=== PATIENT | male | born 1985 | race Caucasian/White ===

== ENCOUNTER 2016-06-03 11:30 | Outpatient (RCR) | payer MEDICARE, MEDICAID ==
--- OUTSIDE RECORDS SUMMARY | 2016-04-15 09:52 | XMS REPORT ---
Author Regina Gatica [facility] Address [address] [place], [place] [id number] Care Team Providers Care Computer Systems Technology Instructor Name Role Phone Regina Blas PCP Unavailable Allergies and Adverse Reactions Name Reaction Notes Latex Plan of Treatment Planned Activity Comments Planned Date Planned Time Plan/Goal FLU VAC NO PRSV 4 PEREZ 3 YRS+ 02/20/2015 12:00 AM CULTURE OTHR SPECIMN AEROBIC 04/09/2015 12:00 AM EXTREMITY STUDY 04/04/2015 12:00 AM X-RAY EXAM OF ANKLE 04/04/2015 12:00 AM X-RAY EXAM OF KNEE 3 04/04/2015 12:00 AM Medications Active Name Start Date Estimated Completion Date SIG Comments ProAir HFA 90 mcg/actuation inhalation HFA aerosol inhaler 03/20/20152015 inhale 1 - 2 puffs (90 - 180 mcg) by inhalation route every 4-6 hours as needed Naprosyn 500 mg oral tablet 04/04/2015 07/03/2015 take 1 tablet (500 mg) by oral route every 12 hours with food for 30 days clindamycin HCl 300 mg oral capsule 04/09/2015 Take one capsule three times day for the next 10 days. Problem List Not available. Vital Signs Date Time BP-Sys(mm[Hg] BP-Ashly(mm[Hg]) HR(bpm) RR(rpm) Temp WT HT HC BMI BSA BMI Percentile O2 Sat(%) 04/09/2015 1:33:00 PM 120 mmHg 82 mmHg 109 bpm 100.1 F 95 % 04/04/2015 11:01:00 AM 100 mmHg 80 mmHg 103 bpm 18 rpm 99.6 F 64 in 98 % 03/20/2015 2:10:00 PM 140 mmHg 90 mmHg 110 bpm 99.4 F 265 lbs 62 in 48.47 kg/m2 2.29 m2 98 % 02/20/2015 11:22:00 AM 130 mmHg 82 mmHg 88 bpm 99.5 F 265 lbs 62 in 48.4686 kg/m 2.2931 m 97 % 11/20/2014 12:38:00 PM 148 mmHg 98 mmHg 92 bpm 10 rpm 265 lbs 62 in 48.47 kg/m2 2.29 m2 97 % 11/20/2014 11:46:00 AM 140 mmHg 98 mmHg 92 bpm 98.7 F 98 % Social History Name Description Comments Tobacco Former smoker quit in 2008 Alcohol Current some day about once a month or two months. Denies illicit substance abuse History of Procedures Date Ordered Description Order Status 02/20/2015 12:00 AM COMPLETE CBC W/AUTO DIFF WBC Returned 02/20/2015 12:00 AM COMPREHEN METABOLIC PANEL Returned 02/20/2015 12:00 AM LIPID PANEL Returned 03/20/2015 12:00 AM CHEST X-RAY 2VW FRONTAL&LATL Returned Results Summary Not available. History Of Immunizations Not available. 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 Lymphedema of lower extremity lower extremeties right m[place] then left Sleep apnea Nov 20 2014 12:06PM Paraplegia Nov 20 2014 12:06PM Spina bifida Nov 20 2014 12:06PM Lymphedema Feb 20 2015 11:25AM Hyperlipidemia Feb 20 2015 11:25AM Sleep apnea Feb 28 2015 2:26PM Spina bifida Mar 20 2015 2:37PM Short of breath on exertion Mar 20 2015 2:16PM Sternum pain Mar 20 2015 2:16PM Rib pain on left side Mar 20 2015 2:16PM Asthma exacerbation Mar 20 2015 2:16PM Costochondritis Mar 20 2015 2:16PM Ankle pain, chronic, left Apr 04 2015 11:05AM Knee pain, acute, right Apr 04 2015 11:05AM Lymphedema Apr 04 2015 11:05AM Leg pain, central, left Apr 04 2015 11:05AM Right Lower Pressure ulcer Apr 09 2015 1:37PM Spina bifida Apr 09 2015 1:37PM Payers Insurance Name Company Name Plan Name Plan Number Policy Number Policy Group Number Start Date Medicare Part B Medicare Of [place] [id number] N/A [employer] [place] [employer] [place] [id number] N/A History of Encounters Visit Date Visit Type Provider 04/09/2015 Office visit Regina Blas UNIVERSAL GRINDER SET UP OPERATOR 04/04/2015 Office visit Beverley Salazar UNIVERSAL GRINDER SET UP OPERATOR 03/20/2015 Office visit Beverley Salazar UNIVERSAL GRINDER SET UP OPERATOR 02/20/2015 Office visit Beverley Salazar UNIVERSAL GRINDER SET UP OPERATOR 11/20/2014 Office visit Beverley Salazar UNIVERSAL GRINDER SET UP OPERATOR
== END 2016-07-01 16:34 | disposition home or self-care (01) ==
PROVIDERS: ATTEND Nurse Practitioner Family
DX: I89.0 Lymphedema, not elsewhere classified (principal)

== ENCOUNTER → 2017-02-12 | Outpatient (CLI) | payer MEDICARE, MEDICAID ==
--- NOTE | 2017-02-12 12:20 | Diagnostic Imaging Report ---
INDICATION: Fall, neck pain. Three views obtained in wheelchair. FINDINGS: Odontoid view is normal. Lateral view shows good alignment of C1-C6. C7 is not visualized on the lateral view. Body heights and disc spaces are well-maintained. AP view shows good alignment. No fractures are demonstrated. IMPRESSION: Limited cervical spine as described with only C1 through C6 visualized in the lateral view. No abnormalities demonstrated. Dictated by: Dictated on workstation # [id number]
--- NOTE | 2017-02-12 12:26 | Diagnostic Imaging Report ---
INDICATION: Fell two days ago. Continued neck and back pain. FINDINGS: AP and lateral views including swimmer's view. Good alignment of vertebral bodies C7-T1 is visualized and appears in good alignment. Thoracic spine shows body heights well-maintained. Minimal degenerative disc disease noted throughout the thoracic spine. Pedicles are intact. PSYCHOLOGICAL OPERATIONS shunt is visualized and is intact where seen. IMPRESSION: Minimal degenerative thoracic disc disease changes otherwise negative thoracic spine. Dictated by: Dictated on workstation # [id number]
== END ==
LOC: RAD 11:12
PROVIDERS: ATTEND Family Medicine
DX: M54.5 Low back pain (principal); M54.2 Cervicalgia
CPT/HCPCS: 72040; 72072

== ENCOUNTER 2017-03-31 13:52 | Emergency (ER) | payer MEDICARE, MEDICAID ==
[~2017-03-31] VITALS: Ht 152.4 cm; Wt 131.5 kg
[2017-03-31 14:27] LABS: BASOPHILS % (AUTO) 0 % (0-10); EOSINOPHILS % (AUTO) 0 % (0-10); LYMPHOCYTES # (AUTO) 1.8 X 10^3 (1.0-4.0); LYMPHOCYTES % (AUTO) 6 % (12-44); MEAN CORPUSCULAR HEMOGLOBIN 28 PG (25-34); MEAN CORPUSCULAR HGB CONC 34 G/DL (32-36); MEAN CORPUSCULAR VOLUME 81 FL (80-99); MEAN PLATELET VOLUME 9.5 FL (7.4-10.4); MONOCYTES # (AUTO) 2.2 X 10^3 (0.0-1.0); MONOCYTES % (AUTO) 8 % (0-12); NEUTROPHILS # (AUTO) 25.8 X 10^3 (1.8-7.8); NEUTROPHILS % (AUTO) 86 % (42-75); PLATELET COUNT 520 10^3/uL (130-400); RED CELL DISTRIBUTION WIDTH 13.9 % (10.0-14.5); WHITE BLOOD COUNT 29.9 10^3/uL (4.3-11.0)
[2017-03-31 14:40] LABS: NEUTROPHILS % (MANUAL) 55 %
[2017-03-31 14:41] LABS: BAND NEUTROPHILS 29 %; BASOPHILS % (MANUAL) 0 %; EOSINOPHILS % (MANUAL) 0 %; LYMPHOCYTES % (MANUAL) 11 %; REACTIVE LYMPHOCYTES 1 %
[2017-03-31] MEDS ORDERED: NS IV 1000 ML 1,000 ML IV ONE ×2 (14:44)
[2017-03-31] MEDS ORDERED: PIPERACILLIN SODIUM/TAZOBACTAM 4.5 GM in NS (IVPB) 100 ML IV ONE (14:45)
[2017-03-31 14:59] LABS: INR 1.1 (0.8-1.4); PROTHROMBIN TIME PATIENT 14.4 SEC (12.2-14.7)
[2017-03-31 15:07] LABS: BILIRUBIN,TOTAL 0.6 MG/DL (0.1-1.0); CALCIUM 9.7 MG/DL (8.5-10.1); CREATININE SERUM 3.19 MG/DL (0.60-1.30); POTASSIUM 4.8 MMOL/L (3.6-5.0); TOTAL PROTEIN 7.8 GM/DL (6.4-8.2)
[2017-03-31] MEDS ORDERED: ONDANSETRON 4 MG/2 ML (SDV) Z0FRAN IVP ONE (15:15)
--- OUTSIDE RECORDS SUMMARY | 2017-03-31 15:21 | XMS REPORT ---
Author Regina Gatica [facility] Address [address] [place], [place] [id number] Care Team Providers Care Urban Planning Professor Name Role Phone Regina Blas PCP Unavailable [...] with hypersomnolence 10/16/2014 Sleep study done at [facility] found severe obstructive sleep apnea, CPAP at 15cm water pressure ordered through [place], Insurance refusing to pay for CPAP but [...] Date Medicare Part B Medicare Of [place] [id number] N/A [employer] [place] Plan [employer] [place] [id number] N/A History of Encounters Visit Date Visit Type Provider 04/09/2015 Office visit Regina Blas INVASIVE CARDIOLOGIST 04/04/2015 Office visit Beverley Salazar INVASIVE CARDIOLOGIST 03/20/2015 Office visit Beverley Salazar INVASIVE CARDIOLOGIST 02/20/2015 Office visit Beverley Salazar INVASIVE CARDIOLOGIST 11/20/2014 Office visit Beverley Salazar INVASIVE CARDIOLOGIST
--- OUTSIDE RECORDS SUMMARY | 2017-03-31 15:22 | XMS REPORT ---
Author Author Beverley Salazar Organization [facility] Address [address] [place] [id number] Care Team Providers Care Game Designer Name Role Phone Beverley Salazar PCP Unavailable Allergies and Adverse Reactions Name Reaction Notes Latex No known drug allergy Plan of Treatment Planned Activity Comments Planned Date Planned Time Plan/Goal FLU VAC NO PRSV 4 PEREZ 3 YRS+ 02/20/2015 12:00 AM EXTREMITY STUDY 04/04/2015 12:00 AM X-RAY EXAM OF ANKLE 04/04/2015 12:00 AM X-RAY EXAM OF KNEE 3 04/04/2015 12:[address] HEAD/BRAIN W/O & W/DYE 05/03/2015 12:00 AM COMPLETE CBC W/AUTO DIFF WBC 05/03/2015 12:00 AM COMPREHEN METABOLIC PANEL 05/03/2015 12:00 AM ASSAY OF TROPONIN QUANT 10/08/2015 12:00 AM COMPLETE CBC W/AUTO DIFF WBC 09/27/2015 12:00 AM COMPREHEN METABOLIC PANEL 09/27/2015 12:00 AM LIPID PANEL 09/27/2015 12:00 AM GLYCOSYLATED HEMOGLOBIN TEST 09/27/2015 12:00 AM ASSAY THYROID STIM HORMONE 09/27/2015 12:00 AM URINALYSIS AUTO W/O SCOPE 09/27/2015 12:00 AM ASSAY OF FREE THYROXINE 09/27/2015 12:00 AM Epigastric burning and painHistory of hiatel hernia 11/05/2015 2:00 PM Medications Active Name Start Date Estimated Completion Date SIG Comments Silvadene 1 % topical cream 08/16/2015 11/14/2015 apply to affected area(s) by topical route daily for 30 days Aquacel Foam 6 X 6 " topical bandage apply bandage to affected area(s) lisinopril 5 mg oral tablet 09/27/2015 03/25/2016 take 1 tablet (5 mg) by oral route once daily for 30 days omeprazole 20 mg oral capsule,delayed release(DR/EC) 10/08/2015 02/05/2016 take 1 capsule (20 mg) by oral route once daily before a meal for 30 days Name Start Date Expiration Date SIG Comments clindamycin HCl 300 mg oral capsule 04/09/2015 Take one capsule three times day for the next 10 days. Bactroban 2 % topical ointment 07/25/2015 08/24/2015 apply a small amount to the affected area by topical route 3 times per day for 10 days sulfamethoxazole-trimethoprim 800-160 mg oral tablet 07/25/2015 08/04/2015 take 1 tablet by oral route every 12 hours for 10 days Discontinued Name Start Date Discontinued Date SIG Comments ProAir HFA 90 mcg/actuation inhalation HFA aerosol inhaler 03/20/20152015 inhale 1 - 2 puffs (90 - 180 mcg) by inhalation route every 4-6 hours as needed buspirone 10 mg oral tablet 04/12/2015 07/01/2015 take 0.5 tablet by oral route 2 times a day as needed for 30 days citalopram 20 mg oral tablet 04/12/2015 09/27/2015 take 0.5 tablet by oral route daily Naprosyn 500 mg oral tablet 07/01/2015 09/27/2015 take 1 tablet (500 mg) by oral route every 12 hours with food for 30 days Problem List Description Status Onset Hydrocephalus Active 05/03/2015 Headache Active 05/03/2015 Venous ulcer Active 05/03/2015 Vital Signs Date Time BP-Sys(mm[Hg] BP-Ashly(mm[Hg]) HR(bpm) RR(rpm) Temp WT HT HC BMI BSA BMI Percentile O2 Sat(%) 10/25/2015 2:43:00 PM 132 mmHg 80 mmHg 102 bpm 22 rpm 98.1 F 98 % 10/08/2015 10:59:00 AM 142 mmHg 82 mmHg 93 bpm 20 rpm 98.7 F 96 % 09/27/2015 3:48:00 PM 154 mmHg 84 mmHg 95 bpm 18 rpm 98 F 61 in 98 % 08/16/2015 3:47:00 PM 110 mmHg 80 mmHg 112 bpm 16 rpm 99 F 61 in 97 % 07/25/2015 3:00:00 PM 139 mmHg 94 mmHg 114 bpm 20 rpm 98.1 F 306 lbs 61 in 57.82 kg/m2 2.44 m2 98 % 07/01/2015 2:03:00 PM 140 mmHg 90 mmHg 97 bpm 18 rpm 99.4 F 100 % 05/03/2015 3:03:00 PM 134 mmHg 70 mmHg 80 bpm 16 rpm 98.7 F 98 % 04/12/2015 1:18:00 PM 136 mmHg 78 mmHg 82 bpm 97.2 F 306 lbs 100 % 04/09/2015 1:33:00 PM 120 mmHg 82 mmHg [...] Ordered Description Order Status 02/20/2015 12:00 AM Occupational Therapy Consult Reviewed 02/20/2015 12:00 AM Physical Therapy Consultation Returned 02/20/2015 12:00 AM COMPLETE CBC W/AUTO DIFF WBC Returned 02/20/2015 12:00 AM COMPREHEN METABOLIC PANEL Returned 02/20/2015 12:00 AM LIPID PANEL Returned 03/20/2015 12:00 AM CHEST X-RAY 2VW FRONTAL&LATL Returned 04/09/2015 12:00 AM CULTURE OTHR SPECIMN AEROBIC Returned 07/01/2015 12:00 AM Physical Therapy Consult Returned 10/08/2015 12:00 AM ELECTROCARDIOGRAM COMPLETE Returned 10/08/2015 12:00 AM CHEST X-RAY 2VW FRONTAL&LATL Returned 10/08/2015 12:00 AM COMPLETE CBC W/AUTO DIFF WBC Returned 10/08/2015 12:00 AM COMPREHEN METABOLIC PANEL Returned Results Summary Not available. History Of Immunizations Not available. History of Past Illness Name Date of Onset Comments Anemia Asthma Insomnia Seizure Sleep apnea with hypersomnolence 10/16/2014 Sleep study done at [facility] found severe obstructive sleep apnea, CPAP at 15cm water pressure ordered through [place], Insurance refusing to pay for CPAP but can do nocturnal Oxygen Spina Bifida With Hydrocephalus Paraplegic 1988 due to spina bifida Lymphedema of lower extremity lower extremeties right [place] then left Hydrocephalus 05/03/2015 Headache 05/03/2015 Venous ulcer 05/03/2015 Sleep apnea Nov 20 2014 12:06PM Paraplegia [...] 1:37PM Spina bifida Apr 09 2015 1:37PM Anxiety Apr 12 2015 1:24PM Hydrocephalus May 03 2015 3:08PM History of pituitary cancer May 03 2015 3:08PM Headache May 03 2015 3:08PM Blurred vision May 03 2015 3:08PM History of spina bifida May 03 2015 3:08PM Venous ulcer May 03 2015 3:08PM Wrist pain, acute, left Jul 01 2015 2:05PM Paraplegic immobility syndrome Jul 01 2015 2:05PM Cellulitis Jul 25 2015 3:01PM Spina bifida Jul 25 2015 3:01PM Paraplegia Jul 25 2015 3:01PM Morbid obesity with BMI of 50.0-59.9, adult Jul 25 2015 3:01PM Decubitus skin ulcer Aug 16 2015 3:52PM Hypertension Sep 27 2015 3:51PM Obesity Sep 27 2015 3:51PM Lymphedema Sep 27 2015 3:51PM Sleep apnea Sep 27 2015 3:51PM Paraplegic immobility syndrome Sep 27 2015 3:51PM Family history of diabetes mellitus Sep 27 2015 3:51PM Family history of hypothyroidism Sep 27 2015 3:51PM Chest tightness or pressure Oct 08 2015 11:02AM Epigastric burning sensation Oct 08 2015 11:02AM Hypertension Oct 08 2015 11:02AM Hydrocephalus Oct 08 2015 11:02AM Decubitus skin ulcer Sep 27 2015 3:51PM Decubitus skin ulcer Oct 25 2015 2:47PM Spina bifida Oct 25 2015 2:47PM Paraplegia Oct 25 2015 2:47PM Incontinent of urine Oct 25 2015 2:47PM Payers Insurance Name Company Name Plan Name Plan Number Policy Number Policy Group Number Start Date Medicare Part B Medicare Of [place] [id number] N/A [employer] [place] Plan [employer] [place] Plan [id number] N/A History of Encounters Visit Date Visit Type Provider 10/30/2015 Office visit Beverley Salazar APRN 10/25/2015 Office visit Beverley Salazar APRN 10/08/2015 Office visit Regina Blas APRN 09/27/2015 Office visit 09/27/2015 Office visit Beverley Salazar APRN 08/16/2015 Office visit Beverley Salazar APRN 07/25/2015 Office visit Beverley Salazar APRN 07/01/2015 Office visit Beverley Salazar APRN 05/03/2015 Office visit Regina Blas APRN 04/12/2015 Office visit Beverley Salazar APRN 04/09/2015 Office visit Regina Blas APRN 04/04/2015 Office visit 04/04/2015 Office visit Beverley Salazar APRN 03/20/2015 Office visit 03/20/2015 Office visit Beverley Salazar APRN 02/20/2015 Office visit Beverley Salazar APRN 11/20/2014 Office visit Beverley Salazar APRN
--- OUTSIDE RECORDS SUMMARY | 2017-03-31 15:22 | XMS REPORT ---
Author Author Beverley Salazar Organization [facility] Address [address] [place], [place] [id number] Care Team Providers Care Sales Agent Pest Control Service Name Role Phone Beverley Salazar PCP Unavailable [...] ASSAY OF FREE THYROXINE 09/27/2015 12:00 AM X-RAY EXAM TRUNK SPINE STAND 01/23/2016 12:00 AM Epigastric burning and painHistory of hiatel hernia 11/05/2015 2:00 PM Medications Active Name Start Date Estimated Completion Date SIG Comments Aquacel Foam 6 X 6 " topical bandage apply bandage to affected area(s) docusate sodium 100 mg oral capsule 11/27/2015 11/21/2016 take 1 capsule (100 mg) by oral route 2 times per day for 90 days Metamucil oral powder 11/27/2015 11/21/2016 use as directed 1 scoop in liquid of choice by oral route qd Probiotic OTC as recommended by pharmacist 11/27/2015 11/21/2016 use daily omeprazole 20 mg oral capsule,delayed release(DR/EC) 12/06/2015 06/03/2016 TAKE ONE CAPSULE BY MOUTH ONE TIME DAILY lisinopril 5 mg oral tablet 12/10/2015 06/07/2016 take 1 tablet (5 mg) by oral route once daily for 90 days tizanidine 2 mg oral tablet 03/03/2016 03/17/2016 take 1-2 tablets by oral route every 8 hours as needed for 14 days Tylenol-Codeine #3 300-30 mg oral tablet 03/03/2016 03/07/2016 take 1 tablet by oral route every 6 hours as needed for 4 days Name Start Date Expiration Date SIG [...] route every 12 hours for 10 days Silvadene 1 % topical cream 08/16/2015 11/14/2015 apply to affected area(s) by topical route daily for 30 days omeprazole 20 mg oral capsule,delayed release(DR/EC) 10/08/2015 02/05/2016 take 1 capsule (20 mg) by oral route once daily before a meal for 30 days Discontinued Name Start Date Discontinued Date [...] HC BMI BSA BMI Percentile O2 Sat(%) 03/03/2016 11:25:00 AM 96 mmHg 60 mmHg 94 bpm 98.1 F 95 % 02/04/2016 11:43:00 AM 120 mmHg 80 mmHg 88 bpm 18 rpm 97.8 F 99 % 01/23/2016 11:06:00 AM 114 mmHg 80 mmHg 81 bpm 18 rpm 98 F 97 % 11/30/2015 3:11:00 PM 107 bpm 20 rpm 99 F 98 % 10/25/2015 2:43:00 PM 132 mmHg 80 mmHg [...] rpm 98.1 F 306 lbs 61 in 57.8176 kg/m 2.4441 m 98 % 07/01/2015 2:03:00 PM 140 mmHg [...] bpm 99.4 F 265 lbs 62 in 48.4686 kg/m 2.2931 m 98 % 02/20/2015 11:22:00 AM 130 mmHg 82 mmHg 88 bpm 99.5 F 265 lbs 62 in 48.47 kg/m2 2.29 m2 97 % 11/20/2014 12:38:00 PM 148 mmHg 98 mmHg 92 bpm 10 rpm 265 lbs 62 in 48.4686 kg/m 2.2931 m 97 % 11/20/2014 11:46:00 AM 140 mmHg [...] 10/08/2015 12:00 AM COMPREHEN METABOLIC PANEL Returned 11/30/2015 12:00 AM HEPATIC FUNCTION PANEL Returned 11/30/2015 12:00 AM OCCULT BLD FECES 1-3 TESTS Reviewed Results Summary Data and Description Results 11/30/2015 2:55 PM SGOT/AST 15.0 IU/LSGPT/ALT 23.0 IU/LALK PHOS 68.0 IU/LTOTAL PROTEIN 6.90 g/dLALBUMIN 4.20 g/dLTOTAL BILI 0.20 mg/dLDIRECT BILI 0.10 mg/ dLINDIRECT BILI 0.10 mg/dL History Of Immunizations Not available. 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 bifida Lymphedema of lower extremity lower extremeties right [place] then left Hydrocephalus 05/03/2015 Headache 05/03/2015 Venous ulcer 05/03/2015 Incontinence Sleep apnea Sleep apnea Nov 20 2014 12:06PM Paraplegia [...] Incontinent of urine Oct 25 2015 2:47PM Constipation Nov 27 2015 10:34PM Pale stool Nov 30 2015 3:12PM Blood in stool Nov 30 2015 3:12PM Hemorrhoid Nov 30 2015 3:12PM Decubitus skin ulcer Dec 26 2015 9:10PM Spina bifida Dec 26 2015 9:10PM Paraplegia Dec 26 2015 9:10PM Thoracic back pain Jan 23 2016 11:08AM Lumbar back pain Jan 23 2016 11:08AM Back pain Feb 04 2016 11:45AM Sleep apnea with cognitive complaints Feb 04 2016 11:45AM Muscle strain Mar 03 2016 11:27AM Payers Insurance Name Company Name Plan Name Plan Number Policy Number Policy Group Number Start Date Medicare Part A Medicare RHC [id number] N/A [employer] - [facility] [place] State Plan [employer] - [place] [facility] State Plan [id number] N/A Medicare Part A Medicare - Lab/Xray [id number] N/A Medicare Part B Medicare Of [place] [id number] N/A [employer] [place] State Plan [employer] [place] State Plan [id number] N/A History of Encounters Visit Date Visit Type Provider 03/03/2016 Office visit Beverley Salazar PARTY PLAN SALES AGENT 02/04/2016 Office visit Beverley Salazar PARTY PLAN SALES AGENT 01/23/2016 Office visit Beverley Salazar APRN 11/30/2015 Office visit Regina Blas PARTY PLAN SALES AGENT 10/30/2015 Voided Beverley Salazar PARTY PLAN SALES AGENT 10/25/2015 Office visit Beverley Salazar PARTY PLAN SALES AGENT 10/08/2015 Office visit Regina Blas PARTY PLAN SALES AGENT 09/27/2015 Office visit 09/27/2015 Office visit Beverley Salazar PARTY PLAN SALES AGENT 08/16/2015 Office visit Beverley Salazar PARTY PLAN SALES AGENT 07/25/2015 Office visit Beverley Salazar PARTY PLAN SALES AGENT 07/01/2015 Office visit Beverley Salazar APRN 05/03/2015 Office visit Regina Blas PARTY PLAN SALES AGENT 04/12/2015 Office visit Beverley Salazar APRN 04/09/2015 Office visit Regina Blas APRN 04/04/2015 Office visit 04/04/2015 Office visit Beverley Salazar PARTY PLAN SALES AGENT 03/20/2015 Office visit 03/20/2015 Office visit Beverleywendy Salazar APRN 02/20/2015 Office visit Beverley Salazar APRN 11/20/2014 Office visit Beverley Salazar APRN
--- OUTSIDE RECORDS SUMMARY | 2017-03-31 15:23 | XMS REPORT ---
Author Author Beverley Salazar Organization [facility] Address [address] [place] [id number] Care Team Providers Care Culinary Specialist Name Role Phone Beverley Salazar PCP Unavailable [...] with hypersomnolence 10/16/2014 Sleep study done at [facility] found severe obstructive sleep apnea, CPAP at 15cm water pressure ordered through [place], Insurance refusing to pay for CPAP but [...] Date Medicare Part B Medicare Of [place] [id number] N/A [employer] [place] [employer] [place] [id number] N/A History of Encounters Visit Date Visit [...]
--- OUTSIDE RECORDS SUMMARY | 2017-03-31 15:24 | XMS REPORT ---
Author Author Beverley Salazar Organization [facility] Address [address] [place], [place] [address] Care Team Providers Care Preparation Department Supervisor Name Role Phone Beverley Salazar PCP Unavailable Allergies and Adverse Reactions Name Reaction Notes Latex Plan of Treatment Planned Activity Comments Planned Date Planned Time Plan/Goal COMPLETE CBC W/AUTO DIFF WBC 02/20/2015 12:00 AM COMPREHEN METABOLIC PANEL 02/20/2015 12:00 AM LIPID PANEL 02/20/2015 12:00 AM FLU VAC NO PRSV 4 PEREZ 3 YRS+ 02/20/2015 12:00 AM Medications Not available. Problem List Not available. Vital Signs Date Time BP-Sys(mm[Hg] BP-Ashly(mm[Hg]) HR(bpm) RR(rpm) Temp WT HT HC BMI BSA BMI Percentile O2 Sat(%) 02/20/2015 11:22:00 AM 130 mmHg 82 mmHg [...] Denies illicit substance abuse History of Procedures Not available. Results Summary Not available. History Of Immunizations Not available. 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
--- OUTSIDE RECORDS SUMMARY | 2017-03-31 15:25 | XMS REPORT ---
Author Author Beverley Salazar Organization [facility] Address [address] [place] [id number] Care Team Providers Care Woodwork Teacher Name Role Phone Beverley Salazar PCP Unavailable [...] with hypersomnolence 10/16/2014 Sleep study done at [facility] found severe obstructive sleep apnea, CPAP at 15cm water pressure ordered through [place], Insurance refusing to pay for CPAP but [...] 2015 2:47PM Paraplegia Oct 25 2015 2:47PM Payers Insurance Name Company Name Plan Name Plan Number Policy Number Policy Group Number Start Date Medicare Part B Medicare Of [place] [id number] N/A [employer] [place] State Plan Amerigroup [place] State Plan [id number] N/A History of Encounters Visit Date Visit Type Provider 10/25/2015 Office visit Beverley Salazar APRN 10/08/2015 [...]
--- OUTSIDE RECORDS SUMMARY | 2017-03-31 15:25 | XMS REPORT ---
Author Author Beverley Salazar Organization [facility] Address [address] [place], [place] [address] Care Team Providers Care Densitometrist Name Role Phone Beverley Salazar PCP Unavailable [...] EXAM TRUNK SPINE STAND 01/23/2016 12:00 AM COMPLETE CBC W/AUTO DIFF WBC 03/17/2016 12:00 AM COMPREHEN METABOLIC PANEL 03/17/2016 12:00 AM LIPID PANEL 03/17/2016 12:[address] HEAD/BRAIN W/O & W/DYE 03/13/2016 12:00 AM X-RAY EXAM NECK SPINE 2-3 VW 03/13/2016 12:00 AM URINALYSIS AUTO W/O SCOPE 03/17/2016 12:00 AM Epigastric burning and painHistory of [...] 8 hours as needed for 14 days lisinopril 5 mg oral tablet 03/06/2016 TAKE ONE TABLET BY MOUTH ONE TIME DAILY -LOT: Name Start Date Expiration Date SIG Comments [...] daily before a meal for 30 days Tylenol-Codeine #3 300-30 mg oral tablet 03/03/2016 03/07/2016 take 1 tablet by oral route every 6 hours as needed for 4 days Discontinued Name Start Date Discontinued Date [...] HC BMI BSA BMI Percentile O2 Sat(%) 03/13/2016 6:40:00 PM 150 mmHg 90 mmHg 105 bpm 18 rpm 97.5 F 99 % 03/03/2016 11:25:00 AM 96 mmHg 60 mmHg [...] with hypersomnolence 10/16/2014 Sleep study done at [facility] found severe obstructive sleep apnea, CPAP at 15cm water pressure ordered through [facility], Insurance refusing to pay for CPAP but [...] 11:45AM Muscle strain Mar 03 2016 11:27AM Obstructive sleep apnea hypopnea, severe Mar 03 2016 11:27AM Hypertension Mar 03 2016 11:27AM Headache Mar 13 2016 6:43PM Neck and shoulder pain Mar 13 2016 6:43PM Vision blurred Mar 13 2016 6:43PM Hydrocephalus Mar 13 2016 6:43PM Hypertension Mar 13 2016 6:43PM Spina bifida Mar 13 2016 6:43PM Paraplegia Mar 13 2016 6:43PM Payers Insurance Name Company Name Plan Name Plan Number Policy Number Policy Group Number Start Date Medicare Part A Medicare RHC [id number] N/A [facility] [place] State Plan [facility] State Plan [id number] N/A Medicare Part A Medicare - Lab/Xray [id number] N/A Medicare Part B Medicare Of [place] [id number] N/A [facility] State Plan [id number] N/A History of Encounters Visit Date Visit Type Provider 03/13/2016 Office visit Beverley Salazar APRN 03/03/2016 Office visit Beverley Salazar TRACK REPAIRER HELPER 02/04/2016 Office visit Beverley Salazar TRACK REPAIRER HELPER 01/23/2016 Office visit Beverley Salazar TRACK REPAIRER HELPER 11/30/2015 Office visit Regina Blas TRACK REPAIRER HELPER 10/30/2015 Voided Beverley Salazar TRACK REPAIRER HELPER 10/25/2015 Office visit Beverley Salazar TRACK REPAIRER HELPER 10/08/2015 Office visit Regina Blas TRACK REPAIRER HELPER 09/27/2015 Office visit 09/27/2015 Office visit Beverley Salazar TRACK REPAIRER HELPER 08/16/2015 Office visit Beverley Salazar TRACK REPAIRER HELPER 07/25/2015 Office visit Beverley Salazar TRACK REPAIRER HELPER 07/01/2015 Office visit Beverley Salazar TRACK REPAIRER HELPER 05/03/2015 Office visit Regina Blas TRACK REPAIRER HELPER 04/12/2015 Office visit Beverley Salazar TRACK REPAIRER HELPER 04/09/2015 Office visit Regina Blas TRACK REPAIRER HELPER 04/04/2015 Office visit 04/04/2015 Office visit Beverley Salazar TRACK REPAIRER HELPER 03/20/2015 Office visit 03/20/2015 Office visit Beverley Salazar TRACK REPAIRER HELPER 02/20/2015 Office visit Beverley Salazar TRACK REPAIRER HELPER 11/20/2014 Office visit Beverley Salazar TRACK REPAIRER HELPER
--- NOTE | 2017-03-31 15:27 | Diagnostic Imaging Report ---
INDICATION: Paraplegia with decreased level of consciousness and leukocytosis. TECHNIQUE: Semiupright portable view of the chest is obtained with comparison made to study of 02/12/2017. FINDINGS: There is mild cardiomegaly and pulmonary venous congestion. There is mild increased density throughout the lungs which may be due to mild diffuse edema or possible pneumonitis. No consolidation is seen. Left ventriculoperitoneal shunt tube is noted. There appears to be dense calcification at the level of the left common carotid artery. IMPRESSION: Mild diffuse edema and/or pneumonitis in the lungs without focal consolidation or pneumothorax detected. Dictated by: Dictated on workstation # [id number]
--- OUTSIDE RECORDS SUMMARY | 2017-03-31 15:28 | XMS REPORT ---
Author Author Beverley Salazar Organization [facility] Address [address] [place], [place] [id number] Care Team Providers Care As400 Programmer Name Role Phone Beverley Salazar PCP Unavailable Allergies and Adverse Reactions Name Reaction Notes Latex Plan of Treatment Planned Activity Comments Planned Date Planned Time Plan/Goal FLU VAC NO PRSV 4 PEREZ 3 YRS+ 02/20/2015 12:00 AM Medications Not available. Problem List Not available. Vital Signs Date Time BP-Sys(mm[Hg] BP-Ashly(mm[Hg]) HR(bpm) RR(rpm) Temp WT HT HC BMI BSA BMI Percentile O2 Sat(%) 03/20/2015 2:10:00 PM 140 mmHg 90 mmHg [...] Returned 02/20/2015 12:00 AM LIPID PANEL Returned Results Summary Not available. History Of Immunizations Not available. History of Past Illness Name Date of Onset Comments Anemia Asthma Insomnia Seizure Sleep apnea with hypersomnolence 10/16/2014 Sleep study done at [facility] found severe obstructive sleep apnea, CPAP at 15cm water pressure ordered through [place], Insurance refusing to pay for CPAP but [...] 2:26PM Spina bifida Mar 20 2015 2:37PM Payers Insurance Name Company Name Plan Name Plan Number Policy Number Policy Group Number Start Date Medicare Part B Medicare Of [place] [id number] N/A [employer] [place] [employer] [place] [id number] N/A History of Encounters Visit Date Visit Type Provider 03/20/2015 Office visit Beverley Salazar APRN 02/20/2015 Office visit Beverley Salazar APRN 11/20/2014 Office visit Beverley Salazar APRN
--- OUTSIDE RECORDS SUMMARY | 2017-03-31 15:28 | XMS REPORT ---
Author Author Beverley Salazar Organization [facility] Address [address] [place], [place] [phone] Care Team Providers Care Market Research Executive Name Role Phone Beverley Salazar PCP Unavailable [...] 6 hours as needed for 4 days lisinopril 5 mg oral tablet 03/06/2016 [...] with hypersomnolence 10/16/2014 [facility] found severe obstructive sleep apnea, CPAP at 15cm water pressure ordered through [employer], Insurance refusing to pay for CPAP but [...] 2016 11:27AM Hypertension Mar 03 2016 11:27AM Payers Insurance Name Company Name Plan Name Plan Number Policy Number Policy Group Number Start Date Medicare Part A Medicare RHC [id number] N/A [employer] - [facility] [address] - [place] State Plan [facility] State Plan [id number] N/A Medicare Part A Medicare - Lab/Xray [id number] N/A Medicare Part B Medicare Of [place] [id number] N/A [employer] [place] State Plan [facility] [id number] N/A History of Encounters Visit Date Visit Type Provider 03/03/2016 Office visit Beverley Salazar APRN 02/04/2016 Office visit Beverley Salazar DRAPERY SEWER HAND 01/23/2016 Office visit Beverley Salazar APRN 11/30/2015 Office visit Regina Blas APRN 10/30/2015 Voided Beverley Salazar APRN 10/25/2015 Office visit Beverley Salazar DRAPERY SEWER HAND 10/08/2015 Office visit Regina Blas APRN 09/27/2015 Office visit 09/27/2015 Office visit Beverley Salazar APRN 08/16/2015 Office visit Beverley Salazar APRN 07/25/2015 Office visit Beverley Salazar APRN 07/01/2015 Office visit Beverley Salazar DRAPERY SEWER HAND 05/03/2015 Office visit Regina Blas APRN 04/12/2015 Office visit Beverley Salazar APRN 04/09/2015 Office visit Regina Blas APRN 04/04/2015 Office visit 04/04/2015 Office visit Beverley Salazar APRN 03/20/2015 Office visit 03/20/2015 Office visit Beverley Salazar APRN 02/20/2015 Office visit Beverley Salazar APRN 11/20/2014 Office visit Beverley Salazar APRN
--- OUTSIDE RECORDS SUMMARY | 2017-03-31 15:29 | XMS REPORT ---
Author Author Beverley Salazar Organization [facility] Address [address] [place], [place] [id number] Care Team Providers Care Bread Molder Name Role Phone Beverley Salazar PCP Unavailable [...] with hypersomnolence 10/16/2014 Sleep study done at [facility] found severe obstructive sleep apnea, CPAP at 15cm water pressure ordered through [employer], Insurance refusing to pay for CPAP but can do nocturnal Oxygen Spina Bifida With Hydrocephalus 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 Lymphedema of lower extremity lower extremeties right moreso then left Sleep apnea Timoteo 7 2015 12:06PM Paraplegia Nov 20 2014 12:06PM Spina bifida Nov 20 2014 12:06PM Lymphedema Feb 20 2015 11:25AM Hyperlipidemia Feb 20 2015 11:25AM Sleep apnea Feb 28 2015 2:26PM Payers Insurance Name Company Name Plan Name Plan Number Policy Number Policy Group Number Start Date Medicare Part B Medicare Of [place] [id number] N/A [employer] [place] [employer] [place] State Plan [id number] N/A History of Encounters Visit Date Visit Type Provider 02/20/2015 Office visit Beverley Salazar APRN 11/20/2014 Office visit Beverley Salazar APRN
--- OUTSIDE RECORDS SUMMARY | 2017-03-31 15:30 | XMS REPORT | Continuity of Care Document ---
Author Author [facility] Organization [facility] Address [facility] [address] [place] [address] Phone Unavailable Support Name Relationship Address Phone INGRID SONAM ALICIA M.D. Caregiver [address] [place] [phone] JAROD ARITA D.O. Caregiver [address] [facility] [address] [place] [phone] JORDAN JUAREZ Next Of Kin [address] [place], [place] [address] Insurance Providers Payer Name Policy Number Subscriber Name Relationship Medicare [id number] Lavell Smith 18 Self / Same As Patient [facility] [id number] Lavell Smith 18 Self / Same As Patient Advance Directives Directive Response Recorded Date/Time Do you have an Advanced Directive? No 08/04/07 9:59pm Advance Directives No 08/10/15 1:30am Living Will N N 12/10/15 6:32pm Health Care Proxy No 12/10/15 6:32pm Power of Part Time Flexible Clerk for Health Care No 08/10/15 1:30am Organ, Tissue, or Eye Donor No 08/10/15 1:30am Do you have a signed organ donor card? No 08/09/15 10:21pm Problems Active Problems Medical Problem Onset Date Status Cellulitis Unknown Acute Decubitus ulcer due to spina bifida Unknown Acute Edema, peripheral Unknown Acute Hemorrhoid Unknown Acute foot ulceration Unknown Acute Medications Past Home Medications Medication Directions Ordered Status [No Active Meds] , 09/18/08 Discontinued Ciprofloxacin Hcl 500 Mg Tablet, 500 Mg Oral Every 12 Hours 09/18/08 Discontinued Tramadol Hcl 50 Mg Tablet, 1 Oral Three Times Daily As Needed 10/03/08 Discontinued Naproxen 500 Mg Tablet, 1 Tab Oral Twice A Day 11/15/08 Discontinued Tramadol Hcl 50 Mg Tablet, 50 Mg Oral Every 4 Hours 12/25/08 Discontinued Levofloxacin 250 Mg Tablet, 250 Mg Oral Daily 06/25/09 Discontinued Sulfamethoxazole/Trimethoprim* 1 Tab Tablet, 1 Tab Oral Twice A Day 09/27/09 Discontinued Sulfamethoxazole/Trimethoprim* 1 Tab Tablet, 1 Tab Oral Twice A Day 09/29/09 Discontinued Prednisone 20 Mg Tablet, 40 Mg Oral Daily 02/11/10 Discontinued Albuterol 17 Gm Aerosol, 2 Puff Inhalation Every 4-6 Hours As Needed Discontinued Naproxen 500 Mg Tablet, 500 Mg Oral Twice Daily As Needed 07/24/10 Discontinued [None] , 09/13/10 Discontinued Azithromycin (Z Robel*) 250 Mg Tablet, 250 Mg Oral Daily 09/13/10 Discontinued Albuterol 17 Gm Aerosol, 2 Puff Inhalation Every 4-6 Hours As Needed Discontinued Lisinopril (Zestril 5 Mg Tab*) 5 Mg Tablet, 5 Mg Oral Daily 10/07/10 Discontinued [Lortab] , 5 Mg Oral Every 6 Hours As Needed 10/10/10 Discontinued Acetaminophen/Hydrocodone Bitart 1 Tab Tablet, 1 Tab Oral Every 6 Hrs As Needed For Pain 10/14/10 Discontinued Ciprofloxacin Hcl 500 Mg Tablet, 500 Mg Oral Twice A Day 03/01/12 Discontinued Minocycline Hcl 90 Mg Tab.sr.24h, 90 Mg Oral Daily 03/01/12 Discontinued Acetaminophen/Hydrocodone Bitart 1 Tab Tablet, 1 Tab Oral Every 4 Hrs As Needed Pain 03/09/12 Discontinued Lisinopril (Zestril 5 Mg Tab*) 5 Mg Tablet, 5 Mg Oral Daily 03/09/12 Discontinued Lisinopril (Zestril 20 Mg Tab*) 20 Mg Tablet, 20 Mg Oral Daily 03/31/12 Discontinued Cephalexin Monohydrate 500 Mg Capsule, 500 Mg Oral Four Times Daily 03/31/12 Discontinued Amoxicillin/Clavulanate Potassium 1 Tab Tablet, 1 Tab Oral Three Times A Day 07/25/12 Discontinued Lisinopril 20 Mg Tablet, 20 Mg Oral Daily 07/25/12 Discontinued Levofloxacin 500 Mg Tablet, 500 Mg Oral Daily 08/19/12 Discontinued Doxylamine Succinate 25 Mg Tablet, 25 Mg Oral Bedtime 10/25/12 Discontinued Tramadol Hcl 50 Mg Tablet, 50 Mg Oral Every 6 Hours 10/25/12 Discontinued Levofloxacin 500 Mg Tablet, 500 Mg Oral Daily 10/27/12 Discontinued [Lasix] , 03/13/13 Discontinued Melatonin 10 Mg Capsule, 10 Mg Oral Bedtime 03/13/13 Discontinued [Flexeril] , 03/13/13 Discontinued Acetaminophen 500 Mg Tablet, 500 Mg Oral Every 4 Hours As Needed 03/17/13 Discontinued Doxycycline Hyclate 100 Mg Tablet, 100 Mg Oral Twice A Day 03/17/13 Discontinued Levofloxacin 500 Mg Tablet, 500 Mg Oral Daily 03/17/13 Discontinued Metoprolol Succinate 25 Mg Tab.sr.24h, 25 Mg Oral Twice A Day 03/17/13 Discontinued Phenytoin Sodium 100 Mg Capsule, 300 Mg Oral Daily 03/17/13 Discontinued Sennosides 8.6 Mg Tablet, 1 Tab Oral Daily 04/09/15 Discontinued Clindamycin Hcl 150 Mg Capsule, 150 Mg Oral Four Times Daily 04/10/15 Discontinued Social History Social History Problem Response Recorded Date/Time Smoking Status Current every day smoker 08/10/2015 1:30am Tobacco Use Denies Use 08/09/2015 11:15pm Query Response Start Date Stop Date Smoking Status Current every day smoker Hospital Discharge Instructions Current inpatient/outpatient. Discharge instructions are currently unavailable. Plan of Care Prescriptions Functional Status No functional status results. Allergies, Adverse Reactions, Alerts Allergen Type Severity Reaction Status Last Updated Latex Allergy Mild Active 07/20/12 Immunizations Name Given Type Hx Diphtheria, Pertussis, Tetanus Vaccination Unknown Historical Hx Hepatitis B Vaccination Unknown Historical Hx Influenza Vaccination Yes Historical Hx Pneumococcal Vaccination No Historical Hx Tetanus, Diphtheria Vaccination Yes Historical Hx Tetanus Toxoid Vaccination Yes Historical Vital Signs No known vital signs results. Results Pending Laboratory Results Test Name Collection Date/Time Procedures Procedure Status Date Provider(s) DRAKE SUBQ TISSUE 20 SQ CM/< Completed 09/16/15 DRAKE SUBQ TISSUE 20 SQ CM/< Completed 09/16/15 DRAKE SUBQ TISSUE 20 SQ CM/< Completed 09/16/15 DRAKE SUBQ TISSUE 20 SQ CM/< Completed 09/16/15 DRAKE SUBQ TISSUE ADD-ON Completed 09/16/15 ROUTINE VENIPUNCTURE Completed 10/08/15 CHEST X-RAY 2VW FRONTAL&LATL Completed 10/08/15 COMPREHEN METABOLIC PANEL Completed 10/08/15 ASSAY OF TROPONIN QUANT Completed 10/08/15 COMPLETE CBC AUTOMATED Completed 10/08/15 DRAKE SUBQ TISSUE 20 SQ CM/< Completed 10/21/15 DRAKE SUBQ TISSUE 20 SQ CM/< Completed 10/21/15 DRAKE SUBQ TISSUE 20 SQ CM/< Completed 10/21/15 DRAKE SUBQ TISSUE 20 SQ CM/< Completed 10/21/15 BIOPSY SKIN LESION Completed 10/21/15 TISSUE EXAM BY PATHOLOGIST Completed 10/21/15 CULTURE OTHR SPECIMN AEROBIC Completed 12/10/15 X-ray of chest, PA and lateral views Active 10/08/15 SALBADOR LEONG/ CALEB Encounters Encounter Location Arrival/Admit Date Discharge/Depart Date Attending Provider Registered Referred [facility] 12/10/15 6:40pm JAROD ARITA D.O. Discharged [facility]ur[facility] 11/19/15 8:52am 12/13/15 3:07pm JAROD ARITA D.O. Discharged Recurring [facility] 10/21/15 9:58am 11/14/15 4:20pm JAROD ARITA D.O. Registered [facility] 10/08/15 1:06pm SALBADOR LEONG/ CALEB Discharged Recurring Filion 09/16/15 4:21pm 10/15/15 4:26pm JAROD ARITA D.O.
--- OUTSIDE RECORDS SUMMARY | 2017-03-31 15:30 | XMS REPORT ---
Author Author Beverley Salazar Organization [facility] Address [address] [place], [place] [id number] Care Team Providers Care Control Chemist Name Role Phone Beverley Salazar PCP Unavailable [...] AM COMPREHEN METABOLIC PANEL 05/03/2015 12:00 AM Medications Active Name Start Date Estimated Completion Date SIG Comments citalopram 20 mg oral tablet 04/12/2015 10/09/2015 take 0.5 tablet by oral route daily Naprosyn 500 mg oral tablet 07/01/2015 09/29/2015 take 1 tablet (500 mg) by oral route every 12 hours with food for 30 days Silvadene 1 % topical cream 08/16/2015 11/14/2015 apply to affected area(s) by topical route daily for 30 days Name Start Date Expiration Date SIG Comments ProAir HFA 90 mcg/actuation inhalation HFA aerosol inhaler 03/20/20152015 inhale 1 - 2 puffs (90 - 180 mcg) by inhalation route every 4-6 hours as needed clindamycin HCl 300 mg oral capsule 04/09/2015 [...] Name Start Date Discontinued Date SIG Comments buspirone 10 mg oral tablet 04/12/2015 07/01/2015 take 0.5 tablet by oral route 2 times a day as needed for 30 days Problem List Description Status Onset Hydrocephalus Active 05/03/2015 Headache Active 05/03/2015 Venous ulcer Active 05/03/2015 Vital Signs Date Time BP-Sys(mm[Hg] BP-Ashly(mm[Hg]) HR(bpm) RR(rpm) Temp WT HT HC BMI BSA BMI Percentile O2 Sat(%) 08/16/2015 3:47:00 PM 110 mmHg 80 mmHg [...] 07/01/2015 12:00 AM Physical Therapy Consult Returned Results Summary Not available. History Of Immunizations Not available. History of Past Illness Name Date of Onset Comments Anemia Asthma Insomnia Seizure Sleep apnea with hypersomnolence 10/16/[address] [facility] found severe obstructive sleep apnea, CPAP at 15cm water pressure ordered through [employer], Insurance refusing to pay for CPAP but [...] Decubitus skin ulcer Aug 16 2015 3:52PM Payers Insurance Name Company Name Plan Name Plan Number Policy Number Policy Group Number Start Date Medicare Part B Medicare Of [place] [id number] N/A [employer] [place] [employer] [place] Plan [id number] N/A History of Encounters Visit Date Visit Type Provider 08/16/2015 Office visit Beverley Salazar APRN 07/25/2015 [...]
--- OUTSIDE RECORDS SUMMARY | 2017-03-31 15:32 | XMS REPORT ---
Author Author Beverley Salazar Organization [facility] Address [address] [place] [id number] Care Team Providers Care Milk Processing Worker Name Role Phone Beverley Salazar PCP Unavailable [...] with hypersomnolence 10/16/2014 Sleep study done at [facility] found severe obstructive sleep apnea, CPAP at 15cm water pressure ordered through [place], Insurance refusing to pay for CPAP but [...] Date Medicare Part B Medicare Of [place] [id number] N/A [employer] [place] State Plan [employer] [place] State Plan [id number] N/A History of Encounters Visit Date Visit [...]
--- OUTSIDE RECORDS SUMMARY | 2017-03-31 15:32 | XMS REPORT ---
Author Author Beverley Salazar Organization [facility] Address [address] [place], [place] [address] Care Team Providers Care Athletic Trainer Name Role Phone Beverley Salazar PCP Unavailable Allergies and Adverse Reactions Name Reaction Notes Latex Plan of Treatment Not available. Medications Not available. Problem List Not available. Vital Signs Date Time BP-Sys(mm[Hg] BP-Ashly(mm[Hg]) HR(bpm) RR(rpm) Temp WT HT HC BMI BSA BMI Percentile O2 Sat(%) 11/20/2014 12:38:00 PM 148 mmHg 98 mmHg 92 bpm 10 rpm 265 lbs 62 in 48.47 kg/m2 2.29 m2 97 % 11/20/2014 11:46:00 AM 140 mmHg 98 mmHg 92 bpm 98.7 F 98 % Social History Name Description Comments Tobacco Former smoker quit in 2008 Alcohol about once a month or two months. Denies illicit substance abuse History of Procedures Not available. Results Summary Not available. History Of Immunizations Not available. History of Past Illness Name Date of Onset Comments Anemia Asthma Insomnia Seizure Sleep apnea Nov 20 2014 12:06PM Payers Insurance Name Company Name Plan Name Plan Number Policy Number Policy Group Number Start Date Medicare Part B Medicare Of [place] [id number] N/A [employer] [place] [employer] [place] [id number] N/A History of Encounters Visit Date Visit Type Provider 11/20/2014 Office visit Beverley Salazar DOCKING PILOT
--- OUTSIDE RECORDS SUMMARY | 2017-03-31 15:32 | XMS REPORT ---
Author Author Beverley Salazar Organization [facility] Address [address] [place], [place] [address] Care Team Providers Care Kindergarten Prep Teacher Name Role Phone Beverley Salazar PCP [...] with hypersomnolence 10/16/2014 Sleep study done at [facility] found severe obstructive sleep apnea, CPAP at 15cm water pressure ordered through [place] Spina Bifida With Hydrocephalus 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 Sleep apnea Nov 20 2014 12:06PM Paraplegia Nov 20 2014 12:06PM Spina bifida Nov 20 2014 12:06PM Payers Insurance Name Company Name Plan Name Plan Number Policy Number Policy Group Number Start Date Medicare Part B Medicare Of [place] [id number] N/A [employer] [place] [employer] [place] [id number] N/A History of Encounters Visit Date Visit Type Provider 11/20/2014 Office visit Beverley Salazar VOLUNTEER ASSISTANT
--- OUTSIDE RECORDS SUMMARY | 2017-03-31 15:33 | XMS REPORT ---
Author Author Beverley Salazar Organization [facility] Address [address] [place], [place] [address] Care Team Providers Care Auto Body Man Name Role Phone Beverley Salazar PCP Unavailable Beverley Salazar PreferredProvider Unavailable Allergies and Adverse Reactions Name Reaction Notes Latex No known drug allergy Plan of Treatment Planned Activity Comments Planned Date Planned Time Plan/Goal Flu vaccine 3 yrs & older V4 P-free Medicare 02/20/2015 12:00 AM US venous duplex scan extremity lower left 04/04/2015 12:00 AM XR ankle, 2 views 04/04/2015 12:00 AM XR knee, 3 views 04/04/2015 12:[address] HEAD W/WO CONTRAST 05/03/2015 12:00 AM CBC (automated hemogram and platelets, with automated complete differential) 05/03/2015 12:00 AM CMP 05/03/2015 12:00 AM Troponin 1 measurement 10/08/2015 12:00 AM CBC With Auto Differential 09/27/2015 12:00 AM CMP 09/27/2015 12:00 AM Lipid profile 09/27/2015 12:00 AM Hemoglobin A1C 09/27/2015 12:00 AM Thyroid stimulating hormone (TSH) 09/27/2015 12:00 AM URINALYSIS ROUTINE C&S IF IND 09/27/2015 12:00 AM Free thyroxine (FT4) measurement 09/27/2015 12:00 AM XR thoracolumbar spine, 2 standing views for scoliosis 01/23/2016 12:00 AM XR cervical spine, 2-3 views 03/13/2016 12:00 AM Epigastric burning and painHistory of [...] oral route once daily for 90 days lisinopril 5 mg oral tablet 03/06/2016 [...] daily before a meal for 30 days tizanidine 2 mg oral tablet 03/03/2016 [...] HC BMI BSA BMI Percentile O2 Sat(%) 03/25/2016 2:15:00 PM 140 mmHg 90 mmHg 103 bpm 18 rpm 98 F 97 % 03/13/2016 6:40:00 PM 150 mmHg 90 mmHg [...] AM OCCULT BLD FECES 1-3 TESTS Reviewed 03/17/2016 12:00 AM COMPLETE CBC W/AUTO DIFF WBC Returned 03/17/2016 12:00 AM COMPREHEN METABOLIC PANEL Returned 03/17/2016 12:00 AM LIPID PANEL Returned 03/13/2016 12:[address] HEAD/BRAIN W/O & W/DYE Returned 03/17/2016 12:00 AM URNLS DIP STICK/TABLET RGNT AUTO W/O MICROSCOPY Returned 03/25/2016 12:00 AM GLYCOSYLATED HEMOGLOBIN TEST Returned Results Summary Data and Description Results 11/30/2015 2:55 PM SGOT/AST 15.0 IU/LSGPT/ALT 23.0 IU/LALK PHOS 68.0 IU/LTOTAL PROTEIN 6.90 g/dLALBUMIN 4.20 g/dLTOTAL BILI 0.20 mg/dLDIRECT BILI 0.10 mg/ dLINDIRECT BILI 0.10 mg/dL History Of Immunizations Not available. History of Past Illness Name Date of Onset Comments Anemia Asthma Insomnia Seizure Sleep apnea with hypersomnolence 10/16/[address] [facility] found severe obstructive sleep apnea, CPAP at 15cm water pressure ordered through [employer], Insurance refusing to pay for CPAP but [...] 2016 6:43PM Paraplegia Mar 13 2016 6:43PM Hyperglycemia Mar 25 2016 2:17PM Payers Insurance Name Company Name Plan Name Plan Number Policy Number Policy Group Number Start Date Medicare Part A Medicare [facility] [id number] N/A [employer] - [facility] - [place] State Plan [facility] [place] State Plan [id number] N/A Medicare Part A Medicare - Lab/Xray [id number] N/A Medicare Part B Medicare Of [place] [id number] N/A [employer] [place] State Plan [employer] [place] State Plan [id number] N/A History of Encounters Visit Date Visit Type Provider 03/25/2016 Office visit Beverley Salazar WIRE WALKER 03/13/2016 Office visit Beverley Salazar WIRE WALKER 03/03/2016 Office visit Beverley Salazar WIRE WALKER 02/04/2016 Office visit Beverley Salazar WIRE WALKER 01/23/2016 Office visit Beverley Salazar WIRE WALKER 11/30/2015 Office visit Regina Blas WIRE WALKER 10/30/2015 Voided Beverley Salazar WIRE WALKER 10/25/2015 Office visit Beverley Salazar WIRE WALKER 10/08/2015 Office visit Regina Blas WIRE WALKER 09/27/2015 Office visit 09/27/2015 Office visit Beverley Salazar WIRE WALKER 08/16/2015 Office visit Beverley Salazar WIRE WALKER 07/25/2015 Office visit Beverley Salazar WIRE WALKER 07/01/2015 Office visit Beverley Salazar WIRE WALKER 05/03/2015 Office visit Regina Blas WIRE WALKER 04/12/2015 Office visit Beverley Salazar WIRE WALKER 04/09/2015 Office visit Regina Blas WIRE WALKER 04/04/2015 Office visit 04/04/2015 Office visit Beverley Salazar WIRE WALKER 03/20/2015 Office visit 03/20/2015 Office visit Beverley Salazar WIRE WALKER 02/20/2015 Office visit Beverley Salazar WIRE WALKER 11/20/2014 Office visit Beverley Salazar WIRE WALKER
--- NOTE | 2017-03-31 15:34 | ED General ---
General Chief Complaint: Abdominal/GI Problems Stated Complaint: DEC LOC Source of Information: Patient Exam Limitations: No Limitations History of Present Illness Time Seen by Provider: 14:07 Initial Comments This patient presents to the emergency room from the care home where he developed altered mental status, diaphoresis, and hypotension. He also complains of abdominal pain and headache. His abdominal pain is near a right lower abdominal hernia which is presently under workup. Symptoms started last night. 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 Patient denied any headache. Allergies and Home Medications Allergies Coded Allergies: latex (Verified Allergy, Unknown, 03/31/17) Constitutional: see HPI, diaphoresis, other (lethargic) EENTM: see HPI Respiratory: no symptoms reported Cardiovascular: see HPI Gastrointestinal: see HPI, diarrhea, nausea, vomiting Genitourinary: no symptoms reported Musculoskeletal: no symptoms reported Skin: no symptoms reported Psychiatric/Neurological: See HPI Hematologic/Lymphatic: No Symptoms Reported Past Tusawrj-Mctytb-Ykxoef Hx Surgeries History of Surgeries: Yes Surgeries: Brain Shunt Neurological History of Neurological Disord: Yes (spina bifida, STOCKROOM INVENTORY CLERK shunt) Gastrointestinal History of Gastrointestinal Di: Yes Gastrointestinal Disorders: Abdominal Hernia Endocrine History of Endocrine Disorders: No Physical Exam-Suspected Sepsis Physical Exam Vital Signs Vital Sign - Last 12Hours 03/31/17 13:52 Temp 96.3 Pulse 129 Resp 18 B/P (MAP) 71/55 Pulse Ox 96 O2 Delivery Nasal Cannula O2 Flow Rate 2.00 Capillary Refill : General Appearance: WD/WN, Moderate Distress, Other (Diaphoretic, lethargic) HEENT: PERRL/EOMI, Normal ENT Inspection, Pharynx Normal Neck: Normal Inspection Respiratory: Lungs Clear, Normal Breath Sounds, No Accessory Muscle Use, No Respiratory Distress Cardiovascular: No Edema, No Murmur, Tachycardia Gastrointestinal: Normal Bowel Sounds, Soft, Distended, Hernia, Tenderness ( Around the fairly large right lower quadrant hernia) Back: Normal Inspection Extremity: Normal Inspection, No Pedal Edema Neurologic/Psychiatric: Alert, Oriented x3, advertising agent II-XII Norm as Tested, Other ( Paraplegic at baseline) Skin: cool, diaphoresis, pallor Focused Exam Evaluation Lactate Level Laboratory Tests 03/31/17 14:18: Lactic Acid Level 3.80*H Lactic Acid Level Progress/Results/Core Measures Suspected Sepsis SIRS Temperature: Pulse: Respiratory Rate: Laboratory Tests 03/31/17 14:18: White Blood Count 29.9H Blood Pressure / Mean: Laboratory Tests 03/31/17 14:18: Lactic Acid Level 3.80*H Laboratory Tests 03/31/17 14:18: Platelet Count 520H 03/31/17 14:41: Creatinine 3.19H, INR Comment 1.1, Total Bilirubin 0.6 Results/Orders Lab Results My Orders Medications Given in ED Vital Signs/I&O Capillary Refill : Diagnostic Imaging Diagonstic Imaging: Xray Plain Films/CT/US/NM/MRI: chest Comments Chest x-ray viewed by me. Report reviewed. See report below: NAME: CHRISTEN CHRISTIANSON [facility] REC#: [id number] PT STATUS: REG ER : 1985 PHYSICIAN: SANIYA JEFF MD ADMIT DATE: 03/31/17/ER Draft Date of Exam:03/31/17 CHEST 1 VIEW, AP/PA ONLY INDICATION: Paraplegia with decreased level of consciousness and leukocytosis. TECHNIQUE: Semiupright portable view of the chest is obtained with comparison made to study of 02/12/2017. FINDINGS: There is mild cardiomegaly and pulmonary venous congestion. There is mild increased density throughout the lungs which may be due to mild diffuse edema or possible pneumonitis. No consolidation is seen. Left ventriculoperitoneal shunt tube is noted. There appears to be dense calcification at the level of the left common carotid artery. IMPRESSION: Mild diffuse edema and/or pneumonitis in the lungs without focal consolidation or pneumothorax detected. Dictated on workstation # [id number] Dict: 03/31/17 1522 Trans: 03/31/17 1527 [id number] Interpreted by: CHRISTEN CRONIN MD Critical Care Note Critical Care Start Time: 14:15 Stop Time: 16:27 Progress 15:35 - Patient presented hypotensive and in presumed septic shock. Source of infection has not yet been determined although pneumonitis is noted on chest x- ray and may be source of infection. Urine was also scant and cloudy on placement of the Goncalves catheter. He has received almost 2 L of normal saline in boluses and is still hypotensive. If hypotension continues after completion of 2 L Levophed will be started. Patient has 2 good peripheral IVs. The IV in the right AC should be adequate for temporary use of Levophed. Zosyn has been ordered for initial antibiotic therapy. There are no ICU beds available at this facility. That information became available during the course of initial workup. Arrangements have been made for transfer to [facility] to Dr. Hansen who accepts the patient. Clarence was initially contacted at 15: 21. Attempt to place a central line at the left subclavian was performed by SUSHANT Esteves. This was unsuccessful. Transfer will not be delayed to place a central line as the IV lines are working adequately at this time. 15:49 - Kaylah is in route to transfer patient to [facility]. Patient is now has boluses 3 and 4 of normal saline running. Systolic blood pressure is now 96 and patient is much more alert. Patient clarifies that he was to have more test performed tomorrow to evaluate his abdominal hernia. 16:27 -Blood pressure was resuscitated after 3 L of IV fluids. He has had approximately 3.5 L of normal saline bolused at this point. His last systolic blood pressure was 88. Kaylah is here for transport. They were advised to start levo fed if still hypertensive in route. Departure Impression Impression: Primary Impression: Septic shock Additional Impressions: Acute renal failure Qualified Codes: N17.9 - Acute kidney failure, unspecified Nausea vomiting and diarrhea Disposition: 02 XFER T-[facility] Condition: Critical Transfer Time Spoke to Accepting Phy: 15:21 Transfer Time: 16:29 Method of Transfer: Air Departure-Patient Inst. Referrals: MIRIAM SIERRA MD (PCP/Family) Primary Care Physician Copy Copies To 1: MIRIAM SIERRA MD, JOSHUA T MD Mar 31, 2017 15:34
[2017-03-31 15:35] VITALS: BP 96/50
--- OUTSIDE RECORDS SUMMARY | 2017-03-31 15:36 | XMS REPORT ---
Author Author Beverley Salazar Organization [facility] Address [address] [place], [place] [id number] Care Team Providers Care Operations Expert Name Role Phone Beverley Salazar PCP Unavailable [...] Start Date Estimated Completion Date SIG Comments clindamycin HCl 300 mg oral capsule 04/09/2015 Take one capsule three times day for the next 10 days. citalopram 20 mg oral tablet 04/12/2015 10/09/2015 take 0.5 tablet by oral route daily Naprosyn 500 mg oral tablet 07/01/2015 09/29/2015 take 1 tablet (500 mg) by oral route every 12 hours with food for 30 days Bactroban 2 % topical ointment 07/25/2015 08/24/2015 apply a small amount to the affected area by topical route 3 times per day for 10 days sulfamethoxazole-trimethoprim 800-160 mg oral tablet 07/25/2015 08/04/2015 take 1 tablet by oral route every 12 hours for 10 days Name Start Date Expiration Date SIG Comments ProAir HFA 90 mcg/actuation inhalation HFA aerosol inhaler 03/20/20152015 inhale 1 - 2 puffs (90 - 180 mcg) by inhalation route every 4-6 hours as needed Discontinued Name Start Date Discontinued Date SIG Comments buspirone 10 mg oral tablet 04/12/2015 07/01/2015 take 0.5 tablet by oral route 2 times a day as needed for 30 days Problem List Description Status Onset Hydrocephalus Active 05/03/2015 Headache Active 05/03/2015 Venous ulcer Active 05/03/2015 Vital Signs Date Time BP-Sys(mm[Hg] BP-Ashly(mm[Hg]) HR(bpm) RR(rpm) Temp WT HT HC BMI BSA BMI Percentile O2 Sat(%) 07/25/2015 3:00:00 PM 139 mmHg 94 mmHg [...] 10/16/2014 Sleep study done at [facility] found severe obstructive sleep apnea, CPAP at 15cm water pressure ordered through [employer], Insurance refusing to pay for CPAP but [...] of 50.0-59.9, adult Jul 25 2015 3:01PM Payers Insurance Name Company Name Plan Name Plan Number Policy Number Policy Group Number Start Date Medicare Part B Medicare Of [place] [id number] N/A [employer] [place] [employer] [place] [id number] N/A History of Encounters Visit Date Visit Type Provider 07/25/2015 Office visit Beverley Salazar APRN 07/01/2015 Office visit Bveerley Salazar APRN 05/03/2015 Office visit Regina Blas APRN 04/12/2015 Office visit Beverley Salazar APRN 04/09/2015 Office visit Regina Blas APRN 04/04/2015 Office visit 04/04/2015 Office visit Beverley Salazar APRN 03/20/2015 Office visit 03/20/2015 Office visit Beverley Salazar APRN 02/20/2015 Office visit Beverley Salazar APRN 11/20/2014 Office visit Beverley Salazar APRN
--- OUTSIDE RECORDS SUMMARY | 2017-03-31 15:36 | XMS REPORT | Continuity of Care Document ---
Author Author [facility] Organization [facility] Address [facility] [address] [place] [address] Phone Unavailable Support Name Relationship Address Phone SALBADOR LEONG BILLY/CALEB Caregiver [address] [place] [address] SONAM QUINTERO M.D. Caregiver [address] [place] [address] JORDAN JUAREZ Next Of Kin [address] [place] [address] Insurance Providers Payer Name Policy Number Subscriber Name Relationship Medicare [id number] Lavell Smiht 18 Self / Same As [facility] [id number] Lavell Smith 18 Self / Same As Patient Advance Directives Directive Response Recorded Date/Time Do you have an Advanced Directive? No 08/04/07 9:59pm Advance Directives No 08/10/15 1:30am Living Will No 08/10/15 1:30am Health Care Proxy No 10/08/15 1:05pm Power of Manpower Development Manager for Health Care No 08/10/15 1:30am Organ, [...] Tetanus Toxoid Vaccination Yes Historical Vital Signs Acute Vital Signs Vital Response Date/Time Temperature (Fahrenheit) 96.9 degrees F (97.6 - 99.5) 08/14/2015 2:03pm Temperature Source Temporal Artery 08/14/2015 2:03pm Pulse Rate (adult) 84 bpm (60 - 90) 08/14/2015 2:03pm Respiratory Rate 20 bpm (12 - 24) 08/14/2015 2:03pm Blood Pressure 154/90 mm Hg 08/14/2015 2:03pm O2 Sat by Pulse Oximetry 95 % (90 - 100) 08/14/2015 2:03pm Oxygen Delivery Method 08/10/2015 12:40am Pain Intensity 2 08/12/2015 12:26am Pain Location Body Site Modifier 08/11/2015 9:01pm Pain Description 08/11/2015 9:01pm Results Laboratory Results Test Name Result Units Flags Reference Collection Date/Time Result Date/ Time Comments White Blood Count 7.3 K/uL 4.8-10.8 08/13/2015 5:4508/13/2015 10: 10am Red Blood Count 4.56 M/uL L 4.70-6.10 08/13/2015 5:4508/13/2015 10: 10am Hemoglobin 11.9 gm/dL L 14.0-18.0 08/13/2015 5:4508/13/2015 10:10am Hematocrit 38.5 % L 42.0-52.0 08/13/2015 5:4508/13/2015 10:10am Mean Corpuscular Volume 84.4 fL # 80.0-96.1 08/13/2015 5:4508/13/2015 10:10am Mean Corpuscular Hemoglobin 26.0 pg L 27.0-31.0 08/13/2015 5:452015 10:10am Mean Corpuscular Hemoglobin Concent 31.0 g/dL 30.0-37.0 08/13/2015 5: 4508/13/2015 10:10am Red Cell Distribution Width 13.7 % 11.5-14.5 08/13/2015 5:2015 10:10am Platelet Count 374 K/uL 130-400 08/13/2015 5:4508/13/2015 10:10am Mean Platelet Volume 7.2 fL L 7.4-10.4 08/13/2015 5:08/13/2015 10: 10am Neutrophils (%) (Auto) 61.4 % 42.2-75.2 08/13/2015 5:4508/13/2015 10 :10am Lymphocytes (%) (Auto) 27.0 % 20.5-51.1 08/13/2015 5:08/13/2015 10 :10am Monocytes (%) (Auto) 8.7 % 1.7-9.3 08/13/2015 5:4508/13/2015 10: 10am Eosinophils (%) (Auto) 2.1 % 0-3 08/13/2015 5:4508/13/2015 10:10am Basophils (%) (Auto) 0.7 % 0.0-1.0 08/13/2015 5:4508/13/2015 10: 10am Neutrophils # (Auto) 4.5 K/uL 2.0-6.9 08/13/2015 5:4508/13/2015 10: 10am Lymphocytes # (Auto) 2.0 K/uL 1.2-3.4 08/13/2015 5:4508/13/2015 10: 10am Monocytes # (Auto) 0.6 K/uL 0.1-0.6 08/13/2015 5:4508/13/2015 10: 10am Eosinophils # (Auto) 0.2 K/uL 0.0-0.7 08/13/2015 5:4508/13/2015 10: 10am Basophils # (Auto) 0.1 K/uL 0.0-0.2 08/13/2015 5:4508/13/2015 10: 10am Random Glucose 96 mg/dL 70-110 08/13/2015 5:4508/13/2015 7:32am Blood Urea Nitrogen 10 mg/dL 7-18 08/13/2015 5:4508/13/2015 7:32am Creatinine 0.8 mg/dL 0.70-1.30 08/13/2015 5:4508/13/2015 7:32am Sodium Level 138 mEq/L 136-145 08/13/2015 5:4508/13/2015 7:32am Potassium Level 4.6 mEq/L 3.5-5.0 08/13/2015 5:4508/13/2015 7:32am Chloride Level 101 mEq/L 98-107 08/13/2015 5:4508/13/2015 7:32am Carbon Dioxide Level 25.9 mEq/L 21-32 08/13/2015 5:4508/13/2015 7: 32am Calcium Level 9.1 mg/dL 8.8-10.5 08/13/2015 5:4508/13/2015 7:32am Total Protein 7.7 gm/dL 6.4-8.2 08/13/2015 5:4508/13/2015 7:32am Albumin 2.5 gm/dL L 3.4-5.0 08/13/2015 5:45am 08/13/2015 7:32am Total Bilirubin 0.14 mg/dL 0.00-1.00 08/13/2015 5:45am 08/13/2015 7: 32am Aspartate Amino Transf (AST/SGOT) 16 U/L 15-37 08/13/2015 5:45am 2015 7:32am Alanine Aminotransferase (ALT/SGPT) 18 U/L 12-78 08/13/2015 5:45am 7:32am Total Alkaline Phosphatase 61 U/L 46-116 08/13/2015 5:45am 08/13/2015 7 :32am Glomerular Filtration Rate Calc 123.2 mL/min 08/13/2015 5:45am 2015 7:32am Pending Laboratory Results Test Name Collection Date/Time Microbiology Results Procedure Source Result Collection Date/Time Result Date/Time Blood Culture Blood NO GROWTH AFTER 5 DAYS 08/09/2015 11:20pm 08/14/2015 11:28pm Blood Culture Blood NO GROWTH AFTER 5 DAYS 08/09/2015 11:28pm 08/14/2015 11:28pm Wound Culture Foot, Right ENTEROBACTER CLOACAE 08/09/2015 11:00pm 2015 7:02am Pending Microbiology Results Procedure Source Collection Date/Time Procedures Procedure Status Date Provider(s) EXCISION OF R LOW LEG SUBCU/FASCIA, OPEN APPROACH Completed 08/12/15 Narinder Vergara M.D., Baba M.D. DRAKE SUBQ TISSUE 20 SQ CM/< Completed 08/20/15 DRAKE SUBQ TISSUE 20 SQ CM/< Completed 08/20/15 DRAKE SUBQ TISSUE 20 SQ CM/< Completed 08/20/15 DRAKE SUBQ TISSUE 20 SQ CM/< Completed 08/20/15 DRAKE SUBQ TISSUE ADD-ON Completed 08/20/15 DRAKE SUBQ TISSUE ADD-ON Completed 08/20/15 DRAKE SUBQ TISSUE ADD-ON Completed 08/20/15 DRAKE SUBQ TISSUE ADD-ON Completed 08/20/15 CULTURE OTHR SPECIMN AEROBIC Completed 08/20/15 CULTURE AEROBIC IDENTIFY Completed 08/20/15 MICROBE SUSCEPTIBLE TANESHA Completed 08/20/15 OFFICE/OUTPATIENT VISIT EST Completed 08/20/15 X-ray of chest, PA and lateral views Active 10/08/15 SALBADOR LEONG/ CALEB Encounters Encounter Location Arrival/Admit Date Discharge/Depart Date Attending Provider Registered [facility] 10/08/15 1:06pm SALBADOR LEONG/ CALEB Discharged [facility] 09/16/15 4:21pm 10/15/15 4:26pm JAROD ARITA D.O. Discharged Rec[facility] 08/20/15 1:02pm 09/13/15 6:00pm JAROD ARITA D.O. Discharged Inpatient [facility] 08/10/15 12:27am 08/14/15 5:00pm ANDERSON BENEDICT MD
--- OUTSIDE RECORDS SUMMARY | 2017-03-31 15:38 | XMS REPORT ---
Author Regina Gatica [facility] Address [address] [place], [place] [id number] Care Team Providers Care Senior Clinical Project Manager Name Role Phone Regina Blas PCP Unavailable [...] times day for the next 10 days. buspirone 10 mg oral tablet 04/12/2015 06/11/2015 take 0.5 tablet by oral route 2 times a day as needed for 30 days citalopram 20 mg oral tablet 04/12/2015 10/09/2015 take 0.5 tablet by oral route daily Problem List Description Status Onset Hydrocephalus Active 05/03/2015 Headache Active 05/03/2015 Venous ulcer Active 05/03/2015 Vital Signs Date Time BP-Sys(mm[Hg] BP-Ashly(mm[Hg]) HR(bpm) RR(rpm) Temp WT HT HC BMI BSA BMI Percentile O2 Sat(%) 05/03/2015 3:03:00 PM 134 mmHg 70 mmHg [...] Ordered Description Order Status 02/20/2015 12:00 AM Physical Therapy Consultation Returned 02/20/2015 12:00 AM COMPLETE CBC W/AUTO DIFF WBC Returned 02/20/2015 12:00 AM COMPREHEN METABOLIC PANEL Returned 02/20/2015 12:00 AM LIPID PANEL Returned 03/20/2015 12:00 AM CHEST X-RAY 2VW FRONTAL&LATL Returned 04/09/2015 12:00 AM CULTURE OTHR SPECIMN AEROBIC Returned Results Summary Not available. History Of Immunizations Not available. History of Past Illness Name Date of Onset Comments Anemia Asthma Insomnia Seizure Sleep apnea with hypersomnolence 10/16/2014 Sleep study done at [facility] found severe obstructive sleep apnea, CPAP at 15cm water pressure ordered through [employer], Insurance refusing to pay for CPAP but [...] 3:08PM Venous ulcer May 03 2015 3:08PM Payers Insurance Name Company Name Plan Name Plan Number Policy Number Policy Group Number Start Date Medicare Part B Medicare Of [place] [id number] N/A [employer] [place] [employer] [place] [id number] N/A History of Encounters Visit Date Visit Type Provider 05/03/2015 Office visit Regina Blas APRN 04/12/2015 Office visit Beverley Salazar APRN 04/09/2015 Office visit Regina Blas APRN 04/04/2015 Office visit Beverley Salazar APRN 03/20/2015 Office visit Beverley Salazar APRN 02/20/2015 Office visit Beverley Salazar APRN 11/20/2014 Office visit Beverley Salazar APRN
--- OUTSIDE RECORDS SUMMARY | 2017-03-31 15:38 | XMS REPORT ---
Author Author Beverley Salazar Organization [facility] Address [address] [place], [place] [address] Care Team Providers Care Ticket Dispenser Changer Name Role Phone Beverley Salazar PCP Unavailable Allergies and Adverse Reactions Name Reaction Notes Latex Plan of Treatment Planned Activity Comments Planned Date Planned Time Plan/Goal FLU VAC NO PRSV 4 PEREZ 3 YRS+ 02/20/2015 12:00 AM CHEST X-RAY 2VW FRONTAL&LATL 03/20/2015 12:00 AM Medications Active Name Start Date Estimated Completion Date SIG Comments ProAir HFA 90 mcg/actuation inhalation HFA aerosol inhaler 03/20/20152015 inhale 1 - 2 puffs (90 - 180 mcg) by inhalation route every 4-6 hours as needed Problem List Not available. Vital Signs Date [...] with hypersomnolence 10/16/2014 Sleep study done at [facility] found severe obstructive sleep apnea, CPAP at 15cm water pressure ordered through [employer], Insurance refusing to pay for CPAP but [...] 2015 2:16PM Costochondritis Mar 20 2015 2:16PM Payers Insurance Name Company Name Plan Name Plan Number Policy Number Policy Group Number Start Date Medicare Part B Medicare Of [place] [id number] N/A [employer] [place] [employer] [place] [id number] N/A History of Encounters Visit Date Visit Type Provider 03/20/2015 Office visit Beverley Salazar APRN 02/20/2015 Office visit Beverley Salazar APRN 11/20/2014 Office visit Beverley Salazar APRN
--- OUTSIDE RECORDS SUMMARY | 2017-03-31 15:40 | XMS REPORT ---
Author Author Beverley Salazar Organization [facility] Address [address] [place], [place] [address] Care Team Providers Care Contracting Support Specialist Name Role Phone Beverley Salazar PCP [...] 30 days omeprazole 20 mg oral capsule,delayed release(/EC) 10/08/2015 02/05/2016 take 1 capsule (20 mg) by oral route once daily before a meal for 30 days docusate sodium 100 mg oral capsule 11/27/2015 11/21/2016 take 1 capsule (100 mg) by oral route 2 times per day for 90 days Metamucil oral powder 11/27/2015 11/21/2016 use as directed 1 scoop in liquid of choice by oral route qd Probiotic OTC as recommended by pharmacist 11/27/2015 11/21/2016 use daily Name Start Date Expiration Date SIG Comments [...] by topical route daily for 30 days Discontinued Name Start Date [...] with hypersomnolence 10/16/2014 Sleep study done at [facility] found severe obstructive sleep apnea, CPAP at 15cm water pressure ordered through [employer], Insurance refusing to pay for CPAP but [...] 2015 2:47PM Constipation Nov 27 2015 10:34PM Payers Insurance Name Company Name Plan Name Plan Number Policy Number Policy Group Number Start Date Medicare Part B Medicare Of [place] [id number] N/A [employer] [place] [employer] [place] State Plan [id number] N/A History of Encounters Visit Date Visit [...]
--- OUTSIDE RECORDS SUMMARY | 2017-03-31 15:40 | XMS REPORT ---
Author Regina Gatica Organization [facility] Address [address] [place], [place] [id number] Care Team Providers Care Counseling Case Manager Name Role Phone Regina Blas PCP [...] AM COMPREHEN METABOLIC PANEL 05/03/2015 12:00 AM COMPLETE CBC W/AUTO DIFF WBC 09/27/2015 12:00 AM COMPREHEN METABOLIC PANEL 09/27/2015 12:00 AM LIPID PANEL 09/27/2015 12:00 AM GLYCOSYLATED HEMOGLOBIN TEST 09/27/2015 12:00 AM ASSAY THYROID STIM HORMONE 09/27/2015 12:00 AM URINALYSIS AUTO W/O SCOPE 09/27/2015 12:00 AM ASSAY OF FREE THYROXINE 09/27/2015 12:00 AM CHEST X-RAY 2VW FRONTAL&LATL 10/08/2015 12:00 AM COMPLETE CBC W/AUTO DIFF WBC 10/08/2015 12:00 AM COMPREHEN METABOLIC PANEL 10/08/2015 12:00 AM ASSAY OF TROPONIN QUANT 10/08/2015 12:00 AM Epigastric burning and painHistory of [...] HC BMI BSA BMI Percentile O2 Sat(%) 10/08/2015 10:59:00 AM 142 mmHg 82 mmHg [...] Returned 10/08/2015 12:00 AM ELECTROCARDIOGRAM COMPLETE Returned Results Summary Not available. History Of Immunizations Not available. History of Past Illness Name Date of Onset Comments Anemia Asthma Insomnia Seizure Sleep apnea with hypersomnolence 10/16/2014 Sleep study done at [facility] found severe obstructive sleep apnea, CPAP at 15cm water pressure ordered through [employer], Insurance refusing to pay for CPAP but [...] 2015 11:02AM Hydrocephalus Oct 08 2015 11:02AM Payers Insurance Name Company Name Plan Name Plan Number Policy Number Policy Group Number Start Date Medicare Part B Medicare Of [place] [id number] N/A [employer] [place] State Plan Amer[employer] [place] State Plan [id number] N/A History of Encounters Visit Date Visit Type Provider 10/08/2015 Office visit Regina Blas APRN 09/27/2015 [...]
--- OUTSIDE RECORDS SUMMARY | 2017-03-31 15:41 | XMS REPORT ---
Author Regina Gatica [facility] Address [address] [place] [id number] Care Team Providers Care Mysql Database Developer Name Role Phone Regina Blas PCP Unavailable [...] topical bandage apply bandage to affected area(s) omeprazole 20 mg oral capsule,delayed release(DR/EC) 10/08/2015 [...] oral route once daily for 90 days Name Start Date Expiration Date SIG [...] HC BMI BSA BMI Percentile O2 Sat(%) 11/30/2015 3:11:00 PM 107 bpm 20 rpm [...] with hypersomnolence 10/16/2014 Sleep study done at [facility] found severe obstructive sleep apnea, CPAP at 15cm water pressure ordered through [employer], Insurance refusing to pay for CPAP but [...] 2015 9:10PM Paraplegia Dec 26 2015 9:10PM Payers Insurance Name Company Name Plan Name Plan Number Policy Number Policy Group Number Start Date Medicare Part B Medicare Of [place] [id number] N/A [employer] [place] State [place] [employer] [place] State Plan [id number] N/A History of Encounters Visit Date Visit Type Provider 11/30/2015 Office visit Regina Blas MILK DRIVER 10/30/2015 Voided Beverley Salazar MILK DRIVER 10/25/2015 Office visit Beverley Salazar MILK DRIVER 10/08/2015 Office visit Regina Wan MILK DRIVER 09/27/2015 Office visit 09/27/2015 Office visit Beverley Salazar MILK DRIVER 08/16/2015 Office visit Beverley Salazar MILK DRIVER 07/25/2015 Office visit Beverley Salazar MILK DRIVER 07/01/2015 Office visit Beverley Salazar MILK DRIVER 05/03/2015 Office visit Regina Wan MILK DRIVER 04/12/2015 Office visit Beverley Salazar MILK DRIVER 04/09/2015 Office visit Regina Wan MILK DRIVER 04/04/2015 Office visit 04/04/2015 Office visit Beverley Salazar MILK DRIVER 03/20/2015 Office visit 03/20/2015 Office visit Beverley Salazar MILK DRIVER 02/20/2015 Office visit Beverley Salazar MILK DRIVER 11/20/2014 Office visit Beverley Salazar MILK DRIVER
--- OUTSIDE RECORDS SUMMARY | 2017-03-31 15:41 | XMS REPORT | Continuity of Care Document ---
Author Author [facility] Organization [facility] Address [facility] [address] [place] [address] Phone Unavailable Support Name Relationship Address Phone SONAM QUINTERO M.D. Caregiver [address] [place], [place] [address] JAROD ARITA D.O. Caregiver [address] [facility] [address] [place] [address] JORDAN JUAREZ Next Of Kin [address] [place] [address] Insurance Providers Payer Name Policy Number Subscriber Name Relationship Medicare [id number] Lavell Smith 18 Self / Same As Patient [employer] [id number] Lavell Smith 18 Self / Same As Patient Advance Directives Directive Response Recorded Date/Time Do you have an Advanced Directive? No 08/04/07 9:59pm Advance Directives No 08/10/15 1:30am Living Will No 08/10/15 1:30am Health Care Proxy No 08/20/15 12:59pm Power of Cnc Operator Programmer for Health Care No 08/10/15 1:30am Organ, [...] Current every day smoker Hospital Discharge Instructions No hospital discharge instructions. Plan of Care Prescriptions See Medication Section Functional Status No functional status results. Allergies, [...] Calc 123.2 mL/min 08/13/2015 5:45am 2015 7:32am Microbiology Results Procedure Source Result Collection Date/Time [...] Completed 08/12/15 Narinder Vergara M.D., Baba M.D. Encounters Encounter Location Arrival/Admit Date Discharge/Depart Date Attending Provider Discharged [place]ring [place] 08/20/15 1:02pm 09/13/15 6:00pm JAROD ARITA D.O. Discharged Inpatient [place] 08/10/15 12:27am 08/14/15 5:00pm ANDERSON BENEDICT MD
--- OUTSIDE RECORDS SUMMARY | 2017-03-31 15:42 | XMS REPORT ---
Author Regina Gatica Organization [facility] Address [address] [place], [place] [phone] Care Team Providers Care Trim Master Operator Name Role Phone Regina Blas PCP Unavailable [...] ASSAY OF FREE THYROXINE 09/27/2015 12:00 AM HEPATIC FUNCTION PANEL 11/30/2015 12:00 AM OCCULT BLD FECES 1-3 TESTS 11/30/2015 12:00 AM Epigastric burning and painHistory of [...] hypersomnolence 10/16/2014 Sleep study done at [facility] found severe obstructive sleep apnea, CPAP at 15cm water pressure ordered through [employer], Insurance refusing to pay for CPAP but [...] 2015 3:12PM Hemorrhoid Nov 30 2015 3:12PM Payers Insurance Name Company Name Plan Name Plan Number Policy Number Policy Group Number Start Date Medicare Part B Medicare Of [place] [id number] N/A [employer] [place] [employer] [place] [id number] N/A History of Encounters Visit Date Visit Type Provider 11/30/2015 Office visit Regina Blas APRN 10/30/2015 Office visit Beverley Salazar RADIO FREQUENCY TECHNICIAN 10/25/2015 Office visit Beverley Salazar RADIO FREQUENCY TECHNICIAN 10/08/2015 Office visit Regina Blas RADIO FREQUENCY TECHNICIAN 09/27/2015 Office visit 09/27/2015 Office visit Beverley Salazar RADIO FREQUENCY TECHNICIAN 08/16/2015 Office visit Beverley Salazar RADIO FREQUENCY TECHNICIAN 07/25/2015 Office visit Beverley Salazar APRN 07/01/2015 Office visit Beverley Salazar RADIO FREQUENCY TECHNICIAN 05/03/2015 Office visit Regina Blas RADIO FREQUENCY TECHNICIAN 04/12/2015 Office visit Beverley Salazar RADIO FREQUENCY TECHNICIAN 04/09/2015 Office visit Regina Blas RADIO FREQUENCY TECHNICIAN 04/04/2015 Office visit 04/04/2015 Office visit Beverley Salazar APRN 03/20/2015 Office visit 03/20/2015 Office visit Beverley Salazar APRN 02/20/2015 Office visit Beverley Salazar APRN 11/20/2014 Office visit Beverley Salazar APRN
--- OUTSIDE RECORDS SUMMARY | 2017-03-31 15:42 | XMS REPORT ---
Author Regina Gatica [facility] Address [address] [place], [place] [phone] Care Team Providers Care Career And Guidance Counselor Name Role Phone Regina Blas PCP Unavailable Allergies and Adverse Reactions Name Reaction Notes Latex Plan of Treatment Planned Activity Comments Planned Date Planned Time Plan/Goal FLU VAC NO PRSV 4 PEREZ 3 YRS+ 02/20/2015 12:00 AM EXTREMITY STUDY 04/04/2015 12:00 AM X-RAY EXAM OF ANKLE 04/04/2015 12:00 AM X-RAY EXAM OF KNEE 3 04/04/2015 12:00 AM CULTURE OTHR SPECIMN AEROBIC 04/09/2015 12:00 AM Medications Active Name Start Date [...] with hypersomnolence 10/16/2014 Sleep study done at [facility] found severe obstructive sleep apnea, CPAP at 15cm water pressure ordered through [employer], Insurance refusing to pay for CPAP but [...] Date Medicare Part B Medicare Of [place] [id number] N/A [employer] [place] State Plan Amer[employer] [place] State Plan [id number] N/A History of Encounters Visit Date Visit Type Provider 04/09/2015 Office visit Regina Blas PHYSICAL THERAPY SUPERVISOR 04/04/2015 Office visit Beverley Salazar PHYSICAL THERAPY SUPERVISOR 03/20/2015 Office visit Beverley Salazar PHYSICAL THERAPY SUPERVISOR 02/20/2015 Office visit Beverley Salazar PHYSICAL THERAPY SUPERVISOR 11/20/2014 Office visit Beverley Salazar PHYSICAL THERAPY SUPERVISOR
--- OUTSIDE RECORDS SUMMARY | 2017-03-31 15:44 | XMS REPORT ---
Author Author Beverley Salazar Organization [facility] Address [address] [place] [id number] Care Team Providers Care Swimming Pool Installer Name Role Phone Beverley Salazar PCP Unavailable [...] with hypersomnolence 10/16/2014 Sleep study done at [facility] found severe obstructive sleep apnea, CPAP at 15cm water pressure ordered through [employer], Insurance refusing to pay for CPAP but [...] Date Medicare Part B Medicare Of [place] [id number] N/A [employer] [place] [employer] [place] [id number] N/A History of Encounters Visit Date Visit [...]
--- OUTSIDE RECORDS SUMMARY | 2017-03-31 15:44 | XMS REPORT ---
Author Author Beverley Salazar Organization [facility] Address [address] [place], [place] [address] Care Team Providers Care Line Mechanic Name Role Phone Beverley Salazar PCP Unavailable [...] tablet by oral route daily Problem List Not available. Vital Signs Date Time BP-Sys(mm[Hg] BP-Ashly(mm[Hg]) HR(bpm) RR(rpm) Temp WT HT HC BMI BSA BMI Percentile O2 Sat(%) 04/12/2015 1:18:00 PM 136 mmHg 78 mmHg [...] hypersomnolence 10/16/2014 Sleep study done at [facility] found severe obstructive sleep apnea, CPAP at 15cm water pressure ordered through [employer], Insurance refusing to pay for CPAP but [...] 2015 1:37PM Anxiety Apr 12 2015 1:24PM Payers Insurance Name Company Name Plan Name Plan Number Policy Number Policy Group Number Start Date Medicare Part B Medicare Of [place] [id number] N/A [employer] [place] [employer] [place] [id number] N/A History of Encounters Visit Date Visit Type Provider 04/12/2015 Office visit Beverley Salazar APRN 04/09/2015 Office visit Regina Blas APRN 04/04/2015 Office visit Beverley Salazar APRN 03/20/2015 Office visit Beverley Salazar APRN 02/20/2015 Office visit Beverley Salazar APRN 11/20/2014 Office visit Beverley Salazar APRN
--- OUTSIDE RECORDS SUMMARY | 2017-03-31 15:45 | XMS REPORT | Continuity of Care Document ---
Author Author [facility] Organization [facility] Address [facility] [address] [place] [address] Phone Unavailable Support Name Relationship Address Phone INGRID SONAM ALICIA M.D. Caregiver [address] [place] [address] JAROD ARITA D.O. Caregiver [address] [facility] [address] [place] [address] JORDAN JUAREZ Next Of Kin [address] [place], [place] [address] Insurance Providers Payer Name Policy Number Subscriber Name Relationship Medicare [id number] Lavell Smith 18 Self / Same As Patient [facility] [id number] Lavell Smith 18 Self / Same As Patient Advance Directives Directive Response Recorded Date/Time Do you have an Advanced Directive? No 08/04/07 9:59pm Advance Directives No 08/10/15 1:30am Living Will No 08/10/15 1:30am Health Care Proxy No 10/21/15 9:57am Power of Mat Maker for Health Care No 08/10/15 1:30am Organ, [...] Procedure Source Result Collection Date/Time Result Date/Time Wound Culture Leg, Right PSEUDOMONAS AERUGINOSA 08/20/2015 UNK 08/22/2015 7 :19am Procedures Procedure Status Date Provider(s) DRAKE SUBQ [...] Completed 08/20/15 OFFICE/OUTPATIENT VISIT EST Completed 08/20/15 DRAKE SUBQ TISSUE 20 SQ CM/< Completed 09/16/15 DRAKE SUBQ TISSUE 20 SQ CM/< Completed 09/16/15 DRAKE SUBQ TISSUE 20 SQ CM/< Completed 09/16/15 DRAKE SUBQ TISSUE 20 SQ CM/< Completed 09/16/15 DRAKE SUBQ TISSUE ADD-ON Completed 09/16/15 X-ray of chest, PA and lateral views Active 10/08/15 SALBADOR LEONG/ CALEB Encounters Encounter Location Arrival/Admit Date Discharge/Depart Date Attending Provider Discharged Recurring [place] 10/21/15 9:58am 11/14/15 4:20pm JAROD ARITA D.O. Registered [facility] 10/08/15 1:06pm SALBADOR LEONG/ CALEB Discharged Recurring [place] 09/16/15 4:21pm 10/15/15 4:26pm JAROD ARITA D.O. Discharged Rec[facility]ring [place] 08/20/15 1:02pm 09/13/15 6:00pm JAROD ARITA D.O.
--- OUTSIDE RECORDS SUMMARY | 2017-03-31 15:45 | XMS REPORT ---
Author Author Beverley Salazar Organization [facility] Address [address] [place], [place] [address] Care Team Providers Care Perinatal Breastfeeding Assistant Name Role Phone Beverley Salazar PCP Unavailable [...] 12 hours with food for 30 days Name Start Date Expiration [...] HC BMI BSA BMI Percentile O2 Sat(%) 07/01/2015 2:03:00 PM 140 mmHg 90 mmHg [...] with hypersomnolence 10/16/2014 Sleep study done at [facility] found severe obstructive sleep apnea, CPAP at 15cm water pressure ordered through [employer], Insurance refusing to pay for CPAP but [...] Paraplegic immobility syndrome Jul 01 2015 2:05PM Payers Insurance Name Company Name Plan Name Plan Number Policy Number Policy Group Number Start Date Medicare Part B Medicare Of [place] [id number] N/A [employer] [place] State Plan Amer[employer] [place] State Plan [id number] N/A History of Encounters Visit Date Visit Type Provider 07/01/2015 Office visit Beverley Salazar MULTI SHARE PROGRAM COORDINATOR 05/03/2015 Office visit Regina Blas MULTI SHARE PROGRAM COORDINATOR 04/12/2015 Office visit Beverley Salazar MULTI SHARE PROGRAM COORDINATOR 04/09/2015 Office visit Regina Blas MULTI SHARE PROGRAM COORDINATOR 04/04/2015 Office visit 04/04/2015 Office visit Beverley Salazar MULTI SHARE PROGRAM COORDINATOR 03/20/2015 Office visit 03/20/2015 Office visit Beverley Salazar MULTI SHARE PROGRAM COORDINATOR 02/20/2015 Office visit Beverley Salazar APRN 11/20/2014 Office visit Beverley Salazar APRN
--- OUTSIDE RECORDS SUMMARY | 2017-03-31 15:45 | XMS REPORT | Continuity of Care Document ---
Author Author [facility] Organization [facility] Address [facility] [address] [place] [address] Phone Unavailable Support Name Relationship Address Phone SONAM QUINTERO M.D. Caregiver [address] [place] [address] JAROD ARITA D.O. Caregiver [address] [place] [id number] JORDAN JUAREZ Next Of Kin [address] [place], [place] [id number] Insurance Providers Payer Name Policy Number Subscriber Name Relationship Medicare [id number] Lavell Smith 18 Self / Same As Patient [facility] [id number] Lavell Smith 18 Self / Same As Patient Advance Directives Directive Response Recorded Date/Time Do you have an Advanced Directive? No 08/04/07 9:59pm Advance Directives No 08/10/15 1:30am Living Will N N 12/10/15 6:32pm Health Care Proxy No 12/16/15 1:21pm Power of Skein Straightener for Health Care No 08/10/15 1:30am Organ, [...] No known vital signs results. Results Pending Microbiology Results Procedure Source Collection Date/Time Procedures Procedure Status Date Provider(s) DRAKE SUBQ TISSUE 20 SQ CM/< Completed 10/21/15 DRAKE SUBQ TISSUE 20 SQ CM/< Completed 10/21/15 DRAKE SUBQ TISSUE 20 SQ CM/< Completed 10/21/15 DRAKE SUBQ TISSUE 20 SQ CM/< Completed 10/21/15 BIOPSY SKIN LESION Completed 10/21/15 TISSUE EXAM BY PATHOLOGIST Completed 10/21/15 DRAKE SUBQ TISSUE 20 SQ CM/< Completed 11/19/15 DRAKE SUBQ TISSUE 20 SQ CM/< Completed 11/19/15 DRAKE SUBQ TISSUE 20 SQ CM/< Completed 11/19/15 DRAKE SUBQ TISSUE 20 SQ CM/< Completed 11/19/15 CULTURE OTHR SPECIMN AEROBIC Completed 12/10/15 Encounters Encounter Location Arrival/Admit Date Discharge/Depart Date Attending Provider Discharged Recurring [place] 12/16/15 1:22pm 01/15/16 3:33pm JAROD ARITA D.O. Registered Referred [place] 12/10/15 6:40pm JAROD ARITA D.O. Discharged Recurring [place] 11/19/15 8:52am 12/13/15 3:07pm JAROD ARITA D.O. Discharged Recurring [place] 10/21/15 9:58am 11/14/15 4:20pm JAROD ARITA D.O.
--- OUTSIDE RECORDS SUMMARY | 2017-03-31 15:46 | XMS REPORT ---
Author Author Beverley Salazar Organization [facility] Address [address] [place], [place] [address] Care Team Providers Care Food And Beverage Assistant Manager Name Role Phone Beverley Salazar PCP Unavailable [...] days Tylenol-Codeine #3 300-30 mg oral tablet 01/23/2016 01/27/2016 take 1 tablet by oral route every 6 hours as needed for 4 days tizanidine 2 mg oral tablet 01/23/2016 02/06/2016 take 1-2 tablets by oral route every 8 hours as needed for 14 days Discontinued Name Start Date Discontinued Date [...] HC BMI BSA BMI Percentile O2 Sat(%) 02/04/2016 11:43:00 AM 120 mmHg 80 mmHg [...] with hypersomnolence 10/16/2014 Sleep study done at [facility] found severe obstructive sleep apnea, CPAP at 15cm water pressure ordered through [employer], Insurance refusing to pay for CPAP but [...] with cognitive complaints Feb 04 2016 11:45AM Payers Insurance Name Company Name Plan Name Plan Number Policy Number Policy Group Number Start Date Medicare Part A Medicare [facility] [id number] N/A [employer] - [place] State Plan Amer[employer] - [facility] [place] State Plan [id number] N/A Medicare Part A Medicare - Lab/Xray [id number] N/A Medicare Part B Medicare Of [place] [id number] N/A [employer] [place] State Plan Amer[employer] [place] State Plan [id number] N/A History of Encounters Visit Date Visit Type Provider 02/04/2016 Office visit Beverley Salazar BROADBAND INSTALLER 01/23/2016 Office visit Beverley Salazar BROADBAND INSTALLER 11/30/2015 Office visit Regina Blas BROADBAND INSTALLER 10/30/2015 Voided Beverley Salazar BROADBAND INSTALLER 10/25/2015 Office visit Beverley Salazar BROADBAND INSTALLER 10/08/2015 Office visit Regina Blas BROADBAND INSTALLER 09/27/2015 Office visit 09/27/2015 Office visit Beverley Salazar BROADBAND INSTALLER 08/16/2015 Office visit Beverley Salazar BROADBAND INSTALLER 07/25/2015 Office visit Beverley Salazar BROADBAND INSTALLER 07/01/2015 Office visit Beverley Salazar BROADBAND INSTALLER 05/03/2015 Office visit Regina Blas BROADBAND INSTALLER 04/12/2015 Office visit Beverley Salazar BROADBAND INSTALLER 04/09/2015 Office visit Regina Blas BROADBAND INSTALLER 04/04/2015 Office visit 04/04/2015 Office visit Beverley Salazar BROADBAND INSTALLER 03/20/2015 Office visit 03/20/2015 Office visit Bevreley Salazar BROADBAND INSTALLER 02/20/2015 Office visit Beverley Salazar BROADBAND INSTALLER 11/20/2014 Office visit Beverley Salazar BROADBAND INSTALLER
--- OUTSIDE RECORDS SUMMARY | 2017-03-31 15:46 | XMS REPORT ---
Author Author Beverley Salazar Organization [facility] Address [address] [place], [place] [address] Care Team Providers Care Cook Ice Cream Name Role Phone Beverley Salazar PCP Unavailable [...] Date Medicare Part B Medicare Of [place] [id number] N/A [employer] [place] State Plan Amerigroup [place] State Plan [id number] N/A History of Encounters Visit Date Visit Type Provider 11/20/2014 Office visit Beverley Salazar APPLICATION PROCESSOR
--- OUTSIDE RECORDS SUMMARY | 2017-03-31 15:47 | XMS REPORT ---
Author Author Beverley Salazar Organization [facility] Address [address] [place] [id number] Care Team Providers Care Helpdesk Administrator Name Role Phone Beverley Salazar PCP Unavailable [...] oral route once daily for 90 days Tylenol-Codeine #3 300-30 mg oral tablet 01/23/2016 01/27/2016 take 1 tablet by oral route every 6 hours as needed for 4 days tizanidine 2 mg oral tablet 01/23/2016 02/06/2016 take 1-2 tablets by oral route every 8 hours as needed for 14 days Name Start Date Expiration Date SIG [...] HC BMI BSA BMI Percentile O2 Sat(%) 01/23/2016 11:06:00 AM 114 mmHg 80 mmHg [...] 10/16/2014 Sleep study done at [facility] found severe obstructive sleep apnea, CPAP at 15cm water pressure ordered through [employer], Insurance refusing to pay for CPAP but can do nocturnal Oxygen Spina Bifida With Hydrocephalus 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 Lymphedema of lower extremity lower extremeties right moreso then left Hydrocephalus 05/03/2015 Headache 05/03/2015 Venous ulcer 05/03/2015 Incontinence Sleep apnea Nov 20 2014 12:06PM Paraplegia [...] Lumbar back pain Jan 23 2016 11:08AM Payers Insurance Name Company Name Plan Name Plan Number Policy Number Policy Group Number Start Date Medicare Part B Medicare Of [place] [id number] N/A [employer] [place] [employer] [place] Plan [id number] N/A History of Encounters Visit Date Visit Type Provider 01/23/2016 Office visit Beverley Salazar APRN 11/30/2015 Office visit Regina Blas ELECTROMEDICAL SERVICE ENGINEER 10/30/2015 Voided Beverley Salazar ELECTROMEDICAL SERVICE ENGINEER 10/25/2015 Office visit Beverley Salazar APRN 10/08/2015 Office visit Regina Blas APRN 09/27/2015 Office visit 09/27/2015 Office visit Beverley Salazar APRN 08/16/2015 Office visit Beverley Salazar APRN 07/25/2015 Office visit Beverley Salazar APRN 07/01/2015 Office visit Beverley Salazar ELECTROMEDICAL SERVICE ENGINEER 05/03/2015 Office visit Regina Blas ELECTROMEDICAL SERVICE ENGINEER 04/12/2015 Office visit Beverley Salazar APRN 04/09/2015 Office visit Regina Blas APRN 04/04/2015 Office visit 04/04/2015 Office visit Beverley Salazar APRN 03/20/2015 Office visit 03/20/2015 Office visit Beverley Salazar APRN 02/20/2015 Office visit Beverley Salazar APRN 11/20/2014 Office visit Beverley Salazar APRN
--- OUTSIDE RECORDS SUMMARY | 2017-03-31 15:47 | XMS REPORT | Continuity of Care Document ---
Author Author [facility] Organization [facility] Address Unknown Phone Unavailable Allergies Medications Problems Procedures Results Encounters ACCT No. Visit Date/Time Discharge Status Pt. Type Provider Facility Loc./Unit Complaint [id number] 03/25/2016 14:59:33 03/25/2016 23: 59:59 [facility] Outpatient Beverley Salazar [id number] 03/13/2016 19:25:09 03/13/2016 23: 59:59 [facility] Outpatient Beverley Salazar [id number] 03/03/2016 11:49:22 03/03/2016 23: 59:59 [facility] Outpatient Beverley Salazar [id number] 02/07/2016 10:19:38 02/07/2016 23: 59:59 [facility] Outpatient Beverley Salazar [id number] 01/23/2016 11:38:31 01/23/2016 23: 59:59 [facility] Outpatient Beverley Salazar [id number] 12/21/2015 20:20:27 12/21/2015 23: 59:59 [facility] Outpatient Beverley Salazar [id number] 11/30/2015 16:00:42 11/30/2015 23: 59:59 [facility] Outpatient Regina Blas [id number] 07/25/2015 15:26:25 07/25/2015 23: 59:59 [facility] Outpatient Beverley Salazar [id number] 07/01/2015 14:47:56 07/01/2015 23: 59:59 [facility] Outpatient Beverley Salazar [id number] 05/03/2015 15:41:52 05/03/2015 23: 59:59 [facility] Outpatient Regina Blas [id number] 04/12/2015 14:15:25 04/12/2015 23: 59:59 [facility] Outpatient Beverley Salazar [id number] 04/09/2015 14:19:19 04/09/2015 23: 59:59 [facility] Outpatient Regina Blas [id number] 04/04/2015 11:46:55 04/04/2015 23: 59:59 [facility] Outpatient Beverley Salazar [id number] 03/20/2015 14:38:53 03/20/2015 23: 59:59 [facility] Outpatient Beverley Salazar [id number] 02/20/2015 11:47:26 02/20/2015 23: 59:59 [facility] Outpatient Beverley Salazar [id number] 12/24/2014 22:10:53 12/24/2014 23: 59:59 [facility] Outpatient Beverley Salazar
[2017-03-31 15:50] LABS: KETONES,URINE 1+ (NEGATIVE); LEUKOCYTE ESTERASE ,URINE 2+ (NEGATIVE); NITRITE,URINE POSITIVE (NEGATIVE); PH,URINE 5 (5-9); PROTEIN,URINE 3+ (NEGATIVE); UROBILINOGEN,URINE 4 MG/DL (NORMAL)
[2017-03-31 16:01] LABS: BILIRUBIN,URINE 2+ (NEGATIVE); WBC,URINE 0-2 /HPF
[2017-03-31] MEDS: NS IV 1000 ML 2,000 ML ONE ×2 (16:32→17:01)
[2017-03-31 16:49] VITALS: BP 96/50
== END 2017-03-31 16:49 | disposition short-term general hospital (02) ==
LOC: EDUNIT# 13:52 → ER 13:54
DX: A41.9 Sepsis, unspecified organism (principal); R65.21 Severe sepsis with septic shock; N17.9 Acute kidney failure, unspecified; G82.20 Paraplegia, unspecified; Z98.2 Presence of cerebrospinal fluid drainage device
CPT/HCPCS: 36415; 51702; 71010; 80053; 81000; 83605; 85007; 85027; 85610; 85730; 87040; 87088

== ENCOUNTER → 2017-10-21 | Outpatient (CLI) | payer MEDICARE, MEDICAID | LOC: WOUNDCARE 08:30 | PROVIDERS: ATTEND Nurse Practitioner | DX: L89.303 Pressure ulcer of unspecified buttock, stage 3 (principal); Q05.9 Spina bifida, unspecified; G82.20 Paraplegia, unspecified | CPT/HCPCS: 99214 ==

== ENCOUNTER → 2017-10-27 | Outpatient (CLI) | payer MEDICARE, MEDICAID | LOC: WOUNDCARE 08:52 | PROVIDERS: ATTEND Surgery | DX: L98.492 Non-pressure chronic ulcer of skin of other sites with fat layer exposed (principal); L89.93 Pressure ulcer of unspecified site, stage 3; Q05.9 Spina bifida, unspecified; T81.31XA Disruption of external operation (surgical) wound, not elsewhere classified, initial encounter | CPT/HCPCS: 11042; 11045; 87070; 87075; 87077; 87186; 87205 ==

== ENCOUNTER → 2017-11-02 | Outpatient (CLI) | payer MEDICARE, MEDICAID | LOC: WOUNDCARE 10:07 | PROVIDERS: ATTEND Nurse Practitioner | DX: L89.93 Pressure ulcer of unspecified site, stage 3 (principal); L98.492 Non-pressure chronic ulcer of skin of other sites with fat layer exposed; T81.31XD Disruption of external operation (surgical) wound, not elsewhere classified, subsequent encounter; Q05.9 Spina bifida, unspecified | CPT/HCPCS: 11042; 11045 ==

== ENCOUNTER → 2017-11-18 | Outpatient (CLI) | payer MEDICARE, MEDICAID | LOC: WOUNDCARE 08:52 | PROVIDERS: ATTEND Nurse Practitioner | DX: L98.492 Non-pressure chronic ulcer of skin of other sites with fat layer exposed (principal); L89.93 Pressure ulcer of unspecified site, stage 3; T81.31XA Disruption of external operation (surgical) wound, not elsewhere classified, initial encounter; Q05.9 Spina bifida, unspecified | CPT/HCPCS: 11042; 11045 ==

== ENCOUNTER → 2017-11-25 | Outpatient (CLI) | payer MEDICARE, MEDICAID | LOC: WOUNDCARE 08:37 | PROVIDERS: ATTEND Surgery | DX: L89.93 Pressure ulcer of unspecified site, stage 3 (principal); L98.492 Non-pressure chronic ulcer of skin of other sites with fat layer exposed; T81.31XA Disruption of external operation (surgical) wound, not elsewhere classified, initial encounter; Q05.9 Spina bifida, unspecified; L92.8 Other granulomatous disorders of the skin and subcutaneous tissue | CPT/HCPCS: 17250 ==

== ENCOUNTER → 2017-11-30 | Outpatient (CLI) | payer MEDICARE, MEDICAID | LOC: WOUNDCARE 08:44 | PROVIDERS: ATTEND Surgery | DX: L98.492 Non-pressure chronic ulcer of skin of other sites with fat layer exposed (principal); T81.31XA Disruption of external operation (surgical) wound, not elsewhere classified, initial encounter; Q05.9 Spina bifida, unspecified | CPT/HCPCS: 15271; 87070; 87075; 87205 ==

== ENCOUNTER → 2017-12-07 | Outpatient (CLI) | payer MEDICARE, MEDICAID | LOC: WOUNDCARE 08:57 | PROVIDERS: ATTEND Nurse Practitioner | DX: L98.492 Non-pressure chronic ulcer of skin of other sites with fat layer exposed (principal); T81.31XA Disruption of external operation (surgical) wound, not elsewhere classified, initial encounter; Q05.9 Spina bifida, unspecified | CPT/HCPCS: 11042; 11045 ==

== ENCOUNTER → 2017-12-14 | Outpatient (CLI) | payer MEDICARE, MEDICAID | LOC: WOUNDCARE 08:51 | PROVIDERS: ATTEND Nurse Practitioner | DX: L98.492 Non-pressure chronic ulcer of skin of other sites with fat layer exposed (principal); T81.31XA Disruption of external operation (surgical) wound, not elsewhere classified, initial encounter; Q05.9 Spina bifida, unspecified | CPT/HCPCS: 87070; 87075; 87077; 87186; 87205; 99214 ==

== ENCOUNTER → 2017-12-21 | Outpatient (CLI) | payer MEDICARE, MEDICAID | LOC: WOUNDCARE 09:10 | PROVIDERS: ATTEND Nurse Practitioner | DX: L98.492 Non-pressure chronic ulcer of skin of other sites with fat layer exposed (principal); T81.31XA Disruption of external operation (surgical) wound, not elsewhere classified, initial encounter; Q05.9 Spina bifida, unspecified | CPT/HCPCS: 99214 ==

== ENCOUNTER → 2017-12-28 | Outpatient (CLI) | payer MEDICARE, MEDICAID | LOC: WOUNDCARE 09:00 | PROVIDERS: ATTEND Nurse Practitioner | DX: L98.492 Non-pressure chronic ulcer of skin of other sites with fat layer exposed (principal); T81.31XA Disruption of external operation (surgical) wound, not elsewhere classified, initial encounter; Q05.9 Spina bifida, unspecified | CPT/HCPCS: 11042; 11045 ==

== ENCOUNTER → 2018-01-20 | Outpatient (CLI) | payer MEDICARE, MEDICAID | LOC: WOUNDCARE 09:18 | PROVIDERS: ATTEND Surgery | DX: L98.492 Non-pressure chronic ulcer of skin of other sites with fat layer exposed (principal); T81.31XA Disruption of external operation (surgical) wound, not elsewhere classified, initial encounter; Q05.9 Spina bifida, unspecified; L92.8 Other granulomatous disorders of the skin and subcutaneous tissue | CPT/HCPCS: 11042; 87070; 87075; 87077; 87186; 87205 ==

== ENCOUNTER → 2018-01-25 | Outpatient (CLI) | payer MEDICARE, MEDICAID | LOC: WOUNDCARE 08:45 | PROVIDERS: ATTEND Nurse Practitioner | DX: L98.492 Non-pressure chronic ulcer of skin of other sites with fat layer exposed (principal); T81.31XA Disruption of external operation (surgical) wound, not elsewhere classified, initial encounter; Q05.9 Spina bifida, unspecified; L92.8 Other granulomatous disorders of the skin and subcutaneous tissue | CPT/HCPCS: 99213 ==

== ENCOUNTER → 2018-02-03 | Outpatient (CLI) | payer MEDICARE, MEDICAID | LOC: WOUNDCARE 08:30 | PROVIDERS: ATTEND Nurse Practitioner | DX: T81.31XA Disruption of external operation (surgical) wound, not elsewhere classified, initial encounter (principal); L92.8 Other granulomatous disorders of the skin and subcutaneous tissue; L98.492 Non-pressure chronic ulcer of skin of other sites with fat layer exposed | CPT/HCPCS: 17250 ==

== ENCOUNTER → 2018-02-08 | Outpatient (CLI) | payer MEDICARE, MEDICAID | LOC: WOUNDCARE 08:59 | PROVIDERS: ATTEND Nurse Practitioner | DX: L98.492 Non-pressure chronic ulcer of skin of other sites with fat layer exposed (principal); T81.31XA Disruption of external operation (surgical) wound, not elsewhere classified, initial encounter; Q05.9 Spina bifida, unspecified; L92.8 Other granulomatous disorders of the skin and subcutaneous tissue | CPT/HCPCS: 99212 ==

== ENCOUNTER → 2018-02-15 | Outpatient (CLI) | payer MEDICARE, MEDICAID | LOC: WOUNDCARE 08:05 | PROVIDERS: ATTEND Nurse Practitioner | DX: L98.492 Non-pressure chronic ulcer of skin of other sites with fat layer exposed (principal); T81.31XA Disruption of external operation (surgical) wound, not elsewhere classified, initial encounter; Q05.9 Spina bifida, unspecified; L92.8 Other granulomatous disorders of the skin and subcutaneous tissue | CPT/HCPCS: 99212 ==

== ENCOUNTER → 2018-03-01 | Outpatient (CLI) | payer MEDICARE, MEDICAID | LOC: WOUNDCARE 08:03 | PROVIDERS: ATTEND Surgery | DX: E11.622 Type 2 diabetes mellitus with other skin ulcer (principal); L98.492 Non-pressure chronic ulcer of skin of other sites with fat layer exposed; T81.31XA Disruption of external operation (surgical) wound, not elsewhere classified, initial encounter; Q05.9 Spina bifida, unspecified | CPT/HCPCS: 11042; 11045; 87070; 87075; 87077; 87186; 87205; 88305 ==

== ENCOUNTER → 2018-03-08 | Outpatient (CLI) | payer MEDICARE, MEDICAID | LOC: WOUNDCARE 08:48 | PROVIDERS: ATTEND Nurse Practitioner | DX: L88 Pyoderma gangrenosum (principal); L98.492 Non-pressure chronic ulcer of skin of other sites with fat layer exposed; T81.31XA Disruption of external operation (surgical) wound, not elsewhere classified, initial encounter; Q05.9 Spina bifida, unspecified; E11.622 Type 2 diabetes mellitus with other skin ulcer | CPT/HCPCS: 99212 ==

== ENCOUNTER → 2018-03-15 | Outpatient (CLI) | payer MEDICARE, MEDICAID | LOC: WOUNDCARE 09:03 | PROVIDERS: ATTEND Nurse Practitioner | DX: L88 Pyoderma gangrenosum (principal); L98.492 Non-pressure chronic ulcer of skin of other sites with fat layer exposed; T81.31XA Disruption of external operation (surgical) wound, not elsewhere classified, initial encounter; Q05.9 Spina bifida, unspecified; E11.622 Type 2 diabetes mellitus with other skin ulcer | CPT/HCPCS: 99212 ==

== ENCOUNTER → 2018-03-22 | Outpatient (CLI) | payer MEDICARE, MEDICAID | LOC: WOUNDCARE 09:14 | PROVIDERS: ATTEND Nurse Practitioner | DX: L88 Pyoderma gangrenosum (principal); L98.492 Non-pressure chronic ulcer of skin of other sites with fat layer exposed; T81.31XA Disruption of external operation (surgical) wound, not elsewhere classified, initial encounter; Q05.9 Spina bifida, unspecified; E11.622 Type 2 diabetes mellitus with other skin ulcer | CPT/HCPCS: 99213 ==

== ENCOUNTER → 2018-03-29 | Outpatient (CLI) | payer MEDICARE, MEDICAID | LOC: WOUNDCARE 08:52 | PROVIDERS: ATTEND Nurse Practitioner | DX: L88 Pyoderma gangrenosum (principal); L98.492 Non-pressure chronic ulcer of skin of other sites with fat layer exposed; T81.31XA Disruption of external operation (surgical) wound, not elsewhere classified, initial encounter; Z05.9 Observation and evaluation of newborn for unspecified suspected condition ruled out; E11.622 Type 2 diabetes mellitus with other skin ulcer | CPT/HCPCS: 99212 ==

== ENCOUNTER → 2018-04-05 | Outpatient (CLI) | payer MEDICARE, MEDICAID | LOC: WOUNDCARE 08:39 | PROVIDERS: ATTEND Nurse Practitioner | DX: E11.622 Type 2 diabetes mellitus with other skin ulcer (principal); L88 Pyoderma gangrenosum; L98.492 Non-pressure chronic ulcer of skin of other sites with fat layer exposed; Q05.9 Spina bifida, unspecified; T81.31XA Disruption of external operation (surgical) wound, not elsewhere classified, initial encounter | CPT/HCPCS: 99212 ==

== ENCOUNTER → 2018-04-19 | Outpatient (CLI) | payer MEDICARE, MEDICAID | LOC: WOUNDCARE 10:52 | PROVIDERS: ATTEND Nurse Practitioner | DX: E11.622 Type 2 diabetes mellitus with other skin ulcer (principal); L88 Pyoderma gangrenosum; L98.492 Non-pressure chronic ulcer of skin of other sites with fat layer exposed; T81.31XA Disruption of external operation (surgical) wound, not elsewhere classified, initial encounter; Q05.9 Spina bifida, unspecified | CPT/HCPCS: 99212 ==

== ENCOUNTER → 2018-05-03 | Outpatient (CLI) | payer MEDICARE, MEDICAID | LOC: WOUNDCARE 08:50 | PROVIDERS: ATTEND Nurse Practitioner | DX: L88 Pyoderma gangrenosum (principal); L98.492 Non-pressure chronic ulcer of skin of other sites with fat layer exposed; T81.31XA Disruption of external operation (surgical) wound, not elsewhere classified, initial encounter; Q05.9 Spina bifida, unspecified; E11.622 Type 2 diabetes mellitus with other skin ulcer | CPT/HCPCS: 99213 ==

== ENCOUNTER 2018-05-12 16:21 | Inpatient (IN) | payer MEDICARE, MEDICAID ==
[2018-05-12] VITALS (7 sets, daily range): BP systolic 106–119; BP diastolic 70–85
[~2018-05-12] VITALS: Ht 157.5 cm; Wt 134.7 kg
[2018-05-12] MEDS ORDERED: NS IV 1000 ML 1,000 ML IV ONE ×3 (16:31→19:15)
[2018-05-12 16:45] LABS: BASOPHILS % (AUTO) 0 % (0-10); EOSINOPHILS # (AUTO) 0.3 10^3/uL (0.0-0.3); EOSINOPHILS % (AUTO) 2 % (0-10); HEMATOCRIT 46 % (40-54); HEMOGLOBIN 15.4 G/DL (13.3-17.7); LYMPHOCYTES # (AUTO) 1.5 X 10^3 (1.0-4.0); LYMPHOCYTES % (AUTO) 9 % (12-44); MEAN CORPUSCULAR HEMOGLOBIN 28 PG (25-34); MEAN CORPUSCULAR HGB CONC 34 G/DL (32-36); MEAN CORPUSCULAR VOLUME 84 FL (80-99); MEAN PLATELET VOLUME 8.7 FL (7.4-10.4); MONOCYTES # (AUTO) 0.9 X 10^3 (0.0-1.0); MONOCYTES % (AUTO) 6 % (0-12); NEUTROPHILS % (AUTO) 84 % (42-75); PLATELET COUNT 376 10^3/uL (130-400); RED BLOOD COUNT 5.42 10^6/uL (4.35-5.85); RED CELL DISTRIBUTION WIDTH 14.9 % (10.0-14.5); WHITE BLOOD COUNT 16.7 10^3/uL (4.3-11.0)
[2018-05-12] MEDS ORDERED: ONDANSETRON 4 MG/2 ML (SDV) Z0FRAN IVP ONE ×2 (16:45→18:00)
--- NOTE | 2018-05-12 16:53 | Diagnostic Imaging Report ---
INDICATION: History of sepsis. Diaphoresis. COMPARISON: 03/31/2017 FINDINGS: Single frontal view of the chest demonstrates normal heart size and pulmonary vascularity. The lungs show somewhat shallow inspiratory volumes, but are otherwise clear. No large pleural effusion or pneumothorax is seen. The visualized osseous structures show no acute abnormalities. IMPRESSION: 1. No acute cardiopulmonary process. Dictated by: Dictated on workstation # [id number]
[2018-05-12 16:56] LABS: INR 0.9 (0.8-1.4); PROTHROMBIN TIME PATIENT 12.2 SEC (12.2-14.7)
[2018-05-12 16:59] LABS: BAND NEUTROPHILS 21 %; BASOPHILS % (MANUAL) 0 %; EOSINOPHILS % (MANUAL) 1 %; LYMPHOCYTES % (MANUAL) 8 %; MONOCYTES % (MANUAL) 3 %; NEUTROPHILS % (MANUAL) 67 %
[2018-05-12 17:00] LABS: RBC MORPH NORMAL
[2018-05-12 17:04] LABS: ALANINE AMINOTRANSFERASE 101 U/L (0-55); ALBUMIN 4.8 GM/DL (3.2-4.5); ALKALINE PHOSPHATASE 139 U/L (40-136); BILIRUBIN,TOTAL 0.3 MG/DL (0.1-1.0); BUN/CREATININE RATIO 16; CARBON DIOXIDE 23 MMOL/L (21-32); CHLORIDE 102 MMOL/L (98-107); CREATININE SERUM 0.94 MG/DL (0.60-1.30); GFR ESTIMATED > 60; GLUCOSE 109 MG/DL (70-105); POTASSIUM 4.7 MMOL/L (3.6-5.0); SODIUM 138 MMOL/L (135-145); TOTAL PROTEIN 9.1 GM/DL (6.4-8.2)
[2018-05-12] MEDS ORDERED: cefTRIAXone FOR IV USE 1,000 MG in NS (IVPB) 50 ML IV ONE (17:30)
[2018-05-12] MEDS ORDERED: VANCOMYCIN INJECTION 1,000 MG in NS (IVPB) 250 ML IV ONE (17:30)
[2018-05-12 17:58] LABS: BILIRUBIN,URINE 1+ (NEGATIVE); CLARITY,URINE VERY CLOUDY; COLOR,URINE AMBER; GLUCOSE, URINE (UA) NEGATIVE (NEGATIVE); KETONES,URINE NEGATIVE (NEGATIVE); LEUKOCYTE ESTERASE ,URINE 3+ (NEGATIVE); NITRITE,URINE POSITIVE (NEGATIVE); PH,URINE 8 (5-9); PROTEIN,URINE 4+ (NEGATIVE); UROBILINOGEN,URINE NORMAL (NORMAL)
[2018-05-12] MEDS ORDERED: RECEIVED CONTRAST (Hold Metformin) IV SCH (18:00)
[2018-05-12] MEDS ORDERED: IOHEXOL 350 MG/ML 100 ML (OMNIPAQUE 350) VIAL IV ONE (18:00)
[2018-05-12] MEDS ORDERED: NS 100 ML (IVPB) BAG IV ONE (18:00)
[2018-05-12 18:09] LABS: BACTERIA,URINE LARGE /HPF; RBC,URINE >100 /HPF; WBC,URINE 25-50 /HPF
--- NOTE | 2018-05-12 18:42 | Diagnostic Imaging Report ---
PROCEDURE: CT abdomen and pelvis with contrast. TECHNIQUE: Multiple contiguous axial images were obtained through the abdomen and pelvis after administration of intravenous contrast. INDICATION: Weakness, diaphoresis. COMPARISON: None available. FINDINGS: 0.4 cm subpleural pulmonary nodule is present within the right lower lobe. Minimal scarring and/or atelectasis within the left lower lobe. Diffusely decreased density over the liver, consistent with fatty infiltration of the liver. No focal hepatic mass. The spleen is unremarkable. The adrenal glands are unremarkable. The pancreas is unremarkable. The gallbladder is decompressed. The bilateral kidneys are lobulated with extensive scattered areas of scarring throughout the bilateral kidneys. No hydronephrosis. The bilateral ureters are unremarkable. No aneurysmal dilatation of the abdominal aorta. Significant dilatation of the small bowel is identified, measuring up to 6.5 cm. This is associated with dilatation of the stomach. Diastases of the rectus abdominal musculature is present with associated midline anterior abdominal wall hernia, inferiorly. There appears to be focal transition point associated with the bowel within this hernia sac. This is best seen on series 2 image 77 through 82. Decompressed loops of small bowel are noted distally. The colon is predominantly surgically absent. Right-sided ileostomy is present, which is decompressed. Tiny parastomal hernia. No evidence of pneumatosis or portal venous gas. Suprapubic catheter is in place. Mural thickening of the urinary bladder is present. Lymph nodes within the abdomen and pelvis are borderline prominent, particularly within the left pelvis where it measured near 1 cm in short dimension. No free air. Dislocation of the right hip joint with the right femoral head superiorly positioned in relationship to the acetabulum, which is associated with underdevelopment of the right acetabulum. 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 No acute fracture. IMPRESSION: 1. Findings concerning for a high-grade small bowel obstruction with transition point suggested within the midline lower abdomen and pelvis within a hernia sac/diastasis of the rectus abdominal musculature. 2. Fatty infiltration of the liver. 3. Dislocation of the right hip. This may be congenital in nature and related to developmental dysplasia of the hip. Recommend clinical correlation. 4. Postsurgical changes of a colectomy with associated right sided ileostomy, which is decompressed secondary to the more proximal small bowel obstruction. 5. Borderline prominent mesenteric lymph nodes. 6. There is a 0.4 cm subpleural pulmonary nodule within the right lower lobe. This is consistent with a calcified granuloma, and benign. 7. Mural thickening of the urinary bladder. This is associated with suprapubic Goncalves catheter in place. Mural thickening could relate to underlying cystitis. Correlation with urinalysis recommended. 8. Additional findings as above. Report was called nurse Liriano (for Dr. Andi Mckenzie) in the [facility] ER at 6:37 p.m., by antoinette. Dictated by: Dictated on workstation # [id number]
[2018-05-12] MEDS ORDERED: PROMETHAZINE INJ 25 MG/ML (PHENERGAN) AMP ONE (18:54)
[2018-05-12] MEDS ORDERED: PROMETHAZINE INJ 25 MG/ML (PHENERGAN) AMP IVP ONE (19:15)
[2018-05-12] MEDS ORDERED: fentaNYL INJECTION 100 MCG/2 ML AMP ONE (19:23)
[2018-05-12] MEDS ORDERED: fentaNYL INJECTION 100 MCG/2 ML AMP IVP ONE ×3 (19:30→20:30)
--- NOTE | 2018-05-12 19:47 | ED General ---
General Chief Complaint: General Problems/Pain Stated Complaint: DIAPHORETIC,HX SEPSIS Nursing Triage Note: pt sent from [facility] with complaint of weakness, diahphoresis, and increased colostomy output. Nursing Sepsis Screen: No Definite Risk Source of Information: Patient, EMS, Family, [facility] Records, Old Records History of Present Illness Date Seen by Provider: May 12, 2018 Time Seen by Provider: 16:21 Initial Comments This 32-year-old gentleman presents to the emergency room from the detention in [facility] via EMS because of diaphoresis, weakness, and tachycardia. He has a sinus tachycardia in the 130s. Patient has a history of septic shock in March of last year when he had a bowel issue causing sepsis. He had a long- term stay at [facility] after being transferred from the ER. He had a colon resection and ileostomy performed. He presently has an ileostomy bag. In addition to tachycardia, diaphoresis, and weakness, patient also complains of some abdominal distention and tenderness. He is nauseous without vomiting. Patient has a history of spina bifida causing paralysis below the knees bilaterally. He also has a SIDE SAWYER shunt. He has a suprapubic catheter. There is heavy sediment in his catheter line. He has been seeing wound care for wounds on the abdominal wall. They appear to be well healing and closed at this time. Allergies and Home Medications Allergies Coded Allergies: latex (Verified Allergy, Unknown, 03/31/17) Patient Home Medication List Home Medication List Reviewed: Yes Review of Systems Review of Systems Constitutional: see HPI, diaphoresis EENTM: no symptoms reported Respiratory: no symptoms reported Cardiovascular: see HPI Gastrointestinal: see HPI Genitourinary: see HPI Musculoskeletal: no symptoms reported Skin: see HPI Psychiatric/Neurological: See HPI Hematologic/Lymphatic: No Symptoms Reported Immunological/Allergic: no symptoms reported Past Jfbbtzc-Taxwdc-Rvwdap Hx Past Med/Social Hx: Reviewed and Corrections made Patient Social History Alcohol Use: Occasionally Uses Recreational Drug Use: No Smoking Status: Never a Smoker Recent Foreign Travel: No Contact w/Someone Who Travel: No Recent Infectious Disease Expo: No Immunizations Up To Date Tetanus Booster (TDap): Unknown PED Vaccines UTD: Yes Past Medical History Surgeries: Yes (ileostomy) Abdominal, Brain Shunt Respiratory: Yes Asthma Cardiac: Yes Hypertension Neurological: Yes (spina bifida, SIDE SAWYER shunt) Genitourinary: Yes Gastrointestinal: Yes Abdominal Hernia Musculoskeletal: Yes Endocrine: Yes Diabetes, Non-Insulin dep HEENT: No Cancer: No Psychosocial: Yes Depression Family Medical History Reviewed and Corrections made Other Conditions/Hx (thyroid disease) Physical Exam-Suspected Sepsis Physical Exam Vital Signs Vital Signs - First Documented 05/12/18 16:22 Temp 99.2 Pulse 137 Resp 20 B/P (MAP) 140/100 (113) Pulse Ox 96 O2 Delivery Room Air Capillary Refill : Less Than 3 Seconds Blood Pressure Mean: 113 Height, Weight, BMI Height: 5'2.00" Weight: 300lbs. oz. 136.538221nr; BMI Method:Stated General Appearance: No Apparent Distress, WD/WN HEENT: PERRL/EOMI, Pharynx Normal, Other (cranial scars and SIDE SAWYER shunt) Neck: Normal Inspection Respiratory: Lungs Clear, Normal Breath Sounds, No Accessory Muscle Use, No Respiratory Distress Cardiovascular: No Edema, No Murmur, Tachycardia Gastrointestinal: Normal Bowel Sounds, Soft, Distended, Tenderness (generalized ) Extremity: Normal Capillary Refill, Normal Inspection, No Pedal Edema Neurologic/Psychiatric: Alert, Oriented x3, Normal Mood/Affect, wireless telegrapher II-XII Norm as Tested, Motor Weakness (distal lower extremities, chronic and unchanged) Skin: normal color, warm/dry, other (well-healing wounds on the abdomen are dressed) Focused Exam Lactate Level 05/12/18 16:32: Lactic Acid Level 2.44*H Lactic Acid Level Laboratory Tests Test 05/12/18 16:32 Lactic Acid Level 2.44 MMOL/L (0.50-2.00) *H Progress/Results/Core Measures Suspected Sepsis Recent Fever Within 48 Hours: No Infection Criteria Present: None New/Unexplained Altered Menta: No Sepsis Screen: No Definite Risk SIRS Temperature:99.2 Pulse: 137 Respiratory Rate: 20 Laboratory Tests 05/12/18 16:32: White Blood Count 16.7H Blood Pressure 140 /100 Mean: 113 05/12/18 16:32: Lactic Acid Level 2.44*H Laboratory Tests 05/12/18 16:32: Creatinine 0.94, INR Comment 0.9, Platelet Count 376, Total Bilirubin 0.3 Results/Orders Lab Results Laboratory Tests Test 05/12/18 16:32 05/12/18 17:52 Range/Units White Blood Count 16.7 H 4.3-11.0 10^3/uL Red Blood Count 5.42 4.35-5.85 10^6/uL Hemoglobin 15.4 13.3-17.7 G/DL Hematocrit 46 40-54 % Mean Corpuscular Volume 84 80-99 FL Mean Corpuscular Hemoglobin 28 25-34 PG Mean Corpuscular Hemoglobin Concent 34 32-36 G/DL Red Cell Distribution Width 14.9 H 10.0-14.5 % Platelet Count 376 130-400 10^3/uL Mean Platelet Volume 8.7 7.4-10.4 FL Neutrophils (%) (Auto) 84 H 42-75 % Lymphocytes (%) (Auto) 9 L 12-44 % Monocytes (%) (Auto) 6 0-12 % Eosinophils (%) (Auto) 2 0-10 % Basophils (%) (Auto) 0 0-10 % Neutrophils # (Auto) 14.0 H 1.8-7.8 X 10^3 Lymphocytes # (Auto) 1.5 1.0-4.0 X 10^3 Monocytes # (Auto) 0.9 0.0-1.0 X 10^3 Eosinophils # (Auto) 0.3 0.0-0.3 10^3/uL Basophils # (Auto) 0.0 0.0-0.1 10^3/uL Neutrophils % (Manual) 67 % Lymphocytes % (Manual) 8 % Monocytes % (Manual) 3 % Eosinophils % (Manual) 1 % Basophils % (Manual) 0 % Band Neutrophils 21 % Blood Morphology Comment NORMAL Prothrombin Time 12.2 12.2-14.7 SEC INR Comment 0.9 0.8-1.4 Activated Partial Thromboplast Time 31 24-35 SEC Sodium Level 138 135-145 MMOL/L Potassium Level 4.7 3.6-5.0 MMOL/L Chloride Level 102 98-107 MMOL/L Carbon Dioxide Level 23 21-32 MMOL/L Anion Gap 13 5-14 MMOL/L Blood Urea Nitrogen 15 7-18 MG/DL Creatinine 0.94 0.60-1.30 MG/DL Estimat Glomerular Filtration Rate > 60 BUN/Creatinine Ratio 16 Glucose Level 109 H 70-105 MG/DL Lactic Acid Level 2.44 *H 0.50-2.00 MMOL/L Calcium Level 11.0 H 8.5-10.1 MG/DL Corrected Calcium 8.5-10.1 MG/DL Total Bilirubin 0.3 0.1-1.0 MG/DL Aspartate Amino Transf (AST/SGOT) 70 H 5-34 U/L Alanine Aminotransferase (ALT/SGPT) 101 H 0-55 U/L Alkaline Phosphatase 139 H 40-136 U/L Total Protein 9.1 H 6.4-8.2 GM/DL Albumin 4.8 H 3.2-4.5 GM/DL Urine Color BREANA H Urine Clarity VERY CLOUDY H Urine pH 8 5-9 Urine Specific [place] 1.010 L 1.016-1.022 Urine Protein 4+ NEGATIVE Urine Glucose (UA) NEGATIVE NEGATIVE Urine Ketones NEGATIVE NEGATIVE Urine Nitrite POSITIVE H NEGATIVE Urine Bilirubin 1+ H NEGATIVE Urine Urobilinogen NORMAL NORMAL MG/DL Urine Leukocyte Esterase 3+ H NEGATIVE Urine RBC (Auto) 5+ H NEGATIVE Urine RBC >100 H /HPF Urine WBC 25-50 H /HPF Urine Crystals NONE /LPF Urine Bacteria LARGE H /HPF Urine Casts NONE /LPF Urine Mucus NEGATIVE /LPF Urine Culture Indicated NO My Orders Orders - ANDI MCKENZIE MD Ekg Tracing (05/12/18 16:31) Monitor-Rhythm Ecg Trace Only (05/12/18 16:31) Cbc With Automated Diff (05/12/18 16:31) Comprehensive Metabolic Panel (05/12/18 16:31) Blood Culture (05/12/18 16:31) Sputum Culture (05/12/18 16:31) Urinalysis (05/12/18 16:31) Urine Culture (05/12/18 16:31) Protime With Inr (05/12/18 16:31) Partial Thromboplastin Time (05/12/18 16:31) Chest 1 View, Ap/Pa Only (05/12/18 16:31) Saline Lock/Iv-Start (05/12/18 16:31) Saline Lock/Iv-Start (05/12/18 16:31) Vital Signs Adult Sepsis Patie Q15M (05/12/18 16:31) O2 (05/12/18 16:31) Remove Rings In Anticipation O (05/12/18 16:31) Lactic Acid Analyzer (05/12/18 16:31) Ns Iv 1000 Ml (Sodium Chloride 0.9%) (05/12/18 16:31) Ondansetron Injection (Zofran Injectio (05/12/18 16:45) Wound Culture (05/12/18 16:31) Influenza A And B Antigens (05/12/18 16:46) Manual Differential (05/12/18 16:32) Ceftriaxone For Iv Use (Rocephin For I (05/12/18 17:30) Vancomycin Injection (Vancomycin Injecti (05/12/18 17:30) Ns Iv 1000 Ml (Sodium Chloride 0.9%) (05/12/18 17:44) Ct Abdomen/Pelvis W (05/12/18 17:44) Iohexol Injection (Omnipaque 350 Mg/Ml 1 (05/12/18 18:00) Contrast Received (Contrast Received) (05/12/18 18:00) Ns (Ivpb) (Sodium Chloride 0.9% Ivpb Bag (05/12/18 18:00) Ondansetron Injection (Zofran Injectio (05/12/18 18:00) Ng Tube Insert & Assessment (05/12/18 18:45) Promethazine Injection (Phenergan Injec (05/12/18 18:54) Saline Lock/Iv-Start (05/12/18 19:15) Ns Iv 1000 Ml (Sodium Chloride 0.9%) (05/12/18 19:15) Fentanyl Injection (Sublimaze Injection (05/12/18 19:23) Fentanyl Injection (Sublimaze Injection (05/12/18 19:45) Promethazine Injection (Phenergan Injec (05/12/18 19:15) Medications Given in ED Current Medications Medications Dose Ordered Sig/Sridevi Route Start Time Stop Time Status Last Admin Dose Admin Ceftriaxone Sodium 1000 mg/ Sodium Chloride 50 ml @ 100 mls/hr ONCE ONCE IV 05/12/18 17:30 05/12/18 17:59 DC 05/12/18 18:23 100 MLS/HR Fentanyl Citrate 50 mcg ONCE ONCE IVP 05/12/18 19:30 05/12/18 19:31 DC 05/12/18 19:30 50 MCG Iohexol 100 ml ONCE ONCE IV 05/12/18 18:00 05/12/18 18:01 DC 05/12/18 18:05 100 ML Ondansetron HCl 8 mg ONCE ONCE IVP 05/12/18 16:45 05/12/18 16:46 DC 05/12/18 16:42 8 MG Ondansetron HCl 8 mg ONCE ONCE IVP 05/12/18 18:00 05/12/18 18:01 DC 05/12/18 17:57 8 MG Sodium Chloride 100 ml ONCE ONCE IV 05/12/18 18:00 05/12/18 18:01 DC 05/12/18 18:05 80 ML Sodium Chloride 1,000 ml @ 0 mls/hr Q0M ONCE IV 05/12/18 16:31 05/12/18 16:33 DC 05/12/18 16:43 0 MLS/HR Sodium Chloride 1,000 ml @ 0 mls/hr Q0M ONCE IV 05/12/18 17:44 05/12/18 17:45 DC 05/12/18 18:23 1,000 MLS/HR Vital Signs/I&O 05/12/18 16:22 Temp 99.2 Pulse 137 Resp 20 B/P (MAP) 140/100 (113) Pulse Ox 96 O2 Delivery Room Air Capillary Refill : Less Than 3 Seconds Blood Pressure Mean: 113 Progress Note : Progress Note Patient was presumed septic upon arrival and septic workup was pursued. IV fluids were initiated. In total he received 3 L of IV fluid in the emergency room. He was found to have urinary tract infection by urinalysis. Antibiotic therapy was started with Rocephin followed by vancomycin. Wound cultures from wound care visits were reviewed. Antibiotic selection was based partially off of those cultures. Tachycardia persisted. Patient did not meet severe sepsis criteria. CT of the abdomen and pelvis was obtained due to abdominal pain, distention, and nausea. He was found to have a high-grade small bowel obstruction. Dr. Perez was consulted and presented to the ER to assess the patient. NG tube placement is anticipated. An IJ central line was placed by Dr. Aiken. Patient's abdominal wounds were assessed. They appeared to be closed and well healing. Culture was taken of the wounds as a precaution. I discussed the case with Dr. Mcknight who would like the patient to receive Zosyn and vancomycin in the ICU. A verbal report was given to the eICU provider salesperson jewelry. Patient was admitted to Dr. Cuellar who is covering for Dr. Nuñez. Diagnostic Imaging Diagonstic Imaging: Xray Plain Films/CT/US/NM/MRI: chest Comments Chest x-ray viewed by me and report reviewed. See report below: NAME[facility] REC#: [id number] PT STATUS: REG ER : 1985 PHYSICIAN: ANDI MCKENZIE MD ADMIT DATE: 05/12/18/ER Draft Date of Exam:05/12/18 CHEST 1 VIEW, AP/PA ONLY INDICATION: History of sepsis. Diaphoresis. COMPARISON: 03/31/2017 FINDINGS: Single frontal view of the chest demonstrates normal heart size and pulmonary vascularity. The lungs show somewhat shallow inspiratory volumes, but are otherwise clear. No large pleural effusion or pneumothorax is seen. The visualized osseous structures show no acute abnormalities. IMPRESSION: 1. No acute cardiopulmonary process. Dictated on workstation # [id number] Dict: 05/12/18 1651 Trans: 05/12/18 1652 [facility] [id number] Interpreted by: CHRIS MIRZA MD Diagonstic Imaging: CT Plain Films/CT/US/NM/MRI: abdomen, pelvis Comments CT abdomen and pelvis viewed by me and report reviewed. See report below: NAME: [facility] REC#: [id number] PT STATUS: REG ER : 1985 PHYSICIAN: ANDI MCKENZIE MD ADMIT DATE: 05/12/18/ER Signed Date of Exam: 05/12/18 CT ABDOMEN/PELVIS W PROCEDURE: CT abdomen and pelvis with contrast. TECHNIQUE: Multiple contiguous axial images were obtained through the abdomen and pelvis after administration of intravenous contrast. INDICATION: Weakness, diaphoresis. COMPARISON: None available. FINDINGS: 0.4 cm subpleural pulmonary nodule is present within the right lower lobe. Minimal scarring and/or atelectasis within the left lower lobe. Diffusely decreased density over the liver, consistent with fatty infiltration of the liver. No focal hepatic mass. The spleen is unremarkable. The adrenal glands are unremarkable. The pancreas is unremarkable. The gallbladder is decompressed. The bilateral kidneys are lobulated with extensive scattered areas of scarring throughout the bilateral kidneys. No hydronephrosis. The bilateral ureters are unremarkable. No aneurysmal dilatation of the abdominal aorta. Significant dilatation of the small bowel is identified, measuring up to 6.5 cm. This is associated with dilatation of the stomach. Diastases of the rectus abdominal musculature is present with associated midline anterior abdominal wall hernia, inferiorly. There appears to be focal transition point associated with the bowel within this hernia sac. This is best seen on series 2 image 77 through 82. Decompressed loops of small bowel are noted distally. The colon is predominantly surgically absent. Right-sided ileostomy is present, which is decompressed. Tiny parastomal hernia. No evidence of pneumatosis or portal venous gas. Suprapubic catheter is in place. Mural thickening of the urinary bladder is present. Lymph nodes within the abdomen and pelvis are borderline prominent, particularly within the left pelvis where it measured near 1 cm in short dimension. No free air. Dislocation of the right hip joint with the right femoral head superiorly positioned in relationship to the acetabulum, which is associated with underdevelopment of the right acetabulum. 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 No acute fracture. IMPRESSION: 1. Findings concerning for a high-grade small bowel obstruction with transition point suggested within the midline lower abdomen and pelvis within a hernia sac/diastasis of the rectus abdominal musculature. 2. Fatty infiltration of the liver. 3. Dislocation of the right hip. This may be congenital in nature and related to developmental dysplasia of the hip. Recommend clinical correlation. 4. Postsurgical changes of a colectomy with associated right sided ileostomy, which is decompressed secondary to the more proximal small bowel obstruction. 5. Borderline prominent mesenteric lymph nodes. 6. There is a 0.4 cm subpleural pulmonary nodule within the right lower lobe. This is consistent with a calcified granuloma, and benign. 7. Mural thickening of the urinary bladder. This is associated with suprapubic Goncalves catheter in place. Mural thickening could relate to underlying cystitis. Correlation with urinalysis recommended. 8. Additional findings as above. Report was called nurse Liriano (for Dr. Andi Mckenzie) in the [facility] ER at 6:37 p.m., by antoinette. Dictated by: Dictated on workstation # [id number] Dict: 05/12/181820 Trans: 05/12/181930 Interpreted by: NUPUR COOPER MD Electronically signed by: NUPUR COOPER MD 05/12/181930 Departure Communication (Admissions) Time/Spoke to Admitting Phy: 19:25 Dr. Polo Perez at 19:00. Dr. Mcknight at 19:15. Impression Primary Impression: Sepsis Qualified Codes: A41.9 - Sepsis, unspecified organism Additional Impressions: UTI (urinary tract infection) Qualified Codes: N39.0 - Urinary tract infection, site not specified Small bowel obstruction Disposition: ADMITTED INPATIENT Condition: Improved Admissions Decision to Admit Reason: Admit from ER (General) Decision to Admit/Date: May 12, 2018 Time/Decision to Admit Time: 16:30 Departure-Patient Inst. Referrals: MIRIAM NUÑEZ MD (PCP/Family) Primary Care Physician ANDI MCKENZIE MD May 12, 2018 19:47
--- NOTE | 2018-05-12 19:48 | Consultation ---
History of Present Illness History of Present Illness Patient Consulted On(mark/time) 05/12/18 19:42 Time Seen by Provider: 19:01 History of Present Illness Surgery asked to consult regarding PSBO, sepsis, venous insufficiency, and abdominal pain. Pt is a 32 yo male with a very complex history; who recently spent 6 months at [facility]. He came in from residential because of diaphoresis, tachycardia and complaints of pain. Last year he had septic shock secondary to a bowel issue and now has ostomy (he is unsure if it is colon or small bowel). He describes abdominal pain as constant crampy and 10 out of 10. He also complains of nausea, abdominal distention, and weakness. He has history of NECKTIE MAKER shunt, spina bifida and paraplegia below the knees because of the spina bifida. He has continued to have good output from the ostomy. Pain is all over the abdomen and not really radiating anywhere. Allergies and Home Medications Allergies Coded Allergies: latex (Verified Allergy, Unknown, 03/31/17) Patient Home Medication List Home Medication List Reviewed: Yes Past Jltlhop-Khpejz-Sksdbh Hx Patient Social History Alcohol Use: Occasionally Uses Recreational Drug Use: No Smoking Status: Never a Smoker Recent Foreign Travel: No Contact w/Someone Who Travel: No Recent Infectious Disease Expo: No Immunizations Up To Date Tetanus Booster (TDap): Unknown PED Vaccines UTD: Yes Surgeries History of Surgeries: Yes (colostomy) Surgeries: Abdominal, Brain Shunt Respiratory History of Respiratory Disorde: Yes Respiratory Disorders: Asthma Cardiovascular History of Cardiac Disorders: Yes Cardiac Disorders: Hypertension Neurological History of Neurological Disord: Yes (spina bifida, NECKTIE MAKER shunt) Genitourinary History of Genitourinary Disor: Yes Gastrointestinal History of Gastrointestinal Di: Yes Gastrointestinal Disorders: Abdominal Hernia Musculoskeletal History of Musculoskeletal Dis: Yes Endocrine History of Endocrine Disorders: Yes Endocrine Disorders: Diabetes, Non-Insulin dep HEENT History of HEENT Disorders: No Cancer History of Cancer: No Psychosocial History of Psychiatric Problem: Yes Behavioral Health Disorders: Depression Family Medical History Significant Family History: Other Conditions/Hx (Sister has thyroid dz) Review of Systems-General Constitutional: chills, diaphoresis, malaise, weakness EENTM: No blurred vision, No double vision, No mouth pain, No mouth swelling, No epistaxis, No throat swelling Respiratory: No cough, No dyspnea on exertion, No hemoptysis, No short of breath Cardiovascular: No chest pain, No edema, No palpitations Gastrointestinal: abdominal pain, diarrhea; No jaundice; nausea; No vomiting Genitourinary: other (pt has suprapubic with heavy sediment, no gross blood seen) Musculoskeletal: back pain, joint pain, muscle stiffness, muscle twitching, muscle weakness Skin: No change in color, No change in hair/nails Psychiatric/Neurological: Denies Anxiety; Depressed, Headache, Other ( paraplegia below the knee) Other pt denies any abnormal bruising or bleeding Physical Exam-General Problems Physical Exam Vital Signs Vital Signs - First Documented 05/12/18 16:22 Temp 99.2 Pulse 137 Resp 20 B/P (MAP) 140/100 (113) Pulse Ox 96 O2 Delivery Room Air Capillary Refill : Less Than 3 Seconds General Appearance: moderate distress, obese Eyes: Bilateral Eye PERRL, Bilateral Eye EOMI HEENT: PERRL/EOMI, pharynx normal; No scleral icterus (R), No scleral icterus ( L); other (pt has multiple scars on his scalp) Neck: supple, normal inspection; No thyromegaly Respiratory: chest non-tender, lungs clear, normal breath sounds, no respiratory distress, no accessory muscle use Cardiovascular: no murmur, tachycardia Gastrointestinal: abnormal bowel sounds, distended, guarding (voluntary), tenderness (diffusely), hernia (large abdominal ventral/incisional), other (pt has large scar in midline from previous surgery) Neurologic/Psychiatric: line tester II-XII nml as tested, alert, normal mood/affect, oriented x 3, motor weakness, sensory deficit Skin: normal color, warm/dry Lymphatic: no adenopathy (neck, axilla or groin) Data Review Labs Laboratory Tests 05/12/18 16:32: White Blood Count 16.7H, Red Blood Count 5.42, Hemoglobin 15.4, Hematocrit 46, Mean Corpuscular Volume 84, Mean Corpuscular Hemoglobin 28, Mean Corpuscular Hemoglobin Concent 34, Red Cell Distribution Width 14.9H, Platelet Count 376, Mean Platelet Volume 8.7, Neutrophils (%) (Auto) 84H, Lymphocytes (%) (Auto) 9L , Monocytes (%) (Auto) 6, Eosinophils (%) (Auto) 2, Basophils (%) (Auto) 0, Neutrophils # (Auto) 14.0H, Lymphocytes # (Auto) 1.5, Monocytes # (Auto) 0.9, Eosinophils # (Auto) 0.3, Basophils # (Auto) 0.0, Neutrophils % (Manual) 67, Lymphocytes % (Manual) 8, Monocytes % (Manual) 3, Eosinophils % (Manual) 1, Basophils % (Manual) 0, Band Neutrophils 21, Blood Morphology Comment NORMAL, Prothrombin Time 12.2, INR Comment 0.9, Activated Partial Thromboplast Time 31, Sodium Level 138, Potassium Level 4.7, Chloride Level 102, Carbon Dioxide Level 23, Anion Gap 13, Blood Urea Nitrogen 15, Creatinine 0.94, Estimat Glomerular Filtration Rate > 60, BUN/Creatinine Ratio 16, Glucose Level 109H, Lactic Acid Level 2.44*H, Calcium Level 11.0H, Corrected Calcium , Total Bilirubin 0.3, Aspartate Amino Transf (AST/SGOT) 70H, Alanine Aminotransferase (ALT/SGPT) 101H , Alkaline Phosphatase 139H, Total Protein 9.1H, Albumin 4.8H 05/12/18 17:52: Urine Color AMBERH, Urine Clarity VERY CLOUDYH, Urine pH 8, Urine Specific Royal 1.010L, Urine Protein 4+, Urine Glucose (UA) NEGATIVE, Urine Ketones NEGATIVE, Urine Nitrite POSITIVEH, Urine Bilirubin 1+H, Urine Urobilinogen NORMAL, Urine Leukocyte Esterase 3+H, Urine RBC (Auto) 5+H, Urine RBC >100H, Urine WBC 25-50H, Urine Crystals NONE, Urine Bacteria LARGEH, Urine Casts NONE, Urine Mucus NEGATIVE, Urine Culture Indicated NO Assessment/Plan Assessment/Plan Assessment/Plan PSBO Sepsis probably secondary to UTI Incarcerated hernia Spina Bifida with paraplegia below the knees Venous Insufficiency Pt is being admitted to the ICU, I helped direct placement of Left IJ triple lumen catheter. He is being started on ABX and NGT placement is ordered. He will be NPO, IV fluids, pain control and anti-emetics. CT showed PSBO with transition point in hernia; when I looked it looked like a segment of small bowel had distention on either end. Will monitor and hope decompression and bowel rest will allow this to resolve on its own. If he decompensates and it appears his abdomen is getting worse or if he doesn't improve after a few days then he may need exploration with reduction of hernia and running the small bowel. [facility]. BEN MORRIS DO May 12, 2018 19:48
--- OUTSIDE RECORDS SUMMARY | 2018-05-12 19:49 | XMS REPORT ---
Author Author HANSDAVEYA Organization [facility] Address [address] [place] [address] Care Team Providers Care Tow Feeder Name Role Phone ADELAIDEDAVEY DURANA Unavailable PROBLEMS Type Condition ICD9-CM Code [id number] Code Onset Dates Condition Status SNOMED Code Problem Anxiety F41.9 Active 42121849 Problem Mild episode of recurrent major depressive disorder F33.0 Active 072669756 Problem Mild neurocognitive disorder G31.84 Active 095076154 Problem Depressive disorder, not elsewhere classified F32.9 Active 97993506 ALLERGIES Substance Reaction Event Type Date Status Latex hives Non Drug Allergy Jan, Active ENCOUNTERS Encounter Location Date Diagnosis [facility] [id number] [place] [phone] May, [facility] [id number] [place] [phone] Jan, Mild episode of recurrent major depressive disorder F33.0 and Anxiety F41.9 [address] [place] [address] [place] [phone] Nov, Mild episode of recurrent major depressive disorder F33.0 and Anxiety F41.9 [place] [id number] [place] [phone] Oct, Depressive disorder, not elsewhere classified F32.9 and Mild neurocognitive disorder G31.84 IMMUNIZATIONS No Known Immunizations SOCIAL HISTORY Never Assessed REASON FOR VISIT f/u- AB/MA PLAN OF CARE Activity Details Follow Up May. Reason: VITAL SIGNS Heart Rate 124 bpm 2018-02-01 Respiratory Rate 20 2018-02-01 Blood pressure systolic 142 mmHg 2018-02-01 Blood pressure diastolic 80 mmHg 2018-02-01 MEDICATIONS Medication Instructions Dosage Frequency Start Date End Date Duration Status Ascorbic Acid 500 MG Orally 2 times a day 1 tablet 12h Active Lactobacillus - Active Diclofenac Sodium 1 % Active Aspirin 325 MG 1 tablet Active Hydrocodone-Acetaminophen 5-325 MG Orally every 6 hrs 1 tablet as needed 6h Active Nystatin 697210 UNIT/ML Active Reglan 10 MG Active Fluticasone Propionate (Inhal) 50 MCG/BLIST 1 spray in each nostril Active Levetiracetam 500 MG 3 capsules Active Metoprolol Tartrate 25 MG Orally Twice a day 1/2 tablet 12h Active Cymbalta 30 MG Orally Once a day caps (90mg) every morning 24h 30 days Active Preparation H 0.25-14-74.9 % Active Febuxostat 40 MG Orally Once a day 1 tablet 24h Active Allopurinol 100 MG Orally Once a day 1 tablet 24h Active Pataday 0.2 % Active Acetaminophen 500 MG Orally every 4 hrs 1 tablet as needed 4h Active Protonix 40 MG Active RESULTS No Results PROCEDURES Procedure Date Ordered Result Body Site [facility] VISIT ESTABLISHED PATIENT Feb 01, 2018 INSTRUCTIONS MEDICATIONS ADMINISTERED No Known Medications MEDICAL (GENERAL) HISTORY Type Description Date Medical History siezures Medical History CP unspecified Medical History spina bifida unspecified Medical History paraplegia unspecified Medical History HTN Medical History nontraumatic intracerebral hemorrhage intraventricular Surgical History multiple for repair spina bifida and other complications Hospitalization History multiple for surgeries, sepsis
--- OUTSIDE RECORDS SUMMARY | 2018-05-12 19:49 | XMS REPORT ---
Author Author HANS DEV Organization [facility] Address [address] [place] [address] Care Team Providers Care Operator Assistant I Cementing Name Role Phone ADELAIDEROGER DEV Unavailable PROBLEMS Type Condition ICD9-CM Code [id number] Code Onset Dates Condition Status SNOMED Code Problem Anxiety F41.9 Active 71155729 Problem Mild episode of recurrent major depressive disorder F33.0 Active 037767550 Problem Mild neurocognitive disorder G31.84 Active 264290026 Problem Depressive disorder, not elsewhere classified F32.9 Active 21680943 ALLERGIES Substance Reaction Event Type Date Status Latex hives Non Drug Allergy Nov, Active ENCOUNTERS Encounter Location Date Diagnosis [facility] [address] [place] [phone] Jan, [facility] [address] [place] [phone] Nov, Mild episode of recurrent major depressive disorder F33.0 and Anxiety F41.9 [facility] [id number], [place] [address] Oct, Depressive disorder, not elsewhere classified F32.9 and Mild neurocognitive disorder G31.84 IMMUNIZATIONS No Known Immunizations SOCIAL HISTORY Never Ass[facility] Activity Details Follow Up 2 Months Reason: VITAL SIGNS Weight 234.8 lbs 2017-11-29 Heart Rate 110 bpm 2017-11-29 Respiratory Rate 20 2017-11-29 Oximetry on room air:96 % 2017-11-29 Blood pressure systolic 132 mmHg 2017-11-29 Blood pressure diastolic 78 mmHg 2017-11-29 MEDICATIONS Medication Instructions Dosage Frequency Start Date End Date Duration Status Ascorbic Acid 500 MG Orally 2 times a day 1 tablet 12h Active Pataday 0.2 % Active Febuxostat 40 MG Orally Once a day 1 tablet 24h Active Acetaminophen 500 MG Orally every 4 hrs 1 tablet as needed 4h Active Zyrtec Allergy 10 MG Active Fluticasone Propionate (Inhal) 50 MCG/BLIST 1 spray in each nostril Active Preparation H 0.25-14-74.9 % Active Metoprolol Tartrate 25 MG Orally Twice a day 1/2 tablet 12h Active Melatonin 3 MG Active Calmoseptine 0.44-20.6 % Active Diclofenac Sodium 1 % Active Cymbalta 30 MG Orally Once a day 2 capsules every morning for two weeks then take 3 caps (90mg) every morning 24h 30 days Active Reglan 10 MG Active Lactobacillus - Active Stress Plus Zinc Active Aspirin 325 MG 1 tablet Active Hydrocodone-Acetaminophen 5-325 MG Orally every 6 hrs 1 tablet as needed 6h Active Nystatin 716791 UNIT/ML Active Protonix 40 MG Active Levetiracetam 500 MG 3 capsules Active RESULTS No Results PROCEDURES Procedure Date Ordered Result Body Site [facility] VISIT ESTABLISHED PATIENT November 29, 2017 INSTRUCTIONS MEDICATIONS ADMINISTERED No Known Medications MEDICAL (GENERAL) HISTORY Type Description Date Medical History siezures Medical History CP unspecified Medical History spina bifida unspecified Medical History paraplegia unspecified Medical History HTN Medical History nontraumatic intracerebral hemorrhage intraventricular Surgical History multiple for repair spina bifida and other complications Hospitalization History multiple for surgeries, sepsis
--- OUTSIDE RECORDS SUMMARY | 2018-05-12 19:49 | XMS REPORT ---
Author Author MARGARITA MENDOZA Organization [facility] Address [address] [place] [address] Care Team Providers Care Elevator Inspector Name Role Phone MARGARITA MENDOZA Unavailable PROBLEMS Type Condition ICD9-CM Code SAC84-QN Code Onset Dates Condition Status SNOMED Code Problem Anxiety F41.9 Active 53185489 Problem Mild episode of recurrent major depressive disorder F33.0 Active 942104376 Problem Mild neurocognitive disorder G31.84 Active 192999746 Problem Depressive disorder, not elsewhere classified F32.9 Active 90355857 ALLERGIES No Information ENCOUNTERS Encounter Location Date Diagnosis [id number], [place] [address] Jan, [facility] [address] [place] [phone] Nov, Mild episode of recurrent major depressive disorder F33.0 and Anxiety F41.9 [id number] [place] [phone] Oct, Depressive disorder, not elsewhere classified F32.9 and Mild neurocognitive disorder G31.84 IMMUNIZATIONS No Known Immunizations SOCIAL HISTORY Never Assessed REASON FOR VISIT intake PLAN OF CARE VITAL SIGNS MEDICATIONS Unknown Medications RESULTS No Results PROCEDURES Procedure Date Ordered Result Body Site [facility] VISIT MENTAL HEALTH NEW PT November 04, 2017 Psych diagnostic evaluation, new patient November 04, 2017 INSTRUCTIONS MEDICATIONS ADMINISTERED No Known Medications MEDICAL (GENERAL) HISTORY Type Description Date Medical History siezures Medical History CP unspecified Medical History spina bifida unspecified Medical History paraplegia unspecified Medical History HTN Medical History nontraumatic intracerebral hemorrhage intraventricular Surgical History multiple for repair spina bifida and other complications Hospitalization History multiple for surgeries, sepsis
--- OUTSIDE RECORDS SUMMARY | 2018-05-12 19:59 | XMS REPORT | CCD ---
Author Author Angi Rodriguez Organization [facility] Address [address] [place] [address] Phone Care Team Providers Care Chartered Accountant Name Role Phone PP Unavailable CCM Unavailable Summary Purpose Interface Exchange Insurance Providers Payer name Policy type / Coverage type Covered libertarian ID Effective Begin Date Effective End Date WPS Medicare Part B Medicare Part B [id number] Unknown Unknown [employer] - Medicare Part B [id number] Unknown Unknown Family history Father Diagnosis Age At Onset Hyperlipidemia Unknown Hypertension Unknown Social History Social History Element Codes Description Effective Dates Living arrangements Unknown [facility] 11/05/2017 Marital status Unknown Alondra 04/07/2016 Number of children Unknown 0 04/07/2016 Employment Unknown Currently unemployed 04/07/[address]: 253989996 Never smoker 04/07/[address]: 175817654 Never drinks alcohol 04/07/2016 Allergies, Adverse Reactions, Alerts Substance Reaction Codes Entered Date Inactivated Date Status Latex Unknown 04/07/2016 No Inactive Date Active * NO KNOWN DRUG ALLERGIES Unknown 04/07/2016 No Inactive Date Active Past Medical History Illness Codes Condition Status Onset Date Resolved Date Essential (primary) hypertension ICD-9: 401.1 ICD-10: I10 Active 09/30/2016 Unknown Major depressive disorder, single episode, moderate ICD-9: 296.22 ICD-10: F32.1 Active 09/30/2016 Unknown Muscle spasm of back ICD-9: 724.8 ICD-10: M62.830 Active 02/10/2017 Unknown Other headache syndrome ICD-9: 339.89 ICD-10: G44.89 Active 12/07/2017 Unknown Pressure ulcer of contiguous site of back, buttock and hip , stage 3 ICD-9: 707.09 ICD-10: L89.43 Active 10/14/2017 Unknown Other generalized epilepsy and epileptic syndromes, not intractable, without status epilepticus ICD -9: 345.00 ICD-10: G40.409 Active 10/14/2017 Unknown Slow transit constipation ICD-9: 564.01 ICD-10: K59.01 Active 04/06/2016 Unknown Umbilical hernia without obstruction or gangrene ICD-9: 553.1 ICD-10: K42.9 Active 03/23/2017 Unknown Cervicalgia ICD-9: 723.1 ICD-10: M54.2 Active 02/10/2017 Unknown Other insomnia ICD-9: 327.09 ICD-10: G47.09 Active 03/04/2017 Unknown Pain in thoracic spine ICD-9: 724.1 ICD-10: M54.6 Active 02/10/2017 Unknown Hereditary lymphedema ICD-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 ICD-10: Q82.0 Active 04/06/2016 Unknown Lumbar spina bifida without hydrocephalus ICD-9: 741.93 ICD-10: Q05.7 Active 04/06/2016 Unknown Bicipital tendinitis, left shoulder ICD-9: 726.12 ICD-10: M75.22 Active 07/23/2016 Unknown Pain in left wrist ICD -9: 719.43 ICD-10: M25.532 Active 06/17/2016 Unknown Pain in right wrist ICD-9: 719.43 ICD-10: M25.531 Active 07/23/2016 Unknown Pain in left shoulder ICD-9: 719.41 ICD-10: M25.512 Active 06/17/2016 Unknown Rash and other nonspecific skin eruption ICD-9: 782.1 ICD-10: R21 Active 05/05/2016 Unknown Essential (primary) hypertension ICD-9: 401.9 ICD-10: I10 Active 04/06/2016 Unknown Problems Condition Codes Effective Dates Condition Status Essential (primary) hypertension ICD-9: 401.1 ICD-10: I10 09/30/2016 Active Major depressive disorder, single episode, moderate ICD-9: 296.22 ICD-10: F32.1 09/30/2016 Active Muscle spasm of back ICD-9: 724.8 ICD-10: M62.830 02/10/2017 Active Other headache syndrome ICD-9: 339.89 ICD-10: G44.89 12/07/2017 Active Pressure ulcer of contiguous site of back, buttock and hip , stage 3 ICD-9: 707.09 ICD-10: L89.43 10/14/2017 Active Other generalized epilepsy and epileptic syndromes, not intractable, without status epilepticus ICD -9: 345.00 ICD-10: G40.409 10/14/2017 Active Slow transit constipation ICD-9: 564.01 ICD-10: K59.01 04/06/2016 Active Umbilical hernia without obstruction or gangrene ICD-9: 553.1 ICD-10: K42.9 03/23/2017 Active Cervicalgia ICD-9: 723.1 ICD-10: M54.2 02/10/2017 Active Other insomnia ICD-9: 327.09 ICD-10: G47.09 03/04/2017 Active Pain in thoracic spine ICD-9: 724.1 ICD-10: M54.6 02/10/2017 Active Hereditary lymphedema ICD-9: 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.0 ICD-10: Q82.0 04/06/2016 Active Lumbar spina bifida without hydrocephalus ICD-9: 741.93 ICD-10: Q05.7 04/06/2016 Active Bicipital tendinitis, left shoulder ICD-9: 726.12 ICD-10: M75.22 07/23/2016 Active Pain in left wrist ICD -9: 719.43 ICD-10: M25.532 06/17/2016 Active Pain in right wrist ICD-9: 719.43 ICD-10: M25.531 07/23/2016 Active Pain in left shoulder ICD-9: 719.41 ICD-10: M25.512 06/17/2016 Active Rash and other nonspecific skin eruption ICD-9: 782.1 ICD-10: R21 05/05/2016 Active Essential (primary) hypertension ICD-9: 401.9 ICD-10: I10 04/06/2016 Active Medications Medication Codes Instructions Start Date Stop Date Status Fill Instructions hydrocodone 5 mg-acetaminophen 325 mg tablet RxNorm: 722001 1-2 Tablet(s) PO Q6 as needed 03/08/2018 07/05/2018 Active hydrocodone 5 mg-acetaminophen 325 mg tablet RxNorm: 500318 1-2 Tablet(s) PO Q6 as needed 12/30/2017 03/07/2018 Inactive Cymbalta 30 mg capsule,delayed release RxNorm: 746172 3 Capsule(s) PO daily 12/07/2017 01/31/2018 Inactive Protonix 40 mg tablet,delayed release RxNorm: 179084 1 Tablet(s) PO daily 10/14/2017 05/11/2018 Active febuxostat 40 mg tablet RxNorm: 313815 1 Tablet(s) PO daily 05/11/2018 Active levetiracetam 1,000 mg tablet RxNorm: 985214 1 Tablet(s) PO BID 10/14/2017 05/11/2018 Active levetiracetam 500 mg tablet RxNorm: 461679 3 Tablet(s) PO BID 10/14/2017 11/12/2017 Inactive aspirin 325 mg tablet RxNorm: 634571 1 Tablet(s) PO daily 201705/11/2018 Active metoprolol tartrate 25 mg tablet RxNorm: 220454 1/2 Tablet(s) PO BID 10/14/2017 11/12/2017 Inactive hydrocodone 5 mg-acetaminophen 325 mg tablet RxNorm: 067887 1 Tablet(s) PO QID as needed 10/14/2017 12/29/2017 Inactive Reglan 10 mg tablet RxNorm: 046536 1 Tablet(s) PO QID 201711/12/2017 Inactive fluoxetine 20 mg tablet RxNorm: 986871 1 Tablet(s) PO daily 10/14/2017 Inactive Cymbalta 30 mg capsule,delayed release RxNorm: 082001 1 Capsule(s) PO daily 10/14/2017 12/06/2017 Inactive Zofran 4 mg tablet RxNorm: 163991 1 Tablet(s) PO TID as needed 09/20/2017 09/29/2017 Inactive hydrocodone 5 mg-acetaminophen 325 mg tablet RxNorm: 730948 1-2 Tablet(s) PO Q6 as needed 09/20/2017 10/12/2017 Inactive naproxen 500 mg tablet RxNorm: 131975 TAKE ONE TABLET BY MOUTH TWICE DAILY NEEDED 03/29/2017 09/24/2017 Inactive Generic For:*NAPROSYN 500 MG TABLET 2016 2:53:48 PM Prozac 10 mg capsule RxNorm: 435357 1 Capsule(s) PO daily 03/2910/13/2017 Inactive hydrochlorothiazide 12.5 mg capsule RxNorm: 468065 1 Capsule(s) PO daily 03/12/2017 04/10/2017 Inactive hydrochlorothiazide 12.5 mg capsule RxNorm: 518240 1 Capsule(s) PO daily 03/12/2017 03/11/2017 Inactive lisinopril 40 mg tablet RxNorm: 938615 1 Tablet(s) PO daily 03/07/2017 Inactive lisinopril 40 mg tablet RxNorm: 564320 1 Tablet(s) PO daily 04/06/2017 Inactive melatonin 3 mg tablet RxNorm: 919190 1 Tablet(s) PO QHS as needed insomnia 03/05/2017 No Stop Date Active Voltaren 1 % topical gel RxNorm: 416512 1 Application TOP QID as needed et at HS 02/23/2017 05/23/2017 Inactive Voltaren 1 % topical gel RxNorm: 850509 1 Application TOP QID as needed et at HS 02/03/2017 02/22/2017 Inactive lisinopril 20 mg tablet RxNorm: 059582 TAKE ONE TABLET BY MOUTH EVERY DAY 01/14/2017 03/05/2017 Inactive Generic For:*PRINIVIL 20 MG TABLET 01/13/2017 2:26: 55 PM lisinopril 20 mg tablet RxNorm: 900039 1 Tablet(s) PO daily 06/201601/13/2017 Inactive lisinopril 10 mg tablet RxNorm: 062446 1 Tablet(s) PO TAKE ONE TABLET BY MOUTH ONE TIME DAILY 11/27/2016 12/14/2016 Inactive Generic For:PRINIVIL 5 MG TABLET pt is out of medication 11/18/2016 3:16:14 PM lisinopril 5 mg tablet RxNorm: 346401 TAKE ONE TABLET BY MOUTH ONE TIME DAILY 11/24/2016 11/26/2016 Inactive Generic For:PRINIVIL 5 MG TABLET pt is out of medication 11/18/2016 3:16:14 PM Prozac 10 mg capsule RxNorm: 058726 1 Capsule(s) PO daily 10/2303/21/2017 Inactive Voltaren 1 % topical gel RxNorm: 887468 1 Application TOP QID as needed et at HS 10/16/2016 02/02/2017 Inactive Prozac 10 mg capsule RxNorm: 746151 1 Capsule(s) PO daily 10/0110/22/2016 Inactive Voltaren 1 % topical gel RxNorm: 881271 1 Application TOP QID as needed et at HS 09/23/2016 10/15/2016 Inactive Voltaren 1 % topical gel RxNorm: 361477 1 Application TOP QID as needed et at HS 09/23/2016 09/22/2016 Inactive Voltaren 1 % topical gel RxNorm: 370710 1 Application TOP QID as needed et at HS 09/23/2016 09/22/2016 Inactive Flonase Allergy Relief 50 mcg/actuation nasal spray, suspension RxNorm: 4917180 1 [place] NASAL each nostril BID as needed 09/11/2016 02/07/2017 Inactive Flonase Allergy Relief 50 mcg/actuation nasal spray, suspension RxNorm: 6862297 1 [place] NASAL each nostril BID as needed 09/11/2016 09/10/2016 Inactive lisinopril 5 mg tablet RxNorm: 106858 TAKE ONE TABLET BY MOUTH ONE TIME DAILY -LOT : for 90 days 08/25/2016 11/22/2016 Inactive naproxen 500 mg tablet RxNorm: 793682 1 Tablet(s) PO BID as needed 06/17/2016 03/28/2017 Inactive Zithromax Z-Robel 250 mg tablet RxNorm: 850203 1 Tablet(s) PO UD 06/05/2016 07/22/2016 Inactive z pack as directed- patient at [facility] Miralax 17 gram/dose oral powder RxNorm: 443840 1 PO BID 2016 No Stop Date Active Bactrim DS 800 mg-160 mg tablet RxNorm: 663468 1 Tablet(s) PO BID 05/06/2016 05/15/2016 Inactive Zithromax Z-Robel 250 mg tablet RxNorm: 905979 1 Tablet(s) PO daily 04/08/2016 04/12/2016 Inactive nystatin 100,000 unit/gram topical cream RxNorm: 027080 1 Gram(s) TOP BID No Start Date Active Tylenol Extra Strength 500 mg tablet RxNorm: 685361 Tablet(s) PO as needed No Start Date Active lactobacillus acidophilus (bulk) RxNorm: 6205 miscellaneous No Start Date Active Zyrtec 10 mg tablet RxNorm: 8895494 1 Tablet(s) PO daily No Start Date Active Pataday 0.2 % eye drops RxNorm: 3646690 1 Drop(s) ophthalmic (eye) daily No Start Date Active Ginkoba M-E oral RxNorm: 475706 oral No Start Date Active Vitamin C 500 mg tablet RxNorm: 894416 1 Tablet(s) PO daily No Start Date Active Calmoseptine 0.44 %-20.6 % topical ointment RxNorm: 048037 1 Application TOP QID as needed No Start Date Active Miralax 17 gram/dose oral powder RxNorm: 280191 1 PO daily No Start Date 05/28/2016 Inactive Flonase 50 mcg/actuation nasal spray,suspension RxNorm: 9813316 1 [place] NASAL BID No Start Date 09/11/2016 Inactive omeprazole 20 mg capsule,delayed release RxNorm: 036168 1 Capsule(s) PO daily No Start Date 10/13/2017 Inactive lisinopril 5 mg tablet RxNorm: 047070 1 Tablet(s) PO daily No Start Date 08/24/2016 Inactive Zofran 4 mg tablet RxNorm: 244617 1 Tablet(s) PO TID as needed No Start Date 09/19/2017 Inactive Zithromax Z-Robel oral RxNorm: oral No Start Date 04/07/2016 Inactive Zithromax Z-Robel 250 mg tablet RxNorm: 306847 1 Tablet(s) PO UD No Start Date 06/04/2016 Inactive z pack as directed- patient at [facility] Medication Administered No Medication Administered data Immunizations No Immunization data Assessments Condition Codes Effective Dates Muscle spasm of back ICD-10: M62.830 ICD-9: 724.8 12/07/2017 Other headache syndrome ICD-10: G44.89 ICD-9: 339.89 12/07/2017 Major depressive disorder, single episode, moderate ICD-10: F32.1 ICD-9: 296.22 12/07/2017 Essential (primary) hypertension ICD-10: I10 ICD-9: 401.1 12/07/2017 Pressure ulcer of contiguous site of back, buttock and hip, stage 3 ICD-10: L89.43 ICD-9: 707.09 11/04/2017 Other generalized epilepsy and epileptic syndromes, not intractable, without status epilepticus ICD-10: G40.409 ICD-9: 345.00 10/14/2017 Slow transit constipation ICD-10: K59.01 ICD-9: 564.01 10/14/2017 Umbilical hernia without obstruction or gangrene ICD-10: K42.9 ICD-9: 553.1 03/23/2017 Pain in thoracic spine ICD-10: M54.6 ICD-9: 724.1 03/04/2017 Cervicalgia ICD-10: M54.2 ICD-9: 723.1 03/04/2017 Other insomnia ICD-10: G47.09 ICD-9: 327.09 03/04/2017 Lumbar spina bifida without hydrocephalus ICD-10: Q05.7 ICD-9: 741.93 12/16/2016 Major depressive disorder, single episode, mild ICD-10: F32.0 ICD-9: 296.21 09/30/2016 Bicipital tendinitis, left shoulder ICD-10: M75.22 ICD-9: 726.12 07/23/2016 Pain in right wrist ICD-10: M25.531 ICD-9: 719.43 07/23/2016 Pain in left wrist ICD-10: M25.532 ICD-9: 719.43 07/23/2016 Pain in left shoulder ICD-10: M25.512 ICD-9: 719.41 06/17/2016 Rash and other nonspecific skin eruption ICD-10: R21 ICD-9: 782.1 05/06/2016 Hereditary lymphedema ICD-10: Q82.0 ICD-9: 757.0 04/07/2016 Essential (primary) hypertension ICD-10: I10 ICD-9: 401.9 04/07/2016 Reason For Visit Reason For Visit Effective Dates Notes hypertension 12/07/2017 hypertension 11/04/2017 Hospital Follow Up 10/14/2017 hernia 03/23/2017 back pain 03/04/2017 back pain 02/10/2017 hypertension 12/16/2016 headache 09/30/2016 shoulder pain 07/23/2016 muscle weakness 06/17/2016 pain rash 05/06/2016 hypertension 04/07/2016 Results Observation Observation Code Item Item Code Result Date Metabolic Ord15 NA 138 mEq/L 12/27/2017 Metabolic Ord15 K 4.4 mEq/L 12/27/2017 Metabolic Ord15 CL 106 mEq/L 12/27/2017 Metabolic Ord15 CO2 24.0 mEq/L 12/27/2017 Metabolic Ord15 GLUCOSE 103 mg/dL 12/27/2017 Metabolic Ord15 BUN 19 mg/dL 12/27/2017 Metabolic Ord15 Creat 0.6 mg/dL 12/27/2017 Metabolic Ord15 B/C Ratio 31.7 Ratio 12/27/2017 Metabolic Ord15 eGFR 168 ml/min/1.73m2 12/27/2017 Metabolic Ord15 Osmo 278 mOsmo 12/27/2017 Metabolic Ord15 ANION GAP 12 12/27/2017 Metabolic Ord15 CALCIUM 9.4 mg/dL 12/27/2017 Comp Metabolic Lkl028 NA 142 mEq/L 10/15/2017 Comp Metabolic Mwq751 K 4.2 mEq/L 10/15/2017 Comp Metabolic Osl662 CL 107 mEq/L 10/15/2017 Comp Metabolic Nss846 CO2 27.0 mEq/L 10/15/2017 Comp Metabolic Iqq879 ANION GAP 12 10/15/2017 Comp Metabolic Hvq707 GLUCOSE 86 mg/dL 10/15/2017 Comp Metabolic Uyy606 Creat 0.6 mg/dL 10/15/2017 Comp Metabolic Wps435 eGFR 179 ml/min/1.73m2 10/15/2017 Comp Metabolic Gsp421 BUN 13 mg/dL 10/15/2017 Comp Metabolic Fgw694 B/C Ratio 22.8 Ratio 10/15/2017 Comp Metabolic Bqd163 CALCIUM 9.6 mg/dL 10/15/2017 Comp Metabolic Qxg534 ALK PHOS 158 U/L 10/15/2017 Comp Metabolic Nad240 AST(SGOT) 15 U/L 10/15/2017 Comp Metabolic Onl787 ALT(SGPT) 29 U/L 10/15/2017 Comp Metabolic Cqf993 BILI T 0.2 mg/dL 10/15/2017 Comp Metabolic Yhx000 ALBUMIN 3.5 g/dL 10/15/2017 Comp Metabolic Wdg621 TPRO 6.9 g/dL 10/15/2017 Comp Metabolic Awz716 GLOB 3.4 g/dL 10/15/2017 Comp Metabolic Hcc161 A/G Ratio 1.1 Ratio 10/15/2017 Comp Metabolic Cyl563 Osmo 283 mOsmo 10/15/2017 Cbc With Differential Ord2 WBC 5.52 K/ul 10/15/2017 Cbc With Differential Ord2 RBC 4.23 M/ul 10/15/2017 Cbc With Differential Ord2 HGB 12.0 g/dl 10/15/2017 Cbc With Differential Ord2 Neut% 54.8 % 10/15/2017 Cbc With Differential Ord2 HCT 36.9 % 10/15/2017 Cbc With Differential Ord2 MCV 87.2 fl 10/15/2017 Cbc With Differential Ord2 Lymph% 32.2 % 10/15/2017 Cbc With Differential Ord2 MCH 28.4 pg 10/15/2017 Cbc With Differential Ord2 [place]% 8.3 % 10/15/2017 Cbc With Differential Ord2 MCHC 32.5 pg 10/15/2017 Cbc With Differential Ord2 Eos% 4.3 % 10/15/2017 Cbc With Differential Ord2 PLT 281 K/ul 10/15/2017 Cbc With Differential Ord2 Baso% 0.4 % 10/15/2017 Cbc With Differential Ord2 RDW 13.8 % 10/15/2017 Cbc With Differential Ord2 Neut ABS# 3.02 K/ul 10/15/2017 Cbc With Differential Ord2 Lymph ABS# 1.78 K/ul 10/15/2017 Cbc With Differential Ord2 [place] ABS# 0.5 K/ul 10/15/2017 Cbc With Differential Ord2 Eos ABS# 0.2 K/ul 10/15/2017 Cbc With Differential Ord2 Baso ABS# 0.0 K/ul 10/15/2017 Tsh Ord6 TSH (3rd IS) 2.24 uIU/mL 10/15/2017 Magnesium Ord90 Mag 1.6 mg/dL 09/17/2017 Renal Jwm530 NA 144 mEq/L 09/17/2017 Renal Fhu497 K 3.6 mEq/L 09/17/2017 Renal Pts370 CL 104 mEq/L 09/17/2017 Renal Amf097 CO2 28.0 mEq/L 09/17/2017 Renal Xjw467 ANION GAP 16 09/17/2017 Renal Qgr206 Osmo 289 mOsmo 09/17/2017 Renal Tst291 GLUCOSE 115 mg/dL 09/17/2017 Renal Vfj648 BUN 15 mg/dL 09/17/2017 Renal Yue286 Creat 0.9 mg/dL 09/17/2017 Renal Sui926 eGFR 100 ml/min/1.73m2 09/17/2017 Renal Orp975 B/C Ratio 16.0 Ratio 09/17/2017 Renal Iwi732 CALCIUM 10.4 mg/dL 09/17/2017 Renal Avx420 PHOS 3.9 mg/dL 09/17/2017 Renal Ilp123 ALBUMIN 4.3 g/dL 09/17/2017 Cbc With Differential Ord2 WBC 8.22 K/ul 09/17/2017 Cbc With Differential Ord2 RBC 4.86 M/ul 09/17/2017 Cbc With Differential Ord2 HGB 13.9 g/dl 09/17/2017 Cbc With Differential Ord2 Neut% 63.0 % 09/17/2017 Cbc With Differential Ord2 HCT 42.9 % 09/17/2017 Cbc With Differential Ord2 MCV 88.3 fl 09/17/2017 Cbc With Differential Ord2 Lymph% 22.5 % 09/17/2017 Cbc With Differential Ord2 MCH 28.6 pg 09/17/2017 Cbc With Differential Ord2 [place]% 9.9 % 09/17/2017 Cbc With Differential Ord2 MCHC 32.4 pg 09/17/2017 Cbc With Differential Ord2 Eos% 4.4 % 09/17/2017 Cbc With Differential Ord2 PLT 332 K/ul 09/17/2017 Cbc With Differential Ord2 Baso% 0.2 % 09/17/2017 Cbc With Differential Ord2 RDW 14.3 % 09/17/2017 Cbc With Differential Ord2 Neut ABS# 5.18 K/ul 09/17/2017 Cbc With Differential Ord2 Lymph ABS# 1.85 K/ul 09/17/2017 Cbc With Differential Ord2 [place] ABS# 0.8 K/ul 09/17/2017 Cbc With Differential Ord2 Eos ABS# 0.4 K/ul 09/17/2017 Cbc With Differential Ord2 Baso ABS# 0.0 K/ul 09/17/2017 Comp Metabolic Kaz006 NA 138 mEq/L 02/04/2017 Comp Metabolic Bph950 K 4.5 mEq/L 02/04/2017 Comp Metabolic Elt424 CL 98 mEq/L 02/04/2017 Comp Metabolic Plh097 CO2 30.0 mEq/L 02/04/2017 Comp Metabolic Sgw914 ANION GAP 15 02/04/2017 Comp Metabolic Vtw983 GLUCOSE 99 mg/dL 02/04/2017 Comp Metabolic Vcd311 Creat 0.6 mg/dL 02/04/2017 Comp Metabolic Rgc252 eGFR 183 ml/min/1.73m2 02/04/2017 Comp Metabolic Lxv037 BUN 11 mg/dL 02/04/2017 Comp Metabolic Lby253 B/C Ratio 19.6 Ratio 02/04/2017 Comp Metabolic Bzb153 CALCIUM 9.5 mg/dL 02/04/2017 Comp Metabolic Lkh152 ALK PHOS 59 U/L 02/04/2017 Comp Metabolic Pxa840 AST(SGOT) 14 U/L 02/04/2017 Comp Metabolic Shp601 ALT(SGPT) 15 U/L 02/04/2017 Comp Metabolic Cum425 BILI T 0.3 mg/dL 02/04/2017 Comp Metabolic Ozv704 ALBUMIN 4.0 g/dL 02/04/2017 Comp Metabolic Nyn657 TPRO 7.0 g/dL 02/04/2017 Comp Metabolic Oyf378 GLOB 3.0 g/dL 02/04/2017 Comp Metabolic Dgc654 A/G Ratio 1.4 Ratio 02/04/2017 Comp Metabolic Enj308 Osmo 275 mOsmo 02/04/2017 Review of Systems System Result Effective Dates Constitutional recent illness 12/07/2017 Constitutional No chills 12/07/2017 Constitutional No diaphoresis 12/07/2017 Constitutional No fever 12/07/2017 Eyes No blindness 12/07/2017 Ears/Nose/Throat/Neck No nasal allergies 12/07/2017 Ears/Nose/Throat/Neck No nasal discharge 12/07/2017 Cardiovascular No chest pain/pressure Cardiovascular No dyspnea 12/07/2017 Respiratory No chest congestion 2017 Respiratory No cough 12/07/2017 Respiratory No dyspnea 12/07/2017 Gastrointestinal abdominal pain 2017 Gastrointestinal No constipation 2017 Gastrointestinal No diarrhea 12/07/2017 Gastrointestinal No nausea 12/07/2017 Gastrointestinal No vomiting 12/07/2017 Neurologic No alteration of consciousness 12/07/2017 Neurologic No mental status change 2017 Psychiatric No anxiety 12/07/2017 Psychiatric depression 12/07/2017 Musculoskeletal back pain 12/07/2017 Neurologic headache 12/07/2017 Constitutional recent illness 11/04/2017 Constitutional No chills 11/04/2017 Constitutional No diaphoresis 11/04/2017 Constitutional No fever 11/04/2017 Eyes No blindness 11/04/2017 Ears/Nose/Throat/Neck No nasal allergies 11/04/2017 Ears/Nose/Throat/Neck No nasal discharge 11/04/2017 Cardiovascular No chest pain/pressure Cardiovascular No dyspnea 11/04/2017 Respiratory No chest congestion 2017 Respiratory No cough 11/04/2017 Respiratory No dyspnea 11/04/2017 Gastrointestinal abdominal pain 2017 Gastrointestinal No constipation 2017 Gastrointestinal No diarrhea 11/04/2017 Gastrointestinal No nausea 11/04/2017 Gastrointestinal No vomiting 11/04/2017 Neurologic No alteration of consciousness 11/04/2017 Neurologic No mental status change 2017 Psychiatric No anxiety 11/04/2017 Psychiatric depression 11/04/2017 Constitutional recent illness 10/14/2017 Constitutional No chills 10/14/2017 Constitutional No diaphoresis 10/14/2017 Constitutional No fever 10/14/2017 Eyes No blindness 10/14/2017 Ears/Nose/Throat/Neck No nasal allergies 10/14/2017 Ears/Nose/Throat/Neck No nasal discharge 10/14/2017 Cardiovascular No chest pain/pressure Cardiovascular No dyspnea 10/14/2017 Respiratory No chest congestion 2017 Respiratory No cough 10/14/2017 Respiratory No dyspnea 10/14/2017 Gastrointestinal abdominal pain 2017 Gastrointestinal No constipation 2017 Gastrointestinal No diarrhea 10/14/2017 Gastrointestinal No nausea 10/14/2017 Gastrointestinal No vomiting 10/14/2017 Neurologic No alteration of consciousness 10/14/2017 Neurologic No mental status change 2017 Psychiatric No anxiety 10/14/2017 Psychiatric depression 10/14/2017 Constitutional No recent illness 2016 Constitutional No chills 03/23/2017 Constitutional No diaphoresis 03/23/2017 Constitutional No fever 03/23/2017 Eyes No eye erythema 03/23/2017 Ears/Nose/Throat/Neck No nasal discharge 03/23/2017 Ears/Nose/Throat/Neck No nasal allergies 03/23/2017 Cardiovascular No chest pain/pressure 11/2016 Cardiovascular No dyspnea 03/23/2017 Respiratory No cough 03/23/2017 Respiratory No chest congestion 2016 Respiratory No dyspnea 03/23/2017 Gastrointestinal abdominal pain 2016 Gastrointestinal No constipation 2016 Gastrointestinal No diarrhea 03/23/2017 Gastrointestinal No vomiting 03/23/2017 Gastrointestinal No nausea 03/23/2017 Neurologic No alteration of consciousness 03/23/2017 Neurologic No mental status change 2016 Constitutional No recent illness 2016 Constitutional No chills 03/04/2017 Constitutional No diaphoresis 03/04/2017 Constitutional No fever 03/04/2017 Constitutional insomnia 03/04/2017 Eyes No eye erythema 03/04/2017 Ears/Nose/Throat/Neck No nasal discharge 03/04/2017 Ears/Nose/Throat/Neck No nasal allergies 03/04/2017 Cardiovascular No chest pain/pressure Cardiovascular No dyspnea 03/04/2017 Respiratory No cough 03/04/2017 Respiratory No chest congestion 2016 Respiratory No dyspnea 03/04/2017 Gastrointestinal No abdominal pain 2016 Gastrointestinal No constipation 2016 Gastrointestinal No diarrhea 03/04/2017 Gastrointestinal No vomiting 03/04/2017 Gastrointestinal No nausea 03/04/2017 Musculoskeletal back pain 03/04/2017 Musculoskeletal neck pain 03/04/2017 Dermatologic No rash 03/04/2017 Neurologic No alteration of consciousness 03/04/2017 Neurologic No mental status change 2016 Constitutional No recent illness 2016 Constitutional No chills 02/10/2017 Constitutional No fever 02/10/2017 Eyes No eye erythema 02/10/2017 Ears/Nose/Throat/Neck No nasal discharge 02/10/2017 Cardiovascular No chest pain/pressure Cardiovascular No dyspnea 02/10/2017 Respiratory No cough 02/10/2017 Respiratory No dyspnea 02/10/2017 Neurologic No alteration of consciousness 02/10/2017 Neurologic No mental status change 2016 Musculoskeletal back pain 02/10/2017 Musculoskeletal neck pain 02/10/2017 Constitutional No recent illness 2016 Constitutional No chills 12/16/2016 Constitutional No diaphoresis 12/16/2016 Constitutional No fever 12/16/2016 Eyes No eye discharge 12/16/2016 Eyes No eye erythema 12/16/2016 Cardiovascular No chest pain/pressure 06/2016 Respiratory No productive sputum 2016 Respiratory No cough 12/16/2016 Gastrointestinal No abdominal pain 2016 Dermatologic No rash 12/16/2016 Neurologic No alteration of consciousness 12/16/2016 Ears/Nose/Throat/Neck No nasal allergies 12/16/2016 Ears/Nose/Throat/Neck No nasal discharge 12/16/2016 Cardiovascular No dyspnea 12/16/2016 Respiratory No dyspnea 12/16/2016 Gastrointestinal No constipation 2016 Gastrointestinal No diarrhea 12/16/2016 Gastrointestinal No vomiting 12/16/2016 Gastrointestinal No nausea 12/16/2016 Neurologic No mental status change 2016 Constitutional No recent illness 2016 Constitutional No chills 09/30/2016 Constitutional No diaphoresis 09/30/2016 Constitutional No fever 09/30/2016 Eyes No eye erythema 09/30/2016 Ears/Nose/Throat/Neck No nasal allergies 09/30/2016 Ears/Nose/Throat/Neck No nasal discharge 09/30/2016 Cardiovascular No chest pain/pressure Cardiovascular No dyspnea 09/30/2016 Respiratory No cough 09/30/2016 Respiratory No dyspnea 09/30/2016 Gastrointestinal No abdominal pain 2016 Neurologic No alteration of consciousness 09/30/2016 Neurologic headache 09/30/2016 Neurologic No mental status change 2016 Psychiatric depression 09/30/2016 Psychiatric anxiety 09/30/2016 Constitutional No recent illness 2016 Constitutional No anorexia 07/23/2016 Constitutional No chills 07/23/2016 Constitutional No diaphoresis 07/23/2016 Constitutional No night sweats 2016 Constitutional No fever 07/23/2016 Constitutional No fatigue 07/23/2016 Constitutional No malaise 07/23/2016 Constitutional No insomnia 07/23/2016 Constitutional No weight loss 07/23/2016 Constitutional No weight gain 07/23/2016 Ears/Nose/Throat/Neck No dizziness 2016 Cardiovascular No chest pain/pressure 01/2017 Respiratory No cough 07/23/2016 Gastrointestinal No abdominal pain 2016 Musculoskeletal joint complaint 2016 Musculoskeletal shoulder pain 07/23/2016 Dermatologic No rash 07/23/2016 Neurologic No alteration of consciousness 07/23/2016 Constitutional No recent illness 2016 Constitutional No chills 06/17/2016 Constitutional No fever 06/17/2016 Eyes No eye erythema 06/17/2016 Ears/Nose/Throat/Neck No nasal discharge 06/17/2016 Cardiovascular No chest pain/pressure 05/2016 Cardiovascular No dyspnea 06/17/2016 Respiratory No cough 06/17/2016 Respiratory No dyspnea 06/17/2016 Musculoskeletal joint complaint 2016 Neurologic No alteration of consciousness 06/17/2016 Neurologic No mental status change 2016 Musculoskeletal shoulder pain 06/17/2016 Constitutional No recent illness 2015 Constitutional No chills 05/06/2016 Constitutional No diaphoresis 05/06/2016 Constitutional No fever 05/06/2016 Eyes No eye discharge 05/06/2016 Eyes No eye erythema 05/06/2016 Cardiovascular No chest pain/pressure Respiratory No cough 05/06/2016 Neurologic No alteration of consciousness 05/06/2016 Ears/Nose/Throat/Neck No nasal discharge 05/06/2016 Respiratory No dyspnea 05/06/2016 Dermatologic rash 05/06/2016 Constitutional No recent illness 2015 Constitutional No anorexia 04/07/2016 Constitutional No night sweats 2015 Constitutional No chills 04/07/2016 Constitutional No diaphoresis 04/07/2016 Constitutional No fatigue 04/07/2016 Constitutional No fever 04/07/2016 Constitutional No insomnia 04/07/2016 Constitutional No malaise 04/07/2016 Constitutional No weight loss 04/07/2016 Constitutional No weight gain 04/07/2016 Musculoskeletal joint complaint 2015 Eyes No eye discharge 04/07/2016 Eyes No eye erythema 04/07/2016 Ears/Nose/Throat/Neck No dizziness 2015 Ears/Nose/Throat/Neck No headache 2015 Cardiovascular No chest pain/pressure Respiratory No productive sputum 2015 Respiratory No cough 04/07/2016 Gastrointestinal No abdominal pain 2015 Gastrointestinal constipation 04/07/2016 Gastrointestinal diarrhea 04/07/2016 Genitourinary/Nephrology No dysuria 04/07 Dermatologic No rash 04/07/2016 Dermatologic erythema 04/07/2016 Neurologic No alteration of consciousness 04/07/2016 Psychiatric No depression 04/07/2016 Psychiatric No anxiety 04/07/2016 Hematologic/Lymphatic No abnormal ecchymoses 04/07/2016 Endocrine No polyuria 04/07/2016 Physical Exam Exam Name System Name Item Name Status Result Effective Dates Notes Full Exam - General 1994 Constitutional general appearance Overall: well developed 12/07/2017 None Full Exam - General 1994 Constitutional general appearance Overall: in no acute distress 12/07/2017 None Full Exam - General 1994 Constitutional general appearance Overall: well nourished 12/07/2017 None Full Exam - General 1994 Eyes conjunctiva /eyelids Overall: conjunctiva clear 12/07/2017 None Full Exam - General 1994 Eyes conjunctiva /eyelids Overall: eyelids normal 12/07/2017 None Full Exam - General 1994 Ears/Nose/Throat lips/teeth/gingiva Overall: benign lips 12/07/2017 None Full Exam - General 1994 Ears/Nose/Throat oral cavity/pharynx/larynx Overall: oral mucosa clear 12/07/2017 None Full Exam - General 1994 Respiratory auscultation Overall: breath sounds clear bilaterally 12/07/2017 None Full Exam - General 1994 Respiratory respiratory effort/rhythm Overall: no retractions 12/07/2017 None Full Exam - General 1994 Respiratory respiratory effort/rhythm Overall: normal rate 12/07/2017 None Full Exam - General 1994 Cardiovascular auscultation of heart Overall: regular rate 12/07/2017 None Full Exam - General 1994 Cardiovascular auscultation of heart Overall: normal heart sounds 12/07/2017 None Full Exam - General 1994 Abdomen abdominal exam Overall: normal bowel sounds 12/07/2017 None Full Exam - General 1994 Abdomen abdominal exam Periumbilical: tender to palpation 12/07/2017 None Full Exam - General 1994 Abdomen abdominal exam Periumbilical: dull pain 12/07/2017 None Full Exam - General 1994 Abdomen abdominal exam Periumbilical: no guarding 12/07/2017 None Full Exam - General 1994 Abdomen abdominal exam Periumbilical: no rebound tenderness 12/07/2017 None Full Exam - General 1994 Abdomen hernia exam Abdominal hernia present: tender 12/07/2017 None Full Exam - General 1994 Abdomen hernia exam Abdominal hernia present: reducible 12/07/2017 None Full Exam - General 1994 Lymphatic neck nodes Overall: anterior cervical chain benign 12/07/2017 None Full Exam - General 1994 Lymphatic neck nodes Overall: posterior cervical chain benign 12/07/2017 None Full Exam - General 1994 Integument inspection of skin Consistency: moist 12/07/2017 ulceration of penis - oozing urine from penis - pt unable to control. Full Exam - General 1994 Neurologic cranial nerves Overall: crainial nerves 2 - 12 grossly intact 12/07/2017 None Full Exam - General 1994 Psychiatric orientation/consciousness Overall: oriented to person, place and time 12/07/2017 None Full Exam - General 1994 Psychiatric mood and affect Overall: normal mood and affect 12/07/2017 None Full Exam - General 1994 Psychiatric appearance Overall: well-groomed, good eye contact 12/07/2017 None Full Exam - General 1994 Constitutional general appearance Overall: well developed 11/04/2017 None Full Exam - General 1994 Constitutional general appearance Overall: in no acute distress 11/04/2017 None Full Exam - General 1994 Constitutional general appearance Overall: well nourished 11/04/2017 None Full Exam - General 1994 Eyes conjunctiva /eyelids Overall: conjunctiva clear 11/04/2017 None Full Exam - General 1994 Eyes conjunctiva /eyelids Overall: eyelids normal 11/04/2017 None Full Exam - General 1994 Ears/Nose/Throat lips/teeth/gingiva Overall: benign lips 11/04/2017 None Full Exam - General 1994 Ears/Nose/Throat oral cavity/pharynx/larynx Overall: oral mucosa clear 11/04/2017 None Full Exam - General 1994 Respiratory auscultation Overall: breath sounds clear bilaterally 11/04/2017 None Full Exam - General 1994 Respiratory respiratory effort/rhythm Overall: no retractions 11/04/2017 None Full Exam - General 1994 Respiratory respiratory effort/rhythm Overall: normal rate 11/04/2017 None Full Exam - General 1994 Cardiovascular auscultation of heart Overall: regular rate 11/04/2017 None Full Exam - General 1994 Cardiovascular auscultation of heart Overall: normal heart sounds 11/04/2017 None Full Exam - General 1994 Abdomen abdominal exam Overall: normal bowel sounds 11/04/2017 None Full Exam - General 1994 Abdomen abdominal exam Periumbilical: tender to palpation 11/04/2017 None Full Exam - General 1994 Abdomen abdominal exam Periumbilical: dull pain 11/04/2017 None Full Exam - General 1994 Abdomen abdominal exam Periumbilical: no guarding 11/04/2017 None Full Exam - General 1994 Abdomen abdominal exam Periumbilical: no rebound tenderness 11/04/2017 None Full Exam - General 1994 Abdomen hernia exam Abdominal hernia present: tender 11/04/2017 None Full Exam - General 1994 Abdomen hernia exam Abdominal hernia present: reducible 11/04/2017 None Full Exam - General 1994 Lymphatic neck nodes Overall: anterior cervical chain benign 11/04/2017 None Full Exam - General 1994 Lymphatic neck nodes Overall: posterior cervical chain benign 11/04/2017 None Full Exam - General 1994 Integument inspection of skin Consistency: moist 11/04/2017 ulceration of penis - oozing urine from penis - pt unable to control. Full Exam - General 1994 Neurologic cranial nerves Overall: crainial nerves 2 - 12 grossly intact 11/04/2017 None Full Exam - General 1994 Psychiatric orientation/consciousness Overall: oriented to person, place and time 11/04/2017 None Full Exam - General 1994 Psychiatric mood and affect Overall: normal mood and affect 11/04/2017 None Full Exam - General 1994 Psychiatric appearance Overall: well-groomed, good eye contact 11/04/2017 None Full Exam - General 1994 Constitutional general appearance Overall: well developed 10/14/2017 None Full Exam - General 1994 Constitutional general appearance Overall: in no acute distress 10/14/2017 None Full Exam - General 1994 Constitutional general appearance Overall: well nourished 10/14/2017 None Full Exam - General 1994 Eyes conjunctiva /eyelids Overall: conjunctiva clear 10/14/2017 None Full Exam - General 1994 Eyes conjunctiva /eyelids Overall: eyelids normal 10/14/2017 None Full Exam - General 1994 Ears/Nose/Throat lips/teeth/gingiva Overall: benign lips 10/14/2017 None Full Exam - General 1994 Ears/Nose/Throat oral cavity/pharynx/larynx Overall: oral mucosa clear 10/14/2017 None Full Exam - General 1994 Respiratory auscultation Overall: breath sounds clear bilaterally 10/14/2017 None Full Exam - General 1994 Respiratory respiratory effort/rhythm Overall: no retractions 10/14/2017 None Full Exam - General 1994 Respiratory respiratory effort/rhythm Overall: normal rate 10/14/2017 None Full Exam - General 1994 Cardiovascular auscultation of heart Overall: regular rate 10/14/2017 None Full Exam - General 1994 Cardiovascular auscultation of heart Overall: normal heart sounds 10/14/2017 None Full Exam - General 1994 Abdomen abdominal exam Overall: normal bowel sounds 10/14/2017 None Full Exam - General 1994 Abdomen abdominal exam Periumbilical: tender to palpation 10/14/2017 None Full Exam - General 1994 Abdomen abdominal exam Periumbilical: dull pain 10/14/2017 None Full Exam - General 1994 Abdomen abdominal exam Periumbilical: no guarding 10/14/2017 None Full Exam - General 1994 Abdomen abdominal exam Periumbilical: no rebound tenderness 10/14/2017 None Full Exam - General 1994 Abdomen hernia exam Abdominal hernia present: tender 10/14/2017 None Full Exam - General 1994 Abdomen hernia exam Abdominal hernia present: reducible 10/14/2017 None Full Exam - General 1994 Neurologic cranial nerves Overall: crainial nerves 2 - 12 grossly intact 10/14/2017 None Full Exam - General 1994 Psychiatric orientation/consciousness Overall: oriented to person, place and time 10/14/2017 None Full Exam - General 1994 Psychiatric mood and affect Overall: normal mood and affect 10/14/2017 None Full Exam - General 1994 Psychiatric appearance Overall: well-groomed, good eye contact 10/14/2017 None Full Exam - General 1994 Lymphatic neck nodes Overall: anterior cervical chain benign 10/14/2017 None Full Exam - General 1994 Lymphatic neck nodes Overall: posterior cervical chain benign 10/14/2017 None Full Exam - General 1994 Integument inspection of skin Consistency: moist 10/14/2017 ulceration of penis - oozing urine from penis - pt unable to control. Full Exam - General 1994 Constitutional general appearance Overall: well developed 03/23/2017 None Full Exam - General 1994 Constitutional general appearance Overall: in no acute distress 03/23/2017 None Full Exam - General 1994 Constitutional general appearance Overall: well nourished 03/23/2017 None Full Exam - General 1994 Eyes conjunctiva /eyelids Overall: conjunctiva clear 03/23/2017 None Full Exam - General 1994 Eyes conjunctiva /eyelids Overall: eyelids normal 03/23/2017 None Full Exam - General 1994 Ears/Nose/Throat lips/teeth/gingiva Overall: benign lips 03/23/2017 None Full Exam - General 1994 Ears/Nose/Throat oral cavity/pharynx/larynx Overall: oral mucosa clear 03/23/2017 None Full Exam - General 1994 Respiratory respiratory effort/rhythm Overall: normal rate 03/23/2017 None Full Exam - General 1994 Respiratory respiratory effort/rhythm Overall: no retractions 03/23/2017 None Full Exam - General 1994 Respiratory auscultation Overall: breath sounds clear bilaterally 03/23/2017 None Full Exam - General 1994 Cardiovascular auscultation of heart Overall: regular rate 03/23/2017 None Full Exam - General 1994 Cardiovascular auscultation of heart Overall: normal heart sounds 03/23/2017 None Full Exam - General 1994 Abdomen abdominal exam Overall: normal bowel sounds 03/23/2017 None Full Exam - General 1994 Abdomen abdominal exam Periumbilical: tender to palpation 03/23/2017 None Full Exam - General 1994 Abdomen abdominal exam Periumbilical: dull pain 03/23/2017 None Full Exam - General 1994 Abdomen abdominal exam Periumbilical: no guarding 03/23/2017 None Full Exam - General 1994 Abdomen abdominal exam Periumbilical: no rebound tenderness 03/23/2017 None Full Exam - General 1994 Abdomen hernia exam Abdominal hernia present: tender 03/23/2017 None Full Exam - General 1994 Abdomen hernia exam Abdominal hernia present: reducible 03/23/2017 None Full Exam - General 1994 Neurologic cranial nerves Overall: crainial nerves 2 - 12 grossly intact 03/23/2017 None Full Exam - General 1994 Psychiatric orientation/consciousness Overall: oriented to person, place and time 03/23/2017 None Full Exam - General 1994 Psychiatric mood and affect Overall: normal mood and affect 03/23/2017 None Full Exam - General 1994 Psychiatric appearance Overall: well-groomed, good eye contact 03/23/2017 None Full Exam - General 1994 Constitutional general appearance Overall: well developed 03/04/2017 None Full Exam - General 1994 Constitutional general appearance Overall: in no acute distress 03/04/2017 None Full Exam - General 1994 Constitutional general appearance Overall: well nourished 03/04/2017 None Full Exam - General 1994 Eyes conjunctiva /eyelids Overall: conjunctiva clear 03/04/2017 None Full Exam - General 1994 Eyes conjunctiva /eyelids Overall: eyelids normal 03/04/2017 None Full Exam - General 1994 Ears/Nose/Throat otoscopic exam Overall: external auditory canals clear 03/04/2017 None Full Exam - General 1994 Ears/Nose/Throat otoscopic exam Overall: tympanic membranes clear 03/04/2017 None Full Exam - General 1994 Ears/Nose/Throat lips/teeth/gingiva Overall: benign lips 03/04/2017 None Full Exam - General 1994 Ears/Nose/Throat oral cavity/pharynx/larynx Overall: oral mucosa clear 03/04/2017 None Full Exam - General 1994 Ears/Nose/Throat oral cavity/pharynx/larynx Overall: oropharyngeal mucosa clear 03/04/2017 None Full Exam - General 1994 Respiratory respiratory effort/rhythm Overall: no retractions 03/04/2017 None Full Exam - General 1994 Respiratory respiratory effort/rhythm Overall: normal rate 03/04/2017 None Full Exam - General 1994 Respiratory auscultation Overall: breath sounds clear bilaterally 03/04/2017 None Full Exam - General 1994 Cardiovascular auscultation of heart Overall: regular rate 03/04/2017 None Full Exam - General 1994 Cardiovascular auscultation of heart Overall: normal heart sounds 03/04/2017 None Full Exam - General 1994 Abdomen abdominal exam Overall: no tenderness 03/04/2017 None Full Exam - General 1994 Abdomen abdominal exam Overall: normal bowel sounds 03/04/2017 None Full Exam - General 1994 Neurologic cranial nerves Overall: crainial nerves 2 - 12 grossly intact 03/04/2017 None Full Exam - General 1994 Psychiatric orientation/consciousness Overall: oriented to person, place and time 03/04/2017 None Full Exam - General 1994 Psychiatric mood and affect Overall: normal mood and affect 03/04/2017 None Full Exam - General 1994 Psychiatric appearance Overall: well-groomed, good eye contact 03/04/2017 None Full Exam - Orthopedics Constitutional general appearance Overall: well nourished 02/10/2017 None Full Exam - Orthopedics Constitutional general appearance Overall: well developed 02/10/2017 None Full Exam - Orthopedics Constitutional general appearance Overall: in no acute distress 02/10/2017 None Full Exam - Orthopedics Eyes conjunctiva/ eyelids Overall: conjunctiva clear 02/10/2017 None Full Exam - Orthopedics Eyes conjunctiva/ eyelids Overall: eyelids normal 02/10/2017 None Full Exam - Orthopedics Ears/Nose/Throat lips/teeth/gingiva Overall: benign lips 02/10/2017 None Full Exam - Orthopedics Ears/Nose/Throat oral cavity/pharynx/larynx Overall: oral mucosa clear 02/10/2017 None Full Exam - Orthopedics Respiratory respiratory effort/rhythm Overall: no retractions 02/10/2017 None Full Exam - Orthopedics Respiratory respiratory effort/rhythm Overall: normal rate 02/10/2017 None Full Exam - Orthopedics Psychiatric orientation/consciousness Overall: oriented to person, place and time 02/10/2017 None Full Exam - Orthopedics Psychiatric mood and affect Overall: normal mood and affect 02/10/2017 None Full Exam - Orthopedics Psychiatric appearance Overall: well-groomed, good eye contact 02/10/2017 None Full Exam - Orthopedics MS: head/neck insp & palp - H/N Cervical muscles palpation: tender left paracervical 02/10/2017 None Full Exam - Orthopedics MS: head/neck insp & palp - H/N Cervical muscles palpation: tender right paracervical 02/10/2017 None Full Exam - Orthopedics MS: head/neck insp & palp - H/N Cervical spine palpation: tender spinous processes 02/10/2017 None Full Exam - Orthopedics MS: head/neck range of motion - H/N Left lateral bending: painful cervical muscles with left lateral bending 2016 None Full Exam - Orthopedics MS: head/neck range of motion - H/N Right lateral bending: painful cervical muscles with right lateral bending 02/10 None Full Exam - Orthopedics MS: spine/rib/pelvis insp & palp - S/R/P Thoracic spine palpation: tender thoracic spinous processes 02/10/2017 None Full Exam - Orthopedics Neurological orientation Overall: oriented to person, place and time 02/10/2017 None Full Exam - General 1994 Constitutional general appearance Overall: well developed 12/16/2016 None Full Exam - General 1994 Constitutional general appearance Overall: in no acute distress 12/16/2016 None Full Exam - General 1994 Constitutional general appearance Overall: well nourished 12/16/2016 None Full Exam - General 1994 Constitutional general appearance Assistive Device: wheelchair 12/16/2016 None Full Exam - General 1994 Eyes conjunctiva /eyelids Overall: conjunctiva clear 12/16/2016 None Full Exam - General 1994 Eyes pupils and irises Overall: pupils equal, round, reactive to light and accomodation 12/16/2016 None Full Exam - General 1994 Ears/Nose/Throat otoscopic exam Overall: external auditory canals clear 12/16/2016 None Full Exam - General 1994 Ears/Nose/Throat otoscopic exam Overall: tympanic membranes clear 12/16/2016 None Full Exam - General 1994 Respiratory auscultation Overall: breath sounds clear bilaterally 12/16/2016 None Full Exam - General 1994 Respiratory respiratory effort/rhythm Overall: no retractions 12/16/2016 None Full Exam - General 1994 Respiratory respiratory effort/rhythm Overall: normal rate 12/16/2016 None Full Exam - General 1994 Cardiovascular auscultation of heart Overall: regular rate 12/16/2016 None Full Exam - General 1994 Cardiovascular auscultation of heart Overall: normal heart sounds 12/16/2016 None Full Exam - General 1994 Abdomen abdominal exam Overall: no tenderness 12/16/2016 None Full Exam - General 1994 Abdomen abdominal exam Overall: normal bowel sounds 12/16/2016 None Full Exam - General 1994 Lymphatic neck nodes Overall: anterior cervical chain benign 12/16/2016 None Full Exam - General 1994 Lymphatic neck nodes Overall: posterior cervical chain benign 12/16/2016 None Full Exam - General 1994 Psychiatric orientation/consciousness Overall: oriented to person, place and time 12/16/2016 None Full Exam - General 1994 Eyes conjunctiva /eyelids Overall: eyelids normal 12/16/2016 None Full Exam - General 1994 Ears/Nose/Throat lips/teeth/gingiva Overall: benign lips 12/16/2016 None Full Exam - General 1994 Ears/Nose/Throat oral cavity/pharynx/larynx Overall: oral mucosa clear 12/16/2016 None Full Exam - General 1994 Musculoskeletal head and neck Overall: head atraumatic 12/16/2016 None Full Exam - General 1994 Integument inspection of skin Overall: few scattered moles, no gross abnormalities 12/16/2016 None Full Exam - General 1994 Neurologic cranial nerves Overall: crainial nerves 2 - 12 grossly intact 12/16/2016 None Full Exam - General 1994 Psychiatric mood and affect Overall: normal mood and affect 12/16/2016 None Full Exam - General 1994 Psychiatric appearance Overall: well-groomed, good eye contact 12/16/2016 None Full Exam - General 1994 Constitutional general appearance Overall: well developed 09/30/2016 None Full Exam - General 1994 Constitutional general appearance Overall: in no acute distress 09/30/2016 None Full Exam - General 1994 Constitutional general appearance Overall: well nourished 09/30/2016 None Full Exam - General 1994 Eyes conjunctiva /eyelids Overall: conjunctiva clear 09/30/2016 None Full Exam - General 1994 Eyes conjunctiva /eyelids Overall: eyelids normal 09/30/2016 None Full Exam - General 1994 Ears/Nose/Throat lips/teeth/gingiva Overall: benign lips 09/30/2016 None Full Exam - General 1994 Ears/Nose/Throat oral cavity/pharynx/larynx Overall: oral mucosa clear 09/30/2016 None Full Exam - General 1994 Respiratory respiratory effort/rhythm Overall: no retractions 09/30/2016 None Full Exam - General 1994 Respiratory respiratory effort/rhythm Overall: normal rate 09/30/2016 None Full Exam - General 1994 Respiratory auscultation Overall: breath sounds clear bilaterally 09/30/2016 None Full Exam - General 1994 Cardiovascular auscultation of heart Overall: regular rate 09/30/2016 None Full Exam - General 1994 Cardiovascular auscultation of heart Overall: normal heart sounds 09/30/2016 None Full Exam - General 1994 Neurologic cranial nerves Overall: crainial nerves 2 - 12 grossly intact 09/30/2016 None Full Exam - General 1994 Psychiatric orientation/consciousness Overall: oriented to person, place and time 09/30/2016 None Full Exam - General 1994 Psychiatric mood and affect Overall: normal mood and affect 09/30/2016 None Full Exam - General 1994 Psychiatric appearance Overall: well-groomed, good eye contact 09/30/2016 None Full Exam - Orthopedics Constitutional general appearance Overall: well nourished 07/23/2016 None Full Exam - Orthopedics Constitutional general appearance Overall: well developed 07/23/2016 None Full Exam - Orthopedics Constitutional general appearance Overall: in no acute distress 07/23/2016 None Full Exam - Orthopedics Eyes conjunctiva/ eyelids Overall: conjunctiva clear 07/23/2016 None Full Exam - Orthopedics Eyes conjunctiva/ eyelids Overall: eyelids normal 07/23/2016 None Full Exam - Orthopedics Ears/Nose/Throat lips/teeth/gingiva Overall: benign lips 07/23/2016 None Full Exam - Orthopedics Ears/Nose/Throat oral cavity/pharynx/larynx Overall: oral mucosa clear 07/23/2016 None Full Exam - Orthopedics Respiratory respiratory effort/rhythm Overall: no retractions 07/23/2016 None Full Exam - Orthopedics Respiratory respiratory effort/rhythm Overall: normal rate 07/23/2016 None Full Exam - Orthopedics MS: left upper extremity insp & palp - LUE Shoulder: tenderness @ biceps tendon 07/23/2016 None Full Exam - Orthopedics MS: left upper extremity insp & palp - LUE Wrist: normal appearance 07/23/2016 None Full Exam - Orthopedics MS: left upper extremity insp & palp - LUE Wrist: tender 07/23/2016 None Full Exam - Orthopedics Psychiatric orientation/consciousness Overall: oriented to person, place and time 07/23/2016 None Full Exam - Orthopedics Psychiatric mood and affect Overall: normal mood and affect 07/23/2016 None Full Exam - Orthopedics Psychiatric appearance Overall: well-groomed, good eye contact 07/23/2016 None Full Exam - Orthopedics MS: Bilateral Upper Extremities range of motion - UE Wrists: full range of motion 07/23/2016 phalens positive Full Exam - Orthopedics Constitutional general appearance Overall: well nourished 06/17/2016 None Full Exam - Orthopedics Constitutional general appearance Overall: well developed 06/17/2016 None Full Exam - Orthopedics Constitutional general appearance Overall: in no acute distress 06/17/2016 None Full Exam - Orthopedics Eyes conjunctiva/ eyelids Overall: conjunctiva clear 06/17/2016 None Full Exam - Orthopedics Eyes conjunctiva/ eyelids Overall: eyelids normal 06/17/2016 None Full Exam - Orthopedics Ears/Nose/Throat lips/teeth/gingiva Overall: benign lips 06/17/2016 None Full Exam - Orthopedics Ears/Nose/Throat oral cavity/pharynx/larynx Overall: oral mucosa clear 06/17/2016 None Full Exam - Orthopedics Respiratory respiratory effort/rhythm Overall: no retractions 06/17/2016 None Full Exam - Orthopedics Respiratory respiratory effort/rhythm Overall: normal rate 06/17/2016 None Full Exam - Orthopedics Psychiatric orientation/consciousness Overall: oriented to person, place and time 06/17/2016 None Full Exam - Orthopedics Psychiatric mood and affect Overall: normal mood and affect 06/17/2016 None Full Exam - Orthopedics Psychiatric appearance Overall: well-groomed, good eye contact 06/17/2016 None Full Exam - Orthopedics MS: left upper extremity insp & palp - LUE Shoulder: tenderness @ subacromial space 06/17/2016 None Full Exam - Orthopedics MS: left upper extremity insp & palp - LUE Shoulder: tenderness @ biceps tendon 06/17/2016 None Full Exam - Orthopedics MS: left upper extremity insp & palp - LUE Wrist: tender 06/17/2016 None Full Exam - Orthopedics MS: left upper extremity insp & palp - LUE Wrist: normal appearance 06/17/2016 None Full Exam - Orthopedics MS: spine/rib/pelvis insp & palp - S/R/P Thoracic spine palpation: tender facet joints 06/17/2016 None Full Exam - General 1994 Constitutional general appearance Overall: well developed 05/06/2016 None Full Exam - General 1994 Constitutional general appearance Overall: in no acute distress 05/06/2016 None Full Exam - General 1994 Constitutional general appearance Overall: well nourished 05/06/2016 None Full Exam - General 1994 Constitutional general appearance Assistive Device: wheelchair 05/06/2016 None Full Exam - General 1994 Eyes conjunctiva /eyelids Overall: conjunctiva clear 05/06/2016 None Full Exam - General 1994 Respiratory respiratory effort/rhythm Overall: no retractions 05/06/2016 None Full Exam - General 1994 Psychiatric orientation/consciousness Overall: oriented to person, place and time 05/06/2016 None Full Exam - General 1994 Ears/Nose/Throat lips/teeth/gingiva Overall: benign lips 05/06/2016 None Full Exam - General 1994 Respiratory respiratory effort/rhythm Overall: normal rate 05/06/2016 None Full Exam - General 1994 Integument inspection of skin Location: chest 05/06/2016 None Full Exam - General 1994 Integument inspection of skin Dermatitis: pustule 05/06/2016 None Full Exam - General 1994 Integument inspection of skin Pigmentation: erythematous 05/06/2016 None Full Exam - General 1994 Psychiatric mood and affect Overall: normal mood and affect 05/06/2016 None Full Exam - General 1994 Constitutional general appearance Overall: well developed 04/07/2016 None Full Exam - General 1994 Constitutional general appearance Overall: in no acute distress 04/07/2016 None Full Exam - General 1994 Constitutional general appearance Overall: well nourished 04/07/2016 None Full Exam - General 1994 Constitutional general appearance Assistive Device: wheelchair 04/07/2016 None Full Exam - General 1994 Psychiatric orientation/consciousness Overall: oriented to person, place and time 04/07/2016 None Full Exam - General 1994 Neurologic sensation Touch: (specify location of deficit): decreased 04/07/2016 None Full Exam - General 1994 Neurologic sensation Touch: (specify location of deficit): two-point discrimination _ 04/07/2016 None Full Exam - General 1994 Integument inspection of skin Overall: few scattered moles, no gross abnormalities 04/07/2016 None Full Exam - General 1994 Musculoskeletal lower extremity Inspection - lower leg: swelling 04/07/2016 None Full Exam - General 1994 Lymphatic neck nodes Overall: anterior cervical chain benign 04/07/2016 None Full Exam - General 1994 Lymphatic neck nodes Overall: posterior cervical chain benign 04/07/2016 None Full Exam - General 1994 Abdomen abdominal exam Overall: no tenderness 04/07/2016 None Full Exam - General 1994 Abdomen abdominal exam Overall: normal bowel sounds 04/07/2016 None Full Exam - General 1994 Cardiovascular auscultation of heart Overall: regular rate 04/07/2016 None Full Exam - General 1994 Cardiovascular auscultation of heart Overall: normal heart sounds 04/07/2016 None Full Exam - General 1994 Respiratory auscultation Overall: breath sounds clear bilaterally 04/07/2016 None Full Exam - General 1994 Respiratory respiratory effort/rhythm Overall: no retractions 04/07/2016 None Full Exam - General 1994 Respiratory respiratory effort/rhythm Overall: normal rate 04/07/2016 None Full Exam - General 1994 Ears/Nose/Throat otoscopic exam Overall: external auditory canals clear 04/07/2016 None Full Exam - General 1994 Ears/Nose/Throat otoscopic exam Overall: tympanic membranes clear 04/07/2016 None Full Exam - General 1994 Eyes conjunctiva /eyelids Overall: conjunctiva clear 04/07/2016 None Full Exam - General 1994 Eyes pupils and irises Overall: pupils equal, round, reactive to light and accomodation 04/07/2016 None Procedures No Procedures data Vital Signs Date Vital 12/07/2017 Blood Pressure 1: 112/84 Code : 8480-6 Heart Rate 1: 93 bpm Height: SpO2: 94% Weight: 11/04/2017 Blood Pressure 1: 120/72 Code : 8480-6 Heart Rate 1: 78 bpm Height: SpO2: 95% Weight: 10/14/2017 Blood Pressure 1: 118/74 Code : 8480-6 Heart Rate 1: 81 bpm Height: SpO2: 95% Weight: 03/23/2017 Blood Pressure 1: 130/64 Code : 8480-6 Heart Rate 1: 102 bpm Height: SpO2: 98% Weight: 03/04/2017 Blood Pressure 1: 134/82 Code : 8480-6 Heart Rate 1: 110 bpm Height: SpO2: 97% Weight: 02/10/2017 Blood Pressure 1: 130/74 Code : 8480-6 Heart Rate 1: 96 bpm Height: SpO2: 97% Weight: 12/16/2016 Blood Pressure 1: 140/86 Code : 8480-6 Heart Rate 1: 101 bpm Height: SpO2: 97% Weight: 09/30/2016 Blood Pressure 1: 134/72 Code : 8480-6 Heart Rate 1: 97 bpm Height: SpO2: 98% Weight: 07/23/2016 Blood Pressure 1: 136/80 Code : 8480-6 Heart Rate 1: 91 bpm Height: SpO2: 99% Weight: 06/17/2016 Blood Pressure 1: 108/62 Code : 8480-6 Heart Rate 1: 103 bpm Height: SpO2: 97% Weight: 05/06/2016 Blood Pressure 1: 144/68 Code : 8480-6 Heart Rate 1: 100 bpm Height: 5'3" SpO2: 98% Weight: 04/07/2016 Blood Pressure 1: 132/80 Code : 8480-6 Heart Rate 1: 130 bpm Height: SpO2: 97% Weight: Functional Status No Functional Status data History of Present Illness Symptom Name Status Result Effective Date Notes hypertension Quality chronic 12/07/2017 None hypertension Onset and Resolution ongoing 12/07/2017 None hypertension Onset of Symptom during adulthood 12/07/2017 None hypertension Severity mild 12/07/2017 None hypertension Significant Family History hypertension 12/07/2017 None hypertension Triggers no known associated factors 12/07/2017 None hypertension Alleviating Factors medication 12/07/2017 None back pain Location lumbar-sacral spine 12/07/2017 None back pain Quality constant 12/07/2017 None back pain Onset and Resolution gradual in onset 12/07/2017 None back pain Onset of Symptom 2 months ago 12/07/2017 None back pain Frequency of Episodes daily 12/07/2017 None back pain Pertinent Findings extremity weakness 12/07/2017 None back pain Pertinent Findings weight loss 12/07/2017 None headache Location in the frontal area 12/07/2017 None headache Quality sharp 12/07/2017 None headache Onset and Resolution ongoing 12/07/2017 None headache Onset of Symptom _ months ago 12/07/2017 None headache Limitation on Activities moderately limits activities 12/07/2017 None headache Pertinent Findings awakens from sleep 12/07/2017 None headache Pertinent Findings blurred vision 12/07/2017 None headache Pertinent Findings dizziness 12/07/2017 None hypertension Quality chronic 11/04/2017 None hypertension Onset and Resolution ongoing 11/04/2017 None hypertension Onset of Symptom during adulthood 11/04/2017 None hypertension Severity mild 11/04/2017 None hypertension Significant Family History hypertension 11/04/2017 None hypertension Triggers no known associated factors 11/04/2017 None hypertension Alleviating Factors medication 11/04/2017 None depression Quality constant 10/14/2017 None depression Onset and Resolution sudden in onset 10/14/2017 None depression Onset of Symptom 6 months ago 10/14/2017 None depression Frequency of Episodes daily 10/14/2017 None Hospital Follow Up _ infection 10/14/2017 None hernia Location umbilical 03/23/2017 None hernia Quality worsening 03/23/2017 None hernia Onset and Resolution sudden in onset 03/23/2017 None hernia Onset of Symptom 2 weeks ago 03/23/2017 None hernia Frequency of Episodes daily 03/23/2017 None hernia Pertinent Findings Denies testicular pain 03/23/2017 None back pain Location thoracic spine 03/04/2017 None back pain Triggers position change 03/04/2017 None neck pain Location on both sides 03/04/2017 None back pain Onset and Resolution ongoing 03/04/2017 None neck pain Onset and Resolution ongoing 03/04/2017 None back pain Quality improving 03/04/2017 None neck pain Quality improving 03/04/2017 None back pain Location thoracic spine 02/10/2017 None back pain Quality aching 02/10/2017 None back pain Quality constant 02/10/2017 None back pain Quality pinching 02/10/2017 None back pain Onset and Resolution sudden in onset 02/10/2017 None back pain Onset of Symptom 1 days ago 02/10/2017 None back pain Triggers position change 02/10/2017 None neck pain Location on both sides 02/10/2017 None neck pain Quality aching 02/10/2017 None neck pain Quality constant 02/10/2017 None neck pain Onset and Resolution sudden in onset 02/10/2017 None neck pain Onset of Symptom 1 days ago 02/10/2017 None hypertension Onset and Resolution ongoing 12/16/2016 None hypertension Quality chronic 12/16/2016 None hypertension Severity not consistently severe symptoms, the symptoms fluctuate from no symptoms to anxiety and headaches 12/16/2016 None hypertension Pertinent Findings Denies dyspnea 12/16/2016 None headache Location diffusely 09/30/2016 None headache Quality aching 09/30/2016 None headache Onset and Resolution sudden in onset 09/30/2016 None headache Quality pressure 09/30/2016 None headache Onset of Symptom 2 months ago 09/30/2016 None headache Limitation on Activities does not limit activities 09/30/2016 None headache Frequency of Episodes daily 09/30/2016 None hypertension Quality intermittent 09/30/2016 None hypertension Onset and Resolution sudden in onset 09/30/2016 None hypertension Onset of Symptom 1 weeks ago 09/30/2016 None shoulder pain Location on the left shoulder 07/23/2016 None shoulder pain Onset and Resolution ongoing 07/23/2016 None shoulder pain Quality constant 07/23/2016 None shoulder pain Limitation on Activities does not limit activities 07/23/2016 None wrist pain Location on the left 07/23/2016 None wrist pain Location on the right 07/23/2016 (worse) wrist pain Quality acute 07/23/2016 None wrist pain Onset and Resolution sudden in onset 07/23/2016 None wrist pain Onset of Symptom 2 days ago 07/23/2016 None wrist pain Mechanism of injury unknown 07/23/2016 None elbow pain Location on the left 07/23/2016 None elbow pain Quality acute 07/23/2016 None elbow pain Onset and Resolution sudden in onset 07/23/2016 None elbow pain Onset of Symptom 1 days ago 07/23/2016 None shoulder pain Triggers activity 07/23/2016 hurts when using the parallel bars to stand up muscle weakness Location diffusely 06/17/2016 None muscle weakness Quality left-sided 06/17/2016 None muscle weakness Onset and Resolution sudden in onset 06/17/2016 None muscle weakness Onset of Symptom _ days ago 06/17/2016 None muscle weakness Frequency of Episodes daily 06/17/2016 None muscle weakness Pertinent Findings muscle tenderness 06/17/2016 None muscle weakness Pertinent Findings pain 06/17/2016 None rash Location-Major on the neck 05/06/2016 None rash Location-Major on the chest 05/06/2016 None rash Color red 2015 None rash Onset and Resolution sudden in onset 05/06/2016 None rash Onset of Symptom 4 days ago 05/06/2016 None rash Triggers no known triggers 05/06/2016 None rash Alleviating Factors no alleviating factors 05/06/2016 None rash Pertinent Findings itching 05/06/2016 None hypertension Quality intermittent 04/07/2016 None hypertension Onset and Resolution ongoing 04/07/2016 None hypertension Blood Pressure Values patient checking blood pressure at home - did not bring in readings 04/07/2016 None hypertension Frequency of Episodes daily 04/07/2016 None hypertension Pertinent Findings edema 04/07/2016 None hypertension Pertinent Findings Denies dyspnea 04/07/2016 None Advance Directives No Advance Directive data Encounters Encounter Performer Location Codes Date ([id number]) 22489 EST. PATIENT, LEVEL IV Diagnosis: Essential (primary) hypertension[ICD10: I10] Diagnosis: Major depressive disorder, single episode, moderate[ICD10: F32.1] Diagnosis: Muscle spasm of back[ICD10: M62.830] Diagnosis: Other headache syndrome[ICD10: G44.89] [facility] CPT-4: 65797 12/07/2017 ([id number]) 27450 EST. PATIENT, LEVEL IV Diagnosis: Essential (primary) hypertension[ICD10: I10] Diagnosis: Major depressive disorder, single episode, moderate[ICD10: F32.1] Diagnosis: Pressure ulcer of contiguous site of back, buttock and hip, stage 3[ ICD10: L89.43] Anila Nuñez MD, [facility] CPT-4: 76353 11/04/2017 ([id number]) 81758 EST. 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 PATIENT, LEVEL IV Diagnosis: Umbilical hernia without obstruction or gangrene[ICD10: K42.9] Carrie Nuñez MD, [facility] CPT-4: 82574 03/23/2017 46761 EST. PATIENT, LEVEL IV Diagnosis: Other insomnia[ICD10: G47.09] Diagnosis: Essential (primary) hypertension[ICD10: I10] Diagnosis: Pain in thoracic spine[ICD10: M54.6] Diagnosis: Cervicalgia[ICD10: M54.2] Carrie Nuñez MD, [facility] CPT-4: 23933 03/04/2017 03223 EST. PATIENT, LEVEL III Diagnosis: Cervicalgia[ICD10: M54.2] Diagnosis: Pain in thoracic spine[ICD10: M54.6] Diagnosis: Muscle spasm of back[ICD10: M62.830] Carrie Nuñez MD, [facility] CPT-4: 44223 02/10/2017 61535 EST. PATIENT, LEVEL IV Diagnosis: Essential (primary) hypertension[ICD10: I10] Diagnosis: Lumbar spina bifida without hydrocephalus[ICD10: Q05.7] Carrie Nuñez MD, [facility] CPT-4: 09211 12/16/2016 98372 EST. PATIENT, LEVEL IV Diagnosis: Essential (primary) hypertension[ICD10: I10] Diagnosis: Major depressive disorder, single episode, mild[ICD10: F32.0] Carrie Nuñez MD , [facility] CPT-4: 51773 09/30/2016 ([id number]) 08527 EST. PATIENT, LEVEL III Diagnosis: Bicipital tendinitis, left shoulder[ICD10: M75.22] Diagnosis: Pain in right wrist[ICD10: M25.531] Diagnosis: Pain in left wrist[ICD10: M25.532] Angi Nuñez MD, [facility] CPT-4: 54639 07/23/2016 93836 EST. PATIENT, LEVEL III Diagnosis: Pain in left shoulder[ICD10: M25.512] Diagnosis: Pain in left wrist[ICD10: M25.532] Carrie Nuñez MD, [facility] CPT-4: 02792 06/17/2016 65769 EST. 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 Hypertension - well controlled - continue with current medications, continue with no added salt diet. Pt has been encouraged to exercise daily. The pt has been advised to call the office if there are any acute concerns about change in blood pressure readings at home. Depression - improved - continue with supportive care, monitor symptoms. 12/07/2017 Appointment: Anila Nuñez WPtel: [address] [place], [place] [id number] (15 min) Moderate 12/07/2017 Patient Education: Patient Medication Summary Completed 12/07/2017 [facility] Initiated 11/09/2017 Care Plan: Referral Order SNOMED-CT : [id number] Pending 11/05/2017 Visit Plan: Hypertension - well controlled - continue with current medications, continue with no added salt diet. Pt has been encouraged to exercise daily. The pt has been advised to call the office if there are any acute concerns about change in blood pressure readings at home. Depression - improved - continue with current management. Penile ulceration - Dr. Hargrove has seen pt - he feels like he is too complicated to have surgery at [facility] - we will therefore refer to [facility] Referral to Dr. Murdock for removal of Peg tube. 11/04/2017 Appointment: Anila Nuñez WPtel: [phone] [facility] (15 min) Moderate 11/04/2017 Patient Education: Patient Medication Summary Completed 11/04/2017 Appointment: Anila Nuñez WPtel: [phone] [facility] (15 min) Moderate 10/28/2017 Visit Plan: Hypertension - well controlled - continue with current medications, continue with no added salt diet. Pt has been encouraged to exercise daily. The pt has been advised to call the office if there are any acute concerns about change in blood pressure readings at home. Depression - uncontrolled - Pt has been counseled about the diagnosis of depression, the potential causes, and risks associated with the diagnosis. The pt denies suicidal ideation, or plans. The patient has been counseled about treatment options, and understands the risks associated with treatment of depression, as well as the risks associated with NOT treating the depression. I believe the pt will benefit from medical intervention and an antidepressant has been appropriately prescribed for this patient. stop prozac, start cymbalta Ulceration of penis and perineal area - wound care ordered, start catheter. IF penile ulcer does not improve, will refer to Dr. Hargrove. 10/14/2017 Appointment: Anila Nuñez WPtel: [phone] [facility] [place] (30 min) Complex 10/14/2017 Patient Education: Patient Medication Summary Completed 10/14/2017 Appointment: [facility] Nu[facility]ez [facility]el[phone] (30 min) Complex 09/21/2017 Referral: Jorje Harden HPtel:[phone] [facility] Ref[facility] Completed 03/29/2017 Care Plan: Referral Order SNOMED-CT : [id number] Pending 03/24/2017 Visit Plan: Umbilical hernia - reducible, mildly tender to palpation - no skin or color changes - warm and dry to the touch - will refer to surgeon for evaluation - pt is to notify clinic or go to the ER for any acute changes or concerns. 03/23/2017 Appointment: Carrie Raymond WPtel: [phone] [facility] (30 min) Complex 03/23/2017 Patient Education: Patient Medication Summary Completed 03/23/2017 Visit Plan: Insomnia - Pt has been advised to increase the light in the house during the day, and start dimming the lights during the evening hours. Pt has been advised to cut out caffeine after 5pm. Daytime napping worsens night time insomnia. Hypertension - continue with current medications, continue with no added salt diet. Pt has been encouraged to exercise daily. The pt has been advised to call the office if there are any acute concerns about change in blood pressure readings at home. Neck and Back pain - controlled - no changes at this time, pt is to notify clinic if pain becomes uncontrolled, or with any changes or concerns. 03/04/2017 Appointment: Carrie Raymond WPtel: [phone] [facility] (30 min) Complex 03/04/2017 Patient Education: Patient Medication Summary Completed 03/04/2017 Patient Education: .Cervicalgia Neck Pain Completed 03/04/2017 Visit Plan: Back pain- the patient was instructed in appropriate posture, need for weight loss to alleviate abdominal obesity that is worsening the patient's back pain.. The pt is to use prn antiinflammatories to manage acute pain. The patient is to call the office if the pain is worsening or does not improve. Neck Pain- pt to start with aspercreme or biofreeze to neck three times daily and start neck exercises daily. 02/10/2017 Patient Education: Patient Medication Summary Completed 02/10/2017 Patient Education: .Cervicalgia Neck Pain Completed 02/10/2017 Visit Plan: Hypertension - uncontrolled - the patient's medications have been modified as documented in the visit note. The patient has been counseled to cut back on salt in diet for a no added salt diet, low fat diet, start an exercise program with low weight bearing exercises and higher aerobic activity for heart health. The patient is to check blood pressure readings as an outpatient and either fax, call, or email the readings to the office next week for practitioner to review. The pt is to call for acute concerns. History of spina bifida with hydrocephalus- managed by neurology 12/16/2016 Patient Education: Patient Medication Summary Completed 12/16/2016 Visit Plan: Hypertension - uncontrolled - The patient has been counseled to cut back on salt in diet for a no added salt diet, low fat diet, start an exercise program with low weight bearing exercises and higher aerobic activity for heart health. The patient is to check blood pressure readings as an outpatient and either fax, call, or email the readings to the office next week for practitioner to review. The pt is to call for acute concerns. Depression - uncontrolled - Pt has been counseled about the diagnosis of depression, the potential causes, and risks associated with the diagnosis. The pt denies suicidal ideation, or plans. The patient has been counseled about treatment options, and understands the risks associated with treatment of depression, as well as the risks associated with NOT treating the depression. I believe the pt will benefit from medical intervention and an antidepressant has been appropriately prescribed for this patient. 09/30/2016 Appointment: Carrie Raymond WPtel: [facility] (15 min) Moderate 09/30/2016 Patient Education: Patient Medication Summary Completed 09/30/2016 Visit Plan: Left biceps tendonitis-discussed natural and expected course of this diagnosis and to alert me if symptoms do not resolve or if any worse-xray left shoulder-naproxen twice daily-PT to evalaute and treat Bilateral wrist pain-suspect carpel tunnel-recommend wrist braces at night-call if pain does not resolve or if any worse-patient verbalized understanding of plan. 07/23/2016 Appointment: Angi Rodriguez WPtel: [phone] (15 min) Moderate 07/23/2016 Patient Education: Patient Medication Summary Completed 07/23/2016 Visit Plan: Left shoulder and wrist pain - Icy hot, or tiger balm rub to the area PRN. The pt is to use prn antiinflammatories to manage acute pain. The patient is to call the office if the pain is worsening or does not improve. 06/17/2016 Patient Education: Patient Medication Summary Completed 06/17/2016 Visit Plan: Rash - The patient was instructed to use the antibiotic as per RX. The patient is to call for any change in symptoms, increase in size of the lesion, increase in pain. 05/06/2016 Appointment: Carrie Raymond WPtel: [address] [place] [address] (15 min) Moderate 05/06/2016 Patient Education: Patient Medication Summary Completed 05/06/2016 Visit Plan: Hypertension - well controlled - continue with current medications, continue with no added salt diet. Pt has been encouraged to exercise daily. The pt has been advised to call the office if there are any acute concerns about change in blood pressure readings at home. Bilateral lower extremity lymphedema-refer to OT for evaluation and treatment History of spina bifida with hydrocephalus-sees neurologist in [place]-due for appt Ztfsavkfyteh-skfxaah-goitcsjp miralax 04/07/2016 Appointment: Angi Rodriguez WPtel: [facility] [id number] New Patient 04/07/2016 Patient Education: Patient Medication Summary Completed 04/07/2016 [facility] Requested Referral: Jorje Harden HPtel:[phone] Referral Appointment Confirmed Instructions Comment PT TO EVALUATE AND TREAT XRAY LEFT SHOULDER NAPROXEN 500MG BID X 10 DAYS WITH FOODS WRIST BRACES AT NIGHT . Left biceps tendonitis-discussed natural and expected course of this diagnosis and to alert me if symptoms do not resolve or if any worse-xray left shoulder-naproxen twice daily-PT to evalaute and treat Bilateral wrist pain-suspect carpel tunnel-recommend wrist braces at night-call if pain does not resolve or if any worse-patient verbalized understanding of plan. . Back pain- the patient was instructed in appropriate posture, need for weight loss to alleviate abdominal obesity that is worsening the patient's back pain.. The pt is to use prn antiinflammatories to manage acute pain. The patient is to call the office if the pain is worsening or does not improve. Neck Pain- pt to start with aspercreme or biofreeze to neck three times daily and start neck exercises daily. Appointment with Dr. Harden at 1:40 PM on 03/29 - be there at 1PM to do paperwork. Umbilical hernia - reducible, mildly tender to palpation - no skin or color changes - warm and dry to the touch - will refer to surgeon for evaluation - pt is to notify clinic or go to the ER for any acute changes or concerns. . Insomnia - Pt has been advised to increase the light in the house during the day, and start dimming the lights during the evening hours. Pt has been advised to cut out caffeine after 5pm. Daytime napping worsens night time insomnia. Hypertension - continue with current medications, continue with no added salt diet. Pt has been encouraged to exercise daily. The pt has been advised to call the office if there are any acute concerns about change in blood pressure readings at home. Neck and Back pain - controlled - no changes at this time, pt is to notify clinic if pain becomes uncontrolled, or with any changes or concerns. . Hypertension - uncontrolled - The patient has been counseled to cut back on salt in diet for a no added salt diet, low fat diet, start an exercise program with low weight bearing exercises and higher aerobic activity for heart health. The patient is to check blood pressure readings as an outpatient and either fax , call, or email the readings to the office next week for practitioner to review. The pt is to call for acute concerns. Depression - uncontrolled - Pt has been counseled about the diagnosis of depression, the potential causes, and risks associated with the diagnosis. The pt denies suicidal ideation, or plans. The patient has been counseled about treatment options, and understands the risks associated with treatment of depression, as well as the risks associated with NOT treating the depression. I believe the pt will benefit from medical intervention and an antidepressant has been appropriately prescribed for this patient. . Back pain - Headache - recommended muscle relaxer, stop melatonin, heat to back, monitor symptoms, start therapy for back pain. Hypertension - well controlled - continue with current medications, continue with no added salt diet. Pt has been encouraged to exercise daily. The pt has been advised to call the office if there are any acute concerns about change in blood pressure readings at home. Depression - improved - continue with supportive care, monitor symptoms. . Hypertension - well controlled - continue with current medications, continue with no added salt diet. Pt has been encouraged to exercise daily. The pt has been advised to call the office if there are any acute concerns about change in blood pressure readings at home. Depression - uncontrolled - Pt has been counseled about the diagnosis of depression, the potential causes, and risks associated with the diagnosis. The pt denies suicidal ideation, or plans. The patient has been counseled about treatment options, and understands the risks associated with treatment of depression, as well as the risks associated with NOT treating the depression. I believe the pt will benefit from medical intervention and an antidepressant has been appropriately prescribed for this patient. stop prozac, start cymbalta Ulceration of penis and perineal area - wound care ordered, start catheter. IF penile ulcer does not improve, will refer to Dr. Hargrove. OT AT [facility] TO EVALUATE AND TREAT LYMPHEDEMA DUODERM COCCYX CHANGE Q 3 DAYS AND PRN LOW CONCENTRATED SWEETS DIET, CUT OUT POP MIRALAX 17GM EVERY OTHER DAY . Hypertension - well controlled - continue with current medications, continue with no added salt diet. Pt has been encouraged to exercise daily. The pt has been advised to call the office if there are any acute concerns about change in blood pressure readings at home. Bilateral lower extremity lymphedema-refer to OT for evaluation and treatment History of spina bifida with hydrocephalus-sees neurologist in [place]-due for appt Juunfnnudnwd-btztltw-[id number] miralax . Hypertension - uncontrolled - the patient's medications have been modified as documented in the visit note. The patient has been counseled to cut back on salt in diet for a no added salt diet, low fat diet, start an exercise program with low weight bearing exercises and higher aerobic activity for heart health. The patient is to check blood pressure readings as an outpatient and either fax , call, or email the readings to the office next week for practitioner to review. The pt is to call for acute concerns. History of spina bifida with hydrocephalus- managed by neurology . Hypertension - well controlled - continue with current medications, continue with no added salt diet. Pt has been encouraged to exercise daily. The pt has been advised to call the office if there are any acute concerns about change in blood pressure readings at home. Depression -improved - continue with current management. Penile ulceration - Dr. Hargrove has seen pt - he feels like he is too complicated to have surgery at [facility] - we will therefore refer to [facility] Referral to Dr. Murdock for removal of Peg tube. . Rash - The patient was instructed to use the antibiotic as per RX. The patient is to call for any change in symptoms, increase in size of the lesion, increase in pain. . Left shoulder and wrist pain - Icy hot, or tiger balm rub to the area PRN. The pt is to use prn antiinflammatories to manage acute pain. The patient is to call the office if the pain is worsening or does not improve.
--- OUTSIDE RECORDS SUMMARY | 2018-05-12 20:01 | XMS REPORT | CCD ---
Author Author Angi Rodriguez Organization [facility] Address [address] [place] [address] Phone Care Team Providers Care Director Instrumentation Name Role Phone PP Unavailable CCM Unavailable Summary Purpose Interface Exchange Insurance Providers Payer name Policy type / Coverage type Covered constitution party ID Effective Begin Date Effective End Date WPS Medicare Part B Medicare Part B [id number] Unknown Unknown [employer] - Medicare Part B [id number] Unknown Unknown Family history Father Diagnosis Age At Onset Hyperlipidemia Unknown Hypertension Unknown Social History Social History Element Codes Description Effective Dates Living arrangements Unknown Longterm [facility] 11/05/2017 Marital status Unknown Alondra 04/07/2016 Number of children Unknown 0 04/07/2016 Employment Unknown Currently unemployed 04/07/[address]: 783333265 Never smoker 04/07/[address]: 459700770 Never drinks alcohol 04/07/2016 Allergies, Adverse Reactions, [...] hydrocodone 5 mg-acetaminophen 325 mg tablet RxNorm: 152916 1-2 Tablet(s) PO Q6 as needed 12/30/2017 04/28/2018 Active Cymbalta 30 mg capsule,delayed release RxNorm: 798138 3 Capsule(s) PO daily 12/07/2017 01/31/2018 Active Protonix 40 mg tablet,delayed release RxNorm: 701038 1 Tablet(s) PO daily 10/14/2017 05/11/2018 Active febuxostat 40 mg tablet RxNorm: 208578 1 Tablet(s) PO daily 05/11/2018 Active levetiracetam 1,000 mg tablet RxNorm: 763305 1 Tablet(s) PO BID 10/14/2017 05/11/2018 Active levetiracetam 500 mg tablet RxNorm: 466733 3 Tablet(s) PO BID 10/14/2017 11/12/2017 Inactive aspirin 325 mg tablet RxNorm: 321222 1 Tablet(s) PO daily 201705/11/2018 Active metoprolol tartrate 25 mg tablet RxNorm: 336653 1/2 Tablet(s) PO BID 10/14/2017 11/12/2017 Inactive hydrocodone 5 mg-acetaminophen 325 mg tablet RxNorm: 565528 1 Tablet(s) PO QID as needed 10/14/2017 12/29/2017 Inactive Reglan 10 mg tablet RxNorm: 404576 1 Tablet(s) PO QID 201711/12/2017 Inactive fluoxetine 20 mg tablet RxNorm: 349292 1 Tablet(s) PO daily 10/14/2017 Inactive Cymbalta 30 mg capsule,delayed release RxNorm: 611814 1 Capsule(s) PO daily 10/14/2017 12/06/2017 Inactive Zofran 4 mg tablet RxNorm: 632017 1 Tablet(s) PO TID as needed 09/20/2017 09/29/2017 Inactive hydrocodone 5 mg-acetaminophen 325 mg tablet RxNorm: 912974 1-2 Tablet(s) PO Q6 as needed 09/20/2017 10/12/2017 Inactive naproxen 500 mg tablet RxNorm: 596624 TAKE ONE TABLET BY MOUTH TWICE DAILY NEEDED 03/29/2017 09/24/2017 Inactive Generic For:*NAPROSYN 500 MG TABLET 2016 2:53:48 PM Prozac 10 mg capsule RxNorm: 875922 1 Capsule(s) PO daily 03/2910/13/2017 Inactive hydrochlorothiazide 12.5 mg capsule RxNorm: 482252 1 Capsule(s) PO daily 03/12/2017 04/10/2017 Inactive hydrochlorothiazide 12.5 mg capsule RxNorm: 711748 1 Capsule(s) PO daily 03/12/2017 03/11/2017 Inactive lisinopril 40 mg tablet RxNorm: 706042 1 Tablet(s) PO daily 03/07/2017 Inactive lisinopril 40 mg tablet RxNorm: 611502 1 Tablet(s) PO daily 04/06/2017 Inactive melatonin 3 mg tablet RxNorm: 827613 1 Tablet(s) PO QHS as needed insomnia 03/05/2017 No Stop Date Active Voltaren 1 % topical gel RxNorm: 154557 1 Application TOP QID as needed et at HS 02/23/2017 05/23/2017 Inactive Voltaren 1 % topical gel RxNorm: 698933 1 Application TOP QID as needed et at HS 02/03/2017 02/22/2017 Inactive lisinopril 20 mg tablet RxNorm: 859456 TAKE ONE TABLET BY MOUTH EVERY DAY 01/14/2017 03/05/2017 Inactive Generic For:*PRINIVIL 20 MG TABLET 01/13/2017 2:26: 55 PM lisinopril 20 mg tablet RxNorm: 990311 1 Tablet(s) PO daily 06/201601/13/2017 Inactive lisinopril 10 mg tablet RxNorm: 510143 1 Tablet(s) PO TAKE ONE TABLET BY MOUTH ONE TIME DAILY 11/27/2016 12/14/2016 Inactive Generic For:PRINIVIL 5 MG TABLET pt is out of medication 11/18/2016 3:16:14 PM lisinopril 5 mg tablet RxNorm: 576456 TAKE ONE TABLET BY MOUTH ONE TIME DAILY 11/24/2016 11/26/2016 Inactive Generic For:PRINIVIL 5 MG TABLET pt is out of medication 11/18/2016 3:16:14 PM Prozac 10 mg capsule RxNorm: 245664 1 Capsule(s) PO daily 10/2303/21/2017 Inactive Voltaren 1 % topical gel RxNorm: 790558 1 Application TOP QID as needed et at HS 10/16/2016 02/02/2017 Inactive Prozac 10 mg capsule RxNorm: 350215 1 Capsule(s) PO daily 10/0110/22/2016 Inactive Voltaren 1 % topical gel RxNorm: 091339 1 Application TOP QID as needed et at 09/23/2016 10/15/2016 Inactive Voltaren 1 % topical gel RxNorm: 007622 1 Application TOP QID as needed et at 09/23/2016 09/22/2016 Inactive Voltaren 1 % topical gel RxNorm: 408949 1 Application TOP QID as needed et at 09/23/2016 09/22/2016 Inactive Flonase Allergy Relief 50 mcg/actuation nasal spray, suspension RxNorm: 6950568 1 [place] NASAL each nostril BID as needed 09/11/2016 02/07/2017 Inactive Flonase Allergy Relief 50 mcg/actuation nasal spray, suspension RxNorm: 7135826 1 [place] NASAL each nostril BID as needed 09/11/2016 09/10/2016 Inactive lisinopril 5 mg tablet RxNorm: 350714 TAKE ONE TABLET BY MOUTH ONE TIME DAILY -LOT : for 90 days 08/25/2016 11/22/2016 Inactive naproxen 500 mg tablet RxNorm: 468935 1 Tablet(s) PO BID as needed 06/17/2016 03/28/2017 Inactive Zithromax Z-Robel 250 mg tablet RxNorm: 258669 1 Tablet(s) PO UD 06/05/2016 07/22/2016 Inactive z pack as directed- patient at [facility] Miralax 17 gram/dose oral powder RxNorm: 447935 1 PO BID 2016 No Stop Date Active Bactrim DS 800 mg-160 mg tablet RxNorm: 364943 1 Tablet(s) PO BID 05/06/2016 05/15/2016 Inactive Zithromax Z-Robel 250 mg tablet RxNorm: 071200 1 Tablet(s) PO daily 04/08/2016 04/12/2016 Inactive nystatin 100,000 unit/gram topical cream RxNorm: 490914 1 Gram(s) TOP BID No Start Date Active Tylenol Extra Strength 500 mg tablet RxNorm: 853237 Tablet(s) PO as needed No Start Date Active lactobacillus acidophilus (bulk) RxNorm: 6205 miscellaneous No Start Date Active Zyrtec 10 mg tablet RxNorm: 1072668 1 Tablet(s) PO daily No Start Date Active Pataday 0.2 % eye drops RxNorm: 9432932 1 Drop(s) ophthalmic (eye) daily No Start Date Active Ginkoba M-E oral RxNorm: 971691 oral No Start Date Active Vitamin C 500 mg tablet RxNorm: 718326 1 Tablet(s) PO daily No Start Date Active Calmoseptine 0.44 %-20.6 % topical ointment RxNorm: 561564 1 Application TOP QID as needed No Start Date Active Miralax 17 gram/dose oral powder RxNorm: 399305 1 PO daily No Start Date 05/28/2016 Inactive Flonase 50 mcg/actuation nasal spray,suspension RxNorm: 8365267 1 [place] NASAL BID No Start Date 09/11/2016 Inactive omeprazole 20 mg capsule,delayed release RxNorm: 048236 1 Capsule(s) PO daily No Start Date 10/13/2017 Inactive lisinopril 5 mg tablet RxNorm: 289118 1 Tablet(s) PO daily No Start Date 08/24/2016 Inactive Zofran 4 mg tablet RxNorm: 956753 1 Tablet(s) PO TID as needed No Start Date 09/19/2017 Inactive Zithromax Z-Robel oral RxNorm: oral No Start Date 04/07/2016 Inactive Zithromax Z-Robel 250 mg tablet RxNorm: 752297 1 Tablet(s) PO UD No Start Date 06/04/2016 Inactive z pack as directed- patient at [facility] Medication Administered No Medication Administered data Immunizations [...] thoracic spine ICD-10: M54.6 ICD-9: 724.1 03/04/2017 Other insomnia ICD-10: G47.09 ICD-9: 327.09 03/04/2017 Cervicalgia ICD-10: M54.2 ICD-9: 723.1 03/04/2017 Lumbar spina bifida without hydrocephalus ICD-10: [...] skin eruption ICD-10: R21 ICD-9: 782.1 05/06/2016 Essential (primary) hypertension ICD-10: I10 ICD-9: 401.9 04/07/2016 Hereditary lymphedema ICD-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 ICD-9: 757.0 04/07/2016 Reason For Visit Reason For Visit [...] 12/27/2017 Metabolic Ord15 CALCIUM 9.4 mg/dL 12/27/2017 Cbc With Differential Ord2 WBC 5.52 K/ul 10/15/2017 Cbc With Differential Ord2 RBC 4.23 M/ul 10/15/2017 Cbc With Differential Ord2 HGB 12.0 g/dl 10/15/2017 Cbc With Differential Ord2 Neut% 54.8 % 10/15/2017 Cbc With Differential Ord2 HCT 36.9 % 10/15/2017 Cbc With Differential Ord2 Lymph% 32.2 % 10/15/2017 Cbc With Differential Ord2 MCV 87.2 fl 10/15/2017 Cbc With Differential Ord2 [place]% 8.3 % 10/15/2017 Cbc With Differential Ord2 MCH 28.4 pg 10/15/2017 Cbc With Differential Ord2 MCHC 32.5 pg 10/15/2017 Cbc With Differential Ord2 Eos% 4.3 % 10/15/2017 Cbc With Differential Ord2 Baso% 0.4 % 10/15/2017 Cbc With Differential Ord2 PLT 281 K/ul 10/15/2017 Cbc With Differential Ord2 RDW 13.8 % 10/15/2017 Cbc With Differential Ord2 Neut ABS# 3.02 K/ul 10/15/2017 Cbc With Differential Ord2 Lymph ABS# 1.78 K/ul 10/15/2017 Cbc With Differential Ord2 [place] ABS# 0.5 K/ul 10/15/2017 Cbc With Differential Ord2 Eos ABS# 0.2 K/ul 10/15/2017 Cbc With Differential Ord2 Baso ABS# 0.0 K/ul 10/15/2017 Tsh Ord6 TSH (3rd IS) 2.24 uIU/mL 10/15/2017 Comp Metabolic Qnc903 NA 142 mEq/L 10/15/2017 Comp Metabolic Vbi496 K 4.2 mEq/L 10/15/2017 Comp Metabolic Kay217 CL 107 mEq/L 10/15/2017 Comp Metabolic Zoc565 CO2 27.0 mEq/L 10/15/2017 Comp Metabolic Uce644 ANION GAP 12 10/15/2017 Comp Metabolic Ivs868 GLUCOSE 86 mg/dL 10/15/2017 Comp Metabolic Ycz003 Creat 0.6 mg/dL 10/15/2017 Comp Metabolic Hwt681 eGFR 179 ml/min/1.73m2 10/15/2017 Comp Metabolic Pin281 BUN 13 mg/dL 10/15/2017 Comp Metabolic Cwj362 B/C Ratio 22.8 Ratio 10/15/2017 Comp Metabolic Uyc893 CALCIUM 9.6 mg/dL 10/15/2017 Comp Metabolic Lgg175 ALK PHOS 158 U/L 10/15/2017 Comp Metabolic Xwo821 AST(SGOT) 15 U/L 10/15/2017 Comp Metabolic Xsk532 ALT(SGPT) 29 U/L 10/15/2017 Comp Metabolic Imh007 BILI T 0.2 mg/dL 10/15/2017 Comp Metabolic Efb190 ALBUMIN 3.5 g/dL 10/15/2017 Comp Metabolic Itk462 TPRO 6.9 g/dL 10/15/2017 Comp Metabolic Emy864 GLOB 3.4 g/dL 10/15/2017 Comp Metabolic Zoo156 A/G Ratio 1.1 Ratio 10/15/2017 Comp Metabolic Fty044 Osmo 283 mOsmo 10/15/2017 Renal Izq192 NA 144 mEq/L 09/17/2017 Renal Aed841 K 3.6 mEq/L 09/17/2017 Renal Knm041 CL 104 mEq/L 09/17/2017 Renal Xdd685 CO2 28.0 mEq/L 09/17/2017 Renal Yky461 ANION GAP 16 09/17/2017 Renal Uqy988 Osmo 289 mOsmo 09/17/2017 Renal Qlg945 GLUCOSE 115 mg/dL 09/17/2017 Renal Ctl105 BUN 15 mg/dL 09/17/2017 Renal Fso879 Creat 0.9 mg/dL 09/17/2017 Renal Xut848 eGFR 100 ml/min/1.73m2 09/17/2017 Renal Lpq663 B/C Ratio 16.0 Ratio 09/17/2017 Renal Otl722 CALCIUM 10.4 mg/dL 09/17/2017 Renal Ebo115 PHOS 3.9 mg/dL 09/17/2017 Renal Wsv347 ALBUMIN 4.3 g/dL 09/17/2017 Magnesium Ord90 Mag 1.6 mg/dL 09/17/2017 Cbc With Differential Ord2 WBC 8.22 K/ul 09/17/2017 Cbc With Differential Ord2 RBC 4.86 M/ul 09/17/2017 Cbc With Differential Ord2 HGB 13.9 g/dl 09/17/2017 Cbc With Differential Ord2 HCT 42.9 % 09/17/2017 Cbc With Differential Ord2 Neut% 63.0 % 09/17/2017 Cbc With Differential Ord2 Lymph% 22.5 % 09/17/2017 Cbc With Differential Ord2 MCV 88.3 fl 09/17/2017 Cbc With Differential Ord2 MCH 28.6 pg 09/17/2017 Cbc With Differential Ord2 [place]% 9.9 % 09/17/2017 Cbc With Differential Ord2 Eos% 4.4 % 09/17/2017 Cbc With Differential Ord2 MCHC 32.4 pg 09/17/2017 Cbc With Differential Ord2 PLT 332 K/ul 09/17/2017 Cbc With Differential Ord2 Baso% 0.2 % 09/17/2017 Cbc With Differential Ord2 RDW 14.3 % 09/17/2017 Cbc With Differential Ord2 Neut ABS# 5.18 K/ul 09/17/2017 Cbc With Differential Ord2 Lymph ABS# 1.85 K/ul 09/17/2017 Cbc With Differential Ord2 [place] ABS# 0.8 K/ul 09/17/2017 Cbc With Differential Ord2 Eos ABS# 0.4 K/ul 09/17/2017 Cbc With Differential Ord2 Baso ABS# 0.0 K/ul 09/17/2017 Comp Metabolic Xsp501 NA 138 mEq/L 02/04/2017 Comp Metabolic Pao874 K 4.5 mEq/L 02/04/2017 Comp Metabolic Rby570 CL 98 mEq/L 02/04/2017 Comp Metabolic Tqp461 CO2 30.0 mEq/L 02/04/2017 Comp Metabolic Mdi142 ANION GAP 15 02/04/2017 Comp Metabolic Lbs723 GLUCOSE 99 mg/dL 02/04/2017 Comp Metabolic Kft577 Creat 0.6 mg/dL 02/04/2017 Comp Metabolic Cfv195 eGFR 183 ml/min/1.73m2 02/04/2017 Comp Metabolic Wxm958 BUN 11 mg/dL 02/04/2017 Comp Metabolic Hns256 B/C Ratio 19.6 Ratio 02/04/2017 Comp Metabolic Yml630 CALCIUM 9.5 mg/dL 02/04/2017 Comp Metabolic Egs185 ALK PHOS 59 U/L 02/04/2017 Comp Metabolic Uti430 AST(SGOT) 14 U/L 02/04/2017 Comp Metabolic Hrn933 ALT(SGPT) 15 U/L 02/04/2017 Comp Metabolic Qmo469 BILI T 0.3 mg/dL 02/04/2017 Comp Metabolic Web449 ALBUMIN 4.0 g/dL 02/04/2017 Comp Metabolic Dqn182 TPRO 7.0 g/dL 02/04/2017 Comp Metabolic Ryz673 GLOB 3.0 g/dL 02/04/2017 Comp Metabolic Xyy887 A/G Ratio 1.4 Ratio 02/04/2017 Comp Metabolic Mqd106 Osmo 275 mOsmo 02/04/2017 Review of Systems [...] affect 09/30/2016 None Full Exam - General 1995 Psychiatric appearance Overall: well-groomed, good eye contact [...] data Encounters Encounter Performer Location Codes Date ([id number]) 03484 EST. PATIENT, LEVEL IV Diagnosis: Essential (primary) hypertension[ICD10: I10] Diagnosis: Major depressive disorder, single episode, moderate[ICD10: F32.1] Diagnosis: Muscle spasm of back[ICD10: M62.830] Diagnosis: Other headache syndrome[ICD10: G44.89] [facility], [facility] CPT-4: 34259 12/07/2017 ([id number]) 17497 EST. PATIENT, LEVEL IV Diagnosis: Essential (primary) hypertension[ICD10: I10] Diagnosis: Major depressive disorder, single episode, moderate[ICD10: F32.1] Diagnosis: Pressure ulcer of contiguous site of back, buttock and hip, stage 3[ ICD10: L89.43] [facility], [facility] CPT-4: 91874 11/04/2017 ([id number]) 05415 EST. 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 PATIENT, LEVEL IV Diagnosis: Umbilical hernia without obstruction or gangrene[ICD10: K42.9] [facility] MD, [facility] CPT-4: 29815 03/23/2017 97970 EST. PATIENT, LEVEL IV Diagnosis: Other insomnia[ICD10: G47.09] Diagnosis: Essential (primary) hypertension[ICD10: I10] Diagnosis: Pain in thoracic spine[ICD10: M54.6] Diagnosis: Cervicalgia[ICD10: M54.2] [facility] MD, [facility] CPT-4: 01801 03/04/2017 57085 EST. PATIENT, LEVEL III Diagnosis: Cervicalgia[ICD10: M54.2] Diagnosis: Pain in thoracic spine[ICD10: M54.6] Diagnosis: Muscle spasm of back[ICD10: M62.830] [facility] MD, [facility] CPT-4: 55312 02/10/2017 04849 EST. PATIENT, LEVEL IV Diagnosis: Essential (primary) hypertension[ICD10: I10] Diagnosis: Lumbar spina bifida without hydrocephalus[ICD10: Q05.7] [facility] MD, [facility] CPT-4: 49583 12/16/2016 47152 EST. PATIENT, LEVEL IV Diagnosis: Essential (primary) hypertension[ICD10: I10] Diagnosis: Major depressive disorder, single episode, mild[ICD10: F32.0] Carrie Nuñez MD , [facility] CPT-4: 04789 09/30/2016 ([id number]) 69443 EST. PATIENT, LEVEL III Diagnosis: Bicipital tendinitis, left shoulder[ICD10: M75.22] Diagnosis: Pain in right wrist[ICD10: M25.531] Diagnosis: Pain in left wrist[ICD10: M25.532] [facility] CPT-4: 35680 07/23/2016 31356 EST. PATIENT, LEVEL III Diagnosis: Pain in left shoulder[ICD10: M25.512] Diagnosis: Pain in left wrist[ICD10: M25.532] [facility] CPT-4: 45632 06/17/2016 79396 EST. PATIENT, LEVEL IV Diagnosis: Rash and other nonspecific skin eruption[ICD10: R21] Carrie Nuñez MD, [facility] CPT-4: 08057 05/06/2016 ([id number]) OFFICE VISIT, NEW - LEVEL 4 Diagnosis: Essential (primary) hypertension[ICD10: I10] Diagnosis: Hereditary lymphedema[ICD10: Q82.0] Diagnosis: Slow transit constipation[ICD10: K59.01] Diagnosis: Lumbar spina bifida without hydrocephalus[ICD10: Q05.7] Angi Nuñez MD, [facility] CPT-4: 10536 04/07/2016 Plan of Care Planned Activity Notes [...] monitor symptoms. 12/07/2017 Appointment: Anila Nuñez WPtel: [address] [place], [place] [address] (15 min) Moderate 12/07/2017 Patient Education: Patient Medication Summary Completed 12/07/2017 Referral: [facility] Referral Initiated 11/09/2017 Care Plan: Referral Order SNOMED-CT : [id number] Pending 11/05/2017 Visit Plan: Hypertension - well [...] too complicated to have surgery at [facility] - we will therefore refer to [facility] Referral to Dr. Murdock for removal of Peg tube. 11/04/2017 Appointment: [facility]el[facility] [phone] [facility] [address] (15 min) Moderate 11/04/2017 Patient Education: Patient Medication Summary Completed 11/04/2017 Appointment: Anila Nuñez WPtel: [phone] [facility] (15 min) Moderate 10/28/2017 Visit Plan: Hypertension [...] Dr. Hargrove. 10/14/2017 Appointment: [facility] WPtel: [phone] [facility] [address] [place] (30 min) Complex 10/14/2017 Patient Education: Patient Medication Summary Completed 10/14/2017 Appointment: [facility] WPtel: [phone] [facility] [address] [place] (30 min) Complex 09/21/2017 Referral: Jorje Harden HPtel:[phone] [facility] Referral Completed 03/29/2017 Care Plan: Referral Order SNOMED-CT : [id number] Pending 03/24/2017 Visit Plan: Umbilical hernia - reducible, mildly tender to palpation - no skin or color changes - warm and dry to the touch - will refer to surgeon for evaluation - pt is to notify clinic or go to the ER for any acute changes or concerns. 03/23/2017 Appointment: Carrie Raymond WPtel: [facility] (30 min) Complex 03/23/2017 Patient Education: [...] concerns. 03/04/2017 [facility]ment: [phone] [facility] (30 min) Complex 03/04/2017 Patient Education: Patient [...] this patient. 09/30/2016 Appointment: [facility] [phone] [facility] (15 min) Moderate 09/30/2016 Patient Education: Patient [...] of plan. 07/23/2016 App[facility]ment: [facility] [phone] [facility] [place] (15 min) Moderate 07/23/2016 Patient Education: Patient [...] in pain. 05/06/2016 Appointment: Carrie Raymond WPtel: [facility] (15 min) Moderate 05/06/2016 Patient Education: Patient [...] of spina bifida with hydrocephalus-sees neurologist in [place]-due for appt Zzdoxpuazmxn-xgvmval-gjshezzg miralax 04/07/2016 Appointment: Angi Rodriguez WPtel: [address] [place], [place] [id number] [place] [address] New Patient 04/07/2016 Patient Education: Patient Medication Summary Completed 04/07/2016 Referral: [facility] Referral Appointment Requested Referral: Jorje Harden HPtel:[phone] [facility] Referral Appointment Confirmed Instructions Comment PT TO [...] will refer to Dr. Hargrove. OT AT [facility] TO EVALUATE AND TREAT LYMPHEDEMA DUODERM COCCYX [...] of spina bifida with hydrocephalus-sees neurologist in [place]-due for appt Ivzpfdxmgffy-stqikih-jcvcumlj miralax . Hypertension - uncontrolled - the [...] Carol - we will therefore refer to [facility] Referral to Dr. Murdock for removal [...]
--- OUTSIDE RECORDS SUMMARY | 2018-05-12 20:03 | XMS REPORT | Continuity of Care Document ---
Author Author [facility] Organization [facility] Address Unknown Phone Unavailable Allergies Active Description Code Type Severity Reaction Onset Reported/Identified Relationship to Patient Clinical Status Yes LATEX Drug Allergy N/A N/A Yes LATEX Drug Allergy N/A N/A Yes latex [id number] Drug Allergy Severe HIVES 03/14/2012 Yes latex [id number] Drug Allergy Unknown N/A 03/31/2017 Medications Medication Packaging Start Date Stop Date Route Dosage Sig HYDROCHLOROTHIAZIDE 12/20/2012 12/05/2014 3030 CIPROFLOXACIN HCL 12/20/2012 12/05/2014 1414 NAPROXEN 01/10/2013 6060 AMOXICILLIN ORAL 08/16/2014 08/26/2014 ORAL 4040 twice daily TRAMADOL HCL ORAL 12/05/2014 12/15/2014 ORAL 4040 4 times a day Problems Date Dx Coded Attending Type Code Diagnosis Diagnosed By 04/15/1633 JOHNNY GENAO TIPPLE SUPERVISOR Ot I89.0 LYMPHEDEMA, NOT ELSEWHERE CLASSIFIED 04/23/2016 JOHNNY GENAO TIPPLE SUPERVISOR Ot I89.0 LYMPHEDEMA, NOT ELSEWHERE CLASSIFIED 04/23/2016 JOHNNY GENAO TIPPLE SUPERVISOR Ot I89.0 LYMPHEDEMA, NOT ELSEWHERE CLASSIFIED 05/12/2016 JOHNNY GENAO TIPPLE SUPERVISOR Ot I89.0 LYMPHEDEMA, NOT ELSEWHERE CLASSIFIED 05/13/2016 JOHNNY GENAO TIPPLE SUPERVISOR Ot I89.0 LYMPHEDEMA, NOT ELSEWHERE CLASSIFIED 05/14/2016 JOHNNY GENAO TIPPLE SUPERVISOR Ot I89.0 LYMPHEDEMA, NOT ELSEWHERE CLASSIFIED 06/10/2016 JOHNNY GENAO TIPPLE SUPERVISOR Ot I89.0 LYMPHEDEMA, NOT ELSEWHERE CLASSIFIED 07/01/2016 JOHNNY GENAO TIPPLE SUPERVISOR Ot I89.0 LYMPHEDEMA, NOT ELSEWHERE CLASSIFIED 02/18/2017 MIRIAM SIERRA MD Ot M54.2 CERVICALGIA 02/18/2017 MIRIAM SIERRA MD Ot M54.5 LOW BACK PAIN 03/05/2017 MARIELA MD, MIRIAM A Ot M54.2 CERVICALGIA 03/05/2017 MARIELA HINDS, MIRIAM A Ot M54.5 LOW BACK PAIN 03/09/2017 MARIELA HINDS, MIRIAM A Ot M54.2 CERVICALGIA 03/09/2017 MARIELA HINDS, MIRIAM A Ot M54.5 LOW BACK PAIN 03/31/2017 MARIELA HINDS, MIRIAM Geller Ot M54.2 CERVICALGIA 03/31/2017 MARIELA HINDS, MIRIAM Geller Ot M54.5 LOW BACK PAIN 03/31/2017 RANDEE HINDS, SANIYA T Ot A41.9 SEPSIS, UNSPECIFIED ORGANISM 03/31/2017 RANDEE HINDS, SANIYA T Ot G82.20 PARAPLEGIA, UNSPECIFIED 03/31/2017 RANDEE HINDS, SANIYA T Ot N17.9 ACUTE KIDNEY FAILURE, UNSPECIFIED 03/31/2017 RANDEE HINDS, SANIYA T Ot R10.31 RIGHT LOWER QUADRANT PAIN 03/31/2017 RANDEE HINDS, SANIYA T Ot R65.21 SEVERE SEPSIS WITH SEPTIC SHOCK 03/31/2017 RANDEE HINDS, SANIYA T Ot 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 04/02/2017 RANDEE HINDS, SANIYA T Ot A41.9 SEPSIS, UNSPECIFIED ORGANISM 04/02/2017 RANDEE HINDS, SANIYA T Ot G82.20 PARAPLEGIA, UNSPECIFIED 04/02/2017 RANDEE HINDS, SANIYA T Ot N17.9 ACUTE KIDNEY FAILURE, UNSPECIFIED 04/02/2017 RANDEE HINDS, SANIYA T Ot R10.31 RIGHT LOWER QUADRANT PAIN 04/02/2017 RANDEE HINDS, SANIYA T Ot R65.21 SEVERE SEPSIS WITH SEPTIC SHOCK 04/02/2017 RANDEE HINDS, SANIYA T Ot 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 10/15/2017 MARIELA HINDS, MIRIAM A Ot M54.2 CERVICALGIA 10/15/2017 MARIELA HINDS, MIRIAM Geller Ot M54.5 LOW BACK PAIN 10/15/2017 MARIELA HINDS, MIRIAM Geller Ot M54.2 CERVICALGIA 10/15/2017 MARIELA HINDS, MIRIAM Geller Ot M54.5 LOW BACK PAIN 10/25/2017 THELMA MENDOZA APRN Ot G82.20 PARAPLEGIA, UNSPECIFIED 10/25/2017 THELMA MENDOZA LEAFLET OR NEWSPAPER DELIVERER Ot L89.303 PRESSURE ULCER OF UNSPECIFIED BUTTOCK, S 10/25/2017 THELMA MENDOZA LEAFLET OR NEWSPAPER DELIVERER Ot Q05.9 SPINA BIFIDA, UNSPECIFIED 10/28/2017 WILLIAM PARKS MD Ot L89.93 PRESSURE ULCER OF UNSPECIFIED SITE, STAG 10/28/2017 WILLIAM PARKS MD Ot L98.492 NON-PRS CHRONIC ULCER OF SKIN OF SITES W 10/28/2017 WILLIAM PARKS MD Ot Q05.9 SPINA BIFIDA, UNSPECIFIED 10/28/2017 WILLIAM PARKS MD Ot T81.31XA DISRUPTION OF EXTERNAL OPERATION (SURGIC 11/04/2017 THELMA MENDOZA LEAFLET OR NEWSPAPER DELIVERER Ot L89.93 PRESSURE ULCER OF UNSPECIFIED SITE, STAG 11/04/2017 THELMA MENDOZA LEAFLET OR NEWSPAPER DELIVERER Ot L98.492 NON-PRS CHRONIC ULCER OF SKIN OF SITES W 11/04/2017 THELMA MENDOZA APRN Ot Q05.9 SPINA BIFIDA, UNSPECIFIED 11/04/2017 THELMA MENDOZA LEAFLET OR NEWSPAPER DELIVERER Ot T81.31XD DISRUPTION OF EXTERNAL OPERATION (SURGIC 11/10/2017 THELMA MENDOZA LEAFLET OR NEWSPAPER DELIVERER Ot G82.20 PARAPLEGIA, UNSPECIFIED 11/10/2017 THELMA MENDOZA LEAFLET OR NEWSPAPER DELIVERER Ot L89.303 PRESSURE ULCER OF UNSPECIFIED BUTTOCK, S 11/10/2017 THELMA MENDOZA LEAFLET OR NEWSPAPER DELIVERER Ot Q05.9 SPINA BIFIDA, UNSPECIFIED 11/10/2017 WILLIAM PARKS MD Ot L89.93 PRESSURE ULCER OF UNSPECIFIED SITE, STAG 11/10/2017 WILLIAM PARKS MD Ot L98.492 NON-PRS CHRONIC ULCER OF SKIN OF SITES W 11/10/2017 WILLIAM PARKS MD Ot Q05.9 SPINA BIFIDA, UNSPECIFIED 11/10/2017 WILLIAM PARKS MD Ot T81.31XA DISRUPTION OF EXTERNAL OPERATION (SURGIC 11/15/2017 THELMA MENDOZA LEAFLET OR NEWSPAPER DELIVERER Ot G82.20 PARAPLEGIA, UNSPECIFIED 11/15/2017 THELMA MENDOZA LEAFLET OR NEWSPAPER DELIVERER Ot L89.303 PRESSURE ULCER OF UNSPECIFIED BUTTOCK, S 11/15/2017 THELMA MENDOZA LEAFLET OR NEWSPAPER DELIVERER Ot Q05.9 SPINA BIFIDA, UNSPECIFIED 11/18/2017 WILLIAM PARKS MD Ot L89.93 PRESSURE ULCER OF UNSPECIFIED SITE, STAG 11/18/2017 WILLIAM PARKS MD Ot L98.492 NON-PRS CHRONIC ULCER OF SKIN OF SITES W 11/18/2017 WILLIAM PARKS MD Ot Q05.9 SPINA BIFIDA, UNSPECIFIED 11/18/2017 WILLIAM PARKS MD Ot T81.31XA DISRUPTION OF EXTERNAL OPERATION (SURGIC 11/19/2017 THELMA MENDOZA LEAFLET OR NEWSPAPER DELIVERER Ot L89.93 PRESSURE ULCER OF UNSPECIFIED SITE, STAG 11/19/2017 THELMA MENDOZA LEAFLET OR NEWSPAPER DELIVERER Ot L98.492 NON-PRS CHRONIC ULCER OF SKIN OF SITES W 11/19/2017 THELMA MENDOZA LEAFLET OR NEWSPAPER DELIVERER Ot Q05.9 SPINA BIFIDA, UNSPECIFIED 11/19/2017 THELMA MENDOZA LEAFLET OR NEWSPAPER DELIVERER Ot T81.31XA DISRUPTION OF EXTERNAL OPERATION (SURGIC 11/23/2017 WILLIAM PARKS MD Ot L89.93 PRESSURE ULCER OF UNSPECIFIED SITE, STAG 11/23/2017 WILLIAM PARKS MD Ot L98.492 NON-PRS CHRONIC ULCER OF SKIN OF SITES W 11/23/2017 WILLIAM PARKS MD Ot Q05.9 SPINA BIFIDA, UNSPECIFIED 11/23/2017 WILLIAM PARKS MD Ot T81.31XA DISRUPTION OF EXTERNAL OPERATION (SURGIC 11/23/2017 THELMA MENDOZA LEAFLET OR NEWSPAPER DELIVERER Ot L89.93 PRESSURE ULCER OF UNSPECIFIED SITE, STAG 11/23/2017 THELMA MENDOZA R LEAFLET OR NEWSPAPER DELIVERER Ot L98.492 NON-PRS CHRONIC ULCER OF SKIN OF SITES W 11/23/2017 THELMA MENDOZA LEAFLET OR NEWSPAPER DELIVERER Ot Q05.9 SPINA BIFIDA, UNSPECIFIED 11/23/2017 THELMA MENDOZA LEAFLET OR NEWSPAPER DELIVERER Ot T81.31XD DISRUPTION OF EXTERNAL OPERATION (SURGIC 11/29/2017 WILLIAM PARKS MD Ot L89.93 PRESSURE ULCER OF UNSPECIFIED SITE, STAG 11/29/2017 WILLIAM PARKS MD Ot 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, 11/29/2017 WILLIAM PARKS MD Ot L98.492 NON-PRS CHRONIC ULCER OF SKIN OF SITES W 11/29/2017 WILLIAM PARKS MD Ot Q05.9 SPINA BIFIDA, UNSPECIFIED 11/29/2017 WILLIAM PARKS MD Ot T81.31XA DISRUPTION OF EXTERNAL OPERATION (SURGIC 11/30/2017 WILLIAM PARKS MD Ot L89.93 PRESSURE ULCER OF UNSPECIFIED SITE, STAG 11/30/2017 WILLIAM PARKS MD Ot L98.492 NON-PRS CHRONIC ULCER OF SKIN OF SITES W 11/30/2017 WILLIAM PARKS MD Ot Q05.9 SPINA BIFIDA, UNSPECIFIED 11/30/2017 WILLIAM PARKS MD Ot T81.31XA DISRUPTION OF EXTERNAL OPERATION (SURGIC 12/01/2017 THELMA MENDOZA R LEAFLET OR NEWSPAPER DELIVERER Ot L89.93 PRESSURE ULCER OF UNSPECIFIED SITE, STAG 12/01/2017 THELMA MENDOZA LEAFLET OR NEWSPAPER DELIVERER Ot L98.492 NON-PRS CHRONIC ULCER OF SKIN OF SITES W 12/01/2017 THELMA MENDOZA LEAFLET OR NEWSPAPER DELIVERER Ot Q05.9 SPINA BIFIDA, UNSPECIFIED 12/01/2017 THELMA MENDOZA LEAFLET OR NEWSPAPER DELIVERER Ot T81.31XD DISRUPTION OF EXTERNAL OPERATION (SURGIC 12/02/2017 WILLIAM PARKS MD Ot L98.492 NON-PRS CHRONIC ULCER OF SKIN OF SITES W 12/02/2017 WILLIAM PARKS MD Ot Q05.9 SPINA BIFIDA, UNSPECIFIED 12/02/2017 WILLIAM PARKS MD Ot T81.31XA DISRUPTION OF EXTERNAL OPERATION (SURGIC 12/07/2017 WILLIAM PARKS MD Ot L89.93 PRESSURE ULCER OF UNSPECIFIED SITE, STAG 12/07/2017 WILLIAM PARKS MD Ot L98.492 NON-PRS CHRONIC ULCER OF SKIN OF SITES W 12/07/2017 WILLIAM PARKS MD Ot Q05.9 SPINA BIFIDA, UNSPECIFIED 12/07/2017 WILLIAM PARKS MD Ot T81.31XA DISRUPTION OF EXTERNAL OPERATION (SURGIC 12/08/2017 THELMA MENDOZA R LEAFLET OR NEWSPAPER DELIVERER Ot L89.93 PRESSURE ULCER OF UNSPECIFIED SITE, STAG 12/08/2017 THELMA MENDOZA LEAFLET OR NEWSPAPER DELIVERER Ot L98.492 NON-PRS CHRONIC ULCER OF SKIN OF SITES W 12/08/2017 THELMA MENDOZA LEAFLET OR NEWSPAPER DELIVERER Ot Q05.9 SPINA BIFIDA, UNSPECIFIED 12/08/2017 THELMA MENDOZA LEAFLET OR NEWSPAPER DELIVERER Ot T81.31XA DISRUPTION OF EXTERNAL OPERATION (SURGIC 12/08/2017 KELLY, THELMA R LEAFLET OR NEWSPAPER DELIVERER Ot L98.492 NON-PRS CHRONIC ULCER OF SKIN OF SITES W 12/08/2017 KELLY, THELMA R LEAFLET OR NEWSPAPER DELIVERER Ot Q05.9 SPINA BIFIDA, UNSPECIFIED 12/08/2017 KELLY, THELMA R LEAFLET OR NEWSPAPER DELIVERER Ot T81.31XA DISRUPTION OF EXTERNAL OPERATION (SURGIC 12/14/2017 KELLY THELMA R LEAFLET OR NEWSPAPER DELIVERER Ot L89.93 PRESSURE ULCER OF UNSPECIFIED SITE, STAG 12/14/2017 KELLY THELMA R LEAFLET OR NEWSPAPER DELIVERER Ot L98.492 NON-PRS CHRONIC ULCER OF SKIN OF SITES W 12/14/2017 KELLY, THELMA R LEAFLET OR NEWSPAPER DELIVERER Ot Q05.9 SPINA BIFIDA, UNSPECIFIED 12/14/2017 KELLY, THELMA R LEAFLET OR NEWSPAPER DELIVERER Ot T81.31XA DISRUPTION OF EXTERNAL OPERATION (SURGIC 01/04/2018 KELLY THELMA R LEAFLET OR NEWSPAPER DELIVERER Ot L98.492 NON-PRS CHRONIC ULCER OF SKIN OF SITES W 01/04/2018 KELLY, THELMA R LEAFLET OR NEWSPAPER DELIVERER Ot Q05.9 SPINA BIFIDA, UNSPECIFIED 01/04/2018 KELLY, THELMA R LEAFLET OR NEWSPAPER DELIVERER Ot T81.31XA DISRUPTION OF EXTERNAL OPERATION (SURGIC 01/04/2018 KELLY THELMA R LEAFLET OR NEWSPAPER DELIVERER Ot L98.492 NON-PRS CHRONIC ULCER OF SKIN OF SITES W 01/04/2018 KELLY, THELMA R LEAFLET OR NEWSPAPER DELIVERER Ot Q05.9 SPINA BIFIDA, UNSPECIFIED 01/04/2018 KELLY, THELMA R LEAFLET OR NEWSPAPER DELIVERER Ot T81.31XA DISRUPTION OF EXTERNAL OPERATION (SURGIC 01/06/2018 KELLY THELMA R LEAFLET OR NEWSPAPER DELIVERER Ot L98.492 NON-PRS CHRONIC ULCER OF SKIN OF SITES W 01/06/2018 KELLY, THELMA R LEAFLET OR NEWSPAPER DELIVERER Ot Q05.9 SPINA BIFIDA, UNSPECIFIED 01/06/2018 KELLY, THELMA R LEAFLET OR NEWSPAPER DELIVERER Ot T81.31XA DISRUPTION OF EXTERNAL OPERATION (SURGIC 01/11/2018 CHARLY HINDS, WILLIAM Jamil Ot L98.492 NON-PRS CHRONIC ULCER OF SKIN OF SITES W 01/11/2018 CHARLY HINDS, WILLIAM Jamil Ot Q05.9 SPINA BIFIDA, UNSPECIFIED 01/11/2018 WILLIAM PARKS MD Ot T81.31XA DISRUPTION OF EXTERNAL OPERATION (SURGIC 01/11/2018 Ot L98.492 NON-PRS CHRONIC ULCER OF SKIN OF SITES W 01/11/2018 Ot Q05.9 SPINA BIFIDA , UNSPECIFIED 01/11/2018 Ot T81.31XA DISRUPTION OF EXTERNAL OPERATION (SURGIC 01/11/2018 THELMA MENDOZA APRN Ot L98.492 NON-PRS CHRONIC ULCER OF SKIN OF SITES W 01/11/2018 THELMA MENDOZA APRN Ot Q05.9 SPINA BIFIDA, UNSPECIFIED 01/11/2018 THELMA MENDOZA LEAFLET OR NEWSPAPER DELIVERER Ot T81.31XA DISRUPTION OF EXTERNAL OPERATION (SURGIC 01/14/2018 WILLIAM PARKS MD Ot L89.93 PRESSURE ULCER OF UNSPECIFIED SITE, STAG 01/14/2018 WILLIAM PARKS MD Ot 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, 01/14/2018 WILLIAM PARKS MD Ot L98.492 NON-PRS CHRONIC ULCER OF SKIN OF SITES W 01/14/2018 WILLIAM PARKS MD Ot Q05.9 SPINA BIFIDA, UNSPECIFIED 01/14/2018 WILLIAM PARKS MD Ot T81.31XA DISRUPTION OF EXTERNAL OPERATION (SURGIC 01/14/2018 Ot L98.492 NON-PRS CHRONIC ULCER OF SKIN OF SITES W 01/14/2018 Ot Q05.9 SPINA BIFIDA , UNSPECIFIED 01/14/2018 Ot T81.31XA DISRUPTION OF EXTERNAL OPERATION (SURGIC 01/14/2018 THELMA MENDOZA LEAFLET OR NEWSPAPER DELIVERER Ot L98.492 NON-PRS CHRONIC ULCER OF SKIN OF SITES W 01/14/2018 THELMA MENDOZA APRN Ot Q05.9 SPINA BIFIDA, UNSPECIFIED 01/14/2018 THELMA MENDOZA APRN Ot T81.31XA DISRUPTION OF EXTERNAL OPERATION (SURGIC 01/24/2018 WILLIAM PARKS MD Ot 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, 01/24/2018 WILLIAM PARKS MD Ot L98.492 NON-PRS CHRONIC ULCER OF SKIN OF SITES W 01/24/2018 WILLIAM PARKS MD Ot Q05.9 SPINA BIFIDA, UNSPECIFIED 01/24/2018 WILLIAM PARKS MD Ot T81.31XA DISRUPTION OF EXTERNAL OPERATION (SURGIC 01/26/2018 THELMA MENDOZA APRN Ot 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, 01/26/2018 THELMA MENDOZA APRN Ot L98.492 NON-PRS CHRONIC ULCER OF SKIN OF SITES W 01/26/2018 THELMA MENDOZA LEAFLET OR NEWSPAPER DELIVERER Ot Q05.9 SPINA BIFIDA, UNSPECIFIED 01/26/2018 KELLYTHELMA R LEAFLET OR NEWSPAPER DELIVERER Ot T81.31XA DISRUPTION OF EXTERNAL OPERATION (SURGIC 02/03/2018 Ot L98.492 NON-PRS CHRONIC ULCER OF SKIN OF SITES W 02/03/2018 Ot Q05.9 SPINA BIFIDA , UNSPECIFIED 02/03/2018 Ot T81.31XA DISRUPTION OF EXTERNAL OPERATION (SURGIC 02/03/2018 KELLY THELMA R LEAFLET OR NEWSPAPER DELIVERER Ot L98.492 NON-PRS CHRONIC ULCER OF SKIN OF SITES W 02/03/2018 KELLY THELMA R LEAFLET OR NEWSPAPER DELIVERER Ot Q05.9 SPINA BIFIDA, UNSPECIFIED 02/03/2018 KELLY THELMA R LEAFLET OR NEWSPAPER DELIVERER Ot T81.31XA DISRUPTION OF EXTERNAL OPERATION (SURGIC 02/04/2018 THELMA MENDOZA LEAFLET OR NEWSPAPER DELIVERER Ot L98.492 NON-PRS CHRONIC ULCER OF SKIN OF SITES W 02/04/2018 THELMA MENDOZA LEAFLET OR NEWSPAPER DELIVERER Ot Q05.9 SPINA BIFIDA, UNSPECIFIED 02/04/2018 KELLY THELMA R LEAFLET OR NEWSPAPER DELIVERER Ot T81.31XA DISRUPTION OF EXTERNAL OPERATION (SURGIC 02/07/2018 KELLY THELMA R LEAFLET OR NEWSPAPER DELIVERER Ot 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, 02/07/2018 THELMA MENDOZA LEAFLET OR NEWSPAPER DELIVERER Ot L98.492 NON-PRS CHRONIC ULCER OF SKIN OF SITES W 02/07/2018 THELMA MENDOZA LEAFLET OR NEWSPAPER DELIVERER Ot T81.31XA DISRUPTION OF EXTERNAL OPERATION (SURGIC 02/07/2018 THELMA MENDOZA LEAFLET OR NEWSPAPER DELIVERER Ot Z05.9 OBS EVAL OF NB FOR UNSP SUSPECTED COND 02/08/2018 Ot L98.492 NON-PRS CHRONIC ULCER OF SKIN OF SITES W 02/08/2018 Ot Q05.9 SPINA BIFIDA , UNSPECIFIED 02/08/2018 Ot T81.31XA DISRUPTION OF EXTERNAL OPERATION (SURGIC 02/08/2018 THELMA MENDOZA R LEAFLET OR NEWSPAPER DELIVERER Ot L98.492 NON-PRS CHRONIC ULCER OF SKIN OF SITES W 02/08/2018 THELMA MENDOZA R LEAFLET OR NEWSPAPER DELIVERER Ot Q05.9 SPINA BIFIDA, UNSPECIFIED 02/08/2018 KELLYTHELMA R LEAFLET OR NEWSPAPER DELIVERER Ot T81.31XA DISRUPTION OF EXTERNAL OPERATION (SURGIC 02/08/2018 THELMA MENDOZA LEAFLET OR NEWSPAPER DELIVERER Ot L98.492 NON-PRS CHRONIC ULCER OF SKIN OF SITES W 02/08/2018 THELMA MENDOZA LEAFLET OR NEWSPAPER DELIVERER Ot Q05.9 SPINA BIFIDA, UNSPECIFIED 02/08/2018 THELMA MENDOZA LEAFLET OR NEWSPAPER DELIVERER Ot T81.31XA DISRUPTION OF EXTERNAL OPERATION (SURGIC 02/09/2018 WILLIAM PARKS MD Ot 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, 02/09/2018 WILLIAM PARKS MD Ot L98.492 NON-PRS CHRONIC ULCER OF SKIN OF SITES W 02/09/2018 WILLIAM PARKS MD Ot Q05.9 SPINA BIFIDA, UNSPECIFIED 02/09/2018 WILLIAM PARKS MD Ot T81.31XA DISRUPTION OF EXTERNAL OPERATION (SURGIC 02/10/2018 THELMA MENDOZA LEAFLET OR NEWSPAPER DELIVERER Ot 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, 02/10/2018 THELMA MENDOZA LEAFLET OR NEWSPAPER DELIVERER Ot L98.492 NON-PRS CHRONIC ULCER OF SKIN OF SITES W 02/10/2018 THELMA MENDOZA LEAFLET OR NEWSPAPER DELIVERER Ot Q05.9 SPINA BIFIDA, UNSPECIFIED 02/10/2018 KELLY THELMA R LEAFLET OR NEWSPAPER DELIVERER Ot T81.31XA DISRUPTION OF EXTERNAL OPERATION (SURGIC 02/11/2018 THELMA MENDOZA LEAFLET OR NEWSPAPER DELIVERER Ot 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, 02/11/2018 THELMA MENDOZA LEAFLET OR NEWSPAPER DELIVERER Ot L98.492 NON-PRS CHRONIC ULCER OF SKIN OF SITES W 02/11/2018 KELLY THELMA R LEAFLET OR NEWSPAPER DELIVERER Ot T81.31XA DISRUPTION OF EXTERNAL OPERATION (SURGIC 02/16/2018 WILLIAM PARKS MD Ot 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, 02/16/2018 WILLIAM PARKS MD Ot L98.492 NON-PRS CHRONIC ULCER OF SKIN OF SITES W 02/16/2018 WILLIAM PARKS MD Ot Q05.9 SPINA BIFIDA, UNSPECIFIED 02/16/2018 WILLIAM PARKS MD Ot T81.31XA DISRUPTION OF EXTERNAL OPERATION (SURGIC 02/16/2018 Ot L98.492 NON-PRS CHRONIC ULCER OF SKIN OF SITES W 02/16/2018 Ot Q05.9 SPINA BIFIDA , UNSPECIFIED 02/16/2018 Ot T81.31XA DISRUPTION OF EXTERNAL OPERATION (SURGIC 02/18/2018 KELLY, THELMA R LEAFLET OR NEWSPAPER DELIVERER Ot 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, 02/18/2018 KELLY, THELMA R LEAFLET OR NEWSPAPER DELIVERER Ot L98.492 NON-PRS CHRONIC ULCER OF SKIN OF SITES W 02/18/2018 KELLY, THELMA R LEAFLET OR NEWSPAPER DELIVERER Ot Q05.9 SPINA BIFIDA, UNSPECIFIED 02/18/2018 KELLY, THELMA R LEAFLET OR NEWSPAPER DELIVERER Ot T81.31XA DISRUPTION OF EXTERNAL OPERATION (SURGIC 03/01/2018 KELLY, THELMA R LEAFLET OR NEWSPAPER DELIVERER Ot 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, 03/01/2018 KELLY, THELMA R LEAFLET OR NEWSPAPER DELIVERER Ot L98.492 NON-PRS CHRONIC ULCER OF SKIN OF SITES W 03/01/2018 KELLY, THELMA R LEAFLET OR NEWSPAPER DELIVERER Ot T81.31XA DISRUPTION OF EXTERNAL OPERATION (SURGIC 03/01/2018 KELLY, THELMA R LEAFLET OR NEWSPAPER DELIVERER Ot 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, 03/01/2018 KELLY THELMA R LEAFLET OR NEWSPAPER DELIVERER Ot L98.492 NON-PRS CHRONIC ULCER OF SKIN OF SITES W 03/01/2018 KELLY THELMA R LEAFLET OR NEWSPAPER DELIVERER Ot Q05.9 SPINA BIFIDA, UNSPECIFIED 03/01/2018 KELLY, THELMA R LEAFLET OR NEWSPAPER DELIVERER Ot T81.31XA DISRUPTION OF EXTERNAL OPERATION (SURGIC 03/04/2018 WILLIAM PARKS MD Ot E11.622 TYPE 2 DIABETES MELLITUS WITH OTHER SKIN 03/04/2018 WILLIAM PARKS MD Ot L98.492 NON-PRS CHRONIC ULCER OF SKIN OF SITES W 03/04/2018 WILLIAM PARKS MD Ot Q05.9 SPINA BIFIDA, UNSPECIFIED 03/04/2018 WILLIAM PARKS MD Ot T81.31XA DISRUPTION OF EXTERNAL OPERATION (SURGIC 03/07/2018 WILLIAM PARKS MD Ot E11.622 TYPE 2 DIABETES MELLITUS WITH OTHER SKIN 03/07/2018 WILLIAM PARKS MD Ot E11.662 03/07/2018 WILLIAM PARKS MD Ot L98.492 NON-PRS CHRONIC ULCER OF SKIN OF SITES W 03/07/2018 WILLIAM PARKS MD Ot Q05.9 SPINA BIFIDA, UNSPECIFIED 03/07/2018 WILLIAM PARKS MD Ot T81.31XA DISRUPTION OF EXTERNAL OPERATION (SURGIC 03/07/2018 KELLY, THELMA R LEAFLET OR NEWSPAPER DELIVERER Ot 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, 03/07/2018 KELLY THELMA R LEAFLET OR NEWSPAPER DELIVERER Ot L98.492 NON-PRS CHRONIC ULCER OF SKIN OF SITES W 03/07/2018 KELLY, THELMA R LEAFLET OR NEWSPAPER DELIVERER Ot T81.31XA DISRUPTION OF EXTERNAL OPERATION (SURGIC 03/07/2018 KELLY, THELMA R LEAFLET OR NEWSPAPER DELIVERER Ot 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, 03/07/2018 KELLY THELMA R LEAFLET OR NEWSPAPER DELIVERER Ot L98.492 NON-PRS CHRONIC ULCER OF SKIN OF SITES W 03/07/2018 KELLY, THELMA R LEAFLET OR NEWSPAPER DELIVERER Ot Q05.9 SPINA BIFIDA, UNSPECIFIED 03/07/2018 KELLY, THELMA R LEAFLET OR NEWSPAPER DELIVERER Ot T81.31XA DISRUPTION OF EXTERNAL OPERATION (SURGIC 03/10/2018 KELLY, THELMA R LEAFLET OR NEWSPAPER DELIVERER Ot E11.622 TYPE 2 DIABETES MELLITUS WITH OTHER SKIN 03/10/2018 KELLY, THELMA R LEAFLET OR NEWSPAPER DELIVERER Ot L88 PYODERMA GANGRENOSUM 03/10/2018 KELLY THELMA R LEAFLET OR NEWSPAPER DELIVERER Ot L98.492 NON-PRS CHRONIC ULCER OF SKIN OF SITES W 03/10/2018 KELLY, THELMA R LEAFLET OR NEWSPAPER DELIVERER Ot Q05.9 SPINA BIFIDA, UNSPECIFIED 03/10/2018 KELLY, THELMA R LEAFLET OR NEWSPAPER DELIVERER Ot T81.31XA DISRUPTION OF EXTERNAL OPERATION (SURGIC 03/15/2018 KELLY THELMA R LEAFLET OR NEWSPAPER DELIVERER Ot 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, 03/15/2018 KELLY THELMA R LEAFLET OR NEWSPAPER DELIVERER Ot L98.492 NON-PRS CHRONIC ULCER OF SKIN OF SITES W 03/15/2018 KELLY THELMA R LEAFLET OR NEWSPAPER DELIVERER Ot Q05.9 SPINA BIFIDA, UNSPECIFIED 03/15/2018 KELLY, THELMA R LEAFLET OR NEWSPAPER DELIVERER Ot T81.31XA DISRUPTION OF EXTERNAL OPERATION (SURGIC 03/16/2018 KELLY, THELMA R LEAFLET OR NEWSPAPER DELIVERER Ot E11.622 TYPE 2 DIABETES MELLITUS WITH OTHER SKIN 03/16/2018 KELLY, THELMA R LEAFLET OR NEWSPAPER DELIVERER Ot L88 PYODERMA GANGRENOSUM 03/16/2018 KELLY, THELMA R LEAFLET OR NEWSPAPER DELIVERER Ot L98.492 NON-PRS CHRONIC ULCER OF SKIN OF SITES W 03/16/2018 KELLY, THELMA R LEAFLET OR NEWSPAPER DELIVERER Ot Q05.9 SPINA BIFIDA, UNSPECIFIED 03/16/2018 KELLY, THELMA R LEAFLET OR NEWSPAPER DELIVERER Ot T81.31XA DISRUPTION OF EXTERNAL OPERATION (SURGIC 03/23/2018 KELLY THELMA R LEAFLET OR NEWSPAPER DELIVERER Ot E11.622 TYPE 2 DIABETES MELLITUS WITH OTHER SKIN 03/23/2018 KELLY, THELMA R LEAFLET OR NEWSPAPER DELIVERER Ot L88 PYODERMA GANGRENOSUM 03/23/2018 KELLY THELMA R LEAFLET OR NEWSPAPER DELIVERER Ot L98.492 NON-PRS CHRONIC ULCER OF SKIN OF SITES W 03/23/2018 KELLY THELMA R LEAFLET OR NEWSPAPER DELIVERER Ot Q05.9 SPINA BIFIDA, UNSPECIFIED 03/23/2018 KELLY THELMA R LEAFLET OR NEWSPAPER DELIVERER Ot T81.31XA DISRUPTION OF EXTERNAL OPERATION (SURGIC 03/25/2018 WILLIAM PARKS MD Ot E11.622 TYPE 2 DIABETES MELLITUS WITH OTHER SKIN 03/25/2018 WILLIAM PARKS MD, Ot L98.492 NON-PRS CHRONIC ULCER OF SKIN OF SITES W 03/25/2018 WILLIAM PARKS MD Ot Q05.9 SPINA BIFIDA, UNSPECIFIED 03/25/2018 WILLIAM PARKS MD Ot T81.31XA DISRUPTION OF EXTERNAL OPERATION (SURGIC 03/31/2018 KELLY THELMA R LEAFLET OR NEWSPAPER DELIVERER Ot E11.622 TYPE 2 DIABETES MELLITUS WITH OTHER SKIN 03/31/2018 KELLY THELMA R LEAFLET OR NEWSPAPER DELIVERER Ot L88 PYODERMA GANGRENOSUM 03/31/2018 KELLY THELMA R LEAFLET OR NEWSPAPER DELIVERER Ot L98.492 NON-PRS CHRONIC ULCER OF SKIN OF SITES W 03/31/2018 KELLY THELMA R LEAFLET OR NEWSPAPER DELIVERER Ot Q05.9 SPINA BIFIDA, UNSPECIFIED 03/31/2018 KELLY THELMA R LEAFLET OR NEWSPAPER DELIVERER Ot T81.31XA DISRUPTION OF EXTERNAL OPERATION (SURGIC 03/31/2018 KELLY THELMA R LEAFLET OR NEWSPAPER DELIVERER Ot E11.622 TYPE 2 DIABETES MELLITUS WITH OTHER SKIN 03/31/2018 KELLY THELMA R LEAFLET OR NEWSPAPER DELIVERER Ot L88 PYODERMA GANGRENOSUM 03/31/2018 KELLY THELMA R LEAFLET OR NEWSPAPER DELIVERER Ot L98.492 NON-PRS CHRONIC ULCER OF SKIN OF SITES W 03/31/2018 KELLY THELMA R LEAFLET OR NEWSPAPER DELIVERER Ot T81.31XA DISRUPTION OF EXTERNAL OPERATION (SURGIC 03/31/2018 KELLY THELMA R LEAFLET OR NEWSPAPER DELIVERER Ot Z05.9 OBS EVAL OF NB FOR UNSP SUSPECTED COND 04/01/2018 WILLIAM PARKS MD Ot E11.622 TYPE 2 DIABETES MELLITUS WITH OTHER SKIN 04/01/2018 CHARLY MD, WILLIAM G Ot L98.492 NON-PRS CHRONIC ULCER OF SKIN OF SITES W 04/01/2018 WILLIAM PARKS MD Ot Q05.9 SPINA BIFIDA, UNSPECIFIED 04/01/2018 WILLIAM PARKS MD Ot T81.31XA DISRUPTION OF EXTERNAL OPERATION (SURGIC 04/02/2018 KELLY, THELMA R LEAFLET OR NEWSPAPER DELIVERER Ot E11.622 TYPE 2 DIABETES MELLITUS WITH OTHER SKIN 04/02/2018 KELLY, THELMA R LEAFLET OR NEWSPAPER DELIVERER Ot L88 PYODERMA GANGRENOSUM 04/02/2018 KELLY THELMA R LEAFLET OR NEWSPAPER DELIVERER Ot L98.492 NON-PRS CHRONIC ULCER OF SKIN OF SITES W 04/02/2018 KELLY, THELMA R LEAFLET OR NEWSPAPER DELIVERER Ot Q05.9 SPINA BIFIDA, UNSPECIFIED 04/02/2018 KELLY, THELMA R LEAFLET OR NEWSPAPER DELIVERER Ot T81.31XA DISRUPTION OF EXTERNAL OPERATION (SURGIC 04/06/2018 KELLY, THELMA R LEAFLET OR NEWSPAPER DELIVERER Ot E11.622 TYPE 2 DIABETES MELLITUS WITH OTHER SKIN 04/06/2018 KELLY, THELMA R LEAFLET OR NEWSPAPER DELIVERER Ot L88 PYODERMA GANGRENOSUM 04/06/2018 KELLY THELMA R LEAFLET OR NEWSPAPER DELIVERER Ot L98.492 NON-PRS CHRONIC ULCER OF SKIN OF SITES W 04/06/2018 KELLY, THELMA R LEAFLET OR NEWSPAPER DELIVERER Ot Q05.9 SPINA BIFIDA, UNSPECIFIED 04/06/2018 KELLY, THELMA R LEAFLET OR NEWSPAPER DELIVERER Ot T81.31XA DISRUPTION OF EXTERNAL OPERATION (SURGIC 04/06/2018 KELLY, THELMA R LEAFLET OR NEWSPAPER DELIVERER Ot E11.622 TYPE 2 DIABETES MELLITUS WITH OTHER SKIN 04/06/2018 KELLY, THELMA R LEAFLET OR NEWSPAPER DELIVERER Ot L88 PYODERMA GANGRENOSUM 04/06/2018 KELLY THELMA R LEAFLET OR NEWSPAPER DELIVERER Ot L98.492 NON-PRS CHRONIC ULCER OF SKIN OF SITES W 04/06/2018 KELLY, THELMA R LEAFLET OR NEWSPAPER DELIVERER Ot Q05.9 SPINA BIFIDA, UNSPECIFIED 04/06/2018 KELLY, THELMA R LEAFLET OR NEWSPAPER DELIVERER Ot T81.31XA DISRUPTION OF EXTERNAL OPERATION (SURGIC 04/11/2018 KELLY, THELMA R LEAFLET OR NEWSPAPER DELIVERER Ot E11.622 TYPE 2 DIABETES MELLITUS WITH OTHER SKIN 04/11/2018 KELLY, THELMA R LEAFLET OR NEWSPAPER DELIVERER Ot L88 PYODERMA GANGRENOSUM 04/11/2018 KELLY, THELMA R LEAFLET OR NEWSPAPER DELIVERER Ot L98.492 NON-PRS CHRONIC ULCER OF SKIN OF SITES W 04/11/2018 KELLY, THELMA R LEAFLET OR NEWSPAPER DELIVERER Ot T81.31XA DISRUPTION OF EXTERNAL OPERATION (SURGIC 04/20/2018 KELLY, THELMA R LEAFLET OR NEWSPAPER DELIVERER Ot E11.622 TYPE 2 DIABETES MELLITUS WITH OTHER SKIN 04/20/2018 KELLY, THELMA R LEAFLET OR NEWSPAPER DELIVERER Ot L88 PYODERMA GANGRENOSUM 04/20/2018 KELLY, THELMA R LEAFLET OR NEWSPAPER DELIVERER Ot L98.492 NON-PRS CHRONIC ULCER OF SKIN OF SITES W 04/20/2018 KELLY, THELMA R LEAFLET OR NEWSPAPER DELIVERER Ot Q05.9 SPINA BIFIDA, UNSPECIFIED 04/20/2018 KELLY, THELMA R LEAFLET OR NEWSPAPER DELIVERER Ot T81.31XA DISRUPTION OF EXTERNAL OPERATION (SURGIC 04/28/2018 KELLY, THELMA R LEAFLET OR NEWSPAPER DELIVERER Ot E11.622 TYPE 2 DIABETES MELLITUS WITH OTHER SKIN 04/28/2018 KELLY, THELMA R LEAFLET OR NEWSPAPER DELIVERER Ot L88 PYODERMA GANGRENOSUM 04/28/2018 KELLY, THELMA R LEAFLET OR NEWSPAPER DELIVERER Ot L98.492 NON-PRS CHRONIC ULCER OF SKIN OF SITES W 04/28/2018 KELLY, THELMA R LEAFLET OR NEWSPAPER DELIVERER Ot Q05.9 SPINA BIFIDA, UNSPECIFIED 04/28/2018 KELLY, THELMA R LEAFLET OR NEWSPAPER DELIVERER Ot T81.31XA DISRUPTION OF EXTERNAL OPERATION (SURGIC 04/28/2018 KELLY, THELMA R LEAFLET OR NEWSPAPER DELIVERER Ot E11.622 TYPE 2 DIABETES MELLITUS WITH OTHER SKIN 04/28/2018 KELLY, THELMA R LEAFLET OR NEWSPAPER DELIVERER Ot L88 PYODERMA GANGRENOSUM 04/28/2018 KELLY, THELMA R LEAFLET OR NEWSPAPER DELIVERER Ot L98.492 NON-PRS CHRONIC ULCER OF SKIN OF SITES W 04/28/2018 KELLY, THELMA R LEAFLET OR NEWSPAPER DELIVERER Ot T81.31XA DISRUPTION OF EXTERNAL OPERATION (SURGIC 05/03/2018 KELLY, THELMA R LEAFLET OR NEWSPAPER DELIVERER Ot E11.622 TYPE 2 DIABETES MELLITUS WITH OTHER SKIN 05/03/2018 KELLY, THELMA R LEAFLET OR NEWSPAPER DELIVERER Ot L88 PYODERMA GANGRENOSUM 05/03/2018 KELLY, THELMA R LEAFLET OR NEWSPAPER DELIVERER Ot L98.492 NON-PRS CHRONIC ULCER OF SKIN OF SITES W 05/03/2018 KELLY, THELMA R LEAFLET OR NEWSPAPER DELIVERER Ot Q05.9 SPINA BIFIDA, UNSPECIFIED 05/03/2018 KELLY, THELMA R LEAFLET OR NEWSPAPER DELIVERER Ot T81.31XA DISRUPTION OF EXTERNAL OPERATION (SURGIC 05/03/2018 KELLY, THELMA R LEAFLET OR NEWSPAPER DELIVERER Ot E11.622 TYPE 2 DIABETES MELLITUS WITH OTHER SKIN 05/03/2018 KELLY, THELMA R LEAFLET OR NEWSPAPER DELIVERER Ot L88 PYODERMA GANGRENOSUM 05/03/2018 THELMA MENDOZA LEAFLET OR NEWSPAPER DELIVERER Ot L98.492 NON-PRS CHRONIC ULCER OF SKIN OF SITES W 05/03/2018 THELMA MENDOZA LEAFLET OR NEWSPAPER DELIVERER Ot T81.31XA DISRUPTION OF EXTERNAL OPERATION (SURGIC 05/04/2018 THELMA MENDOZA LEAFLET OR NEWSPAPER DELIVERER Ot E11.622 TYPE 2 DIABETES MELLITUS WITH OTHER SKIN 05/04/2018 THELMA MENDOZA LEAFLET OR NEWSPAPER DELIVERER Ot L88 PYODERMA GANGRENOSUM 05/04/2018 THELMA MENDOZA LEAFLET OR NEWSPAPER DELIVERER Ot L98.492 NON-PRS CHRONIC ULCER OF SKIN OF SITES W 05/04/2018 THELMA MENDOZA LEAFLET OR NEWSPAPER DELIVERER Ot Q05.9 SPINA BIFIDA, UNSPECIFIED 05/04/2018 THELMA MENDOZA LEAFLET OR NEWSPAPER DELIVERER Ot T81.31XA DISRUPTION OF EXTERNAL OPERATION (SURGIC Procedures There is no data. Results Test Result Range Complete blood count (CBC) with automated white blood cell (WBC) differential - 03/31/17 14:18 Blood leukocytes automated count (number/volume) 29.9 10*3/uL 4.3-11.0 Blood erythrocytes automated count (number/volume) 5.40 10*6/uL 4.35-5.85 Venous blood hemoglobin measurement (mass/volume) 14.9 g/dL 13.3-17.7 Blood hematocrit (volume fraction) 44 % 40-54 Automated erythrocyte mean corpuscular volume 81 [foz_us] 80-99 Automated erythrocyte mean corpuscular hemoglobin (mass per erythrocyte) 28 pg 25-34 Automated erythrocyte mean corpuscular hemoglobin concentration measurement ( mass/volume) 34 g/dL 32-36 Automated erythrocyte distribution width ratio 13.9 % 10.0-14.5 Automated blood platelet count (count/volume) 520 10*3/uL 130-400 Automated blood platelet mean volume measurement 9.5 [foz_us] 7.4-10.4 Automated blood neutrophils/100 leukocytes 86 % 42-75 Automated blood lymphocytes/100 leukocytes 6 % 12-44 Blood monocytes/100 leukocytes 8 % 0-12 Automated blood eosinophils/100 leukocytes 0 % 0-10 Automated blood basophils/100 leukocytes 0 % 0-10 Blood neutrophils automated count (number/volume) 25.8 10*3 1.8-7.8 Blood lymphocytes automated count (number/volume) 1.8 10*3 1.0-4.0 Blood monocytes automated count (number/volume) 2.2 10*3 0.0-1.0 Automated eosinophil count 0.0 10*3/uL 0.0-0.3 Automated blood basophil count (count/volume) 0.0 10*3/uL 0.0-0.1 Blood lactic acid measurement (moles/volume) - 03/31/17 14:18 Blood lactic acid measurement (moles/volume) 3.80 mmol/L 0.50-2.00 Blood manual differential performed detection - 03/31/17 14:18 Blood monocytes/100 leukocytes 4 % NRG Manual blood segmented neutrophils/100 leukocytes 55 % NRG Blood band neutrophils/100 leukocytes 29 % NRG Manual blood lymphocytes/100 leukocytes 11 % NRG Manual eosinophils/100 leukocytes in nose 0 % NRG Manual blood basophils/100 leukocytes 0 % NRG Blood lymphocytes variant/100 leukocytes 1 % NRG Blood erythrocyte morphology finding identification NORMAL NRG Blood toxic granules detection by light microscopy 1+ NRG Blood platelet clump detection by light microscopy MODERATE NRG Bacterial blood culture - 03/31/17 14:18 Bacterial blood culture NG NRG Comprehensive metabolic panel - 03/31/17 14:41 Serum or plasma sodium measurement (moles/volume) 136 mmol/L 135-145 Serum or plasma potassium measurement (moles/volume) 4.8 mmol/L 3.6-5.0 Serum or plasma chloride measurement (moles/volume) 100 mmol/L 98-107 Carbon dioxide 19 mmol/L 21-32 Serum or plasma anion gap determination (moles/volume) 17 mmol/L 5-14 Serum or plasma urea nitrogen measurement (mass/volume) 46 mg/dL 7-18 Serum or plasma creatinine measurement (mass/volume) 3.19 mg/dL 0.60-1.30 Serum or plasma urea nitrogen/creatinine mass ratio 14 NRG Serum or plasma creatinine measurement with calculation of estimated glomerular filtration rate 23 NRG Serum or plasma glucose measurement (mass/volume) 101 mg/dL 70-105 Serum or plasma calcium measurement (mass/volume) 9.7 mg/dL 8.5-10.1 Serum or plasma total bilirubin measurement (mass/volume) 0.6 mg/dL 0.1-1.0 Serum or plasma alkaline phosphatase measurement (enzymatic activity/volume) 57 U/L 40-136 Serum or plasma aspartate aminotransferase measurement (enzymatic activity/ volume) 39 U/L 5-34 Serum or plasma alanine aminotransferase measurement (enzymatic activity/volume ) 42 U/L 0-55 Serum or plasma protein measurement (mass/volume) 7.8 g/dL 6.4-8.2 Serum or plasma albumin measurement (mass/volume) 4.0 g/dL 3.2-4.5 PT panel in platelet poor plasma by coagulation assay - 03/31/17 14:41 Prothrombin time (PT) in platelet poor plasma by coagulation assay 14.4 s 12.2-14.7 INR in platelet poor plasma or blood by coagulation assay 1.1 0.8-1.4 Activated partial thromboplastin time (aPTT) in platelet poor plasma bycoagulation assay - 03/31/17 14:41 Activated partial thromboplastin time (aPTT) in platelet poor plasma bycoagulation assay 36 s 24-35 Bacterial blood culture - 03/31/17 14:41 Bacterial blood culture NG NRG Complete urinalysis with reflex to culture - 03/31/17 15:30 Urine color determination BREANA NRG Urine clarity determination SLIGHTLY CLOUDY NRG Urine pH measurement by test strip 5 5-9 Specific gravity of urine by test strip 1.025 1.016- 1.022 Urine protein assay by test strip, semi-quantitative 3+ NEGATIVE Urine glucose detection by automated test strip NEGATIVE NEGATIVE Erythrocytes detection in urine sediment by light microscopy 1+ NEGATIVE Urine ketones detection by automated test strip 1+ NEGATIVE Urine nitrite detection by test strip POSITIVE NEGATIVE Urine total bilirubin detection by test strip 2+ NEGATIVE Urine urobilinogen measurement by automated test strip (mass/volume) 4 mg/dL NORMAL Urine leukocyte esterase detection by dipstick 2+ NEGATIVE Automated urine sediment erythrocyte count by microscopy (number/high power field) RARE NRG Automated urine sediment leukocyte count by microscopy (number/high power field ) [HPF] NRG Bacteria detection in urine sediment by light microscopy NEGATIVE NRG Squamous epithelial cells detection in urine sediment by light microscopy 10-25 NRG Crystals detection in urine sediment by light microscopy PRESENT NRG Casts detection in urine sediment by light microscopy NONE NRG Mucus detection in urine sediment by light microscopy NEGATIVE NRG Complete urinalysis with reflex to culture YES NRG Amorphous sediment detection in urine sediment by light microscopy MOD ANNALISA URATES NRG Bacterial urine culture - 03/31/17 15:30 Bacterial urine culture NG NRG Bacteria identification in isolate by anaerobe culture - 10/27/17 10:37 Bacteria identification in isolate by anaerobe culture NOANA NRG Gram stain microscopy - 10/27/17 10:37 GRAM STAIN RESULT NO WBC'S OR BACTERIA OBSERVED NRG Bacteria identification in wound by culture - 10/27/17 10:37 Bacteria identification in wound by culture [id number] NR FREE TEXT EXTERNAL SENT TO REF. LAB 10-30-2017 NRG QUANTITY OF GROWTH Scant Growth NRG MRSA AGAR MRSA isolated (Screening test for MRSA is positive) NR FREE TEXT ENTRY 2 SENSITIVITY REPORTED AT 0849, 10-29-17 NRG CALL POSITIVES (F1 HELP) CALLED TO [facility] AT 1317, 10-28-2017/KD NR Bacterial susceptibility panel - 10/27/17 10:37 Oxacillin susceptibility test by minimum inhibitory concentration > = NRG Gentamicin susceptibility test by minimum inhibitory concentration < = NRG Clindamycin susceptibility test by minimum inhibitory concentration >= NRG Erythromycin susceptibility test by minimum inhibitory concentration >= NRG Trimethoprim/sulfamethoxazole susceptibility test by minimum inhibitoryconcentration S NRG Vancomycin susceptibility test by minimum inhibitory concentration < = NRG Levofloxacin susceptibility test by minimum inhibitory concentration >= NRG Rifampin susceptibility test by minimum inhibitory concentration <= NRG Tetracycline susceptibility test by minimum inhibitory concentration <= NRG Linezolid susceptibility test by minimum inhibitory concentration 2 NR Bacterial susceptibility panel - 10/27/17 10:37 Gentamicin susceptibility test by minimum inhibitory concentration > = NRG Trimethoprim/sulfamethoxazole susceptibility test by minimum inhibitoryconcentration R NRG Ampicillin susceptibility test by minimum inhibitory concentration > = NRG Tobramycin susceptibility test by minimum inhibitory concentration 8 NRG Cefazolin susceptibility test by minimum inhibitory concentration > = NRG Ceftriaxone susceptibility test by minimum inhibitory concentration S NRG Ampicillin/sulbactam susceptibility test by minimum inhibitory concentration R NRG Piperacillin/tazobactam susceptibility test by minimum inhibitory concentration S NRG Ciprofloxacin susceptibility test by minimum inhibitory concentration >= NRG Meropenem susceptibility test by minimum inhibitory concentration < = NRG Aztreonam susceptibility test by minimum inhibitory concentration S NRG Amikacin susceptibility test by minimum inhibitory concentration S NRG Bacteria identification in isolate by anaerobe culture - 11/30/17 09:32 Bacteria identification in isolate by anaerobe culture NG NRG Gram stain microscopy - 11/30/17 09:32 GRAM STAIN RESULT NO BACTERIA OBSERVED NRG Bacteria identification in wound by culture - 11/30/17 09:32 Bacteria identification in wound by culture NG NRG Bacteria identification in isolate by anaerobe culture - 12/14/17 09:20 Bacteria identification in isolate by anaerobe culture NOANA NRG Gram stain microscopy - 12/14/17 09:20 GRAM STAIN RESULT NO WBC'S OR BACTERIA OBSERVED NRG Bacteria identification in wound by culture - 12/14/17 09:20 Bacteria identification in wound by culture SEE COMMEN NRG FREE TEXT EXTERNAL ID REPORTED 12/16/17. ISOLATE SENT TO NR QUANTITY OF GROWTH . NR FREE TEXT ENTRY 2 RML FOR SENSITIVITY ON 12/17/17. NR CALL POSITIVES (F1 HELP) CALLED TO [facility], 12/16/17 8:[address] [facility] Bacterial susceptibility panel - 12/14/17 09:20 Oxacillin susceptibility test by minimum inhibitory concentration > = NRG Gentamicin susceptibility test by minimum inhibitory concentration < = NRG Clindamycin susceptibility test by minimum inhibitory concentration R NRG Erythromycin susceptibility test by minimum inhibitory concentration >= NRG Trimethoprim/sulfamethoxazole susceptibility test by minimum inhibitoryconcentration S NRG Vancomycin susceptibility test by minimum inhibitory concentration < = NRG Levofloxacin susceptibility test by minimum inhibitory concentration >= NRG Rifampin susceptibility test by minimum inhibitory concentration <= NRG Tetracycline susceptibility test by minimum inhibitory concentration >= NRG Ciprofloxacin susceptibility test by minimum inhibitory concentration R NRG Linezolid susceptibility test by minimum inhibitory concentration 2 NRG Bacteria identification in isolate by anaerobe culture - 01/20/18 10:05 Bacteria identification in isolate by anaerobe culture NOANA NRG Gram stain microscopy - 01/20/18 10:05 Gram stain microscopy REPORTED 01-21-2018604. NRG Bacteria identification in wound by culture - 01/20/18 10:05 Bacteria identification in wound by culture [id number] NR FREE TEXT EXTERNAL RML SENSITIVITY REPORTED 01/24/18 11:05 NRG QUANTITY OF GROWTH Rare NR RML Sensitivity Panel - 01/20/18 10:05 Gentamicin susceptibility test by minimum inhibitory concentration 8 NRG Levofloxacin susceptibility test by minimum inhibitory concentration > NRG Tobramycin susceptibility test by minimum inhibitory concentration S NRG Piperacillin/tazobactam susceptibility test by minimum inhibitory concentration = NRG Ciprofloxacin susceptibility test by minimum inhibitory concentration > NRG Meropenem susceptibility test by minimum inhibitory concentration > NRG Aztreonam susceptibility test by minimum inhibitory concentration > NRG Cefepime susceptibility test by minimum inhibitory concentration > NRG Amikacin susceptibility test by minimum inhibitory concentration <= NRG Imipenem susceptibility test by minimum inhibitory concentration > NRG Ceftazidime susceptibility test by minimum inhibitory concentration 8 NRG Bacteria identification in isolate by anaerobe culture - 03/01/18 08:46 Bacteria identification in isolate by anaerobe culture NOANA NRG Gram stain microscopy - 03/01/18 08:46 Gram stain microscopy REPORTED 03-02-2018 0605. NRG Bacteria identification in wound by culture - 03/01/18 08:46 Bacteria identification in wound by culture SEE COMMEN NR FREE TEXT EXTERNAL ID'S REPORTED 03-03-18 1405. NRG QUANTITY OF GROWTH . NR FREE TEXT ENTRY 2 SUSCEPTIBILITY REPORTED 03/05/18 12:05 NR CALL POSITIVES (F1 HELP) [facility] CALLED TO REPORT MRSA AT 1109,03-04 NRG [facility] Sensitivity Panel - 03/01/18 08:46 Oxacillin susceptibility test by minimum inhibitory concentration R NRG Clindamycin susceptibility test by minimum inhibitory concentration > NRG Erythromycin susceptibility test by minimum inhibitory concentration > NRG Trimethoprim/sulfamethoxazole susceptibility test by minimum inhibitoryconcentration S NRG Vancomycin susceptibility test by minimum inhibitory concentration 1 NRG Levofloxacin susceptibility test by minimum inhibitory concentration > NRG Rifampin susceptibility test by minimum inhibitory concentration <= NRG Cefazolin susceptibility test by minimum inhibitory concentration > NRG Linezolid susceptibility test by minimum inhibitory concentration < = NRG Penicillin G susceptibility test by minimum inhibitory concentration > NRG Minocycline susc TANESHA <= NRG RML Sensitivity Panel - 03/01/18 08:46 Oxacillin susceptibility test by minimum inhibitory concentration < = NRG Clindamycin susceptibility test by minimum inhibitory concentration <= NRG Erythromycin susceptibility test by minimum inhibitory concentration > NRG Vancomycin susceptibility test by minimum inhibitory concentration < = NRG Levofloxacin susceptibility test by minimum inhibitory concentration <= NRG Rifampin susceptibility test by minimum inhibitory concentration <= NRG Cefazolin susceptibility test by minimum inhibitory concentration < = NRG Linezolid susceptibility test by minimum inhibitory concentration 2 NRG Moxifloxacin susceptibility test by minimum inhibitory concentration S NRG Minocycline susc TANESHA 2 NRG Encounters ACCT No. Visit Date/Time Discharge Status Pt. Type Provider Facility Loc./Unit Complaint [id number] 03/25/2016 14:59:33 03/25/2016 23:59:59 Jonah Schmitz [id number] 03/13/2016 19:25:09 03/13/2016 23:59:59 Jonah Schmitz [id number] 03/03/2016 11:49:22 03/03/2016 23:59:59 [facility] Outpatient Jonah Salazar [id number] 02/07/2016 10:19:38 02/07/2016 23:59:59 [facility] Jonah Salazar [id number] 01/23/2016 11:38:31 01/23/2016 23:59:59 [facility] Outpatient Jonah Salazar [id number] 12/21/2015 20:20:27 12/21/2015 23:59:59 [facility] Outpatient Jonah Salazar [id number] 11/30/2015 16:00:42 11/30/2015 23:59:59 [facility] Outpatient Regina Blas [id number] 07/25/2015 15:26:25 07/25/2015 23:59:59 [facility] Outpatient Jonah Salazar [id number] 07/01/2015 14:47:56 07/01/2015 23:59:59 [facility] Outpatient Ce Salazarn [id number] 05/03/2015 15:41:52 05/03/2015 23:59:59 [facility] Outpatient Regina Blas [id number] 04/12/2015 14:15:25 04/12/2015 23:59:59 [facility] Outpatient Ce Salazarn [id number] 04/09/2015 14:19:19 04/09/2015 23:59:59 [facility] Outpatient Regina Blas [id number] 04/04/2015 11:46:55 04/04/2015 23:59:59 [facility] Outpatient Ce Salazarn [id number] 03/20/2015 14:38:53 03/20/2015 23:59:59 [facility] Outpatient Ce Salazarn [id number] 02/20/2015 11:47:26 02/20/2015 23:59:59 [facility] Outpatient Ce Salazarn [id number] 12/24/2014 22:10:53 12/24/2014 23:59:59 [facility] Outpatient Jonah Salazar [id number] 11/22/2014 06:05:54 11/22/2014 06:05:55 DIS Outpatient [id number] 08/27/2014 09:17:45 Document Registration [id number] 08/16/2014 15:57:29 Document Registration [id number] 08/16/2014 15:57:28 Document Registration [id number] 08/16/2014 15:57:27 Document Registration [id number] 08/16/2014 15:57:26 Document Registration [id number] 03/22/2017 23:37:29 03/22/2017 23:59:59 [facility] Outpatient [id number] 03/26/2016 08:03:00 03/27/2016 09:42:00 DIS Outpatient NOREEN HINDS, [facility] [id number] 03/26/2016 08:44:00 03/26/2016 23:59:59 [facility] Outpatient JONAH SALAZAR [facility] R51 M25.519 H53.8 G91.9 [id number] 03/12/2016 07:47:00 03/12/2016 14:53:00 DIS Outpatient NOREEN HINDS, [facility] [id number] 02/10/2016 07:44:00 02/13/2016 14:24:00 [id number]10[facility]2016 08:00:00 01/14/2016 09:51:00 [id number] 05/03/2018 08:50:00 05/03/2018 23:59:59 [facility] Outpatient THELMA MENDOZA APRN [facility] [id number] 04/19/2018 10:52:00 04/19/2018 23:59:59 [facility] Outpatient THELMA MENDOZA APRN [facility] [id number] 04/05/2018 08:39:00 04/05/2018 23:59:59 [facility] Outpatient THELMA MENDOZA APRN [facility] [id number] 03/29/2018 08:52:00 03/29/2018 23:59:59 CLS Outpatient KELLY, THELMA R LEAFLET OR NEWSPAPER DELIVERER [facility] [id number] 03/22/2018 09:14:00 03/22/2018 23:59:59 CLS Outpatient KELLY, THELMA R LEAFLET OR NEWSPAPER DELIVERER [facility] [id number] 03/15/2018 09:03:00 03/15/2018 23:59:59 CLS Outpatient KELLY, THELMA R LEAFLET OR NEWSPAPER DELIVERER [facility] [id number] 03/08/2018 08:48:00 03/08/2018 23:59:59 CLS Outpatient KELLY, THELMA R LEAFLET OR NEWSPAPER DELIVERER [facility] [id number] 03/01/2018 08:03:00 03/01/2018 23:59:59 CLS Outpatient WILLIAM PARKS MD [facility] [id number] 02/15/2018 08:05:00 02/15/2018 23:59:59 CLS Outpatient KELLY, THELMA R LEAFLET OR NEWSPAPER DELIVERER [facility] [id number] 02/08/2018 08:59:00 02/08/2018 23:59:59 CLS Outpatient KELLY, THELMA R LEAFLET OR NEWSPAPER DELIVERER [facility] [id number] 02/03/2018 08:30:00 02/03/2018 23:59:59 CLS Outpatient KELLY, THELMA R LEAFLET OR NEWSPAPER DELIVERER [facility] [id number] 01/25/2018 08:45:00 01/25/2018 23:59:59 CLS Outpatient KELLY, THELMA R LEAFLET OR NEWSPAPER DELIVERER [facility] [id number] 01/20/2018 09:18:00 01/20/2018 23:59:59 CLS Outpatient WILLIAM PARKS MD [facility] [id number] 01/13/2018 09:02:00 01/13/2018 23:59:59 CLS Outpatient KELLY, THELMA R LEAFLET OR NEWSPAPER DELIVERER [facility] [id number] 01/04/2018 08:52:00 01/04/2018 23:59:59 CLS Outpatient KELLY, THELMA R LEAFLET OR NEWSPAPER DELIVERER [facility] [id number] 12/14/2017 08:51:00 12/14/2017 23:59:59 CLS Outpatient THELMA MENDOZA APRN [facility] [id number] 12/07/2017 08:57:00 12/07/2017 23:59:59 CLS Outpatient THELMA MENDOZA APRN [facility] [id number] 11/30/2017 08:44:00 11/30/2017 23:59:59 CLS Outpatient WILLIAM PARKS MD [facility] [id number] 11/25/2017 08:37:00 11/25/2017 23:59:59 CLS Outpatient WILLIAM PARKS MD [facility] [id number] 11/18/2017 08:52:00 11/18/2017 23:59:59 CLS Outpatient THELMA MENDOZA APRN [facility] [id number] 11/09/2017 10:15:00 11/09/2017 23:59:59 CLS Outpatient WILLIAM PARKS MD [facility] [id number] 11/02/2017 10:07:00 11/02/2017 23:59:59 CLS Outpatient THE[id number] 10/27/2017 08:52:00 10/27/2017 23:59:59 CLS Outpatient WILLIAM PARKS MD [facility] [id number] 10/21/2017 08:30:00 10/21/2017 23:59:59 CLS Outpatient THELMA MENDOZA APRN [facility] [id number] 04/01/2017 11:15:00 04/01/2017 23:59:59 CLS Preadmit MONTY STANLEY DO [facility] RAD HERNIA INCISIONAL, ABD PAIN [id number] 03/31/2017 13:54:00 03/31/2017 16:49:00 DIS Emergency RANDEE HINDS, SANIYA Lora [facility] ER DEC LOC [id number] 02/12/2017 11:12:00 02/12/2017 23:59:59 CLS Outpatient MIRIAM SIERRA MD [facility] RAD BACK PAIN,NECK PAIN [id number] 06/03/2016 11:30:00 07/01/2016 16:34:00 DIS Outpatient JOHNNY GENAO [facility] REHAB LYMPHEDEMA [id number] 12/28/2017 09:00:00 Document Registration [id number] 12/21/2017 09:10:00 Document Registration [id number] 05/06/2017 12:52:06 05/06/2017 12:52:06 DIS Outpatient [facility] [id number] 11/29/2017 15:20:00 11/29/2017 23:59:59 CLS Outpatient JAN WU [facility] [place]
--- NOTE | 2018-05-12 20:32 | Diagnostic Imaging Report ---
INDICATION: Line placement. COMPARISON: Imaging from same day. TECHNIQUE: 2 radiographs of the chest dated 05/12/2018. FINDINGS: Interval placement of an enteric catheter with the distal tip appearing to extend into the body of the stomach. Interval placement of a left IJ central venous catheter with the distal tip overlying the midline chest, possibly within the innominate vein. Cardiac silhouette is stable. No significant pulmonary vascular congestion. No focal pulmonary opacity. No pleural effusion. No pneumothorax. No acute osseous abnormality IMPRESSION: Interval placement of a left IJ central venous catheter with distal tip overlying the upper chest, possibly within the innominate vein. No pneumothorax. Interval placement of an enteric catheter with distal tip extending into the body of the stomach. The remainder of the examination appears similar. Dictated by: Dictated on workstation # [id number]
[2018-05-12] MEDS ORDERED: PIPERACILLIN/TAZO 4.5 GM/NS 100 ML IV ONE ×2 (21:30)
[2018-05-12] MEDS: FAMOTIDINE 20MG/2ML IV (PEPCID) IVP SCH (22:04)
[2018-05-12] MEDS: NS IV 1000 ML 1,000 ML IV SCH (22:04)
[2018-05-12] MEDS: fentaNYL INJECTION 100 MCG/2 ML AMP IV PRN (22:04)
[2018-05-13] VITALS (13 sets, daily range): BP systolic 111–160; BP diastolic 70–88
[2018-05-13] MEDS: ONDANSETRON 4 MG/2 ML (SDV) Z0FRAN IV PRN ×4 (00:01→16:40)
[2018-05-13] MEDS: fentaNYL INJECTION 100 MCG/2 ML AMP IV PRN ×4 (00:01→07:52)
[2018-05-13 03:54] LABS: BASOPHILS % (AUTO) 0 % (0-10); EOSINOPHILS # (AUTO) 0.1 10^3/uL (0.0-0.3); EOSINOPHILS % (AUTO) 1 % (0-10); HEMATOCRIT 39 % (40-54); HEMOGLOBIN 12.6 G/DL (13.3-17.7); LYMPHOCYTES % (AUTO) 10 % (12-44); MEAN CORPUSCULAR HEMOGLOBIN 28 PG (25-34); MEAN CORPUSCULAR HGB CONC 33 G/DL (32-36); MEAN CORPUSCULAR VOLUME 86 FL (80-99); MONOCYTES # (AUTO) 0.7 X 10^3 (0.0-1.0); MONOCYTES % (AUTO) 7 % (0-12); NEUTROPHILS # (AUTO) 8.7 X 10^3 (1.8-7.8); NEUTROPHILS % (AUTO) 83 % (42-75); PLATELET COUNT 282 10^3/uL (130-400); RED BLOOD COUNT 4.52 10^6/uL (4.35-5.85); RED CELL DISTRIBUTION WIDTH 14.7 % (10.0-14.5); WHITE BLOOD COUNT 10.5 10^3/uL (4.3-11.0)
[2018-05-13 04:27] LABS: ALANINE AMINOTRANSFERASE 86 U/L (0-55); ALBUMIN 3.8 GM/DL (3.2-4.5); ALKALINE PHOSPHATASE 115 U/L (40-136); BILIRUBIN,TOTAL 0.3 MG/DL (0.1-1.0); BUN/CREATININE RATIO 18; CALCIUM 9.1 MG/DL (8.5-10.1); CARBON DIOXIDE 20 MMOL/L (21-32); CHLORIDE 110 MMOL/L (98-107); CREATININE SERUM 0.73 MG/DL (0.60-1.30); GFR ESTIMATED > 60; GLUCOSE 120 MG/DL (70-105); MAGNESIUM 1.8 MG/DL (1.8-2.4); PHOSPHORUS 3.9 MG/DL (2.3-4.7); SODIUM 143 MMOL/L (135-145)
[2018-05-13] MEDS: NS IV 1000 ML 1,000 ML IV SCH ×3 (04:48→18:42)
[2018-05-13] MEDS: PIPERACILLIN/TAZO 4.5 GM/NS 100 ML IV SCH ×6 (04:48→18:43)
--- NOTE | 2018-05-13 06:59 | NUR ---
PHARMACY TO DOSE VANCOMYCIN: BASED ON ADJ BW & SCr 0.73 EST CrCl 182 LOADING DOSE: 2,500 MG MAIN. DOSE: 2,000 MG Q12HR VANCOMYCIN TROUGH ORDERED FOR 05/14/18 @ 18:00 IF TROUGH IS GREATER THAN 20 HOLD 05/14/18 19:00 DOSE
[2018-05-13] MEDS ORDERED: VANCOMYCIN 2,500 MG/NS 500 ML IVPB IV NR ×2 (07:00)
--- NOTE | 2018-05-13 07:37 | Diagnostic Imaging Report ---
INDICATION: Sepsis, UTI, small bowel obstruction. EXAMINATION: Abdomen 05/13/2018. COMPARISON: 05/12/2018. FINDINGS: There is a feeding tube coursing beneath the diaphragm. Left-sided jugular line stable. Lungs unchanged with a small infiltrate or atelectasis left lung base and a tiny left effusion. Remaining lungs clear. Heart unchanged. Pulmonary vasculature is stable. IMPRESSION: 1. Stable chest. Dictated by: Dictated on workstation # [id number]
--- NOTE | 2018-05-13 08:04 | History & Physicial ---
History of Present Illness History of Present Illness Reason for visit/HPI Patient resident of [facility]. Patient states he felt sick. Patient stated he was sweating up posttrauma not feeling good and belly aching and felt like going to vomit. Patient states getting a lot of water from his colostomy. Patient came to the emergency room. Patient had tachycardia. CAT scan shows partial small bowel obstruction. Patient has sepsis and abdominal pain. Patient has history of spina bifida and paraplegia below the knees. 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 Patient has a suprapubic. UTI. Elevated lactic acid. Elevated liver enzymes Date of Admission May 12, 2018 at 19:37 Time Seen by a Provider: 07:59 I consulted on this patient on 05/13/18 07:58 Attending Physician Barrie March DO Admitting Physician Anila Nuñez MD Consult Allergies and Home Medications Allergies Coded Allergies: latex (Verified Allergy, Unknown, 03/31/17) Patient Home Medication List Home Medication List Reviewed: No Past Zhzeybv-Diggbs-Zsegnk Hx Patient Social History Alcohol Use: Occasionally Uses Recreational Drug Use: No Smoking Status: Never a Smoker Physical Abuse Screen: No Sexual Abuse: No Recent Foreign Travel: No Contact w/other who traveled: No Recent Infectious Disease Expo: No Immunizations Up To Date Tetanus Booster (TDap): Unknown Pediatric: Yes Date of Influenza Vaccine: Feb 14, 2018 Seasonal Allergies Seasonal Allergies: No Surgeries Yes (ileostomy, colostomy ) Abdominal, Brain Shunt Respiratory Yes Cardiovascular Yes Hypertension Neurological Yes (spina bifida, MATERIAL ANALYST shunt) Genitourinary Yes Gastrointestinal Yes Abdominal Hernia Musculoskeletal Yes Endocrine History of Endocrine Disorders: Yes Endocrine Disorders: Diabetes, Non-Insulin dep HEENT History of HEENT Disorders: No Cancer No Psychosocial History of Psychiatric Problem: Yes Behavioral Health Disorders: Depression Family Medical History Significant Family History: Other Conditions/Hx (Sister has thyroid dz) Review of Systems Constitutional: weakness, other (Tachycardia) EENTM: no symptoms reported Respiratory: no symptoms reported Cardiovascular: no symptoms reported Gastrointestinal: abdominal pain, vomiting Genitourinary: no symptoms reported, other (Has a suprapubic) Physical Exam Vital Signs Vital Signs - First Documented 05/12/18 16:22 Temp 99.2 Pulse 137 Resp 20 B/P (MAP) 140/100 (113) Pulse Ox 96 O2 Delivery Room Air Capillary Refill : Less Than 3 Seconds Height, Weight, BMI Height: 5'2.00" Weight: 290lbs. oz. 131.650750bp; BMI Method:Stated General Appearance: No Apparent Distress, WD/WN, Other (Nasogastric tube in place) Eyes: Bilateral Eye Normal Inspection HEENT: Normal ENT Inspection, Other (NG tube) Neck: Full Range of Motion, Non Tender Respiratory: Lungs Clear, No Accessory Muscle Use, No Respiratory Distress Cardiovascular: Regular Rate, Rhythm, No Murmur Gastrointestinal: Non Tender, Soft Assessment/Plan Assessment and Plan Sepsis. UTI. Partial small bowel obstruction. Spina bifida. Colostomy. Suprapubic catheter. Elevated liver tests enzymes. Admission Diagnosis Admission Status: Inpatient Order (span 2 midnights) Reason for Inpatient Admission: Partial small bowel obstruction. Tachycardia. Abdominal pain. Spina bifida with paralysis below the knees. Sepsis Clinical Quality Measures DVT/VTE Risk/Contraindication: Risk Factor Score Per Nursin RFS Level Per Nursing on Admit: 3=High BARRIE MARCH DO May 13, 2018 08:04
[2018-05-13] MEDS: FAMOTIDINE 20MG/2ML IV (PEPCID) IVP SCH ×2 (08:59→20:55)
[2018-05-13] MEDS ORDERED: ALLO100T PO (09:35)
[2018-05-13] MEDS ORDERED: MULT-35 PO (09:35)
[2018-05-13] MEDS ORDERED: ACET-2267 PO (09:35)
[2018-05-13] MEDS ORDERED: CETI10TA20 PO (09:35)
[2018-05-13] MEDS ORDERED: FLUT16SP22 NS (09:35)
[2018-05-13] MEDS ORDERED: ONDN4T PO (09:35)
[2018-05-13] MEDS ORDERED: ZINC57OI6 TP (09:35)
[2018-05-13] MEDS ORDERED: DULO30CA3 PO (09:35)
[2018-05-13] MEDS ORDERED: ASPI-808 PO (09:35)
[2018-05-13] MEDS ORDERED: PANT40TA2 PO (09:35)
[2018-05-13] MEDS ORDERED: PROC25SU3 RC (09:35)
[2018-05-13] MEDS ORDERED: DICL100G18 TP ×2 (09:35)
[2018-05-13] MEDS ORDERED: LEVE500T99 PO (09:35)
[2018-05-13] MEDS ORDERED: TACR30OI5 TP (09:35)
[2018-05-13] MEDS ORDERED: OLOP2.5D OU (09:35)
[2018-05-13] MEDS ORDERED: METO-333 PO (09:35)
[2018-05-13] MEDS ORDERED: NYST15CR TP (09:35)
[2018-05-13] MEDS ORDERED: PHEN28OI6 RC (09:35)
[2018-05-13] MEDS ORDERED: L. A1TAB10 PO (09:35)
[2018-05-13] MEDS ORDERED: METO-310 PO (09:35)
[2018-05-13] MEDS ORDERED: LIDO76.5 TP (09:35)
[2018-05-13] MEDS ORDERED: HYDR-3812 PO (09:35)
--- NOTE | 2018-05-13 09:38 | NUR ---
UPDATED MED REC WITH ORDER SUMMARY REPORT FROM [facility] AND [facility]
--- NOTE | 2018-05-13 09:50 | Pulmonary Consultation ---
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 Pt was hospitalized at [place] Mar 2018 secondary to sepsis. While at [place] pt had a colon resection and currently has an ileostomy. PT also has a supra pubic catheter. He has been seeing wound care for wounds on the abdominal wall.Pt was admitted to ICU for close observation. I am consulted for ICU management. Allergies and Home Medications Allergies Coded Allergies: latex (Verified Allergy, Unknown, 03/31/17) Home Medications Acetaminophen 500 Mg Tablet, 500 MG PO HS, (Reported) Allopurinol 100 Mg Tablet, 100 MG PO DAILY, (Reported) Aspirin 325 Mg Tablet, 325 MG PO DAILY, (Reported) Cetirizine HCl 10 Mg Tablet, 10 MG PO DAILY PRN for ALLERGIES, (Reported) Diclofenac Sodium 100 Gm Gel..gram., 4 GM TP HS, (Reported) APPLY TO LOWER BACK AND BOTH SHOULDERS Diclofenac Sodium 100 Gm Gel..gram., 4 GM TP Q4H PRN for BACK/SHOULDER PAIN, ( Reported) Duloxetine HCl 30 Mg Capsule.dr, 90 MG PO DAILY, (Reported) TAKES 3 (30MG) CAPSULES Fluticasone Propionate 16 Gm [place].susp, 1 SPRAY NS HS, (Reported) Hydrocodone/Acetaminophen 1 Each Tablet, 1-2 TAB PO Q6H PRN for PAIN-MODERATE, ( Reported) L. Acidophilus/L.bulgaricus 1 Each Tablet, 1 TAB PO BID, (Reported) Levetiracetam 500 Mg Tablet, 1,500 MG PO BID, (Reported) TAKES 3 (500MG) TABLETS Lidocaine HCl 76.5 Gm Cream..g., TP TID, (Reported) APPLY TO BACK FROM SHOULDERS TO TOP OF BUTTOCKS Metoclopramide HCl 10 Mg Tablet, 10 MG PO QID, (Reported) Metoprolol Tartrate 25 Mg Tablet, 12.5 MG PO BID, (Reported) TAKES 1/2 (25MG) TABLET NOTIFY PCP IF <80/50 OR >180/110 OR PULSE <50 OR > 110 Multivitamin 1 Each Tablet, 1 TAB PO DAILY, (Reported) Nystatin 15 Gm Cream..g., TP BID, (Reported) APPLY TO BUTTOCKS/GROIN AREA Olopatadine HCl 2.5 Ml Drops, 1 DROP OU DAILY PRN for DRY EYES, (Reported) Ondansetron HCl 4 Mg Tab, 4 MG PO Q8H PRN for NAUSEA/VOMITING-1ST LINE, ( Reported) Pantoprazole Sodium 40 Mg Tablet.dr, 40 MG PO DAILY, (Reported) Phenyleph/Mineral Oil/Petrolat 28 Gm Oint.appl, RC Q6H PRN for HEMORRHOIDS, ( Reported) Prochlorperazine 25 Mg Supp.rect, 25 MG RC Q12H PRN for NAUSEA/VOMITING-4TH LINE , (Reported) Tacrolimus 30 Gm Oint...g., TP BID, (Reported) APPLY TO MIDLINE ABDOMINAL WOUND Zinc Oxide 57 Gm Oint...g., TP BID, (Reported) APPLY TO BUTTOCKS AND JAJA WOUND Past Fpudebn-Kobbcv-Esqdqz Hx Past Med/Social Hx: Reviewed and Corrections made Patient Social History Alcohol Use: Occasionally Uses Recreational Drug Use: No Smoking Status: Never a Smoker Recent Foreign Travel: No Contact w/Someone Who Travel: No Recent Infectious Disease Expo: No Immunizations Up To Date Tetanus Booster (TDap): Unknown PED Vaccines UTD: Yes Date of Influenza Vaccine: Feb 14, 2018 Seasonal Allergies Seasonal Allergies: No Past Medical History Surgeries: Yes (ileostomy, colostomy ) Abdominal, Brain Shunt Respiratory: Yes Asthma Cardiac: Yes Hypertension Neurological: Yes (spina bifida, MEMORIAL MARKER DESIGNER shunt) Genitourinary: Yes Gastrointestinal: Yes Abdominal Hernia Musculoskeletal: Yes Endocrine: Yes Diabetes, Non-Insulin dep HEENT: No Cancer: No Psychosocial: Yes Depression Family Medical History Reviewed and Corrections made Other Conditions/Hx (Sister has thyroid dz) Review of Systems Time Seen by Provider: 10:16 Constitutional: Weakness, Malaise; No: Fever, Chills, Sweats, Other Eyes: No: Pain, Vision change, Conjunctivae inflammation, Eyelid inflammation, Other, Redness Respiratory: Shortness of breath, SOB with excertion; No: Cough, Dry, Wheezing , Hemoptysis, Pleuritic Pain, Sputum, Wheezing, Other Cardiovascular: Paroxysmal Noc. Dyspnea; No: Chest Pain, Palpitations, Orthopnea, Edema, Lt Headedness, Other Gastrointestinal: Abdominal Pain, Constipation; No: Nausea, Vomiting Neurological: Weakness Sepsis Event Evaluation Height, Weight, BMI Height: 5'2.00" Weight: 290lbs. oz. 131.755485vk; BMI Method:Stated Exam Exam Vital Signs Date Time Temp Pulse Resp B/P (MAP) Pulse Ox O2 Delivery O2 Flow Rate FiO2 05/13/18 09:00 108 12 115/78 (90) 94 Room Air 05/13/18 08:00 118 12 114/70 (85) 90 Room Air 05/13/18 08:00 97.7 05/13/18 08:00 95 Room Air 05/13/18 07:01 108 05/13/18 07:01 106 14 119/78 (92) 90 Room Air 05/13/18 06:00 108 16 123/80 (94) 91 Room Air 05/13/18 05:00 109 18 119/74 (89) 90 Room Air 05/13/18 04:00 91 Room Air 05/13/18 04:00 112 10 119/79 (92) 95 Room Air 05/13/18 03:00 111 17 119/81 (94) 95 Room Air 05/13/18 02:00 115 13 116/82 (93) 94 Room Air 05/13/18 01:00 102 05/13/18 01:00 102 12 111/75 (87) 94 Room Air 05/13/18 00:00 97.8 05/13/18 00:00 97.8 116 11 117/78 (91) 96 Room Air 05/12/18 23:00 107 13 106/73 (84) 95 Room Air 05/12/18 22:00 122 15 113/71 (85) 95 Room Air 05/12/18 22:00 Room Air 05/12/18 21:45 115 9 112/70 (84) 96 Room Air 05/12/18 21:30 113 11 114/76 (89) 94 Room Air 05/12/18 21:15 121 12 113/75 (88) 96 Room Air 05/12/18 21:00 122 10 116/75 (89) 93 Room Air 05/12/18 20:58 123 05/12/18 20:56 97.3 123 14 119/85 (96) 93 Room Air 05/12/18 20:44 122 20 147/97 (114) 97 Room Air 12/27/18 16:22 99.2 137 20 140/100 (113) 96 Room Air I & O 05/13/18 07:00 Intake Total 4300 ml Output Total 1450 ml Balance 2850 ml Height & Weight Height: 5'2.00" Weight: 290lbs. oz. 131.835084pu; BMI Method:Stated General Appearance: No Apparent Distress, WD/WN, Other (Nasogastric tube in place) HEENT: Normal ENT Inspection, Other (NG tube) Neck: Full Range of Motion, Non Tender Respiratory: Lungs Clear, No Accessory Muscle Use, No Respiratory Distress Cardiovascular: Regular Rate, Rhythm, No Murmur Capillary Refill: Less Than 3 Seconds Gastrointestinal: abnormal bowel sounds, distended, guarding (voluntary), tenderness (diffusely), hernia (large abdominal ventral/incisional), other (pt has large scar in midline from previous surgery) Extremity: Normal Capillary Refill, Normal Inspection, No Pedal Edema Neurologic/Psychiatric: Alert, Oriented x3, Normal Mood/Affect, 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 -Surgery following -NG to suction -NPO -Decrease pain meds nocturnal Hypoxia secondary to RYAN -Unable to use CPAP right now secondary to NG tube -PT is currently on oxy mask secondary to hypoxia once he falls asleep -Im am going to decrease pain meds to help with this Spina Bifida with paraplegia below knees bilaterally Will transfer to 4th floor with tele and continue to monitor close. NESSA DE LA VEGA DO May 13, 2018 09:50
[2018-05-13] MEDS ORDERED: meTOprolol 5 MG/5 ML (LOPRESSOR) VIAL IV PRN (10:30)
[2018-05-13] MEDS: morphine INJ 4 MG/ML 1 ML (VIAL/SYRINGE) IVP PRN ×4 (10:41→23:46)
--- NOTE | 2018-05-13 11:10 | NUR ---
PT TRANSFERRED TO ROOM 428 VIA BED ACCOMPANIED BY THIS RN. PT PERSONAL BELONGINGS TAKEN TO NEW ROOM WITH PT. THIS RN INTRODUCED PT TO SURROUNDINGS. DENIES C/O OR NEEDS. WILL CONTINUE TO MONITOR.
[2018-05-13] MEDS: SODIUM CHLORIDE IV SCH ×4 (11:23→22:37)
[2018-05-13] MEDS: LEVETIRACETAM IV SCH ×4 (11:23→22:37)
--- NOTE | 2018-05-13 11:33 | Progress Note ---
Subjective Time Seen by a Provider: 10:45 Subjective/Events-last exam Patient was seen and examined he appears much more comfortable today. He states he still has some minimal abdominal pain but much better than it was before. He is mildly nauseous but has not had any vomiting. Nurse states they've continued to get a large amount of fluid out of his NG tube. She also states they have been emptied his ostomy bag at least 3 times. Review of Systems General: No Chills, No Night Sweats HEENT: No Head Aches Pulmonary: No Dyspnea, No Cough Cardiovascular: No: Chest Pain, Palpitations Gastrointestinal: Nausea, Abdominal Pain Focused Exam Lactate Level 05/12/18 16:32: Lactic Acid Level 2.44*H 05/12/18 20:30: Lactic Acid Level 1.84 Objective Exam Vital Signs Date Time Temp Pulse Resp B/P (MAP) Pulse Ox O2 Delivery O2 Flow Rate FiO2 05/13/18 09:25 OxyMask 3.00 05/13/18 09:00 108 12 115/78 (90) 94 Room Air 05/13/18 08:00 118 12 114/70 (85) 90 Room Air 05/13/18 08:00 97.7 05/13/18 08:00 95 Room Air 05/13/18 07:01 108 05/13/18 07:01 106 14 119/78 (92) 90 Room Air 05/13/18 06:00 108 16 123/80 (94) 91 Room Air 05/13/18 05:00 109 18 119/74 (89) 90 Room Air 05/13/18 04:00 91 Room Air 05/13/18 04:00 112 10 119/79 (92) 95 Room Air 05/13/18 03:00 111 17 119/81 (94) 95 Room Air 05/13/18 02:00 115 13 116/82 (93) 94 Room Air 05/13/18 01:00 102 05/13/18 01:00 102 12 111/75 (87) 94 Room Air 05/13/18 00:00 97.8 05/13/18 00:00 97.8 116 11 117/78 (91) 96 Room Air 05/12/18 23:00 107 13 106/73 (84) 95 Room Air 05/12/18 22:00 122 15 113/71 (85) 95 Room Air 05/12/18 22:00 Room Air 05/12/18 21:45 115 9 112/70 (84) 96 Room Air 05/12/18 21:30 113 11 114/76 (89) 94 Room Air 05/12/18 21:15 121 12 113/75 (88) 96 Room Air 05/12/18 21:00 122 10 116/75 (89) 93 Room Air 05/12/18 20:58 123 05/12/18 20:56 97.3 123 14 119/85 (96) 93 Room Air 05/12/18 20:44 122 20 147/97 (114) 97 Room Air 05/12/18 16:22 99.2 137 20 140/100 (113) 96 Room Air I & O 05/13/18 07:00 Intake Total 4300 ml Output Total 1450 ml Balance 2850 ml Capillary Refill : Less Than 3 Seconds General Appearance: No Apparent Distress, Obese HEENT: Normal ENT Inspection, Other (NG tube) Respiratory: Lungs Clear, No Accessory Muscle Use, No Respiratory Distress Cardiovascular: No Murmur, Tachycardia Gastrointestinal: soft, no organomegaly; No distended; tenderness (diffusely but very mild and much improved compared to yesterday), hernia (large abdominal ventral/incisional), other (pt has large scar in midline from previous surgery) Neurologic/Psychiatric: Alert, Oriented x3, Normal Mood/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0H, Lymphocytes # (Auto) 1.5, Monocytes # (Auto) 0.9, Eosinophils # (Auto) 0.3, Basophils # (Auto) 0.0, Neutrophils % (Manual) 67, Lymphocytes % (Manual) 8, Monocytes % (Manual) 3, Eosinophils % (Manual) 1, Basophils % (Manual) 0, Band Neutrophils 21, Blood Morphology Comment NORMAL, Prothrombin Time 12.2, INR Comment 0.9, Activated Partial Thromboplast Time 31, Sodium Level 138, Potassium Level 4.7, Chloride Level 102, Carbon Dioxide Level 23, Anion Gap 13, Blood Urea Nitrogen 15, Creatinine 0.94, Estimat Glomerular Filtration Rate > 60, BUN/Creatinine Ratio 16, Glucose Level 109H, Lactic Acid Level 2.44*H, Calcium Level 11.0H, Corrected Calcium , Total Bilirubin 0.3, Aspartate Amino Transf (AST/SGOT) 70H, Alanine Aminotransferase (ALT/SGPT) 101H , Alkaline Phosphatase 139H, Total Protein 9.1H, Albumin 4.8H 05/12/18 17:52: Urine Color AMBERH, Urine Clarity VERY CLOUDYH, Urine pH 8, Urine Specific [place] 1.010L, Urine Protein 4+, Urine Glucose (UA) NEGATIVE, Urine Ketones NEGATIVE, Urine Nitrite POSITIVEH, Urine Bilirubin 1+H, Urine Urobilinogen NORMAL, Urine Leukocyte Esterase 3+H, Urine RBC (Auto) 5+H, Urine RBC >100H, Urine WBC 25-50H, Urine Crystals NONE, Urine Bacteria LARGEH, Urine Casts NONE, Urine Mucus NEGATIVE, Urine Culture Indicated NO 05/12/18 20:30: Lactic Acid Level 1.84 05/13/18 03:20: White Blood Count 10.5, Red Blood Count 4.52, Hemoglobin 12.6L, Hematocrit 39L, Mean Corpuscular Volume 86, Mean Corpuscular Hemoglobin 28, Mean Corpuscular Hemoglobin Concent 33, Red Cell Distribution Width 14.7H, Platelet Count 282, Mean Platelet Volume 9.0, Neutrophils (%) (Auto) 83H, Lymphocytes (%) (Auto) 10L , Monocytes (%) (Auto) 7, Eosinophils (%) (Auto) 1, Basophils (%) (Auto) 0, Neutrophils # (Auto) 8.7H, Lymphocytes # (Auto) 1.0, Monocytes # (Auto) 0.7, Eosinophils # (Auto) 0.1, Basophils # (Auto) 0.0, Sodium Level 143, Potassium Level 4.0, Chloride Level 110H, Carbon Dioxide Level 20L, Anion Gap 13, Blood Urea Nitrogen 13, Creatinine 0.73, Estimat Glomerular Filtration Rate > 60, BUN/ Creatinine Ratio 18, Glucose Level 120H, Calcium Level 9.1, Corrected Calcium 9.3, Total Bilirubin 0.3, Aspartate Amino Transf (AST/SGOT) 43H, Alanine Aminotransferase (ALT/SGPT) 86H, Alkaline Phosphatase 115, Total Protein 7.0, Albumin 3.8, Phosphorus Level 3.9, Magnesium Level 1.8 Microbiology 05/12/18 Influenza Types A,B Antigen (TANESHA) - Final, Complete Assessment/Plan Assessment/Plan Assessment/Plan PSBO -seems to be improved with NGT Sepsis probably secondary to UTI Incarcerated hernia Spina Bifida with paraplegia below the knees Venous Insufficiency Pt should be continued on ABX and NGT suction as well as NPO, IV fluids, pain control and anti-emetics. It appears as of right now the decompression and bowel rest are working very well. I would recommend continuing the NG tube until the output is very minimal and then we can start him on some liquids and monitor his labs. His labs have improved from yesterday and he does not appear to need a small bowel follow-through at this time. I am still concerned about the section of small intestine that was decompressed on CT and this will need to be watched. Clinical Quality Measures DVT/VTE Risk/Contraindication: Risk Factor Score Per Nursin RFS Level Per Nursing on Admit: 3=High Contraindications-Pharm: Other *list below* BEN MORRIS DO May 13, 2018 11:32
--- NOTE | 2018-05-13 13:06 | Physician Query Clarification ---
PQ-Link Infection to Dev/Proc Admission/Discharge Admission Date: May 12, 2018 at 19:37 Discharge Date: The medical record reflects the following clinical scenario: History/Risk Factors: Sepsis UTI Clinical Findings: Suprapubic catheter with heavy sediment in catheter line per Dr. Mckenzie. Treatment: Rocephin and Vancomycin. Question: Can you specify if the Sepsis/UTI are due to/associated with suprapubic catheter? Please document a response below. PHYSICIAN RESPONSE Specify if infection: Yes,due to/associated with procdure In responding to this query, please exercise your independent professional judgment. The purpose of this communication is to more accurately reflect the complexity of your patients condition. The fact that a question is asked does not imply that any particular answer is desired or expected. Thank you for your timely response to this clarification. Requestors name: María Moore [facility] Phone # ext [phone] or [phone] THIS PHYSICIAN QUERY FORM IS A PERMANENT PART OF THE MEDICAL RECORD MARÍA MOORE May 13, 2018 13:06 KAREEM MARCH DO May 16, 2018 07:18
--- NOTE | 2018-05-13 16:32 | NUR ---
Pastoral Care Visit.
[2018-05-13] MEDS: VANCOMYCIN 2000 MG/NS 500 ML IVPB IV SCH ×2 (18:43)
[2018-05-14 00:12] VITALS: BP 134/77
[2018-05-14] MEDS: NS IV 1000 ML 1,000 ML IV SCH ×4 (01:21→20:15)
[2018-05-14] MEDS: PIPERACILLIN/TAZO 4.5 GM/NS 100 ML IV SCH ×6 (02:13→18:48)
[2018-05-14 04:26] VITALS: BP 139/82
[2018-05-14] MEDS: VANCOMYCIN 2000 MG/NS 500 ML IVPB IV SCH ×6 (06:04→19:34)
[2018-05-14] MEDS: morphine INJ 4 MG/ML 1 ML (VIAL/SYRINGE) IVP PRN ×2 (06:10→10:14)
[2018-05-14 06:15] LABS: BASOPHILS % (AUTO) 0 % (0-10); EOSINOPHILS # (AUTO) 0.2 10^3/uL (0.0-0.3); EOSINOPHILS % (AUTO) 5 % (0-10); HEMATOCRIT 33 % (40-54); HEMOGLOBIN 10.5 G/DL (13.3-17.7); LYMPHOCYTES % (AUTO) 19 % (12-44); MEAN CORPUSCULAR HEMOGLOBIN 28 PG (25-34); MEAN CORPUSCULAR HGB CONC 32 G/DL (32-36); MEAN CORPUSCULAR VOLUME 87 FL (80-99); MEAN PLATELET VOLUME 8.4 FL (7.4-10.4); MONOCYTES # (AUTO) 0.4 X 10^3 (0.0-1.0); MONOCYTES % (AUTO) 8 % (0-12); NEUTROPHILS # (AUTO) 3.7 X 10^3 (1.8-7.8); NEUTROPHILS % (AUTO) 68 % (42-75); PLATELET COUNT 205 10^3/uL (130-400); RED BLOOD COUNT 3.76 10^6/uL (4.35-5.85); RED CELL DISTRIBUTION WIDTH 14.8 % (10.0-14.5); WHITE BLOOD COUNT 5.4 10^3/uL (4.3-11.0)
[2018-05-14 06:43] LABS: BUN/CREATININE RATIO 12; CARBON DIOXIDE 21 MMOL/L (21-32); CHLORIDE 116 MMOL/L (98-107); CREATININE SERUM 0.75 MG/DL (0.60-1.30); GFR ESTIMATED > 60; GLUCOSE 86 MG/DL (70-105); POTASSIUM 3.7 MMOL/L (3.6-5.0); SODIUM 145 MMOL/L (135-145)
[2018-05-14 08:00] VITALS: BP 134/81
--- NOTE | 2018-05-14 08:32 | Pulmonary Progress Note ---
Subjective Time Seen by a Provider: 08:32 Subjective/Events-last exam PT appears to be doing better. Sepsis Event Evaluation Height, Weight, BMI Height: 5'2.00" Weight: 286lbs. 6.4oz. 129.610005sy; BMI Method:Stated Focused Exam Lactate Level 05/12/18 16:32: Lactic Acid Level 2.44*H 05/12/18 20:30: Lactic Acid Level 1.84 Exam Exam Vital Signs Date Time Temp Pulse Resp B/P (MAP) Pulse Ox O2 Delivery O2 Flow Rate FiO2 05/14/18 04:26 98.8 113 20 139/82 (101) 99 Room Air 05/14/18 01:00 110 05/14/18 00:12 99.0 114 20 134/77 (96) 94 Room Air 05/13/18 20:00 99.4 112 18 122/74 (90) 94 Room Air 05/13/18 19:35 Room Air 05/13/18 19:00 111 05/13/18 15:35 98.7 117 18 160/88 (112) 97 Room Air 05/13/18 13:06 118 05/13/18 12:00 95 Room Air 05/13/18 11:46 98.8 112 16 128/79 (95) 98 Room Air 05/13/18 11:13 115 05/13/18 09:25 OxyMask 3.00 05/13/18 09:00 108 12 115/78 (90) 94 Room Air I & O 05/14/18 06:59 Intake Total 4195 ml Output Total 3355 ml Balance 840 ml Height & Weight Height: 5'2.00" Weight: 286lbs. 6.4oz. 129.370485ea; BMI Method:Stated General Appearance: No Apparent Distress, Obese HEENT: Normal ENT Inspection, Other (NG tube) Respiratory: Lungs Clear, No Accessory Muscle Use, No Respiratory Distress Cardiovascular: No Murmur, Tachycardia Capillary Refill: Less Than 3 Seconds Gastrointestinal: soft, no organomegaly; No distended; tenderness (diffusely but very mild and much improved compared to yesterday), hernia (large abdominal ventral/incisional), other (pt has large scar in midline from previous surgery) Neurologic/Psychiatric: Alert, Oriented x3, Normal Mood/Affect, insurance follow up representative II-XII Norm as Tested, Motor Weakness (distal lower extremities, chronic and unchanged) Skin: Normal Color, Warm/Dry Results Lab Laboratory Tests 05/12/18 16:32 05/13/18 03:20 05/14/18 06:05 Assessment/Plan Assessment/Plan Sepsis with UTI -Anthony cultures pending -IVF -Continue Abx Abdominal pain- mild Elevated liver enzymes -Monitor Sinus tach -MOnitor PSBO -Currently medical management. -Surgery following -NPO nocturnal Hypoxia secondary to RYAN -Unable to use CPAP right now secondary to NG tube -PT is currently on oxy mask secondary to hypoxia once he falls asleep -Im am going to decrease pain meds to help with this Spina Bifida with paraplegia below knees bilaterally NESSA DE LA VEGA DO May 14, 2018 08:32
[2018-05-14] MEDS: FAMOTIDINE 20MG/2ML IV (PEPCID) IVP SCH ×2 (08:59→20:54)
--- NOTE | 2018-05-14 09:24 | Progress Note (SOAP) ---
Subjective Date Seen by a Provider: May 14, 2018 Time Seen by a Provider: 08:48 Subjective/Events-last exam no nausea or vomiting. Output from the stoma. Very minimal output from the nasogastric tube. Review of Systems General: No Chills, No Night Sweats, No Fatigue, No Malaise HEENT: No Head Aches, No Eye Pain, No Ear Pain, No Dysphasia, No Sinus Congestion, No Post Nasal Drip, No Sore Throat Cardiovascular: No: Chest Pain, Palpitations, Orthopnea, Paroxysmal Noc. Dyspnea, Edema, Lt Headedness Gastrointestinal: No: Nausea, Vomiting, Abdominal Pain, Diarrhea, Constipation , Melena, Hematochezia Genitourinary: No Dysuria, No Frequency, No Incontinence, No Hematuria, No Retention Focused Exam Lactate Level 05/12/18 16:32: Lactic Acid Level 2.44*H 05/12/18 20:30: Lactic Acid Level 1.84 Objective Exam Vital Signs Date Time Temp Pulse Resp B/P (MAP) Pulse Ox O2 Delivery O2 Flow Rate FiO2 05/14/18 08:00 97.8 110 18 134/81 (98) 97 OxyMask 05/14/18 07:07 102 05/14/18 04:26 98.8 113 20 139/82 (101) 99 Room Air 05/14/18 01:00 110 05/14/18 00:12 99.0 114 20 134/77 (96) 94 Room Air 05/13/18 20:00 99.4 112 18 122/74 (90) 94 Room Air 05/13/18 19:35 Room Air 05/13/18 19:00 111 05/13/18 15:35 98.7 117 18 160/88 (112) 97 Room Air 05/13/18 13:06 118 05/13/18 12:00 95 Room Air 05/13/18 11:46 98.8 112 16 128/79 (95) 98 Room Air 05/13/18 11:13 115 05/13/18 09:25 OxyMask 3.00 I & O 05/14/18 07:00 Intake Total 4195 ml Output Total 3355 ml Balance 840 ml Capillary Refill : Less Than 3 Seconds General Appearance: No Apparent Distress Respiratory: Lungs Clear Cardiovascular: Regular Rate, Rhythm Gastrointestinal: non tender, soft Neurologic/Psychiatric: Alert, Oriented x3 Skin: Warm/Dry Other comments fecal material in the stoma bag. Midline scar over the abdomen with no incisional hernia. Results Lab Laboratory Tests 05/14/18 06:05: White Blood Count 5.4, Red Blood Count 3.76L, Hemoglobin 10.5L, Hematocrit 33L, Mean Corpuscular Volume 87, Mean Corpuscular Hemoglobin 28, Mean Corpuscular Hemoglobin Concent 32, Red Cell Distribution Width 14.8H, Platelet Count 205, Mean Platelet Volume 8.4, Neutrophils (%) (Auto) 68, Lymphocytes (%) (Auto) 19, Monocytes (%) (Auto) 8, Eosinophils (%) (Auto) 5, Basophils (%) (Auto) 0, Neutrophils # (Auto) 3.7, Lymphocytes # (Auto) 1.0, Monocytes # (Auto) 0.4, Eosinophils # (Auto) 0.2, Basophils # (Auto) 0.0, Sodium Level 145, Potassium Level 3.7, Chloride Level 116H, Carbon Dioxide Level 21, Anion Gap 8, Blood Urea Nitrogen 9, Creatinine 0.75, Estimat Glomerular Filtration Rate > 60, BUN/ Creatinine Ratio 12, Glucose Level 86, Calcium Level 9.0 Microbiology 05/12/18 Blood Culture - Preliminary, Resulted Staph, Coag Neg ([employer] [place]) See Comments 05/12/18 Influenza Types A,B Antigen (TANESHA) - Final, Complete 05/12/18 Urine Culture - Preliminary, Resulted Gram Negative Bacillus 1 05/12/18 Gram Stain - Final, Resulted 05/12/18 Wound Culture - Preliminary, Resulted Staphylococcus aureus Assessment/Plan Assessment/Plan Assess & Plan/Chief Complaint gentleman with ileus, improved. Nasogastric tube could be removed and clear liquid diet initiated Final Diagnosis ileus Clinical Quality Measures DVT/VTE Risk/Contraindication: Risk Factor Score Per Nursin RFS Level Per Nursing on Admit: 3=High Contraindications-Pharm: Other *list below* MING GUERRA MD May 14, 2018 09:24
--- NOTE | 2018-05-14 09:30 | NUR ---
NG TUBE REMOVED.
--- NOTE | 2018-05-14 10:15 | NUR ---
MS 2MG IV FOR GENERAL DISCOMFORT.
[2018-05-14] MEDS: LEVETIRACETAM IV SCH ×4 (11:02→22:48)
[2018-05-14] MEDS: SODIUM CHLORIDE IV SCH ×4 (11:02→22:48)
[2018-05-14 12:00] VITALS: BP 124/76
--- NOTE | 2018-05-14 12:05 | NUR ---
[employer] [facility]'Linda.
--- NOTE | 2018-05-14 12:15 | Progress Note-Hospitalist ---
Subjective HPI/CC On Admission Date Seen by Provider: May 14, 2018 Time Seen by Provider: 11:15 Subjective/Events-last exam Patient doing well Advancing diet to clear liquids Dr. Muhammad evaluated the patient Check meds and labs Overall doing much better UCx reviewed Review of Systems General: Fatigue Focused Exam Lactate Level 05/12/18 16:32: Lactic Acid Level 2.44*H 05/12/18 20:30: Lactic Acid Level 1.84 Objective Exam Vital Signs Vital Signs Date Time Temp Pulse Resp B/P (MAP) Pulse Ox O2 Delivery O2 Flow Rate FiO2 05/14/18 08:00 97.8 110 18 134/81 (98) 97 OxyMask 05/13/18 09:25 3.00 Capillary Refill : Less Than 3 Seconds General Appearance: No Apparent Distress, WD/WN, Chronically ill, Obese Respiratory: Chest Non Tender, Lungs Clear, Normal Breath Sounds, No Accessory Muscle Use, No Respiratory Distress Cardiovascular: Regular Rate, Rhythm, No Edema, No Gallop, No JVD, No Murmur, Normal Peripheral Pulses Neurologic/Psychiatric: Alert, Oriented x3, No Motor/Sensory Deficits, Normal Mood/Affect, Motor Weakness (lower legs) Results/Procedures Lab Laboratory Tests 05/14/18 06:05 Patient resulted labs reviewed. Assessment/Plan Assessment and Plan Assess & Plan/Chief Complaint Assessment: Sepsis with UTI Abdominal pain due to SBO s/p NGT now DC Elevated liver enzymes Sinus tach resolved Nocturnal Hypoxia secondary to RYAN Spina Bifida with paraplegia below knees bilaterally Plan: Abx maintenance CLD and advance Home meds Diagnosis/Problems Diagnosis/Problems (1) Sepsis Status: Acute Qualifiers: Sepsis type: sepsis due to unspecified organism Qualified Codes: A41.9 - Sepsis, unspecified organism (2) Small bowel obstruction Status: Acute (3) UTI (urinary tract infection) Status: Acute Qualifiers: Urinary tract infection type: site unspecified Hematuria presence: without hematuria Qualified Codes: N39.0 - Urinary tract infection, site not specified (4) Spina bifida Status: Chronic Qualifiers: Spinal region: lumbosacral Presence of hydrocephalus: unspecified hydrocephalus presence Qualified Codes: Q05.7 - Lumbar spina bifida without hydrocephalus (5) Paralysis Status: Chronic (6) Suprapubic catheter Status: Chronic (7) Seizure disorder Status: Chronic (8) Chronic pain Status: Chronic Qualifiers: Chronic pain type: chronic pain syndrome Qualified Codes: G89.4 - Chronic pain syndrome Clinical Quality Measures DVT/VTE Risk/Contraindication: Risk Factor Score Per Nursin RFS Level Per Nursing on Admit: 3=High Contraindications-Pharm: Other *list below* TESFAYE SCHAFFER DO May 14, 2018 12:15
[2018-05-14] MEDS ORDERED: PROCHLORPERAZINE 25 MG (COMPAZINE) SUPP RC PRN (13:30)
[2018-05-14] MEDS ORDERED: DICLOFENAC 1% GEL 100 GM (VOLTAREN) TUBE TP PRN (13:30)
[2018-05-14] MEDS ORDERED: PREPARATION H OINTMENT 57 GR TUBE RC PRN (13:30)
[2018-05-14] MEDS ORDERED: ONDANSETRON 4 MG (ZOFRAN) ORAL DISSOLVE TAB PO PRN (14:30)
[2018-05-14] MEDS ORDERED: ARTIFICAL TEARS 0.4 ML UNIT DOSE (REFRESH PLUS) OU PRN (14:30)
[2018-05-14] MEDS: HYDROcodone/APAP 5 MG/325 MG (LORTAB) TAB PO PRN ×2 (15:09→20:57)
--- NOTE | 2018-05-14 15:15 | NUR ---
LORTAB PO FOR GENERAL DISCOMFORT.
[2018-05-14 16:50] VITALS: BP 123/82
[2018-05-14] MEDS: METOCLOPRAMIDE 10 MG (REGLAN) TAB PO SCH ×2 (17:38→20:57)
[2018-05-14] MEDS ORDERED: TROUGH ORDER-PHARMACY XX NR (18:00)
[2018-05-14 20:45] VITALS: BP 128/75
[2018-05-14] MEDS: FLUTICASONE NASAL SPRAY (FLONASE) 16 GM BTL NS SCH (20:54)
[2018-05-14] MEDS: LACTOBACILLUS ACIDOPHILUS (PROBIOTIC) CAPSULE PO SCH (20:56)
[2018-05-14] MEDS: DICLOFENAC 1% GEL 100 GM (VOLTAREN) TUBE TP SCH (20:57)
[2018-05-14] MEDS: ACETAMINOPHEN 500 MG TAB (TYLENOL) PO SCH (20:57)
[2018-05-14] MEDS: meTOprolol TARTRATE 25 MG (LOPRESSOR) TABLET PO SCH (20:57)
[2018-05-14] MEDS: NYSTATIN CREAM (MYCOSTATIN) 30 GM TUBE TP SCH (20:58)
[2018-05-15] VITALS (7 sets, daily range): BP systolic 108–156; BP diastolic 58–83
[2018-05-15] MEDS: NS IV 1000 ML 1,000 ML IV SCH ×4 (02:45→21:35)
[2018-05-15] MEDS: PIPERACILLIN/TAZO 4.5 GM/NS 100 ML IV SCH ×6 (02:45→17:49)
[2018-05-15] MEDS: MULTIVIT W/MINERALS TAB (THERAGRAN M) PO SCH (06:06)
[2018-05-15] MEDS: HYDROcodone/APAP 5 MG/325 MG (LORTAB) TAB PO PRN ×2 (06:07→18:53)
[2018-05-15 06:19] LABS: BASOPHILS % (AUTO) 0 % (0-10); EOSINOPHILS # (AUTO) 0.3 10^3/uL (0.0-0.3); EOSINOPHILS % (AUTO) 7 % (0-10); HEMATOCRIT 34 % (40-54); HEMOGLOBIN 10.7 G/DL (13.3-17.7); LYMPHOCYTES # (AUTO) 1.2 X 10^3 (1.0-4.0); LYMPHOCYTES % (AUTO) 24 % (12-44); MEAN CORPUSCULAR HEMOGLOBIN 28 PG (25-34); MEAN CORPUSCULAR HGB CONC 32 G/DL (32-36); MEAN CORPUSCULAR VOLUME 87 FL (80-99); MEAN PLATELET VOLUME 8.3 FL (7.4-10.4); MONOCYTES # (AUTO) 0.4 X 10^3 (0.0-1.0); MONOCYTES % (AUTO) 8 % (0-12); NEUTROPHILS % (AUTO) 62 % (42-75); PLATELET COUNT 195 10^3/uL (130-400); RED BLOOD COUNT 3.87 10^6/uL (4.35-5.85); RED CELL DISTRIBUTION WIDTH 14.2 % (10.0-14.5); WHITE BLOOD COUNT 4.8 10^3/uL (4.3-11.0)
[2018-05-15 06:34] LABS: BUN/CREATININE RATIO 13; CALCIUM 8.8 MG/DL (8.5-10.1); CARBON DIOXIDE 21 MMOL/L (21-32); CHLORIDE 116 MMOL/L (98-107); CREATININE SERUM 0.69 MG/DL (0.60-1.30); GFR ESTIMATED > 60; GLUCOSE 94 MG/DL (70-105); POTASSIUM 3.8 MMOL/L (3.6-5.0); SODIUM 145 MMOL/L (135-145)
--- NOTE | 2018-05-15 06:42 | Pulmonary Progress Note ---
Subjective Time Seen by a Provider: 06:42 Subjective/Events-last exam No complications noted. PT had BM Sepsis Event Evaluation Height, Weight, BMI Height: 5'2.00" Weight: 286lbs. 6.4oz. 129.743508yw; BMI Method:Stated Focused Exam Lactate Level 05/12/18 16:32: Lactic Acid Level 2.44*H 05/12/18 20:30: Lactic Acid Level 1.84 Exam Exam Vital Signs Date Time Temp Pulse Resp B/P (MAP) Pulse Ox O2 Delivery O2 Flow Rate FiO2 05/15/18 00:00 96.9 87 18 108/58 (75) 97 Room Air 05/14/18 20:45 96.0 93 18 128/75 (92) 98 Room Air 05/14/18 20:10 Room Air 05/14/18 16:50 97.0 98 18 123/82 (96) 96 Room Air 05/14/18 12:00 98.2 107 18 124/76 (92) 95 OxyMask 05/14/18 08:00 97.8 110 18 134/81 (98) 97 OxyMask 05/14/18 08:00 Room Air 05/14/18 07:07 102 I & O 05/15/18 07:00 Intake Total 5480 ml Output Total 3450 ml Balance 2030 ml Height & Weight Height: 5'2.00" Weight: 286lbs. 6.4oz. 129.448503hj; BMI Method:Stated General Appearance: No Apparent Distress, WD/WN, Chronically ill, Obese HEENT: Normal ENT Inspection, Other (NG tube) Respiratory: Chest Non Tender, Lungs Clear, Normal Breath Sounds, No Accessory Muscle Use, No Respiratory Distress Cardiovascular: Regular Rate, Rhythm, No Edema, No Gallop, No JVD, No Murmur, Normal Peripheral Pulses Capillary Refill: Less Than 3 Seconds Gastrointestinal: non tender, soft Neurologic/Psychiatric: Alert, Oriented x3, No Motor/Sensory Deficits, Normal Mood/Affect, Motor Weakness (lower legs) Skin: Warm/Dry Results Lab Laboratory Tests 05/14/18 06:05 05/15/18 06:10 Assessment/Plan Assessment/Plan Sepsis with UTI - improving Abx Abdominal pain- mild Elevated liver enzymes -Monitor Sinus tach -MOnitor PSBO -Currently medical management. -Surgery following nocturnal Hypoxia secondary to RYAN -Unable to use CPAP right now secondary to NG tube -out patient work up Spina Bifida with paraplegia below knees bilaterally NESSA DE LA VEGA DO May 15, 2018 06:42
[2018-05-15] MEDS ORDERED: LORATADINE (CLARITIN) 10 MG TAB PO PRN (09:00)
[2018-05-15] MEDS: ASPIRIN 325 MG (5 GR) TABLET PO SCH (09:42)
[2018-05-15] MEDS: ALLOPURINOL 100 MG (ZYLOPRIM) TAB PO SCH (09:42)
[2018-05-15] MEDS: PANTOPRAZOLE 40 MG (PROTONIX) TAB PO SCH (09:42)
[2018-05-15] MEDS: DULoxetine 30 MG (CYMBALTA) CAP PO SCH (09:42)
[2018-05-15] MEDS: LACTOBACILLUS ACIDOPHILUS (PROBIOTIC) CAPSULE PO SCH ×2 (09:42→21:31)
[2018-05-15] MEDS: meTOprolol TARTRATE 25 MG (LOPRESSOR) TABLET PO SCH ×2 (09:42→21:32)
[2018-05-15] MEDS: LEVETIRACETAM 500 MG (KEPPRA) TAB PO SCH ×2 (09:43→21:32)
[2018-05-15] MEDS: METOCLOPRAMIDE 10 MG (REGLAN) TAB PO SCH ×4 (09:43→21:32)
[2018-05-15] MEDS: NYSTATIN CREAM (MYCOSTATIN) 30 GM TUBE TP SCH ×2 (09:44→21:31)
[2018-05-15] MEDS ORDERED: TROUGH ORDER-PHARMACY XX NR (10:00)
--- NOTE | 2018-05-15 11:18 | Progress Note (SOAP) ---
Subjective Date Seen by a Provider: May 15, 2018 Time Seen by a Provider: 11:00 Subjective/Events-last exam doing better. no abdominal pain nor distension. good colostomy output. tolerating clear. Focused Exam Lactate Level 05/12/18 16:32: Lactic Acid Level 2.44*H 05/12/18 20:30: Lactic Acid Level 1.84 Objective Exam Vital Signs Date Time Temp Pulse Resp B/P (MAP) Pulse Ox O2 Delivery O2 Flow Rate FiO2 05/15/18 08:00 Room Air 05/15/18 07:46 OxyMask 3.00 05/15/18 04:00 98.0 82 18 132/76 (94) 100 Room Air 05/15/18 00:00 96.9 87 18 108/58 (75) 97 Room Air 05/14/18 20:45 96.0 93 18 128/75 (92) 98 Room Air 05/14/18 20:10 Room Air 05/14/18 16:50 97.0 98 18 123/82 (96) 96 Room Air 05/14/18 12:00 98.2 107 18 124/76 (92) 95 OxyMask I & O 05/15/18 07:00 Intake Total 5920 ml Output Total 5000 ml Balance 920 ml Capillary Refill : Less Than 3 SecondsLess Than 3 Seconds General Appearance: No Apparent Distress HEENT: PERRL/EOMI Neck: Full Range of Motion Respiratory: Chest Non Tender, Lungs Clear, Normal Breath Sounds Cardiovascular: Regular Rate, Rhythm Gastrointestinal: normal bowel sounds, non tender, soft Extremity: Normal Capillary Refill Neurologic/Psychiatric: Alert Skin: Normal Color Lymphatic: No Adenopathy Results Lab Laboratory Tests 05/14/18 18:40: Vancomycin Level Trough 30.4*H 05/15/18 06:10: White Blood Count 4.8, Red Blood Count 3.87L, Hemoglobin 10.7L, Hematocrit 34L, Mean Corpuscular Volume 87, Mean Corpuscular Hemoglobin 28, Mean Corpuscular Hemoglobin Concent 32, Red Cell Distribution Width 14.2, Platelet Count 195, Mean Platelet Volume 8.3, Neutrophils (%) (Auto) 62, Lymphocytes (%) (Auto) 24, Monocytes (%) (Auto) 8, Eosinophils (%) (Auto) 7, Basophils (%) (Auto) 0, Neutrophils # (Auto) 3.0, Lymphocytes # (Auto) 1.2, Monocytes # (Auto) 0.4, Eosinophils # (Auto) 0.3, Basophils # (Auto) 0.0, Sodium Level 145, Potassium Level 3.8, Chloride Level 116H, Carbon Dioxide Level 21, Anion Gap 8, Blood Urea Nitrogen 9, Creatinine 0.69, Estimat Glomerular Filtration Rate > 60, BUN/ Creatinine Ratio 13, Glucose Level 94, Calcium Level 8.8 05/15/18 09:50: Vancomycin Level Trough 12.1 Microbiology 05/12/18 Blood Culture - Preliminary, Resulted No growth 05/12/18 Influenza Types A,B Antigen (TANESHA) - Final, Complete 05/12/18 Urine Culture - Preliminary, Resulted Mixed Bacterial Brabara Morganella morganii Pseudomonas aeruginosa Strep agalactiae Group B 05/12/18 Gram Stain - Final, Resulted 05/12/18 Wound Culture - Preliminary, Resulted Staphylococcus aureus Staphylococcus epidermidis Assessment/Plan Assessment/Plan Assess & Plan/Chief Complaint ileus s/p diverting colostomy secondary to spina bifida. doing better today. no abd symptoms with adequate ostomy output. will advance diet. Clinical Quality Measures DVT/VTE Risk/Contraindication: Risk Factor Score Per Nursin RFS Level Per Nursing on Admit: 3=High Contraindications-Pharm: Other *list below* MANISH BUSTOS MD May 15, 2018 11:18
[2018-05-15] MEDS: VANCOMYCIN 1500 MG/NS 500 ML IVPB IV SCH ×4 (12:20→23:34)
--- NOTE | 2018-05-15 13:02 | Progress Note-Hospitalist ---
Subjective HPI/CC On Admission Date Seen by Provider: May 15, 2018 Time Seen by Provider: 11:30 Subjective/Events-last exam Patient doing better Advancing diet Watery stool in colostomy bag which appears to be encouraging Feels like his bowels will start to move with substance when he is allowed to eat more Likely will be ready to go tomorrow Micro called me regarding possible resistant organism of Pseudomonas We will evaluate change of antibiotics or discontinuation of all antibiotics tomorrow when I speak to antibiotic specialist Review of Systems General: Fatigue Focused Exam Lactate Level 05/12/18 20:30: Lactic Acid Level 1.84 Objective Exam Vital Signs Vital Signs Date Time Temp Pulse Resp B/P (MAP) Pulse Ox O2 Delivery O2 Flow Rate FiO2 05/15/18 16:55 97.3 69 18 142/78 (99) 98 Room Air 05/15/18 07:46 3.00 Capillary Refill : Less Than 3 SecondsLess Than 3 Seconds General Appearance: No Apparent Distress, WD/WN, Chronically ill, Obese Respiratory: Chest Non Tender, Lungs Clear, Normal Breath Sounds, No Accessory Muscle Use, No Respiratory Distress Cardiovascular: Regular Rate, Rhythm, No Edema, No Gallop, No JVD, No Murmur, Normal Peripheral Pulses Neurologic/Psychiatric: Alert, Oriented x3, No Motor/Sensory Deficits, Normal Mood/Affect, Motor Weakness Skin: Normal Color, Warm/Dry Results/Procedures Lab Laboratory Tests 05/15/18 06:10 Patient resulted labs reviewed. Assessment/Plan Assessment and Plan Assess & Plan/Chief Complaint Assessment: Sepsis with UTI Abdominal pain due to SBO s/p NGT now DC Elevated liver enzymes Sinus tach resolved Nocturnal Hypoxia secondary to RYAN Spina Bifida with paraplegia below knees bilaterally Plan: Abx maintenance CLD and advance Home meds Diagnosis/Problems Diagnosis/Problems (1) Sepsis Status: Acute Qualifiers: Sepsis type: sepsis due to unspecified organism Qualified Codes: A41.9 - Sepsis, unspecified organism (2) Small bowel obstruction Status: Acute (3) UTI (urinary tract infection) Status: Acute Qualifiers: Urinary tract infection type: site unspecified Hematuria presence: without hematuria Qualified Codes: N39.0 - Urinary tract infection, site not specified (4) Spina bifida Status: Chronic Qualifiers: Spinal region: lumbosacral Presence of hydrocephalus: unspecified hydrocephalus presence Qualified Codes: Q05.7 - Lumbar spina bifida without hydrocephalus (5) Paralysis Status: Chronic (6) Suprapubic catheter Status: Chronic (7) Seizure disorder Status: Chronic (8) Chronic pain Status: Chronic Qualifiers: Chronic pain type: chronic pain syndrome Qualified Codes: G89.4 - Chronic pain syndrome Clinical Quality Measures DVT/VTE Risk/Contraindication: Risk Factor Score Per Nursin RFS Level Per Nursing on Admit: 3=High Contraindications-Pharm: Other *list below* TESFAYE SCHAFFER DO May 15, 2018 13:02
[2018-05-15] MEDS: FLUTICASONE NASAL SPRAY (FLONASE) 16 GM BTL NS SCH (21:31)
[2018-05-15] MEDS: DICLOFENAC 1% GEL 100 GM (VOLTAREN) TUBE TP SCH (21:31)
[2018-05-15] MEDS: FAMOTIDINE 20 MG (PEPCID) TABLET PO SCH (21:31)
[2018-05-15] MEDS: ACETAMINOPHEN 500 MG TAB (TYLENOL) PO SCH (21:32)
[2018-05-16] MEDS: PIPERACILLIN/TAZO 4.5 GM/NS 100 ML IV SCH ×4 (02:42→11:23)
[2018-05-16] MEDS: MULTIVIT W/MINERALS TAB (THERAGRAN M) PO SCH (06:02)
[2018-05-16] MEDS: NS IV 1000 ML 1,000 ML IV SCH ×2 (06:02→08:29)
[2018-05-16] MEDS: HYDROcodone/APAP 5 MG/325 MG (LORTAB) TAB PO PRN (06:02)
[2018-05-16 06:20] LABS: BASOPHILS % (AUTO) 0 % (0-10); EOSINOPHILS # (AUTO) 0.3 10^3/uL (0.0-0.3); EOSINOPHILS % (AUTO) 6 % (0-10); HEMATOCRIT 31 % (40-54); LYMPHOCYTES % (AUTO) 22 % (12-44); MEAN CORPUSCULAR HEMOGLOBIN 28 PG (25-34); MEAN CORPUSCULAR HGB CONC 33 G/DL (32-36); MEAN CORPUSCULAR VOLUME 86 FL (80-99); MEAN PLATELET VOLUME 8.4 FL (7.4-10.4); MONOCYTES # (AUTO) 0.3 X 10^3 (0.0-1.0); MONOCYTES % (AUTO) 6 % (0-12); NEUTROPHILS % (AUTO) 66 % (42-75); PLATELET COUNT 210 10^3/uL (130-400); RED BLOOD COUNT 3.56 10^6/uL (4.35-5.85); RED CELL DISTRIBUTION WIDTH 14.3 % (10.0-14.5); WHITE BLOOD COUNT 4.6 10^3/uL (4.3-11.0)
--- NOTE | 2018-05-16 06:31 | Pulmonary Progress Note ---
Subjective Time Seen by a Provider: 06:30 Subjective/Events-last exam No complications noted. Sepsis Event Evaluation Height, Weight, BMI Height: 5'2.00" Weight: 273lbs. 6.4oz. 124.160800ps; BMI Method:Stated Exam Exam Vital Signs Date Time Temp Pulse Resp B/P (MAP) Pulse Ox O2 Delivery O2 Flow Rate FiO2 05/15/18 23:30 97.0 63 18 144/82 (102) 96 Room Air 05/15/18 20:50 Room Air 05/15/18 19:45 97.4 72 18 137/76 (96) 99 Room Air 05/15/18 16:55 97.3 69 18 142/78 (99) 98 Room Air 05/15/18 12:00 97.9 88 18 134/77 (96) 98 Room Air 05/15/18 08:00 97.9 88 18 156/83 (107) 98 Room Air 05/15/18 08:00 Room Air 05/15/18 07:46 OxyMask 3.00 I & O 05/16/18 07:00 Intake Total 9210 ml Output Total 9275 ml Balance -65 ml Height & Weight Height: 5'2.00" Weight: 273lbs. 6.4oz. 124.478228fk; BMI Method:Stated General Appearance: No Apparent Distress, WD/WN, Chronically ill, Obese HEENT: Normal ENT Inspection, Other (NG tube) Neck: Full Range of Motion Respiratory: Chest Non Tender, Lungs Clear, Normal Breath Sounds, No Accessory Muscle Use, No Respiratory Distress Cardiovascular: Regular Rate, Rhythm, No Edema, No Gallop, No JVD, No Murmur, Normal Peripheral Pulses Capillary Refill: Less Than 3 Seconds Gastrointestinal: non tender, soft Extremity: Normal Capillary Refill Neurologic/Psychiatric: Alert, Oriented x3, No Motor/Sensory Deficits, Normal Mood/Affect, Motor Weakness (lower legs) Skin: Warm/Dry Lymphatic: No Adenopathy Results Lab Laboratory Tests 05/15/18 06:10 05/16/18 06:05 Assessment/Plan Assessment/Plan Sepsis with UTI - improving Abx Abdominal pain- mild Elevated liver enzymes -Monitor Sinus tach -MOnitor PSBO -Currently medical management. -Surgery following nocturnal Hypoxia secondary to RYAN -out patient work up Spina Bifida with paraplegia below knees bilaterally Pt is doing well from pulmonary standpoint. I am going to sign off. Please call with any questions/concerns. NESSA DE LA VEGA DO May 16, 2018 06:31
[2018-05-16 06:34] LABS: BUN/CREATININE RATIO 10; CALCIUM 8.8 MG/DL (8.5-10.1); CARBON DIOXIDE 22 MMOL/L (21-32); CHLORIDE 117 MMOL/L (98-107); CREATININE SERUM 0.73 MG/DL (0.60-1.30); GFR ESTIMATED > 60; GLUCOSE 98 MG/DL (70-105); POTASSIUM 3.7 MMOL/L (3.6-5.0); SODIUM 147 MMOL/L (135-145)
[2018-05-16 07:38] VITALS: BP 141/77
[2018-05-16] MEDS: LEVETIRACETAM 500 MG (KEPPRA) TAB PO SCH (08:37)
[2018-05-16] MEDS: ALLOPURINOL 100 MG (ZYLOPRIM) TAB PO SCH (08:37)
[2018-05-16] MEDS: METOCLOPRAMIDE 10 MG (REGLAN) TAB PO SCH (08:37)
[2018-05-16] MEDS: DULoxetine 30 MG (CYMBALTA) CAP PO SCH (08:38)
[2018-05-16] MEDS: FAMOTIDINE 20 MG (PEPCID) TABLET PO SCH (08:38)
[2018-05-16] MEDS: PANTOPRAZOLE 40 MG (PROTONIX) TAB PO SCH (08:38)
[2018-05-16] MEDS: LACTOBACILLUS ACIDOPHILUS (PROBIOTIC) CAPSULE PO SCH (08:38)
[2018-05-16] MEDS: meTOprolol TARTRATE 25 MG (LOPRESSOR) TABLET PO SCH (08:38)
[2018-05-16] MEDS: ASPIRIN 325 MG (5 GR) TABLET PO SCH (08:38)
[2018-05-16] MEDS: NYSTATIN CREAM (MYCOSTATIN) 30 GM TUBE TP SCH (08:41)
--- NOTE | 2018-05-16 11:58 | Discharge Inst-Skilled Nursing ---
Discharge Inst-Skilled NF Patient Instructions Patient Problems: Spina bifida Sepsis Chronic resistant UTI s/p SBO Goal: Return to baseline ADL's Consult/Follow Up/Orders Follow Up Appt.: DR Nuñez for [place] rounds Skilled NF Admit to: [facility] Certification (SNF) I certify that SNF services are required to be given on an inpatient basis because of the above named patient's need for custodial care on a continuing basis for the conditions(s) for which he/she was receiving inpatient hospital services prior to his/her transfer to the SNF. Senior Care Facility Order: Nursing Services, Energy Administrator-Evaluate & Treat, Physical Therapy-Evaluate & Treat Discharge Diet: No Restrictions Daily Activity as Tolerated: Yes New & Resume Previous Orders Madelaine Estrella May 16, 2018 11:57 MADELAINE ESTRELLA DO May 16, 2018 11:58
--- NOTE | 2018-05-16 11:59 | Discharge Summary-Hospitalist ---
Diagnosis/Chief Complaint Date of Admission May 12, 2018 at 19:37 Date of Discharge Discharge Date: May 16, 2018 Discharge Diagnosis (1) Sepsis Status: Resolved (2) Small bowel obstruction Status: Resolved (3) UTI (urinary tract infection) Status: Chronic (4) Spina bifida Status: Chronic (5) Paralysis Status: Chronic (6) Suprapubic catheter Status: Chronic (7) Seizure disorder Status: Chronic (8) Chronic pain Status: Chronic Discharge Summary Discharge Physical Exam Allergies: Coded Allergies: latex (Verified Allergy, Unknown, 03/31/17) Vitals & I&Os Vital Signs Date Time Temp Pulse Resp B/P (MAP) Pulse Ox O2 Delivery O2 Flow Rate FiO2 05/16/18 12:38 98.4 68 16 133/70 (91) 99 Room Air 05/15/18 07:46 3.00 General Appearance: No Apparent Distress, WD/WN, Chronically ill Neurologic/Psychiatric: Alert, Oriented x3, No Motor/Sensory Deficits, Normal Mood/Affect Hospital Course Hospital course: Patient had a brief hospital course although it started in the ICU with respiratory insufficiency due to sepsis and small bowel obstruction with acute on chronic UTI. He has a history of spina bifida and resides in a senior living. He has a suprapubic catheter. He was placed on broad-spectrum antibiotics and pulmonary consultation ensued patient was placed on Vapotherm to maintain oxygen saturation and he did improve enough to be moved to the fourth floor. Small bowel obstruction was managed with NG tube placement in general surgery management and that eventually resolved. Colostomy maintained good function. Chronic UTI noted to have very resistant organisms which patient remained afebrile vital signs remained stable and it was felt that it was not an infection that required extensive antibiotic regimen and he was discharged to the senior living in improved status. Labs (last 24 hrs) Laboratory Tests 05/16/18 06:05: White Blood Count 4.6, Red Blood Count 3.56L, Hemoglobin 10.0L, Hematocrit 31L, Mean Corpuscular Volume 86, Mean Corpuscular Hemoglobin 28, Mean Corpuscular Hemoglobin Concent 33, Red Cell Distribution Width 14.3, Platelet Count 210, Mean Platelet Volume 8.4, Neutrophils (%) (Auto) 66, Lymphocytes (%) (Auto) 22, Monocytes (%) (Auto) 6, Eosinophils (%) (Auto) 6, Basophils (%) (Auto) 0, Neutrophils # (Auto) 3.0, Lymphocytes # (Auto) 1.0, Monocytes # (Auto) 0.3, Eosinophils # (Auto) 0.3, Basophils # (Auto) 0.0, Sodium Level 147H, Potassium Level 3.7, Chloride Level 117H, Carbon Dioxide Level 22, Anion Gap 8, Blood Urea Nitrogen 7, Creatinine 0.73, Estimat Glomerular Filtration Rate > 60, BUN/ Creatinine Ratio 10, Glucose Level 98, Calcium Level 8.8 Microbiology 05/12/18 Blood Culture - Preliminary, Resulted No growth 05/12/18 Influenza Types A,B Antigen (TANESHA) - Final, Complete 05/12/18 Urine Culture - Final, Complete Mixed Bacterial Barbara Morganella morganii Pseudomonas aeruginosa Strep agalactiae Group B See Comments 05/12/18 Gram Stain - Final, Complete 05/12/18 Wound Culture - Final, Complete Staphylococcus aureus Staphylococcus epidermidis Patient resulted labs reviewed. Pending Labs Laboratory Tests 05/16/18 06:05: White Blood Count 4.6, Red Blood Count 3.56, Hemoglobin 10.0, Hematocrit 31, Mean Corpuscular Volume 86, Mean Corpuscular Hemoglobin 28, Mean Corpuscular Hemoglobin Concent 33, Red Cell Distribution Width 14.3, Platelet Count 210, Mean Platelet Volume 8.4, Neutrophils (%) (Auto) 66, Lymphocytes (%) (Auto) 22, Monocytes (%) (Auto) 6, Eosinophils (%) (Auto) 6, Basophils (%) (Auto) 0, Neutrophils # (Auto) 3.0, Lymphocytes # (Auto) 1.0, Monocytes # (Auto) 0.3, Eosinophils # (Auto) 0.3, Basophils # (Auto) 0.0, Sodium Level 147, Potassium Level 3.7, Chloride Level 117, Carbon Dioxide Level 22, Anion Gap 8, Blood Urea Nitrogen 7, Creatinine 0.73, Estimat Glomerular Filtration Rate > 60, BUN/ Creatinine Ratio 10, Glucose Level 98, Calcium Level 8.8 Discussion & Recommendations Discharge Planning: <30 minutes discharge planning Discharge Home Medications: Active Scripts Active Reported Aspercreme (Lidocaine HCl) 76.5 Gm Cream..g. TP TID APPLY TO BACK FROM SHOULDERS TO TOP OF BUTTOCKS Boudreauxs (Zinc Oxide) 57 Gm Oint...g. TP BID APPLY TO BUTTOCKS AND JAJA WOUND Aspirin 325 Mg Tablet 325 Mg PO DAILY Allopurinol 100 Mg Tablet 100 Mg PO DAILY Tylenol Extra Strength (Acetaminophen) 500 Mg Tablet 500 Mg PO HS Metoprolol Tartrate 25 Mg Tablet 12.5 Mg PO BID TAKES 1/2 (25MG) TABLET NOTIFY PCP IF <80/50 OR >180/110 OR PULSE <50 OR >110 Keppra (Levetiracetam) 500 Mg Tablet 1,500 Mg PO BID TAKES 3 (500MG) TABLETS Lactobacillus Tablet (L. Acidophilus/L.bulgaricus) 1 Each Tablet 1 Tab PO BID Hydrocodone-Acetamin 5-325 mg (Hydrocodone/Acetaminophen) 1 Each Tablet 1-2 Tab PO Q6H PRN Fluticasone Propionate 16 Gm [place].susp 1 [place] NS HS Voltaren (Diclofenac Sodium) 100 Gm Gel..gram. 4 Gm TP Q4H PRN Voltaren (Diclofenac Sodium) 100 Gm Gel..gram. 4 Gm TP HS APPLY TO LOWER BACK AND BOTH SHOULDERS Cymbalta (Duloxetine HCl) 30 Mg Capsule.dr 90 Mg PO DAILY TAKES 3 (30MG) CAPSULES Prochlorperazine 25 Mg Supp.rect 25 Mg RC Q12H PRN Zyrtec (Cetirizine HCl) 10 Mg Tablet 10 Mg PO DAILY PRN Zofran (Ondansetron HCl) 4 Mg Tab 4 Mg PO Q8H PRN Tacrolimus 30 Gm Oint...g. TP BID APPLY TO MIDLINE ABDOMINAL WOUND Reglan (Metoclopramide HCl) 10 Mg Tablet 10 Mg PO QID Protonix (Pantoprazole Sodium) 40 Mg Tablet.dr 40 Mg PO DAILY Preparation H Ointment (Phenyleph/Mineral Oil/Petrolat) 28 Gm Oint.appl RC Q6H PRN Pataday (Olopatadine HCl) 2.5 Ml Drops 1 Drop OU DAILY PRN Nystatin 15 Gm Cream..g. TP BID APPLY TO BUTTOCKS/GROIN AREA Daily Multiple Vitamin (Multivitamin) 1 Each Tablet 1 Tab PO DAILY Instructions to patient/family Please see electronic discharge instructions given to patient. Clinical Quality Measures DVT/VTE Risk/Contraindication: Risk Factor Score Per Nursin RFS Level Per Nursing on Admit: 3=High Contraindications-Pharm: Other *list below* Problem Qualifiers (1) Sepsis: Sepsis type: sepsis due to unspecified organism Qualified Codes: A41.9 - Sepsis, unspecified organism (2) UTI (urinary tract infection): Urinary tract infection type: site unspecified Hematuria presence: without hematuria Qualified Codes: N39.0 - Urinary tract infection, site not specified (3) Spina bifida: Spinal region: lumbosacral Presence of hydrocephalus: unspecified hydrocephalus presence Qualified Codes: Q05.7 - Lumbar spina bifida without hydrocephalus (4) Chronic pain: Chronic pain type: chronic pain syndrome Qualified Codes: G89.4 - Chronic pain syndrome TESFAYE SCHAFFER DO May 16, 2018 11:59
--- NOTE | 2018-05-16 12:13 | NUR ---
CM DISCHARGE PLANNING: Patient is discharging back to [facility] today via their transport. He will be skilled for Nursing, Physical, et Occupational therapies. Finalized d/c orders faxed, red discharge packet started for nursing. No further interventions noted at this time.
[2018-05-16 12:38] VITALS: BP 133/70
--- NOTE | 2018-05-16 12:51 | NUR ---
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 He shared that his kleber has grown through the last year, believing that he should not be alive today, and that God [id number] and encouraged him. 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
[2018-05-16 14:17] VITALS: BP 133/70
--- NOTE | 2018-05-16 14:23 | NUR ---
REPORT GIVEN TO KARIE AT [facility] AT [id number]
== END 2018-05-16 14:05 | DRG 698 ==
LOC: ER 16:21 → ICU 19:37 → 4TH 05-13 11:08
PROVIDERS: ADMIT Family Medicine; ATTEND Family Medicine
PROC: 02HV33Z Insertion of Infusion Device into Superior Vena Cava, Percutaneous Approach (ICD-10-PCS; principal; 2018-05-12)
PROC: 0D9670Z Drainage of Stomach with Drainage Device, Via Natural or Artificial Opening (ICD-10-PCS; 2018-05-12)
DX: T83.510A Infection and inflammatory reaction due to cystostomy catheter, initial encounter (principal); A41.9 Sepsis, unspecified organism; N39.0 Urinary tract infection, site not specified; K46.0 Unspecified abdominal hernia with obstruction, without gangrene; K56.690 Other partial intestinal obstruction; Q05.7 Lumbar spina bifida without hydrocephalus; G82.22 Paraplegia, incomplete; I87.2 Venous insufficiency (chronic) (peripheral); J45.909 Unspecified asthma, uncomplicated; R74.8 Abnormal levels of other serum enzymes; G47.33 Obstructive sleep apnea (adult) (pediatric); I10 Essential (primary) hypertension; E11.9 Type 2 diabetes mellitus without complications; F32.9 Major depressive disorder, single episode, unspecified; Z90.49 Acquired absence of other specified parts of digestive tract; Z93.2 Ileostomy status; Z93.59 Other cystostomy status; Z98.2 Presence of cerebrospinal fluid drainage device; G89.4 Chronic pain syndrome
CPT/HCPCS: 36415; 71045; 74177; 80048; 80053; 80202; 81000; 83605; 83735; 84100; 85007; 85025; 85027; 85610; 85730; 87040; 87070; 87077; 87088; 87181; 87186; 87205; 87804; 93005; 93041; 96361; 96365; 96367; 96375; 96376

== ENCOUNTER 2018-06-15 08:27 | Outpatient (CLI) | payer MEDICARE, MEDICAID ==
[~2018-06-15] VITALS: Ht 157.5 cm; Wt 134.7 kg
[~2018-06-15 08:27] MED LIST: ACET-2267 PO; ALLO100T PO; ASPI-808 PO; CETI10TA20 PO; DICL100G18 TP; DULO30CA3 PO; FLUT16SP22 NS; HYDR-3812 PO; L. A1TAB10 PO; LEVE500T99 PO; LIDO76.5 TP; METO-310 PO; METO-333 PO; MULT-35 PO; NYST15CR TP; OLOP2.5D OU; ONDN4T PO; PANT40TA2 PO; PHEN28OI6 RC; PROC25SU3 RC; TACR30OI5 TP; ZINC57OI6 TP
[2018-06-15 08:32] VITALS: BP 135/84
[2018-06-16 09:19] VITALS: BP 119/82
== END 2018-06-15 09:45 | disposition home or self-care (01) ==
LOC: SDC 08:27
PROVIDERS: ATTEND Nurse Practitioner Family
DX: N39.0 Urinary tract infection, site not specified (principal)
CPT/HCPCS: 76937

== ENCOUNTER → 2018-06-16 | Outpatient (CLI) | payer MEDICARE, MEDICAID | LOC: WOUNDCARE 08:03 | PROVIDERS: ATTEND Nurse Practitioner | DX: E11.622 Type 2 diabetes mellitus with other skin ulcer (principal); L98.492 Non-pressure chronic ulcer of skin of other sites with fat layer exposed; Q05.9 Spina bifida, unspecified | CPT/HCPCS: 11042 ==

== ENCOUNTER 2018-06-17 14:05 | Outpatient (RCR) | payer MEDICARE, MEDICAID ==
[2018-06-27] MEDS ORDERED: NAPR-1071 PO (16:42)
[2018-09-07] MEDS ORDERED: HYDR28.3 TP (12:09)
[2018-09-07] MEDS ORDERED: BETA15CR3 TP (12:09)
[2018-09-07] MEDS ORDERED: MULT-633 PO (12:09)
[2018-09-07] MEDS ORDERED: ACET-2267 PO (12:10)
[2018-09-07] MEDS ORDERED: NAPR-915 PO (12:10)
[2018-09-07] MEDS ORDERED: MENT118G TP (12:10)
[2018-09-07] MEDS ORDERED: POVI30SO TOP (12:17)
[2018-09-07] MEDS ORDERED: ONDN4T PO (12:17)
[2018-09-07] MEDS ORDERED: KETO15CR2 TP (12:17)
[2018-09-09] MEDS ORDERED: CIPR500T21 PO (10:12)
[2018-09-09] MEDS ORDERED: METO-310 PO (10:12)
== END 2018-09-15 | disposition home or self-care (01) ==
LOC: LABNPT 14:05
PROVIDERS: ATTEND Nurse Practitioner Family
DX: Z51.81 Encounter for therapeutic drug level monitoring (principal); Z79.2 Long term (current) use of antibiotics
CPT/HCPCS: 80150

== ENCOUNTER → 2018-06-19 | Outpatient (CLI) | payer MEDICARE, MEDICAID | LOC: LABNPT 13:20 | PROVIDERS: ATTEND Family Medicine | DX: N39.0 Urinary tract infection, site not specified (principal); Z79.2 Long term (current) use of antibiotics | CPT/HCPCS: 80150 ==

== ENCOUNTER 2018-06-27 15:47 | Emergency (ER) | payer MEDICARE, MEDICAID ==
[~2018-06-27] VITALS: Ht 157.5 cm; Wt 134.7 kg
[2018-06-27] MEDS ORDERED: ASPIRIN 81 MG CHEW (CHILDREN'S ASA) PO ONE (16:00)
[2018-06-27] MEDS ORDERED: KETOROLAC 30 MG/ML VIAL IVP ONE (16:00)
--- OUTSIDE RECORDS SUMMARY | 2018-06-27 16:01 | XMS REPORT | CCD ---
Author Author Angi Rodriguez Organization [facility] Address [address] [place] [address] Phone Care Team Providers Care Resistor Winder Name Role Phone PP Unavailable CCM Unavailable Summary Purpose Interface Exchange Insurance Providers Payer name Policy type / Coverage type Covered alliance party ID Effective Begin Date Effective End Date WPS Medicare Part B Medicare Part B [id number] Unknown Unknown [employer] - Medicare Part B [id number] Unknown Unknown Family history Father Diagnosis Age At Onset Hyperlipidemia Unknown Hypertension Unknown Social History Social History Element Codes Description Effective Dates Living arrangements Unknown [facility] 11/05/2017 Marital status Unknown Alondra 04/07/2016 Number of children Unknown 0 04/07/2016 Employment Unknown Currently unemployed 04/07/[address]: 356583410 Never smoker 04/07/[address]: 556973503 Never drinks alcohol 04/07/2016 Allergies, Adverse Reactions, Alerts Substance Reaction Codes Entered Date Inactivated Date Status Latex Unknown 04/07/2016 No Inactive Date Active * NO KNOWN DRUG ALLERGIES Unknown 04/07/2016 No Inactive Date Active Past Medical History Illness Codes Condition Status Onset Date Resolved Date Impacted cerumen, bilateral ICD-9: 380.4 ICD-10: H61.23 Active 05/31/2018 Unknown Other otitis externa, right ear ICD-9: 380.22 ICD-10: H60.8X1 Active 05/31/2018 Unknown Encounter for follow-up examination after completed treatment for conditions other than malignant neoplasm ICD-9: V67.59 ICD-10: Z09 Active 05/23/2018 Unknown Essential (primary) hypertension ICD-9: 401.1 ICD-10: I10 Active 09/30/2016 Unknown Major depressive disorder, single episode, moderate ICD-9: 296.22 ICD-10: F32.1 Active 09/30/2016 Unknown Muscle spasm of back ICD-9: 724.8 ICD-10: M62.830 Active 02/10/2017 Unknown Other headache syndrome ICD-9: 339.89 ICD-10: G44.89 Active 12/07/2017 Unknown Weakness ICD-9: 780.79 ICD-10: R53.1 Active 05/23/2018 Unknown Pressure ulcer of contiguous site of [...] Problems Condition Codes Effective Dates Condition Status Impacted cerumen, bilateral ICD-9: 380.4 ICD-10: H61.23 05/31/2018 Active Other otitis externa, right ear ICD-9: 380.22 ICD-10: H60.8X1 05/31/2018 Active Encounter for follow-up examination after completed treatment for conditions other than malignant neoplasm ICD-9: V67.59 ICD-10: Z09 05/23/2018 Active Essential (primary) hypertension ICD-9: 401.1 ICD-10: I10 09/30/2016 Active Major depressive disorder, single episode, moderate ICD-9: 296.22 ICD-10: F32.1 09/30/2016 Active Muscle spasm of back ICD-9: 724.8 ICD-10: M62.830 02/10/2017 Active Other headache syndrome ICD-9: 339.89 ICD-10: G44.89 12/07/2017 Active Weakness ICD-9: 780.79 ICD-10: R53.1 05/23/2018 Active Pressure ulcer of contiguous site of [...] hydrocodone 5 mg-acetaminophen 325 mg tablet RxNorm: 494748 1-2 Tablet(s) PO Q6 as needed 06/20/2018 07/19/2018 Active ciprofloxacin 0.3 % eye drops RxNorm: 121309 1 Drop(s) otic (ear) BID 05/31/2018 06/06/2018 Inactive hydrocodone 5 mg-acetaminophen 325 mg tablet RxNorm: 976655 1-2 Tablet(s) PO Q6 as needed 03/08/2018 06/19/2018 Inactive hydrocodone 5 mg-acetaminophen 325 mg tablet RxNorm: 477484 1-2 Tablet(s) PO Q6 as needed 12/30/2017 03/07/2018 Inactive Cymbalta 30 mg capsule,delayed release RxNorm: 135232 3 Capsule(s) PO daily 12/07/2017 01/31/2018 Inactive febuxostat 40 mg tablet RxNorm: 176684 1 Tablet(s) PO daily 05/11/2018 Inactive levetiracetam 1,000 mg tablet RxNorm: 334073 1 Tablet(s) PO BID 10/14/2017 05/11/2018 Inactive levetiracetam 500 mg tablet RxNorm: 356318 3 Tablet(s) PO BID 10/14/2017 11/12/2017 Inactive aspirin 325 mg tablet RxNorm: 688884 1 Tablet(s) PO daily 201705/11/2018 Inactive metoprolol tartrate 25 mg tablet RxNorm: 485134 1/2 Tablet(s) PO BID 10/14/2017 11/12/2017 Inactive Protonix 40 mg tablet,delayed release RxNorm: 293935 1 Tablet(s) PO daily 10/14/2017 05/11/2018 Inactive hydrocodone 5 mg-acetaminophen 325 mg tablet RxNorm: 518500 1 Tablet(s) PO QID as needed 10/14/2017 12/29/2017 Inactive Reglan 10 mg tablet RxNorm: 940693 1 Tablet(s) PO QID 201711/12/2017 Inactive fluoxetine 20 mg tablet RxNorm: 873805 1 Tablet(s) PO daily 10/14/2017 Inactive Cymbalta 30 mg capsule,delayed release RxNorm: 101436 1 Capsule(s) PO daily 10/14/2017 12/06/2017 Inactive Zofran 4 mg tablet RxNorm: 492557 1 Tablet(s) PO TID as needed 09/20/2017 09/29/2017 Inactive hydrocodone 5 mg-acetaminophen 325 mg tablet RxNorm: 906903 1-2 Tablet(s) PO Q6 as needed 09/20/2017 10/12/2017 Inactive naproxen 500 mg tablet RxNorm: 190196 TAKE ONE TABLET BY MOUTH TWICE DAILY NEEDED 03/29/2017 09/24/2017 Inactive Generic For:*NAPROSYN 500 MG TABLET 2016 2:53:48 PM Prozac 10 mg capsule RxNorm: 298830 1 Capsule(s) PO daily 03/2910/13/2017 Inactive hydrochlorothiazide 12.5 mg capsule RxNorm: 075724 1 Capsule(s) PO daily 03/12/2017 04/10/2017 Inactive hydrochlorothiazide 12.5 mg capsule RxNorm: 957790 1 Capsule(s) PO daily 03/12/2017 03/11/2017 Inactive lisinopril 40 mg tablet RxNorm: 935173 1 Tablet(s) PO daily 03/07/2017 Inactive lisinopril 40 mg tablet RxNorm: 872095 1 Tablet(s) PO daily 04/06/2017 Inactive melatonin 3 mg tablet RxNorm: 400406 1 Tablet(s) PO QHS as needed insomnia 03/05/2017 No Stop Date Active Voltaren 1 % topical gel RxNorm: 533630 1 Application TOP QID as needed et at HS 02/23/2017 05/23/2017 Inactive Voltaren 1 % topical gel RxNorm: 771998 1 Application TOP QID as needed et at 02/03/2017 02/22/2017 Inactive lisinopril 20 mg tablet RxNorm: 883991 TAKE ONE TABLET BY MOUTH EVERY DAY 01/14/2017 03/05/2017 Inactive Generic For:*PRINIVIL 20 MG TABLET 01/13/2017 2:26: 55 PM lisinopril 20 mg tablet RxNorm: 124554 1 Tablet(s) PO daily 06/201601/13/2017 Inactive lisinopril 10 mg tablet RxNorm: 076935 1 Tablet(s) PO TAKE ONE TABLET BY MOUTH ONE TIME DAILY 11/27/2016 12/14/2016 Inactive Generic For:PRINIVIL 5 MG TABLET pt is out of medication 11/18/2016 3:16:14 PM lisinopril 5 mg tablet RxNorm: 852849 TAKE ONE TABLET BY MOUTH ONE TIME DAILY 11/24/2016 11/26/2016 Inactive Generic For:PRINIVIL 5 MG TABLET pt is out of medication 11/18/2016 3:16:14 PM Prozac 10 mg capsule RxNorm: 174878 1 Capsule(s) PO daily 10/2303/21/2017 Inactive Voltaren 1 % topical gel RxNorm: 554394 1 Application TOP QID as needed et at 10/16/2016 02/02/2017 Inactive Prozac 10 mg capsule RxNorm: 115299 1 Capsule(s) PO daily 10/0110/22/2016 Inactive Voltaren 1 % topical gel RxNorm: 543758 1 Application TOP QID as needed et at 09/23/2016 10/15/2016 Inactive Voltaren 1 % topical gel RxNorm: 689747 1 Application TOP QID as needed et at 09/23/2016 09/22/2016 Inactive Voltaren 1 % topical gel RxNorm: 754970 1 Application TOP QID as needed et at 09/23/2016 09/22/2016 Inactive Flonase Allergy Relief 50 mcg/actuation nasal spray, suspension RxNorm: 7621249 1 [place] NASAL each nostril BID as needed 09/11/2016 02/07/2017 Inactive Flonase Allergy Relief 50 mcg/actuation nasal spray, suspension RxNorm: 9203920 1 [place] NASAL each nostril BID as needed 09/11/2016 09/10/2016 Inactive lisinopril 5 mg tablet RxNorm: 352020 TAKE ONE TABLET BY MOUTH ONE TIME DAILY -LOT : for 90 days 08/25/2016 11/22/2016 Inactive naproxen 500 mg tablet RxNorm: 303431 1 Tablet(s) PO BID as needed 06/17/2016 03/28/2017 Inactive Zithromax Z-Robel 250 mg tablet RxNorm: 010781 1 Tablet(s) PO UD 06/05/2016 07/22/2016 Inactive z pack as directed- patient at [facility] Miralax 17 gram/dose oral powder RxNorm: 834337 1 PO BID 2016 No Stop Date Active Bactrim DS 800 mg-160 mg tablet RxNorm: 122934 1 Tablet(s) PO BID 05/06/2016 05/15/2016 Inactive Zithromax Z-Robel 250 mg tablet RxNorm: 752626 1 Tablet(s) PO daily 04/08/2016 04/12/2016 Inactive nystatin 100,000 unit/gram topical cream RxNorm: 773148 1 Gram(s) TOP BID No Start Date Active Tylenol Extra Strength 500 mg tablet RxNorm: 688413 Tablet(s) PO as needed No Start Date Active lactobacillus acidophilus (bulk) RxNorm: 6205 miscellaneous No Start Date Active Zyrtec 10 mg tablet RxNorm: 7765843 1 Tablet(s) PO daily No Start Date Active Pataday 0.2 % eye drops RxNorm: 1156517 1 Drop(s) ophthalmic (eye) daily No Start Date Active Ginkoba M-E oral RxNorm: 791287 oral No Start Date Active Vitamin C 500 mg tablet RxNorm: 357862 1 Tablet(s) PO daily No Start Date Active Calmoseptine 0.44 %-20.6 % topical ointment RxNorm: 714102 1 Application TOP QID as needed No Start Date Active Miralax 17 gram/dose oral powder RxNorm: 679039 1 PO daily No Start Date 05/28/2016 Inactive Flonase 50 mcg/actuation nasal spray,suspension RxNorm: 8046531 1 [place] NASAL BID No Start Date 09/11/2016 Inactive omeprazole 20 mg capsule,delayed release RxNorm: 963479 1 Capsule(s) PO daily No Start Date 10/13/2017 Inactive lisinopril 5 mg tablet RxNorm: 508554 1 Tablet(s) PO daily No Start Date 08/24/2016 Inactive Zofran 4 mg tablet RxNorm: 027209 1 Tablet(s) PO TID as needed No Start Date 09/19/2017 Inactive Zithromax Z-Robel oral RxNorm: oral No Start Date 04/07/2016 Inactive Zithromax Z-Robel 250 mg tablet RxNorm: 104316 1 Tablet(s) PO UD No Start Date 06/04/2016 Inactive z pack as directed- patient at [facility] Medication Administered No Medication Administered data Immunizations No Immunization data Assessments Condition Codes Effective Dates Impacted cerumen, bilateral ICD-10: H61.23 ICD-9: 380.4 05/31/2018 Other otitis externa, right ear ICD-10: H60.8X1 ICD-9: 380.22 05/31/2018 Major depressive disorder, single episode, moderate ICD-10: F32.1 ICD-9: 296.22 05/23/2018 Weakness ICD-10: R53.1 ICD-9: 780.79 05/23/2018 Essential (primary) hypertension ICD-10: I10 ICD-9: 401.1 05/23/2018 Encounter for follow-up examination after completed treatment for conditions other than malignant neoplasm ICD-10: Z09 ICD-9: V67.59 05/23/2018 Muscle spasm of back ICD-10: M62.830 ICD-9: 724.8 12/07/2017 Other headache syndrome ICD-10: G44.89 ICD-9: 339.89 12/07/2017 Pressure ulcer of contiguous site of [...] Visit Reason For Visit Effective Dates Notes otalgia 05/31/2018 Hospital Follow Up 05/23/2018 hypertension 12/07/2017 hypertension 11/04/2017 Hospital Follow Up 10/14/2017 hernia 03/23/2017 back pain 03/04/2017 back pain 02/10/2017 hypertension 12/16/2016 headache 09/30/2016 shoulder pain 07/23/2016 muscle weakness 06/17/2016 pain rash 05/06/2016 hypertension 04/07/2016 Results Observation Observation Code Item Item Code Result Date Metabolic Ord15 NA 135 mEq/L 06/14/2018 Metabolic Ord15 K 4.2 mEq/L 06/14/2018 Metabolic Ord15 CL 100 mEq/L 06/14/2018 Metabolic Ord15 CO2 29.0 mEq/L 06/14/2018 Metabolic Ord15 GLUCOSE 108 mg/dL 06/14/2018 Metabolic Ord15 BUN 11 mg/dL 06/14/2018 Metabolic Ord15 Creat 0.7 mg/dL 06/14/2018 Metabolic Ord15 B/C Ratio 15.9 Ratio 06/14/2018 Metabolic Ord15 eGFR 143 ml/min/1.73m2 06/14/2018 Metabolic Ord15 Osmo 270 mOsmo 06/14/2018 Metabolic Ord15 ANION GAP 10 06/14/2018 Metabolic Ord15 CALCIUM 9.5 mg/dL 06/14/2018 Culture Urine [id number] URINE CULTURE SEE NOTES 06/13/2018 Urine Culture Ucult Complete >100,000 col/ml aerobic growth sent to ref lab 06/10/2018 Urinalysis Ord28 U-Color Yellow 06/09/2018 Urinalysis Ord28 U-Clarity Clear 06/09/2018 Urinalysis Ord28 U-Gluc Negative 06/09/2018 Urinalysis Ord28 U-Bili Negative 06/09/2018 Urinalysis Ord28 U-Ketone Negative 06/09/2018 Urinalysis Ord28 U-SG 1.010 06/09/2018 Urinalysis Ord28 U-Blood Moderate 06/09/2018 Urinalysis Ord28 U-pH 7.0 06/09/2018 Urinalysis Ord28 U-Protein Negative 06/09/2018 Urinalysis Ord28 U-Urobilin 0.2 E.U./dL E.U./dL 06/09/2018 Urinalysis Ord28 U-Nitrites Negative 06/09/2018 Urinalysis Ord28 U-Leuk Large 06/09/2018 Urinalysis Ord28 U-Bact 3+ 06/09/2018 Urinalysis Ord28 U-Squamous Epi None per/HPF 06/09/2018 Urinalysis Ord28 U-Crystal None per/HPF 06/09/2018 Urinalysis Ord28 U-Mucus None 06/09/2018 Urinalysis Ord28 U-Renal tubular epi None 06/09/2018 Urinalysis Ord28 U-RBC 5-10 per/HPF 06/09/2018 Urinalysis Ord28 U-Transitional epi None per/HPF 06/09/2018 Urinalysis Ord28 U-WBC 40-50 per/HPF 06/09/2018 Urinalysis Ord28 U-Cast None per/HPF 06/09/2018 Urinalysis Ord28 U-VOL VOLUME SUFFICIENT (10mL) 06/09/2018 Urinalysis Ord28 U-Com Culture to follow 06/09/2018 Urinalysis Ord28 U-Yeast NEGATIVE 06/09/2018 Culture Urine [id number] URINE CULTURE SEE NOTES 05/27/2018 Urine Culture Ucult Complete >100,000 col/ml aerobic growth sent to ref lab 05/25/2018 Urinalysis Ord28 U-Color Yellow 05/24/2018 Urinalysis Ord28 U-Clarity Slightly Cloudy 05/24/2018 Urinalysis Ord28 U-Gluc Negative 05/24/2018 Urinalysis Ord28 U-Bili Negative 05/24/2018 Urinalysis Ord28 U-Ketone Negative 05/24/2018 Urinalysis Ord28 U-SG 1.010 05/24/2018 Urinalysis Ord28 U-Blood Moderate 05/24/2018 Urinalysis Ord28 U-pH 6.0 05/24/2018 Urinalysis Ord28 U-Protein 100 mg/dL 05/24/2018 Urinalysis Ord28 U-Urobilin 0.2 E.U./dL E.U./dL 05/24/2018 Urinalysis Ord28 U-Nitrites Negative 05/24/2018 Urinalysis Ord28 U-Leuk Large 05/24/2018 Urinalysis Ord28 U-Bact 1+ 05/24/2018 Urinalysis Ord28 U-Squamous Epi None per/HPF 05/24/2018 Urinalysis Ord28 U-Crystal None per/HPF 05/24/2018 Urinalysis Ord28 U-Mucus None 05/24/2018 Urinalysis Ord28 U-Renal tubular epi None 05/24/2018 Urinalysis Ord28 U-RBC 5-10 per/HPF 05/24/2018 Urinalysis Ord28 U-Transitional epi None per/HPF 05/24/2018 Urinalysis Ord28 U-WBC TNTC per/HPF 05/24/2018 Urinalysis Ord28 U-Cast None per/HPF 05/24/2018 Urinalysis Ord28 U-VOL VOLUME SUFFICIENT (10mL) 05/24/2018 Urinalysis Ord28 U-Com Culture to follow 05/24/2018 Urinalysis Ord28 U-Yeast NEGATIVE 05/24/2018 Metabolic Ord15 NA 138 mEq/L 12/27/2017 Metabolic [...] Ord15 CALCIUM 9.4 mg/dL 12/27/2017 Comp Metabolic Bjp026 NA 142 mEq/L 10/15/2017 Comp Metabolic Oms481 K 4.2 mEq/L 10/15/2017 Comp Metabolic Fbx211 CL 107 mEq/L 10/15/2017 Comp Metabolic Fmw917 CO2 27.0 mEq/L 10/15/2017 Comp Metabolic Kzh724 ANION GAP 12 10/15/2017 Comp Metabolic Pkr885 GLUCOSE 86 mg/dL 10/15/2017 Comp Metabolic Njt713 Creat 0.6 mg/dL 10/15/2017 Comp Metabolic Jjb352 eGFR 179 ml/min/1.73m2 10/15/2017 Comp Metabolic Opa874 BUN 13 mg/dL 10/15/2017 Comp Metabolic Vii027 B/C Ratio 22.8 Ratio 10/15/2017 Comp Metabolic Hpj476 CALCIUM 9.6 mg/dL 10/15/2017 Comp Metabolic Rij894 ALK PHOS 158 U/L 10/15/2017 Comp Metabolic Ujs468 AST(SGOT) 15 U/L 10/15/2017 Comp Metabolic Lny926 ALT(SGPT) 29 U/L 10/15/2017 Comp Metabolic Gzm323 BILI T 0.2 mg/dL 10/15/2017 Comp Metabolic Sfn972 ALBUMIN 3.5 g/dL 10/15/2017 Comp Metabolic Nks321 TPRO 6.9 g/dL 10/15/2017 Comp Metabolic Gbi493 GLOB 3.4 g/dL 10/15/2017 Comp Metabolic Bcx423 A/G Ratio 1.1 Ratio 10/15/2017 Comp Metabolic Mfm362 Osmo 283 mOsmo 10/15/2017 Cbc With Differential [...] 87.2 fl 10/15/2017 Cbc With Differential Ord2 [place]% 8.3 % 10/15/2017 Cbc With Differential Ord2 MCH 28.4 pg 10/15/2017 Cbc With Differential Ord2 Eos% 4.3 % 10/15/2017 Cbc With Differential Ord2 MCHC 32.5 pg 10/15/2017 Cbc With Differential Ord2 PLT 281 K/ul 10/15/2017 Cbc With Differential Ord2 Baso% 0.4 % 10/15/2017 Cbc With Differential Ord2 Neut ABS# 3.02 K/ul 10/15/2017 Cbc With Differential Ord2 RDW 13.8 % 10/15/2017 Cbc With Differential Ord2 Lymph ABS# 1.78 K/ul 10/15/2017 Cbc With Differential Ord2 [place] ABS# 0.5 K/ul 10/15/2017 Cbc With Differential Ord2 Eos ABS# 0.2 K/ul 10/15/2017 Cbc With Differential Ord2 Baso ABS# 0.0 K/ul 10/15/2017 Tsh Ord6 TSH (3rd IS) 2.24 uIU/mL 10/15/2017 Renal Zlt956 NA 144 mEq/L 09/17/2017 Renal Mbo902 K 3.6 mEq/L 09/17/2017 Renal Fse901 CL 104 mEq/L 09/17/2017 Renal Qwg514 CO2 28.0 mEq/L 09/17/2017 Renal Wgs487 ANION GAP 16 09/17/2017 Renal Red279 Osmo 289 mOsmo 09/17/2017 Renal Zkp888 GLUCOSE 115 mg/dL 09/17/2017 Renal Pvm748 BUN 15 mg/dL 09/17/2017 Renal Bbe967 Creat 0.9 mg/dL 09/17/2017 Renal Kfd327 eGFR 100 ml/min/1.73m2 09/17/2017 Renal Frn930 B/C Ratio 16.0 Ratio 09/17/2017 Renal Ocj565 CALCIUM 10.4 mg/dL 09/17/2017 Renal Uxk802 PHOS 3.9 mg/dL 09/17/2017 Renal Rjx887 ALBUMIN 4.3 g/dL 09/17/2017 Magnesium Ord90 Mag 1.6 mg/dL 09/17/2017 Cbc With Differential Ord2 WBC 8.22 K/ul 09/17/2017 Cbc With Differential Ord2 RBC 4.86 M/ul 09/17/2017 Cbc With Differential Ord2 HGB 13.9 g/dl 09/17/2017 Cbc With Differential Ord2 HCT 42.9 % 09/17/2017 Cbc With Differential Ord2 Neut% 63.0 % 09/17/2017 Cbc With Differential Ord2 MCV 88.3 fl 09/17/2017 Cbc With Differential Ord2 Lymph% 22.5 % 09/17/2017 Cbc With Differential Ord2 MCH 28.6 pg 09/17/2017 Cbc With Differential Ord2 [place]% 9.9 % 09/17/2017 Cbc With Differential Ord2 [...] 1.85 K/ul 09/17/2017 Cbc With Differential Ord2 [place] ABS# 0.8 K/ul 09/17/2017 Cbc With Differential Ord2 Eos ABS# 0.4 K/ul 09/17/2017 Cbc With Differential Ord2 Baso ABS# 0.0 K/ul 09/17/2017 Comp Metabolic Aiv102 NA 138 mEq/L 02/04/2017 Comp Metabolic Fmo533 K 4.5 mEq/L 02/04/2017 Comp Metabolic Cos827 CL 98 mEq/L 02/04/2017 Comp Metabolic Vsi070 CO2 30.0 mEq/L 02/04/2017 Comp Metabolic Bxg080 ANION GAP 15 02/04/2017 Comp Metabolic Vna708 GLUCOSE 99 mg/dL 02/04/2017 Comp Metabolic Hwj528 Creat 0.6 mg/dL 02/04/2017 Comp Metabolic Drr121 eGFR 183 ml/min/1.73m2 02/04/2017 Comp Metabolic Nth572 BUN 11 mg/dL 02/04/2017 Comp Metabolic Iyj829 B/C Ratio 19.6 Ratio 02/04/2017 Comp Metabolic Pwd146 CALCIUM 9.5 mg/dL 02/04/2017 Comp Metabolic Jor752 ALK PHOS 59 U/L 02/04/2017 Comp Metabolic Lct835 AST(SGOT) 14 U/L 02/04/2017 Comp Metabolic Ncl009 ALT(SGPT) 15 U/L 02/04/2017 Comp Metabolic Cop004 BILI T 0.3 mg/dL 02/04/2017 Comp Metabolic Xdz781 ALBUMIN 4.0 g/dL 02/04/2017 Comp Metabolic Lwk223 TPRO 7.0 g/dL 02/04/2017 Comp Metabolic Tql730 GLOB 3.0 g/dL 02/04/2017 Comp Metabolic Ogr242 A/G Ratio 1.4 Ratio 02/04/2017 Comp Metabolic Oii117 Osmo 275 mOsmo 02/04/2017 Review of Systems System Result Effective Dates Constitutional No recent illness 2018 Constitutional No chills 05/31/2018 Constitutional No diaphoresis 05/31/2018 Constitutional No fever 05/31/2018 Eyes No eye erythema 05/31/2018 Ears/Nose/Throat/Neck No nasal discharge 05/31/2018 Cardiovascular No chest pain/pressure Respiratory No cough 05/31/2018 Gastrointestinal No abdominal pain 2018 Neurologic No alteration of consciousness 05/31/2018 Neurologic No mental status change 2018 Ears/Nose/Throat/Neck cerumen 05/31/2018 Ears/Nose/Throat/Neck otalgia 05/31/2018 Constitutional recent illness 05/23/2018 Constitutional No chills 05/23/2018 Constitutional No diaphoresis 05/23/2018 Constitutional No fever 05/23/2018 Eyes No eye erythema 05/23/2018 Ears/Nose/Throat/Neck No nasal allergies 05/23/2018 Ears/Nose/Throat/Neck No nasal discharge 05/23/2018 Cardiovascular No chest pain/pressure 11/2018 Cardiovascular No dyspnea 05/23/2018 Respiratory No chest congestion 2018 Respiratory No cough 05/23/2018 Respiratory No dyspnea 05/23/2018 Gastrointestinal abdominal pain 2018 Gastrointestinal No constipation 2018 Gastrointestinal No diarrhea 05/23/2018 Gastrointestinal No nausea 05/23/2018 Gastrointestinal No vomiting 05/23/2018 Musculoskeletal back pain 05/23/2018 Neurologic No alteration of consciousness 05/23/2018 Neurologic headache 05/23/2018 Neurologic No mental status change 2018 Psychiatric No anxiety 05/23/2018 Psychiatric depression 05/23/2018 Constitutional recent illness 12/07/2017 Constitutional No chills [...] Result Effective Dates Notes Full Exam - ENT Constitutional general appearance Overall: well nourished 05/31/2018 None Full Exam - ENT Constitutional general appearance Overall: well developed 05/31/2018 None Full Exam - ENT Constitutional general appearance Overall: in no acute distress 05/31/2018 None Full Exam - ENT Ears/Nose/Throat otoscopic exam Overall: tympanic membranes normal 05/31/2018 None Full Exam - ENT Ears/Nose/Throat otoscopic exam Left external auditory canal: tender 05/31/2018 noted after removal of cerumen Full Exam - ENT Ears/Nose/Throat otoscopic exam Left external auditory canal: erythematous 05/31/2018 None Full Exam - ENT Ears/Nose/Throat otoscopic exam Left external auditory canal: complete cerumen impaction 05/31/2018 None Full Exam - ENT Ears/Nose/Throat lips/ teeth/gingiva Overall: benign lips 05/31/2018 None Full Exam - ENT Ears/Nose/Throat oropharynx Overall: oral mucosa clear 05/31/2018 None Full Exam - ENT Neurologic mood and affect Overall: normal affect 05/31/2018 None Full Exam - ENT Neurologic mood and affect Overall: normal mood 05/31/2018 None Full Exam - ENT Respiratory inspection Overall: normal rate None Full Exam - ENT Respiratory inspection Overall: no retractions 05/31/2018 None Full Exam - General 1994 Constitutional general appearance Overall: well developed 05/23/2018 None Full Exam - General 1994 Constitutional general appearance Overall: in no acute distress 05/23/2018 None Full Exam - General 1995 Constitutional general appearance Overall: well nourished 05/23/2018 None Full Exam - General 1994 Eyes conjunctiva /eyelids Overall: conjunctiva clear 05/23/2018 None Full Exam - General 1994 Eyes conjunctiva /eyelids Overall: eyelids normal 05/23/2018 None Full Exam - General 1995 Ears/Nose/Throat lips/teeth/gingiva Overall: benign lips 05/23/2018 None Full Exam - General 1995 Ears/Nose/Throat oral cavity/pharynx/larynx Overall: oral mucosa clear 05/23/2018 None Full Exam - General 1994 Respiratory auscultation Overall: breath sounds clear bilaterally 05/23/2018 None Full Exam - General 1994 Respiratory respiratory effort/rhythm Overall: no retractions 05/23/2018 None Full Exam - General 1994 Respiratory respiratory effort/rhythm Overall: normal rate 05/23/2018 None Full Exam - General 1994 Cardiovascular auscultation of heart Overall: regular rate 05/23/2018 None Full Exam - General 1994 Cardiovascular auscultation of heart Overall: normal heart sounds 05/23/2018 None Full Exam - General 1994 Abdomen abdominal exam Overall: normal bowel sounds 05/23/2018 None Full Exam - General 1994 Neurologic cranial nerves Overall: crainial nerves 2 - 12 grossly intact 05/23/2018 None Full Exam - General 1994 Psychiatric orientation/consciousness Overall: oriented to person, place and time 05/23/2018 None Full Exam - General 1994 Psychiatric mood and affect Overall: normal mood and affect 05/23/2018 None Full Exam - General 1994 Psychiatric appearance Overall: well-groomed, good eye contact 05/23/2018 None Full Exam - General 1994 Eyes conjunctiva /eyelids Overall: cornea clear 05/23/2018 None Full Exam - General 1994 Musculoskeletal head and neck Head: deformity of skull 05/23/2018 scars Full Exam - General 1994 Constitutional general [...] No Procedures data Vital Signs Date Vital 05/31/2018 Height: Weight: 05/23/2018 Blood Pressure 1: 134/78 Code : 8480-6 Heart Rate 1: 97 bpm Height: SpO2: 98% Temperature: 37.1 (C) / 98.7 (F) Weight: 268 lbs 12/07/2017 Blood Pressure 1: 112/84 Code : [...] Symptom Name Status Result Effective Date Notes Location on the right 05/31/2018 None Quality acute 2018 None Onset and Resolution gradual in onset 05/31/2018 None Pertinent Findings Denies fever 05/31/2018 None _ infection 2018 None Quality acute 2018 None Onset of Symptom 2 weeks ago 05/23/2018 None Onset and Resolution sudden in onset 05/23/2018 None hypertension Quality chronic 12/07/2017 None hypertension Onset [...] data Encounters Encounter Performer Location Codes Date EST. PATIENT, LEVEL III Diagnosis: Impacted cerumen, bilateral[ICD10: H61.23] Diagnosis: Other otitis externa, right ear[ICD10: H60.8X1] Carrie Nuñez MD, [facility] CPT-4: 14648 05/31/2018 [id number] EST. PATIENT, LEVEL III Diagnosis: Essential (primary) hypertension[ICD10: I10] Diagnosis: Major depressive disorder, single episode, moderate[ICD10: F32.1] Diagnosis: Encounter for follow-up examination after completed treatment for conditions other than malignant neoplasm[ICD10: Z09] Diagnosis: Weakness[ICD10: R53.1] Carrie Nuñez MD, [facility] CPT-4: 40195 05/23/2018 [id number] EST. PATIENT, LEVEL IV Diagnosis: Essential (primary) hypertension[ICD10: I10] Diagnosis: Major depressive disorder, single episode, moderate[ICD10: F32.1] Diagnosis: Muscle spasm of back[ICD10: M62.830] Diagnosis: Other headache syndrome[ICD10: G44.89] Anila Nuñez MD, [facility] CPT-4: 99620 12/07/2017 00545 71394 EST. PATIENT, LEVEL IV Diagnosis: Essential (primary) hypertension[ICD10: I10] Diagnosis: Major depressive disorder, single episode, moderate[ICD10: F32.1] Diagnosis: Pressure ulcer of contiguous site of back, buttock and hip, stage 3[ ICD10: L89.43] Anila Nuñez MD, [facility] CPT-4: 99603 11/04/2017 07860) 97002 EST. 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 PATIENT, LEVEL IV Diagnosis: Umbilical hernia without obstruction or gangrene[ICD10: K42.9] Carrie Nuñez MD, [facility] CPT-4: 73305 03/23/2017 94926 EST. PATIENT, LEVEL IV Diagnosis: Other insomnia[ICD10: G47.09] Diagnosis: Essential (primary) hypertension[ICD10: I10] Diagnosis: Pain in thoracic spine[ICD10: M54.6] Diagnosis: Cervicalgia[ICD10: M54.2] Carrie Nuñez MD, [facility] CPT-4: 09332 03/04/2017 23286 EST. PATIENT, LEVEL III Diagnosis: Cervicalgia[ICD10: M54.2] Diagnosis: Pain in thoracic spine[ICD10: M54.6] Diagnosis: Muscle spasm of back[ICD10: M62.830] Carrie Nuñez MD, [facility] CPT-4: 97208 02/10/2017 83905 EST. PATIENT, LEVEL IV Diagnosis: Essential (primary) hypertension[ICD10: I10] Diagnosis: Lumbar spina bifida without hydrocephalus[ICD10: Q05.7] Carrie Nuñez MD, [facility] CPT-4: 39416 12/16/2016 23197 EST. PATIENT, LEVEL IV Diagnosis: Essential (primary) hypertension[ICD10: I10] Diagnosis: Major depressive disorder, single episode, mild[ICD10: F32.0] Carrie Nuñez MD , [facility] CPT-4: 48843 09/30/2016 ([id number]) 29802 EST. PATIENT, LEVEL III Diagnosis: Bicipital tendinitis, left shoulder[ICD10: M75.22] Diagnosis: Pain in right wrist[ICD10: M25.531] Diagnosis: Pain in left wrist[ICD10: M25.532] Angi Nuñez MD, [facility] CPT-4: 65747 07/23/2016 56038 EST. PATIENT, LEVEL III Diagnosis: Pain in left shoulder[ICD10: M25.512] Diagnosis: Pain in left wrist[ICD10: M25.532] [facility] CPT-4: 58346 06/17/2016 56278 EST. 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 The patient tolerated the procedure without incident and had improvement in hearing. The wax was removed by the practitioner due to the wax being more complicated to remove, and staff was needed to assist the removal of the wax by holding the ear, and keeping patient stabilized during the removal process. Otitis Externa - pt given RX for antibiotic drops for the use in pt's affected ear. Pt to call if symptoms are not improving or if symptoms worsen acutely. 05/31/2018 Appointment: Carrie Raymond WPtel: [address] [place], [place] [id number] (15 min) Moderate 05/31/2018 Patient Education: Patient Medication Summary Completed 05/31/2018 Visit Plan: Hypertension - well controlled - continue with current medications, continue with no added salt diet. Pt has been encouraged to exercise daily. The pt has been advised to call the office if there are any acute concerns about change in blood pressure readings at home. Chronic Depression and anxiety - the pt has symptoms of chronic anxiety and depression that have been fairly well controlled since the last office visit. The pt has expected periods of exacerbation with abatement of the symptoms with change in situational exposure. No change in current medications. Hospital follow up - This was a follow up appointment from the patient's hospitalization during which time Dr. Nuñez formulated the assessment and plan for the follow up on this patient's medical condition. weakness - will order PT to help with strengthening and transfers 05/23/2018 Appointment: Carrie Raymond WPtel: [facility] [place] [facility] [place] [facility] (30 min) Complex 05/23/2018 Patient Education: Patient Medication Summary Completed 05/23/2018 Patient Education: Depression Completed 05/23/2018 Visit Plan: Back pain - Headache - [...] monitor symptoms. 12/07/2017 Appointment: Anila Nuñez WPtel: [facility] [place] [facility] [place] [facility] (15 min) Moderate 12/07/2017 Patient Education: Patient Medication Summary Completed 12/07/2017 [facility] Initiated 11/09/2017 Care Plan: Referral Order SNOMED-CT : [id number] Pending 11/05/2017 Visit Plan: Hypertension - well [...] too complicated to have surgery at [facility] - we will therefore refer to [facility] Referral to Dr. Murdock for removal of Peg tube. 11/04/2017 Appointment: Anila Nuñez WPtel: [facility] [place] [facility] [place] [facility] [place] (15 min) Moderate 11/04/2017 Patient Education: Patient Medication Summary Completed 11/04/2017 Appointment: Anila Nuñez WPtel: [facility] [place] [facility] [place] [facility] (15 min) Moderate 10/28/2017 Visit Plan: [...] Dr. Hargrove. 10/14/2017 Appointment: Anila Nuñez WPtel: [facility] [place] [facility] [place] [facility] (30 min) Complex 10/14/2017 Patient Education: Patient Medication Summary Completed 10/14/2017 Appointment: Anila Nuñez WPtel: [address] [place], [place] [phone] (30 min) Complex 09/21/2017 [phone] [facility] Referral Completed 03/29/2017 Care Plan: Referral Order SNOMED-CT : [id number] Pending 03/24/2017 Visit Plan: Umbilical hernia - reducible, mildly tender to palpation - no skin or color changes - warm and dry to the touch - will refer to surgeon for evaluation - pt is to notify clinic or go to the ER for any acute changes or concerns. 03/23/2017 Appointment: Carrie Raymond WPtel: [facility] [place] [facility] [place] [facility] (30 min) Complex 03/23/2017 Patient Education: Patient [...] concerns. 03/04/2017 Appointment: [phone] (30 min) Complex 03/04/2017 Patient Education: Patient [...] this patient. 09/30/2016 Appointment: Carrie Raymond WPtel: [address] [facility] (15 min) Moderate 09/30/2016 Patient Education: Patient [...] of plan. 07/23/2016 Appointment: Angi Rodriguez WPtel: [address] [phone] [place] (15 min) Moderate 07/23/2016 Patient Education: [...] in pain. 05/06/2016 Appointment: Carrie Raymond WPtel: [address] [facility] [place] (15 min) Moderate 05/06/2016 Patient Education: Patient [...] of spina bifida with hydrocephalus-sees neurologist in [place]-due for appt Uuwycjklnktt-rizujwe-teyeprue miralax 04/07/2016 Appointment: [phone] New Patient 04/07/2016 Patient Education: Patient Medication Summary Completed 04/07/2016 [facility] Requested Referral: Jorje Harden HPtel:[phone] [facility] Referral Appointment Confirmed Instructions Comment PT TO [...] will refer to Dr. Hargrove. OT AT [facility] [place] TO EVALUATE AND TREAT LYMPHEDEMA DUODERM COCCYX [...] of spina bifida with hydrocephalus-sees neurologist in [place]-due for appt Bbxhsvznisko-gwtbfod-wckmhant miralax . Cerumen Impaction - The impacted cerumen was removed with the use of the ear currette. The patient tolerated the procedure without incident and had improvement in hearing. The wax was removed by the practitioner due to the wax being more complicated to remove, and staff was needed to assist the removal of the wax by holding the ear, and keeping patient stabilized during the removal process. Otitis Externa - pt given RX for antibiotic drops for the use in pt's affected ear. Pt to call if symptoms are not improving or if symptoms worsen acutely. . Hypertension - uncontrolled - the patient's [...] too complicated to have surgery at [facility] - we will therefore refer to [facility] Referral to Dr. Murdock for removal [...] pain is worsening or does not improve. . Hypertension - well controlled - continue with current medications, continue with no added salt diet. Pt has been encouraged to exercise daily. The pt has been advised to call the office if there are any acute concerns about change in blood pressure readings at home. Chronic Depression and anxiety - the pt has symptoms of chronic anxiety and depression that have been fairly well controlled since the last office visit. The pt has expected periods of exacerbation with abatement of the symptoms with change in situational exposure. No change in current medications. Hospital follow up - This was a follow up appointment from the patient's hospitalization during which time Dr. Nuñez formulated the assessment and plan for the follow up on this patient's medical condition. weakness - will order PT to help with strengthening and transfers
--- OUTSIDE RECORDS SUMMARY | 2018-06-27 16:02 | XMS REPORT | CCD ---
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 Name Role Phone PP Unavailable CCM Unavailable Summary Purpose Interface Exchange Insurance Providers Payer name Policy type / Coverage type Covered democrat ID Effective Begin Date Effective End Date WPS Medicare Part B Medicare Part B [id number] Unknown Unknown [employer] - Medicare Part B [id number] Unknown Unknown Family history Father Diagnosis Age At Onset Hyperlipidemia Unknown Hypertension Unknown Social History Social History Element Codes Description Effective Dates Living arrangements Unknown [facility] 11/05/2017 Marital status Unknown Alondra 04/07/2016 Number of children Unknown 0 04/07/2016 Employment Unknown Currently unemployed 04/07/[address]: 492955196 Never smoker 04/07/[address]: 784662284 Never drinks alcohol 04/07/2016 Allergies, Adverse Reactions, [...] Start Date Stop Date Status Fill Instructions ciprofloxacin 0.3 % eye drops RxNorm: 139935 1 Drop(s) otic (ear) BID 05/31/2018 06/06/2018 Inactive hydrocodone 5 mg-acetaminophen 325 mg tablet RxNorm: 526079 1-2 Tablet(s) PO Q6 as needed 03/08/2018 07/05/2018 Active hydrocodone 5 mg-acetaminophen 325 mg tablet RxNorm: 850783 1-2 Tablet(s) PO Q6 as needed 12/30/2017 03/07/2018 Inactive Cymbalta 30 mg capsule,delayed release RxNorm: 502575 3 Capsule(s) PO daily 12/07/2017 01/31/2018 Inactive febuxostat 40 mg tablet RxNorm: 112307 1 Tablet(s) PO daily 05/11/2018 Inactive levetiracetam 1,000 mg tablet RxNorm: 680243 1 Tablet(s) PO BID 10/14/2017 05/11/2018 Inactive levetiracetam 500 mg tablet RxNorm: 673004 3 Tablet(s) PO BID 10/14/2017 11/12/2017 Inactive aspirin 325 mg tablet RxNorm: 976439 1 Tablet(s) PO daily 201705/11/2018 Inactive metoprolol tartrate 25 mg tablet RxNorm: 048324 1/2 Tablet(s) PO BID 10/14/2017 11/12/2017 Inactive Protonix 40 mg tablet,delayed release RxNorm: 870188 1 Tablet(s) PO daily 10/14/2017 05/11/2018 Inactive hydrocodone 5 mg-acetaminophen 325 mg tablet RxNorm: 648558 1 Tablet(s) PO QID as needed 10/14/2017 12/29/2017 Inactive Reglan 10 mg tablet RxNorm: 027483 1 Tablet(s) PO QID 201711/12/2017 Inactive fluoxetine 20 mg tablet RxNorm: 950421 1 Tablet(s) PO daily 10/14/2017 Inactive Cymbalta 30 mg capsule,delayed release RxNorm: 407453 1 Capsule(s) PO daily 10/14/2017 12/06/2017 Inactive Zofran 4 mg tablet RxNorm: 979664 1 Tablet(s) PO TID as needed 09/20/2017 09/29/2017 Inactive hydrocodone 5 mg-acetaminophen 325 mg tablet RxNorm: 817340 1-2 Tablet(s) PO Q6 as needed 09/20/2017 10/12/2017 Inactive naproxen 500 mg tablet RxNorm: 303158 TAKE ONE TABLET BY MOUTH TWICE DAILY NEEDED 03/29/2017 09/24/2017 Inactive Generic For:*NAPROSYN 500 MG TABLET 2016 2:53:48 PM Prozac 10 mg capsule RxNorm: 330464 1 Capsule(s) PO daily 03/2910/13/2017 Inactive hydrochlorothiazide 12.5 mg capsule RxNorm: 015549 1 Capsule(s) PO daily 03/12/2017 04/10/2017 Inactive hydrochlorothiazide 12.5 mg capsule RxNorm: 504476 1 Capsule(s) PO daily 03/12/2017 03/11/2017 Inactive lisinopril 40 mg tablet RxNorm: 772459 1 Tablet(s) PO daily 03/07/2017 Inactive lisinopril 40 mg tablet RxNorm: 729030 1 Tablet(s) PO daily 04/06/2017 Inactive melatonin 3 mg tablet RxNorm: 115322 1 Tablet(s) PO QHS as needed insomnia 03/05/2017 No Stop Date Active Voltaren 1 % topical gel RxNorm: 150462 1 Application TOP QID as needed et at HS 02/23/2017 05/23/2017 Inactive Voltaren 1 % topical gel RxNorm: 555819 1 Application TOP QID as needed et at HS 02/03/2017 02/22/2017 Inactive lisinopril 20 mg tablet RxNorm: 867346 TAKE ONE TABLET BY MOUTH EVERY DAY 01/14/2017 03/05/2017 Inactive Generic For:*PRINIVIL 20 MG TABLET 01/13/2017 2:26: 55 PM lisinopril 20 mg tablet RxNorm: 506012 1 Tablet(s) PO daily 06/201601/13/2017 Inactive lisinopril 10 mg tablet RxNorm: 941713 1 Tablet(s) PO TAKE ONE TABLET BY MOUTH ONE TIME DAILY 11/27/2016 12/14/2016 Inactive Generic For:PRINIVIL 5 MG TABLET pt is out of medication 11/18/2016 3:16:14 PM lisinopril 5 mg tablet RxNorm: 017094 TAKE ONE TABLET BY MOUTH ONE TIME DAILY 11/24/2016 11/26/2016 Inactive Generic For:PRINIVIL 5 MG TABLET pt is out of medication 11/18/2016 3:16:14 PM Prozac 10 mg capsule RxNorm: 418094 1 Capsule(s) PO daily 10/2303/21/2017 Inactive Voltaren 1 % topical gel RxNorm: 969939 1 Application TOP QID as needed et at HS 10/16/2016 02/02/2017 Inactive Prozac 10 mg capsule RxNorm: 799875 1 Capsule(s) PO daily 10/0110/22/2016 Inactive Voltaren 1 % topical gel RxNorm: 046905 1 Application TOP QID as needed et at HS 09/23/2016 10/15/2016 Inactive Voltaren 1 % topical gel RxNorm: 678097 1 Application TOP QID as needed et at HS 09/23/2016 09/22/2016 Inactive Voltaren 1 % topical gel RxNorm: 977374 1 Application TOP QID as needed et at HS 09/23/2016 09/22/2016 Inactive Flonase Allergy Relief 50 mcg/actuation nasal spray, suspension RxNorm: 1646755 1 [place] NASAL each nostril BID as needed 09/11/2016 02/07/2017 Inactive Flonase Allergy Relief 50 mcg/actuation nasal spray, suspension RxNorm: 4082453 1 [place] NASAL each nostril BID as needed 09/11/2016 09/10/2016 Inactive lisinopril 5 mg tablet RxNorm: 582195 TAKE ONE TABLET BY MOUTH ONE TIME DAILY -LOT : for 90 days 08/25/2016 11/22/2016 Inactive naproxen 500 mg tablet RxNorm: 293342 1 Tablet(s) PO BID as needed 06/17/2016 03/28/2017 Inactive Zithromax Z-Robel 250 mg tablet RxNorm: 309817 1 Tablet(s) PO UD 06/05/2016 07/22/2016 Inactive z pack as directed- patient at [facility] Miralax 17 gram/dose oral powder RxNorm: 499595 1 PO BID 2016 No Stop Date Active Bactrim DS 800 mg-160 mg tablet RxNorm: 194658 1 Tablet(s) PO BID 05/06/2016 05/15/2016 Inactive Zithromax Z-Robel 250 mg tablet RxNorm: 314353 1 Tablet(s) PO daily 04/08/2016 04/12/2016 Inactive nystatin 100,000 unit/gram topical cream RxNorm: 720686 1 Gram(s) TOP BID No Start Date Active Tylenol Extra Strength 500 mg tablet RxNorm: 761555 Tablet(s) PO as needed No Start Date Active lactobacillus acidophilus (bulk) RxNorm: 6205 miscellaneous No Start Date Active Zyrtec 10 mg tablet RxNorm: 2801749 1 Tablet(s) PO daily No Start Date Active Pataday 0.2 % eye drops RxNorm: 7815065 1 Drop(s) ophthalmic (eye) daily No Start Date Active Ginkoba M-E oral RxNorm: 287496 oral No Start Date Active Vitamin C 500 mg tablet RxNorm: 522510 1 Tablet(s) PO daily No Start Date Active Calmoseptine 0.44 %-20.6 % topical ointment RxNorm: 529722 1 Application TOP QID as needed No Start Date Active Miralax 17 gram/dose oral powder RxNorm: 423457 1 PO daily No Start Date 05/28/2016 Inactive Flonase 50 mcg/actuation nasal spray,suspension RxNorm: 3289371 1 [place] NASAL BID No Start Date 09/11/2016 Inactive omeprazole 20 mg capsule,delayed release RxNorm: 931626 1 Capsule(s) PO daily No Start Date 10/13/2017 Inactive lisinopril 5 mg tablet RxNorm: 530398 1 Tablet(s) PO daily No Start Date 08/24/2016 Inactive Zofran 4 mg tablet RxNorm: 880992 1 Tablet(s) PO TID as needed No Start Date 09/19/2017 Inactive Zithromax Z-Robel oral RxNorm: oral No Start Date 04/07/2016 Inactive Zithromax Z-Robel 250 mg tablet RxNorm: 451645 1 Tablet(s) PO UD No Start Date 06/04/2016 Inactive z pack as directed- patient at [facility] Medication Administered No Medication Administered data [...] Ord15 CALCIUM 9.5 mg/dL 06/14/2018 Culture Urine [id number] URINE CULTURE SEE NOTES 06/13/2018 Urine Culture [...] Urinalysis Ord28 U-Yeast NEGATIVE 06/09/2018 Culture Urine [id number] URINE CULTURE SEE NOTES 05/27/2018 Urine Culture [...] Ord15 CALCIUM 9.4 mg/dL 12/27/2017 Comp Metabolic Mrq702 NA 142 mEq/L 10/15/2017 Comp Metabolic Wca013 K 4.2 mEq/L 10/15/2017 Comp Metabolic Cnq928 CL 107 mEq/L 10/15/2017 Comp Metabolic Ifs811 CO2 27.0 mEq/L 10/15/2017 Comp Metabolic Zfu162 ANION GAP 12 10/15/2017 Comp Metabolic Lkl560 GLUCOSE 86 mg/dL 10/15/2017 Comp Metabolic Yhm118 Creat 0.6 mg/dL 10/15/2017 Comp Metabolic Fey704 eGFR 179 ml/min/1.73m2 10/15/2017 Comp Metabolic Las821 BUN 13 mg/dL 10/15/2017 Comp Metabolic Jrl808 B/C Ratio 22.8 Ratio 10/15/2017 Comp Metabolic Xko282 CALCIUM 9.6 mg/dL 10/15/2017 Comp Metabolic Wph016 ALK PHOS 158 U/L 10/15/2017 Comp Metabolic Sed070 AST(SGOT) 15 U/L 10/15/2017 Comp Metabolic Rhv066 ALT(SGPT) 29 U/L 10/15/2017 Comp Metabolic Lub549 BILI T 0.2 mg/dL 10/15/2017 Comp Metabolic Xqw662 ALBUMIN 3.5 g/dL 10/15/2017 Comp Metabolic Rue190 TPRO 6.9 g/dL 10/15/2017 Comp Metabolic Fbc853 GLOB 3.4 g/dL 10/15/2017 Comp Metabolic Tqd030 A/G Ratio 1.1 Ratio 10/15/2017 Comp Metabolic Qfb871 Osmo 283 mOsmo 10/15/2017 Cbc With Differential [...] 87.2 fl 10/15/2017 Cbc With Differential Ord2 [place]% 8.3 % 10/15/2017 Cbc With Differential Ord2 [...] 1.78 K/ul 10/15/2017 Cbc With Differential Ord2 [place] ABS# 0.5 K/ul 10/15/2017 Cbc With Differential Ord2 Eos ABS# 0.2 K/ul 10/15/2017 Cbc With Differential Ord2 Baso ABS# 0.0 K/ul 10/15/2017 Tsh Ord6 TSH (3rd IS) 2.24 uIU/mL 10/15/2017 Renal Dgz517 NA 144 mEq/L 09/17/2017 Renal Cmu464 K 3.6 mEq/L 09/17/2017 Renal Lqp589 CL 104 mEq/L 09/17/2017 Renal Xwg674 CO2 28.0 mEq/L 09/17/2017 Renal Dbn554 ANION GAP 16 09/17/2017 Renal Cqy434 Osmo 289 mOsmo 09/17/2017 Renal Zke459 GLUCOSE 115 mg/dL 09/17/2017 Renal Tdp759 BUN 15 mg/dL 09/17/2017 Renal Clo741 Creat 0.9 mg/dL 09/17/2017 Renal Bga849 eGFR 100 ml/min/1.73m2 09/17/2017 Renal Ujy994 B/C Ratio 16.0 Ratio 09/17/2017 Renal Suw159 CALCIUM 10.4 mg/dL 09/17/2017 Renal Lhd826 PHOS 3.9 mg/dL 09/17/2017 Renal Pid036 ALBUMIN 4.3 g/dL 09/17/2017 Magnesium Ord90 Mag [...] 28.6 pg 09/17/2017 Cbc With Differential Ord2 [place]% 9.9 % 09/17/2017 Cbc With Differential Ord2 [...] 1.85 K/ul 09/17/2017 Cbc With Differential Ord2 [place] ABS# 0.8 K/ul 09/17/2017 Cbc With Differential Ord2 Eos ABS# 0.4 K/ul 09/17/2017 Cbc With Differential Ord2 Baso ABS# 0.0 K/ul 09/17/2017 Comp Metabolic Umg862 NA 138 mEq/L 02/04/2017 Comp Metabolic Drr696 K 4.5 mEq/L 02/04/2017 Comp Metabolic Hkq790 CL 98 mEq/L 02/04/2017 Comp Metabolic Ivg161 CO2 30.0 mEq/L 02/04/2017 Comp Metabolic Zck898 ANION GAP 15 02/04/2017 Comp Metabolic Ubp789 GLUCOSE 99 mg/dL 02/04/2017 Comp Metabolic Hnj870 Creat 0.6 mg/dL 02/04/2017 Comp Metabolic Ljt456 eGFR 183 ml/min/1.73m2 02/04/2017 Comp Metabolic Frc016 BUN 11 mg/dL 02/04/2017 Comp Metabolic Bpd515 B/C Ratio 19.6 Ratio 02/04/2017 Comp Metabolic Ssh097 CALCIUM 9.5 mg/dL 02/04/2017 Comp Metabolic Uqy853 ALK PHOS 59 U/L 02/04/2017 Comp Metabolic Mtt730 AST(SGOT) 14 U/L 02/04/2017 Comp Metabolic Sxm908 ALT(SGPT) 15 U/L 02/04/2017 Comp Metabolic Zpx680 BILI T 0.3 mg/dL 02/04/2017 Comp Metabolic Vui304 ALBUMIN 4.0 g/dL 02/04/2017 Comp Metabolic Dwf106 TPRO 7.0 g/dL 02/04/2017 Comp Metabolic Ufj469 GLOB 3.0 g/dL 02/04/2017 Comp Metabolic Pxh886 A/G Ratio 1.4 Ratio 02/04/2017 Comp Metabolic Dqg438 Osmo 275 mOsmo 02/04/2017 Review of Systems [...] distress 05/23/2018 None Full Exam - General 1994 Constitutional general appearance Overall: well nourished 05/23/2018 None Full Exam - General 1994 Eyes conjunctiva /eyelids Overall: conjunctiva clear 05/23/2018 None Full Exam - General 1995 Eyes conjunctiva /eyelids Overall: eyelids normal 05/23/2018 None Full Exam - General 1994 Ears/Nose/Throat lips/teeth/gingiva Overall: benign lips 05/23/2018 None [...] H60.8X1] Carrie Nuñez MD, [facility] CPT-4: 92262 05/31/2018 16113 EST. PATIENT, LEVEL III Diagnosis: Essential (primary) hypertension[ICD10: I10] Diagnosis: Major depressive disorder, single episode, moderate[ICD10: F32.1] Diagnosis: Encounter for follow-up examination after completed treatment for conditions other than malignant neoplasm[ICD10: Z09] Diagnosis: Weakness[ICD10: R53.1] Carrie Nuñez MD, [facility] CPT-4: 40900 05/23/2018 [id number] 26790 EST. PATIENT, LEVEL IV Diagnosis: Essential (primary) hypertension[ICD10: I10] Diagnosis: Major depressive disorder, single episode, moderate[ICD10: F32.1] Diagnosis: Muscle spasm of back[ICD10: M62.830] Diagnosis: Other headache syndrome[ICD10: G44.89] Anila [facility], [facility] CPT-4: 53658 12/07/2017 [id number]) 26290 EST. PATIENT, LEVEL IV Diagnosis: Essential (primary) hypertension[ICD10: I10] Diagnosis: Major depressive disorder, single episode, moderate[ICD10: F32.1] Diagnosis: Pressure ulcer of contiguous site of back, buttock and hip, stage 3[ ICD10: L89.43] [facility], [facility] CPT-4: 81154 11/04/[phone]) 55413 EST. 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 PATIENT, LEVEL IV Diagnosis: Umbilical hernia without obstruction or gangrene[ICD10: K42.9] Carrie Nuñez MD, [facility] CPT-4: 20409 03/23/2017 05472 EST. PATIENT, LEVEL IV Diagnosis: Other insomnia[ICD10: G47.09] Diagnosis: Essential (primary) hypertension[ICD10: I10] Diagnosis: Pain in thoracic spine[ICD10: M54.6] Diagnosis: Cervicalgia[ICD10: M54.2] Carrie Nuñez MD, [facility] CPT-4: 77172 03/04/2017 03431 EST. PATIENT, LEVEL III Diagnosis: Cervicalgia[ICD10: M54.2] Diagnosis: Pain in thoracic spine[ICD10: M54.6] Diagnosis: Muscle spasm of back[ICD10: M62.830] Carrie Nuñez MD, [facility] CPT-4: 84928 02/10/2017 31348 EST. PATIENT, LEVEL IV Diagnosis: Essential (primary) hypertension[ICD10: I10] Diagnosis: Lumbar spina bifida without hydrocephalus[ICD10: Q05.7] Carrie Nuñez MD, [facility] CPT-4: 32169 12/16/2016 09639 EST. PATIENT, LEVEL IV Diagnosis: Essential (primary) hypertension[ICD10: I10] Diagnosis: Major depressive disorder, single episode, mild[ICD10: F32.0] Carrie Nuñez MD , [facility] CPT-4: 69626 09/30/2016 ([id number]) 31383 EST. PATIENT, LEVEL III Diagnosis: Bicipital tendinitis, left shoulder[ICD10: M75.22] Diagnosis: Pain in right wrist[ICD10: M25.531] Diagnosis: Pain in left wrist[ICD10: M25.532] Angi Nuñez MD, [facility] CPT-4: 41686 07/23/2016 75061 EST. PATIENT, LEVEL III Diagnosis: Pain in left shoulder[ICD10: M25.512] Diagnosis: Pain in left wrist[ICD10: M25.532] Carrie Nuñez MD, [facility] CPT-4: 46662 06/17/2016 47153 EST. 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 05/31/2018 Appointment: Carrie Raymond WPtel: [facility] (15 min) Moderate 05/31/2018 Patient Education: Patient [...] and transfers 05/23/2018 Appointment: Carrie Raymond WPtel: [facility] [facility] (30 min) Complex 05/23/2018 Patient Education: Patient [...] monitor symptoms. 12/07/2017 Appointment: Anila Nuñez WPtel: [facility]5 [facility] (15 min) Moderate 12/07/2017 Patient Education: Patient Medication Summary Completed 12/07/2017 Referral: [facility] Referral Initiated 11/09/2017 Care Plan: Referral Order SNOMED-CT : [id number] Pending 11/05/2017 Visit Plan: Hypertension - well [...] complicated to have surgery at [facility] [place] - we will therefore refer to [facility] Referral to Dr. Murdock for removal of Peg tube. 11/04/2017 Appointment: Anila Nuñez WPtel: [facility] (15 min) Moderate 11/04/2017 Patient Education: Patient Medication Summary Completed 11/04/2017 Appointment: Anila Nuñez WPtel: [facility]5 [facility] (15 min) Moderate 10/28/2017 Visit Plan: [...] Dr. Hargrove. 10/14/2017 Appointment: Anila Nuñez WPtel: [address] [place], [place] [address] (30 min) Complex 10/14/2017 Patient Education: Patient Medication Summary Completed 10/14/2017 Appointment: Anila Nuñez WPtel: [facility]7 [facility] (30 min) Complex 09/21/2017 Referral: Jorje Harden [facility]:+[phone] [facility] [facility] Referral Completed 03/29/2017 Care Plan: Referral Order SNOMED-CT : [id number] Pending 03/24/2017 Visit Plan: Umbilical hernia - reducible, mildly tender to palpation - no skin or color changes - warm and dry to the touch - will refer to surgeon for evaluation - pt is to notify clinic or go to the ER for any acute changes or concerns. 03/23/2017 Appointment: Carrie Raymond WPtel: [facility]1 [facility] (30 min) Complex 03/23/2017 Patient Education: [...] or concerns. 03/04/2017 Appointment: Carrie Raymond WPtel: [facility] ([facility] min) [facility] 03/04/2017 Patient Education: Patient Medication Summary Completed [...] this patient. 09/30/2016 Appointment: Carrie Raymond WPtel: [facility]5 [facility] (15 min) Moderate 09/30/2016 Patient Education: [...] of plan. 07/23/2016 Appointment: Angi Rodriguez WPtel: [phone] [place] (15 min) Moderate 07/23/2016 Patient [...] in pain. 05/06/2016 Appointment: Carrie Raymond WPtel: [facility]5 [facility] [place] (15 min) Moderate 05/06/2016 Patient [...] of spina bifida with hydrocephalus-sees neurologist in [place]-due for appt Xorxespsbwvq-vzlysam-rgznqbbh miralax 04/07/2016 App[facility]ment: [facility] New Patient 04/07/2016 Patient Education: Patient Medication Summary Completed 04/07/2016 Referral: [facility] Referral Appointment Requested Referral: Jorje Harden HPtel:[phone] [facility] [place] Referral Appointment Confirmed Instructions Comment PT TO [...] refer to Dr. Hargrove. OT AT [facility] [place] TO EVALUATE AND TREAT LYMPHEDEMA DUODERM COCCYX [...] of spina bifida with hydrocephalus-sees neurologist in [place]-due for appt [id number] miralax . Cerumen Impaction - The impacted [...] complicated to have surgery at [facility] [place] - we will therefore refer to [facility] Referral to Dr. Murdock for removal [...]
--- OUTSIDE RECORDS SUMMARY | 2018-06-27 16:04 | XMS REPORT | CCD ---
Author Author Angi Rodriguez Organization [facility] Address [address] [place] [address] Phone Care Team Providers Care Prevention Specialist Name Role Phone PP Unavailable CCM Unavailable Summary Purpose Interface Exchange Insurance Providers Payer name Policy type / Coverage type Covered libertarian ID Effective Begin Date Effective End Date WPS Medicare Part B Medicare Part B [id number] Unknown Unknown [employer] - Medicare Part B [id number] Unknown Unknown Family history Father Diagnosis Age At Onset Hyperlipidemia Unknown Hypertension Unknown Social History Social History Element Codes Description Effective Dates Living arrangements Unknown [facility] 11/05/2017 Marital status Unknown Alondra 04/07/2016 Number of children Unknown 0 04/07/2016 Employment Unknown Currently unemployed 04/07/[address]: 780111449 Never smoker 04/07/[address]: 427349059 Never drinks alcohol 04/07/2016 Allergies, Adverse Reactions, [...] Instructions ciprofloxacin 0.3 % eye drops RxNorm: 799344 1 Drop(s) otic (ear) BID 05/31/2018 06/06/2018 Inactive hydrocodone 5 mg-acetaminophen 325 mg tablet RxNorm: 312125 1-2 Tablet(s) PO Q6 as needed 03/08/2018 07/05/2018 Active hydrocodone 5 mg-acetaminophen 325 mg tablet RxNorm: 016137 1-2 Tablet(s) PO Q6 as needed 12/30/2017 03/07/2018 Inactive Cymbalta 30 mg capsule,delayed release RxNorm: 062752 3 Capsule(s) PO daily 12/07/2017 01/31/2018 Inactive febuxostat 40 mg tablet RxNorm: 682736 1 Tablet(s) PO daily 05/11/2018 Inactive levetiracetam 1,000 mg tablet RxNorm: 773948 1 Tablet(s) PO BID 10/14/2017 05/11/2018 Inactive levetiracetam 500 mg tablet RxNorm: 932919 3 Tablet(s) PO BID 10/14/2017 11/12/2017 Inactive aspirin 325 mg tablet RxNorm: 771719 1 Tablet(s) PO daily 201705/11/2018 Inactive metoprolol tartrate 25 mg tablet RxNorm: 036504 1/2 Tablet(s) PO BID 10/14/2017 11/12/2017 Inactive Protonix 40 mg tablet,delayed release RxNorm: 484659 1 Tablet(s) PO daily 10/14/2017 05/11/2018 Inactive hydrocodone 5 mg-acetaminophen 325 mg tablet RxNorm: 864013 1 Tablet(s) PO QID as needed 10/14/2017 12/29/2017 Inactive Reglan 10 mg tablet RxNorm: 457822 1 Tablet(s) PO QID 201711/12/2017 Inactive fluoxetine 20 mg tablet RxNorm: 875390 1 Tablet(s) PO daily 10/14/2017 Inactive Cymbalta 30 mg capsule,delayed release RxNorm: 652918 1 Capsule(s) PO daily 10/14/2017 12/06/2017 Inactive Zofran 4 mg tablet RxNorm: 713955 1 Tablet(s) PO TID as needed 09/20/2017 09/29/2017 Inactive hydrocodone 5 mg-acetaminophen 325 mg tablet RxNorm: 830129 1-2 Tablet(s) PO Q6 as needed 09/20/2017 10/12/2017 Inactive naproxen 500 mg tablet RxNorm: 182669 TAKE ONE TABLET BY MOUTH TWICE DAILY NEEDED 03/29/2017 09/24/2017 Inactive Generic For:*NAPROSYN 500 MG TABLET 2016 2:53:48 PM Prozac 10 mg capsule RxNorm: 152150 1 Capsule(s) PO daily 03/2910/13/2017 Inactive hydrochlorothiazide 12.5 mg capsule RxNorm: 257488 1 Capsule(s) PO daily 03/12/2017 04/10/2017 Inactive hydrochlorothiazide 12.5 mg capsule RxNorm: 690414 1 Capsule(s) PO daily 03/12/2017 03/11/2017 Inactive lisinopril 40 mg tablet RxNorm: 847569 1 Tablet(s) PO daily 03/07/2017 Inactive lisinopril 40 mg tablet RxNorm: 991923 1 Tablet(s) PO daily 04/06/2017 Inactive melatonin 3 mg tablet RxNorm: 165166 1 Tablet(s) PO QHS as needed insomnia 03/05/2017 No Stop Date Active Voltaren 1 % topical gel RxNorm: 990270 1 Application TOP QID as needed et at HS 02/23/2017 05/23/2017 Inactive Voltaren 1 % topical gel RxNorm: 396494 1 Application TOP QID as needed et at HS 02/03/2017 02/22/2017 Inactive lisinopril 20 mg tablet RxNorm: 754210 TAKE ONE TABLET BY MOUTH EVERY DAY 01/14/2017 03/05/2017 Inactive Generic For:*PRINIVIL 20 MG TABLET 01/13/2017 2:26: 55 PM lisinopril 20 mg tablet RxNorm: 568506 1 Tablet(s) PO daily 06/201601/13/2017 Inactive lisinopril 10 mg tablet RxNorm: 517517 1 Tablet(s) PO TAKE ONE TABLET BY MOUTH ONE TIME DAILY 11/27/2016 12/14/2016 Inactive Generic For:PRINIVIL 5 MG TABLET pt is out of medication 11/18/2016 3:16:14 PM lisinopril 5 mg tablet RxNorm: 945985 TAKE ONE TABLET BY MOUTH ONE TIME DAILY 11/24/2016 11/26/2016 Inactive Generic For:PRINIVIL 5 MG TABLET pt is out of medication 11/18/2016 3:16:14 PM Prozac 10 mg capsule RxNorm: 795147 1 Capsule(s) PO daily 10/2303/21/2017 Inactive Voltaren 1 % topical gel RxNorm: 442150 1 Application TOP QID as needed et at HS 10/16/2016 02/02/2017 Inactive Prozac 10 mg capsule RxNorm: 558590 1 Capsule(s) PO daily 10/0110/22/2016 Inactive Voltaren 1 % topical gel RxNorm: 770532 1 Application TOP QID as needed et at HS 09/23/2016 10/15/2016 Inactive Voltaren 1 % topical gel RxNorm: 735283 1 Application TOP QID as needed et at HS 09/23/2016 09/22/2016 Inactive Voltaren 1 % topical gel RxNorm: 182988 1 Application TOP QID as needed et at HS 09/23/2016 09/22/2016 Inactive Flonase Allergy Relief 50 mcg/actuation nasal spray, suspension RxNorm: 3104739 1 [place] NASAL each nostril BID as needed 09/11/2016 02/07/2017 Inactive Flonase Allergy Relief 50 mcg/actuation nasal spray, suspension RxNorm: 9685370 1 [place] NASAL each nostril BID as needed 09/11/2016 09/10/2016 Inactive lisinopril 5 mg tablet RxNorm: 291175 TAKE ONE TABLET BY MOUTH ONE TIME DAILY -LOT : for 90 days 08/25/2016 11/22/2016 Inactive naproxen 500 mg tablet RxNorm: 224082 1 Tablet(s) PO BID as needed 06/17/2016 03/28/2017 Inactive Zithromax Z-Robel 250 mg tablet RxNorm: 277050 1 Tablet(s) PO UD 06/05/2016 07/22/2016 Inactive z pack as directed- patient at [facility] Miralax 17 gram/dose oral powder RxNorm: 518143 1 PO BID 2016 No Stop Date Active Bactrim DS 800 mg-160 mg tablet RxNorm: 179200 1 Tablet(s) PO BID 05/06/2016 05/15/2016 Inactive Zithromax Z-Robel 250 mg tablet RxNorm: 041319 1 Tablet(s) PO daily 04/08/2016 04/12/2016 Inactive nystatin 100,000 unit/gram topical cream RxNorm: 678724 1 Gram(s) TOP BID No Start Date Active Tylenol Extra Strength 500 mg tablet RxNorm: 518547 Tablet(s) PO as needed No Start Date Active lactobacillus acidophilus (bulk) RxNorm: 6205 miscellaneous No Start Date Active Zyrtec 10 mg tablet RxNorm: 2550008 1 Tablet(s) PO daily No Start Date Active Pataday 0.2 % eye drops RxNorm: 0169508 1 Drop(s) ophthalmic (eye) daily No Start Date Active Ginkoba M-E oral RxNorm: 616392 oral No Start Date Active Vitamin C 500 mg tablet RxNorm: 340828 1 Tablet(s) PO daily No Start Date Active Calmoseptine 0.44 %-20.6 % topical ointment RxNorm: 080122 1 Application TOP QID as needed No Start Date Active Miralax 17 gram/dose oral powder RxNorm: 258809 1 PO daily No Start Date 05/28/2016 Inactive Flonase 50 mcg/actuation nasal spray,suspension RxNorm: 6458033 1 [place] NASAL BID No Start Date 09/11/2016 Inactive omeprazole 20 mg capsule,delayed release RxNorm: 710709 1 Capsule(s) PO daily No Start Date 10/13/2017 Inactive lisinopril 5 mg tablet RxNorm: 868991 1 Tablet(s) PO daily No Start Date 08/24/2016 Inactive Zofran 4 mg tablet RxNorm: 714895 1 Tablet(s) PO TID as needed No Start Date 09/19/2017 Inactive Zithromax Z-Robel oral RxNorm: oral No Start Date 04/07/2016 Inactive Zithromax Z-Robel 250 mg tablet RxNorm: 792570 1 Tablet(s) PO UD No Start Date 06/04/2016 Inactive z pack as directed- patient at [facility] Medication Administered No Medication Administered data [...] Observation Code Item Item Code Result Date Urinalysis Ord28 U-Color Yellow 06/09/2018 Urinalysis Ord28 [...] Urinalysis Ord28 U-Yeast NEGATIVE 06/09/2018 Culture Urine [id number] URINE CULTURE SEE NOTES 05/27/2018 Urine Culture [...] Ord15 CALCIUM 9.4 mg/dL 12/27/2017 Comp Metabolic Cub007 NA 142 mEq/L 10/15/2017 Comp Metabolic Qyk310 K 4.2 mEq/L 10/15/2017 Comp Metabolic Fnl119 CL 107 mEq/L 10/15/2017 Comp Metabolic Qgd168 CO2 27.0 mEq/L 10/15/2017 Comp Metabolic Kwm503 ANION GAP 12 10/15/2017 Comp Metabolic Jtb308 GLUCOSE 86 mg/dL 10/15/2017 Comp Metabolic Uxc051 Creat 0.6 mg/dL 10/15/2017 Comp Metabolic Evq579 eGFR 179 ml/min/1.73m2 10/15/2017 Comp Metabolic Mon834 BUN 13 mg/dL 10/15/2017 Comp Metabolic Udp198 B/C Ratio 22.8 Ratio 10/15/2017 Comp Metabolic She149 CALCIUM 9.6 mg/dL 10/15/2017 Comp Metabolic Fgq025 ALK PHOS 158 U/L 10/15/2017 Comp Metabolic Kwc139 AST(SGOT) 15 U/L 10/15/2017 Comp Metabolic Lfj265 ALT(SGPT) 29 U/L 10/15/2017 Comp Metabolic Gjt303 BILI T 0.2 mg/dL 10/15/2017 Comp Metabolic Xdp430 ALBUMIN 3.5 g/dL 10/15/2017 Comp Metabolic Qcm961 TPRO 6.9 g/dL 10/15/2017 Comp Metabolic Duj028 GLOB 3.4 g/dL 10/15/2017 Comp Metabolic Imd281 A/G Ratio 1.1 Ratio 10/15/2017 Comp Metabolic Eik894 Osmo 283 mOsmo 10/15/2017 Cbc With Differential [...] 87.2 fl 10/15/2017 Cbc With Differential Ord2 [place]% 8.3 % 10/15/2017 Cbc With Differential Ord2 [...] 1.78 K/ul 10/15/2017 Cbc With Differential Ord2 [place] ABS# 0.5 K/ul 10/15/2017 Cbc With Differential Ord2 Eos ABS# 0.2 K/ul 10/15/2017 Cbc With Differential Ord2 Baso ABS# 0.0 K/ul 10/15/2017 Tsh Ord6 TSH (3rd IS) 2.24 uIU/mL 10/15/2017 Renal Tkn618 NA 144 mEq/L 09/17/2017 Renal Oaa533 K 3.6 mEq/L 09/17/2017 Renal Xtz954 CL 104 mEq/L 09/17/2017 Renal Kum532 CO2 28.0 mEq/L 09/17/2017 Renal Zvn567 ANION GAP 16 09/17/2017 Renal Dsw230 Osmo 289 mOsmo 09/17/2017 Renal Hhc538 GLUCOSE 115 mg/dL 09/17/2017 Renal Tye448 BUN 15 mg/dL 09/17/2017 Renal Cqt885 Creat 0.9 mg/dL 09/17/2017 Renal Wxw548 eGFR 100 ml/min/1.73m2 09/17/2017 Renal Vmq202 B/C Ratio 16.0 Ratio 09/17/2017 Renal Tur582 CALCIUM 10.4 mg/dL 09/17/2017 Renal Toz100 PHOS 3.9 mg/dL 09/17/2017 Renal Jqx768 ALBUMIN 4.3 g/dL 09/17/2017 Magnesium Ord90 Mag [...] 28.6 pg 09/17/2017 Cbc With Differential Ord2 [place]% 9.9 % 09/17/2017 Cbc With Differential Ord2 [...] 1.85 K/ul 09/17/2017 Cbc With Differential Ord2 [place] ABS# 0.8 K/ul 09/17/2017 Cbc With Differential Ord2 Eos ABS# 0.4 K/ul 09/17/2017 Cbc With Differential Ord2 Baso ABS# 0.0 K/ul 09/17/2017 Comp Metabolic Ujb480 NA 138 mEq/L 02/04/2017 Comp Metabolic Oab504 K 4.5 mEq/L 02/04/2017 Comp Metabolic Qou263 CL 98 mEq/L 02/04/2017 Comp Metabolic Ucg219 CO2 30.0 mEq/L 02/04/2017 Comp Metabolic Pjo989 ANION GAP 15 02/04/2017 Comp Metabolic Csk133 GLUCOSE 99 mg/dL 02/04/2017 Comp Metabolic Toh328 Creat 0.6 mg/dL 02/04/2017 Comp Metabolic Mvu813 eGFR 183 ml/min/1.73m2 02/04/2017 Comp Metabolic Oph617 BUN 11 mg/dL 02/04/2017 Comp Metabolic Mfk971 B/C Ratio 19.6 Ratio 02/04/2017 Comp Metabolic Vnn659 CALCIUM 9.5 mg/dL 02/04/2017 Comp Metabolic Xua101 ALK PHOS 59 U/L 02/04/2017 Comp Metabolic Nzr691 AST(SGOT) 14 U/L 02/04/2017 Comp Metabolic Yvo310 ALT(SGPT) 15 U/L 02/04/2017 Comp Metabolic Boe561 BILI T 0.3 mg/dL 02/04/2017 Comp Metabolic Hoh938 ALBUMIN 4.0 g/dL 02/04/2017 Comp Metabolic Ohk602 TPRO 7.0 g/dL 02/04/2017 Comp Metabolic Slo080 GLOB 3.0 g/dL 02/04/2017 Comp Metabolic Nvu962 A/G Ratio 1.4 Ratio 02/04/2017 Comp Metabolic Otw441 Osmo 275 mOsmo 02/04/2017 Review of Systems [...] lips 05/23/2018 None Full Exam - General 1994 [...] accomodation 12/16/2016 None Full Exam - General 1995 Ears/Nose/Throat otoscopic exam Overall: external auditory canals [...] externa, right ear[ICD10: H60.8X1] [facility] CPT-4: 11986 05/31/2018 18799 EST. PATIENT, LEVEL III Diagnosis: Essential (primary) hypertension[ICD10: I10] Diagnosis: Major depressive disorder, single episode, moderate[ICD10: F32.1] Diagnosis: Encounter for follow-up examination after completed treatment for conditions other than malignant neoplasm[ICD10: Z09] Diagnosis: Weakness[ICD10: R53.1] [facility] CPT-4: 51774 05/23/2018 ([id number]) 15112 EST. PATIENT, LEVEL IV Diagnosis: Essential (primary) hypertension[ICD10: I10] Diagnosis: Major depressive disorder, single episode, moderate[ICD10: F32.1] Diagnosis: Muscle spasm of back[ICD10: M62.830] Diagnosis: Other headache syndrome[ICD10: G44.89] [facility], [facility] CPT-4: 44032 12/07/2017 ([id number]) 83073 EST. PATIENT, LEVEL IV Diagnosis: Essential (primary) hypertension[ICD10: I10] Diagnosis: Major depressive disorder, single episode, moderate[ICD10: F32.1] Diagnosis: Pressure ulcer of contiguous site of back, buttock and hip, stage 3[ ICD10: L89.43] [facility], [facility] CPT-4: 40687 11/04/2017 ([id number]) 23790 EST. 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 PATIENT, LEVEL IV Diagnosis: Umbilical hernia without obstruction or gangrene[ICD10: K42.9] [facility], [facility] CPT-4: 03297 03/23/2017 90001 EST. PATIENT, LEVEL IV Diagnosis: Other insomnia[ICD10: G47.09] Diagnosis: Essential (primary) hypertension[ICD10: I10] Diagnosis: Pain in thoracic spine[ICD10: M54.6] Diagnosis: Cervicalgia[ICD10: M54.2] [facility], [facility] CPT-4: 53411 03/04/2017 07733 EST. PATIENT, LEVEL III Diagnosis: Cervicalgia[ICD10: M54.2] Diagnosis: Pain in thoracic spine[ICD10: M54.6] Diagnosis: Muscle spasm of back[ICD10: M62.830] [facility], [facility] CPT-4: 30799 02/10/2017 75236 EST. PATIENT, LEVEL IV Diagnosis: Essential (primary) hypertension[ICD10: I10] Diagnosis: Lumbar spina bifida without hydrocephalus[ICD10: Q05.7] [facility], [facility] CPT-4: 90063 12/16/2016 18471 EST. PATIENT, LEVEL IV Diagnosis: Essential (primary) hypertension[ICD10: I10] Diagnosis: Major depressive disorder, single episode, mild[ICD10: F32.0] [facility] , [facility] CPT-4: 07770 09/30/2016 ([id number]) 95616 EST. PATIENT, LEVEL III Diagnosis: Bicipital tendinitis, left shoulder[ICD10: M75.22] Diagnosis: Pain in right wrist[ICD10: M25.531] Diagnosis: Pain in left wrist[ICD10: M25.532] [facility] MD, [facility] CPT-4: 43375 07/23/2016 43054 EST. PATIENT, LEVEL III Diagnosis: Pain in left shoulder[ICD10: M25.512] Diagnosis: Pain in left wrist[ICD10: M25.532] [facility], [facility] CPT-4: 11961 06/17/2016 58128 EST. 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 05/31/2018 [facility] [phone] [facility] ([facility] min) Moderate 05/31/2018 Patient Education: Patient [...] and transfers 05/23/2018 Appointment: Carrie Raymond WPtel: [facility] (30 min) Complex 05/23/2018 Patient Education: [...] monitor symptoms. 12/07/2017 Appointment: Anila Nuñez WPtel: [phone] [facility] (15 min) Moderate 12/07/2017 Patient Education: Patient Medication Summary Completed 12/07/2017 Referral: [facility] Referral Initiated 11/09/2017 Care Plan: Referral Order SNOMED-CT : [id number] Pending 11/05/2017 Visit Plan: Hypertension - well [...] Carol - we will therefore refer to [place] [facility] Referral to Dr. Murdock for removal of Peg tube. 11/04/2017 Appointment: Anila Nuñez WPtel: [phone] [facility] [place] (15 min) Moderate 11/04/2017 Patient Education: Patient Medication Summary Completed 11/04/2017 Appointment: Anila Nuñez WPtel: [phone] [facility] [place] (15 min) Moderate 10/28/2017 Visit Plan: Hypertension [...] Hargrove. 10/14/2017 Appointment: Anila Nuñez WPtel: [phone] [facility] [place] (30 min) Complex 10/14/2017 Patient Education: Patient Medication Summary Completed 10/14/2017 Appointment: Anila Nuñez WPtel: [phone] [facility] [place] (30 min) Complex 09/21/2017 Referral: Jorje Harden HPtel:[phone] [facility] Referral Completed 03/29/2017 Care Plan: Referral Order SNOMED-CT : 814326317 Pending 03/24/2017 Visit Plan: Umbilical hernia - reducible, mildly tender to palpation - no skin or color changes - warm and dry to the touch - will refer to surgeon for evaluation - pt is to notify clinic or go to the ER for any acute changes or concerns. 03/23/2017 [facility]: [facility] [phone] [facility] ([facility] min) Complex 03/23/2017 Patient Education: Patient [...] concerns. 03/04/2017 Appointment: [facility] [phone] [facility] (30 min) Complex 03/04/2017 Patient Education: Patient [...] patient. 09/30/2016 App[facility]ment: [facility] [phone] [facility] (15 min) Moderate 09/30/2016 Patient Education: Patient [...] verbalized understanding of plan. 07/23/2016 Appointment: [facility]origuez [facility] [phone] [facility] [place] (15 min) Moderate 07/23/2016 Patient Education: [...] in pain. 05/06/2016 Appointment: Carrie Raymond WPtel: [address] [place] [address] (15 min) Moderate 05/06/2016 Patient Education: Patient [...] of spina bifida with hydrocephalus-sees neurologist in [place]-due for appt Yfhuuxeasnzg-plozvrh-xxybeedh miralax 04/07/2016 Appointment: Angi Rodriguez WPtel: [address] [place] [address] [place] [address] New Patient 04/07/2016 Patient Education: Patient Medication Summary Completed 04/07/2016 Referral: [facility] Referral Appointment Requested Referral: Jorje Harden HPtel:[phone] [place] [address] Referral Appointment Confirmed Instructions Comment PT TO [...] will refer to Dr. Hargrove. OT AT [facility] TO EVALUATE AND TREAT LYMPHEDEMA DUODERM COCCYX [...] of spina bifida with hydrocephalus-sees neurologist in [place]-due for appt Lgmnejoxtdiv-zyroagk-ihdhuciw miralax . Cerumen Impaction - The impacted [...] Department - we will therefore refer to [place] [facility] Referral to Dr. Murdock for removal [...]
--- OUTSIDE RECORDS SUMMARY | 2018-06-27 16:05 | XMS REPORT | CCD ---
Author Author Angi Rodriguez Organization [facility] Address [address] [place] [address] Phone Care Team Providers Care Special Education Professor Name Role Phone PP Unavailable CCM Unavailable Summary Purpose Interface Exchange Insurance Providers Payer name Policy type / Coverage type Covered democrat ID Effective Begin Date Effective End Date WPS Medicare Part B Medicare Part B [id number] Unknown Unknown [employer] - Medicare Part B [id number] Unknown Unknown Family history Father Diagnosis Age At Onset Hyperlipidemia Unknown Hypertension Unknown Social History Social History Element Codes Description Effective Dates Living arrangements Unknown [facility] 11/05/2017 Marital status Unknown Alondra 04/07/2016 Number of children Unknown 0 04/07/2016 Employment Unknown Currently unemployed 04/07/[address]: 028235869 Never smoker 04/07/[address]: 548220223 Never drinks alcohol 04/07/2016 Allergies, Adverse Reactions, [...] Instructions ciprofloxacin 0.3 % eye drops RxNorm: 468062 1 Drop(s) otic (ear) BID 05/31/2018 06/06/2018 Active hydrocodone 5 mg-acetaminophen 325 mg tablet RxNorm: 888197 1-2 Tablet(s) PO Q6 as needed 03/08/2018 07/05/2018 Active hydrocodone 5 mg-acetaminophen 325 mg tablet RxNorm: 586859 1-2 Tablet(s) PO Q6 as needed 12/30/2017 03/07/2018 Inactive Cymbalta 30 mg capsule,delayed release RxNorm: 478955 3 Capsule(s) PO daily 12/07/2017 01/31/2018 Inactive febuxostat 40 mg tablet RxNorm: 768453 1 Tablet(s) PO daily 05/11/2018 Inactive levetiracetam 1,000 mg tablet RxNorm: 996050 1 Tablet(s) PO BID 10/14/2017 05/11/2018 Inactive levetiracetam 500 mg tablet RxNorm: 381405 3 Tablet(s) PO BID 10/14/2017 11/12/2017 Inactive aspirin 325 mg tablet RxNorm: 740700 1 Tablet(s) PO daily 201705/11/2018 Inactive metoprolol tartrate 25 mg tablet RxNorm: 350303 1/2 Tablet(s) PO BID 10/14/2017 11/12/2017 Inactive Protonix 40 mg tablet,delayed release RxNorm: 639556 1 Tablet(s) PO daily 10/14/2017 05/11/2018 Inactive hydrocodone 5 mg-acetaminophen 325 mg tablet RxNorm: 644788 1 Tablet(s) PO QID as needed 10/14/2017 12/29/2017 Inactive Reglan 10 mg tablet RxNorm: 118492 1 Tablet(s) PO QID 201711/12/2017 Inactive fluoxetine 20 mg tablet RxNorm: 567454 1 Tablet(s) PO daily 10/14/2017 Inactive Cymbalta 30 mg capsule,delayed release RxNorm: 557829 1 Capsule(s) PO daily 10/14/2017 12/06/2017 Inactive Zofran 4 mg tablet RxNorm: 898766 1 Tablet(s) PO TID as needed 09/20/2017 09/29/2017 Inactive hydrocodone 5 mg-acetaminophen 325 mg tablet RxNorm: 933782 1-2 Tablet(s) PO Q6 as needed 09/20/2017 10/12/2017 Inactive naproxen 500 mg tablet RxNorm: 957776 TAKE ONE TABLET BY MOUTH TWICE DAILY NEEDED 03/29/2017 09/24/2017 Inactive Generic For:*NAPROSYN 500 MG TABLET 2016 2:53:48 PM Prozac 10 mg capsule RxNorm: 925680 1 Capsule(s) PO daily 03/2910/13/2017 Inactive hydrochlorothiazide 12.5 mg capsule RxNorm: 671718 1 Capsule(s) PO daily 03/12/2017 04/10/2017 Inactive hydrochlorothiazide 12.5 mg capsule RxNorm: 017610 1 Capsule(s) PO daily 03/12/2017 03/11/2017 Inactive lisinopril 40 mg tablet RxNorm: 681715 1 Tablet(s) PO daily 03/07/2017 Inactive lisinopril 40 mg tablet RxNorm: 394471 1 Tablet(s) PO daily 04/06/2017 Inactive melatonin 3 mg tablet RxNorm: 818702 1 Tablet(s) PO QHS as needed insomnia 03/05/2017 No Stop Date Active Voltaren 1 % topical gel RxNorm: 199346 1 Application TOP QID as needed et at HS 02/23/2017 05/23/2017 Inactive Voltaren 1 % topical gel RxNorm: 137499 1 Application TOP QID as needed et at HS 02/03/2017 02/22/2017 Inactive lisinopril 20 mg tablet RxNorm: 008616 TAKE ONE TABLET BY MOUTH EVERY DAY 01/14/2017 03/05/2017 Inactive Generic For:*PRINIVIL 20 MG TABLET 01/13/2017 2:26: 55 PM lisinopril 20 mg tablet RxNorm: 993336 1 Tablet(s) PO daily 06/201601/13/2017 Inactive lisinopril 10 mg tablet RxNorm: 537731 1 Tablet(s) PO TAKE ONE TABLET BY MOUTH ONE TIME DAILY 11/27/2016 12/14/2016 Inactive Generic For:PRINIVIL 5 MG TABLET pt is out of medication 11/18/2016 3:16:14 PM lisinopril 5 mg tablet RxNorm: 972060 TAKE ONE TABLET BY MOUTH ONE TIME DAILY 11/24/2016 11/26/2016 Inactive Generic For:PRINIVIL 5 MG TABLET pt is out of medication 11/18/2016 3:16:14 PM Prozac 10 mg capsule RxNorm: 806308 1 Capsule(s) PO daily 10/2303/21/2017 Inactive Voltaren 1 % topical gel RxNorm: 489528 1 Application TOP QID as needed et at HS 10/16/2016 02/02/2017 Inactive Prozac 10 mg capsule RxNorm: 754659 1 Capsule(s) PO daily 10/0110/22/2016 Inactive Voltaren 1 % topical gel RxNorm: 267466 1 Application TOP QID as needed et at HS 09/23/2016 10/15/2016 Inactive Voltaren 1 % topical gel RxNorm: 655186 1 Application TOP QID as needed et at HS 09/23/2016 09/22/2016 Inactive Voltaren 1 % topical gel RxNorm: 247364 1 Application TOP QID as needed et at HS 09/23/2016 09/22/2016 Inactive Flonase Allergy Relief 50 mcg/actuation nasal spray, suspension RxNorm: 6923606 1 [place] NASAL each nostril BID as needed 09/11/2016 02/07/2017 Inactive Flonase Allergy Relief 50 mcg/actuation nasal spray, suspension RxNorm: 9191487 1 [place] NASAL each nostril BID as needed 09/11/2016 09/10/2016 Inactive lisinopril 5 mg tablet RxNorm: 616923 TAKE ONE TABLET BY MOUTH ONE TIME DAILY -LOT : for 90 days 08/25/2016 11/22/2016 Inactive naproxen 500 mg tablet RxNorm: 503203 1 Tablet(s) PO BID as needed 06/17/2016 03/28/2017 Inactive Zithromax Z-Robel 250 mg tablet RxNorm: 572600 1 Tablet(s) PO UD 06/05/2016 07/22/2016 Inactive z pack as directed- patient at [facility] Miralax 17 gram/dose oral powder RxNorm: 035463 1 PO BID 2016 No Stop Date Active Bactrim DS 800 mg-160 mg tablet RxNorm: 341435 1 Tablet(s) PO BID 05/06/2016 05/15/2016 Inactive Zithromax Z-Robel 250 mg tablet RxNorm: 803070 1 Tablet(s) PO daily 04/08/2016 04/12/2016 Inactive nystatin 100,000 unit/gram topical cream RxNorm: 894436 1 Gram(s) TOP BID No Start Date Active Tylenol Extra Strength 500 mg tablet RxNorm: 634602 Tablet(s) PO as needed No Start Date Active lactobacillus acidophilus (bulk) RxNorm: 6205 miscellaneous No Start Date Active Zyrtec 10 mg tablet RxNorm: 7349232 1 Tablet(s) PO daily No Start Date Active Pataday 0.2 % eye drops RxNorm: 8599285 1 Drop(s) ophthalmic (eye) daily No Start Date Active Ginkoba M-E oral RxNorm: 683421 oral No Start Date Active Vitamin C 500 mg tablet RxNorm: 969843 1 Tablet(s) PO daily No Start Date Active Calmoseptine 0.44 %-20.6 % topical ointment RxNorm: 703534 1 Application TOP QID as needed No Start Date Active Miralax 17 gram/dose oral powder RxNorm: 261879 1 PO daily No Start Date 05/28/2016 Inactive Flonase 50 mcg/actuation nasal spray,suspension RxNorm: 4388353 1 [place] NASAL BID No Start Date 09/11/2016 Inactive omeprazole 20 mg capsule,delayed release RxNorm: 756867 1 Capsule(s) PO daily No Start Date 10/13/2017 Inactive lisinopril 5 mg tablet RxNorm: 911677 1 Tablet(s) PO daily No Start Date 08/24/2016 Inactive Zofran 4 mg tablet RxNorm: 606320 1 Tablet(s) PO TID as needed No Start Date 09/19/2017 Inactive Zithromax Z-Robel oral RxNorm: oral No Start Date 04/07/2016 Inactive Zithromax Z-Robel 250 mg tablet RxNorm: 009539 1 Tablet(s) PO UD No Start Date 06/04/2016 Inactive z pack as directed- patient at [facility] Medication Administered No Medication Administered [...] Observation Code Item Item Code Result Date Culture Urine [id number] URINE CULTURE SEE NOTES 05/27/2018 Urine Culture [...] Ord15 CALCIUM 9.4 mg/dL 12/27/2017 Comp Metabolic Doz632 NA 142 mEq/L 10/15/2017 Comp Metabolic Geg619 K 4.2 mEq/L 10/15/2017 Comp Metabolic Bfv355 CL 107 mEq/L 10/15/2017 Comp Metabolic Zwr626 CO2 27.0 mEq/L 10/15/2017 Comp Metabolic Ykx347 ANION GAP 12 10/15/2017 Comp Metabolic Njd209 GLUCOSE 86 mg/dL 10/15/2017 Comp Metabolic Zxv564 Creat 0.6 mg/dL 10/15/2017 Comp Metabolic Xts193 eGFR 179 ml/min/1.73m2 10/15/2017 Comp Metabolic Uyz465 BUN 13 mg/dL 10/15/2017 Comp Metabolic Gzr555 B/C Ratio 22.8 Ratio 10/15/2017 Comp Metabolic Uza054 CALCIUM 9.6 mg/dL 10/15/2017 Comp Metabolic Dzu255 ALK PHOS 158 U/L 10/15/2017 Comp Metabolic Pks227 AST(SGOT) 15 U/L 10/15/2017 Comp Metabolic Lra881 ALT(SGPT) 29 U/L 10/15/2017 Comp Metabolic Itu433 BILI T 0.2 mg/dL 10/15/2017 Comp Metabolic Mmq469 ALBUMIN 3.5 g/dL 10/15/2017 Comp Metabolic Mgm153 TPRO 6.9 g/dL 10/15/2017 Comp Metabolic Epd075 GLOB 3.4 g/dL 10/15/2017 Comp Metabolic Mfg810 A/G Ratio 1.1 Ratio 10/15/2017 Comp Metabolic Nbc835 Osmo 283 mOsmo 10/15/2017 Cbc With Differential [...] 87.2 fl 10/15/2017 Cbc With Differential Ord2 [place]% 8.3 % 10/15/2017 Cbc With Differential Ord2 [...] 1.78 K/ul 10/15/2017 Cbc With Differential Ord2 [place] ABS# 0.5 K/ul 10/15/2017 Cbc With Differential Ord2 Eos ABS# 0.2 K/ul 10/15/2017 Cbc With Differential Ord2 Baso ABS# 0.0 K/ul 10/15/2017 Tsh Ord6 TSH (3rd IS) 2.24 uIU/mL 10/15/2017 Renal Hlu221 NA 144 mEq/L 09/17/2017 Renal Ofx742 K 3.6 mEq/L 09/17/2017 Renal Lyx883 CL 104 mEq/L 09/17/2017 Renal Msz320 CO2 28.0 mEq/L 09/17/2017 Renal Gkw858 ANION GAP 16 09/17/2017 Renal Eus157 Osmo 289 mOsmo 09/17/2017 Renal Mhg925 GLUCOSE 115 mg/dL 09/17/2017 Renal Rlu852 BUN 15 mg/dL 09/17/2017 Renal Bkh329 Creat 0.9 mg/dL 09/17/2017 Renal Gxn859 eGFR 100 ml/min/1.73m2 09/17/2017 Renal Sww632 B/C Ratio 16.0 Ratio 09/17/2017 Renal Pry866 CALCIUM 10.4 mg/dL 09/17/2017 Renal Lys786 PHOS 3.9 mg/dL 09/17/2017 Renal Wqz463 ALBUMIN 4.3 g/dL 09/17/2017 Magnesium Ord90 Mag [...] 28.6 pg 09/17/2017 Cbc With Differential Ord2 [place]% 9.9 % 09/17/2017 Cbc With Differential Ord2 [...] 1.85 K/ul 09/17/2017 Cbc With Differential Ord2 [place] ABS# 0.8 K/ul 09/17/2017 Cbc With Differential Ord2 Eos ABS# 0.4 K/ul 09/17/2017 Cbc With Differential Ord2 Baso ABS# 0.0 K/ul 09/17/2017 Comp Metabolic Job155 NA 138 mEq/L 02/04/2017 Comp Metabolic Slh751 K 4.5 mEq/L 02/04/2017 Comp Metabolic Kfr307 CL 98 mEq/L 02/04/2017 Comp Metabolic Qzh727 CO2 30.0 mEq/L 02/04/2017 Comp Metabolic Ymu320 ANION GAP 15 02/04/2017 Comp Metabolic Mkw112 GLUCOSE 99 mg/dL 02/04/2017 Comp Metabolic Glv475 Creat 0.6 mg/dL 02/04/2017 Comp Metabolic Pso090 eGFR 183 ml/min/1.73m2 02/04/2017 Comp Metabolic Hbq930 BUN 11 mg/dL 02/04/2017 Comp Metabolic Eeq666 B/C Ratio 19.6 Ratio 02/04/2017 Comp Metabolic Vuh010 CALCIUM 9.5 mg/dL 02/04/2017 Comp Metabolic Ggp991 ALK PHOS 59 U/L 02/04/2017 Comp Metabolic Luj248 AST(SGOT) 14 U/L 02/04/2017 Comp Metabolic Maa329 ALT(SGPT) 15 U/L 02/04/2017 Comp Metabolic Yut575 BILI T 0.3 mg/dL 02/04/2017 Comp Metabolic Ykq179 ALBUMIN 4.0 g/dL 02/04/2017 Comp Metabolic Slo646 TPRO 7.0 g/dL 02/04/2017 Comp Metabolic Zvh279 GLOB 3.0 g/dL 02/04/2017 Comp Metabolic Aca327 A/G Ratio 1.4 Ratio 02/04/2017 Comp Metabolic Jkw582 Osmo 275 mOsmo 02/04/2017 Review of Systems [...] bilaterally 05/23/2018 None Full Exam - General 1995 Respiratory respiratory effort/rhythm Overall: no retractions 05/23/2018 [...] affect 03/04/2017 None Full Exam - General 1995 Psychiatric [...] clear 04/07/2016 None Full Exam - General 1995 Eyes pupils and irises Overall: pupils equal, [...] data Encounters Encounter Performer Location Codes Date 24577 EST. PATIENT, LEVEL III Diagnosis: Impacted cerumen, bilateral[ICD10: H61.23] Diagnosis: Other otitis externa, right ear[ICD10: H60.8X1] Carrie Nuñez MD, [facility] CPT-4: 25792 05/31/2018 91568 EST. PATIENT, LEVEL III Diagnosis: Essential (primary) hypertension[ICD10: I10] Diagnosis: Major depressive disorder, single episode, moderate[ICD10: F32.1] Diagnosis: Encounter for follow-up examination after completed treatment for conditions other than malignant neoplasm[ICD10: Z09] Diagnosis: Weakness[ICD10: R53.1] Carrie Nuñez MD, [facility] CPT-4: 60719 05/23/2018 ([id number]) 00973 EST. PATIENT, LEVEL IV Diagnosis: Essential (primary) hypertension[ICD10: I10] Diagnosis: Major depressive disorder, single episode, moderate[ICD10: F32.1] Diagnosis: Muscle spasm of back[ICD10: M62.830] Diagnosis: Other headache syndrome[ICD10: G44.89] [facility], [facility] CPT-4: 47929 12/07/2017 ([id number]) 53398 EST. PATIENT, LEVEL IV Diagnosis: Essential (primary) hypertension[ICD10: I10] Diagnosis: Major depressive disorder, single episode, moderate[ICD10: F32.1] Diagnosis: Pressure ulcer of contiguous site of back, buttock and hip, stage 3[ ICD10: L89.43] [facility], [facility] CPT-4: 20250 11/04/2017 ([id number]) 03505 EST. 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 CPT- 4: 29161 10/14/2017 95293 EST. PATIENT, LEVEL IV Diagnosis: Umbilical hernia without obstruction or gangrene[ICD10: K42.9] Carrie Nuñez MD, [facility] CPT-4: 92178 03/23/2017 10221 EST. PATIENT, LEVEL IV Diagnosis: Other insomnia[ICD10: G47.09] Diagnosis: Essential (primary) hypertension[ICD10: I10] Diagnosis: Pain in thoracic spine[ICD10: M54.6] Diagnosis: Cervicalgia[ICD10: M54.2] Carrie Nuñez MD, [facility] CPT-4: 94538 03/04/2017 62172 EST. PATIENT, LEVEL III Diagnosis: Cervicalgia[ICD10: M54.2] Diagnosis: Pain in thoracic spine[ICD10: M54.6] Diagnosis: Muscle spasm of back[ICD10: M62.830] Carrie Nuñez MD, [facility] CPT-4: 95459 02/10/2017 53584 EST. PATIENT, LEVEL IV Diagnosis: Essential (primary) hypertension[ICD10: I10] Diagnosis: Lumbar spina bifida without hydrocephalus[ICD10: Q05.7] Carrie Nuñez MD, [facility] CPT-4: 47266 12/16/2016 98612 EST. PATIENT, LEVEL IV Diagnosis: Essential (primary) hypertension[ICD10: I10] Diagnosis: Major depressive disorder, single episode, mild[ICD10: F32.0] Carrie Nuñez MD , [facility] CPT-4: 56803 09/30/2016 ([id number]) 72532 EST. PATIENT, LEVEL III Diagnosis: Bicipital tendinitis, left shoulder[ICD10: M75.22] Diagnosis: Pain in right wrist[ICD10: M25.531] Diagnosis: Pain in left wrist[ICD10: M25.532] Angi Nuñez MD, [facility] CPT-4: 71278 07/23/2016 02253 EST. PATIENT, LEVEL III Diagnosis: Pain in left shoulder[ICD10: M25.512] Diagnosis: Pain in left wrist[ICD10: M25.532] Carrie Nuñez MD, [facility] CPT-4: 26391 06/17/2016 69615 EST. PATIENT, LEVEL IV Diagnosis: Rash and other nonspecific skin eruption[ICD10: R21] Carrie Nuñez MD, 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 05/31/2018 Patient Education: Patient Medication Summary Completed [...] and transfers 05/23/2018 Appointment: Carrie Raymond WPtel: [address] [place], [place] [id number] (30 min) [facility] 05/23/2018 Patient Education: Patient Medication Summary Completed [...] monitor symptoms. 12/07/2017 Appointment: [phone] [place] (15 min) Moderate 12/07/2017 Patient Education: Patient Medication Summary Completed 12/07/2017 Referral: [facility] Referral Initiated 11/09/2017 Care Plan: Referral Order SNOMED-CT : [id number] Pending 11/05/2017 Visit Plan: Hypertension - well [...] to have surgery at [facility] - we will therefore refer to [place] [facility] Referral to Dr. Murdock for removal of Peg tube. 11/04/2017 Appointment: Anila Nuñez WPtel: [phone] [facility] (15 min) Moderate 11/04/2017 Patient Education: Patient Medication Summary Completed 11/04/2017 Appointment: Anila Nuñez WPtel: [facility] [place] (15 min) Moderate 10/28/2017 Visit Plan: Hypertension [...] [place]. 10/14/2017 Appointment: [facility]Ptel: [phone] [place] (30 min) Complex 10/14/2017 Patient Education: Patient Medication Summary Completed 10/14/2017 Appointment: Anila Nuñez WPtel: [phone] [facility] (30 min) Complex 09/21/2017 Referral: Jorje Harden HPtel:[phone] [facility] Referral Completed 03/29/2017 Care Plan: Referral Order SNOMED-CT : 856047626 Pending 03/24/2017 Visit Plan: Umbilical hernia - reducible, mildly tender to palpation - no skin or color changes - warm and dry to the touch - will refer to surgeon for evaluation - pt is to notify clinic or go to the ER for any acute changes or concerns. 03/23/2017 Appointment: Carrie Raymond WPtel: [phone] [facility] (30 min) Complex 03/23/2017 Patient Education: Patient [...] or concerns. 03/04/2017 Appointment: Carrie Raymond WPtel: [phone] [facility] [place] (30 min) Complex 03/04/2017 Patient Education: Patient [...] this patient. 09/30/2016 Appointment: Carrie Raymond WPtel: [address] [place], [place] [address] (15 min) Moderate 09/30/2016 Patient Education: Patient [...] of plan. 07/23/2016 Appointment: Angi Rodriguez WPtel: [address] [place], [place] [phone] (15 min) Moderate 07/23/2016 Patient Education: Patient [...] in pain. 05/06/2016 Appointment: Carrie Raymond WPtel: [address] [place] [address] (15 min) Moderate 05/06/2016 Patient Education: Patient [...] of spina bifida with hydrocephalus-sees neurologist in [place]-due for appt Utzvvfrkptvo-wgbtufi-qfsxyyph miralax 04/07/2016 Appointment: Angi Rodriguez WPtel: [address] [place], [place] [phone] New Patient 04/07/2016 Patient Education: Patient Medication Summary Completed 04/07/2016 Referral: [facility] Referral Appointment Requested Referral: Jorje Harden HPtel:[phone] Referral Appointment Confirmed Instructions Comment PT [...] will refer to Dr. Hargrove. OT AT [facility] TO EVALUATE AND TREAT LYMPHEDEMA DUODERM [...] of spina bifida with hydrocephalus-sees neurologist in [place]-due for appt Mruvqyzhrmbc-vnhlouy-pncdcxvn miralax . Cerumen Impaction - The impacted [...] to have surgery at [facility] - we will therefore refer to [place] [facility] Referral to Dr. Murdock for removal [...]
--- OUTSIDE RECORDS SUMMARY | 2018-06-27 16:07 | XMS REPORT | CCD ---
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 Name Role Phone PP Unavailable CCM Unavailable Summary Purpose Interface Exchange Insurance Providers Payer name Policy type / Coverage type Covered green party ID Effective Begin Date Effective End Date WPS Medicare Part B Medicare Part B [id number] Unknown Unknown [employer] - Medicare Part B [id number] Unknown Unknown Family history Father Diagnosis Age At Onset Hyperlipidemia Unknown Hypertension Unknown Social History Social History Element Codes Description Effective Dates Living arrangements Unknown [facility] 11/05/2017 Marital status Unknown Alondra 04/07/2016 Number of children Unknown 0 04/07/2016 Employment Unknown Currently unemployed 04/07/[address]: 810092582 Never smoker 04/07/[address]: 541469085 Never drinks alcohol 04/07/2016 Allergies, Adverse Reactions, Alerts Substance Reaction Codes Entered Date Inactivated Date Status Latex Unknown 04/07/2016 No Inactive Date Active * NO KNOWN DRUG ALLERGIES Unknown 04/07/2016 No Inactive Date Active Past Medical History Illness Codes Condition Status Onset Date Resolved Date Encounter for follow-up examination after completed treatment [...] Problems Condition Codes Effective Dates Condition Status Encounter for follow-up examination after completed treatment [...] hydrocodone 5 mg-acetaminophen 325 mg tablet RxNorm: 452807 1-2 Tablet(s) PO Q6 as needed 03/08/2018 07/05/2018 Active hydrocodone 5 mg-acetaminophen 325 mg tablet RxNorm: 274521 1-2 Tablet(s) PO Q6 as needed 12/30/2017 03/07/2018 Inactive Cymbalta 30 mg capsule,delayed release RxNorm: 133214 3 Capsule(s) PO daily 12/07/2017 01/31/2018 Inactive febuxostat 40 mg tablet RxNorm: 556983 1 Tablet(s) PO daily 05/11/2018 Inactive levetiracetam 1,000 mg tablet RxNorm: 372436 1 Tablet(s) PO BID 10/14/2017 05/11/2018 Inactive levetiracetam 500 mg tablet RxNorm: 174527 3 Tablet(s) PO BID 10/14/2017 11/12/2017 Inactive aspirin 325 mg tablet RxNorm: 135646 1 Tablet(s) PO daily 201705/11/2018 Inactive metoprolol tartrate 25 mg tablet RxNorm: 834759 1/2 Tablet(s) PO BID 10/14/2017 11/12/2017 Inactive Protonix 40 mg tablet,delayed release RxNorm: 293263 1 Tablet(s) PO daily 10/14/2017 05/11/2018 Inactive hydrocodone 5 mg-acetaminophen 325 mg tablet RxNorm: 063963 1 Tablet(s) PO QID as needed 10/14/2017 12/29/2017 Inactive Reglan 10 mg tablet RxNorm: 106389 1 Tablet(s) PO QID 201711/12/2017 Inactive fluoxetine 20 mg tablet RxNorm: 643232 1 Tablet(s) PO daily 10/14/2017 Inactive Cymbalta 30 mg capsule,delayed release RxNorm: 314726 1 Capsule(s) PO daily 10/14/2017 12/06/2017 Inactive Zofran 4 mg tablet RxNorm: 332611 1 Tablet(s) PO TID as needed 09/20/2017 09/29/2017 Inactive hydrocodone 5 mg-acetaminophen 325 mg tablet RxNorm: 306167 1-2 Tablet(s) PO Q6 as needed 09/20/2017 10/12/2017 Inactive naproxen 500 mg tablet RxNorm: 555684 TAKE ONE TABLET BY MOUTH TWICE DAILY NEEDED 03/29/2017 09/24/2017 Inactive Generic For:*NAPROSYN 500 MG TABLET 2016 2:53:48 PM Prozac 10 mg capsule RxNorm: 678300 1 Capsule(s) PO daily 03/2910/13/2017 Inactive hydrochlorothiazide 12.5 mg capsule RxNorm: 594612 1 Capsule(s) PO daily 03/12/2017 04/10/2017 Inactive hydrochlorothiazide 12.5 mg capsule RxNorm: 772999 1 Capsule(s) PO daily 03/12/2017 03/11/2017 Inactive lisinopril 40 mg tablet RxNorm: 715749 1 Tablet(s) PO daily 03/07/2017 Inactive lisinopril 40 mg tablet RxNorm: 242680 1 Tablet(s) PO daily 04/06/2017 Inactive melatonin 3 mg tablet RxNorm: 307033 1 Tablet(s) PO QHS as needed insomnia 03/05/2017 No Stop Date Active Voltaren 1 % topical gel RxNorm: 977742 1 Application TOP QID as needed et at HS 02/23/2017 05/23/2017 Inactive Voltaren 1 % topical gel RxNorm: 078794 1 Application TOP QID as needed et at HS 02/03/2017 02/22/2017 Inactive lisinopril 20 mg tablet RxNorm: 432135 TAKE ONE TABLET BY MOUTH EVERY DAY 01/14/2017 03/05/2017 Inactive Generic For:*PRINIVIL 20 MG TABLET 01/13/2017 2:26: 55 PM lisinopril 20 mg tablet RxNorm: 588355 1 Tablet(s) PO daily 06/201601/13/2017 Inactive lisinopril 10 mg tablet RxNorm: 003800 1 Tablet(s) PO TAKE ONE TABLET BY MOUTH ONE TIME DAILY 11/27/2016 12/14/2016 Inactive Generic For:PRINIVIL 5 MG TABLET pt is out of medication 11/18/2016 3:16:14 PM lisinopril 5 mg tablet RxNorm: 748185 TAKE ONE TABLET BY MOUTH ONE TIME DAILY 11/24/2016 11/26/2016 Inactive Generic For:PRINIVIL 5 MG TABLET pt is out of medication 11/18/2016 3:16:14 PM Prozac 10 mg capsule RxNorm: 326296 1 Capsule(s) PO daily 10/2303/21/2017 Inactive Voltaren 1 % topical gel RxNorm: 384924 1 Application TOP QID as needed et at HS 10/16/2016 02/02/2017 Inactive Prozac 10 mg capsule RxNorm: 853219 1 Capsule(s) PO daily 10/0110/22/2016 Inactive Voltaren 1 % topical gel RxNorm: 858551 1 Application TOP QID as needed et at HS 09/23/2016 10/15/2016 Inactive Voltaren 1 % topical gel RxNorm: 287256 1 Application TOP QID as needed et at HS 09/23/2016 09/22/2016 Inactive Voltaren 1 % topical gel RxNorm: 890480 1 Application TOP QID as needed et at HS 09/23/2016 09/22/2016 Inactive Flonase Allergy Relief 50 mcg/actuation nasal spray, suspension RxNorm: 7757724 1 [place] NASAL each nostril BID as needed 09/11/2016 02/07/2017 Inactive Flonase Allergy Relief 50 mcg/actuation nasal spray, suspension RxNorm: 1199569 1 [place] NASAL each nostril BID as needed 09/11/2016 09/10/2016 Inactive lisinopril 5 mg tablet RxNorm: 952611 TAKE ONE TABLET BY MOUTH ONE TIME DAILY -LOT : for 90 days 08/25/2016 11/22/2016 Inactive naproxen 500 mg tablet RxNorm: 517225 1 Tablet(s) PO BID as needed 06/17/2016 03/28/2017 Inactive Zithromax Z-Robel 250 mg tablet RxNorm: 586620 1 Tablet(s) PO UD 06/05/2016 07/22/2016 Inactive z pack as directed- patient at [facility] Miralax 17 gram/dose oral powder RxNorm: 086578 1 PO BID 2016 No Stop Date Active Bactrim DS 800 mg-160 mg tablet RxNorm: 212240 1 Tablet(s) PO BID 05/06/2016 05/15/2016 Inactive Zithromax Z-Robel 250 mg tablet RxNorm: 648750 1 Tablet(s) PO daily 04/08/2016 04/12/2016 Inactive nystatin 100,000 unit/gram topical cream RxNorm: 932336 1 Gram(s) TOP BID No Start Date Active Tylenol Extra Strength 500 mg tablet RxNorm: 601336 Tablet(s) PO as needed No Start Date Active lactobacillus acidophilus (bulk) RxNorm: 6205 miscellaneous No Start Date Active Zyrtec 10 mg tablet RxNorm: 0333004 1 Tablet(s) PO daily No Start Date Active Pataday 0.2 % eye drops RxNorm: 3746743 1 Drop(s) ophthalmic (eye) daily No Start Date Active Ginkoba M-E oral RxNorm: 161730 oral No Start Date Active Vitamin C 500 mg tablet RxNorm: 605541 1 Tablet(s) PO daily No Start Date Active Calmoseptine 0.44 %-20.6 % topical ointment RxNorm: 268646 1 Application TOP QID as needed No Start Date Active Miralax 17 gram/dose oral powder RxNorm: 355452 1 PO daily No Start Date 05/28/2016 Inactive Flonase 50 mcg/actuation nasal spray,suspension RxNorm: 6892175 1 [place] NASAL BID No Start Date 09/11/2016 Inactive omeprazole 20 mg capsule,delayed release RxNorm: 337421 1 Capsule(s) PO daily No Start Date 10/13/2017 Inactive lisinopril 5 mg tablet RxNorm: 272010 1 Tablet(s) PO daily No Start Date 08/24/2016 Inactive Zofran 4 mg tablet RxNorm: 324970 1 Tablet(s) PO TID as needed No Start Date 09/19/2017 Inactive Zithromax Z-Robel oral RxNorm: oral No Start Date 04/07/2016 Inactive Zithromax Z-Robel 250 mg tablet RxNorm: 875003 1 Tablet(s) PO UD No Start Date 06/04/2016 Inactive z pack as directed- patient at [facility] Medication Administered No Medication Administered data Immunizations No Immunization data Assessments Condition Codes Effective Dates Major depressive disorder, single episode, moderate ICD-10: [...] Visit Reason For Visit Effective Dates Notes Hospital Follow Up 05/23/2018 hypertension 12/07/2017 hypertension 11/04/2017 Hospital Follow Up 10/14/2017 hernia 03/23/2017 back pain 03/04/2017 back pain 02/10/2017 hypertension 12/16/2016 headache 09/30/2016 shoulder pain 07/23/2016 muscle weakness 06/17/2016 pain rash 05/06/2016 hypertension 04/07/2016 Results Observation Observation Code Item Item Code Result Date Urinalysis Ord28 U-Color Yellow 05/24/2018 Urinalysis Ord28 [...] Ord15 CALCIUM 9.4 mg/dL 12/27/2017 Comp Metabolic Ljg419 NA 142 mEq/L 10/15/2017 Comp Metabolic Tys845 K 4.2 mEq/L 10/15/2017 Comp Metabolic Dlr788 CL 107 mEq/L 10/15/2017 Comp Metabolic Pro812 CO2 27.0 mEq/L 10/15/2017 Comp Metabolic Aps338 ANION GAP 12 10/15/2017 Comp Metabolic Wki882 GLUCOSE 86 mg/dL 10/15/2017 Comp Metabolic Lec877 Creat 0.6 mg/dL 10/15/2017 Comp Metabolic Qzm517 eGFR 179 ml/min/1.73m2 10/15/2017 Comp Metabolic Coq593 BUN 13 mg/dL 10/15/2017 Comp Metabolic Avi441 B/C Ratio 22.8 Ratio 10/15/2017 Comp Metabolic Hkg827 CALCIUM 9.6 mg/dL 10/15/2017 Comp Metabolic Cle542 ALK PHOS 158 U/L 10/15/2017 Comp Metabolic Euj364 AST(SGOT) 15 U/L 10/15/2017 Comp Metabolic Yya414 ALT(SGPT) 29 U/L 10/15/2017 Comp Metabolic Eam449 BILI T 0.2 mg/dL 10/15/2017 Comp Metabolic Lwk217 ALBUMIN 3.5 g/dL 10/15/2017 Comp Metabolic Jsa821 TPRO 6.9 g/dL 10/15/2017 Comp Metabolic Zyk324 GLOB 3.4 g/dL 10/15/2017 Comp Metabolic Ugx001 A/G Ratio 1.1 Ratio 10/15/2017 Comp Metabolic Zkq238 Osmo 283 mOsmo 10/15/2017 Cbc With Differential [...] 87.2 fl 10/15/2017 Cbc With Differential Ord2 Smith% 8.3 % 10/15/2017 Cbc With Differential Ord2 [...] 1.78 K/ul 10/15/2017 Cbc With Differential Ord2 Smith ABS# 0.5 K/ul 10/15/2017 Cbc With Differential Ord2 Eos ABS# 0.2 K/ul 10/15/2017 Cbc With Differential Ord2 Baso ABS# 0.0 K/ul 10/15/2017 Tsh Ord6 TSH (3rd IS) 2.24 uIU/mL 10/15/2017 Renal Vpx582 NA 144 mEq/L 09/17/2017 Renal Vud014 K 3.6 mEq/L 09/17/2017 Renal Uev240 CL 104 mEq/L 09/17/2017 Renal Uqw768 CO2 28.0 mEq/L 09/17/2017 Renal Vyq557 ANION GAP 16 09/17/2017 Renal Glw394 Osmo 289 mOsmo 09/17/2017 Renal Tsi035 GLUCOSE 115 mg/dL 09/17/2017 Renal Pkb454 BUN 15 mg/dL 09/17/2017 Renal Fub817 Creat 0.9 mg/dL 09/17/2017 Renal Gat926 eGFR 100 ml/min/1.73m2 09/17/2017 Renal Cwc244 B/C Ratio 16.0 Ratio 09/17/2017 Renal Mua885 CALCIUM 10.4 mg/dL 09/17/2017 Renal Jrh275 PHOS 3.9 mg/dL 09/17/2017 Renal Fju050 ALBUMIN 4.3 g/dL 09/17/2017 Magnesium Ord90 Mag [...] 28.6 pg 09/17/2017 Cbc With Differential Ord2 Smith% 9.9 % 09/17/2017 Cbc With Differential Ord2 [...] 1.85 K/ul 09/17/2017 Cbc With Differential Ord2 Smith ABS# 0.8 K/ul 09/17/2017 Cbc With Differential Ord2 Eos ABS# 0.4 K/ul 09/17/2017 Cbc With Differential Ord2 Baso ABS# 0.0 K/ul 09/17/2017 Comp Metabolic Ucd144 NA 138 mEq/L 02/04/2017 Comp Metabolic Aoe316 K 4.5 mEq/L 02/04/2017 Comp Metabolic Wzh800 CL 98 mEq/L 02/04/2017 Comp Metabolic Fck327 CO2 30.0 mEq/L 02/04/2017 Comp Metabolic Mpy146 ANION GAP 15 02/04/2017 Comp Metabolic Zya511 GLUCOSE 99 mg/dL 02/04/2017 Comp Metabolic Wde472 Creat 0.6 mg/dL 02/04/2017 Comp Metabolic Wrl268 eGFR 183 ml/min/1.73m2 02/04/2017 Comp Metabolic Unw125 BUN 11 mg/dL 02/04/2017 Comp Metabolic Zhm782 B/C Ratio 19.6 Ratio 02/04/2017 Comp Metabolic Xho047 CALCIUM 9.5 mg/dL 02/04/2017 Comp Metabolic Kwl177 ALK PHOS 59 U/L 02/04/2017 Comp Metabolic Iie979 AST(SGOT) 14 U/L 02/04/2017 Comp Metabolic Ygy726 ALT(SGPT) 15 U/L 02/04/2017 Comp Metabolic Plk653 BILI T 0.3 mg/dL 02/04/2017 Comp Metabolic Vch288 ALBUMIN 4.0 g/dL 02/04/2017 Comp Metabolic Wrx331 TPRO 7.0 g/dL 02/04/2017 Comp Metabolic Ayn088 GLOB 3.0 g/dL 02/04/2017 Comp Metabolic Jts647 A/G Ratio 1.4 Ratio 02/04/2017 Comp Metabolic Rcz447 Osmo 275 mOsmo 02/04/2017 Review of Systems System Result Effective Dates Constitutional recent illness 05/23/2018 Constitutional No chills [...] No Procedures data Vital Signs Date Vital 05/23/2018 Blood Pressure 1: 134/78 Code : [...] Symptom Name Status Result Effective Date Notes _ infection 2018 None Quality acute 2018 [...] Codes Date EST. PATIENT, LEVEL III Diagnosis: Essential (primary) hypertension[ICD10: I10] Diagnosis: Major depressive disorder, single episode, moderate[ICD10: F32.1] Diagnosis: Encounter for follow-up examination after completed treatment for conditions other than malignant neoplasm[ICD10: Z09] Diagnosis: Weakness[ICD10: R53.1] [facility], [facility] CPT-4: 91720 05/23/2018 ([id number]) 71146 EST. PATIENT, LEVEL IV Diagnosis: Essential (primary) hypertension[ICD10: I10] Diagnosis: Major depressive disorder, single episode, moderate[ICD10: F32.1] Diagnosis: Muscle spasm of back[ICD10: M62.830] Diagnosis: Other headache syndrome[ICD10: G44.89] [facility] CPT-4: 78978 12/07/2017 [id number]) 76377 EST. PATIENT, LEVEL IV Diagnosis: Essential (primary) hypertension[ICD10: I10] Diagnosis: Major depressive disorder, single episode, moderate[ICD10: F32.1] Diagnosis: Pressure ulcer of contiguous site of back, buttock and hip, stage 3[ ICD10: L89.43] [facility], [facility] CPT-4: 33163 11/04/2017 [id number] 48802 EST. 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 PATIENT, LEVEL IV Diagnosis: Umbilical hernia without obstruction or gangrene[ICD10: K42.9] Carrie [facility]ñez MD, [facility] CPT-4: 66218 03/23/2017 72344 EST. PATIENT, LEVEL IV Diagnosis: Other insomnia[ICD10: G47.09] Diagnosis: Essential (primary) hypertension[ICD10: I10] Diagnosis: Pain in thoracic spine[ICD10: M54.6] Diagnosis: Cervicalgia[ICD10: M54.2] Carrie [facility]ñez MD, [facility] CPT-4: 27211 03/04/2017 83375 EST. PATIENT, LEVEL III Diagnosis: Cervicalgia[ICD10: M54.2] Diagnosis: Pain in thoracic spine[ICD10: M54.6] Diagnosis: Muscle spasm of back[ICD10: M62.830] Carrie Nuñez MD, [facility] CPT-4: 14416 02/10/2017 73113 EST. PATIENT, LEVEL IV Diagnosis: Essential (primary) hypertension[ICD10: I10] Diagnosis: Lumbar spina bifida without hydrocephalus[ICD10: Q05.7] Carrie Nuñez MD, [facility] CPT-4: 84419 12/16/2016 09060 EST. PATIENT, LEVEL IV Diagnosis: Essential (primary) hypertension[ICD10: I10] Diagnosis: Major depressive disorder, single episode, mild[ICD10: F32.0] Carrie Nuñez MD , [facility] CPT-4: 72104 09/30/2016 ([id number]) 15335 EST. PATIENT, LEVEL III Diagnosis: Bicipital tendinitis, left shoulder[ICD10: M75.22] Diagnosis: Pain in right wrist[ICD10: M25.531] Diagnosis: Pain in left wrist[ICD10: M25.532] Angi Nuñez MD, [facility] CPT-4: 88496 07/23/2016 17098 EST. PATIENT, LEVEL III Diagnosis: Pain in left shoulder[ICD10: M25.512] Diagnosis: Pain in left wrist[ICD10: M25.532] Carrie Nuñez MD, [facility] CPT-4: 47233 06/17/2016 05413 EST. 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 12/07/2017 Appointment: Anila Nuñez WPtel: [facility] (15 min) Moderate 12/07/2017 Patient Education: Patient Medication Summary Completed 12/07/2017 Referral: [facility] Referral Initiated 11/09/2017 Care Plan: Referral Order SNOMED-CT : [id number] Pending 11/05/2017 Visit Plan: Hypertension - well [...] too complicated to have surgery at [facility] - we will therefore refer to [facility] Referral to Dr. Murdock for removal of Peg tube. 11/04/2017 Appointment: Anila Nuñez WPtel: [facility] (15 min) Moderate 11/04/2017 Patient Education: Patient Medication Summary Completed 11/04/2017 Appointment: Anila Nuñez WPtel: [facility] (15 min) Moderate 10/28/2017 Visit Plan: [...] Dr. Hargrove. 10/14/2017 Appointment: Anila Nuñez WPtel: [facility] (30 min) Complex 10/14/2017 Patient Education: Patient Medication Summary Completed 10/14/2017 Appointment: Anila Nuñez WPtel: [facility] [place] (30 min) Complex 09/21/2017 Referral: Jorje Harden [facility]:[phone] [facility] Referral Completed 03/29/2017 Care Plan: Referral Order SNOMED-CT : [id number] Pending 03/24/2017 Visit Plan: Umbilical hernia - reducible, mildly tender to palpation - no skin or color changes - warm and dry to the touch - will refer to surgeon for evaluation - pt is to notify clinic or go to the ER for any acute changes or concerns. 03/23/2017 Appointment: Carrie Raymond WPtel: [facility] (30 min) Complex 03/23/2017 Patient Education: [...] or concerns. 03/04/2017 Appointment: Carrie Raymond WPtel: [facility] [place] (30 min) Complex 03/04/2017 Patient [...] this patient. 09/30/2016 Appointment: Carrie Raymond WPtel: [address] [place], [place] [address] (15 min) Moderate 09/30/2016 Patient Education: Patient [...] of plan. 07/23/2016 Appointment: Angi Rodriguez WPtel: [address] [place] [address] (15 min) Moderate 07/23/2016 Patient Education: Patient [...] in pain. 05/06/2016 Appointment: Carrie Raymond WPtel: [address] [place] [address] (15 min) Moderate 05/06/2016 Patient Education: Patient [...] of spina bifida with hydrocephalus-sees neurologist in [place]-due for appt Nehqvnioayux-jcvjrdq-cteotdcg miralax 04/07/2016 Appointment: Angi Rodriguez WPtel: [address] [place], [place] [phone] New Patient 04/07/2016 Patient Education: Patient Medication Summary Completed 04/07/2016 Referral: [facility] Referral Appointment Requested Referral: [phone] [place] Referral Appointment Confirmed Instructions Comment PT [...] will refer to Dr. Hargrove. OT AT [facility] TO EVALUATE AND TREAT LYMPHEDEMA [...] of spina bifida with hydrocephalus-sees neurologist in [place]-due for appt Oiinjuzlmcov-arllwcm-zsdnecxb miralax . Hypertension - uncontrolled - the [...] Carol - we will therefore refer to [facility] Referral to Dr. Murdock for removal [...]
--- OUTSIDE RECORDS SUMMARY | 2018-06-27 16:09 | XMS REPORT | CCD ---
Author Author Angi Rodriguez Organization [facility] Address [address] [place] [address] Phone Care Team Providers Care Sales Development Representative Name Role Phone PP Unavailable CCM Unavailable Summary Purpose Interface Exchange Insurance Providers Payer name Policy type / Coverage type Covered green party ID Effective Begin Date Effective End Date WPS Medicare Part B Medicare Part B [id number] Unknown Unknown [employer] - Medicare Part B [id number] Unknown Unknown Family history Father Diagnosis Age At Onset Hyperlipidemia Unknown Hypertension Unknown Social History Social History Element Codes Description Effective Dates Living arrangements Unknown Snf [facility] 11/05/2017 Marital status Unknown Alondra 04/07/2016 Number of children Unknown 0 04/07/2016 Employment Unknown Currently unemployed 04/07/[address]: 011614063 Never smoker 04/07/[address]: 674661049 Never drinks alcohol 04/07/2016 Allergies, Adverse Reactions, [...] hydrocodone 5 mg-acetaminophen 325 mg tablet RxNorm: 155785 1-2 Tablet(s) PO Q6 as needed 03/08/2018 07/05/2018 Active hydrocodone 5 mg-acetaminophen 325 mg tablet RxNorm: 244182 1-2 Tablet(s) PO Q6 as needed 12/30/2017 03/07/2018 Inactive Cymbalta 30 mg capsule,delayed release RxNorm: 569184 3 Capsule(s) PO daily 12/07/2017 01/31/2018 Inactive febuxostat 40 mg tablet RxNorm: 513649 1 Tablet(s) PO daily 05/11/2018 Inactive levetiracetam 1,000 mg tablet RxNorm: 620339 1 Tablet(s) PO BID 10/14/2017 05/11/2018 Inactive levetiracetam 500 mg tablet RxNorm: 851513 3 Tablet(s) PO BID 10/14/2017 11/12/2017 Inactive aspirin 325 mg tablet RxNorm: 077181 1 Tablet(s) PO daily 201705/11/2018 Inactive metoprolol tartrate 25 mg tablet RxNorm: 302328 1/2 Tablet(s) PO BID 10/14/2017 11/12/2017 Inactive Protonix 40 mg tablet,delayed release RxNorm: 810298 1 Tablet(s) PO daily 10/14/2017 05/11/2018 Inactive hydrocodone 5 mg-acetaminophen 325 mg tablet RxNorm: 146868 1 Tablet(s) PO QID as needed 10/14/2017 12/29/2017 Inactive Reglan 10 mg tablet RxNorm: 148269 1 Tablet(s) PO QID 201711/12/2017 Inactive fluoxetine 20 mg tablet RxNorm: 000220 1 Tablet(s) PO daily 10/14/2017 Inactive Cymbalta 30 mg capsule,delayed release RxNorm: 645513 1 Capsule(s) PO daily 10/14/2017 12/06/2017 Inactive Zofran 4 mg tablet RxNorm: 587438 1 Tablet(s) PO TID as needed 09/20/2017 09/29/2017 Inactive hydrocodone 5 mg-acetaminophen 325 mg tablet RxNorm: 307749 1-2 Tablet(s) PO Q6 as needed 09/20/2017 10/12/2017 Inactive naproxen 500 mg tablet RxNorm: 787920 TAKE ONE TABLET BY MOUTH TWICE DAILY NEEDED 03/29/2017 09/24/2017 Inactive Generic For:*NAPROSYN 500 MG TABLET 2016 2:53:48 PM Prozac 10 mg capsule RxNorm: 002906 1 Capsule(s) PO daily 03/2910/13/2017 Inactive hydrochlorothiazide 12.5 mg capsule RxNorm: 669889 1 Capsule(s) PO daily 03/12/2017 04/10/2017 Inactive hydrochlorothiazide 12.5 mg capsule RxNorm: 203077 1 Capsule(s) PO daily 03/12/2017 03/11/2017 Inactive lisinopril 40 mg tablet RxNorm: 186142 1 Tablet(s) PO daily 03/07/2017 Inactive lisinopril 40 mg tablet RxNorm: 573929 1 Tablet(s) PO daily 04/06/2017 Inactive melatonin 3 mg tablet RxNorm: 968172 1 Tablet(s) PO QHS as needed insomnia 03/05/2017 No Stop Date Active Voltaren 1 % topical gel RxNorm: 463136 1 Application TOP QID as needed et at HS 02/23/2017 05/23/2017 Inactive Voltaren 1 % topical gel RxNorm: 123275 1 Application TOP QID as needed et at HS 02/03/2017 02/22/2017 Inactive lisinopril 20 mg tablet RxNorm: 919420 TAKE ONE TABLET BY MOUTH EVERY DAY 01/14/2017 03/05/2017 Inactive Generic For:*PRINIVIL 20 MG TABLET 01/13/2017 2:26: 55 PM lisinopril 20 mg tablet RxNorm: 255349 1 Tablet(s) PO daily 06/201601/13/2017 Inactive lisinopril 10 mg tablet RxNorm: 048105 1 Tablet(s) PO TAKE ONE TABLET BY MOUTH ONE TIME DAILY 11/27/2016 12/14/2016 Inactive Generic For:PRINIVIL 5 MG TABLET pt is out of medication 11/18/2016 3:16:14 PM lisinopril 5 mg tablet RxNorm: 098235 TAKE ONE TABLET BY MOUTH ONE TIME DAILY 11/24/2016 11/26/2016 Inactive Generic For:PRINIVIL 5 MG TABLET pt is out of medication 11/18/2016 3:16:14 PM Prozac 10 mg capsule RxNorm: 410809 1 Capsule(s) PO daily 10/2303/21/2017 Inactive Voltaren 1 % topical gel RxNorm: 749310 1 Application TOP QID as needed et at HS 10/16/2016 02/02/2017 Inactive Prozac 10 mg capsule RxNorm: 871703 1 Capsule(s) PO daily 10/0110/22/2016 Inactive Voltaren 1 % topical gel RxNorm: 477370 1 Application TOP QID as needed et at HS 09/23/2016 10/15/2016 Inactive Voltaren 1 % topical gel RxNorm: 149352 1 Application TOP QID as needed et at HS 09/23/2016 09/22/2016 Inactive Voltaren 1 % topical gel RxNorm: 143364 1 Application TOP QID as needed et at HS 09/23/2016 09/22/2016 Inactive Flonase Allergy Relief 50 mcg/actuation nasal spray, suspension RxNorm: 6500121 1 [place] NASAL each nostril BID as needed 09/11/2016 02/07/2017 Inactive Flonase Allergy Relief 50 mcg/actuation nasal spray, suspension RxNorm: 7300507 1 [place] NASAL each nostril BID as needed 09/11/2016 09/10/2016 Inactive lisinopril 5 mg tablet RxNorm: 923344 TAKE ONE TABLET BY MOUTH ONE TIME DAILY -LOT : for 90 days 08/25/2016 11/22/2016 Inactive naproxen 500 mg tablet RxNorm: 069858 1 Tablet(s) PO BID as needed 06/17/2016 03/28/2017 Inactive Zithromax Z-Robel 250 mg tablet RxNorm: 032213 1 Tablet(s) PO UD 06/05/2016 07/22/2016 Inactive z pack as directed- patient at [facility] Miralax 17 gram/dose oral powder RxNorm: 615808 1 PO BID 2016 No Stop Date Active Bactrim DS 800 mg-160 mg tablet RxNorm: 923912 1 Tablet(s) PO BID 05/06/2016 05/15/2016 Inactive Zithromax Z-Roebl 250 mg tablet RxNorm: 336250 1 Tablet(s) PO daily 04/08/2016 04/12/2016 Inactive nystatin 100,000 unit/gram topical cream RxNorm: 723727 1 Gram(s) TOP BID No Start Date Active Tylenol Extra Strength 500 mg tablet RxNorm: 533461 Tablet(s) PO as needed No Start Date Active lactobacillus acidophilus (bulk) RxNorm: 6205 miscellaneous No Start Date Active Zyrtec 10 mg tablet RxNorm: 2160496 1 Tablet(s) PO daily No Start Date Active Pataday 0.2 % eye drops RxNorm: 2204955 1 Drop(s) ophthalmic (eye) daily No Start Date Active Ginkoba M-E oral RxNorm: 637995 oral No Start Date Active Vitamin C 500 mg tablet RxNorm: 094058 1 Tablet(s) PO daily No Start Date Active Calmoseptine 0.44 %-20.6 % topical ointment RxNorm: 762310 1 Application TOP QID as needed No Start Date Active Miralax 17 gram/dose oral powder RxNorm: 238221 1 PO daily No Start Date 05/28/2016 Inactive Flonase 50 mcg/actuation nasal spray,suspension RxNorm: 7738773 1 [place] NASAL BID No Start Date 09/11/2016 Inactive omeprazole 20 mg capsule,delayed release RxNorm: 653178 1 Capsule(s) PO daily No Start Date 10/13/2017 Inactive lisinopril 5 mg tablet RxNorm: 095495 1 Tablet(s) PO daily No Start Date 08/24/2016 Inactive Zofran 4 mg tablet RxNorm: 204724 1 Tablet(s) PO TID as needed No Start Date 09/19/2017 Inactive Zithromax Z-Robel oral RxNorm: oral No Start Date 04/07/2016 Inactive Zithromax Z-Robel 250 mg tablet RxNorm: 323846 1 Tablet(s) PO UD No Start Date 06/04/2016 Inactive z pack as directed- patient at [facility] Medication Administered No Medication Administered data [...] Ord15 CALCIUM 9.4 mg/dL 12/27/2017 Comp Metabolic Eyt474 NA 142 mEq/L 10/15/2017 Comp Metabolic Chz098 K 4.2 mEq/L 10/15/2017 Comp Metabolic Mvh537 CL 107 mEq/L 10/15/2017 Comp Metabolic Jvn436 CO2 27.0 mEq/L 10/15/2017 Comp Metabolic Oij836 ANION GAP 12 10/15/2017 Comp Metabolic Dqn068 GLUCOSE 86 mg/dL 10/15/2017 Comp Metabolic Tag540 Creat 0.6 mg/dL 10/15/2017 Comp Metabolic Juk926 eGFR 179 ml/min/1.73m2 10/15/2017 Comp Metabolic Gyl230 BUN 13 mg/dL 10/15/2017 Comp Metabolic Fcj755 B/C Ratio 22.8 Ratio 10/15/2017 Comp Metabolic Sqs641 CALCIUM 9.6 mg/dL 10/15/2017 Comp Metabolic Ucx644 ALK PHOS 158 U/L 10/15/2017 Comp Metabolic Uzy797 AST(SGOT) 15 U/L 10/15/2017 Comp Metabolic Ycb265 ALT(SGPT) 29 U/L 10/15/2017 Comp Metabolic Akp387 BILI T 0.2 mg/dL 10/15/2017 Comp Metabolic Hub763 ALBUMIN 3.5 g/dL 10/15/2017 Comp Metabolic Tny444 TPRO 6.9 g/dL 10/15/2017 Comp Metabolic Ayo505 GLOB 3.4 g/dL 10/15/2017 Comp Metabolic Zeq538 A/G Ratio 1.1 Ratio 10/15/2017 Comp Metabolic Ras781 Osmo 283 mOsmo 10/15/2017 Cbc With Differential [...] 87.2 fl 10/15/2017 Cbc With Differential Ord2 [place]% 8.3 % 10/15/2017 Cbc With Differential Ord2 [...] 1.78 K/ul 10/15/2017 Cbc With Differential Ord2 [place] ABS# 0.5 K/ul 10/15/2017 Cbc With Differential Ord2 Eos ABS# 0.2 K/ul 10/15/2017 Cbc With Differential Ord2 Baso ABS# 0.0 K/ul 10/15/2017 Tsh Ord6 TSH (3rd IS) 2.24 uIU/mL 10/15/2017 Renal Uwr456 NA 144 mEq/L 09/17/2017 Renal Bdi140 K 3.6 mEq/L 09/17/2017 Renal Hiq975 CL 104 mEq/L 09/17/2017 Renal Uje725 CO2 28.0 mEq/L 09/17/2017 Renal Hhs284 ANION GAP 16 09/17/2017 Renal Oei601 Osmo 289 mOsmo 09/17/2017 Renal Vxj790 GLUCOSE 115 mg/dL 09/17/2017 Renal Eip253 BUN 15 mg/dL 09/17/2017 Renal Jpy378 Creat 0.9 mg/dL 09/17/2017 Renal Zvp677 eGFR 100 ml/min/1.73m2 09/17/2017 Renal Tqi244 B/C Ratio 16.0 Ratio 09/17/2017 Renal Dwu701 CALCIUM 10.4 mg/dL 09/17/2017 Renal Lyh258 PHOS 3.9 mg/dL 09/17/2017 Renal Tce655 ALBUMIN 4.3 g/dL 09/17/2017 Magnesium Ord90 Mag [...] 28.6 pg 09/17/2017 Cbc With Differential Ord2 [place]% 9.9 % 09/17/2017 Cbc With Differential Ord2 [...] 1.85 K/ul 09/17/2017 Cbc With Differential Ord2 [place] ABS# 0.8 K/ul 09/17/2017 Cbc With Differential Ord2 Eos ABS# 0.4 K/ul 09/17/2017 Cbc With Differential Ord2 Baso ABS# 0.0 K/ul 09/17/2017 Comp Metabolic Vzk850 NA 138 mEq/L 02/04/2017 Comp Metabolic Xzr253 K 4.5 mEq/L 02/04/2017 Comp Metabolic Rxt439 CL 98 mEq/L 02/04/2017 Comp Metabolic Gyo744 CO2 30.0 mEq/L 02/04/2017 Comp Metabolic Eks900 ANION GAP 15 02/04/2017 Comp Metabolic Rba957 GLUCOSE 99 mg/dL 02/04/2017 Comp Metabolic Bel612 Creat 0.6 mg/dL 02/04/2017 Comp Metabolic Rnk972 eGFR 183 ml/min/1.73m2 02/04/2017 Comp Metabolic Fmx327 BUN 11 mg/dL 02/04/2017 Comp Metabolic Yqo815 B/C Ratio 19.6 Ratio 02/04/2017 Comp Metabolic Bmu686 CALCIUM 9.5 mg/dL 02/04/2017 Comp Metabolic Gnx930 ALK PHOS 59 U/L 02/04/2017 Comp Metabolic Fxl432 AST(SGOT) 14 U/L 02/04/2017 Comp Metabolic Zng342 ALT(SGPT) 15 U/L 02/04/2017 Comp Metabolic Vve985 BILI T 0.3 mg/dL 02/04/2017 Comp Metabolic Erj363 ALBUMIN 4.0 g/dL 02/04/2017 Comp Metabolic Clu526 TPRO 7.0 g/dL 02/04/2017 Comp Metabolic Ral141 GLOB 3.0 g/dL 02/04/2017 Comp Metabolic Omz743 A/G Ratio 1.4 Ratio 02/04/2017 Comp Metabolic Kzd805 Osmo 275 mOsmo 02/04/2017 Review of Systems [...] Z09] Diagnosis: Weakness[ICD10: R53.1] Carrie [facility]ñez MD, [facility] CPT-4: 22464 05/23/2018 ([id number]) 07832 EST. PATIENT, LEVEL IV Diagnosis: Essential (primary) hypertension[ICD10: I10] Diagnosis: Major depressive disorder, single episode, moderate[ICD10: F32.1] Diagnosis: Muscle spasm of back[ICD10: M62.830] Diagnosis: Other headache syndrome[ICD10: G44.89] [facility], [facility] CPT-4: 13004 12/07/2017 97864) 19941 EST. PATIENT, LEVEL IV Diagnosis: Essential (primary) hypertension[ICD10: I10] Diagnosis: Major depressive disorder, single episode, moderate[ICD10: F32.1] Diagnosis: Pressure ulcer of contiguous site of back, buttock and hip, stage 3[ ICD10: L89.43] [facility], [facility] CPT-4: 69523 11/04/2017 05829 07896 EST. 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 PATIENT, LEVEL IV Diagnosis: Umbilical hernia without obstruction or gangrene[ICD10: K42.9] Carrie [facility]ñez MD, [facility] CPT-4: 14697 03/23/2017 64959 EST. PATIENT, LEVEL IV Diagnosis: Other insomnia[ICD10: G47.09] Diagnosis: Essential (primary) hypertension[ICD10: I10] Diagnosis: Pain in thoracic spine[ICD10: M54.6] Diagnosis: Cervicalgia[ICD10: M54.2] Carrie [facility]ñez MD, [facility] CPT-4: 73120 03/04/2017 39625 EST. PATIENT, LEVEL III Diagnosis: Cervicalgia[ICD10: M54.2] Diagnosis: Pain in thoracic spine[ICD10: M54.6] Diagnosis: Muscle spasm of back[ICD10: M62.830] Carrie Nuñez MD, [facility] CPT-4: 62958 02/10/2017 60631 EST. PATIENT, LEVEL IV Diagnosis: Essential (primary) hypertension[ICD10: I10] Diagnosis: Lumbar spina bifida without hydrocephalus[ICD10: Q05.7] Carrie Nuñez MD, [facility] CPT-4: 60652 12/16/2016 67133 EST. PATIENT, LEVEL IV Diagnosis: Essential (primary) hypertension[ICD10: I10] Diagnosis: Major depressive disorder, single episode, mild[ICD10: F32.0] Carrie Nuñez MD , [facility] CPT-4: 26443 09/30/2016 ([id number]) 10592 EST. PATIENT, LEVEL III Diagnosis: Bicipital tendinitis, left shoulder[ICD10: M75.22] Diagnosis: Pain in right wrist[ICD10: M25.531] Diagnosis: Pain in left wrist[ICD10: M25.532] Angi Nuñez MD, [facility] CPT-4: 39090 07/23/2016 39324 EST. PATIENT, LEVEL III Diagnosis: Pain in left shoulder[ICD10: M25.512] Diagnosis: Pain in left wrist[ICD10: M25.532] Carrie Nuñez MD, [facility] CPT-4: 97671 06/17/2016 08428 EST. 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 12/07/2017 Appointment: Anila Nuñez WPtel: [facility]5 [facility] (15 min) Moderate 12/07/2017 Patient Education: Patient Medication Summary Completed 12/07/2017 Referral: [facility] Referral Initiated 11/09/2017 Care Plan: Referral Order SNOMED-CT : [id number] Pending 11/05/2017 Visit Plan: Hypertension - well [...] too complicated to have surgery at [facility] - we will therefore refer to [place] [facility] Referral to Dr. Murdock for removal of Peg tube. 11/04/2017 Appointment: Anila Nuñez WPtel: [facility] (15 min) Moderate 11/04/2017 Patient Education: Patient Medication Summary Completed 11/04/2017 Appointment: Anila Nuñez WPtel: [facility] (15 min) Moderate 10/28/2017 Visit Plan: [...] [place]. 10/14/2017 Appointment: Anila Nuñez WPtel: [facility]5 [facility] (30 min) Complex 10/14/2017 Patient Education: Patient Medication Summary Completed 10/14/2017 Appointment: Anila Nuñez WPtel: [facility] [place] (30 min) Complex 09/21/2017 Referral: Jorje Harden [facility]:[phone] [facility] Referral Completed 03/29/2017 Care Plan: Referral Order SNOMED-CT : [id number] Pending 03/24/2017 Visit Plan: Umbilical hernia - reducible, mildly tender to palpation - no skin or color changes - warm and dry to the touch - will refer to surgeon for evaluation - pt is to notify clinic or go to the ER for any acute changes or concerns. 03/23/2017 Appointment: Carrie Raymond WPtel: [facility] (30 min) Complex 03/23/2017 Patient Education: [...] concerns. 03/04/2017 Appointment: Carrie Raymond WPtel: [facility] [place] (30 min) Complex 03/04/2017 Patient [...] this patient. 09/30/2016 Appointment: Carrie Raymond WPtel: [address] [place], [place] [address] (15 min) Moderate 09/30/2016 Patient Education: Patient [...] of plan. 07/23/2016 Appointment: Angi Rodriguez WPtel: [address] [place] [address] (15 min) Moderate 07/23/2016 Patient Education: Patient [...] in pain. 05/06/2016 Appointment: Carrie Raymond WPtel: [address] [place] [address] (15 min) Moderate 05/06/2016 Patient Education: Patient [...] of spina bifida with hydrocephalus-sees neurologist in [place]-due for appt Zxyiscudqwau-ewkgwwv-sluzozdd miralax 04/07/2016 Appointment: Angi Rodriguez WPtel: [address] [place], [place] [phone] New Patient 04/07/2016 Patient Education: Patient Medication Summary Completed 04/07/2016 Referral: [facility] Referral Appointment Requested Referral: Jorje Hardenel:[phone] [facility] [place] Referral Appointment Confirmed Instructions Comment PT [...] will refer to Dr. Hargrove. OT AT [facility] TO EVALUATE AND TREAT LYMPHEDEMA DUODERM [...] of spina bifida with hydrocephalus-sees neurologist in [place]-due for appt Tcoclswynhls-zivoehr-ewshaczz miralax . Hypertension - uncontrolled - the [...] Carol - we will therefore refer to [place] [facility] Referral to Dr. Murdock for removal [...]
--- OUTSIDE RECORDS SUMMARY | 2018-06-27 16:10 | XMS REPORT | CCD ---
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 Name Role Phone PP Unavailable CCM Unavailable Summary Purpose Interface Exchange Insurance Providers Payer name Policy type / Coverage type Covered republican ID Effective Begin Date Effective End Date WPS Medicare Part B Medicare Part B [id number] Unknown Unknown [employer] - Medicare Part B [id number] Unknown Unknown Family history Father Diagnosis Age At Onset Hyperlipidemia Unknown Hypertension Unknown Social History Social History Element Codes Description Effective Dates Living arrangements Unknown [facility] 11/05/2017 Marital status Unknown Alondra 04/07/2016 Number of children Unknown 0 04/07/2016 Employment Unknown Currently unemployed 04/07/[address]: 324545717 Never smoker 04/07/[address]: 294635802 Never drinks alcohol 04/07/2016 Allergies, Adverse Reactions, [...] hydrocodone 5 mg-acetaminophen 325 mg tablet RxNorm: 582116 1-2 Tablet(s) PO Q6 as needed 03/08/2018 07/05/2018 Active hydrocodone 5 mg-acetaminophen 325 mg tablet RxNorm: 096520 1-2 Tablet(s) PO Q6 as needed 12/30/2017 03/07/2018 Inactive Cymbalta 30 mg capsule,delayed release RxNorm: 650619 3 Capsule(s) PO daily 12/07/2017 01/31/2018 Inactive febuxostat 40 mg tablet RxNorm: 970548 1 Tablet(s) PO daily 05/11/2018 Inactive levetiracetam 1,000 mg tablet RxNorm: 975970 1 Tablet(s) PO BID 10/14/2017 05/11/2018 Inactive levetiracetam 500 mg tablet RxNorm: 287031 3 Tablet(s) PO BID 10/14/2017 11/12/2017 Inactive aspirin 325 mg tablet RxNorm: 616138 1 Tablet(s) PO daily 201705/11/2018 Inactive metoprolol tartrate 25 mg tablet RxNorm: 218700 1/2 Tablet(s) PO BID 10/14/2017 11/12/2017 Inactive Protonix 40 mg tablet,delayed release RxNorm: 950895 1 Tablet(s) PO daily 10/14/2017 05/11/2018 Inactive hydrocodone 5 mg-acetaminophen 325 mg tablet RxNorm: 157311 1 Tablet(s) PO QID as needed 10/14/2017 12/29/2017 Inactive Reglan 10 mg tablet RxNorm: 241877 1 Tablet(s) PO QID 201711/12/2017 Inactive fluoxetine 20 mg tablet RxNorm: 028325 1 Tablet(s) PO daily 10/14/2017 Inactive Cymbalta 30 mg capsule,delayed release RxNorm: 235602 1 Capsule(s) PO daily 10/14/2017 12/06/2017 Inactive Zofran 4 mg tablet RxNorm: 624353 1 Tablet(s) PO TID as needed 09/20/2017 09/29/2017 Inactive hydrocodone 5 mg-acetaminophen 325 mg tablet RxNorm: 540089 1-2 Tablet(s) PO Q6 as needed 09/20/2017 10/12/2017 Inactive naproxen 500 mg tablet RxNorm: 060574 TAKE ONE TABLET BY MOUTH TWICE DAILY NEEDED 03/29/2017 09/24/2017 Inactive Generic For:*NAPROSYN 500 MG TABLET 2016 2:53:48 PM Prozac 10 mg capsule RxNorm: 437964 1 Capsule(s) PO daily 03/2910/13/2017 Inactive hydrochlorothiazide 12.5 mg capsule RxNorm: 786783 1 Capsule(s) PO daily 03/12/2017 04/10/2017 Inactive hydrochlorothiazide 12.5 mg capsule RxNorm: 880877 1 Capsule(s) PO daily 03/12/2017 03/11/2017 Inactive lisinopril 40 mg tablet RxNorm: 966547 1 Tablet(s) PO daily 03/07/2017 Inactive lisinopril 40 mg tablet RxNorm: 515232 1 Tablet(s) PO daily 04/06/2017 Inactive melatonin 3 mg tablet RxNorm: 947933 1 Tablet(s) PO QHS as needed insomnia 03/05/2017 No Stop Date Active Voltaren 1 % topical gel RxNorm: 312993 1 Application TOP QID as needed et at HS 02/23/2017 05/23/2017 Inactive Voltaren 1 % topical gel RxNorm: 076320 1 Application TOP QID as needed et at HS 02/03/2017 02/22/2017 Inactive lisinopril 20 mg tablet RxNorm: 375708 TAKE ONE TABLET BY MOUTH EVERY DAY 01/14/2017 03/05/2017 Inactive Generic For:*PRINIVIL 20 MG TABLET 01/13/2017 2:26: 55 PM lisinopril 20 mg tablet RxNorm: 556641 1 Tablet(s) PO daily 06/201601/13/2017 Inactive lisinopril 10 mg tablet RxNorm: 173943 1 Tablet(s) PO TAKE ONE TABLET BY MOUTH ONE TIME DAILY 11/27/2016 12/14/2016 Inactive Generic For:PRINIVIL 5 MG TABLET pt is out of medication 11/18/2016 3:16:14 PM lisinopril 5 mg tablet RxNorm: 185285 TAKE ONE TABLET BY MOUTH ONE TIME DAILY 11/24/2016 11/26/2016 Inactive Generic For:PRINIVIL 5 MG TABLET pt is out of medication 11/18/2016 3:16:14 PM Prozac 10 mg capsule RxNorm: 016744 1 Capsule(s) PO daily 10/2303/21/2017 Inactive Voltaren 1 % topical gel RxNorm: 108453 1 Application TOP QID as needed et at HS 10/16/2016 02/02/2017 Inactive Prozac 10 mg capsule RxNorm: 073990 1 Capsule(s) PO daily 10/0110/22/2016 Inactive Voltaren 1 % topical gel RxNorm: 011563 1 Application TOP QID as needed et at HS 09/23/2016 10/15/2016 Inactive Voltaren 1 % topical gel RxNorm: 118011 1 Application TOP QID as needed et at HS 09/23/2016 09/22/2016 Inactive Voltaren 1 % topical gel RxNorm: 522113 1 Application TOP QID as needed et at HS 09/23/2016 09/22/2016 Inactive Flonase Allergy Relief 50 mcg/actuation nasal spray, suspension RxNorm: 7802864 1 [place] NASAL each nostril BID as needed 09/11/2016 02/07/2017 Inactive Flonase Allergy Relief 50 mcg/actuation nasal spray, suspension RxNorm: 1714283 1 [place] NASAL each nostril BID as needed 09/11/2016 09/10/2016 Inactive lisinopril 5 mg tablet RxNorm: 720233 TAKE ONE TABLET BY MOUTH ONE TIME DAILY -LOT : for 90 days 08/25/2016 11/22/2016 Inactive naproxen 500 mg tablet RxNorm: 940846 1 Tablet(s) PO BID as needed 06/17/2016 03/28/2017 Inactive Zithromax Z-Robel 250 mg tablet RxNorm: 684180 1 Tablet(s) PO UD 06/05/2016 07/22/2016 Inactive z pack as directed- patient at [facility] Miralax 17 gram/dose oral powder RxNorm: 247654 1 PO BID 2016 No Stop Date Active Bactrim DS 800 mg-160 mg tablet RxNorm: 919521 1 Tablet(s) PO BID 05/06/2016 05/15/2016 Inactive Zithromax Z-Robel 250 mg tablet RxNorm: 963907 1 Tablet(s) PO daily 04/08/2016 04/12/2016 Inactive nystatin 100,000 unit/gram topical cream RxNorm: 808970 1 Gram(s) TOP BID No Start Date Active Tylenol Extra Strength 500 mg tablet RxNorm: 166449 Tablet(s) PO as needed No Start Date Active lactobacillus acidophilus (bulk) RxNorm: 6205 miscellaneous No Start Date Active Zyrtec 10 mg tablet RxNorm: 0829668 1 Tablet(s) PO daily No Start Date Active Pataday 0.2 % eye drops RxNorm: 7539701 1 Drop(s) ophthalmic (eye) daily No Start Date Active Ginkoba M-E oral RxNorm: 807668 oral No Start Date Active Vitamin C 500 mg tablet RxNorm: 810259 1 Tablet(s) PO daily No Start Date Active Calmoseptine 0.44 %-20.6 % topical ointment RxNorm: 857685 1 Application TOP QID as needed No Start Date Active Miralax 17 gram/dose oral powder RxNorm: 587464 1 PO daily No Start Date 05/28/2016 Inactive Flonase 50 mcg/actuation nasal spray,suspension RxNorm: 5038235 1 [place] NASAL BID No Start Date 09/11/2016 Inactive omeprazole 20 mg capsule,delayed release RxNorm: 140263 1 Capsule(s) PO daily No Start Date 10/13/2017 Inactive lisinopril 5 mg tablet RxNorm: 158983 1 Tablet(s) PO daily No Start Date 08/24/2016 Inactive Zofran 4 mg tablet RxNorm: 356759 1 Tablet(s) PO TID as needed No Start Date 09/19/2017 Inactive Zithromax Z-Robel oral RxNorm: oral No Start Date 04/07/2016 Inactive Zithromax Z-Robel 250 mg tablet RxNorm: 241964 1 Tablet(s) PO UD No Start Date 06/04/2016 Inactive z pack as directed- patient at [facility] Medication Administered No Medication Administered [...] U-VOL VOLUME SUFFICIENT (10mL) 05/24/2018 Urinalysis Ord28 U-Yeast NEGATIVE 05/24/2018 Urinalysis Ord28 U-Com Culture to follow 05/24/2018 Metabolic Ord15 NA 138 mEq/L 12/27/2017 [...] Ord15 CALCIUM 9.4 mg/dL 12/27/2017 Comp Metabolic Nul896 NA 142 mEq/L 10/15/2017 Comp Metabolic Udd394 K 4.2 mEq/L 10/15/2017 Comp Metabolic Isu906 CL 107 mEq/L 10/15/2017 Comp Metabolic Nsx381 CO2 27.0 mEq/L 10/15/2017 Comp Metabolic Xju415 ANION GAP 12 10/15/2017 Comp Metabolic Nlu868 GLUCOSE 86 mg/dL 10/15/2017 Comp Metabolic Pcg196 Creat 0.6 mg/dL 10/15/2017 Comp Metabolic Mxa770 eGFR 179 ml/min/1.73m2 10/15/2017 Comp Metabolic Fnx902 BUN 13 mg/dL 10/15/2017 Comp Metabolic Bad613 B/C Ratio 22.8 Ratio 10/15/2017 Comp Metabolic Foi153 CALCIUM 9.6 mg/dL 10/15/2017 Comp Metabolic Ctu030 ALK PHOS 158 U/L 10/15/2017 Comp Metabolic Gbl919 AST(SGOT) 15 U/L 10/15/2017 Comp Metabolic Rwk841 ALT(SGPT) 29 U/L 10/15/2017 Comp Metabolic Ijy228 BILI T 0.2 mg/dL 10/15/2017 Comp Metabolic Inm920 ALBUMIN 3.5 g/dL 10/15/2017 Comp Metabolic Lbg326 TPRO 6.9 g/dL 10/15/2017 Comp Metabolic Ukl966 GLOB 3.4 g/dL 10/15/2017 Comp Metabolic Mfc625 A/G Ratio 1.1 Ratio 10/15/2017 Comp Metabolic Dns525 Osmo 283 mOsmo 10/15/2017 Cbc With Differential [...] 87.2 fl 10/15/2017 Cbc With Differential Ord2 Benton% 8.3 % 10/15/2017 Cbc With Differential Ord2 [...] 1.78 K/ul 10/15/2017 Cbc With Differential Ord2 [place] ABS# 0.5 K/ul 10/15/2017 Cbc With Differential Ord2 Eos ABS# 0.2 K/ul 10/15/2017 Cbc With Differential Ord2 Baso ABS# 0.0 K/ul 10/15/2017 Tsh Ord6 TSH (3rd IS) 2.24 uIU/mL 10/15/2017 Renal Qjw653 NA 144 mEq/L 09/17/2017 Renal Ysb281 K 3.6 mEq/L 09/17/2017 Renal Ibu995 CL 104 mEq/L 09/17/2017 Renal Wcj017 CO2 28.0 mEq/L 09/17/2017 Renal Ncd579 ANION GAP 16 09/17/2017 Renal Kqx855 Osmo 289 mOsmo 09/17/2017 Renal Pyk572 GLUCOSE 115 mg/dL 09/17/2017 Renal Wuc506 BUN 15 mg/dL 09/17/2017 Renal Ciw190 Creat 0.9 mg/dL 09/17/2017 Renal Kbq142 eGFR 100 ml/min/1.73m2 09/17/2017 Renal Erg346 B/C Ratio 16.0 Ratio 09/17/2017 Renal Euy127 CALCIUM 10.4 mg/dL 09/17/2017 Renal Yqv780 PHOS 3.9 mg/dL 09/17/2017 Renal Qid623 ALBUMIN 4.3 g/dL 09/17/2017 Magnesium Ord90 Mag [...] 28.6 pg 09/17/2017 Cbc With Differential Ord2 Benton% 9.9 % 09/17/2017 Cbc With Differential Ord2 Eos% 4.4 % 09/17/2017 Cbc With Differential Ord2 MCHC 32.4 pg 09/17/2017 Cbc With Differential Ord2 Baso% 0.2 % 09/17/2017 Cbc With Differential Ord2 PLT 332 K/ul 09/17/2017 Cbc With Differential Ord2 Neut ABS# 5.18 K/ul 09/17/2017 Cbc With Differential Ord2 RDW 14.3 % 09/17/2017 Cbc With Differential Ord2 Lymph ABS# 1.85 K/ul 09/17/2017 Cbc With Differential Ord2 [place] ABS# 0.8 K/ul 09/17/2017 Cbc With Differential Ord2 Eos ABS# 0.4 K/ul 09/17/2017 Cbc With Differential Ord2 Baso ABS# 0.0 K/ul 09/17/2017 Comp Metabolic Ung677 NA 138 mEq/L 02/04/2017 Comp Metabolic Xrc859 K 4.5 mEq/L 02/04/2017 Comp Metabolic Hbd647 CL 98 mEq/L 02/04/2017 Comp Metabolic Vzy317 CO2 30.0 mEq/L 02/04/2017 Comp Metabolic Ykd706 ANION GAP 15 02/04/2017 Comp Metabolic Sgz182 GLUCOSE 99 mg/dL 02/04/2017 Comp Metabolic Rlh544 Creat 0.6 mg/dL 02/04/2017 Comp Metabolic Ehk137 eGFR 183 ml/min/1.73m2 02/04/2017 Comp Metabolic Ocw547 BUN 11 mg/dL 02/04/2017 Comp Metabolic Svr570 B/C Ratio 19.6 Ratio 02/04/2017 Comp Metabolic Mho415 CALCIUM 9.5 mg/dL 02/04/2017 Comp Metabolic Vrf138 ALK PHOS 59 U/L 02/04/2017 Comp Metabolic Rry138 AST(SGOT) 14 U/L 02/04/2017 Comp Metabolic Urk406 ALT(SGPT) 15 U/L 02/04/2017 Comp Metabolic Ntr287 BILI T 0.3 mg/dL 02/04/2017 Comp Metabolic Sqo695 ALBUMIN 4.0 g/dL 02/04/2017 Comp Metabolic Ncw623 TPRO 7.0 g/dL 02/04/2017 Comp Metabolic Drw095 GLOB 3.0 g/dL 02/04/2017 Comp Metabolic Bqj602 A/G Ratio 1.4 Ratio 02/04/2017 Comp Metabolic Zby100 Osmo 275 mOsmo 02/04/2017 Review of Systems [...] data Encounters Encounter Performer Location Codes Date ) 26398 EST. PATIENT, LEVEL IV Diagnosis: Essential (primary) hypertension[ICD10: I10] Diagnosis: Major depressive disorder, single episode, moderate[ICD10: F32.1] Diagnosis: Muscle spasm of back[ICD10: M62.830] Diagnosis: Other headache syndrome[ICD10: G44.89] [facility], [facility] CPT-4: 95166 12/07/2017 [id number]) 24214 EST. PATIENT, LEVEL IV Diagnosis: Essential (primary) hypertension[ICD10: I10] Diagnosis: Major depressive disorder, single episode, moderate[ICD10: F32.1] Diagnosis: Pressure ulcer of contiguous site of back, buttock and hip, stage 3[ ICD10: L89.43] [facility], [facility] CPT-4: 34015 11/04/2017 [id number]) 75215 EST. 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 CPT- 4: 15938 10/14/2017 88481 EST. PATIENT, LEVEL IV Diagnosis: Umbilical hernia without obstruction or gangrene[ICD10: K42.9] Carrie Nuñez MD, [facility] CPT-4: 82251 03/23/2017 52691 EST. PATIENT, LEVEL IV Diagnosis: Other insomnia[ICD10: G47.09] Diagnosis: Essential (primary) hypertension[ICD10: I10] Diagnosis: Pain in thoracic spine[ICD10: M54.6] Diagnosis: Cervicalgia[ICD10: M54.2] Carrie Nuñez MD, [facility] CPT-4: 31510 03/04/2017 35698 EST. PATIENT, LEVEL III Diagnosis: Cervicalgia[ICD10: M54.2] Diagnosis: Pain in thoracic spine[ICD10: M54.6] Diagnosis: Muscle spasm of back[ICD10: M62.830] Carrie Nuñez MD, [facility] CPT-4: 96104 02/10/2017 68586 EST. PATIENT, LEVEL IV Diagnosis: Essential (primary) hypertension[ICD10: I10] Diagnosis: Lumbar spina bifida without hydrocephalus[ICD10: Q05.7] Carrie [facility] MD, [facility] CPT-4: 51132 12/16/2016 09650 EST. PATIENT, LEVEL IV Diagnosis: Essential (primary) hypertension[ICD10: I10] Diagnosis: Major depressive disorder, single episode, mild[ICD10: F32.0] Carrie Nuñez MD , [facility] CPT-4: 53534 09/30/2016 ([id number]) 15449 EST. PATIENT, LEVEL III Diagnosis: Bicipital tendinitis, left shoulder[ICD10: M75.22] Diagnosis: Pain in right wrist[ICD10: M25.531] Diagnosis: Pain in left wrist[ICD10: M25.532] Angi Nuñez MD, [facility] CPT-4: 13285 07/23/2016 79566 EST. PATIENT, LEVEL III Diagnosis: Pain in left shoulder[ICD10: M25.512] Diagnosis: Pain in left wrist[ICD10: M25.532] [facility] CPT-4: 40706 06/17/2016 13847 EST. 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 CPT-4: 03087 04/07/2016 Plan of Care Planned Activity Notes Codes Status Date Appointment: [facility] Raymond [facility] (30 min) Complex 05/23/2018 Visit Plan: Back pain - Headache [...] monitor symptoms. 12/07/2017 [phone] ([facility] min) Moderate 12/07/2017 Patient Education: Patient Medication Summary Completed 12/07/2017 Referral: [facility] Referral Initiated 11/09/2017 Care Plan: Referral Order SNOMED-CT : [id number] Pending 11/05/2017 Visit Plan: Hypertension - well [...] too complicated to have surgery at [facility] - we will therefore refer to [facility] [facility] Referral to Dr. Murdock for removal of Peg tube. 11/04/2017 Appointment: Anila Nuñez WPtel: [phone] [facility] (15 min) Moderate 11/04/2017 Patient Education: Patient Medication Summary Completed 11/04/2017 Appointment: Anila Nuñez WPtel: [phone] [facility] (15 min) Moderate 10/28/2017 Visit Plan: Hypertension [...] Dr. Hargrove. 10/14/2017 App[facility]ment[phone] [place] (30 min) Complex 10/14/2017 Patient Education: Patient Medication Summary Completed 10/14/2017 [facility]: [phone] [place] (30 min) Complex 09/21/2017 Referral: Jorje Harden [facility]:[phone] [facility] [place] Referral Completed 03/29/2017 Care Plan: Referral Order SNOMED-CT : [id number] Pending 03/24/2017 Visit Plan: Umbilical hernia - reducible, mildly tender to palpation - no skin or color changes - warm and dry to the touch - will refer to surgeon for evaluation - pt is to notify clinic or go to the ER for any acute changes or concerns. 03/23/2017 Appointment: [phone] [place] ([place] min) Complex 03/23/2017 Patient Education: Patient [...] concerns. 03/04/2017 Appointment: [phone] [place] ([place] min) Complex 03/04/2017 Patient Education: Patient [...] patient. 09/30/2016 Appointment: [phone] (15 min) Moderate 09/30/2016 Patient Education: Patient [...] of plan. 07/23/2016 Appointment: [phone] [place] [place] (15 min) Moderate 07/23/2016 Patient Education: [...] Carrie Raymond WPtel: [facility] (15 min) Moderate 05/06/2016 Patient Education: Patient [...] of spina bifida with hydrocephalus-sees neurologist in [place]-due for appt Kvbzxzrfpzqu-chhmjbs-zceoxmft miralax 04/07/2016 Appointment: Angi Rodriguez WPtel: [facility] 04/07/2016 Patient Education: Patient Medication Summary Completed 04/07/2016 Referral: [facility] Referral Appointment Requested Referral: Jorje Harden HPtel:[phone] [facility] Referral Appointment Confirmed Instructions Comment PT TO [...] will refer to Dr. Hargrove. OT AT [facility] TO EVALUATE AND TREAT LYMPHEDEMA [...] of spina bifida with hydrocephalus-sees neurologist in [place]-due for appt Wdmnwqyhybzo-alinlyz-dyhkrvdd miralax . Hypertension - uncontrolled - the [...] with current management. Penile ulceration - Dr. Beena has seen pt - he feels like he is too complicated to have surgery at [facility] - we will therefore refer to [facility] Referral to Dr. Murdock for removal [...]
--- NOTE | 2018-06-27 16:13 | ED Chest Pain ---
General Chief Complaint: Chest Pain Stated Complaint: CHEST PAIN Source: patient, EMS, snf records Exam Limitations: no limitations History of Present Illness Date Seen by Provider: Jun 27, 2018 Time Seen by Provider: 15:47 Initial Comments The patient presents to ER by EMS from [facility] where he has been experiencing some chest pain since about 1430, an hour prior to arrival. The pain is in the substernal region is reproducible by direct palpation. EMS and he 's had pain like this before that went away on its own. He rates it right now about a 2 out of 10. He is not taking anything for it. He did recently just get off antibiotics for a UTI. Is not having any cough or shortness of breath but when he takes deep breaths does make the pain worse. No significant history of cardiac or coronary disease. He is not having any fevers. He's having some mild nausea but no vomiting. Pain came on while the patient was sitting just having finished lunch at the dinner table. Patient has a history of spina bifida, paraplegia since , an indwelling catheter and last year had some exploratory surgery with some bowels removed and a colostomy placed. Allergies and Home Medications Allergies Coded Allergies: latex (Verified Allergy, Unknown, 03/31/17) Home Medications Acetaminophen 500 Mg Tablet, 500 MG PO HS, (Reported) Allopurinol 100 Mg Tablet, 100 MG PO DAILY, (Reported) Aspirin 325 Mg Tablet, 325 MG PO DAILY, (Reported) Cetirizine HCl 10 Mg Tablet, 10 MG PO DAILY PRN for ALLERGIES, (Reported) Diclofenac Sodium 100 Gm Gel..gram., 4 GM TP HS, (Reported) APPLY TO LOWER BACK AND BOTH SHOULDERS Diclofenac Sodium 100 Gm Gel..gram., 4 GM TP Q4H PRN for BACK/SHOULDER PAIN, ( Reported) Duloxetine HCl 30 Mg Capsule.dr, 90 MG PO DAILY, (Reported) TAKES 3 (30MG) CAPSULES Fluticasone Propionate 16 Gm Aubrey.susp, 1 SPRAY NS HS, (Reported) Hydrocodone/Acetaminophen 1 Each Tablet, 1-2 TAB PO Q6H PRN for PAIN-MODERATE, ( Reported) L. Acidophilus/L.bulgaricus 1 Each Tablet, 1 TAB PO BID, (Reported) Levetiracetam 500 Mg Tablet, 1,500 MG PO BID, (Reported) TAKES 3 (500MG) TABLETS Lidocaine HCl 76.5 Gm Cream..g., TP TID, (Reported) APPLY TO BACK FROM SHOULDERS TO TOP OF BUTTOCKS Metoclopramide HCl 10 Mg Tablet, 10 MG PO QID, (Reported) Metoprolol Tartrate 25 Mg Tablet, 12.5 MG PO BID, (Reported) TAKES 1/2 (25MG) TABLET NOTIFY PCP IF <80/50 OR >180/110 OR PULSE <50 OR > 110 Multivitamin 1 Each Tablet, 1 TAB PO DAILY, (Reported) Naproxen 500 Mg Tablet, 500 MG PO BID Prescribed by: ANDREEA PRATT on 06/27/18 1642 Nystatin 15 Gm Cream..g., TP BID, (Reported) APPLY TO BUTTOCKS/GROIN AREA Olopatadine HCl 2.5 Ml Drops, 1 DROP OU DAILY PRN for DRY EYES, (Reported) Ondansetron HCl 4 Mg Tab, 4 MG PO Q8H PRN for NAUSEA/VOMITING-1ST LINE, ( Reported) Pantoprazole Sodium 40 Mg Tablet.dr, 40 MG PO DAILY, (Reported) Phenyleph/Mineral Oil/Petrolat 28 Gm Oint.appl, RC Q6H PRN for HEMORRHOIDS, ( Reported) Prochlorperazine 25 Mg Supp.rect, 25 MG RC Q12H PRN for NAUSEA/VOMITING-4TH LINE , (Reported) Tacrolimus 30 Gm Oint...g., TP BID, (Reported) APPLY TO MIDLINE ABDOMINAL WOUND Zinc Oxide 57 Gm Oint...g., TP BID, (Reported) APPLY TO BUTTOCKS AND JAJA WOUND Patient Home Medication List Home Medication List Reviewed: Yes Review of Systems Review of Systems Constitutional: No chills, No diaphoresis EENTM: No Blurred Vision, No Double Vision Respiratory: Denies Cough, Denies Orthopnea Cardiovascular: See HPI, Chest Pain; Denies Lightheadedness Gastrointestinal: Denies Abdomen Distended, Denies Abdominal Pain, Denies Constipated, Denies Diarrhea; Nausea; Denies Poor Fluid Intake, Denies Vomiting Musculoskeletal: No back pain, No joint pain Skin: No pruritus, No rash Psychiatric/Neurological: Denies Headache, Denies Numbness, Denies Paresthesia Past Vddhoom-Lbpric-[id number] Hx Patient Social History Alcohol Use: Denies Use Recreational Drug Use: No Smoking Status: Never a Smoker Recent Foreign Travel: No Contact w/Someone Who Travel: No Immunizations Up To Date Tetanus Booster (TDap): Unknown PED Vaccines UTD: Yes Date of Influenza Vaccine: Feb 14, 2018 Seasonal Allergies Seasonal Allergies: No Past Medical History Surgeries: Yes (ileostomy, colostomy ) Abdominal, Brain Shunt Respiratory: Yes Asthma Cardiac: Yes Hypertension Neurological: Yes (spina bifida, [employer]IVE shunt) Genitourinary: Yes Gastrointestinal: Yes Abdominal Hernia Musculoskeletal: Yes Endocrine: Yes Diabetes, Non-Insulin dep HEENT: No Cancer: No Psychosocial: Yes Depression Family Medical History Other Conditions/Hx Physical Exam Vital Signs Vital Signs - First Documented 06/27/18 15:50 Temp 96.4 Pulse 106 Resp 22 B/P (MAP) 148/103 (118) Pulse Ox 97 O2 Delivery Room Air Capillary Refill : Height, Weight, BMI Height: 5'2.00" Weight: 297lbs. 0.0oz. 134.115844we; BMI Method:Stated General Appearance: No Apparent Distress, WD/WN, Obese HEENT: PERRL/EOMI, Pharynx Normal, Moist Mucous Membranes Neck: Full Range of Motion, Normal Inspection Respiratory: Chest Non Tender, Lungs Clear, Normal Breath Sounds, No Accessory Muscle Use, No Respiratory Distress Cardiovascular: Regular Rate, Rhythm, No Edema, Normal Peripheral Pulses Gastrointestinal: Normal Bowel Sounds, Non Tender, Soft Extremity: Normal Capillary Refill, Normal Inspection Neurologic/Psychiatric: Alert, Oriented x3, Other (baseline paraplegia) Progress/Results/Core Measures Results/Orders Lab Results Laboratory Tests Test 06/27/18 14:13 06/27/18 16:00 Range/Units White Blood Count 9.3 4.3-11.0 10^3/uL Red Blood Count 4.53 4.35-5.85 10^6/uL Hemoglobin 12.5 L 13.3-17.7 G/DL Hematocrit 38 L 40-54 % Mean Corpuscular Volume 84 80-99 FL Mean Corpuscular Hemoglobin 28 25-34 PG Mean Corpuscular Hemoglobin Concent 33 32-36 G/DL Red Cell Distribution Width 13.9 10.0-14.5 % Platelet Count 253 130-400 10^3/uL Mean Platelet Volume 8.9 7.4-10.4 FL Neutrophils (%) (Auto) 75 42-75 % Lymphocytes (%) (Auto) 16 12-44 % Monocytes (%) (Auto) 8 0-12 % Eosinophils (%) (Auto) 2 0-10 % Basophils (%) (Auto) 0 0-10 % Neutrophils # (Auto) 7.0 1.8-7.8 X 10^3 Lymphocytes # (Auto) 1.4 1.0-4.0 X 10^3 Monocytes # (Auto) 0.7 0.0-1.0 X 10^3 Eosinophils # (Auto) 0.2 0.0-0.3 10^3/uL Basophils # (Auto) 0.0 0.0-0.1 10^3/uL Prothrombin Time 12.2 12.2-14.7 SEC INR Comment 0.9 0.8-1.4 Activated Partial Thromboplast Time 31 24-35 SEC Sodium Level 139 135-145 MMOL/L Potassium Level 4.4 3.6-5.0 MMOL/L Chloride Level 107 98-107 MMOL/L Carbon Dioxide Level 21 21-32 MMOL/L Anion Gap 11 5-14 MMOL/L Blood Urea Nitrogen 9 7-18 MG/DL Creatinine 0.79 0.60-1.30 MG/DL Estimat Glomerular Filtration Rate > 60 BUN/Creatinine Ratio 11 Glucose Level 99 70-105 MG/DL Calcium Level 9.4 8.5-10.1 MG/DL Corrected Calcium 9.3 8.5-10.1 MG/DL Magnesium Level 2.3 1.8-2.4 MG/DL Total Bilirubin 0.2 0.1-1.0 MG/DL Aspartate Amino Transf (AST/SGOT) 21 5-34 U/L Alanine Aminotransferase (ALT/SGPT) 36 0-55 U/L Alkaline Phosphatase 103 40-136 U/L Myoglobin 31.2 10.0-92.0 NG/ML Troponin I < 0.028 <0.028 NG/ML Total Protein 7.5 6.4-8.2 GM/DL Albumin 4.1 3.2-4.5 GM/DL Lipase 31 8-78 U/L Urine Color YELLOW Urine Clarity SLIGHTLY CLOUDY Urine pH 6.5 5-9 Urine Specific Healy 1.005 L 1.016-1.022 Urine Protein NEGATIVE NEGATIVE Urine Glucose (UA) NEGATIVE NEGATIVE Urine Ketones NEGATIVE NEGATIVE Urine Nitrite NEGATIVE NEGATIVE Urine Bilirubin NEGATIVE NEGATIVE Urine Urobilinogen NORMAL NORMAL MG/DL Urine Leukocyte Esterase 2+ H NEGATIVE Urine RBC (Auto) 3+ H NEGATIVE Urine RBC 0-2 /HPF Urine WBC 0-2 /HPF Urine Squamous Epithelial Cells NONE /HPF Urine Crystals NONE /LPF Urine Bacteria NEGATIVE /HPF Urine Casts NONE /LPF Urine Mucus NEGATIVE /LPF Urine Culture Indicated NO My Orders Orders - ANDREEA PRATT Saline Lock/Iv-Start (06/27/18 16:00) Cbc With Automated Diff (06/27/18 16:00) Magnesium (06/27/18 16:00) Chest 1 View, Ap/Pa Only (06/27/18 16:00) Ekg Tracing (06/27/18 16:00) Cardiac Profile 1 (06/27/18 16:00) Comprehensive Metabolic Panel (06/27/18 16:00) Myoglobin Serum (06/27/18 16:00) Protime With Inr (06/27/18 16:00) Partial Thromboplastin Time (06/27/18 16:00) O2 (06/27/18 16:00) Monitor-Rhythm Ecg Trace Only (06/27/18 16:00) Lipid Panel (06/28/18 06:00) Aspirin Chewable Tablet (Baby Aspirin Ch (06/27/18 16:00) Saline Lock/Iv-Start (06/27/18 16:00) Lipase (06/27/18 16:00) Ua Culture If Indicated (06/27/18 16:00) Ketorolac Injection (Toradol Injection) (06/27/18 16:00) Medications Given in ED Current Medications Medications Dose Ordered Sig/Sridevi Route Start Time Stop Time Status Last Admin Dose Admin Aspirin 324 mg ONCE ONCE PO 06/27/18 16:00 06/27/18 16:07 DC 06/27/18 16:35 324 MG Ketorolac Tromethamine 30 mg ONCE ONCE IVP 06/27/18 16:00 06/27/18 16:07 DC 06/27/18 16:35 30 MG Vital Signs/I&O 06/27/18 15:50 Temp 96.4 Pulse 106 Resp 22 B/P (MAP) 148/103 (118) Pulse Ox 97 O2 Delivery Room Air Progress Progress Note : Time: 16:05 Progress Note Patient presents for his chest pain which is reproducible to direct palpation. He has no history of coronary disease. He is no significant risk factors outside of his high blood pressure. We'll obtain an EKG troponin as well as a chest x-ray since however this sounds like costochondritis. We'll also check a urinalysis. ED ACS -2 points. Low risk by the EDACS Score. If the patient also has: (1) EKG without new ischemic changes and (2) negative initial and 2-hour troponins, then this patient is safe for discharge to early outpatient follow-up investigation (or proceed to earlier inpatient testing). If EKG with ischemic changes or positive troponin, they are not low risk and require normal risk stratification. Initial ECG Impression Date: Jun 27, 2018 Initial ECG Impression Time: 15:50 Initial ECG Rate: 94 Initial ECG Rhythm: Normal Sinus Initial ECG Intervals: Normal Initial ECG Impression: Normal Initial ECG Comparisson: Unchanged Comment No ST elevation or depression. Diagnostic Imaging Diagonstic Imaging: Xray Plain Films/CT/US/NM/MRI: chest (1v) Comments [facility] [place], [place] NAME: CHRISTEN [facility]SON [facility] REC#: [id number] PT STATUS: REG ER : 1985 PHYSICIAN: ANDREEA PRATT MD ADMIT DATE: 06/27/18/ER Draft Date of Exam:06/27/18 CHEST 1 VIEW, AP/PA ONLY INDICATION: Chest pain. Frontal chest obtained at 4:13 p.m. FINDINGS: Heart and mediastinal silhouette are normal in appearance. The lungs are clear. There is no pneumothorax or pleural fluid. Shunt catheter is seen over the right chest and appears to stop at the level of the right clavicle. IMPRESSION: No acute process in the chest. Dictated on workstation # [id number] Dict: 06/27/18 1618 Trans: 06/27/18 1622 [id number] Interpreted by: MARY JANE THOMAS MD Electronically signed by: Reviewed: Reviewed by Me Departure Impression Primary Impression: Costochondritis, acute Disposition: 01 HOME, SELF-CARE Condition: Stable Departure-Patient Inst. Decision time for Depature: 16:52 Referrals: MIRIAM SIERRA MD (PCP/Family) Primary Care Physician Patient Instructions: Costochondritis (DC) Add. Discharge Instructions: Take the Naprosyn one capsule twice a day with food for the next 2 weeks. If you 're not seeing some improvement in your chest pain symptoms follow-up with the primary care provider for further evaluation and management of your chest wall pain. Use topical creams such as your diclofenac or you can use [id number] creams like icy hot, Biofreeze. Heating pads can be helpful. Use Tylenol 1000 mg every 8 hours as necessary for breakthrough pain. All discharge instructions reviewed with patient and/or family. Voiced understanding. Scripts Naproxen (Naprosyn) 500 Mg Tablet 500 MG PO BID for 14 Days, #28 TAB 0 Refills Prov: ANDREEA PRATT 06/27/18 ANDREEA PRATT Jun 27, 2018 16:13
[2018-06-27 16:14] LABS: BILIRUBIN,URINE NEGATIVE (NEGATIVE); CLARITY,URINE SLIGHTLY CLOUDY; COLOR,URINE YELLOW; GLUCOSE, URINE (UA) NEGATIVE (NEGATIVE); KETONES,URINE NEGATIVE (NEGATIVE); LEUKOCYTE ESTERASE ,URINE 2+ (NEGATIVE); NITRITE,URINE NEGATIVE (NEGATIVE); PH,URINE 6.5 (5-9); PROTEIN,URINE NEGATIVE (NEGATIVE); UROBILINOGEN,URINE NORMAL (NORMAL)
--- OUTSIDE RECORDS SUMMARY | 2018-06-27 16:15 | XMS REPORT | Continuity of Care Document ---
Author Author [facility] Organization [facility] Address Unknown Phone Unavailable Allergies Active Description Code Type Severity Reaction Onset Reported/Identified Relationship to Patient Clinical Status Yes LATEX Drug Allergy N/A N/A Yes LATEX Drug Allergy N/A N/A Yes latex [id number] Drug Allergy Severe HIVES 03/14/2012 Yes latex [id number] Drug Allergy Unknown N/A 03/31/2017 Medications Medication Packaging Start Date Stop Date Route Dosage Sig HYDROCHLOROTHIAZIDE 12/20/2012 12/05/2014 3030 CIPROFLOXACIN HCL 12/20/2012 12/05/2014 1414 NAPROXEN 01/10/2013 6060 AMOXICILLIN ORAL 08/16/2014 08/26/2014 ORAL 4040 twice daily TRAMADOL HCL ORAL 12/05/2014 12/15/2014 ORAL 4040 4 times a day Problems Date Dx Coded Attending Type Code Diagnosis Diagnosed By 04/15/1633 JOHNNY GENAO AUTOMATION DESIGN ENGINEER Ot I89.0 LYMPHEDEMA, NOT ELSEWHERE CLASSIFIED 04/23/2016 JOHNNY GENAO AUTOMATION DESIGN ENGINEER Ot I89.0 LYMPHEDEMA, NOT ELSEWHERE CLASSIFIED 04/23/2016 JOHNNY GENAO AUTOMATION DESIGN ENGINEER Ot I89.0 LYMPHEDEMA, NOT ELSEWHERE CLASSIFIED 05/12/2016 JOHNNY GENAO AUTOMATION DESIGN ENGINEER Ot I89.0 LYMPHEDEMA, NOT ELSEWHERE CLASSIFIED 05/13/2016 JOHNNY GENAO AUTOMATION DESIGN ENGINEER Ot I89.0 LYMPHEDEMA, NOT ELSEWHERE CLASSIFIED 05/14/2016 JOHNNY GENAO AUTOMATION DESIGN ENGINEER Ot I89.0 LYMPHEDEMA, NOT ELSEWHERE CLASSIFIED 06/10/2016 JOHNNY GENAO AUTOMATION DESIGN ENGINEER Ot I89.0 LYMPHEDEMA, NOT ELSEWHERE CLASSIFIED 07/01/2016 JOHNNY GENAO AUTOMATION DESIGN ENGINEER Ot I89.0 LYMPHEDEMA, NOT ELSEWHERE CLASSIFIED 02/18/2017 [...] Ot G82.20 PARAPLEGIA, UNSPECIFIED 10/25/2017 THELMA MENDOZA BEVERAGE HOST Ot L89.303 PRESSURE ULCER OF UNSPECIFIED BUTTOCK, S 10/25/2017 THELMA MENDOZA BEVERAGE HOST Ot Q05.9 SPINA BIFIDA, UNSPECIFIED 10/28/2017 WILLIAM PARKS MD Ot L89.93 PRESSURE ULCER OF UNSPECIFIED SITE, STAG 10/28/2017 WILLIAM PARKS MD Ot L98.492 NON-PRS CHRONIC ULCER OF SKIN OF SITES W 10/28/2017 WILLIAM PARKS MD Ot Q05.9 SPINA BIFIDA, UNSPECIFIED 10/28/2017 WILLIAM PARKS MD Ot T81.31XA DISRUPTION OF EXTERNAL OPERATION (SURGIC 11/04/2017 THELMA MENDOZA BEVERAGE HOST Ot L89.93 PRESSURE ULCER OF UNSPECIFIED SITE, STAG 11/04/2017 THELMA MENDOZA BEVERAGE HOST Ot L98.492 NON-PRS CHRONIC ULCER OF SKIN OF SITES W 11/04/2017 THELMA MENDOZA APRN Ot Q05.9 SPINA BIFIDA, UNSPECIFIED 11/04/2017 THELMA MENDOZA BEVERAGE HOST Ot T81.31XD DISRUPTION OF EXTERNAL OPERATION (SURGIC 11/10/2017 THELMA MENDOZA BEVERAGE HOST Ot G82.20 PARAPLEGIA, UNSPECIFIED 11/10/2017 THELMA MENDOZA BEVERAGE HOST Ot L89.303 PRESSURE ULCER OF UNSPECIFIED BUTTOCK, S 11/10/2017 THELMA MENDOZA BEVERAGE HOST Ot Q05.9 SPINA BIFIDA, UNSPECIFIED 11/10/2017 WILLIAM PARKS MD Ot L89.93 PRESSURE ULCER OF UNSPECIFIED SITE, STAG 11/10/2017 WILLIAM PARKS MD Ot L98.492 NON-PRS CHRONIC ULCER OF SKIN OF SITES W 11/10/2017 WILLIAM PARKS MD Ot Q05.9 SPINA BIFIDA, UNSPECIFIED 11/10/2017 WILLIAM PARKS MD Ot T81.31XA DISRUPTION OF EXTERNAL OPERATION (SURGIC 11/15/2017 THELMA MENDOZA BEVERAGE HOST Ot G82.20 PARAPLEGIA, UNSPECIFIED 11/15/2017 THELMA MENDOZA BEVERAGE HOST Ot L89.303 PRESSURE ULCER OF UNSPECIFIED BUTTOCK, S 11/15/2017 THELMA MENDOZA BEVERAGE HOST Ot Q05.9 SPINA BIFIDA, UNSPECIFIED 11/18/2017 WILLIAM PARKS MD Ot L89.93 PRESSURE ULCER OF UNSPECIFIED SITE, STAG 11/18/2017 WILLIAM PARKS MD Ot L98.492 NON-PRS CHRONIC ULCER OF SKIN OF SITES W 11/18/2017 WILLIAM PARKS MD Ot Q05.9 SPINA BIFIDA, UNSPECIFIED 11/18/2017 WILLIAM PARKS MD Ot T81.31XA DISRUPTION OF EXTERNAL OPERATION (SURGIC 11/19/2017 THELMA MENDOZA BEVERAGE HOST Ot L89.93 PRESSURE ULCER OF UNSPECIFIED SITE, STAG 11/19/2017 THELMA MENDOZA BEVERAGE HOST Ot L98.492 NON-PRS CHRONIC ULCER OF SKIN OF SITES W 11/19/2017 THELMA MENDOZA BEVERAGE HOST Ot Q05.9 SPINA BIFIDA, UNSPECIFIED 11/19/2017 THELMA MENDOZA BEVERAGE HOST Ot T81.31XA DISRUPTION OF EXTERNAL OPERATION (SURGIC 11/23/2017 WILLIAM PARKS MD Ot L89.93 PRESSURE ULCER OF UNSPECIFIED SITE, STAG 11/23/2017 WILLIAM PARKS MD Ot L98.492 NON-PRS CHRONIC ULCER OF SKIN OF SITES W 11/23/2017 WILLIAM PARKS MD Ot Q05.9 SPINA BIFIDA, UNSPECIFIED 11/23/2017 WILLIAM PARKS MD Ot T81.31XA DISRUPTION OF EXTERNAL OPERATION (SURGIC 11/23/2017 THELMA MENDOZA BEVERAGE HOST Ot L89.93 PRESSURE ULCER OF UNSPECIFIED SITE, STAG 11/23/2017 THELMA MENDOZA R BEVERAGE HOST Ot L98.492 NON-PRS CHRONIC ULCER OF SKIN OF SITES W 11/23/2017 THLEMA MENDOZA BEVERAGE HOST Ot Q05.9 SPINA BIFIDA, UNSPECIFIED 11/23/2017 THELMA MENDOZA BEVERAGE HOST Ot T81.31XD DISRUPTION OF EXTERNAL OPERATION (SURGIC [...] EXTERNAL OPERATION (SURGIC 12/01/2017 THELMA MENDOZA R BEVERAGE HOST Ot L89.93 PRESSURE ULCER OF UNSPECIFIED SITE, STAG 12/01/2017 THELMA MENDOZA BEVERAGE HOST Ot L98.492 NON-PRS CHRONIC ULCER OF SKIN OF SITES W 12/01/2017 THELMA MENDOZA BEVERAGE HOST Ot Q05.9 SPINA BIFIDA, UNSPECIFIED 12/01/2017 THELMA MENDOZA BEVERAGE HOST Ot T81.31XD DISRUPTION OF EXTERNAL OPERATION (SURGIC [...] EXTERNAL OPERATION (SURGIC 12/08/2017 THELMA MENDOZA R BEVERAGE HOST Ot L89.93 PRESSURE ULCER OF UNSPECIFIED SITE, STAG 12/08/2017 THELMA MENDOZA BEVERAGE HOST Ot L98.492 NON-PRS CHRONIC ULCER OF SKIN OF SITES W 12/08/2017 THELMA MENDOZA BEVERAGE HOST Ot Q05.9 SPINA BIFIDA, UNSPECIFIED 12/08/2017 THELMA MENDOZA BEVERAGE HOST Ot T81.31XA DISRUPTION OF EXTERNAL OPERATION (SURGIC 12/08/2017 KELLY, THELMA R BEVERAGE HOST Ot L98.492 NON-PRS CHRONIC ULCER OF SKIN OF SITES W 12/08/2017 KELLY, THELMA R BEVERAGE HOST Ot Q05.9 SPINA BIFIDA, UNSPECIFIED 12/08/2017 KELLY, THELMA R BEVERAGE HOST Ot T81.31XA DISRUPTION OF EXTERNAL OPERATION (SURGIC 12/14/2017 KELLY THELMA R BEVERAGE HOST Ot L89.93 PRESSURE ULCER OF UNSPECIFIED SITE, STAG 12/14/2017 KELLY THELMA R BEVERAGE HOST Ot L98.492 NON-PRS CHRONIC ULCER OF SKIN OF SITES W 12/14/2017 KELLY, THELMA R BEVERAGE HOST Ot Q05.9 SPINA BIFIDA, UNSPECIFIED 12/14/2017 KELLY, THELMA R BEVERAGE HOST Ot T81.31XA DISRUPTION OF EXTERNAL OPERATION (SURGIC 01/04/2018 KELLY THELMA R BEVERAGE HOST Ot L98.492 NON-PRS CHRONIC ULCER OF SKIN OF SITES W 01/04/2018 KELLY, THELMA R BEVERAGE HOST Ot Q05.9 SPINA BIFIDA, UNSPECIFIED 01/04/2018 KELLY, THELMA R BEVERAGE HOST Ot T81.31XA DISRUPTION OF EXTERNAL OPERATION (SURGIC 01/04/2018 KELLY THELMA R BEVERAGE HOST Ot L98.492 NON-PRS CHRONIC ULCER OF SKIN OF SITES W 01/04/2018 KELLY, THELMA R BEVERAGE HOST Ot Q05.9 SPINA BIFIDA, UNSPECIFIED 01/04/2018 KELLY, THELMA R BEVERAGE HOST Ot T81.31XA DISRUPTION OF EXTERNAL OPERATION (SURGIC 01/06/2018 KELLY THELMA R BEVERAGE HOST Ot L98.492 NON-PRS CHRONIC ULCER OF SKIN OF SITES W 01/06/2018 KELLY, THELMA R BEVERAGE HOST Ot Q05.9 SPINA BIFIDA, UNSPECIFIED 01/06/2018 KELLY, THELMA R BEVERAGE HOST Ot T81.31XA DISRUPTION OF EXTERNAL OPERATION (SURGIC [...] Q05.9 SPINA BIFIDA, UNSPECIFIED 01/11/2018 THELMA MENDOZA BEVERAGE HOST Ot T81.31XA DISRUPTION OF EXTERNAL OPERATION (SURGIC [...] OF EXTERNAL OPERATION (SURGIC 01/14/2018 THELMA MENDOZA BEVERAGE HOST Ot L98.492 NON-PRS CHRONIC ULCER OF SKIN [...] SKIN OF SITES W 01/26/2018 THELMA MENDOZA BEVERAGE HOST Ot Q05.9 SPINA BIFIDA, UNSPECIFIED 01/26/2018 KELLYTHELMA R BEVERAGE HOST Ot T81.31XA DISRUPTION OF EXTERNAL OPERATION (SURGIC 02/03/2018 Ot L98.492 NON-PRS CHRONIC ULCER OF SKIN OF SITES W 02/03/2018 Ot Q05.9 SPINA BIFIDA , UNSPECIFIED 02/03/2018 Ot T81.31XA DISRUPTION OF EXTERNAL OPERATION (SURGIC 02/03/2018 KELLY THELMA R BEVERAGE HOST Ot L98.492 NON-PRS CHRONIC ULCER OF SKIN OF SITES W 02/03/2018 KELLY THELMA R BEVERAGE HOST Ot Q05.9 SPINA BIFIDA, UNSPECIFIED 02/03/2018 KELLY THELMA R BEVERAGE HOST Ot T81.31XA DISRUPTION OF EXTERNAL OPERATION (SURGIC 02/04/2018 THELMA MENDOZA BEVERAGE HOST Ot L98.492 NON-PRS CHRONIC ULCER OF SKIN OF SITES W 02/04/2018 THELMA MENDOZA BEVERAGE HOST Ot Q05.9 SPINA BIFIDA, UNSPECIFIED 02/04/2018 KELLY THELMA R BEVERAGE HOST Ot T81.31XA DISRUPTION OF EXTERNAL OPERATION (SURGIC 02/07/2018 KELLY THELMA R BEVERAGE HOST Ot 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, 02/07/2018 THELMA MENDOZA BEVERAGE HOST Ot L98.492 NON-PRS CHRONIC ULCER OF SKIN OF SITES W 02/07/2018 THELMA MENDOZA BEVERAGE HOST Ot T81.31XA DISRUPTION OF EXTERNAL OPERATION (SURGIC 02/07/2018 THELMA MENDOZA BEVERAGE HOST Ot Z05.9 OBS EVAL OF NB FOR UNSP SUSPECTED COND 02/08/2018 Ot L98.492 NON-PRS CHRONIC ULCER OF SKIN OF SITES W 02/08/2018 Ot Q05.9 SPINA BIFIDA , UNSPECIFIED 02/08/2018 Ot T81.31XA DISRUPTION OF EXTERNAL OPERATION (SURGIC 02/08/2018 THELMA MENDOZA R BEVERAGE HOST Ot L98.492 NON-PRS CHRONIC ULCER OF SKIN OF SITES W 02/08/2018 THELMA MENDOZA R BEVERAGE HOST Ot Q05.9 SPINA BIFIDA, UNSPECIFIED 02/08/2018 KELLYTHELMA R BEVERAGE HOST Ot T81.31XA DISRUPTION OF EXTERNAL OPERATION (SURGIC 02/08/2018 THELMA MENDOZA BEVERAGE HOST Ot L98.492 NON-PRS CHRONIC ULCER OF SKIN OF SITES W 02/08/2018 THELMA MENDOZA BEVERAGE HOST Ot Q05.9 SPINA BIFIDA, UNSPECIFIED 02/08/2018 THELMA MENDOZA BEVERAGE HOST Ot T81.31XA DISRUPTION OF EXTERNAL OPERATION (SURGIC 02/09/2018 WILLIAM PARKS MD Ot 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, 02/09/2018 WILLIAM PARKS MD Ot L98.492 NON-PRS CHRONIC ULCER OF SKIN OF SITES W 02/09/2018 WILLIAM PARKS MD Ot Q05.9 SPINA BIFIDA, UNSPECIFIED 02/09/2018 WILLIAM PARKS MD Ot T81.31XA DISRUPTION OF EXTERNAL OPERATION (SURGIC 02/10/2018 THELMA MENDOZA BEVERAGE HOST Ot 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, 02/10/2018 THELMA MENDOZA BEVERAGE HOST Ot L98.492 NON-PRS CHRONIC ULCER OF SKIN OF SITES W 02/10/2018 THELMA MENDOZA BEVERAGE HOST Ot Q05.9 SPINA BIFIDA, UNSPECIFIED 02/10/2018 KELLY THELMA R BEVERAGE HOST Ot T81.31XA DISRUPTION OF EXTERNAL OPERATION (SURGIC 02/11/2018 THELMA MENDOZA BEVERAGE HOST Ot 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, 02/11/2018 THELMA MENDOZA BEVERAGE HOST Ot L98.492 NON-PRS CHRONIC ULCER OF SKIN OF SITES W 02/11/2018 KELLY THELMA R BEVERAGE HOST Ot T81.31XA DISRUPTION OF EXTERNAL OPERATION (SURGIC [...] EXTERNAL OPERATION (SURGIC 02/18/2018 KELLY, THELMA R BEVERAGE HOST Ot 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, 02/18/2018 KELLY, THELMA R BEVERAGE HOST Ot L98.492 NON-PRS CHRONIC ULCER OF SKIN OF SITES W 02/18/2018 KELLY, THELMA R BEVERAGE HOST Ot Q05.9 SPINA BIFIDA, UNSPECIFIED 02/18/2018 KELLY, THELMA R BEVERAGE HOST Ot T81.31XA DISRUPTION OF EXTERNAL OPERATION (SURGIC 03/01/2018 KELLY, THELMA R BEVERAGE HOST Ot 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, 03/01/2018 KELLY, THELMA R BEVERAGE HOST Ot L98.492 NON-PRS CHRONIC ULCER OF SKIN OF SITES W 03/01/2018 KELLY, THELMA R BEVERAGE HOST Ot T81.31XA DISRUPTION OF EXTERNAL OPERATION (SURGIC 03/01/2018 KELLY, THELMA R BEVERAGE HOST Ot 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, 03/01/2018 KELLY THELMA R BEVERAGE HOST Ot L98.492 NON-PRS CHRONIC ULCER OF SKIN OF SITES W 03/01/2018 KELLY THELMA R BEVERAGE HOST Ot Q05.9 SPINA BIFIDA, UNSPECIFIED 03/01/2018 KELLY, THELMA R BEVERAGE HOST Ot T81.31XA DISRUPTION OF EXTERNAL OPERATION (SURGIC [...] EXTERNAL OPERATION (SURGIC 03/07/2018 KELLY, THELMA R BEVERAGE HOST Ot 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, 03/07/2018 KELLY THELMA R BEVERAGE HOST Ot L98.492 NON-PRS CHRONIC ULCER OF SKIN OF SITES W 03/07/2018 KELLY, THELMA R BEVERAGE HOST Ot T81.31XA DISRUPTION OF EXTERNAL OPERATION (SURGIC 03/07/2018 KELLY, THELMA R BEVERAGE HOST Ot 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, 03/07/2018 KELLY THELMA R BEVERAGE HOST Ot L98.492 NON-PRS CHRONIC ULCER OF SKIN OF SITES W 03/07/2018 KELLY, THELMA R BEVERAGE HOST Ot Q05.9 SPINA BIFIDA, UNSPECIFIED 03/07/2018 KELLY, THELMA R BEVERAGE HOST Ot T81.31XA DISRUPTION OF EXTERNAL OPERATION (SURGIC 03/10/2018 KELLY, THELMA R BEVERAGE HOST Ot E11.622 TYPE 2 DIABETES MELLITUS WITH OTHER SKIN 03/10/2018 KELLY, THELMA R BEVERAGE HOST Ot L88 PYODERMA GANGRENOSUM 03/10/2018 KELLY THELMA R BEVERAGE HOST Ot L98.492 NON-PRS CHRONIC ULCER OF SKIN OF SITES W 03/10/2018 KELLY, THELMA R BEVERAGE HOST Ot Q05.9 SPINA BIFIDA, UNSPECIFIED 03/10/2018 KELLY, THELMA R BEVERAGE HOST Ot T81.31XA DISRUPTION OF EXTERNAL OPERATION (SURGIC 03/15/2018 KELLY THELMA R BEVERAGE HOST Ot 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, 03/15/2018 KELLY THELMA R BEVERAGE HOST Ot L98.492 NON-PRS CHRONIC ULCER OF SKIN OF SITES W 03/15/2018 KELLY THELMA R BEVERAGE HOST Ot Q05.9 SPINA BIFIDA, UNSPECIFIED 03/15/2018 KELLY, THELMA R BEVERAGE HOST Ot T81.31XA DISRUPTION OF EXTERNAL OPERATION (SURGIC 03/16/2018 KELLY, THELMA R BEVERAGE HOST Ot E11.622 TYPE 2 DIABETES MELLITUS WITH OTHER SKIN 03/16/2018 KELLY, THELMA R BEVERAGE HOST Ot L88 PYODERMA GANGRENOSUM 03/16/2018 KELLY, THELMA R BEVERAGE HOST Ot L98.492 NON-PRS CHRONIC ULCER OF SKIN OF SITES W 03/16/2018 KELLY, THELMA R BEVERAGE HOST Ot Q05.9 SPINA BIFIDA, UNSPECIFIED 03/16/2018 KELLY, THELMA R BEVERAGE HOST Ot T81.31XA DISRUPTION OF EXTERNAL OPERATION (SURGIC 03/23/2018 KELLY THELMA R BEVERAGE HOST Ot E11.622 TYPE 2 DIABETES MELLITUS WITH OTHER SKIN 03/23/2018 KELLY, THELMA R BEVERAGE HOST Ot L88 PYODERMA GANGRENOSUM 03/23/2018 KELLY THELMA R BEVERAGE HOST Ot L98.492 NON-PRS CHRONIC ULCER OF SKIN OF SITES W 03/23/2018 KELLY THELMA R BEVERAGE HOST Ot Q05.9 SPINA BIFIDA, UNSPECIFIED 03/23/2018 KELLY THELMA R BEVERAGE HOST Ot T81.31XA DISRUPTION OF EXTERNAL OPERATION (SURGIC 03/25/2018 WILLIAM PARKS MD Ot E11.622 TYPE 2 DIABETES MELLITUS WITH OTHER SKIN 03/25/2018 WILLIAM PARKS MD, Ot L98.492 NON-PRS CHRONIC ULCER OF SKIN OF SITES W 03/25/2018 WILLIAM PARKS MD Ot Q05.9 SPINA BIFIDA, UNSPECIFIED 03/25/2018 WILLIAM PARKS MD Ot T81.31XA DISRUPTION OF EXTERNAL OPERATION (SURGIC 03/31/2018 KELLY THELMA R BEVERAGE HOST Ot E11.622 TYPE 2 DIABETES MELLITUS WITH OTHER SKIN 03/31/2018 KELLY THELMA R BEVERAGE HOST Ot L88 PYODERMA GANGRENOSUM 03/31/2018 KELLY THELMA R BEVERAGE HOST Ot L98.492 NON-PRS CHRONIC ULCER OF SKIN OF SITES W 03/31/2018 KELLY THELMA R BEVERAGE HOST Ot Q05.9 SPINA BIFIDA, UNSPECIFIED 03/31/2018 KELLY THELMA R BEVERAGE HOST Ot T81.31XA DISRUPTION OF EXTERNAL OPERATION (SURGIC 03/31/2018 KELLY THELMA R BEVERAGE HOST Ot E11.622 TYPE 2 DIABETES MELLITUS WITH OTHER SKIN 03/31/2018 KELLY THELMA R BEVERAGE HOST Ot L88 PYODERMA GANGRENOSUM 03/31/2018 KELLY THELMA R BEVERAGE HOST Ot L98.492 NON-PRS CHRONIC ULCER OF SKIN OF SITES W 03/31/2018 KELLY THELMA R BEVERAGE HOST Ot T81.31XA DISRUPTION OF EXTERNAL OPERATION (SURGIC 03/31/2018 KELLY THELMA R BEVERAGE HOST Ot Z05.9 OBS EVAL OF NB FOR UNSP SUSPECTED COND 04/01/2018 WILLIAM PARKS MD Ot E11.622 TYPE 2 DIABETES MELLITUS WITH OTHER SKIN 04/01/2018 CHARLY MD, WILLIAM G Ot L98.492 NON-PRS CHRONIC ULCER OF SKIN OF SITES W 04/01/2018 WILLIAM PARKS MD Ot Q05.9 SPINA BIFIDA, UNSPECIFIED 04/01/2018 WILLIAM PARKS MD Ot T81.31XA DISRUPTION OF EXTERNAL OPERATION (SURGIC 04/02/2018 KELLY, THELMA R BEVERAGE HOST Ot E11.622 TYPE 2 DIABETES MELLITUS WITH OTHER SKIN 04/02/2018 KELLY, THELMA R BEVERAGE HOST Ot L88 PYODERMA GANGRENOSUM 04/02/2018 KELLY THELMA R BEVERAGE HOST Ot L98.492 NON-PRS CHRONIC ULCER OF SKIN OF SITES W 04/02/2018 KELLY, THELMA R BEVERAGE HOST Ot Q05.9 SPINA BIFIDA, UNSPECIFIED 04/02/2018 KELLY, THELMA R BEVERAGE HOST Ot T81.31XA DISRUPTION OF EXTERNAL OPERATION (SURGIC 04/06/2018 KELLY, THELMA R BEVERAGE HOST Ot E11.622 TYPE 2 DIABETES MELLITUS WITH OTHER SKIN 04/06/2018 KELLY, THELMA R BEVERAGE HOST Ot L88 PYODERMA GANGRENOSUM 04/06/2018 KELLY THELMA R BEVERAGE HOST Ot L98.492 NON-PRS CHRONIC ULCER OF SKIN OF SITES W 04/06/2018 KELLY, THELMA R BEVERAGE HOST Ot Q05.9 SPINA BIFIDA, UNSPECIFIED 04/06/2018 KELLY, THELMA R BEVERAGE HOST Ot T81.31XA DISRUPTION OF EXTERNAL OPERATION (SURGIC 04/06/2018 KELLY, THELMA R BEVERAGE HOST Ot E11.622 TYPE 2 DIABETES MELLITUS WITH OTHER SKIN 04/06/2018 KELLY, THELMA R BEVERAGE HOST Ot L88 PYODERMA GANGRENOSUM 04/06/2018 KELLY THELMA R BEVERAGE HOST Ot L98.492 NON-PRS CHRONIC ULCER OF SKIN OF SITES W 04/06/2018 KELLY, THELMA R BEVERAGE HOST Ot Q05.9 SPINA BIFIDA, UNSPECIFIED 04/06/2018 KELLY, THELMA R BEVERAGE HOST Ot T81.31XA DISRUPTION OF EXTERNAL OPERATION (SURGIC 04/11/2018 KELLY, THELMA R BEVERAGE HOST Ot E11.622 TYPE 2 DIABETES MELLITUS WITH OTHER SKIN 04/11/2018 KELLY, THELMA R BEVERAGE HOST Ot L88 PYODERMA GANGRENOSUM 04/11/2018 KELLY, THELMA R BEVERAGE HOST Ot L98.492 NON-PRS CHRONIC ULCER OF SKIN OF SITES W 04/11/2018 KELLY, THELMA R BEVERAGE HOST Ot T81.31XA DISRUPTION OF EXTERNAL OPERATION (SURGIC 04/20/2018 KELLY, THELMA R BEVERAGE HOST Ot E11.622 TYPE 2 DIABETES MELLITUS WITH OTHER SKIN 04/20/2018 KELLY, THELMA R BEVERAGE HOST Ot L88 PYODERMA GANGRENOSUM 04/20/2018 KELLY, THELMA R BEVERAGE HOST Ot L98.492 NON-PRS CHRONIC ULCER OF SKIN OF SITES W 04/20/2018 KELLY, THELMA R BEVERAGE HOST Ot Q05.9 SPINA BIFIDA, UNSPECIFIED 04/20/2018 KELLY, THELMA R BEVERAGE HOST Ot T81.31XA DISRUPTION OF EXTERNAL OPERATION (SURGIC 04/28/2018 KELLY, THELMA R BEVERAGE HOST Ot E11.622 TYPE 2 DIABETES MELLITUS WITH OTHER SKIN 04/28/2018 KELLY, THELMA R BEVERAGE HOST Ot L88 PYODERMA GANGRENOSUM 04/28/2018 KELLY, THELMA R BEVERAGE HOST Ot L98.492 NON-PRS CHRONIC ULCER OF SKIN OF SITES W 04/28/2018 KELLY, THELMA R BEVERAGE HOST Ot Q05.9 SPINA BIFIDA, UNSPECIFIED 04/28/2018 KELLY, THELMA R BEVERAGE HOST Ot T81.31XA DISRUPTION OF EXTERNAL OPERATION (SURGIC 04/28/2018 KELYL, THELMA R BEVERAGE HOST Ot E11.622 TYPE 2 DIABETES MELLITUS WITH OTHER SKIN 04/28/2018 KELLY, THELMA R BEVERAGE HOST Ot L88 PYODERMA GANGRENOSUM 04/28/2018 KELLY, THELMA R BEVERAGE HOST Ot L98.492 NON-PRS CHRONIC ULCER OF SKIN OF SITES W 04/28/2018 KELLY, THELMA R BEVERAGE HOST Ot T81.31XA DISRUPTION OF EXTERNAL OPERATION (SURGIC 05/03/2018 KELLY, THELMA R BEVERAGE HOST Ot E11.622 TYPE 2 DIABETES MELLITUS WITH OTHER SKIN 05/03/2018 KELLY, THELMA R BEVERAGE HOST Ot L88 PYODERMA GANGRENOSUM 05/03/2018 KELLY, THELMA R BEVERAGE HOST Ot L98.492 NON-PRS CHRONIC ULCER OF SKIN OF SITES W 05/03/2018 KELLY, THELMA R BEVERAGE HOST Ot Q05.9 SPINA BIFIDA, UNSPECIFIED 05/03/2018 KELLY, THELMA R BEVERAGE HOST Ot T81.31XA DISRUPTION OF EXTERNAL OPERATION (SURGIC 05/03/2018 KELLY, THELMA R BEVERAGE HOST Ot E11.622 TYPE 2 DIABETES MELLITUS WITH OTHER SKIN 05/03/2018 KELLY, THELMA R BEVERAGE HOST Ot L88 PYODERMA GANGRENOSUM 05/03/2018 THELMA MENDOZA R BEVERAGE HOST Ot L98.492 NON-PRS CHRONIC ULCER OF SKIN OF SITES W 05/03/2018 THELMA MENDOZA R BEVERAGE HOST Ot T81.31XA DISRUPTION OF EXTERNAL OPERATION (SURGIC 05/04/2018 THELMA MENDOZA R BEVERAGE HOST Ot E11.622 TYPE 2 DIABETES MELLITUS WITH OTHER SKIN 05/04/2018 THELMA MENDOZA R BEVERAGE HOST Ot L88 PYODERMA GANGRENOSUM 05/04/2018 KELLY THELMA R BEVERAGE HOST Ot L98.492 NON-PRS CHRONIC ULCER OF SKIN OF SITES W 05/04/2018 KELLY THELMA R BEVERAGE HOST Ot Q05.9 SPINA BIFIDA, UNSPECIFIED 05/04/2018 THELMA MENDOZA R BEVERAGE HOST Ot T81.31XA DISRUPTION OF EXTERNAL OPERATION (SURGIC 05/12/2018 MARIELA HINDS, MIRIAM Geller Ot M54.2 CERVICALGIA 05/12/2018 MARIELA HINDS, MIRIAM Geller Ot M54.5 LOW BACK PAIN 05/12/2018 THELMA MENDOZA R BEVERAGE HOST Ot G82.20 PARAPLEGIA, UNSPECIFIED 05/12/2018 THELMA MENDOZA R BEVERAGE HOST Ot L89.303 PRESSURE ULCER OF UNSPECIFIED BUTTOCK, S 05/12/2018 THELMA MENDOZA R BEVERAGE HOST Ot Q05.9 SPINA BIFIDA, UNSPECIFIED 05/12/2018 WILLIAM PARKS MD Ot L89.93 PRESSURE ULCER OF UNSPECIFIED SITE, STAG 05/12/2018 WILLIAM PARKS MD Ot L98.492 NON-PRS CHRONIC ULCER OF SKIN OF SITES W 05/12/2018 WILLIAM PARKS MD Ot Q05.9 SPINA BIFIDA, UNSPECIFIED 05/12/2018 WILLIAM PARKS MD Ot T81.31XA DISRUPTION OF EXTERNAL OPERATION (SURGIC 05/12/2018 THELMA MENDOZA R BEVERAGE HOST Ot L89.93 PRESSURE ULCER OF UNSPECIFIED SITE, STAG 05/12/2018 THELMA MENDOZA R BEVERAGE HOST Ot L98.492 NON-PRS CHRONIC ULCER OF SKIN OF SITES W 05/12/2018 THELMA MENDOZA R BEVERAGE HOST Ot Q05.9 SPINA BIFIDA, UNSPECIFIED 05/12/2018 THELMA MENDOZA R BEVERAGE HOST Ot T81.31XD DISRUPTION OF EXTERNAL OPERATION (SURGIC 05/12/2018 WILLIAM PARKS MD Ot L89.93 PRESSURE ULCER OF UNSPECIFIED SITE, STAG 05/12/2018 WILLIAM PARKS MD Ot L98.492 NON-PRS CHRONIC ULCER OF SKIN OF SITES W 05/12/2018 WILLIAM PARKS MD Ot Q05.9 SPINA BIFIDA, UNSPECIFIED 05/12/2018 WILLIAM PARKS MD Ot T81.31XA DISRUPTION OF EXTERNAL OPERATION (SURGIC 05/12/2018 THELMA MENDOZA R BEVERAGE HOST Ot L89.93 PRESSURE ULCER OF UNSPECIFIED SITE, STAG 05/12/2018 KELLY THELMA R BEVERAGE HOST Ot L98.492 NON-PRS CHRONIC ULCER OF SKIN OF SITES W 05/12/2018 THELMA MENDOZA BEVERAGE HOST Ot Q05.9 SPINA BIFIDA, UNSPECIFIED 05/12/2018 THELMA MENDOZA BEVERAGE HOST Ot T81.31XA DISRUPTION OF EXTERNAL OPERATION (SURGIC 05/12/2018 WILLIAM PARKS MD Ot L89.93 PRESSURE ULCER OF UNSPECIFIED SITE, STAG 05/12/2018 WILLIAM PARKS MD Ot 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, 05/12/2018 WILLIAM PARKS MD Ot L98.492 NON-PRS CHRONIC ULCER OF SKIN OF SITES W 05/12/2018 WILLIAM PARKS MD Ot Q05.9 SPINA BIFIDA, UNSPECIFIED 05/12/2018 WILLIAM PARKS MD Ot T81.31XA DISRUPTION OF EXTERNAL OPERATION (SURGIC 05/12/2018 WILLIAM PARKS MD Ot L98.492 NON-PRS CHRONIC ULCER OF SKIN OF SITES W 05/12/2018 WILLIAM PARKS MD Ot Q05.9 SPINA BIFIDA, UNSPECIFIED 05/12/2018 WILLIAM PARKS MD Ot T81.31XA DISRUPTION OF EXTERNAL OPERATION (SURGIC 05/12/2018 THELMA MENDOZA R BEVERAGE HOST Ot L98.492 NON-PRS CHRONIC ULCER OF SKIN OF SITES W 05/12/2018 THELMA MENDOZA BEVERAGE HOST Ot Q05.9 SPINA BIFIDA, UNSPECIFIED 05/12/2018 THELMA MENDOZA R BEVERAGE HOST Ot T81.31XA DISRUPTION OF EXTERNAL OPERATION (SURGIC 05/12/2018 KELLY THELMA R BEVERAGE HOST Ot L98.492 NON-PRS CHRONIC ULCER OF SKIN OF SITES W 05/12/2018 THELMA MENDOZA BEVERAGE HOST Ot Q05.9 SPINA BIFIDA, UNSPECIFIED 05/12/2018 KELLY THELMA R BEVERAGE HOST Ot T81.31XA DISRUPTION OF EXTERNAL OPERATION (SURGIC 05/12/2018 Ot L98.492 NON-PRS CHRONIC ULCER OF SKIN OF SITES W 05/12/2018 Ot Q05.9 SPINA BIFIDA , UNSPECIFIED 05/12/2018 Ot T81.31XA DISRUPTION OF EXTERNAL OPERATION (SURGIC 05/12/2018 Ot L98.492 NON-PRS CHRONIC ULCER OF SKIN OF SITES W 05/12/2018 Ot Q05.9 SPINA BIFIDA , UNSPECIFIED 05/12/2018 Ot T81.31XA DISRUPTION OF EXTERNAL OPERATION (SURGIC 05/12/2018 KELLY THELMA R BEVERAGE HOST Ot L98.492 NON-PRS CHRONIC ULCER OF SKIN OF SITES W 05/12/2018 KELLY THELMA R BEVERAGE HOST Ot Q05.9 SPINA BIFIDA, UNSPECIFIED 05/12/2018 KELLY THELMA R BEVERAGE HOST Ot T81.31XA DISRUPTION OF EXTERNAL OPERATION (SURGIC 05/12/2018 KELLY THELMA R BEVERAGE HOST Ot L98.492 NON-PRS CHRONIC ULCER OF SKIN OF SITES W 05/12/2018 KELLY THELMA R BEVERAGE HOST Ot Q05.9 SPINA BIFIDA, UNSPECIFIED 05/12/2018 KELLY THELMA R BEVERAGE HOST Ot T81.31XA DISRUPTION OF EXTERNAL OPERATION (SURGIC 05/12/2018 CHARLY HINDS, WILLIAM Jamil Ot 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, 05/12/2018 CHARLY HINDS, WILLIAM Jamil Ot L98.492 NON-PRS CHRONIC ULCER OF SKIN OF SITES W 05/12/2018 CHARLY HINDS, WILLIAM Jamil Ot Q05.9 SPINA BIFIDA, UNSPECIFIED 05/12/2018 WILLIAM PARKS MD Ot T81.31XA DISRUPTION OF EXTERNAL OPERATION (SURGIC 05/12/2018 KELLY THELMA R BEVERAGE HOST Ot 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, 05/12/2018 KELLY THELMA R BEVERAGE HOST Ot L98.492 NON-PRS CHRONIC ULCER OF SKIN OF SITES W 05/12/2018 KELLY THELMA R BEVERAGE HOST Ot Q05.9 SPINA BIFIDA, UNSPECIFIED 05/12/2018 KELLY THELMA R BEVERAGE HOST Ot T81.31XA DISRUPTION OF EXTERNAL OPERATION (SURGIC 05/12/2018 KELLY, THELMA R BEVERAGE HOST Ot 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, 05/12/2018 KELLY THELMA R BEVERAGE HOST Ot L98.492 NON-PRS CHRONIC ULCER OF SKIN OF SITES W 05/12/2018 KELLY, THELMA R BEVERAGE HOST Ot T81.31XA DISRUPTION OF EXTERNAL OPERATION (SURGIC 05/12/2018 KELLY THELMA R BEVERAGE HOST Ot 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, 05/12/2018 KELLY THELMA R BEVERAGE HOST Ot L98.492 NON-PRS CHRONIC ULCER OF SKIN OF SITES W 05/12/2018 KELLY, THELMA R BEVERAGE HOST Ot Q05.9 SPINA BIFIDA, UNSPECIFIED 05/12/2018 KELLY, THELMA R BEVERAGE HOST Ot T81.31XA DISRUPTION OF EXTERNAL OPERATION (SURGIC 05/12/2018 KELLY THELMA R BEVERAGE HOST Ot 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, 05/12/2018 KELLY THELMA R BEVERAGE HOST Ot L98.492 NON-PRS CHRONIC ULCER OF SKIN OF SITES W 05/12/2018 KELLY THELMA R BEVERAGE HOST Ot Q05.9 SPINA BIFIDA, UNSPECIFIED 05/12/2018 KELLY, THELMA R BEVERAGE HOST Ot T81.31XA DISRUPTION OF EXTERNAL OPERATION (SURGIC 05/12/2018 WILLIAM PARKS MD Ot E11.622 TYPE 2 DIABETES MELLITUS WITH OTHER SKIN 05/12/2018 WILLIAM PARKS MD Ot L98.492 NON-PRS CHRONIC ULCER OF SKIN OF SITES W 05/12/2018 WILLIAM PARKS MD Ot Q05.9 SPINA BIFIDA, UNSPECIFIED 05/12/2018 WILLIAM PARKS MD Ot T81.31XA DISRUPTION OF EXTERNAL OPERATION (SURGIC 05/12/2018 KELLY THELMA R BEVERAGE HOST Ot E11.622 TYPE 2 DIABETES MELLITUS WITH OTHER SKIN 05/12/2018 KELLY, THELMA R BEVERAGE HOST Ot L88 PYODERMA GANGRENOSUM 05/12/2018 KELLY THELMA R BEVERAGE HOST Ot L98.492 NON-PRS CHRONIC ULCER OF SKIN OF SITES W 05/12/2018 KELLY THELMA R BEVERAGE HOST Ot Q05.9 SPINA BIFIDA, UNSPECIFIED 05/12/2018 KELLY, THELMA R BEVERAGE HOST Ot T81.31XA DISRUPTION OF EXTERNAL OPERATION (SURGIC 05/12/2018 KELLY, THELMA R BEVERAGE HOST Ot E11.622 TYPE 2 DIABETES MELLITUS WITH OTHER SKIN 05/12/2018 KELLY, THELMA R BEVERAGE HOST Ot L88 PYODERMA GANGRENOSUM 05/12/2018 KELLY, THELMA R BEVERAGE HOST Ot L98.492 NON-PRS CHRONIC ULCER OF SKIN OF SITES W 05/12/2018 KELLY, THELMA R BEVERAGE HOST Ot Q05.9 SPINA BIFIDA, UNSPECIFIED 05/12/2018 KELLY, THELMA R BEVERAGE HOST Ot T81.31XA DISRUPTION OF EXTERNAL OPERATION (SURGIC 05/12/2018 KELLY, THELMA R BEVERAGE HOST Ot E11.622 TYPE 2 DIABETES MELLITUS WITH OTHER SKIN 05/12/2018 KELLY, THELMA R BEVERAGE HOST Ot L88 PYODERMA GANGRENOSUM 05/12/2018 KELLY, THELMA R BEVERAGE HOST Ot L98.492 NON-PRS CHRONIC ULCER OF SKIN OF SITES W 05/12/2018 KELLY, THELMA R BEVERAGE HOST Ot Q05.9 SPINA BIFIDA, UNSPECIFIED 05/12/2018 KELLY, THELMA R BEVERAGE HOST Ot T81.31XA DISRUPTION OF EXTERNAL OPERATION (SURGIC 05/12/2018 KELLY, THELMA R BEVERAGE HOST Ot E11.622 TYPE 2 DIABETES MELLITUS WITH OTHER SKIN 05/12/2018 KELLY, THELMA R BEVERAGE HOST Ot L88 PYODERMA GANGRENOSUM 05/12/2018 KELLY, THELMA R BEVERAGE HOST Ot L98.492 NON-PRS CHRONIC ULCER OF SKIN OF SITES W 05/12/2018 KELLY, THELMA R BEVERAGE HOST Ot T81.31XA DISRUPTION OF EXTERNAL OPERATION (SURGIC 05/12/2018 KELLY, THELMA R BEVERAGE HOST Ot E11.622 TYPE 2 DIABETES MELLITUS WITH OTHER SKIN 05/12/2018 KELLY, THELMA R BEVERAGE HOST Ot L88 PYODERMA GANGRENOSUM 05/12/2018 KELLY, THELMA R BEVERAGE HOST Ot L98.492 NON-PRS CHRONIC ULCER OF SKIN OF SITES W 05/12/2018 KELLY, THELMA R BEVERAGE HOST Ot Q05.9 SPINA BIFIDA, UNSPECIFIED 05/12/2018 KELLY, THELMA R BEVERAGE HOST Ot T81.31XA DISRUPTION OF EXTERNAL OPERATION (SURGIC 05/12/2018 KELLY, THELMA R BEVERAGE HOST Ot E11.622 TYPE 2 DIABETES MELLITUS WITH OTHER SKIN 05/12/2018 KELLY, THELMA R BEVERAGE HOST Ot L88 PYODERMA GANGRENOSUM 05/12/2018 KELLYKAMILLELionel Yi BEVERAGE HOST Ot L98.492 NON-PRS CHRONIC ULCER OF SKIN OF SITES W 05/12/2018 THELMA MENDOZA BEVERAGE HOST Ot Q05.9 SPINA BIFIDA, UNSPECIFIED 05/12/2018 KELLY THELMA R BEVERAGE HOST Ot T81.31XA DISRUPTION OF EXTERNAL OPERATION (SURGIC 05/12/2018 THELMA MENDOZA BEVERAGE HOST Ot E11.622 TYPE 2 DIABETES MELLITUS WITH OTHER SKIN 05/12/2018 THELMA MENDOZA BEVERAGE HOST Ot L88 PYODERMA GANGRENOSUM 05/12/2018 KELLY THELMA R BEVERAGE HOST Ot L98.492 NON-PRS CHRONIC ULCER OF SKIN OF SITES W 05/12/2018 THELMA MENDOZA BEVERAGE HOST Ot Q05.9 SPINA BIFIDA, UNSPECIFIED 05/12/2018 THELMA MENDOZA BEVERAGE HOST Ot T81.31XA DISRUPTION OF EXTERNAL OPERATION (SURGIC 05/13/2018 ZACLENDER DOKAREEM Ot A41.9 SEPSIS, UNSPECIFIED ORGANISM 05/13/2018 KIMBERDER KAREEM SKAGGS Ot E11.9 TYPE 2 DIABETES MELLITUS WITHOUT COMPLIC 05/13/2018 GELLENDER KAREEM SKAGGS Ot F32.9 MAJOR DEPRESSIVE DISORDER, SINGLE EPISOD 05/13/2018 KAREEM MARCH DO Ot G47.33 OBSTRUCTIVE SLEEP APNEA (ADULT) (PEDIATR 05/13/2018 GELLENDER KAREEM SKAGGS Ot G82.22 PARAPLEGIA, INCOMPLETE 05/13/2018 ZACLENDER KAREEM SKAGGS Ot I10 ESSENTIAL (PRIMARY) HYPERTENSION 05/13/2018 KAREEM MARCH DO Ot I87.2 VENOUS INSUFFICIENCY (CHRONIC) (PERIPHER 05/13/2018 GELLENDER DOKAREEM Ot J45.909 UNSPECIFIED ASTHMA, UNCOMPLICATED 05/13/2018 GELLENDER KAREEM SKAGGS Ot K46.0 UNSP ABDOMINAL HERNIA WITH OBSTRUCTION, 05/13/2018 GELLENDER KAREEM SKAGGS Ot K56.690 OTHER PARTIAL INTESTINAL OBSTRUCTION 05/13/2018 ZACLENDER KAREEM SKAGGS Ot N39.0 URINARY TRACT INFECTION, SITE NOT SPECIF 05/13/2018 KIMBERDER KAREEM SKAGGS Ot Q05.9 SPINA BIFIDA, UNSPECIFIED 05/13/2018 KAREEM MARCH DO Ot R74.8 ABNORMAL LEVELS OF OTHER SERUM ENZYMES 05/13/2018 GELLENDER DO, KAREEM Geller Ot Z90.49 ACQUIRED ABSENCE OF OTHER SPECIFIED PART 05/13/2018 ANCA SKAGGS, KAREEM Geller Ot Z93.2 ILEOSTOMY STATUS 05/13/2018 ZACLENDER DO, KAREEM Geller Ot Z93.59 OTHER CYSTOSTOMY STATUS 05/13/2018 ZACLENDER DO, KAREEM Geller Ot 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, KAREEM Geller Ot E11.9 TYPE 2 DIABETES MELLITUS WITHOUT COMPLIC 05/14/2018 GELLENDER DO, KAREEM Geller Ot F32.9 MAJOR DEPRESSIVE DISORDER, SINGLE EPISOD 05/14/2018 [facility] , KAREEM Geller Ot G47.33 OBSTRUCTIVE SLEEP APNEA (ADULT) (PEDIATR 05/14/2018 [facility] , KAREEM Geller Ot G82.22 PARAPLEGIA, INCOMPLETE 05/14/2018 [facility] K[facility]EM Geller Ot I10 ESSENTIAL (PRIMARY) HYPERTENSION 05/14/2018 [facility], KAREEM Geller Ot I87.2 VENOUS INSUFFICIENCY (CHRONIC) (PERIPHER 05/14/2018 [facility], KAREEM Geller Ot J45.909 UNSPECIFIED ASTHMA, UNCOMPLICATED 05/14/2018 [facility] , KAREEM Geller Ot K46.0 UNSP ABDOMINAL HERNIA WITH OBSTRUCTION, 05/14/2018 [facility] , KAREEM Geller Ot K56.690 OTHER PARTIAL INTESTINAL OBSTRUCTION 05/14/2018 [facility] , KAREEM Geller Ot N39.0 URINARY TRACT INFECTION, SITE NOT SPECIF 05/14/2018 [facility], KAREEM Geller Ot Q05.9 SPINA BIFIDA, UNSPECIFIED 05/14/2018 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 05/14/2018 THELMA MENDOZA APRN Ot E11.622 TYPE 2 DIABETES MELLITUS WITH OTHER SKIN 05/14/2018 KELLY, THELMA R BEVERAGE HOST Ot L88 PYODERMA GANGRENOSUM 05/14/2018 THELMA MENDOZA BEVERAGE HOST Ot L98.492 NON-PRS CHRONIC ULCER OF SKIN OF SITES W 05/14/2018 THELMA MENDOZA BEVERAGE HOST Ot Q05.9 SPINA BIFIDA, UNSPECIFIED 05/14/2018 THELMA MENDOZA BEVERAGE HOST Ot T81.31XA DISRUPTION OF EXTERNAL OPERATION (SURGIC 05/15/2018 ZACLENDER DO, KAREEM Geller Ot A41.9 SEPSIS, UNSPECIFIED ORGANISM 05/15/2018 ZACLENDER DO, KAREEM Geller Ot E11.9 TYPE 2 DIABETES MELLITUS WITHOUT COMPLIC 05/15/2018 ZACLENDER DO, KAREEM Geller Ot F32.9 MAJOR DEPRESSIVE DISORDER, SINGLE EPISOD 05/15/2018 [facility] KAREEM SKAGGS Ot G47.33 OBSTRUCTIVE SLEEP APNEA (ADULT) (PEDIATR 05/15/2018 ZACLENDER , KAREEM Geller Ot G82.22 PARAPLEGIA, INCOMPLETE 05/15/2018 [facility] KAREEM SKAGGS Ot I10 ESSENTIAL (PRIMARY) HYPERTENSION 05/15/2018 [facility] Ot I87.2 VENOUS INSUFFICIENCY (CHRONIC) (PERIPHER 05/15/2018 [facility] , KAREEM Geller Ot J45.909 UNSPECIFIED ASTHMA, UNCOMPLICATED 05/15/2018 [facility] KAREEM SKAGGS Ot K46.0 UNSP ABDOMINAL HERNIA WITH OBSTRUCTION, 05/15/2018 [facility] KAREEM Ot K56.690 OTHER PARTIAL INTESTINAL OBSTRUCTION 05/15/2018 [facility] SKAGGS Ot N39.0 URINARY TRACT INFECTION, SITE NOT SPECIF 05/15/2018 KIMBERJOSE KAREEM SKAGGS Ot Q05.9 SPINA BIFIDA, UNSPECIFIED 05/15/2018 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 05/16/2018 KAREEM MARCH DO Ot A41.9 SEPSIS, UNSPECIFIED ORGANISM 05/16/2018 GELLENDER DO, KAREEM Geller Ot E11.9 TYPE 2 DIABETES MELLITUS WITHOUT COMPLIC 05/16/2018 GELLENDER DO, KAREEM Geller Ot F32.9 MAJOR DEPRESSIVE DISORDER, SINGLE EPISOD 05/16/2018 GELLENDER DO, KAREEM Geller Ot G47.33 OBSTRUCTIVE SLEEP APNEA (ADULT) (PEDIATR 05/16/2018 GELLENDER DO, KAREEM Geller Ot G82.22 PARAPLEGIA, INCOMPLETE 05/16/2018 GELLENDER DO, KAREEM Geller Ot I10 ESSENTIAL (PRIMARY) HYPERTENSION 05/16/2018 GELLENDER DO, KAREEM Geller Ot I87.2 VENOUS INSUFFICIENCY (CHRONIC) (PERIPHER 05/16/2018 GELLENDER DO, KAREEM Geller Ot J45.909 UNSPECIFIED ASTHMA, UNCOMPLICATED 05/16/2018 GELLENDER DO, KAREEM Geller Ot K46.0 UNSP ABDOMINAL HERNIA WITH OBSTRUCTION, 05/16/2018 GELLENDER DO, KAREEM Geller Ot K56.690 OTHER PARTIAL INTESTINAL OBSTRUCTION 05/16/2018 [facility], KAREEM Geller Ot N39.0 URINARY TRACT INFECTION, SITE NOT SPECIF 05/16/2018 [facility], KAREEM Geller Ot Q05.9 SPINA BIFIDA, UNSPECIFIED 05/16/2018 GELLENDER DO, KAREEM Geller Ot R74.8 ABNORMAL LEVELS OF OTHER SERUM ENZYMES 05/16/2018 [facility] DO, KAREEM Geller Ot Z90.49 ACQUIRED ABSENCE OF OTHER SPECIFIED PART 05/16/2018 [facility], KAREEM Geller Ot Z93.2 ILEOSTOMY STATUS 05/16/2018 GELLENDER DO, KAREEM Geller Ot Z93.59 OTHER CYSTOSTOMY STATUS 05/16/2018 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, KAREEM Geller Ot A41.9 SEPSIS, UNSPECIFIED ORGANISM 05/16/2018 GELLENDER DO, KAREEM Geller Ot E11.9 TYPE 2 DIABETES MELLITUS WITHOUT COMPLIC 05/16/2018 GELLENDER DO, KAREEM Geller Ot F32.9 MAJOR DEPRESSIVE DISORDER, SINGLE EPISOD 05/16/2018 GELLENDER DO, KAREEM Geller Ot G47.33 OBSTRUCTIVE SLEEP APNEA (ADULT) (PEDIATR 05/16/2018 GELLENDER DO, KAREEM Geller Ot G82.22 PARAPLEGIA, INCOMPLETE 05/16/2018 GELLENDER DO, KAREEM Geller Ot G89.4 CHRONIC PAIN SYNDROME 05/16/2018 GELLENDER DO, KAREEM Geller Ot I10 ESSENTIAL (PRIMARY) HYPERTENSION 05/16/2018 ANCA SKAGGS KAREEM Yimi Ot I87.2 VENOUS INSUFFICIENCY (CHRONIC) (PERIPHER 05/16/2018 ANCA SKAGGS KAREEM Geller Ot J45.909 UNSPECIFIED ASTHMA, UNCOMPLICATED 05/16/2018 ANCA SKAGGS KAREEM Geller Ot K46.0 UNSP ABDOMINAL HERNIA WITH OBSTRUCTION, 05/16/2018 ANCA SKAGGS KAREEM Geller Ot K56.690 OTHER PARTIAL INTESTINAL OBSTRUCTION 05/16/2018 ANCA SKAGGSKAREEM Ot N39.0 URINARY TRACT INFECTION, SITE NOT SPECIF 05/16/2018 ANCA SKAGGS KAREEM Geller Ot Q05.7 LUMBAR SPINA BIFIDA WITHOUT HYDROCEPHALU 05/16/2018 ANCA SKAGGSKAREEM Ot Q05.9 SPINA BIFIDA, UNSPECIFIED 05/16/2018 ANCA SKAGGS KAREEM Geller Ot R74.8 ABNORMAL LEVELS OF OTHER SERUM ENZYMES 05/16/2018 ANCA SKAGGS KAREEM Gelelr Ot T83.510A I/I REACT D/T CYSTOSTOMY CATHETER, INITI 05/16/2018 ANCA SKAGGS KAREEM Geller Ot Z90.49 ACQUIRED ABSENCE OF OTHER SPECIFIED PART 05/16/2018 ANCA SKAGGSKAREEM Ot Z93.2 ILEOSTOMY STATUS 05/16/2018 ANCA SKAGGS KAREEM Geller Ot Z93.59 OTHER CYSTOSTOMY STATUS 05/16/2018 ANCA SKAGGS, KAREEM Geller Ot 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 05/25/2018 THELMA MENDOZA BEVERAGE HOST Ot E11.622 TYPE 2 DIABETES MELLITUS WITH OTHER SKIN 05/25/2018 THELMA MENDOZA BEVERAGE HOST Ot L88 PYODERMA GANGRENOSUM 05/25/2018 THELMA MENDOZA BEVERAGE HOST Ot L98.492 NON-PRS CHRONIC ULCER OF SKIN OF SITES W 05/25/2018 THELMA MENDOZA APRN Ot Q05.9 SPINA BIFIDA, UNSPECIFIED 05/25/2018 THELMA MENDOZA APRN Ot T81.31XA DISRUPTION OF EXTERNAL OPERATION (SURGIC 05/31/2018 THELMA MENDOZA BEVERAGE HOST Ot E11.622 TYPE 2 DIABETES MELLITUS WITH OTHER SKIN 05/31/2018 THELMA MENDOZA BEVERAGE HOST Ot L88 PYODERMA GANGRENOSUM 05/31/2018 THELMA MENDOZA BEVERAGE HOST Ot L98.492 NON-PRS CHRONIC ULCER OF SKIN OF SITES W 05/31/2018 THELMA MENDOZA BEVERAGE HOST Ot Q05.9 SPINA BIFIDA, UNSPECIFIED 05/31/2018 THELMA MENDOZA BEVERAGE HOST Ot T81.31XA DISRUPTION OF EXTERNAL OPERATION (SURGIC 06/15/2018 MARIELA HINDS, MIRIAM A Ot M54.2 CERVICALGIA 06/15/2018 MARIELA HINDS, MIRIAM A Ot M54.5 LOW BACK PAIN 06/15/2018 THELMA MENDOZA BEVERAGE HOST Ot G82.20 PARAPLEGIA, UNSPECIFIED 06/15/2018 THELMA MENDOZA BEVERAGE HOST Ot L89.303 PRESSURE ULCER OF UNSPECIFIED BUTTOCK, S 06/15/2018 THELMA MENDOZA APRN Ot Q05.9 SPINA BIFIDA, UNSPECIFIED 06/15/2018 WILLIAM PARKS MD Ot L89.93 PRESSURE ULCER OF UNSPECIFIED SITE, STAG 06/15/2018 WILLIAM PARKS MD Ot L98.492 NON-PRS CHRONIC ULCER OF SKIN OF SITES W 06/15/2018 WILLIAM PARKS MD Ot Q05.9 SPINA BIFIDA, UNSPECIFIED 06/15/2018 WILLIAM PARKS MD Ot T81.31XA DISRUPTION OF EXTERNAL OPERATION (SURGIC 06/15/2018 THELMA MENDOZA BEVERAGE HOST Ot L89.93 PRESSURE ULCER OF UNSPECIFIED SITE, STAG 06/15/2018 THELMA MENDOZA BEVERAGE HOST Ot L98.492 NON-PRS CHRONIC ULCER OF SKIN OF SITES W 06/15/2018 THELMA MENDOZA BEVERAGE HOST Ot Q05.9 SPINA BIFIDA, UNSPECIFIED 06/15/2018 THELMA MENDOZA APRN Ot T81.31XD DISRUPTION OF EXTERNAL OPERATION (SURGIC 06/15/2018 WILLIAM PARKS MD Ot L89.93 PRESSURE ULCER OF UNSPECIFIED SITE, STAG 06/15/2018 WILLIAM PARKS MD Ot L98.492 NON-PRS CHRONIC ULCER OF SKIN OF SITES W 06/15/2018 WILLIAM PARKS MD Ot Q05.9 SPINA BIFIDA, UNSPECIFIED 06/15/2018 WILLIAM PARKS MD Ot T81.31XA DISRUPTION OF EXTERNAL OPERATION (SURGIC 06/15/2018 THELMA MENDOZA BEVERAGE HOST Ot L89.93 PRESSURE ULCER OF UNSPECIFIED SITE, STAG 06/15/2018 THELMA MENDOZA BEVERAGE HOST Ot L98.492 NON-PRS CHRONIC ULCER OF SKIN OF SITES W 06/15/2018 THELMA MENDOZA BEVERAGE HOST Ot Q05.9 SPINA BIFIDA, UNSPECIFIED 06/15/2018 THELMA MENDOZA BEVERAGE HOST Ot T81.31XA DISRUPTION OF EXTERNAL OPERATION (SURGIC 06/15/2018 CHARLY HINDS, WILLIAM Jamil Ot L89.93 PRESSURE ULCER OF UNSPECIFIED SITE, STAG 06/15/2018 CHARLY HINDS, WILLIAM Jamil Ot 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9 SPINA BIFIDA, UNSPECIFIED 06/15/2018 THELMA MENDOZA BEVERAGE HOST Ot T81.31XA DISRUPTION OF EXTERNAL OPERATION (SURGIC 06/15/2018 THELMA MENDOZA BEVERAGE HOST Ot L98.492 NON-PRS CHRONIC ULCER OF SKIN OF SITES W 06/15/2018 THELMA MENDOZA BEVERAGE HOST Ot Q05.9 SPINA BIFIDA, UNSPECIFIED 06/15/2018 THELMA MENDOZA BEVERAGE HOST Ot T81.31XA DISRUPTION OF EXTERNAL OPERATION (SURGIC 06/15/2018 Ot L98.492 NON-PRS CHRONIC ULCER OF SKIN OF SITES W 06/15/2018 Ot Q05.9 SPINA BIFIDA , UNSPECIFIED 06/15/2018 Ot T81.31XA DISRUPTION OF EXTERNAL OPERATION (SURGIC 06/15/2018 Ot L98.492 NON-PRS CHRONIC ULCER OF SKIN OF SITES W 06/15/2018 Ot Q05.9 SPINA BIFIDA , UNSPECIFIED 06/15/2018 Ot T81.31XA DISRUPTION OF EXTERNAL OPERATION (SURGIC 06/15/2018 THELMA MENDOZA R BEVERAGE HOST Ot L98.492 NON-PRS CHRONIC ULCER OF SKIN OF SITES W 06/15/2018 THELMA MENDOZA R BEVERAGE HOST Ot Q05.9 SPINA BIFIDA, UNSPECIFIED 06/15/2018 KELLY, THELMA R BEVERAGE HOST Ot T81.31XA DISRUPTION OF EXTERNAL OPERATION (SURGIC 06/15/2018 KELLY THELMA R BEVERAGE HOST Ot L98.492 NON-PRS CHRONIC ULCER OF SKIN OF SITES W 06/15/2018 KELLY THELMA R BEVERAGE HOST Ot Q05.9 SPINA BIFIDA, UNSPECIFIED 06/15/2018 KELLY THELMA R BEVERAGE HOST Ot T81.31XA DISRUPTION OF EXTERNAL OPERATION (SURGIC 06/15/2018 WILLIAM PARKS MD Ot 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, 06/15/2018 WILLIAM PARKS MD Ot L98.492 NON-PRS CHRONIC ULCER OF SKIN OF SITES W 06/15/2018 WILLIAM PARKS MD Ot Q05.9 SPINA BIFIDA, UNSPECIFIED 06/15/2018 WILLIAM PARKS MD Ot T81.31XA DISRUPTION OF EXTERNAL OPERATION (SURGIC 06/15/2018 KELLY THELMA R BEVERAGE HOST Ot 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, 06/15/2018 KELLY THELMA R BEVERAGE HOST Ot L98.492 NON-PRS CHRONIC ULCER OF SKIN OF SITES W 06/15/2018 THELMA MENDOZA R BEVERAGE HOST Ot Q05.9 SPINA BIFIDA, UNSPECIFIED 06/15/2018 KELLY THELMA R BEVERAGE HOST Ot T81.31XA DISRUPTION OF EXTERNAL OPERATION (SURGIC 06/15/2018 KELLY THELMA R BEVERAGE HOST Ot 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, 06/15/2018 KELLY THELMA R BEVERAGE HOST Ot L98.492 NON-PRS CHRONIC ULCER OF SKIN OF SITES W 06/15/2018 KELLY THELMA R BEVERAGE HOST Ot T81.31XA DISRUPTION OF EXTERNAL OPERATION (SURGIC 06/15/2018 KELLY THELMA R BEVERAGE HOST Ot 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, 06/15/2018 KELLY THELMA R BEVERAGE HOST Ot L98.492 NON-PRS CHRONIC ULCER OF SKIN OF SITES W 06/15/2018 THELMA MENDOZA R BEVERAGE HOST Ot Q05.9 SPINA BIFIDA, UNSPECIFIED 06/15/2018 KELLY THELMA R BEVERAGE HOST Ot T81.31XA DISRUPTION OF EXTERNAL OPERATION (SURGIC 06/15/2018 THELMA MENDOZA R BEVERAGE HOST Ot 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, 06/15/2018 KELLY THELMA R BEVERAGE HOST Ot L98.492 NON-PRS CHRONIC ULCER OF SKIN OF SITES W 06/15/2018 THELMA MENDOZA R BEVERAGE HOST Ot Q05.9 SPINA BIFIDA, UNSPECIFIED 06/15/2018 KELLY THELMA R BEVERAGE HOST Ot T81.31XA DISRUPTION OF EXTERNAL OPERATION (SURGIC 06/15/2018 WILLIAM PARKS MD Ot E11.622 TYPE 2 DIABETES MELLITUS WITH OTHER SKIN 06/15/2018 WILLIAM PARKS MD Ot L98.492 NON-PRS CHRONIC ULCER OF SKIN OF SITES W 06/15/2018 WILLIAM PARKS MD Ot Q05.9 SPINA BIFIDA, UNSPECIFIED 06/15/2018 WILLIAM PARKS MD Ot T81.31XA DISRUPTION OF EXTERNAL OPERATION (SURGIC 06/15/2018 KELLY THELMA R BEVERAGE HOST Ot E11.622 TYPE 2 DIABETES MELLITUS WITH OTHER SKIN 06/15/2018 KAMILLE MENDOZAN R BEVERAGE HOST Ot L88 PYODERMA GANGRENOSUM 06/15/2018 KELLY THELMA R BEVERAGE HOST Ot L98.492 NON-PRS CHRONIC ULCER OF SKIN OF SITES W 06/15/2018 KELLY THELMA R BEVERAGE HOST Ot Q05.9 SPINA BIFIDA, UNSPECIFIED 06/15/2018 KELLY THELMA R BEVERAGE HOST Ot T81.31XA DISRUPTION OF EXTERNAL OPERATION (SURGIC 06/15/2018 KELLY THELMA R BEVERAGE HOST Ot E11.622 TYPE 2 DIABETES MELLITUS WITH OTHER SKIN 06/15/2018 KELLY THELMA R BEVERAGE HOST Ot L88 PYODERMA GANGRENOSUM 06/15/2018 KELLY THELMA R BEVERAGE HOST Ot L98.492 NON-PRS CHRONIC ULCER OF SKIN OF SITES W 06/15/2018 KELLY THELMA R BEVERAGE HOST Ot Q05.9 SPINA BIFIDA, UNSPECIFIED 06/15/2018 KELLY, THELMA R BEVERAGE HOST Ot T81.31XA DISRUPTION OF EXTERNAL OPERATION (SURGIC 06/15/2018 KELLY THELMA R BEVERAGE HOST Ot E11.622 TYPE 2 DIABETES MELLITUS WITH OTHER SKIN 06/15/2018 KELLY, THELMA R BEVERAGE HOST Ot L88 PYODERMA GANGRENOSUM 06/15/2018 KELLY THELMA R BEVERAGE HOST Ot L98.492 NON-PRS CHRONIC ULCER OF SKIN OF SITES W 06/15/2018 KELLY, THELMA R BEVERAGE HOST Ot Q05.9 SPINA BIFIDA, UNSPECIFIED 06/15/2018 KELLY, THELMA R BEVERAGE HOST Ot T81.31XA DISRUPTION OF EXTERNAL OPERATION (SURGIC 06/15/2018 KELLY THELMA R BEVERAGE HOST Ot E11.622 TYPE 2 DIABETES MELLITUS WITH OTHER SKIN 06/15/2018 KELLY THELMA R BEVERAGE HOST Ot L88 PYODERMA GANGRENOSUM 06/15/2018 KELLY THELMA R BEVERAGE HOST Ot L98.492 NON-PRS CHRONIC ULCER OF SKIN OF SITES W 06/15/2018 KELLY, THELMA R BEVERAGE HOST Ot T81.31XA DISRUPTION OF EXTERNAL OPERATION (SURGIC 06/15/2018 KELLY THELMA R BEVERAGE HOST Ot E11.622 TYPE 2 DIABETES MELLITUS WITH OTHER SKIN 06/15/2018 KELLY THLEMA R BEVERAGE HOST Ot L88 PYODERMA GANGRENOSUM 06/15/2018 KELLY THELMA R BEVERAGE HOST Ot L98.492 NON-PRS CHRONIC ULCER OF SKIN OF SITES W 06/15/2018 KELLY THELMA R BEVERAGE HOST Ot Q05.9 SPINA BIFIDA, UNSPECIFIED 06/15/2018 KELLY, THELMA R BEVERAGE HOST Ot T81.31XA DISRUPTION OF EXTERNAL OPERATION (SURGIC 06/15/2018 KELLY THELMA R BEVERAGE HOST Ot E11.622 TYPE 2 DIABETES MELLITUS WITH OTHER SKIN 06/15/2018 KELLY THELMA R BEVERAGE HOST Ot L88 PYODERMA GANGRENOSUM 06/15/2018 KELLY THELMA R BEVERAGE HOST Ot L98.492 NON-PRS CHRONIC ULCER OF SKIN OF SITES W 06/15/2018 KELLY, THELMA R BEVERAGE HOST Ot Q05.9 SPINA BIFIDA, UNSPECIFIED 06/15/2018 KELLY, THELMA R BEVERAGE HOST Ot T81.31XA DISRUPTION OF EXTERNAL OPERATION (SURGIC 06/15/2018 KELLY THELMA R BEVERAGE HOST Ot E11.622 TYPE 2 DIABETES MELLITUS WITH OTHER SKIN 06/15/2018 KELLY THELMA R BEVERAGE HOST Ot L88 PYODERMA GANGRENOSUM 06/15/2018 KELLY THELMA R BEVERAGE HOST Ot L98.492 NON-PRS CHRONIC ULCER OF SKIN OF SITES W 06/15/2018 KELLY, THELMA R BEVERAGE HOST Ot Q05.9 SPINA BIFIDA, UNSPECIFIED 06/15/2018 KELLY, THELMA R BEVERAGE HOST Ot T81.31XA DISRUPTION OF EXTERNAL OPERATION (SURGIC 06/15/2018 ALEJANDRINA PRADHAN BEVERAGE HOST Ot N39.0 URINARY TRACT INFECTION, SITE NOT SPECIF 06/16/2018 ALEJANDRINA PRADHAN BEVERAGE HOST Ot N39.0 URINARY TRACT INFECTION, SITE NOT SPECIF 06/17/2018 KELLY THELMA R BEVERAGE HOST Ot E11.622 TYPE 2 DIABETES MELLITUS WITH OTHER SKIN 06/17/2018 KELLY, THELMA R BEVERAGE HOST Ot L98.492 NON-PRS CHRONIC ULCER OF SKIN OF SITES W 06/17/2018 KELLY, THELMA R BEVERAGE HOST Ot Q05.9 SPINA BIFIDA, UNSPECIFIED 06/17/2018 KELLY, THELMA R BEVERAGE HOST Ot E11.622 TYPE 2 DIABETES MELLITUS WITH OTHER SKIN 06/17/2018 KELLY THELMA R BEVERAGE HOST Ot L98.492 NON-PRS CHRONIC ULCER OF SKIN OF SITES W 06/17/2018 KELLY, THELMA R BEVERAGE HOST Ot Q05.9 SPINA BIFIDA, UNSPECIFIED 06/20/2018 MIRIAM SIERRA MD Ot N39.0 URINARY TRACT INFECTION, SITE NOT SPECIF 06/20/2018 MIRIAM SIERRA MD Ot Z79.2 LONG-TERM (CURRENT) USE OF ANTIBIOTICS 06/21/2018 MIRIAM SIERRA MD Ot N39.0 URINARY TRACT INFECTION, SITE NOT SPECIF 06/21/2018 MIRIAM SIERRA MD Ot Z79.2 LONG-TERM (CURRENT) USE OF ANTIBIOTICS 06/21/2018 MIRIAM SIERRA MD Ot N39.0 URINARY TRACT INFECTION, SITE NOT SPECIF 06/21/2018 MIRIAM SIERRA MD Ot Z79.2 LONG-TERM (CURRENT) USE OF ANTIBIOTICS Procedures Code Description Performed By Performed On [id number] INSERTION OF INFUSION DEV INTO SUP VENA 05/12/2018 [id number] DRAINAGE OF STOMACH WITH DRAINAGE DEVICE 05/12/2018 Results Test Result Range Complete blood count [...] - 03/31/17 14:18 Bacterial blood culture NG [facility] Comprehensive metabolic panel - 03/31/17 14:41 Serum [...] calculation of estimated glomerular filtration rate 23 NR Serum or plasma glucose measurement (mass/volume) 101 [...] - 03/31/17 14:41 Bacterial blood culture NG [facility] Complete urinalysis with reflex to culture - [...] 10:37 Bacteria identification in wound by culture [id number] [facility] FREE TEXT EXTERNAL SENT TO REF. LAB 10-30-2017 NR QUANTITY OF GROWTH Scant Growth NRG MRSA [...] susceptibility test by minimum inhibitory concentration 2 [facility] Bacterial susceptibility panel - 10/27/17 10:37 Gentamicin [...] identification in isolate by anaerobe culture NG NR Gram stain microscopy - 11/30/17 09:32 GRAM STAIN RESULT NO BACTERIA OBSERVED [facility] Bacteria identification in wound by culture - 11/30/17 09:32 Bacteria identification in wound by culture NG NRG Bacteria identification in isolate by anaerobe culture - 12/14/17 09:20 Bacteria identification in isolate by anaerobe culture NOANA NRG Gram stain microscopy - 12/14/17 09:20 GRAM STAIN RESULT NO WBC'S OR BACTERIA OBSERVED [facility] Bacteria identification in wound by culture - 12/14/17 09:20 Bacteria identification in wound by culture SEE COMMEN [facility] FREE TEXT EXTERNAL ID REPORTED 12/16/17. ISOLATE SENT TO [facility] QUANTITY OF GROWTH . [facility] FREE TEXT ENTRY 2 RML FOR SENSITIVITY ON 12/17/17. [facility] CALL POSITIVES (F1 HELP) CALLED TO [facility], 12/16/17 8:30 BY [facility] Bacterial susceptibility panel - 12/14/17 09:20 Oxacillin [...] 10:05 Bacteria identification in wound by culture [id number] [facility] FREE TEXT EXTERNAL RML SENSITIVITY REPORTED 01/24/18 11:05 NR[facility] - 01/20/18 10:05 Gentamicin susceptibility [...] - 03/01/18 08:46 Gram stain microscopy REPORTED [id number]. NRG Bacteria identification in wound by culture - 03/01/18 08:46 Bacteria identification in wound by culture SEE COMMEN NRG FREE TEXT EXTERNAL ID'S REPORTED 03-03-18 1405. NRG QUANTITY OF GROWTH . NRG FREE TEXT ENTRY 2 SUSCEPTIBILITY REPORTED 03/05/18 12:05 NRG CALL POSITIVES (F1 HELP) [facility] CALLED TO REPORT MRSA AT 1109,10 NRG [facility] Sensitivity Panel - 03/01/18 08:46 Oxacillin susceptibility [...] S NRG Minocycline susc TANESHA 2 NRG Complete blood count (CBC) with automated white blood cell (WBC) differential - 05/12/18 16:32 Blood leukocytes automated count (number/volume) 16.7 10*3/uL 4.3-11.0 Blood erythrocytes automated count (number/volume) 5.42 10*6/uL 4.35-5.85 Venous blood hemoglobin measurement (mass/volume) 15.4 g/dL 13.3-17.7 Blood hematocrit (volume fraction) 46 % 40-54 Automated erythrocyte mean corpuscular volume 84 [foz_us] 80-99 Automated erythrocyte mean corpuscular hemoglobin (mass per erythrocyte) 28 pg 25-34 Automated erythrocyte mean corpuscular hemoglobin concentration measurement ( mass/volume) 34 g/dL 32-36 Automated erythrocyte distribution width ratio 14.9 % 10.0-14.5 Automated blood platelet count (count/volume) 376 10*3/uL 130-400 Automated blood platelet mean volume measurement 8.7 [foz_us] 7.4-10.4 Automated blood neutrophils/100 leukocytes 84 % 42-75 Automated blood lymphocytes/100 leukocytes 9 % 12-44 Blood monocytes/100 leukocytes 6 % 0-12 Automated blood eosinophils/100 leukocytes 2 % 0-10 Automated blood basophils/100 leukocytes 0 % 0-10 Blood neutrophils automated count (number/volume) 14.0 10*3 1.8-7.8 Blood lymphocytes automated count (number/volume) 1.5 10*3 1.0-4.0 Blood monocytes automated count (number/volume) 0.9 10*3 0.0-1.0 Automated eosinophil count 0.3 10*3/uL 0.0-0.3 Automated blood basophil count (count/volume) 0.0 10*3/uL 0.0-0.1 PT panel in platelet poor plasma by coagulation assay - 05/12/18 16:32 Prothrombin time (PT) in platelet poor plasma by coagulation assay 12.2 s 12.2-14.7 INR in platelet poor plasma or blood by coagulation assay 0.9 0.8-1.4 Activated partial thromboplastin time (aPTT) in platelet poor plasma bycoagulation assay - 05/12/18 16:32 Activated partial thromboplastin time (aPTT) in platelet poor plasma bycoagulation assay 31 s 24-35 Blood manual differential performed detection - 05/12/18 16:32 Blood monocytes/100 leukocytes 3 % NRG Manual blood segmented neutrophils/100 leukocytes 67 % NRG Blood band neutrophils/100 leukocytes 21 % NRG Manual blood lymphocytes/100 leukocytes 8 % NRG Manual eosinophils/100 leukocytes in nose 1 % NRG Manual blood basophils/100 leukocytes 0 % NRG Blood erythrocyte morphology finding identification NORMAL NR Comprehensive metabolic panel - 05/12/18 16:32 Serum or plasma sodium measurement (moles/volume) 138 mmol/L 135-145 Serum or plasma potassium measurement (moles/volume) 4.7 mmol/L 3.6-5.0 Serum or plasma chloride measurement (moles/volume) 102 mmol/L 98-107 Carbon dioxide 23 mmol/L 21-32 Serum or plasma anion gap determination (moles/volume) 13 mmol/L 5-14 Serum or plasma urea nitrogen measurement (mass/volume) 15 mg/dL 7-18 Serum or plasma creatinine measurement (mass/volume) 0.94 mg/dL 0.60-1.30 Serum or plasma urea nitrogen/creatinine mass ratio 16 NRG Serum or plasma creatinine measurement with calculation of estimated glomerular filtration rate > NRG Serum or plasma glucose measurement (mass/volume) 109 mg/dL 70-105 Serum or plasma calcium measurement (mass/volume) 11.0 mg/dL 8.5-10.1 Serum or plasma total bilirubin measurement (mass/volume) 0.3 mg/dL 0.1-1.0 Serum or plasma alkaline phosphatase measurement (enzymatic activity/volume) 139 U/L 40-136 Serum or plasma aspartate aminotransferase measurement (enzymatic activity/ volume) 70 U/L 5-34 Serum or plasma alanine aminotransferase measurement (enzymatic activity/volume ) 101 U/L 0-55 Serum or plasma protein measurement (mass/volume) 9.1 g/dL 6.4-8.2 Serum or plasma albumin measurement (mass/volume) 4.8 g/dL 3.2-4.5 Blood lactic acid measurement (moles/volume) - 05/12/18 16:32 Blood lactic acid measurement (moles/volume) 2.44 mmol/L 0.50-2.00 Bacterial blood culture - 05/12/18 16:32 QUANTITY OF GROWTH . NRG Bacterial blood culture SEE COMMEN NRG Bacterial blood culture - 05/12/18 16:55 Bacterial blood culture NG NRG Complete urinalysis with reflex to culture - 05/12/18 17:52 Urine color determination BREANA NRG Urine clarity determination VERY CLOUDY NRG Urine pH measurement by test strip 8 5-9 Specific gravity of urine by test strip 1.010 1.016- 1.022 Urine protein assay by test strip, semi-quantitative 4+ NEGATIVE Urine glucose detection by automated test strip NEGATIVE NEGATIVE Erythrocytes detection in urine sediment by light microscopy 5+ NEGATIVE Urine ketones detection by automated test strip NEGATIVE NEGATIVE Urine nitrite detection by test strip POSITIVE NEGATIVE Urine total bilirubin detection by test strip 1+ NEGATIVE Urine urobilinogen measurement by automated test strip (mass/volume) NORMAL NORMAL Urine leukocyte esterase detection by dipstick 3+ NEGATIVE Automated urine sediment erythrocyte count by microscopy (number/high power field) > [HPF] NRG Automated urine sediment leukocyte count by microscopy (number/high power field ) [HPF] NRG Bacteria detection in urine sediment by light microscopy LARGE NRG Crystals detection in urine sediment by light microscopy NONE NRG Casts detection in urine sediment by light microscopy NONE NRG Mucus detection in urine sediment by light microscopy NEGATIVE NRG Complete urinalysis with reflex to culture NO NRG Bacterial urine culture - 05/12/18 17:52 Bacterial urine culture SEE COMMEN NRG COLONY COUNT . NRG FTX;REPORTABLE RML SENT SENSITIVITY REPORT 05/15 12:06 NRG FREE TEXT ENTRY 2 NOTE:MULTI-DRUG RESISTANT ORGANISM; NRG FREE TEXT ENTRY 3 RML SENT ABOVE REPORT 05/14 11:05 NRG Gram stain microscopy - 05/12/18 17:52 Gram stain microscopy Few Gram positive cocci in clusters NRG Bacteria identification in wound by culture - 05/12/18 17:52 Bacteria identification in wound by culture [id number] NRG FREE TEXT EXTERNAL NORMAL SKIN AGUSTO ISOLATED; NRG QUANTITY OF GROWTH Moderate NRG FREE TEXT ENTRY 2 NO SUSCEPTIBILITY SET UP NRG FREE TEXT ENTRY 3 [facility]ML SENT THIS REPORT 05/14 11:05 [facility] - 05/12/18 17:52 Gentamicin susceptibility test by minimum inhibitory concentration > NRG Trimethoprim/sulfamethoxazole susceptibility test by minimum inhibitoryconcentration > NR Levofloxacin susceptibility test by minimum inhibitory concentration > NR Ampicillin susceptibility test by minimum inhibitory concentration > NR Cefazolin susceptibility test by minimum inhibitory concentration > NR Ceftriaxone susceptibility test by minimum inhibitory concentration > NR Ciprofloxacin susceptibility test by minimum inhibitory concentration > NR Meropenem susceptibility test by minimum inhibitory concentration < = NR Nitrofurantoin susceptibility test by minimum inhibitory concentration > NR Amoxicillin and clavulanate potassium susc TANESHA > [facility] - 05/12/18 17:52 Gentamicin susceptibility test by minimum inhibitory concentration < = NR Levofloxacin susceptibility test by minimum inhibitory concentration > NR Tobramycin susceptibility test by minimum inhibitory concentration S NRG Piperacillin/tazobactam susceptibility test by minimum inhibitory concentration = NR Ciprofloxacin susceptibility test by minimum inhibitory concentration <= NRG Meropenem susceptibility test by minimum inhibitory concentration 8 NR Aztreonam susceptibility test by minimum inhibitory concentration > NR Cefepime susceptibility test by minimum inhibitory concentration > NR Imipenem susceptibility test by minimum inhibitory concentration > NR Ceftazidime susceptibility test by minimum inhibitory concentration > [facility] Sensitivity Panel - 05/12/18 17:52 Oxacillin susceptibility test by minimum inhibitory concentration 0.5 NRG Clindamycin susceptibility test by minimum inhibitory concentration R NR Erythromycin susceptibility test by minimum inhibitory concentration > NR Trimethoprim/sulfamethoxazole susceptibility test by minimum inhibitoryconcentration < NR Vancomycin susceptibility test by minimum inhibitory concentration 1 NRG Levofloxacin susceptibility test by minimum inhibitory concentration <= NRG Rifampin susceptibility test by minimum inhibitory concentration <= NRG Cefazolin susceptibility test by minimum inhibitory concentration < = NRG Linezolid susceptibility test by minimum inhibitory concentration 2 NRG Penicillin G susceptibility test by minimum inhibitory concentration 0.5 NRG Minocycline susc TANESHA <= NRG Influenza virus A and B antigen detection - 05/12/18 20:17 FLU RESULT NEGATIVE FOR INFLUENZA A AND B ANTIGENS BY IA NRG Serum or plasma lactate measurement (moles/volume) - 05/12/18 20:30 Serum or plasma lactate measurement (moles/volume) 1.84 mmol/L 0.50-2.00 Complete blood count (CBC) with automated white blood cell (WBC) differential - 05/13/18 03:20 Blood leukocytes automated count (number/volume) 10.5 10*3/uL 4.3-11.0 Blood erythrocytes automated count (number/volume) 4.52 10*6/uL 4.35-5.85 Venous blood hemoglobin measurement (mass/volume) 12.6 g/dL 13.3-17.7 Blood hematocrit (volume fraction) 39 % 40-54 Automated erythrocyte mean corpuscular volume 86 [foz_us] 80-99 Automated erythrocyte mean corpuscular hemoglobin (mass per erythrocyte) 28 pg 25-34 Automated erythrocyte mean corpuscular hemoglobin concentration measurement ( mass/volume) 33 g/dL 32-36 Automated erythrocyte distribution width ratio 14.7 % 10.0-14.5 Automated blood platelet count (count/volume) 282 10*3/uL 130-400 Automated blood platelet mean volume measurement 9.0 [foz_us] 7.4-10.4 Automated blood neutrophils/100 leukocytes 83 % 42-75 Automated blood lymphocytes/100 leukocytes 10 % 12-44 Blood monocytes/100 leukocytes 7 % 0-12 Automated blood eosinophils/100 leukocytes 1 % 0-10 Automated blood basophils/100 leukocytes 0 % 0-10 Blood neutrophils automated count (number/volume) 8.7 10*3 1.8-7.8 Blood lymphocytes automated count (number/volume) 1.0 10*3 1.0-4.0 Blood monocytes automated count (number/volume) 0.7 10*3 0.0-1.0 Automated eosinophil count 0.1 10*3/uL 0.0-0.3 Automated blood basophil count (count/volume) 0.0 10*3/uL 0.0-0.1 Comprehensive metabolic panel - 05/13/18 03:20 Serum or plasma sodium measurement (moles/volume) 143 mmol/L 135-145 Serum or plasma potassium measurement (moles/volume) 4.0 mmol/L 3.6-5.0 Serum or plasma chloride measurement (moles/volume) 110 mmol/L 98-107 Carbon dioxide 20 mmol/L 21-32 Serum or plasma anion gap determination (moles/volume) 13 mmol/L 5-14 Serum or plasma urea nitrogen measurement (mass/volume) 13 mg/dL 7-18 Serum or plasma creatinine measurement (mass/volume) 0.73 mg/dL 0.60-1.30 Serum or plasma urea nitrogen/creatinine mass ratio 18 NRG Serum or plasma creatinine measurement with calculation of estimated glomerular filtration rate > NRG Serum or plasma glucose measurement (mass/volume) 120 mg/dL 70-105 Serum or plasma calcium measurement (mass/volume) 9.1 mg/dL 8.5-10.1 Serum or plasma total bilirubin measurement (mass/volume) 0.3 mg/dL 0.1-1.0 Serum or plasma alkaline phosphatase measurement (enzymatic activity/volume) 115 U/L 40-136 Serum or plasma aspartate aminotransferase measurement (enzymatic activity/ volume) 43 U/L 5-34 Serum or plasma alanine aminotransferase measurement (enzymatic activity/volume ) 86 U/L 0-55 Serum or plasma protein measurement (mass/volume) 7.0 g/dL 6.4-8.2 Serum or plasma albumin measurement (mass/volume) 3.8 g/dL 3.2-4.5 CALCIUM CORRECTED 9.3 mg/dL 8.5-10.1 Serum or plasma phosphate measurement (mass/volume) - 05/13/18 03:20 Serum or plasma phosphate measurement (mass/volume) 3.9 mg/dL 2.3-4.7 Magnesium - 05/13/18 03:20 Magnesium 1.8 mg/dL 1.8-2.4 Complete blood count (CBC) with automated white blood cell (WBC) differential - 05/14/18 06:05 Blood leukocytes automated count (number/volume) 5.4 10*3/uL 4.3-11.0 Blood erythrocytes automated count (number/volume) 3.76 10*6/uL 4.35-5.85 Venous blood hemoglobin measurement (mass/volume) 10.5 g/dL 13.3-17.7 Blood hematocrit (volume fraction) 33 % 40-54 Automated erythrocyte mean corpuscular volume 87 [foz_us] 80-99 Automated erythrocyte mean corpuscular hemoglobin (mass per erythrocyte) 28 pg 25-34 Automated erythrocyte mean corpuscular hemoglobin concentration measurement ( mass/volume) 32 g/dL 32-36 Automated erythrocyte distribution width ratio 14.8 % 10.0-14.5 Automated blood platelet count (count/volume) 205 10*3/uL 130-400 Automated blood platelet mean volume measurement 8.4 [foz_us] 7.4-10.4 Automated blood neutrophils/100 leukocytes 68 % 42-75 Automated blood lymphocytes/100 leukocytes 19 % 12-44 Blood monocytes/100 leukocytes 8 % 0-12 Automated blood eosinophils/100 leukocytes 5 % 0-10 Automated blood basophils/100 leukocytes 0 % 0-10 Blood neutrophils automated count (number/volume) 3.7 10*3 1.8-7.8 Blood lymphocytes automated count (number/volume) 1.0 10*3 1.0-4.0 Blood monocytes automated count (number/volume) 0.4 10*3 0.0-1.0 Automated eosinophil count 0.2 10*3/uL 0.0-0.3 Automated blood basophil count (count/volume) 0.0 10*3/uL 0.0-0.1 Whole blood basic metabolic panel - 05/14/18 06:05 Serum or plasma sodium measurement (moles/volume) 145 mmol/L 135-145 Serum or plasma potassium measurement (moles/volume) 3.7 mmol/L 3.6-5.0 Serum or plasma chloride measurement (moles/volume) 116 mmol/L 98-107 Carbon dioxide 21 mmol/L 21-32 Serum or plasma anion gap determination (moles/volume) 8 mmol/L 5-14 Serum or plasma urea nitrogen measurement (mass/volume) 9 mg/dL 7-18 Serum or plasma creatinine measurement (mass/volume) 0.75 mg/dL 0.60-1.30 Serum or plasma urea nitrogen/creatinine mass ratio 12 NRG Serum or plasma creatinine measurement with calculation of estimated glomerular filtration rate > NRG Serum or plasma glucose measurement (mass/volume) 86 mg/dL 70-105 Serum or plasma calcium measurement (mass/volume) 9.0 mg/dL 8.5-10.1 Vancomycin trough - 05/14/18 18:40 Vancomycin trough 30.4 ug/mL 10.0-20.0 Complete blood count (CBC) with automated white blood cell (WBC) differential - 05/15/18 06:10 Blood leukocytes automated count (number/volume) 4.8 10*3/uL 4.3-11.0 Blood erythrocytes automated count (number/volume) 3.87 10*6/uL 4.35-5.85 Venous blood hemoglobin measurement (mass/volume) 10.7 g/dL 13.3-17.7 Blood hematocrit (volume fraction) 34 % 40-54 Automated erythrocyte mean corpuscular volume 87 [foz_us] 80-99 Automated erythrocyte mean corpuscular hemoglobin (mass per erythrocyte) 28 pg 25-34 Automated erythrocyte mean corpuscular hemoglobin concentration measurement ( mass/volume) 32 g/dL 32-36 Automated erythrocyte distribution width ratio 14.2 % 10.0-14.5 Automated blood platelet count (count/volume) 195 10*3/uL 130-400 Automated blood platelet mean volume measurement 8.3 [foz_us] 7.4-10.4 Automated blood neutrophils/100 leukocytes 62 % 42-75 Automated blood lymphocytes/100 leukocytes 24 % 12-44 Blood monocytes/100 leukocytes 8 % 0-12 Automated blood eosinophils/100 leukocytes 7 % 0-10 Automated blood basophils/100 leukocytes 0 % 0-10 Blood neutrophils automated count (number/volume) 3.0 10*3 1.8-7.8 Blood lymphocytes automated count (number/volume) 1.2 10*3 1.0-4.0 Blood monocytes automated count (number/volume) 0.4 10*3 0.0-1.0 Automated eosinophil count 0.3 10*3/uL 0.0-0.3 Automated blood basophil count (count/volume) 0.0 10*3/uL 0.0-0.1 Whole blood basic metabolic panel - 05/15/18 06:10 Serum or plasma sodium measurement (moles/volume) 145 mmol/L 135-145 Serum or plasma potassium measurement (moles/volume) 3.8 mmol/L 3.6-5.0 Serum or plasma chloride measurement (moles/volume) 116 mmol/L 98-107 Carbon dioxide 21 mmol/L 21-32 Serum or plasma anion gap determination (moles/volume) 8 mmol/L 5-14 Serum or plasma urea nitrogen measurement (mass/volume) 9 mg/dL 7-18 Serum or plasma creatinine measurement (mass/volume) 0.69 mg/dL 0.60-1.30 Serum or plasma urea nitrogen/creatinine mass ratio 13 NRG Serum or plasma creatinine measurement with calculation of estimated glomerular filtration rate > NRG Serum or plasma glucose measurement (mass/volume) 94 mg/dL 70-105 Serum or plasma calcium measurement (mass/volume) 8.8 mg/dL 8.5-10.1 Vancomycin trough - 05/15/18 09:50 Vancomycin trough 12.1 ug/mL 10.0-20.0 Complete blood count (CBC) with automated white blood cell (WBC) differential - 05/16/18 06:05 Blood leukocytes automated count (number/volume) 4.6 10*3/uL 4.3-11.0 Blood erythrocytes automated count (number/volume) 3.56 10*6/uL 4.35-5.85 Venous blood hemoglobin measurement (mass/volume) 10.0 g/dL 13.3-17.7 Blood hematocrit (volume fraction) 31 % 40-54 Automated erythrocyte mean corpuscular volume 86 [foz_us] 80-99 Automated erythrocyte mean corpuscular hemoglobin (mass per erythrocyte) 28 pg 25-34 Automated erythrocyte mean corpuscular hemoglobin concentration measurement ( mass/volume) 33 g/dL 32-36 Automated erythrocyte distribution width ratio 14.3 % 10.0-14.5 Automated blood platelet count (count/volume) 210 10*3/uL 130-400 Automated blood platelet mean volume measurement 8.4 [foz_us] 7.4-10.4 Automated blood neutrophils/100 leukocytes 66 % 42-75 Automated blood lymphocytes/100 leukocytes 22 % 12-44 Blood monocytes/100 leukocytes 6 % 0-12 Automated blood eosinophils/100 leukocytes 6 % 0-10 Automated blood basophils/100 leukocytes 0 % 0-10 Blood neutrophils automated count (number/volume) 3.0 10*3 1.8-7.8 Blood lymphocytes automated count (number/volume) 1.0 10*3 1.0-4.0 Blood monocytes automated count (number/volume) 0.3 10*3 0.0-1.0 Automated eosinophil count 0.3 10*3/uL 0.0-0.3 Automated blood basophil count (count/volume) 0.0 10*3/uL 0.0-0.1 Whole blood basic metabolic panel - 05/16/18 06:05 Serum or plasma sodium measurement (moles/volume) 147 mmol/L 135-145 Serum or plasma potassium measurement (moles/volume) 3.7 mmol/L 3.6-5.0 Serum or plasma chloride measurement (moles/volume) 117 mmol/L 98-107 Carbon dioxide 22 mmol/L 21-32 Serum or plasma anion gap determination (moles/volume) 8 mmol/L 5-14 Serum or plasma urea nitrogen measurement (mass/volume) 7 mg/dL 7-18 Serum or plasma creatinine measurement (mass/volume) 0.73 mg/dL 0.60-1.30 Serum or plasma urea nitrogen/creatinine mass ratio 10 NRG Serum or plasma creatinine measurement with calculation of estimated glomerular filtration rate > NRG Serum or plasma glucose measurement (mass/volume) 98 mg/dL 70-105 Serum or plasma calcium measurement (mass/volume) 8.8 mg/dL 8.5-10.1 Trough amikacin level - 06/17/18 14:11 Trough amikacin level Complete NRG Serum or plasma peak amikacin level (mass/volume) - 06/17/18 14:11 Serum or plasma peak amikacin level (mass/volume) 10.3 ug/mL NRG Trough amikacin level - 06/17/18 14:11 Trough amikacin level TROUGH NRG Trough amikacin level - 06/19/18 14:30 Trough amikacin level Complete NRG Serum or plasma peak amikacin level (mass/volume) - 06/19/18 14:30 Serum or plasma peak amikacin level (mass/volume) 17.5 ug/mL NRG Trough amikacin level - 06/19/18 14:30 Trough amikacin level TROUGH NRG Encounters ACCT No. Visit Date/Time Discharge Status Pt. Type Provider Facility Loc./Unit Complaint [id number] 03/25/2016 14:59:33 03/25/2016 23:59:59 [facility] Outpatient Jonah Salazar [id number] 03/13/2016 19:25:09 03/13/2016 23:59:59 C[facility] Outpatient Jonah Salazar [id number] 03/03/2016 11:49:22 03/03/2016 23:59:59 CLS Outpatient Jonah Salazar [id number] 02/07/2016 10:19:38 02/07/2016 23:59:59 CLS Outpatient Jonah Salazar [id number] 01/23/2016 11:38:31 01/23/2016 23:59:59 CLS Outpatient Jonah Salazar [id number] 12/21/2015 20:20:27 12/21/2015 23:59:59 CLS Outpatient Jonah Salazar [id number] 11/30/2015 16:00:42 11/30/2015 23:59:59 CLS Outpatient Soledad Blassea [id number] 07/25/2015 15:26:25 07/25/2015 23:59:59 CLS Outpatient Jonah Salazar [id number] 07/01/2015 14:47:56 07/01/2015 23:59:59 CLS Outpatient Jonah Salazar [id number] 05/03/2015 15:41:52 05/03/2015 23:59:59 CLS Outpatient Regina Blas [id number] 04/12/2015 14:15:25 04/12/2015 23:59:59 CLS Outpatient Jonah Salazar [id number] 04/09/2015 14:19:19 04/09/2015 23:59:59 CLS Outpatient Regina Blas [id number] 04/04/2015 11:46:55 04/04/2015 23:59:59 CLS Outpatient Jonah Salazar [id number] 03/20/2015 14:38:53 03/20/2015 23:59:59 CLS Outpatient Jonah Salazar [id number] 02/20/2015 11:47:26 02/20/2015 23:59:59 CLS Outpatient Jonah Salazar [id number] 12/24/2014 22:10:53 12/24/2014 23:59:59 CLS Outpatient Jonah Salazar [id number] 11/22/2014 06:05:54 11/22/2014 06:05:55 DIS Outpatient [id number] 08/27/2014 09:17:45 Document Registration [id number] 08/16/2014 15:57:29 Document Registration [id number] 08/16/2014 15:57:28 Document Registration [id number] 08/16/2014 15:57:27 Document Registration [id number] 08/16/2014 15:57:26 Document Registration [id number] 03/22/2017 23:37:29 03/22/2017 23:59:59 CLS Outpatient [id number] 03/26/2016 08:03:00 03/27/2016 09:42:00 DIS Outpatient NOREEN HINDS, Replaced by [facility] [id number] 03/26/2016 08:44:00 03/26/2016 23:59:59 CLS Outpatient JONAH SALAZAR [employer] [facility] R51 M25.519 H53.8 G91.9 [id number] 03/12/2016 07:47:00 03/12/2016 14:53:00 [id number]/10/2016 07:44:00 02/13/2016 14:24:00 [id number] 01/10/2016 08:00:00 01/14/2016 09:51:00 DIS Outpatient NOREEN HINDS, Replaced by [facility] [id number] 06/23/2018 13:06:00 06/23/2018 23:59:59 CLS Preadmit THELMA MENDOZA APRN [facility] [id number] 06/19/2018 13:20:00 06/19/2018 23:59:59 CLS Outpatient MIRIAM SIERRA MD [id number] 06/17/2018 14:05:00 06/17/2018 23:59:59 CLS Outpatient ALEJANDRINA PRADHAN APRN [facility] JET[facility]O KRAMER [id number] 06/16/2018 08:03:00 06/16/2018 23:59:59 CLS Outpatient THELMA MENDOZA APRN [facility] [id number] 06/15/2018 08:27:00 06/15/2018 09:45:00 DIS Outpatient [facility]LE[facility]DR[facility]ADHAN [facility] [id number] 05/12/2018 19:37:00 05/16/2018 14:05:00 DIS Inpatient KAREEM MARCH DO [facility] 4TH SEPSIS,UTI,SBO [id number] 05/03/2018 08:50:00 05/03/2018 23:59:59 CLS Outpatient KELLY THELMA R [employer]EVERAGE HOST [facility] [id number] 04/19/2018 10:52:00 04/19/2018 23:59:59 CLS Outpatient KELLY THELMA R [employer]EVERAGE HOST [facility] [id number] 04/05/2018 08:39:00 04/05/2018 23:59:59 CLS Outpatient KELLY THELMA R [employer]EVERAGE HOST [facility] [id number] 03/29/2018 08:52:00 03/29/2018 23:59:59 CLS Outpatient KELLY THELMA R [employer]EVERAGE HOST [facility] [id number] 03/22/2018 09:14:00 03/22/2018 23:59:59 CLS Outpatient KELLY THELMA R [employer]EVERAGE HOST [facility] [id number] 03/15/2018 09:03:00 03/15/2018 23:59:59 CLS Outpatient KELLY THELMA R BEVERAGE HOST [facility] [id number] 03/08/2018 08:48:00 03/08/2018 23:59:59 CLS Outpatient KELLY THELMA R [employer]EVERAGE HOST [facility] [id number] 03/01/2018 08:03:00 03/01/2018 23:59:59 CLS Outpatient WILLIAM PARKS MD [facility] [id number] 02/15/2018 08:05:00 02/15/2018 23:59:59 CLS Outpatient KELLY THELMA R [employer]EVERAGE HOST [facility] [id number] 02/08/2018 08:59:00 02/08/2018 23:59:59 CLS Outpatient KELLY THELMA R BEVERAGE HOST [facility] [id number] 02/03/2018 08:30:00 02/03/2018 23:59:59 CLS Outpatient THELMA MENDOZA R BEVERAGE HOST [facility] [id number] 01/25/2018 08:45:00 01/25/2018 23:59:59 CLS Outpatient KAMILLE MENDOZAN R [facility]EVERAGE [facility]OST [facility] [id number] 01/20/2018 09:18:00 01/20/2018 23:59:59 CLS Outpatient WILLIAM PARKS MD [facility] [id number] 01/13/2018 09:02:00 01/13/2018 23:59:59 CLS Outpatient THELMA MENDOZA R [facility]EVERAGE [facility]OST [facility] [id number] 01/04/2018 08:52:00 01/04/2018 23:59:59 CLS Outpatient KAMILLE MENDOZAN R BEVERAGE [facility]OST [facility] [id number] 12/14/2017 08:51:00 12/14/2017 23:59:59 CLS Outpatient THELMA MENDOZA R [facility]EVERAGE [facility]OST [facility] [id number] 12/07/2017 08:57:00 12/07/2017 23:59:59 CLS Outpatient KELLY THELMA R [facility]EVERAGE [facility]OST [facility] [id number] 11/30/2017 08:44:00 11/30/2017 23:59:59 CLS Outpatient WILLIAM PARKS MD [facility] [id number] 11/25/2017 08:37:00 11/25/2017 23:59:59 CLS Outpatient WILLIAM PARKS MD [facility] [id number] 11/18/2017 08:52:00 11/18/2017 23:59:59 CLS Outpatient THELMA MENDOZA [facility]OST [facility] [id number] 11/09/2017 10:15:00 11/09/2017 23:59:59 CLS Outpatient WILLIAM PARKS MD [facility] [id number] 11/02/2017 10:07:00 11/02/2017 23:59:59 CLS Outpatient THELMA MENDOZA APRN [facility] [id number] 10/27/2017 08:52:00 10/27/2017 23:59:59 CLS Outpatient WILLIAM PARKS MD [facility] [id number] 10/21/2017 08:30:00 10/21/2017 23:59:59 CLS Outpatient THELMA MENDOZA APRN [facility] [id number] 04/01/2017 11:15:00 04/01/2017 23:59:59 CLS Preadmit JADEN DO, MOTNY D [facility] HERNIA INCISIONAL, ABD PAIN [id number] 03/31/2017 13:54:00 03/31/2017 16:49:00 DIS Emergency RANDEE HINDS, SANIYA Lora [facility] ER DEC LOC [id number] 02/12/2017 11:12:00 02/12/2017 23:59:59 CLS Outpatient MARIELA HINDS, MIRIAM Geller [facility] BACK PAIN,NECK PAIN [id number] 06/03/2016 11:30:00 07/01/2016 16:34:00 DIS Outpatient JOHNNY GENAO [facility] LYMPHEDEMA [id number] 12/28/2017 09:00:00 Document Registration [id number] 12/21/2017 09:10:00 Document Registration [id number] 05/06/2017 12:52:06 05/06/2017 12:52:06 DIS Outpatient [id number] 11/29/2017 15:20:00 11/29/2017 23:59:59 CLS Outpatient JAN WU L[facility]
[2018-06-27 16:19] LABS: BASOPHILS % (AUTO) 0 % (0-10); EOSINOPHILS # (AUTO) 0.2 10^3/uL (0.0-0.3); EOSINOPHILS % (AUTO) 2 % (0-10); HEMATOCRIT 38 % (40-54); HEMOGLOBIN 12.5 G/DL (13.3-17.7); LYMPHOCYTES # (AUTO) 1.4 X 10^3 (1.0-4.0); LYMPHOCYTES % (AUTO) 16 % (12-44); MEAN CORPUSCULAR HEMOGLOBIN 28 PG (25-34); MEAN CORPUSCULAR HGB CONC 33 G/DL (32-36); MEAN CORPUSCULAR VOLUME 84 FL (80-99); MEAN PLATELET VOLUME 8.9 FL (7.4-10.4); MONOCYTES # (AUTO) 0.7 X 10^3 (0.0-1.0); MONOCYTES % (AUTO) 8 % (0-12); NEUTROPHILS % (AUTO) 75 % (42-75); PLATELET COUNT 253 10^3/uL (130-400); RED CELL DISTRIBUTION WIDTH 13.9 % (10.0-14.5); WHITE BLOOD COUNT 9.3 10^3/uL (4.3-11.0)
--- NOTE | 2018-06-27 16:23 | Diagnostic Imaging Report ---
INDICATION: Chest pain. Frontal chest obtained at 4:13 p.m. FINDINGS: Heart and mediastinal silhouette are normal in appearance. The lungs are clear. There is no pneumothorax or pleural fluid. Shunt catheter is seen over the right chest and appears to stop at the level of the right clavicle. IMPRESSION: No acute process in the chest. Dictated by: Dictated on workstation # [id number]
[2018-06-27 16:29] LABS: BACTERIA,URINE NEGATIVE /HPF; RBC,URINE 0-2 /HPF; WBC,URINE 0-2 /HPF
[2018-06-27 16:35] LABS: INR 0.9 (0.8-1.4); PROTHROMBIN TIME PATIENT 12.2 SEC (12.2-14.7)
[2018-06-27 16:42] LABS: ALANINE AMINOTRANSFERASE 36 U/L (0-55); ALBUMIN 4.1 GM/DL (3.2-4.5); ALKALINE PHOSPHATASE 103 U/L (40-136); BILIRUBIN,TOTAL 0.2 MG/DL (0.1-1.0); BUN/CREATININE RATIO 11; CALCIUM 9.4 MG/DL (8.5-10.1); CARBON DIOXIDE 21 MMOL/L (21-32); CHLORIDE 107 MMOL/L (98-107); CREATININE SERUM 0.79 MG/DL (0.60-1.30); GFR ESTIMATED > 60; GLUCOSE 99 MG/DL (70-105); LIPASE 31 U/L (8-78); MAGNESIUM 2.3 MG/DL (1.8-2.4); POTASSIUM 4.4 MMOL/L (3.6-5.0); SODIUM 139 MMOL/L (135-145); TOTAL PROTEIN 7.5 GM/DL (6.4-8.2)
[2018-06-27] MEDS ORDERED: NAPR-1071 PO (16:42)
[2018-06-27 16:49] LABS: MYOGLOBIN SERUM 31.2 NG/ML (10.0-92.0)
[2018-06-27 18:15] VITALS: BP 158/100
== END 2018-06-27 18:15 | disposition home or self-care (01) ==
LOC: EDUNIT# 15:47 → ER 15:48
DX: M94.0 Chondrocostal junction syndrome [Tietze] (principal); J45.909 Unspecified asthma, uncomplicated; I10 Essential (primary) hypertension; E11.9 Type 2 diabetes mellitus without complications; F32.9 Major depressive disorder, single episode, unspecified; Q05.9 Spina bifida, unspecified; Z87.19 Personal history of other diseases of the digestive system; Z91.040 Latex allergy status; Z79.82 Long term (current) use of aspirin; Z79.51 Long term (current) use of inhaled steroids; Z93.3 Colostomy status
CPT/HCPCS: 36415; 71045; 80053; 81000; 83690; 83735; 83874; 84484; 85025; 85610; 85730; 93005; 93041

== ENCOUNTER → 2018-06-28 | Outpatient (CLI) | payer MEDICARE, MEDICAID ==
[~2018-06-28] MED LIST changes: +NAPR-1071 PO
== END ==
LOC: WOUNDCARE 08:26
PROVIDERS: ATTEND Nurse Practitioner
DX: E11.622 Type 2 diabetes mellitus with other skin ulcer (principal); Q05.9 Spina bifida, unspecified; L98.492 Non-pressure chronic ulcer of skin of other sites with fat layer exposed; L88 Pyoderma gangrenosum
CPT/HCPCS: 99213

== ENCOUNTER → 2018-06-29 | Outpatient (CLI) | payer MEDICARE, MEDICAID | LOC: RAD 07:46 | PROVIDERS: ATTEND Family Medicine | DX: G91.9 Hydrocephalus, unspecified (principal); Z98.2 Presence of cerebrospinal fluid drainage device; Z53.8 Procedure and treatment not carried out for other reasons ==

== ENCOUNTER → 2018-07-07 | Outpatient (CLI) | payer MEDICARE, MEDICAID | LOC: WOUNDCARE 08:24 | PROVIDERS: ATTEND Nurse Practitioner | DX: E11.622 Type 2 diabetes mellitus with other skin ulcer (principal); Q05.9 Spina bifida, unspecified; L98.492 Non-pressure chronic ulcer of skin of other sites with fat layer exposed; L88 Pyoderma gangrenosum | CPT/HCPCS: 99213 ==

== ENCOUNTER → 2018-07-14 | Outpatient (CLI) | payer MEDICARE, MEDICAID | LOC: WOUNDCARE 08:28 | PROVIDERS: ATTEND Nurse Practitioner | DX: E11.622 Type 2 diabetes mellitus with other skin ulcer (principal); Q05.9 Spina bifida, unspecified; L98.492 Non-pressure chronic ulcer of skin of other sites with fat layer exposed; L88 Pyoderma gangrenosum | CPT/HCPCS: 99213 ==

== ENCOUNTER → 2018-07-21 | Outpatient (CLI) | payer MEDICARE, MEDICAID | LOC: WOUNDCARE 08:23 | PROVIDERS: ATTEND Nurse Practitioner | DX: E11.622 Type 2 diabetes mellitus with other skin ulcer (principal); Z05.9 Observation and evaluation of newborn for unspecified suspected condition ruled out; L98.491 Non-pressure chronic ulcer of skin of other sites limited to breakdown of skin | CPT/HCPCS: 99213 ==

== ENCOUNTER → 2018-08-04 | Outpatient (CLI) | payer MEDICARE, MEDICAID | LOC: WOUNDCARE 08:00 | PROVIDERS: ATTEND Nurse Practitioner | DX: E11.622 Type 2 diabetes mellitus with other skin ulcer (principal); Z05.9 Observation and evaluation of newborn for unspecified suspected condition ruled out; L98.491 Non-pressure chronic ulcer of skin of other sites limited to breakdown of skin | CPT/HCPCS: 99213 ==

== ENCOUNTER 2018-09-06 17:10 | Inpatient (IN) | payer MEDICARE, MEDICAID ==
[~2018-09-06] VITALS: Ht 162.6 cm; Wt 126.4 kg
[2018-09-06] MEDS ORDERED: ONDANSETRON 4 MG/2 ML (SDV) Z0FRAN ONE (17:35)
[2018-09-06] MEDS ORDERED: PROCHLORPERAZINE 10 MG/2ML INJ (COMPAZINE) IV ONE (18:00)
[2018-09-06] MEDS ORDERED: LACTATED RINGERS 1,000 ML IV ONE ×2 (18:00→23:20)
[2018-09-06] MEDS ORDERED: diphenhydrAMINE 50 MG/ML INJ (BENADRYL) IVP ONE (18:00)
[2018-09-06 18:06] LABS: BILIRUBIN,URINE NEGATIVE (NEGATIVE); CLARITY,URINE VERY CLOUDY; COLOR,URINE AMBER; GLUCOSE, URINE (UA) NEGATIVE (NEGATIVE); KETONES,URINE NEGATIVE (NEGATIVE); LEUKOCYTE ESTERASE ,URINE 3+ (NEGATIVE); NITRITE,URINE NEGATIVE (NEGATIVE); PH,URINE 7 (5-9); PROTEIN,URINE 4+ (NEGATIVE); UROBILINOGEN,URINE NORMAL (NORMAL)
[2018-09-06 18:16] LABS: BACTERIA,URINE LARGE /HPF; WBC,URINE TNTC /HPF
[2018-09-06 18:17] LABS: SQUAMOUS EPITHELIAL CELL,UR 0-2 /HPF; URINE OTHER 2-5 TRANS EPIS /HPF
[2018-09-06 18:28] LABS: BASOPHILS % (AUTO) 0 % (0-10); EOSINOPHILS # (AUTO) 0.3 10^3/uL (0.0-0.3); EOSINOPHILS % (AUTO) 3 % (0-10); HEMATOCRIT 48 % (40-54); HEMOGLOBIN 15.7 G/DL (13.3-17.7); LYMPHOCYTES # (AUTO) 1.4 X 10^3 (1.0-4.0); LYMPHOCYTES % (AUTO) 10 % (12-44); MEAN CORPUSCULAR HEMOGLOBIN 27 PG (25-34); MEAN CORPUSCULAR HGB CONC 33 G/DL (32-36); MEAN CORPUSCULAR VOLUME 82 FL (80-99); MEAN PLATELET VOLUME 9.3 FL (7.4-10.4); MONOCYTES # (AUTO) 0.9 X 10^3 (0.0-1.0); MONOCYTES % (AUTO) 6 % (0-12); NEUTROPHILS # (AUTO) 10.8 X 10^3 (1.8-7.8); NEUTROPHILS % (AUTO) 81 % (42-75); PLATELET COUNT 419 10^3/uL (130-400); RED CELL DISTRIBUTION WIDTH 14.7 % (10.0-14.5); WHITE BLOOD COUNT 13.4 10^3/uL (4.3-11.0)
[2018-09-06 18:38] LABS: INR 0.9 (0.8-1.4); PROTHROMBIN TIME PATIENT 12.6 SEC (12.2-14.7)
[2018-09-06 18:43] LABS: ALANINE AMINOTRANSFERASE 80 U/L (0-55); ALBUMIN 4.7 GM/DL (3.2-4.5); ALKALINE PHOSPHATASE 120 U/L (40-136); AMYLASE 67 U/L (25-125); BILIRUBIN,TOTAL 0.3 MG/DL (0.1-1.0); BUN/CREATININE RATIO 13; CALCIUM 10.9 MG/DL (8.5-10.1); CARBON DIOXIDE 20 MMOL/L (21-32); CHLORIDE 105 MMOL/L (98-107); CREATININE SERUM 1.08 MG/DL (0.60-1.30); GFR ESTIMATED > 60; GLUCOSE 124 MG/DL (70-105); LIPASE 30 U/L (8-78); MAGNESIUM 1.7 MG/DL (1.8-2.4); POTASSIUM 4.3 MMOL/L (3.6-5.0); SODIUM 141 MMOL/L (135-145); TOTAL PROTEIN 9.3 GM/DL (6.4-8.2)
[2018-09-06] MEDS ORDERED: NS IV 1000 ML 1,000 ML IV ONE (18:55)
[2018-09-06] MEDS ORDERED: PANTOPRAZOLE 40 MG (PROTONIX) VIAL IV STA (18:55)
[2018-09-06] MEDS ORDERED: ONDANSETRON 4 MG/2 ML (SDV) Z0FRAN IVP ONE (19:00)
--- NOTE | 2018-09-06 19:37 | Diagnostic Imaging Report ---
Portable chest compared to a prior study from June 27, 2018. INDICATION: Nausea and vomiting. FINDINGS: Assessment is limited given the portable technique and lordotic positioning of the patient. The lungs appear of low overall volume. The visualized portion of the right lung appears clear. There is some blunting of the left costophrenic angle, but a left effusion could not be excluded. Heart size has not significantly changed from the prior exam. IMPRESSION: 1. Low lung volumes accentuated by lordotic positioning. There is a possible left effusion. The visualized portions of the lungs demonstrate no alveolar consolidation. The central pulmonary vascularity appears appropriate. Dictated by: Dictated on workstation # [id number]
--- NOTE | 2018-09-06 19:48 | NUR ---
500ml of liquid stool drained from colostomy site
--- NOTE | 2018-09-06 19:58 | Diagnostic Imaging Report ---
PROCEDURE: CT abdomen and pelvis without contrast. TECHNIQUE: Multiple contiguous axial images were obtained through the abdomen and pelvis without the use of intravenous contrast. Auto Exposure Controls were utilized during the CT exam to meet ALARA standards for radiation dose reduction. INDICATION: Abdominal pain with nausea and vomiting. COMPARISON is made with previous study from 05/12/2018. FINDINGS: Calcified granuloma remain present at the right lung base. There is no focal infiltrate or evidence of an effusion. The liver again demonstrates steatosis without evidence of focal intrahepatic abnormality. The gallbladder is contracted without radiodense gallstone or evidence of biliary dilatation. The spleen appears appropriate in size. There is no adrenal mass. The pancreas demonstrates no focal abnormality. Extensive lobulation of the kidneys which could possibly related to prior renal scarring is unchanged. There is no current renal stone or hydronephrosis. As on the prior examination, there is a large ventral abdominal wall defect containing multiple loops of bowel. The stomach demonstrates a diminished degree of distention compared to the prior examination. There are again abnormally dilated small bowel loops particularly within the hernia sac. Distal loops of bowel appear decompressed and the colon extending to the patient's right lower quadrant colostomy is decompressed. The patient's prior rectal stump is unremarkable. The transition again appears to likely be as the bowel exits this hernia sac to the right of midline. There is no pneumatosis. There is no portal venous gas. There is no free air or free fluid. There is no evidence of abscess. There are a few scattered small central mesenteric lymph nodes which are unchanged. There is a suprapubic bladder catheter. The bladder is thickened. There is gas within the urinary bladder. There is an apparent chronic dislocation of the right hip which is unchanged. No acute osseous abnormality is demonstrated. IMPRESSION: 1. Large ventral abdominal wall defect. There is diastases of the rectus muscle with an associated hernia that contains multiple loops of bowel. The bowel loops within this hernia sac again appear to be abnormally dilated with the exiting bowel loops appearing to be decompressed to the level of the patient's right lower quadrant colostomy. Findings again suggest at least a partial small bowel obstruction. There is no pneumatosis or portal venous gas. There is no free fluid. 2. The patient's prior rectal stump is unremarkable. 3. Suprapubic catheter remains in place with a thickened appearance of the urinary bladder that may reflect cystitis. 4. Hepatic steatosis. 5. No free air, free fluid or evidence of abscess. 6. Stable scattered mildly prominent mesenteric lymph nodes. 7. Apparent chronic right hip dislocation. Dictated by: Dictated on workstation # [id number]
[2018-09-06] MEDS ORDERED: fentaNYL INJECTION 100 MCG/2 ML AMP IVP STA (20:47)
[2018-09-06 22:25] VITALS: BP 150/92
--- NOTE | 2018-09-06 22:30 | NUR ---
CHRISTEN CHRISTIANSON admitted to room 431-1, with an admitting diagnosis of PARTIAL SBO, UTI, on 09/06/18 from ED via [facility], accompanied by STAFF .CHRISTEN CHRISTIANSON introduced to surroundings, call light, bed controls, phone, TV, temperature control, lights, meal times, smoking policy, visitor policy, side rail policy, bathrooms and showers. Patient Rights given to patient in the handbook.CHRISTEN CHRISTIANSON verbalizes understanding that [facility] is not responsible for the loss or damage to any personal effects or valuables that are kept in the patients posession during their hospitalization.
[2018-09-06] MEDS: fentaNYL INJECTION 100 MCG/2 ML AMP IVP PRN ×2 (22:35→23:52)
--- OUTSIDE RECORDS SUMMARY | 2018-09-06 22:57 | XMS REPORT ---
Author Author DEV OLIVARES Organization [facility] Address [address] [place] [address] Care Team Providers Care Establishment Guide Name Role Phone DEV OLIVARES Unavailable PROBLEMS Type Condition ICD9-CM Code FNI71-OD Code Onset Dates Condition Status SNOMED Code Problem Mild episode of recurrent major depressive disorder F33.0 Active 819597645 Problem Anxiety F41.9 Active 85746167 Problem Depressive disorder, not elsewhere classified F32.9 Active 83135609 Problem Mild neurocognitive disorder G31.84 Active 552986259 ALLERGIES No Information ENCOUNTERS Encounter Location Date Diagnosis [place] [id number] [place] [phone] Dec, [facility] [address] [place] [id number] [place] [address] Aug, Anxiety F41.9 and Mild episode of recurrent major depressive disorder F33.0 [place] [address] [place] [id number] [place] [phone] Jul, Mild episode of recurrent major depressive disorder F33.0 and Anxiety F41.9 [place] [id number] [place] [address] Jul, Mild episode of recurrent major depressive disorder F33.0 and Anxiety F41.9 [place] [id number] [place] [address] Jan, Mild episode of recurrent major depressive disorder F33.0 and Anxiety F41.9 [place] [id number] [place] [address] Nov, Mild episode of recurrent major depressive disorder F33.0 and Anxiety F41.9 [place] [address] [place] [id number] [place] [address], [place] [address] Oct, Depressive disorder, not elsewhere classified F32.9 and Mild neurocognitive disorder G31.84 IMMUNIZATIONS No Known Immunizations SOCIAL HISTORY Never Assessed REASON FOR VISIT VIVIANA sahu/deborah renae ma PLAN OF CARE Activity Details Follow Up 6 Weeks Reason: VITAL SIGNS Heart Rate 110 bpm 2018-07-19 Respiratory Rate 20 2018-07-19 Blood pressure systolic 164 mmHg 2018-07-19 Blood pressure diastolic 112 mmHg 2018-07-19 MEDICATIONS Medication Instructions Dosage Frequency Start Date End Date Duration Status Hydrocodone-Acetaminophen 5-325 MG Orally every 6 hrs 1 tablet as needed 6h Active Fluticasone Propionate (Inhal) 50 MCG/BLIST 1 spray in each nostril Active Zyrtec Allergy 10 MG Orally Once a day 1 tablet 24h 30 day(s) Active Acetaminophen 500 MG Orally every 4 hrs 1 tablet as needed 4h Active Levetiracetam 500 MG Orally Twice a day 3 capsules 12h Active Allopurinol 100 MG Orally Once a day 1 tablet 24h Active Nystatin 307775 UNIT/ML Active Tacrolimus 0.1 % Externally Once a day 1 application to affected area 24h Active Reglan 10 MG Orally QID 1 tablet 6h Active Cymbalta 30 MG Orally Once a day caps (90mg) every morning 24h Active Multivitamin Adult - as directed Active Aspirin 325 MG 1 tablet Active Naproxen 500 MG Orally every 12 hrs 1 tablet with food or milk as needed 12h Active Diclofenac Sodium 1 % Active Protonix 40 MG Active Metoprolol Tartrate 25 MG Orally Twice a day 1/2 tablet 12h Active Pataday 0.2 % Active Preparation H 0.25-14-74.9 % Active Lactobacillus - Active Zofran 4 MG as directed Active RESULTS No Results PROCEDURES Procedure Date Ordered Result Body Site [facility] VISIT ESTABLISHED PATIENT July 19, 2018 INSTRUCTIONS MEDICATIONS ADMINISTERED No Known Medications MEDICAL (GENERAL) HISTORY Type Description Date Medical History siezures Medical History CP unspecified Medical History spina bifida unspecified Medical History paraplegia unspecified Medical History HTN Medical History nontraumatic intracerebral hemorrhage intraventricular Surgical History multiple for repair spina bifida and other complications Hospitalization History multiple for surgeries, sepsis
[2018-09-06 23:00] VITALS: BP 150/92
--- OUTSIDE RECORDS SUMMARY | 2018-09-06 23:05 | XMS REPORT | CCD ---
Author Author Angi Rodriguez Organization [facility] Address [address] [place] [address] Phone Care Team Providers Care Pyroglazer Name Role Phone PP Unavailable CCM Unavailable Summary Purpose Interface Exchange Insurance Providers Payer name Policy type / Coverage type Covered republican ID Effective Begin Date Effective End Date WPS Medicare Part B Medicare Part B [id number] 2018 Unknown [employer] in [place] Medicare Part B [id number] 2018 Unknown Family history Father Diagnosis Age At Onset Hyperlipidemia Unknown Hypertension Unknown Social History Social History Element Codes Description Effective Dates Living arrangements Unknown [facility] 11/05/2017 Marital status Unknown Alondra 04/07/2016 Number of children Unknown 0 04/07/2016 Employment Unknown Currently unemployed 04/07/[address]: 909260183 Never smoker 04/07/[address]: 667603270 Never drinks alcohol 04/07/2016 Allergies, Adverse Reactions, Alerts Substance Reaction Codes Entered Date Inactivated Date Status Latex Unknown 04/07/2016 No Inactive Date Active * NO KNOWN DRUG ALLERGIES Unknown 04/07/2016 No Inactive Date Active Past Medical History Illness Codes Condition Status Onset Date Resolved Date Essential (primary) hypertension ICD-9: 401.1 ICD-10: I10 Active 09/30/2016 Unknown Major depressive disorder, single episode, mild ICD-9: 296.21 ICD-10: F32.0 Active 08/09/2018 Unknown Morbid (severe) obesity due to excess calories ICD-9: 278.01 ICD-10: E66.01 Active 08/09/2018 Unknown Other generalized epilepsy and epileptic syndromes, not intractable, without status epilepticus ICD -9: 345.00 ICD-10: G40.409 Active 10/14/2017 Unknown Other seborrheic dermatitis ICD-9: 706.3 ICD-10: L21.8 Active 08/09/2018 Unknown Impacted cerumen, bilateral ICD-9: 380.4 ICD-10: H61.23 Active 05/31/2018 Unknown Other otitis externa, right ear ICD-9: 380.22 ICD-10: H60.8X1 Active 05/31/2018 Unknown Encounter for follow-up examination after completed treatment for conditions other than malignant neoplasm ICD-9: V67.59 ICD-10: Z09 Active 05/23/2018 Unknown Major depressive disorder, single episode, moderate ICD-9: 296.22 ICD-10: F32.1 Active 09/30/2016 Unknown Muscle spasm of back ICD-9: 724.8 ICD-10: M62.830 Active 02/10/2017 Unknown Other headache syndrome ICD-9: 339.89 ICD-10: G44.89 Active 12/07/2017 Unknown Weakness ICD-9: 780.79 ICD-10: R53.1 Active 05/23/2018 Unknown Pressure ulcer of contiguous site of back, buttock and hip , stage 3 ICD-9: 707.09 ICD-10: L89.43 Active 10/14/2017 Unknown Slow transit constipation ICD-9: [...] 09/30/2016 Active Major depressive disorder, single episode, mild ICD-9: 296.21 ICD-10: F32.0 08/09/2018 Active Morbid (severe) obesity due to excess calories ICD-9: 278.01 ICD-10: E66.01 08/09/2018 Active Other generalized epilepsy and epileptic syndromes, not intractable, without status epilepticus ICD -9: 345.00 ICD-10: G40.409 10/14/2017 Active Other seborrheic dermatitis ICD-9: 706.3 ICD-10: L21.8 08/09/2018 Active Impacted cerumen, bilateral ICD-9: 380.4 ICD-10: H61.23 05/31/2018 Active Other otitis externa, right ear ICD-9: 380.22 ICD-10: H60.8X1 05/31/2018 Active Encounter for follow-up examination after completed treatment for conditions other than malignant neoplasm ICD-9: V67.59 ICD-10: Z09 05/23/2018 Active Major depressive disorder, single episode, moderate ICD-9: 296.22 ICD-10: F32.1 09/30/2016 Active Muscle spasm of back ICD-9: 724.8 ICD-10: M62.830 02/10/2017 Active Other headache syndrome ICD-9: 339.89 ICD-10: G44.89 12/07/2017 Active Weakness ICD-9: 780.79 ICD-10: R53.1 05/23/2018 Active Pressure ulcer of contiguous site of back, buttock and hip , stage 3 ICD-9: 707.09 ICD-10: L89.43 10/14/2017 Active Slow transit constipation ICD-9: 564.01 [...] Start Date Stop Date Status Fill Instructions betamethasone valerate 0.1 % topical cream RxNorm: 536056 1 Application TOP BID on face and scalp 08/09/2018 09/07/2018 Active Saxenda 3 mg/0.5 mL (18 mg/3 mL) subcutaneous pen injector RxNorm: 9842609 0.5 Milliliter(s) SQ daily 08/09/2018 No Stop Date Active Cymbalta 30 mg capsule,delayed release RxNorm: 117560 3 Capsule(s) PO daily 08/09/2018 10/03/2018 Active Reglan 10 mg tablet RxNorm: 929473 1 Tablet(s) PO QID 201809/07/2018 Active ketoconazole 2 % topical cream RxNorm: 662126 1 Application TOP BID 08/09/2018 08/22/2018 Active hydrocodone 5 mg-acetaminophen 325 mg tablet RxNorm: 029533 1-2 Tablet(s) PO Q6 as needed 07/15/2018 08/13/2018 Active hydrocodone 5 mg-acetaminophen 325 mg tablet RxNorm: 840470 1-2 Tablet(s) PO Q6 as needed 06/20/2018 07/14/2018 Inactive ciprofloxacin 0.3 % eye drops RxNorm: 123454 1 Drop(s) otic (ear) BID 05/31/2018 06/06/2018 Inactive hydrocodone 5 mg-acetaminophen 325 mg tablet RxNorm: 832913 1-2 Tablet(s) PO Q6 as needed 03/08/2018 06/19/2018 Inactive hydrocodone 5 mg-acetaminophen 325 mg tablet RxNorm: 570246 1-2 Tablet(s) PO Q6 as needed 12/30/2017 03/07/2018 Inactive Cymbalta 30 mg capsule,delayed release RxNorm: 431426 3 Capsule(s) PO daily 12/07/2017 01/31/2018 Inactive levetiracetam 500 mg tablet RxNorm: 840179 3 Tablet(s) PO BID 10/14/2017 11/12/2017 Inactive aspirin 325 mg tablet RxNorm: 392660 1 Tablet(s) PO daily 201705/11/2018 Inactive metoprolol tartrate 25 mg tablet RxNorm: 896398 1/2 Tablet(s) PO BID 10/14/2017 11/12/2017 Inactive Protonix 40 mg tablet,delayed release RxNorm: 879776 1 Tablet(s) PO daily 10/14/2017 05/11/2018 Inactive hydrocodone 5 mg-acetaminophen 325 mg tablet RxNorm: 568946 1 Tablet(s) PO QID as needed 10/14/2017 12/29/2017 Inactive febuxostat 40 mg tablet RxNorm: 966794 1 Tablet(s) PO daily 08/08/2018 Inactive levetiracetam 1,000 mg tablet RxNorm: 238150 1 Tablet(s) PO BID 10/14/2017 08/08/2018 Inactive Reglan 10 mg tablet RxNorm: 767752 1 Tablet(s) PO QID 201711/12/2017 Inactive fluoxetine 20 mg tablet RxNorm: 220471 1 Tablet(s) PO daily 10/14/2017 Inactive Cymbalta 30 mg capsule,delayed release RxNorm: 903554 1 Capsule(s) PO daily 10/14/2017 12/06/2017 Inactive Zofran 4 mg tablet RxNorm: 344092 1 Tablet(s) PO TID as needed 09/20/2017 09/29/2017 Inactive hydrocodone 5 mg-acetaminophen 325 mg tablet RxNorm: 294590 1-2 Tablet(s) PO Q6 as needed 09/20/2017 10/12/2017 Inactive naproxen 500 mg tablet RxNorm: 319920 TAKE ONE TABLET BY MOUTH TWICE DAILY NEEDED 03/29/2017 09/24/2017 Inactive Generic For:*NAPROSYN 500 MG TABLET 2016 2:53:48 PM Prozac 10 mg capsule RxNorm: 383842 1 Capsule(s) PO daily 03/2910/13/2017 Inactive hydrochlorothiazide 12.5 mg capsule RxNorm: 017985 1 Capsule(s) PO daily 03/12/2017 04/10/2017 Inactive hydrochlorothiazide 12.5 mg capsule RxNorm: 953255 1 Capsule(s) PO daily 03/12/2017 03/11/2017 Inactive lisinopril 40 mg tablet RxNorm: 156927 1 Tablet(s) PO daily 03/07/2017 Inactive lisinopril 40 mg tablet RxNorm: 790092 1 Tablet(s) PO daily 04/06/2017 Inactive melatonin 3 mg tablet RxNorm: 441552 1 Tablet(s) PO QHS as needed insomnia 03/05/2017 No Stop Date Active Voltaren 1 % topical gel RxNorm: 916210 1 Application TOP QID as needed et at HS 02/23/2017 05/23/2017 Inactive Voltaren 1 % topical gel RxNorm: 499348 1 Application TOP QID as needed et at HS 02/03/2017 02/22/2017 Inactive lisinopril 20 mg tablet RxNorm: 030668 TAKE ONE TABLET BY MOUTH EVERY DAY 01/14/2017 03/05/2017 Inactive Generic For:*PRINIVIL 20 MG TABLET 01/13/2017 2:26: 55 PM lisinopril 20 mg tablet RxNorm: 311240 1 Tablet(s) PO daily 06/201601/13/2017 Inactive lisinopril 10 mg tablet RxNorm: 248102 1 Tablet(s) PO TAKE ONE TABLET BY MOUTH ONE TIME DAILY 11/27/2016 12/14/2016 Inactive Generic For:PRINIVIL 5 MG TABLET pt is out of medication 11/18/2016 3:16:14 PM lisinopril 5 mg tablet RxNorm: 931021 TAKE ONE TABLET BY MOUTH ONE TIME DAILY 11/24/2016 11/26/2016 Inactive Generic For:PRINIVIL 5 MG TABLET pt is out of medication 11/18/2016 3:16:14 PM Prozac 10 mg capsule RxNorm: 315941 1 Capsule(s) PO daily 10/2303/21/2017 Inactive Voltaren 1 % topical gel RxNorm: 091895 1 Application TOP QID as needed et at HS 10/16/2016 02/02/2017 Inactive Prozac 10 mg capsule RxNorm: 577148 1 Capsule(s) PO daily 10/0110/22/2016 Inactive Voltaren 1 % topical gel RxNorm: 604918 1 Application TOP QID as needed et at HS 09/23/2016 10/15/2016 Inactive Voltaren 1 % topical gel RxNorm: 554477 1 Application TOP QID as needed et at HS 09/23/2016 09/22/2016 Inactive Voltaren 1 % topical gel RxNorm: 647440 1 Application TOP QID as needed et at HS 09/23/2016 09/22/2016 Inactive Flonase Allergy Relief 50 mcg/actuation nasal spray, suspension RxNorm: 5600817 1 [place] NASAL each nostril BID as needed 09/11/2016 02/07/2017 Inactive Flonase Allergy Relief 50 mcg/actuation nasal spray, suspension RxNorm: 2523538 1 [place] NASAL each nostril BID as needed 09/11/2016 09/10/2016 Inactive lisinopril 5 mg tablet RxNorm: 734964 TAKE ONE TABLET BY MOUTH ONE TIME DAILY -LOT : for 90 days 08/25/2016 11/22/2016 Inactive naproxen 500 mg tablet RxNorm: 744024 1 Tablet(s) PO BID as needed 06/17/2016 03/28/2017 Inactive Zithromax Z-Robel 250 mg tablet RxNorm: 451226 1 Tablet(s) PO UD 06/05/2016 07/22/2016 Inactive z pack as directed- patient at [facility] Miralax 17 gram/dose oral powder RxNorm: 736310 1 PO BID 2016 No Stop Date Active Bactrim DS 800 mg-160 mg tablet RxNorm: 136953 1 Tablet(s) PO BID 05/06/2016 05/15/2016 Inactive Zithromax Z-Robel 250 mg tablet RxNorm: 623182 1 Tablet(s) PO daily 04/08/2016 04/12/2016 Inactive nystatin 100,000 unit/gram topical cream RxNorm: 708097 1 Gram(s) TOP BID No Start Date Active Tylenol Extra Strength 500 mg tablet RxNorm: 616575 Tablet(s) PO as needed No Start Date Active Zyrtec 10 mg tablet RxNorm: 7754601 1 Tablet(s) PO daily No Start Date Active Pataday 0.2 % eye drops RxNorm: 3187254 1 Drop(s) ophthalmic (eye) daily No Start Date Active Protonix 40 mg tablet,delayed release RxNorm: 697245 1 Tablet(s) PO daily No Start Date Active allopurinol 100 mg tablet RxNorm: 856164 1 Tablet(s) PO daily No Start Date Active Calmoseptine 0.44 %-20.6 % topical ointment RxNorm: 131960 1 Application TOP QID as needed No Start Date Active Miralax 17 gram/dose oral powder RxNorm: 178268 1 PO daily No Start Date 05/28/2016 Inactive lactobacillus acidophilus (bulk) RxNorm: 6205 miscellaneous No Start Date 08/08/2018 Inactive Flonase 50 mcg/actuation nasal spray,suspension RxNorm: 3992436 1 [place] NASAL BID No Start Date 09/11/2016 Inactive Ginkoba M-E oral RxNorm: 132297 oral No Start Date 08/08/2018 Inactive omeprazole 20 mg capsule,delayed release RxNorm: 388394 1 Capsule(s) PO daily No Start Date 10/13/2017 Inactive Vitamin C 500 mg tablet RxNorm: 037029 1 Tablet(s) PO daily No Start Date 08/08/2018 Inactive lisinopril 5 mg tablet RxNorm: 697320 1 Tablet(s) PO daily No Start Date 08/24/2016 Inactive Zofran 4 mg tablet RxNorm: 825448 1 Tablet(s) PO TID as needed No Start Date 09/19/2017 Inactive Zithromax Z-Robel oral RxNorm: oral No Start Date 04/07/2016 Inactive Zithromax Z-Robel 250 mg tablet RxNorm: 821868 1 Tablet(s) PO UD No Start Date 06/04/2016 Inactive z pack as directed- patient at [facility] Medication Administered No Medication Administered data Immunizations No Immunization data Assessments Condition Codes Effective Dates Morbid (severe) obesity due to excess calories ICD-10: E66.01 ICD-9: 278.01 08/09/2018 Major depressive disorder, single episode, mild ICD-10: F32.0 ICD-9: 296.21 08/09/2018 Other generalized epilepsy and epileptic syndromes, not intractable, without status epilepticus ICD-10: G40.409 ICD-9: 345.00 08/09/2018 Essential (primary) hypertension ICD-10: I10 ICD-9: 401.1 08/09/2018 Other seborrheic dermatitis ICD-10: L21.8 ICD-9: 706.3 08/09/2018 Impacted cerumen, bilateral ICD-10: H61.23 ICD-9: 380.4 05/31/2018 Other otitis externa, right ear ICD-10: H60.8X1 ICD-9: 380.22 05/31/2018 Major depressive disorder, single episode, moderate ICD-10: F32.1 ICD-9: 296.22 05/23/2018 Weakness ICD-10: R53.1 ICD-9: 780.79 05/23/2018 Encounter for follow-up examination after completed treatment for conditions other than malignant neoplasm ICD-10: Z09 ICD-9: V67.59 05/23/2018 Muscle spasm of back ICD-10: M62.830 ICD-9: 724.8 12/07/2017 Other headache syndrome ICD-10: G44.89 ICD-9: 339.89 12/07/2017 Pressure ulcer of contiguous site of back, buttock and hip, stage 3 ICD-10: L89.43 ICD-9: 707.09 11/04/2017 Slow transit constipation ICD-10: K59.01 ICD-9: 564.01 10/14/2017 Umbilical hernia without obstruction or gangrene ICD-10: K42.9 ICD-9: 553.1 03/23/2017 Pain in thoracic spine ICD-10: M54.6 ICD-9: 724.1 03/04/2017 Cervicalgia ICD-10: M54.2 ICD-9: 723.1 03/04/2017 Other insomnia ICD-10: G47.09 ICD-9: 327.09 03/04/2017 Lumbar spina bifida without hydrocephalus ICD-10: Q05.7 ICD-9: 741.93 12/16/2016 Bicipital tendinitis, left shoulder ICD-10: M75.22 ICD-9: [...] Visit Reason For Visit Effective Dates Notes weight gain/obesity 08/09/2018 otalgia 05/31/2018 Hospital Follow Up 05/23/2018 hypertension [...] Ord15 CALCIUM 9.5 mg/dL 06/14/2018 Culture Urine [id number] URINE CULTURE SEE NOTES 06/13/2018 Urine Culture [...] U-VOL VOLUME SUFFICIENT (10mL) 06/09/2018 Urinalysis Ord28 U-Yeast NEGATIVE 06/09/2018 Urinalysis Ord28 U-Com Culture to follow 06/09/2018 Culture Urine [id number] URINE CULTURE SEE NOTES 05/27/2018 Urine Culture [...] Ord15 CALCIUM 9.4 mg/dL 12/27/2017 Comp Metabolic Lar626 NA 142 mEq/L 10/15/2017 Comp Metabolic Usw739 K 4.2 mEq/L 10/15/2017 Comp Metabolic Zgi802 CL 107 mEq/L 10/15/2017 Comp Metabolic Dao882 CO2 27.0 mEq/L 10/15/2017 Comp Metabolic Dwl909 ANION GAP 12 10/15/2017 Comp Metabolic Gnl939 GLUCOSE 86 mg/dL 10/15/2017 Comp Metabolic Ccr686 Creat 0.6 mg/dL 10/15/2017 Comp Metabolic Wgx092 eGFR 179 ml/min/1.73m2 10/15/2017 Comp Metabolic Klc296 BUN 13 mg/dL 10/15/2017 Comp Metabolic Bxo496 B/C Ratio 22.8 Ratio 10/15/2017 Comp Metabolic Swx468 CALCIUM 9.6 mg/dL 10/15/2017 Comp Metabolic Gmc269 ALK PHOS 158 U/L 10/15/2017 Comp Metabolic Mkl716 AST(SGOT) 15 U/L 10/15/2017 Comp Metabolic Qtl359 ALT(SGPT) 29 U/L 10/15/2017 Comp Metabolic Nqn953 BILI T 0.2 mg/dL 10/15/2017 Comp Metabolic Sbc604 ALBUMIN 3.5 g/dL 10/15/2017 Comp Metabolic Agy297 TPRO 6.9 g/dL 10/15/2017 Comp Metabolic Osz591 GLOB 3.4 g/dL 10/15/2017 Comp Metabolic Mlh010 A/G Ratio 1.1 Ratio 10/15/2017 Comp Metabolic Beb241 Osmo 283 mOsmo 10/15/2017 Cbc With Differential Ord2 WBC 5.52 K/ul 10/15/2017 Cbc With Differential Ord2 RBC 4.23 M/ul 10/15/2017 Cbc With Differential Ord2 HGB 12.0 g/dl 10/15/2017 Cbc With Differential Ord2 HCT 36.9 % 10/15/2017 Cbc With Differential Ord2 Neut% 54.8 % 10/15/2017 Cbc With Differential Ord2 MCV 87.2 fl 10/15/2017 Cbc With Differential Ord2 Lymph% 32.2 % 10/15/2017 Cbc With Differential Ord2 MCH 28.4 pg 10/15/2017 Cbc With Differential Ord2 [place]% 8.3 % 10/15/2017 Cbc With Differential Ord2 [...] 1.78 K/ul 10/15/2017 Cbc With Differential Ord2 [place] ABS# 0.5 K/ul 10/15/2017 Cbc With Differential Ord2 Eos ABS# 0.2 K/ul 10/15/2017 Cbc With Differential Ord2 Baso ABS# 0.0 K/ul 10/15/2017 Tsh Ord6 TSH (3rd IS) 2.24 uIU/mL 10/15/2017 Renal Txv415 NA 144 mEq/L 09/17/2017 Renal Lxe443 K 3.6 mEq/L 09/17/2017 Renal Qhz382 CL 104 mEq/L 09/17/2017 Renal Pex675 CO2 28.0 mEq/L 09/17/2017 Renal Rsd183 ANION GAP 16 09/17/2017 Renal Jva061 Osmo 289 mOsmo 09/17/2017 Renal Kwh991 GLUCOSE 115 mg/dL 09/17/2017 Renal Fsz664 BUN 15 mg/dL 09/17/2017 Renal Aps427 Creat 0.9 mg/dL 09/17/2017 Renal Uuv582 eGFR 100 ml/min/1.73m2 09/17/2017 Renal Cgw661 B/C Ratio 16.0 Ratio 09/17/2017 Renal Oen629 CALCIUM 10.4 mg/dL 09/17/2017 Renal Kmy597 PHOS 3.9 mg/dL 09/17/2017 Renal Biw363 ALBUMIN 4.3 g/dL 09/17/2017 Magnesium Ord90 Mag [...] 28.6 pg 09/17/2017 Cbc With Differential Ord2 [place]% 9.9 % 09/17/2017 Cbc With Differential Ord2 [...] 1.85 K/ul 09/17/2017 Cbc With Differential Ord2 [place] ABS# 0.8 K/ul 09/17/2017 Cbc With Differential Ord2 Eos ABS# 0.4 K/ul 09/17/2017 Cbc With Differential Ord2 Baso ABS# 0.0 K/ul 09/17/2017 Comp Metabolic Uvx314 NA 138 mEq/L 02/04/2017 Comp Metabolic Tca808 K 4.5 mEq/L 02/04/2017 Comp Metabolic Uzc622 CL 98 mEq/L 02/04/2017 Comp Metabolic Jdg902 CO2 30.0 mEq/L 02/04/2017 Comp Metabolic Fyo115 ANION GAP 15 02/04/2017 Comp Metabolic Guw994 GLUCOSE 99 mg/dL 02/04/2017 Comp Metabolic Lvc147 Creat 0.6 mg/dL 02/04/2017 Comp Metabolic Qhn095 eGFR 183 ml/min/1.73m2 02/04/2017 Comp Metabolic Lje795 BUN 11 mg/dL 02/04/2017 Comp Metabolic Vyw481 B/C Ratio 19.6 Ratio 02/04/2017 Comp Metabolic Hny084 CALCIUM 9.5 mg/dL 02/04/2017 Comp Metabolic Pti658 ALK PHOS 59 U/L 02/04/2017 Comp Metabolic Vjb072 AST(SGOT) 14 U/L 02/04/2017 Comp Metabolic Nup826 ALT(SGPT) 15 U/L 02/04/2017 Comp Metabolic Ylp179 BILI T 0.3 mg/dL 02/04/2017 Comp Metabolic Cek589 ALBUMIN 4.0 g/dL 02/04/2017 Comp Metabolic Uyf156 TPRO 7.0 g/dL 02/04/2017 Comp Metabolic Uju157 GLOB 3.0 g/dL 02/04/2017 Comp Metabolic Wta106 A/G Ratio 1.4 Ratio 02/04/2017 Comp Metabolic Gut919 Osmo 275 mOsmo 02/04/2017 Review of Systems System Result Effective Dates Constitutional No chills 08/09/2018 Constitutional No diaphoresis 08/09/2018 Constitutional No fever 08/09/2018 Eyes No blindness 08/09/2018 Ears/Nose/Throat/Neck No nasal allergies 08/09/2018 Ears/Nose/Throat/Neck No nasal discharge 08/09/2018 Cardiovascular No chest pain/pressure Cardiovascular No dyspnea 08/09/2018 Respiratory No chest congestion 2018 Respiratory No cough 08/09/2018 Respiratory No dyspnea 08/09/2018 Gastrointestinal abdominal pain 2018 Gastrointestinal No constipation 2018 Gastrointestinal No diarrhea 08/09/2018 Gastrointestinal No nausea 08/09/2018 Gastrointestinal No vomiting 08/09/2018 Musculoskeletal back pain 08/09/2018 Neurologic No alteration of consciousness 08/09/2018 Neurologic headache 08/09/2018 Neurologic No mental status change 2018 Psychiatric No anxiety 08/09/2018 Psychiatric depression 08/09/2018 Constitutional No recent illness 2018 Dermatologic rash 08/09/2018 Endocrine obesity 08/09/2018 Constitutional No recent illness 2018 Constitutional No [...] Effective Dates Notes Full Exam - General 1995 Constitutional general appearance Overall: well developed 08/09/2018 None Full Exam - General 1994 Constitutional general appearance Overall: in no acute distress 08/09/2018 None Full Exam - General 1994 Constitutional general appearance Overall: well nourished 08/09/2018 None Full Exam - General 1995 Eyes conjunctiva /eyelids Overall: conjunctiva clear 08/09/2018 None Full Exam - General 1995 Eyes conjunctiva /eyelids Overall: cornea clear 08/09/2018 None Full Exam - General 1994 Eyes conjunctiva /eyelids Overall: eyelids normal 08/09/2018 None Full Exam - General 1995 Ears/Nose/Throat lips/teeth/gingiva Overall: benign lips 08/09/2018 None Full Exam - General 1995 Ears/Nose/Throat oral cavity/pharynx/larynx Overall: oral mucosa clear 08/09/2018 None Full Exam - General 1994 Respiratory auscultation Overall: breath sounds clear bilaterally 08/09/2018 None Full Exam - General 1994 Respiratory respiratory effort/rhythm Overall: no retractions 08/09/2018 None Full Exam - General 1994 Respiratory respiratory effort/rhythm Overall: normal rate 08/09/2018 None Full Exam - General 1994 Cardiovascular auscultation of heart Overall: regular rate 08/09/2018 None Full Exam - General 1994 Cardiovascular auscultation of heart Overall: normal heart sounds 08/09/2018 None Full Exam - General 1994 Abdomen abdominal exam Overall: normal bowel sounds 08/09/2018 None Full Exam - General 1994 Musculoskeletal head and neck Head: deformity of skull 08/09/2018 scars Full Exam - General 1994 Neurologic cranial nerves Overall: crainial nerves 2 - 12 grossly intact 08/09/2018 None Full Exam - General 1994 Psychiatric orientation/consciousness Overall: oriented to person, place and time 08/09/2018 None Full Exam - General 1994 Psychiatric mood and affect Overall: normal mood and affect 08/09/2018 None Full Exam - General 1994 Psychiatric appearance Overall: well-groomed, good eye contact 08/09/2018 None Full Exam - General 1994 Integument inspection of skin Dermatitis: dryness/ flaking 08/09/2018 on face and scalp Full Exam - ENT Constitutional general appearance [...] No Procedures data Vital Signs Date Vital 08/09/2018 Blood Pressure 1: 130/80 Code : 8480-6 Heart Rate 1: 110 bpm Height: SpO2: 96% Weight: 05/31/2018 Height: Weight: 05/23/2018 Blood Pressure 1: [...] Name Status Result Effective Date Notes Location globally None Quality worsening None Pertinent Findings Denies dyspnea 08/09/2018 None Triggers change in diet 08/09/2018 None Alleviating Factors medication 08/09/2018 None Location on the right 05/31/2018 None Quality [...] data Encounters Encounter Performer Location Codes Date () [id number] EST. PATIENT, LEVEL IV Diagnosis: Essential (primary) hypertension[ICD10: I10] Diagnosis: Other seborrheic dermatitis[ICD10: L21.8] Diagnosis: Other generalized epilepsy and epileptic syndromes, not intractable, without status epilepticus[ICD10: G40.409] Diagnosis: Major depressive disorder, single episode, mild[ICD10: F32.0] Diagnosis: Morbid (severe) obesity due to excess calories[ICD10: E66.01] Anila [facility]ez MD, [facility] CPT-4: 64775 08/09/2018 [id number] EST. PATIENT, LEVEL III Diagnosis: Impacted cerumen, bilateral[ICD10: H61.23] Diagnosis: Other otitis externa, right ear[ICD10: H60.8X1] Carrie Nuñez MD, [facility] CPT-4: 14520 05/31/2018 [id number] EST. PATIENT, LEVEL III Diagnosis: Essential (primary) hypertension[ICD10: I10] Diagnosis: Major depressive disorder, single episode, moderate[ICD10: F32.1] Diagnosis: Encounter for follow-up examination after completed treatment for conditions other than malignant neoplasm[ICD10: Z09] Diagnosis: Weakness[ICD10: R53.1] Carrie Nuñez MD, [facility] CPT-4: 21020 05/23/2018 [id number]) 08492 EST. PATIENT, LEVEL IV Diagnosis: Essential (primary) hypertension[ICD10: I10] Diagnosis: Major depressive disorder, single episode, moderate[ICD10: F32.1] Diagnosis: Muscle spasm of back[ICD10: M62.830] Diagnosis: Other headache syndrome[ICD10: G44.89] Anila Nuñez MD, [facility] CPT-4: 81213 12/07/2017 ([id number]) 88995 EST. PATIENT, LEVEL IV Diagnosis: Essential (primary) hypertension[ICD10: I10] Diagnosis: Major depressive disorder, single episode, moderate[ICD10: F32.1] Diagnosis: Pressure ulcer of contiguous site of back, buttock and hip, stage 3[ ICD10: L89.43] Anila Nuñez MD, [facility] CPT-4: 03990 11/04/2017 ([id number]) 52298 EST. PATIENT, LEVEL V Diagnosis: Essential (primary) hypertension[ICD10: I10] Diagnosis: Major depressive disorder, single episode, moderate[ICD10: F32.1] Diagnosis: Pressure ulcer of contiguous site of back, buttock and hip, stage 3[ ICD10: L89.43] Diagnosis: Slow transit constipation[ICD10: K59.01] Diagnosis: Other generalized epilepsy and epileptic syndromes, not intractable, without status epilepticus[ICD10: G40.409] Anila Nuñez MD, [facility] CPT- 4: 17292 10/14/2017 80429 EST. PATIENT, LEVEL IV Diagnosis: Umbilical hernia without obstruction or gangrene[ICD10: K42.9] Carrie Nuñez MD, [facility] CPT-4: 29111 03/23/2017 [id number] EST. PATIENT, LEVEL IV Diagnosis: Other insomnia[ICD10: G47.09] Diagnosis: Essential (primary) hypertension[ICD10: I10] Diagnosis: Pain in thoracic spine[ICD10: M54.6] Diagnosis: Cervicalgia[ICD10: M54.2] Carrie Nuñez MD, [facility] CPT-4: 37024 03/04/2017 [id number] EST. PATIENT, LEVEL III Diagnosis: Cervicalgia[ICD10: M54.2] Diagnosis: Pain in thoracic spine[ICD10: M54.6] Diagnosis: Muscle spasm of back[ICD10: M62.830] Carrie Nuñez MD, [facility] CPT-4: 40665 02/10/2017 84002 EST. PATIENT, LEVEL IV Diagnosis: Essential (primary) hypertension[ICD10: I10] Diagnosis: Lumbar spina bifida without hydrocephalus[ICD10: Q05.7] Carrie Nuñez MD, [facility] CPT-4: 78427 12/16/2016 [id number] EST. PATIENT, LEVEL IV Diagnosis: Essential (primary) hypertension[ICD10: I10] Diagnosis: Major depressive disorder, single episode, mild[ICD10: F32.0] Carrie Nuñez MD , [facility] CPT-4: 43807 09/30/2016 [id number]) [id number] EST. PATIENT, LEVEL III Diagnosis: Bicipital tendinitis, left shoulder[ICD10: M75.22] Diagnosis: Pain in right wrist[ICD10: M25.531] Diagnosis: Pain in left wrist[ICD10: M25.532] Angi Nuñez MD, [facility] CPT-4: 65341 07/23/2016 53894 EST. PATIENT, LEVEL III Diagnosis: Pain in left shoulder[ICD10: M25.512] Diagnosis: Pain in left wrist[ICD10: M25.532] Carrie Nuñez MD, [facility] CPT-4: 23298 06/17/2016 63096 EST. 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 Hypertension - well controlled - continue with [...] situational exposure. No change in current medications. Epilepsy - continue on current regimen, monitor symptoms. Morbid obesity with lack of sensation of satiety - rx for saxenda 08/09/2018 Patient Education: Patient Medication Summary Completed 08/09/2018 Patient Education: Saxenda - 18+ Completed 08/09/2018 Patient Education: Obesity Completed 08/09/2018 Visit Plan: Cerumen Impaction - The impacted [...] worsen acutely. 05/31/2018 Appointment: Carrie Raymond WPtel: [address] [place], [place] [id number] (15 min) Moderate 05/31/2018 Patient Education: Patient [...] and transfers 05/23/2018 Appointment: Carrie Raymond WPtel: [facility]5 [facility] (30 min) Complex 05/23/2018 Patient Education: [...] monitor symptoms. 12/07/2017 Appointment: Anila Nuñez WPtel: [facility] (15 min) Moderate 12/07/2017 Patient Education: Patient Medication Summary Completed 12/07/2017 Referral: [facility] Referral Initiated 11/09/2017 Care Plan: Referral Order SNOMED-CT : [id number] Pending 11/05/2017 Visit Plan: Hypertension - well [...] [place] - we will therefore refer to [facility] Referral to Dr. Murdock for removal of Peg tube. 11/04/2017 Appointment: Anila Nuñez WPtel: [facility]5 [facility] (15 min) Moderate 11/04/2017 Patient Education: Patient Medication Summary Completed 11/04/2017 Appointment: Anila Nuñez WPtel: [facility]5 [facility] (15 min) Moderate 10/28/2017 Visit Plan: Hypertension [...] Dr. Hargrove. 10/14/2017 Appointment: Anila Nuñez WPtel: [address] [place], [place] [id number] (30 min) Complex 10/14/2017 Patient Education: Patient Medication Summary Completed 10/14/2017 Appointment: Anila Nuñez WPtel: [address] [place], [place] [id number] (30 min) Complex 09/21/2017 Referral: Jorje Harden HPtel:[phone] [facility] [place] Referral Completed 03/29/2017 Care Plan: Referral Order SNOMED-CT : [id number] Pending 03/24/2017 Visit Plan: Umbilical hernia - reducible, mildly tender to palpation - no skin or color changes - warm and dry to the touch - will refer to surgeon for evaluation - pt is to notify clinic or go to the ER for any acute changes or concerns. 03/23/2017 [facility]ment: [facility] [facility] ([facility] min) Complex 03/23/2017 Patient Education: Patient [...] concerns. 03/04/2017 App[facility]ment: [phone] [facility] ([facility] min) Complex 03/04/2017 Patient Education: Patient [...] this patient. 09/30/2016 Appointment: [facility] [facility] (15 min) Moderate 09/30/2016 Patient Education: Patient [...] plan. 07/23/2016 Appointment: [facility] [phone] [phone] [place] (15 min) Moderate 07/23/2016 Patient Education: [...] in pain. 05/06/2016 Appointment: Carrie Raymond WPtel: [facility] (15 min) Moderate 05/06/2016 Patient Education: Patient [...] of spina bifida with hydrocephalus-sees neurologist in [place]-due for appt Avayzflsoxdk-oikkdbk-rsdiysaw miralax 04/07/2016 Appointment: Angi Rodriguez WPtel: [facility]5 [facility] [place] [address] New Patient 04/07/2016 Patient Education: Patient Medication Summary Completed 04/07/2016 Referral: [facility] Referral Appointment Requested Referral: Jorje Harden HPtel:[phone] [place] [address] Referral Appointment Confirmed Instructions Comment PT TO [...] for any acute changes or concerns. . Seborrhea - betamethasone cream and miconazole cream to be used on face and pt to also have selsun blue or other dandruff shampoo used instead of body wash on his face and head. Hypertension - well controlled - continue with [...] situational exposure. No change in current medications. Epilepsy - continue on current regimen, monitor symptoms. Morbid obesity with lack of sensation of satiety - rx for saxenda . Insomnia - Pt has been advised [...] refer to Dr. Hargrove. OT AT [facility] TO EVALUATE AND TREAT LYMPHEDEMA DUODERM COCCYX [...] of spina bifida with hydrocephalus-sees neurologist in [place]-due for appt Tgdjubqkjicz-ecxjikp-ahogmsje miralax . Cerumen Impaction - The impacted [...] [place] - we will therefore refer to [facility] Referral to Dr. Murdock for removal [...]
--- OUTSIDE RECORDS SUMMARY | 2018-09-06 23:06 | XMS REPORT | CCD ---
Author Author Angi Rodriguez Organization [facility] Address [address] [place] [address] Phone Care Team Providers Care Offset Label Rewinder Name Role Phone PP Unavailable CCM Unavailable Summary Purpose Interface Exchange Insurance Providers Payer name Policy type / Coverage type Covered alliance party ID Effective Begin Date Effective End Date WPS Medicare Part B Medicare Part B [id number] 2018 Unknown [employer] in [place] Medicare Part B [id number] 2018 Unknown Family history Father Diagnosis Age At Onset Hyperlipidemia Unknown Hypertension Unknown Social History Social History Element Codes Description Effective Dates Living arrangements Unknown Senior Living [facility] 11/05/2017 Marital status Unknown Alondra 04/07/2016 Number of children Unknown 0 04/07/2016 Employment Unknown Currently unemployed 04/07/[address]: 210920744 Never smoker 04/07/[address]: 967772600 Never drinks alcohol 04/07/2016 Allergies, Adverse Reactions, [...] hydrocodone 5 mg-acetaminophen 325 mg tablet RxNorm: 317080 1-2 Tablet(s) PO Q6 as needed 07/15/2018 08/13/2018 Active hydrocodone 5 mg-acetaminophen 325 mg tablet RxNorm: 966995 1-2 Tablet(s) PO Q6 as needed 06/20/2018 07/14/2018 Inactive ciprofloxacin 0.3 % eye drops RxNorm: 593815 1 Drop(s) otic (ear) BID 05/31/2018 06/06/2018 Inactive hydrocodone 5 mg-acetaminophen 325 mg tablet RxNorm: 186717 1-2 Tablet(s) PO Q6 as needed 03/08/2018 06/19/2018 Inactive hydrocodone 5 mg-acetaminophen 325 mg tablet RxNorm: 052743 1-2 Tablet(s) PO Q6 as needed 12/30/2017 03/07/2018 Inactive Cymbalta 30 mg capsule,delayed release RxNorm: 185513 3 Capsule(s) PO daily 12/07/2017 01/31/2018 Inactive febuxostat 40 mg tablet RxNorm: 140371 1 Tablet(s) PO daily 05/11/2018 Inactive levetiracetam 1,000 mg tablet RxNorm: 163322 1 Tablet(s) PO BID 10/14/2017 05/11/2018 Inactive levetiracetam 500 mg tablet RxNorm: 898991 3 Tablet(s) PO BID 10/14/2017 11/12/2017 Inactive aspirin 325 mg tablet RxNorm: 111118 1 Tablet(s) PO daily 201705/11/2018 Inactive metoprolol tartrate 25 mg tablet RxNorm: 610824 1/2 Tablet(s) PO BID 10/14/2017 11/12/2017 Inactive Protonix 40 mg tablet,delayed release RxNorm: 673578 1 Tablet(s) PO daily 10/14/2017 05/11/2018 Inactive hydrocodone 5 mg-acetaminophen 325 mg tablet RxNorm: 574525 1 Tablet(s) PO QID as needed 10/14/2017 12/29/2017 Inactive Reglan 10 mg tablet RxNorm: 099698 1 Tablet(s) PO QID 201711/12/2017 Inactive fluoxetine 20 mg tablet RxNorm: 177189 1 Tablet(s) PO daily 10/14/2017 Inactive Cymbalta 30 mg capsule,delayed release RxNorm: 508587 1 Capsule(s) PO daily 10/14/2017 12/06/2017 Inactive Zofran 4 mg tablet RxNorm: 028220 1 Tablet(s) PO TID as needed 09/20/2017 09/29/2017 Inactive hydrocodone 5 mg-acetaminophen 325 mg tablet RxNorm: 589953 1-2 Tablet(s) PO Q6 as needed 09/20/2017 10/12/2017 Inactive naproxen 500 mg tablet RxNorm: 341108 TAKE ONE TABLET BY MOUTH TWICE DAILY NEEDED 03/29/2017 09/24/2017 Inactive Generic For:*NAPROSYN 500 MG TABLET 2016 2:53:48 PM Prozac 10 mg capsule RxNorm: 523351 1 Capsule(s) PO daily 03/2910/13/2017 Inactive hydrochlorothiazide 12.5 mg capsule RxNorm: 560115 1 Capsule(s) PO daily 03/12/2017 04/10/2017 Inactive hydrochlorothiazide 12.5 mg capsule RxNorm: 664210 1 Capsule(s) PO daily 03/12/2017 03/11/2017 Inactive lisinopril 40 mg tablet RxNorm: 956889 1 Tablet(s) PO daily 03/07/2017 Inactive lisinopril 40 mg tablet RxNorm: 092089 1 Tablet(s) PO daily 04/06/2017 Inactive melatonin 3 mg tablet RxNorm: 439838 1 Tablet(s) PO QHS as needed insomnia 03/05/2017 No Stop Date Active Voltaren 1 % topical gel RxNorm: 503434 1 Application TOP QID as needed et at HS 02/23/2017 05/23/2017 Inactive Voltaren 1 % topical gel RxNorm: 854936 1 Application TOP QID as needed et at HS 02/03/2017 02/22/2017 Inactive lisinopril 20 mg tablet RxNorm: 977099 TAKE ONE TABLET BY MOUTH EVERY DAY 01/14/2017 03/05/2017 Inactive Generic For:*PRINIVIL 20 MG TABLET 01/13/2017 2:26: 55 PM lisinopril 20 mg tablet RxNorm: 258060 1 Tablet(s) PO daily 06/201601/13/2017 Inactive lisinopril 10 mg tablet RxNorm: 581749 1 Tablet(s) PO TAKE ONE TABLET BY MOUTH ONE TIME DAILY 11/27/2016 12/14/2016 Inactive Generic For:PRINIVIL 5 MG TABLET pt is out of medication 11/18/2016 3:16:14 PM lisinopril 5 mg tablet RxNorm: 375916 TAKE ONE TABLET BY MOUTH ONE TIME DAILY 11/24/2016 11/26/2016 Inactive Generic For:PRINIVIL 5 MG TABLET pt is out of medication 11/18/2016 3:16:14 PM Prozac 10 mg capsule RxNorm: 594592 1 Capsule(s) PO daily 10/2303/21/2017 Inactive Voltaren 1 % topical gel RxNorm: 236354 1 Application TOP QID as needed et at HS 10/16/2016 02/02/2017 Inactive Prozac 10 mg capsule RxNorm: 380891 1 Capsule(s) PO daily 10/0110/22/2016 Inactive Voltaren 1 % topical gel RxNorm: 750691 1 Application TOP QID as needed et at HS 09/23/2016 10/15/2016 Inactive Voltaren 1 % topical gel RxNorm: 241981 1 Application TOP QID as needed et at HS 09/23/2016 09/22/2016 Inactive Voltaren 1 % topical gel RxNorm: 779473 1 Application TOP QID as needed et at HS 09/23/2016 09/22/2016 Inactive Flonase Allergy Relief 50 mcg/actuation nasal spray, suspension RxNorm: 2786512 1 [place] NASAL each nostril BID as needed 09/11/2016 02/07/2017 Inactive Flonase Allergy Relief 50 mcg/actuation nasal spray, suspension RxNorm: 0079936 1 [place] NASAL each nostril BID as needed 09/11/2016 09/10/2016 Inactive lisinopril 5 mg tablet RxNorm: 934477 TAKE ONE TABLET BY MOUTH ONE TIME DAILY -LOT : for 90 days 08/25/2016 11/22/2016 Inactive naproxen 500 mg tablet RxNorm: 012589 1 Tablet(s) PO BID as needed 06/17/2016 03/28/2017 Inactive Zithromax Z-Robel 250 mg tablet RxNorm: 799539 1 Tablet(s) PO UD 06/05/2016 07/22/2016 Inactive z pack as directed- patient at [facility] Miralax 17 gram/dose oral powder RxNorm: 796703 1 PO BID 2016 No Stop Date Active Bactrim DS 800 mg-160 mg tablet RxNorm: 427390 1 Tablet(s) PO BID 05/06/2016 05/15/2016 Inactive Zithromax Z-Robel 250 mg tablet RxNorm: 235404 1 Tablet(s) PO daily 04/08/2016 04/12/2016 Inactive nystatin 100,000 unit/gram topical cream RxNorm: 662070 1 Gram(s) TOP BID No Start Date Active Tylenol Extra Strength 500 mg tablet RxNorm: 744870 Tablet(s) PO as needed No Start Date Active lactobacillus acidophilus (bulk) RxNorm: 6205 miscellaneous No Start Date Active Zyrtec 10 mg tablet RxNorm: 7653150 1 Tablet(s) PO daily No Start Date Active Pataday 0.2 % eye drops RxNorm: 5760873 1 Drop(s) ophthalmic (eye) daily No Start Date Active Ginkoba M-E oral RxNorm: 266857 oral No Start Date Active Vitamin C 500 mg tablet RxNorm: 152482 1 Tablet(s) PO daily No Start Date Active Calmoseptine 0.44 %-20.6 % topical ointment RxNorm: 969384 1 Application TOP QID as needed No Start Date Active Miralax 17 gram/dose oral powder RxNorm: 523685 1 PO daily No Start Date 05/28/2016 Inactive Flonase 50 mcg/actuation nasal spray,suspension RxNorm: 3434465 1 [place] NASAL BID No Start Date 09/11/2016 Inactive omeprazole 20 mg capsule,delayed release RxNorm: 919649 1 Capsule(s) PO daily No Start Date 10/13/2017 Inactive lisinopril 5 mg tablet RxNorm: 900111 1 Tablet(s) PO daily No Start Date 08/24/2016 Inactive Zofran 4 mg tablet RxNorm: 110195 1 Tablet(s) PO TID as needed No Start Date 09/19/2017 Inactive Zithromax Z-Robel oral RxNorm: oral No Start Date 04/07/2016 Inactive Zithromax Z-Robel 250 mg tablet RxNorm: 680126 1 Tablet(s) PO UD No Start Date 06/04/2016 Inactive z pack as directed- patient at [facility] Medication Administered No Medication Administered data Immunizations No Immunization data Assessments Condition Codes Effective Dates Other otitis externa, right ear ICD-10: H60.8X1 ICD-9: 380.22 05/31/2018 Impacted cerumen, bilateral ICD-10: H61.23 ICD-9: 380.4 05/31/2018 Major depressive disorder, single episode, moderate ICD-10: F32.1 ICD-9: 296.22 05/23/2018 Weakness ICD-10: R53.1 ICD-9: 780.79 05/23/2018 Encounter for follow-up examination after completed treatment for conditions other than malignant neoplasm ICD-10: Z09 ICD-9: V67.59 05/23/2018 Essential (primary) hypertension ICD-10: I10 ICD-9: 401.1 05/23/2018 Muscle spasm of back ICD-10: M62.830 [...] Ord15 CALCIUM 9.5 mg/dL 06/14/2018 Culture Urine [id number] URINE CULTURE SEE NOTES 06/13/2018 Urine Culture [...] U-Com Culture to follow 06/09/2018 Culture Urine [id number] URINE CULTURE SEE NOTES 05/27/2018 Urine Culture [...] 12/27/2017 Metabolic Ord15 CALCIUM 9.4 mg/dL 12/27/2017 Tsh Ord6 TSH (3rd IS) 2.24 uIU/mL 10/15/2017 Cbc With Differential Ord2 WBC 5.52 [...] 28.4 pg 10/15/2017 Cbc With Differential Ord2 [place]% 8.3 % 10/15/2017 Cbc With Differential Ord2 [...] 1.78 K/ul 10/15/2017 Cbc With Differential Ord2 [place] ABS# 0.5 K/ul 10/15/2017 Cbc With Differential Ord2 Eos ABS# 0.2 K/ul 10/15/2017 Cbc With Differential Ord2 Baso ABS# 0.0 K/ul 10/15/2017 Comp Metabolic Zpe857 NA 142 mEq/L 10/15/2017 Comp Metabolic Qvz832 K 4.2 mEq/L 10/15/2017 Comp Metabolic Eay684 CL 107 mEq/L 10/15/2017 Comp Metabolic Opx131 CO2 27.0 mEq/L 10/15/2017 Comp Metabolic Eqo077 ANION GAP 12 10/15/2017 Comp Metabolic Qyh718 GLUCOSE 86 mg/dL 10/15/2017 Comp Metabolic Fpr041 Creat 0.6 mg/dL 10/15/2017 Comp Metabolic Hny664 eGFR 179 ml/min/1.73m2 10/15/2017 Comp Metabolic Wxw363 BUN 13 mg/dL 10/15/2017 Comp Metabolic Cer479 B/C Ratio 22.8 Ratio 10/15/2017 Comp Metabolic Bnv358 CALCIUM 9.6 mg/dL 10/15/2017 Comp Metabolic Imr355 ALK PHOS 158 U/L 10/15/2017 Comp Metabolic Vdm049 AST(SGOT) 15 U/L 10/15/2017 Comp Metabolic Cyf613 ALT(SGPT) 29 U/L 10/15/2017 Comp Metabolic Url272 BILI T 0.2 mg/dL 10/15/2017 Comp Metabolic Jvw388 ALBUMIN 3.5 g/dL 10/15/2017 Comp Metabolic Kix394 TPRO 6.9 g/dL 10/15/2017 Comp Metabolic Dsm240 GLOB 3.4 g/dL 10/15/2017 Comp Metabolic Ert930 A/G Ratio 1.1 Ratio 10/15/2017 Comp Metabolic Kfv402 Osmo 283 mOsmo 10/15/2017 Cbc With Differential Ord2 WBC 8.22 K/ul [...] 28.6 pg 09/17/2017 Cbc With Differential Ord2 [place]% 9.9 % 09/17/2017 Cbc With Differential Ord2 [...] 1.85 K/ul 09/17/2017 Cbc With Differential Ord2 [place] ABS# 0.8 K/ul 09/17/2017 Cbc With Differential Ord2 Eos ABS# 0.4 K/ul 09/17/2017 Cbc With Differential Ord2 Baso ABS# 0.0 K/ul 09/17/2017 Magnesium Ord90 Mag 1.6 mg/dL 09/17/2017 Renal Gna026 NA 144 mEq/L 09/17/2017 Renal Qhc691 K 3.6 mEq/L 09/17/2017 Renal Vrg702 CL 104 mEq/L 09/17/2017 Renal Igp802 CO2 28.0 mEq/L 09/17/2017 Renal Xqj243 ANION GAP 16 09/17/2017 Renal Cae078 Osmo 289 mOsmo 09/17/2017 Renal Eis594 GLUCOSE 115 mg/dL 09/17/2017 Renal Ere037 BUN 15 mg/dL 09/17/2017 Renal Qog711 Creat 0.9 mg/dL 09/17/2017 Renal Tmp948 eGFR 100 ml/min/1.73m2 09/17/2017 Renal Ybn205 B/C Ratio 16.0 Ratio 09/17/2017 Renal Wnp050 CALCIUM 10.4 mg/dL 09/17/2017 Renal Hka080 PHOS 3.9 mg/dL 09/17/2017 Renal Ord433 ALBUMIN 4.3 g/dL 09/17/2017 Comp Metabolic Lvg098 NA 138 mEq/L 02/04/2017 Comp Metabolic Szn906 K 4.5 mEq/L 02/04/2017 Comp Metabolic Cxe726 CL 98 mEq/L 02/04/2017 Comp Metabolic Oxq561 CO2 30.0 mEq/L 02/04/2017 Comp Metabolic Fvq198 ANION GAP 15 02/04/2017 Comp Metabolic Pbz479 GLUCOSE 99 mg/dL 02/04/2017 Comp Metabolic Jxb639 Creat 0.6 mg/dL 02/04/2017 Comp Metabolic Dbk538 eGFR 183 ml/min/1.73m2 02/04/2017 Comp Metabolic Hoa185 BUN 11 mg/dL 02/04/2017 Comp Metabolic Mid733 B/C Ratio 19.6 Ratio 02/04/2017 Comp Metabolic Djs206 CALCIUM 9.5 mg/dL 02/04/2017 Comp Metabolic Max558 ALK PHOS 59 U/L 02/04/2017 Comp Metabolic Mlw274 AST(SGOT) 14 U/L 02/04/2017 Comp Metabolic Unk324 ALT(SGPT) 15 U/L 02/04/2017 Comp Metabolic Ipr928 BILI T 0.3 mg/dL 02/04/2017 Comp Metabolic Gdn027 ALBUMIN 4.0 g/dL 02/04/2017 Comp Metabolic Vrh612 TPRO 7.0 g/dL 02/04/2017 Comp Metabolic Osc177 GLOB 3.0 g/dL 02/04/2017 Comp Metabolic Fou166 A/G Ratio 1.4 Ratio 02/04/2017 Comp Metabolic Jsi604 Osmo 275 mOsmo 02/04/2017 Review of Systems [...] retractions 05/31/2018 None Full Exam - General 1995 Constitutional general appearance Overall: well developed 05/23/2018 None Full Exam - General 1994 Constitutional general appearance Overall: in no acute distress 05/23/2018 None Full Exam - General 1995 Constitutional general appearance Overall: well nourished 05/23/2018 None Full Exam - General 1995 Eyes conjunctiva /eyelids Overall: conjunctiva clear 05/23/2018 [...] data Encounters Encounter Performer Location Codes Date 81258 EST. PATIENT, LEVEL III Diagnosis: Impacted cerumen, bilateral[ICD10: H61.23] Diagnosis: Other otitis externa, right ear[ICD10: H60.8X1] Carrie Nuñez MD, [facility] CPT-4: 99744 05/31/2018 02358 EST. PATIENT, LEVEL III Diagnosis: Essential (primary) hypertension[ICD10: I10] Diagnosis: Major depressive disorder, single episode, moderate[ICD10: F32.1] Diagnosis: Encounter for follow-up examination after completed treatment for conditions other than malignant neoplasm[ICD10: Z09] Diagnosis: Weakness[ICD10: R53.1] Carrie Nuñez MD, [facility] CPT-4: 60583 05/23/2018 88031) 56111 EST. PATIENT, LEVEL IV Diagnosis: Essential (primary) hypertension[ICD10: I10] Diagnosis: Major depressive disorder, single episode, moderate[ICD10: F32.1] Diagnosis: Muscle spasm of back[ICD10: M62.830] Diagnosis: Other headache syndrome[ICD10: G44.89] Anila [facility]ñez MD, [facility] CPT-4: 38242 12/07/2017 34000) 60776 EST. PATIENT, LEVEL IV Diagnosis: Essential (primary) hypertension[ICD10: I10] Diagnosis: Major depressive disorder, single episode, moderate[ICD10: F32.1] Diagnosis: Pressure ulcer of contiguous site of back, buttock and hip, stage 3[ ICD10: L89.43] [facility] CPT-4: 53747 11/04/2017 30874) 37831 EST. 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 PATIENT, LEVEL IV Diagnosis: Umbilical hernia without obstruction or gangrene[ICD10: K42.9] Carrie Nuñez MD, [facility] CPT-4: 01705 03/23/2017 99892 EST. PATIENT, LEVEL IV Diagnosis: Other insomnia[ICD10: G47.09] Diagnosis: Essential (primary) hypertension[ICD10: I10] Diagnosis: Pain in thoracic spine[ICD10: M54.6] Diagnosis: Cervicalgia[ICD10: M54.2] Carrie Nuñez MD, [facility] CPT-4: 48750 03/04/2017 43015 EST. PATIENT, LEVEL III Diagnosis: Cervicalgia[ICD10: M54.2] Diagnosis: Pain in thoracic spine[ICD10: M54.6] Diagnosis: Muscle spasm of back[ICD10: M62.830] Carrie Nuñez MD, [facility] CPT-4: 97601 02/10/2017 80789 EST. PATIENT, LEVEL IV Diagnosis: Essential (primary) hypertension[ICD10: I10] Diagnosis: Lumbar spina bifida without hydrocephalus[ICD10: Q05.7] Carrie Nuñez MD, [facility] CPT-4: 69142 12/16/2016 00775 EST. PATIENT, LEVEL IV Diagnosis: Essential (primary) hypertension[ICD10: I10] Diagnosis: Major depressive disorder, single episode, mild[ICD10: F32.0] Carrie Nuñez MD , [facility] CPT-4: 18710 09/30/2016 ([id number]) 45298 EST. PATIENT, LEVEL III Diagnosis: Bicipital tendinitis, left shoulder[ICD10: M75.22] Diagnosis: Pain in right wrist[ICD10: M25.531] Diagnosis: Pain in left wrist[ICD10: M25.532] Angi Nuñez MD, [facility] CPT-4: 63503 07/23/2016 97003 EST. PATIENT, LEVEL III Diagnosis: Pain in left shoulder[ICD10: M25.512] Diagnosis: Pain in left wrist[ICD10: M25.532] Carrie Nuñez MD, [facility] CPT-4: 08950 06/17/2016 77987 EST. 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 05/31/2018 Appointment: Carrie Raymond WPtel: [address] [place], [place] [address] (15 min) Moderate 05/31/2018 Patient Education: Patient [...] and transfers 05/23/2018 App[facility]ment: Carrie Raymond [facility]Ptel[facility] [place] (30 min) Complex 05/23/2018 Patient Education: Patient [...] symptoms. 12/07/2017 Appointment: Anila Nuñez WPtel: [facility]5 [facility] [place] (15 min) Moderate 12/07/2017 Patient Education: Patient Medication Summary Completed 12/07/2017 Referral: [facility] Referral Initiated 11/09/2017 Care Plan: Referral Order SNOMED-CT : [id number] Pending 11/05/2017 Visit Plan: Hypertension - well [...] Department - we will therefore refer to [place] [facility] Referral to Dr. Murdock for removal of Peg tube. 11/04/2017 Appointment: Anila Nuñez WPtel: [facility]8 [facility] [place] (15 min) Moderate 11/04/2017 Patient Education: Patient Medication Summary Completed 11/04/2017 Appointment: Anila Nuñez WPtel: [facility]7 [facility] (15 min) Moderate 10/28/2017 Visit Plan: Hypertension [...] [place]. 10/14/2017 Appointment: Anila Nuñez WPtel: [facility]5 [facility] (30 min) Complex 10/14/2017 Patient Education: Patient Medication Summary Completed 10/14/2017 Appointment: Anila Nuñez WPtel: [address] [place], [place] [address] (30 min) Complex 09/21/2017 Referral: Jorje Harden HPtel:[phone] [facility] Referral Completed 03/29/2017 Care Plan: Referral Order SNOMED-CT : [id number] Pending 03/24/2017 Visit Plan: Umbilical hernia - reducible, mildly tender to palpation - no skin or color changes - warm and dry to the touch - will refer to surgeon for evaluation - pt is to notify clinic or go to the ER for any acute changes or concerns. 03/23/2017 Appointment: Carrie Raymond WPtel: [facility]5 [facility] (30 min) Complex 03/23/2017 Patient [...] concerns. 03/04/2017 Appointment: Carrie Raymond WPtel[facility] (30 min) Complex 03/04/2017 Patient Education: [...] patient. 09/30/2016 Appointment: Carrie Raymond WPtel: [address] [facility] (15 min) Moderate 09/30/2016 Patient Education: Patient [...] plan. 07/23/2016 Appointment: Angi Rodriguez WPtel: [phone] [phone] [place] (15 min) Moderate 07/23/2016 Patient Education: [...] pain. 05/06/2016 Appointment: Carrie Raymond WPtel: [address] [facility] [place] (15 min) Moderate 05/06/2016 Patient Education: [...] of spina bifida with hydrocephalus-sees neurologist in [place]-due for appt Ruafgtxqeomu-khszkub-etmmtzqw miralax 04/07/2016 Appointment: [facility]el[facility] [address] [facility] New Patient 04/07/2016 Patient Education: Patient Medication Summary Completed 04/07/2016 Referral: [facility] Referral Appointment Requested Referral: Jorje Harden HPtel:[phone] [facility] Ref[facility] App[facility]ment Confirmed Instructions Comment PT TO [...] will refer to Dr. Hargrove. OT AT [facility] TO EVALUATE AND TREAT LYMPHEDEMA [...] of spina bifida with hydrocephalus-sees neurologist in [place]-due for appt Ubsxxgweqrod-jmdylfx-mmymldyc miralax . Cerumen Impaction - The impacted [...] is too complicated to have surgery at [facility] - we will therefore refer to [place] [facility] Referral to Dr. Murdock for removal [...]
--- OUTSIDE RECORDS SUMMARY | 2018-09-06 23:17 | XMS REPORT | Continuity of Care Document ---
Author Organization Unknown Address Unknown Allergies There is no data. Medications There is no data. Problems There is no data. Procedures There is no data. Results There is no data. Encounters ACCT No. Visit Date/Time Discharge Status Pt. Type Provider Facility Loc./Unit Complaint [id number] 08/18/2018 14:40:00 08/18/2018 23:59:59 CLS Outpatient JAN [facility] [id number] 03/25/2016 14:59:33 03/25/2016 23:59:59 CLS Outpatient Beverley Salazar [id number] 03/13/2016 19:25:09 03/13/2016 23:59:59 CLS Outpatient Beverley Salazar [id number] 03/03/2016 11:49:22 03/03/2016 23:59:59 CLS Outpatient Beverley Salazar [id number] 02/07/2016 10:19:38 02/07/2016 23:59:59 CLS Outpatient Beverley Salazar [id number] 01/23/2016 11:38:31 01/23/2016 23:59:59 CLS Outpatient Beverley Salazar [id number] 12/21/2015 20:20:27 12/21/2015 23:59:59 CLS Outpatient Beverley Salazar [id number] 11/30/2015 16:00:42 11/30/2015 23:59:59 CLS Outpatient Regina Blas [id number] 07/25/2015 15:26:25 07/25/2015 23:59:59 CLS Outpatient Beverley Salazar [id number] 07/01/2015 14:47:56 07/01/2015 23:59:59 CLS Outpatient Beverley Salazar [id number] 05/03/2015 15:41:52 05/03/2015 23:59:59 CLS Outpatient Regina Blas [id number] 04/12/2015 14:15:25 04/12/2015 23:59:59 CLS Outpatient Beverley Salazar [id number] 04/09/2015 14:19:19 04/09/2015 23:59:59 CLS Outpatient Km Blasa [id number] 04/04/2015 11:46:55 04/04/2015 23:59:59 CLS Outpatient Beverley Salazar [id number] 03/20/2015 14:38:53 03/20/2015 23:59:59 CLS Outpatient Beverley Salazar [id number] 02/20/2015 11:47:26 02/20/2015 23:59:59 CLS Outpatient Beverley Salazar [id number] 12/24/2014 22:10:53 12/24/2014 23:59:59 CLS Outpatient Beverley Salazar
[2018-09-06] MEDS ORDERED: D5 1/2 NS W/KCL 20 MEQ/L 1,000 ML IV ONE (23:20)
[2018-09-06] MEDS: LACTATED RINGERS 1,000 ML IV SCH (23:44)
[2018-09-06] MEDS: D5 1/2 NS W/KCL 20 MEQ/L 1,000 ML IV SCH (23:44)
[2018-09-06] MEDS ORDERED: ONDANSETRON 4 MG/2 ML (SDV) Z0FRAN IV PRN (23:45)
[2018-09-06] MEDS ORDERED: PROMETHAZINE INJ 25 MG/ML (PHENERGAN) AMP IV PRN (23:45)
[2018-09-06] MEDS: cefTRIAXone 1,000 MG/SWFI 10 ML IV PUSH IV SCH ×2 (23:52)
[2018-09-07] VITALS (10 sets, daily range): BP systolic 122–141; BP diastolic 71–89
[2018-09-07] MEDS: fentaNYL INJECTION 100 MCG/2 ML AMP IVP PRN ×3 (01:42→05:01)
[2018-09-07] MEDS ORDERED: morphine INJ 4 MG/ML 1 ML (VIAL/SYRINGE) ONE (06:04)
[2018-09-07] MEDS: morphine INJ 4 MG/ML 1 ML (VIAL/SYRINGE) IVP PRN ×5 (06:07→20:36)
[2018-09-07] MEDS: LACTATED RINGERS 1,000 ML IV SCH ×3 (06:10→18:21)
[2018-09-07] MEDS: D5 1/2 NS W/KCL 20 MEQ/L 1,000 ML IV SCH ×3 (06:10→18:23)
--- NOTE | 2018-09-07 06:10 | NUR ---
PT. COMPLAINING OF PAIN, UNCONTROLLED BY FENTANYL DR. STANLEY NOTIFIED, NEW ORDERS RECEIVED: MORPHINE 2MG IV Q2HRS PRN PAIN WILL CONTINUE TO MONITOR.
--- NOTE | 2018-09-07 06:13 | ED GI ---
General Chief Complaint: Abdominal/GI Problems Stated Complaint: PARTIAL SMALL BOWEL OBSTRUCTION Nursing Triage Note: PT ARRIVED PER EMS PT CO OF ABD PAIN N/V AND DIARRHEA IN COLOSTOMY BAG TODAY, CO OF DIFFUSE ABD PAIN PT HAS COLOSTOMY AND SUPRA PUBIC DAVID CATH. PT HAS BEEN ON CL LIQUIDS FOR NAUSEA AND VOMITING. Sepsis Screen: No Definite Risk Source of Information: Patient (PT IS LIMITED HISTORIAN, ESPECIALLY REGARDING PAST MEDICAL HISTORY), [facility] Records History of Present Illness Date Seen by Provider: Sep 06, 2018 Time Seen by Provider: 17:55 Initial Comments PT ARRIVES VIA EMS FROM [facility] PT HAS HAD NAUSEA AND VOMITING SINCE LAST PM PT STATES HE HAS VOMITED X 8-10 TODAY--REPORTEDLY UNDIGESTED FOOD NO FOOD INTAKE SINCE YESTERDAY, BUT HAS BEEN SIPPING ON CLEAR LIQUIDS, BUT HAS NOT BEEN ABLE TO KEEP THOSE DOWN EITHER NO KNOWN FEVER PT INITIALLY DID NOT C/O ABDOMINAL PAIN TO ME--ONLY C/O ABDOMINAL PAIN MUCH LATER AFTER HIS [id number] ARRIVED. PT HAS COLOSTOMY IN PLACE FROM PRIOR INTESTINAL PERFORATION--PT STATES HE WAS HOSPITALIZED AT [place] FOR 6 MONTHS, DUE TO MULTITUDE OF COMPLICATIONS, INCLUDING RENAL FAILURE--STATES HE ALMOST PT HAS HAD MULTIPLE ABDOMINAL SURGERIES AND CURRENTLY HAS A HERNIA PT ALSO HAS A SUPRAPUBIC CATHETER IN PLACE PT HAS SPINA BIFIDA AND IS NON-AMBULATORY PT HAS USPS LETTER CARRIER SHUNT IN PLACE FOR HYDROCEPHALUS PT IS NOT SURE ABOUT URINE OUTPUT OR STOOL OUTPUT THROUGH HIS COLOSTOMY PT STATES HE HAS HAD 42 SURGERIES TOTAL, FOR VARIOUS PROBLEMS PCP: DR. SIERRA Allergies and Home Medications Allergies Coded Allergies: latex (Verified Allergy, Unknown, 09/06/18) Home Medications Acetaminophen 500 Mg Tablet, 500 MG PO HS, (Reported) Allopurinol 100 Mg Tablet, 100 MG PO DAILY, (Reported) Aspirin 325 Mg Tablet, 325 MG PO DAILY, (Reported) Cetirizine HCl 10 Mg Tablet, 10 MG PO DAILY PRN for ALLERGIES, (Reported) Diclofenac Sodium 100 Gm Gel..gram., 4 GM TP HS, (Reported) APPLY TO LOWER BACK AND BOTH SHOULDERS Diclofenac Sodium 100 Gm Gel..gram., 4 GM TP Q4H PRN for BACK/SHOULDER PAIN, ( Reported) Duloxetine HCl 30 Mg Capsule.dr, 90 MG PO DAILY, (Reported) TAKES 3 (30MG) CAPSULES Fluticasone Propionate 16 Gm [place].susp, 1 SPRAY NS HS, (Reported) Hydrocodone/Acetaminophen 1 Each Tablet, 1-2 TAB PO Q6H PRN for PAIN-MODERATE, ( Reported) L. Acidophilus/L.bulgaricus 1 Each Tablet, 1 TAB PO BID, (Reported) Levetiracetam 500 Mg Tablet, 1,500 MG PO BID, (Reported) TAKES 3 (500MG) TABLETS Lidocaine HCl 76.5 Gm Cream..g., TP TID, (Reported) APPLY TO BACK FROM SHOULDERS TO TOP OF BUTTOCKS Metoclopramide HCl 10 Mg Tablet, 10 MG PO QID, (Reported) Metoprolol Tartrate 25 Mg Tablet, 12.5 MG PO BID, (Reported) TAKES 1/2 (25MG) TABLET NOTIFY PCP IF <80/50 OR >180/110 OR PULSE <50 OR > 110 Multivitamin 1 Each Tablet, 1 TAB PO DAILY, (Reported) Naproxen 500 Mg Tablet, 500 MG PO BID Prescribed by: ANDREEA PRATT on 06/27/18 1642 Nystatin 15 Gm Cream..g., TP BID, (Reported) APPLY TO BUTTOCKS/GROIN AREA Olopatadine HCl 2.5 Ml Drops, 1 DROP OU DAILY PRN for DRY EYES, (Reported) Ondansetron HCl 4 Mg Tab, 4 MG PO Q8H PRN for NAUSEA/VOMITING-1ST LINE, ( Reported) Pantoprazole Sodium 40 Mg Tablet.dr, 40 MG PO DAILY, (Reported) Phenyleph/Mineral Oil/Petrolat 28 Gm Oint.appl, RC Q6H PRN for HEMORRHOIDS, ( Reported) Prochlorperazine 25 Mg Supp.rect, 25 MG RC Q12H PRN for NAUSEA/VOMITING-4TH LINE , (Reported) Tacrolimus 30 Gm Oint...g., TP BID, (Reported) APPLY TO MIDLINE ABDOMINAL WOUND Zinc Oxide 57 Gm Oint...g., TP BID, (Reported) APPLY TO BUTTOCKS AND JAJA WOUND Patient Home Medication List Home Medication List Reviewed: Yes Review of Systems Review of Systems Constitutional: no symptoms reported Respiratory: No Symptoms Reported Cardiovascular: No Symptoms Reported Gastrointestinal: See HPI, Abdominal Pain, Nausea, Vomiting Genitourinary: See HPI Musculoskeletal: no symptoms reported Skin: no symptoms reported Psychiatric/Neurological: See HPI, Pre-Existing Deficit Endocrine: No Symptoms Reported Hematologic/Lymphatic: No Symptoms Reported Past [id number]-Kdassk Hx Patient Social History Alcohol Use: Denies Use Recreational Drug Use: No Smoking Status: Never a Smoker Recent Foreign Travel: No Contact w/Someone Who Travel: No Recent Infectious Disease Expo: No Recent Hopitalizations: No Immunizations Up To Date Tetanus Booster (TDap): Unknown PED Vaccines UTD: Yes Date of Influenza Vaccine: Feb 14, 2018 Seasonal Allergies Seasonal Allergies: No Past Medical History Surgeries: Yes (PT STATES HE HAS HAD 42 SURGERIES IN ALL; USPS LETTER CARRIER SHUNTS FOR HYDROCEPHALUS; MULTIPLE ABDOMINAL SURGERIES; COLOSTOMY IN 2018 FOR INTESTINAL PERFORATION; SUPRAPUBIC CATHETER FOR NEUROGENIC BLADDER. PT DOES NOT KNOW ALL OF HIS OTHER SURGERIES) Abdominal, Bladder Surgery, Brain Shunt, Neurological Respiratory: Yes Asthma Cardiac: Yes Hypertension Neurological: Yes (SPINA BIFIDA--NON-AMBULATORY; HYDRCEPHALUS WITH USPS LETTER CARRIER SHUNT) Genitourinary: Yes (SUPRAPUBIC CATHETER; RENAL FAILURE WITH BOWEL PERFORATION) Renal Failure, Neurogenic Bladder Gastrointestinal: Yes (COLOSTOMY FOR BOWEL PERFORATION; MULTIPLE ABDOMINAL SURGERIES) Abdominal Hernia Musculoskeletal: Yes (SPINA BIFIDA; CHRONIC RIGHT HIP DISLOCATION NOTED ON CT; ) Endocrine: Yes (MORBID OBESITY) Diabetes, Non-Insulin dep HEENT: No Cancer: No Psychosocial: Yes Depression Integumentary: No Blood Disorders: No Family Medical History Patient reports no known family medical history. Other Conditions/Hx Physical Exam Vital Signs Vital Signs - First Documented 09/06/18 17:10 Temp 99.1 Pulse 144 Resp 18 B/P (MAP) 132/104 (113) Capillary Refill : Less Than 3 Seconds Height/Weight/BMI Height: 5'4.00" Weight: 280lbs. 0.0oz. 127.444872pd; 48.1 BMI Method:Stated General Appearance: no apparent distress, obese (MOBRIDLY OBESE) Respiratory: normal breath sounds, no respiratory distress, no accessory muscle use Cardiovascular: no murmur, tachycardia Gastrointestinal: abnormal bowel sounds (DECREASED), tenderness (DIFFUSE LOWER ABDOMEN AND LEFT MID AND LOWER ABDOMEN TENDERNESS. ), other (COLOSTOMY IN RLQ WITH SOME UNDIGESTED FOOD; UNABLE TO DETERMINE IF HERNIA, MASS OR ORGANOMEGALY IS PRESENT DUE TO BODY HABITUS; SUPRAPUBIC CATHETER IN PLACE) Extremities: other (LEGS ATROPHIC AND SHORT; 1+ EDEMA BILATERALLY) Neurologic/Psychiatric: alert, oriented x 3, motor weakness (BILATERAL LOWER LEG WEAKNESS), other (FLAT AFFECT; ) Skin: normal color, warm/dry Focused Exam Lactate Level 09/06/18 18:14: Lactic Acid Level 1.53 Lactic Acid Level Laboratory Tests Test 09/06/18 18:14 Lactic Acid Level 1.53 MMOL/L (0.50-2.00) Progress/Results/Core Measures Results/Orders Lab Results Laboratory Tests Test 09/06/18 17:50 09/06/18 18:14 Range/Units Urine Color BREANA H Urine Clarity VERY CLOUDY H Urine pH 7 5-9 Urine Specific [place] 1.015 L 1.016-1.022 Urine Protein 4+ NEGATIVE Urine Glucose (UA) NEGATIVE NEGATIVE Urine Ketones NEGATIVE NEGATIVE Urine Nitrite NEGATIVE NEGATIVE Urine Bilirubin NEGATIVE NEGATIVE Urine Urobilinogen NORMAL NORMAL MG/DL Urine Leukocyte Esterase 3+ H NEGATIVE Urine RBC (Auto) 4+ H NEGATIVE Urine RBC NONE /HPF Urine WBC TNTC H /HPF Urine Squamous Epithelial Cells 0-2 /HPF Urine Crystals NONE /LPF Urine Bacteria LARGE H /HPF Urine Casts PRESENT /LPF Urine Granular Casts 10-25 H /LPF Urine Mucus NEGATIVE /LPF Urine Other 2-5 TRANS EPIS /HPF Urine Culture Indicated YES White Blood Count 13.4 H 4.3-11.0 10^3/uL Red Blood Count 5.82 4.35-5.85 10^6/uL Hemoglobin 15.7 13.3-17.7 G/DL Hematocrit 48 40-54 % Mean Corpuscular Volume 82 80-99 FL Mean Corpuscular Hemoglobin 27 25-34 PG Mean Corpuscular Hemoglobin Concent 33 32-36 G/DL Red Cell Distribution Width 14.7 H 10.0-14.5 % Platelet Count 419 H 130-400 10^3/uL Mean Platelet Volume 9.3 7.4-10.4 FL Neutrophils (%) (Auto) 81 H 42-75 % Lymphocytes (%) (Auto) 10 L 12-44 % Monocytes (%) (Auto) 6 0-12 % Eosinophils (%) (Auto) 3 0-10 % Basophils (%) (Auto) 0 0-10 % Neutrophils # (Auto) 10.8 H 1.8-7.8 X 10^3 Lymphocytes # (Auto) 1.4 1.0-4.0 X 10^3 Monocytes # (Auto) 0.9 0.0-1.0 X 10^3 Eosinophils # (Auto) 0.3 0.0-0.3 10^3/uL Basophils # (Auto) 0.0 0.0-0.1 10^3/uL Prothrombin Time 12.6 12.2-14.7 SEC INR Comment 0.9 0.8-1.4 Activated Partial Thromboplast Time 21 L 24-35 SEC Sodium Level 141 135-145 MMOL/L Potassium Level 4.3 3.6-5.0 MMOL/L Chloride Level 105 98-107 MMOL/L Carbon Dioxide Level 20 L 21-32 MMOL/L Anion Gap 16 H 5-14 MMOL/L Blood Urea Nitrogen 14 7-18 MG/DL Creatinine 1.08 0.60-1.30 MG/DL Estimat Glomerular Filtration Rate > 60 BUN/Creatinine Ratio 13 Glucose Level 124 H 70-105 MG/DL Lactic Acid Level 1.53 0.50-2.00 MMOL/L Calcium Level 10.9 H 8.5-10.1 MG/DL Corrected Calcium 8.5-10.1 MG/DL Magnesium Level 1.7 L 1.8-2.4 MG/DL Total Bilirubin 0.3 0.1-1.0 MG/DL Aspartate Amino Transf (AST/SGOT) 36 H 5-34 U/L Alanine Aminotransferase (ALT/SGPT) 80 H 0-55 U/L Alkaline Phosphatase 120 40-136 U/L Troponin I < 0.028 <0.028 NG/ML Total Protein 9.3 H 6.4-8.2 GM/DL Albumin 4.7 H 3.2-4.5 GM/DL Amylase Level 67 25-125 U/L Lipase 30 8-78 U/L My Orders Orders - KARUNA ALCOCER DO Ed Iv/Invasive Line Start (09/06/18 18:00) Ekg Tracing (09/06/18 18:00) Monitor-Rhythm Ecg Trace Only (09/06/18 18:00) Amylase (09/06/18 18:00) Cbc With Automated Diff (09/06/18 18:00) Comprehensive Metabolic Panel (09/06/18 18:00) Lactic Acid Analyzer (09/06/18 18:00) Lipase (09/06/18 18:00) Magnesium (09/06/18 18:00) Protime With Inr (09/06/18 18:00) Partial Thromboplastin Time (09/06/18 18:00) Troponin I (09/06/18 18:00) Ua Culture If Indicated (09/06/18 18:00) Blood Culture (09/06/18 18:00) Ed Iv/Invasive Line Start (09/06/18 18:00) Lactated Ringers (Lr 1000 Ml Iv Solution (09/06/18 18:00) Urine Culture (09/06/18 17:50) Chest 1 View, Ap/Pa Only (09/06/18 18:52) Ct Abdomen/Pelvis Wo (09/06/18 18:55) Ondansetron Injection (Zofran Injectio (09/06/18 19:00) Pantoprazole Injection (Protonix Injecti (09/06/18 18:55) Ed Iv/Invasive Line Start (09/06/18 18:55) Ns Iv 1000 Ml (Sodium Chloride 0.9%) (09/06/18 18:55) Medications Given in ED Current Medications Medications Dose Ordered Sig/Sridevi Route Start Time Stop Time Status Last Admin Dose Admin Sodium Chloride 1,000 ml @ 0 mls/hr Q0M ONCE IV 09/06/18 18:55 09/06/18 18:56 DC 09/06/18 21:41 1,000 MLS/HR Vital Signs/I&O 09/06/18 09/06/18 17:10 19:52 Temp 99.1 99.1 Pulse 144 144 Resp 18 18 B/P (MAP) 132/104 (113) 132/104 Blood Pressure Mean: 96 Progress Progress Note : Progress Note NO DETERIORATION IN PT'S CONDITION DURING ER STAY BP UP WITH FLUIDS HEART RATE REMAINED IN 130'S NO VOMITING, AND NAUSEA AND PAIN EASED WITH MEDICATIONS SISTER IN LAW ARRIVES LATER, SHE STATES SHE WORKS IN DR. SIERRA'S OFFICE. PT NOW REPORTS TO HER THAT HE IS HAVING ABDOMINAL PAIN (PT HAD NOT MENTIONED THIS TO ME PRIOR TO HER ARRIVAL, ONLY C/O NAUSEA TO ME)--PAIN MEDICATION ORDERED. Diagnostic Imaging Comments CXR--LIMITED EXAM. POSSIBLE LLL EFFUSION--PER RADIOLOGIST REPORT CT ABDOMEN / PELVIS--PARTIAL SBO IN VENTRAL HERNIA. OTHER NON-ACUTE FINDINGS-- PER RADIOLOGIST REPORT AT 2009 Reviewed: Reviewed by Me Departure Communication (Admissions) 2014--SPOKE WITH DR. STANLEY, SURGEON AUTOMOTIVE DESIGN DRAFTER. HE ADVISES NG TUBE, AND ABDOMEN XRAYS WITH SMALL BOWEL FOLLOW THROUGH WITH GASTROGRAFFIN TOMORROW. HE WILL ADMIT OR SEE IN CONSULT 2016--SPOKE WITH DR. SIERRA, SHE ADVISES TO ADMIT TO DR. STANLEY AND SHE WILL CONSULT. Impression Primary Impression: Partial small bowel obstruction Additional Impressions: UTI (urinary tract infection) Ventral hernia Spina bifida Seizure disorder NON-AMBULATORY Disposition: ADMITTED INPATIENT Condition: Improved Admissions Decision to Admit Reason: Admit from ER (General) Decision to Admit/Date: Sep 06, 2018 Time/Decision to Admit Time: 20:15 Departure-Patient Inst. Referrals: MIRIAM SIERRA MD (PCP) Primary Care Physician KARUNA ALCOCER DO Sep 07, 2018 06:12
[2018-09-07 07:15] LABS: BASOPHILS % (AUTO) 0 % (0-10); EOSINOPHILS # (AUTO) 0.1 10^3/uL (0.0-0.3); EOSINOPHILS % (AUTO) 1 % (0-10); HEMATOCRIT 40 % (40-54); HEMOGLOBIN 13.1 G/DL (13.3-17.7); LYMPHOCYTES # (AUTO) 1.6 X 10^3 (1.0-4.0); LYMPHOCYTES % (AUTO) 19 % (12-44); MEAN CORPUSCULAR HEMOGLOBIN 27 PG (25-34); MEAN CORPUSCULAR HGB CONC 33 G/DL (32-36); MEAN CORPUSCULAR VOLUME 83 FL (80-99); MONOCYTES % (AUTO) 11 % (0-12); NEUTROPHILS # (AUTO) 5.9 X 10^3 (1.8-7.8); NEUTROPHILS % (AUTO) 68 % (42-75); PLATELET COUNT 306 10^3/uL (130-400); RED CELL DISTRIBUTION WIDTH 14.5 % (10.0-14.5); WHITE BLOOD COUNT 8.6 10^3/uL (4.3-11.0)
[2018-09-07 07:36] LABS: ALANINE AMINOTRANSFERASE 59 U/L (0-55); ALBUMIN 3.8 GM/DL (3.2-4.5); ALKALINE PHOSPHATASE 91 U/L (40-136); BILIRUBIN,TOTAL 0.3 MG/DL (0.1-1.0); BUN/CREATININE RATIO 14; CALCIUM 9.6 MG/DL (8.5-10.1); CARBON DIOXIDE 24 MMOL/L (21-32); CHLORIDE 109 MMOL/L (98-107); GFR ESTIMATED > 60; GLUCOSE 139 MG/DL (70-105); POTASSIUM 4.1 MMOL/L (3.6-5.0); SODIUM 144 MMOL/L (135-145); TOTAL PROTEIN 7.3 GM/DL (6.4-8.2)
[2018-09-07] MEDS: PANTOPRAZOLE 40 MG (PROTONIX) VIAL IV SCH (09:03)
--- NOTE | 2018-09-07 09:12 | Consultation ---
History of Present Illness History of Present Illness Patient Consulted On(mark/time) 09/07/18 09:12 Date Seen by Provider: Sep 09, 2018 Time Seen by Provider: 09:00 Reason for Visit: small bowel obstruction History of Present Illness PT IS A 32 Y/O MALE WHO IS WELL KNOWN TO ME FROM CLINIC. HE PRESENTS TO THE HOSPITAL WITH OVER 24 HOURS OF VOMITING. APPARENTLY IT STARTED LATE ON WEDNESDAY EVENING AND THE NURSING STAFF WAITED TO CALL THE OFFICE UNTIL 3PM ON WEDNESDAY TO INFORM MY OFFICE THAT HE WAS HAVING SUCH EXCESSIVE EMESIS. HIS FAMILY REPORTS THAT HE HAD APPARENTLY BEEN TO A [employer] DINNER ON WEDNESDAY AND HE OVERATE TO AN EXTREME AMOUNT. Allergies and Home Medications Allergies Coded Allergies: latex (Verified Allergy, Unknown, 09/06/18) Home Medications Acetaminophen 500 Mg Tablet, 500 MG PO HS, (Reported) Acetaminophen 500 Mg Tablet, 1,000 MG PO Q8H PRN for PAIN-MILD, (Reported) Allopurinol 100 Mg Tablet, 100 MG PO DAILY, (Reported) Aspirin 325 Mg Tablet, 325 MG PO DAILY, (Reported) Betamethasone Valerate 15 Gm Cream..g., TP BID, (Reported) APPLY TO FACE AND SCALP Cetirizine HCl 10 Mg Tablet, 10 MG PO DAILY PRN for ALLERGIES, (Reported) Diclofenac Sodium 100 Gm Gel..gram., 4 GM TP HS, (Reported) APPLY TO LOWER BACK AND BOTH SHOULDERS Diclofenac Sodium 100 Gm Gel..gram., 4 GM TP Q4H PRN for BACK/SHOULDER PAIN, ( Reported) Duloxetine HCl 30 Mg Capsule.dr, 90 MG PO DAILY, (Reported) TAKES 3 (30MG) CAPSULES Fluticasone Propionate 16 Gm [place].susp, 1 SPRAY NS HS, (Reported) Hydrocodone/Acetaminophen 1 Each Tablet, 1-2 TAB PO Q6H PRN for PAIN-MODERATE, ( Reported) Hydrocortisone 28.35 Gm Cream..g., TP BID, (Reported) APPLY TO ABDOMINAL WOUNDS L. Acidophilus/L.bulgaricus 1 Each Tablet, 1 TAB PO BID, (Reported) Levetiracetam 500 Mg Tablet, 1,500 MG PO BID, (Reported) TAKES 3 (500MG) TABLETS Menthol 118 Ml Gel..ml., TP Q4H PRN for MUSCLE PAIN, (Reported) Metoclopramide HCl 10 Mg Tablet, 10 MG PO QID, (Reported) Metoprolol Tartrate 25 Mg Tablet, 12.5 MG PO BID, (Reported) TAKES 1/2 (25MG) TABLET NOTIFY PCP IF <80/50 OR >180/110 OR PULSE <50 OR > 110 Multivitamin 1 Each Tablet, 1 TAB PO DAILY, (Reported) Naproxen 500 Mg Tablet, 500 MG PO Q12H PRN for PAIN-MILD, (Reported) Ondansetron HCl 4 Mg Tab, 4 MG PO Q8H PRN for NAUSEA/VOMITING-1ST LINE, ( Reported) Pantoprazole Sodium 40 Mg Tablet.dr, 40 MG PO DAILY, (Reported) Povidone-Iodine 30 Ml Solution, TOP DAILY, (Reported) Zinc Oxide 57 Gm Oint...g., TP BID, (Reported) APPLY TO BUTTOCKS AND JAJA WOUND Patient Home Medication List Home Medication List Reviewed: Yes Past Kjxenpj-Epcjzz-Zzossz Hx Past Med/Social Hx: Reviewed Nursing Past Med/Soc Hx, Reviewed and Corrections made Patient Social History Alcohol Use: Denies Use Recreational Drug Use: No Smoking Status: Never a Smoker 2nd Hand Smoke Exposure: No Recent Foreign Travel: No Contact w/Someone Who Travel: No Recent Infectious Disease Expo: No Recent Hopitalizations: No Immunizations Up To Date Tetanus Booster (TDap): Unknown PED Vaccines UTD: Yes Date of Influenza Vaccine: Feb 14, 2018 Seasonal Allergies Seasonal Allergies: No Past Medical History Surgeries: Yes (PT STATES HE HAS HAD 42 SURGERIES IN ALL; COMPUTER APPLICATIONS ENGINEER SHUNTS FOR HYDROCEPHALUS; MULTIPLE ABDOMINAL SURGERIES; COLOSTOMY IN 2018 FOR INTESTINAL PERFORATION; SUPRAPUBIC CATHETER FOR NEUROGENIC BLADDER. PT DOES NOT KNOW ALL OF HIS OTHER SURGERIES) Abdominal, Bladder Surgery, Brain Shunt, Neurological Respiratory: Yes Asthma Cardiac: Yes Hypertension Neurological: Yes (SPINA BIFIDA--NON-AMBULATORY; HYDRCEPHALUS WITH COMPUTER APPLICATIONS ENGINEER SHUNT) Genitourinary: Yes (SUPRAPUBIC CATHETER; RENAL FAILURE WITH BOWEL PERFORATION) Renal Failure, Neurogenic Bladder Gastrointestinal: Yes (COLOSTOMY FOR BOWEL PERFORATION; MULTIPLE ABDOMINAL SURGERIES) Abdominal Hernia Musculoskeletal: Yes (SPINA BIFIDA; CHRONIC RIGHT HIP DISLOCATION NOTED ON CT; ) Endocrine: Yes (MORBID OBESITY) Diabetes, Non-Insulin dep HEENT: No Cancer: No Psychosocial: Yes Depression Integumentary: No Blood Disorders: No Family Medical History Reviewed and Corrections made Patient reports no known family medical history. Other Conditions/Hx Review of Systems-General Constitutional: No chills, No fever; malaise, weakness EENTM: No hoarseness, No throat pain Respiratory: No cough, No dyspnea on exertion, No short of breath Cardiovascular: No chest pain, No edema, No palpitations Gastrointestinal: RUQ, LUQ, abdominal pain (RUQ), other (OSTOMY RIGHT LOWER ABDOMEN) Genitourinary: other (CHRONIC INDWELLING DAVID) Musculoskeletal: muscle weakness (CHRONIC) Skin: no symptoms reported Psychiatric/Neurological: Weakness All Other Systems Reviewed Negative Unless Noted: Yes Physical Exam-General Problems Physical Exam Vital Signs Vital Signs - First Documented 09/06/18 09/06/18 17:10 21:45 Temp 99.1 Pulse 144 Resp 18 B/P (MAP) 132/104 (113) Pulse Ox 97 O2 Delivery Room Air Capillary Refill : Less Than 3 Seconds General Appearance: WD/WN, no apparent distress Eyes: Bilateral Eye Normal Inspection, Bilateral Eye PERRL, Bilateral Eye EOMI HEENT: PERRL/EOMI, pharynx normal Neck: non-tender, supple, normal inspection Respiratory: chest non-tender, lungs clear, normal breath sounds, no respiratory distress Cardiovascular: regular rate, rhythm Gastrointestinal: distended (DECREASED BOWEL SOUNDS) Rectal: deferred Back: normal inspection, no CVA tenderness, no vertebral tenderness Extremities: non-tender, normal capillary refill Neurologic/Psychiatric: manager union II-XII nml as tested, alert, normal mood/affect, oriented x 3 Skin: normal color, warm/dry Lymphatic: no adenopathy Assessment/Plan Assessment/Plan Admission Diagnosis/Plan SMALL BOWEL OBSTRUCTION CHRONIC VENTRAL HERNIA MILD LEUKOCYTOSIS CHRONIC INDWELLING DAVID CATHETER URINARY TRACT INFECTION SEIZURE DISORDER HYPERTENSION GOUT ESOPHAGEAL REFLUX SMALL BOWEL OBSTRUCTION - NG TUBE IN PLACE - CONTINUE WITH DECOMPRESSION VIA NG TUBE - DEFER TO DR. STANLEY CHRONIC VENTRAL HERNIA - SUPPORTIVE CARE ONLY AT THIS TIME CHRONIC INDWELLING DAVID CATHETER - URINALYSIS PENDING - PT BEING TREATED FOR URINARY TRACT INFECTION - WAITING ON CULTURE AND SENSITIVITY REPORT MILD LEUKOCYTOSIS - IV ANTIBIOTICS FOR UTI SEIZURE DISORDER - RESTART KEPPRA HYPERTENSION - RESTART TOPROL GOUT - WILL EVENTUALLY RESTART ALLOPURINOL ESOPHAGEAL REFLUX - PT ON PROTONIX AT FACILITY - RESTART LATER IN THE WEEK Admission Status: Inpatient Order (span 2 midnights) Reason for Inpatient Admission: INPATIENT ADMISSION FOR BOWEL OBSTRUCTION - WILL REQUIRE AT LEAST 48 HOURS ADMISSION. Clinical Quality Measures DVT/VTE Risk/Contraindication: Risk Factor Score Per Nursin RFS Level Per Nursing on Admit: 4+=Very High MIRIAM SIERRA MD Sep 07, 2018 09:12
--- NOTE | 2018-09-07 11:28 | Consultation ---
History of Present Illness History of Present Illness Patient Consulted On(mark/time) 09/07/18 11:23 Date Seen by Provider: Sep 07, 2018 Time Seen by Provider: 08:48 History of Present Illness consult requested for partial small bowel obstruction from Dr. Nuñez. Patient is a 32 year old male with spina bifida, hydrocephalus with DYNAMIC ETCHING PROCESSOR shunt. Patient had recent perforation and extended complicated medical course. He presented to ED by ems with 2 days of not feeling well. Decreased oral intake and having nausea and emesis. Moderate pain around the umbilical area. Has some colostomy output. Ct scan was performed that I reviewed that show likely partial sbo and large ventral hernia. Patient had NG tube place yesterday. No other complaints at this time. Allergies and Home Medications Allergies Coded Allergies: latex (Verified Allergy, Unknown, 09/06/18) Home Medications Acetaminophen 500 Mg Tablet, 500 MG PO HS, (Reported) Allopurinol 100 Mg Tablet, 100 MG PO DAILY, (Reported) Aspirin 325 Mg Tablet, 325 MG PO DAILY, (Reported) Cetirizine HCl 10 Mg Tablet, 10 MG PO DAILY PRN for ALLERGIES, (Reported) Diclofenac Sodium 100 Gm Gel..gram., 4 GM TP HS, (Reported) APPLY TO LOWER BACK AND BOTH SHOULDERS Diclofenac Sodium 100 Gm Gel..gram., 4 GM TP Q4H PRN for BACK/SHOULDER PAIN, ( Reported) Duloxetine HCl 30 Mg Capsule.dr, 90 MG PO DAILY, (Reported) TAKES 3 (30MG) CAPSULES Fluticasone Propionate 16 Gm Bylas.susp, 1 SPRAY NS HS, (Reported) Hydrocodone/Acetaminophen 1 Each Tablet, 1-2 TAB PO Q6H PRN for PAIN-MODERATE, ( Reported) L. Acidophilus/L.bulgaricus 1 Each Tablet, 1 TAB PO BID, (Reported) Levetiracetam 500 Mg Tablet, 1,500 MG PO BID, (Reported) TAKES 3 (500MG) TABLETS Lidocaine HCl 76.5 Gm Cream..g., TP TID, (Reported) APPLY TO BACK FROM SHOULDERS TO TOP OF BUTTOCKS Metoclopramide HCl 10 Mg Tablet, 10 MG PO QID, (Reported) Metoprolol Tartrate 25 Mg Tablet, 12.5 MG PO BID, (Reported) TAKES 1/2 (25MG) TABLET NOTIFY PCP IF <80/50 OR >180/110 OR PULSE <50 OR > 110 Multivitamin 1 Each Tablet, 1 TAB PO DAILY, (Reported) Naproxen 500 Mg Tablet, 500 MG PO BID Prescribed by: ANDREEA PRATT on 06/27/18 1642 Nystatin 15 Gm Cream..g., TP BID, (Reported) APPLY TO BUTTOCKS/GROIN AREA Olopatadine HCl 2.5 Ml Drops, 1 DROP OU DAILY PRN for DRY EYES, (Reported) Ondansetron HCl 4 Mg Tab, 4 MG PO Q8H PRN for NAUSEA/VOMITING-1ST LINE, ( Reported) Pantoprazole Sodium 40 Mg Tablet.dr, 40 MG PO DAILY, (Reported) Phenyleph/Mineral Oil/Petrolat 28 Gm Oint.appl, RC Q6H PRN for HEMORRHOIDS, ( Reported) Prochlorperazine 25 Mg Supp.rect, 25 MG RC Q12H PRN for NAUSEA/VOMITING-4TH LINE , (Reported) Tacrolimus 30 Gm Oint...g., TP BID, (Reported) APPLY TO MIDLINE ABDOMINAL WOUND Zinc Oxide 57 Gm Oint...g., TP BID, (Reported) APPLY TO BUTTOCKS AND JAJA WOUND Patient Home Medication List Home Medication List Reviewed: Yes Past Nvarmgb-Krpotn-Ulrhkh Hx Patient Social History Alcohol Use: Denies Use Recreational Drug Use: No Smoking Status: Never a Smoker Recent Foreign Travel: No Contact w/Someone Who Travel: No Recent Infectious Disease Expo: No Recent Hopitalizations: No Immunizations Up To Date Tetanus Booster (TDap): Unknown PED Vaccines UTD: Yes Date of Influenza Vaccine: Feb 14, 2018 Seasonal Allergies Seasonal Allergies: No Surgeries History of Surgeries: Yes (PT STATES HE HAS HAD 42 SURGERIES IN ALL; DYNAMIC ETCHING PROCESSOR SHUNTS FOR HYDROCEPHALUS; MULTIPLE ABDOMINAL SURGERIES; COLOSTOMY IN 2018 FOR INTESTINAL PERFORATION; SUPRAPUBIC CATHETER FOR NEUROGENIC BLADDER. PT DOES NOT KNOW ALL OF HIS OTHER SURGERIES) Surgeries: Abdominal, Bladder Surgery, Brain Shunt, Neurological Respiratory History of Respiratory Disorde: Yes Respiratory Disorders: Asthma Cardiovascular History of Cardiac Disorders: Yes Cardiac Disorders: Hypertension Neurological History of Neurological Disord: Yes (SPINA BIFIDA--NON-AMBULATORY; HYDRCEPHALUS WITH DYNAMIC ETCHING PROCESSOR SHUNT) Genitourinary History of Genitourinary Disor: Yes (SUPRAPUBIC CATHETER; RENAL FAILURE WITH BOWEL PERFORATION) Genitourinary Disorders: Renal Failure, Neurogenic Bladder Gastrointestinal History of Gastrointestinal Di: Yes (COLOSTOMY FOR BOWEL PERFORATION; MULTIPLE ABDOMINAL SURGERIES) Gastrointestinal Disorders: Abdominal Hernia Musculoskeletal History of Musculoskeletal Dis: Yes (SPINA BIFIDA; CHRONIC RIGHT HIP DISLOCATION NOTED ON CT; ) Endocrine History of Endocrine Disorders: Yes (MORBID OBESITY) Endocrine Disorders: Diabetes, Non-Insulin dep HEENT History of HEENT Disorders: No Cancer History of Cancer: No Psychosocial History of Psychiatric Problem: Yes Behavioral Health Disorders: Depression Integumentary History of Skin or Integumenta: No Blood Transfusions History of Blood Disorders: No Family Medical History Significant Family History: No Pertinent Family Hx, Other Conditions/Hx Family Medial History: Patient reports no known family medical history. Review of Systems-General Constitutional: no symptoms reported EENTM: no symptoms reported Respiratory: no symptoms reported Cardiovascular: no symptoms reported Gastrointestinal: see HPI Genitourinary: no symptoms reported Musculoskeletal: no symptoms reported Skin: no symptoms reported Psychiatric/Neurological: No Symptoms Reported Physical Exam-General Problems Physical Exam Vital Signs Vital Signs - First Documented 09/06/18 09/06/18 17:10 21:45 Temp 99.1 Pulse 144 Resp 18 B/P (MAP) 132/104 (113) Pulse Ox 97 O2 Delivery Room Air Capillary Refill : Less Than 3 Seconds General Appearance: WD/WN, no apparent distress HEENT: PERRL/EOMI, normal ENT inspection Neck: non-tender, full range of motion, supple, normal inspection Respiratory: chest non-tender, no respiratory distress, no accessory muscle use Cardiovascular: regular rate, rhythm Gastrointestinal: tenderness (minimal around ubilicus, suprapubic catheter, colostomy right lower quadrant, large ventral hernia) Rectal: deferred Back: no CVA tenderness Extremities: non-tender, normal inspection Neurologic/Psychiatric: alert, normal mood/affect, oriented x 3 Skin: normal color, warm/dry Lymphatic: no adenopathy Data Review Labs Laboratory Tests 09/06/18 17:50: Urine Color AMBERH, Urine Clarity VERY CLOUDYH, Urine pH 7, Urine Specific [place] 1.015L, Urine Protein 4+, Urine Glucose (UA) NEGATIVE, Urine Ketones NEGATIVE, Urine Nitrite NEGATIVE, Urine Bilirubin NEGATIVE, Urine Urobilinogen NORMAL, Urine Leukocyte Esterase 3+H, Urine RBC (Auto) 4+H, Urine RBC NONE, Urine WBC TNTCH, Urine Squamous Epithelial Cells 0-2, Urine Crystals NONE, Urine Bacteria LARGEH, Urine Casts PRESENT, Urine Granular Casts 10-25H, Urine Mucus NEGATIVE, Urine Other 2-5 TRANS EPIS, Urine Culture Indicated YES 09/06/18 18:14: White Blood Count 13.4H, Red Blood Count 5.82, Hemoglobin 15.7, Hematocrit 48, Mean Corpuscular Volume 82, Mean Corpuscular Hemoglobin 27, Mean Corpuscular Hemoglobin Concent 33, Red Cell Distribution Width 14.7H, Platelet Count 419H, Mean Platelet Volume 9.3, Neutrophils (%) (Auto) 81H, Lymphocytes (%) (Auto) 10L , Monocytes (%) (Auto) 6, Eosinophils (%) (Auto) 3, Basophils (%) (Auto) 0, Neutrophils # (Auto) 10.8H, Lymphocytes # (Auto) 1.4, Monocytes # (Auto) 0.9, Eosinophils # (Auto) 0.3, Basophils # (Auto) 0.0, Prothrombin Time 12.6, INR Comment 0.9, Activated Partial Thromboplast Time 21L, Sodium Level 141, Potassium Level 4.3, Chloride Level 105, Carbon Dioxide Level 20L, Anion Gap 16H , Blood Urea Nitrogen 14, Creatinine 1.08, Estimat Glomerular Filtration Rate > 60, BUN/Creatinine Ratio 13, Glucose Level 124H, Lactic Acid Level 1.53, Calcium Level 10.9H, Corrected Calcium , Magnesium Level 1.7L, Total Bilirubin 0.3, Aspartate Amino Transf (AST/SGOT) 36H, Alanine Aminotransferase (ALT/SGPT) 80H, Alkaline Phosphatase 120, Troponin I < 0.028, Total Protein 9.3H, Albumin 4.7H, Amylase Level 67, Lipase 30 09/07/18 06:55: White Blood Count 8.6, Red Blood Count 4.83, Hemoglobin 13.1L, Hematocrit 40, Mean Corpuscular Volume 83, Mean Corpuscular Hemoglobin 27, Mean Corpuscular Hemoglobin Concent 33, Red Cell Distribution Width 14.5, Platelet Count 306, Mean Platelet Volume 9.0, Neutrophils (%) (Auto) 68, Lymphocytes (%) (Auto) 19, Monocytes (%) (Auto) 11, Eosinophils (%) (Auto) 1, Basophils (%) (Auto) 0, Neutrophils # (Auto) 5.9, Lymphocytes # (Auto) 1.6, Monocytes # (Auto) 1.0, Eosinophils # (Auto) 0.1, Basophils # (Auto) 0.0 09/07/18 07:03: Sodium Level 144, Potassium Level 4.1, Chloride Level 109H, Carbon Dioxide Level 24, Anion Gap 11, Blood Urea Nitrogen 13, Creatinine 0.90, Estimat Glomerular Filtration Rate > 60, BUN/Creatinine Ratio 14, Glucose Level 139H, Calcium Level 9.6, Corrected Calcium 9.8, Total Bilirubin 0.3, Aspartate Amino Transf (AST/SGOT) 20, Alanine Aminotransferase (ALT/SGPT) 59H, Alkaline Phosphatase 91, Total Protein 7.3, Albumin 3.8 Assessment/Plan Assessment/Plan Assessment/Plan partial sbo- ng tube liws and small bowel follow through today ventral hernia abdominal pain- pain control hyrdocephalus-vp talent management shunt spina bifida conservative measures at this time. no surgical intervention at this time will follow Clinical Quality Measures DVT/VTE Risk/Contraindication: Risk Factor Score Per Nursin RFS Level Per Nursing on Admit: 4+=Very High MONTY STANLEY DO Sep 07, 2018 11:28
--- NOTE | 2018-09-07 11:50 | NUR ---
PATENT OFF FLOOR AT THIS TIME TO RADIOLOGY
[2018-09-07] MEDS ORDERED: BETA15CR3 TP (12:09)
[2018-09-07] MEDS ORDERED: HYDR28.3 TP (12:09)
[2018-09-07] MEDS ORDERED: MULT-633 PO (12:09)
[2018-09-07] MEDS ORDERED: MENT118G TP (12:10)
[2018-09-07] MEDS ORDERED: ACET-2267 PO (12:10)
[2018-09-07] MEDS ORDERED: NAPR-915 PO (12:10)
[2018-09-07] MEDS ORDERED: DIATRIZOATE MEGLUM/SODIUM 37% 120 ML (GASTROGRAFIN) NG ONE (12:15)
[2018-09-07] MEDS ORDERED: POVI30SO TOP (12:17)
[2018-09-07] MEDS ORDERED: KETO15CR2 TP (12:17)
[2018-09-07] MEDS ORDERED: ONDN4T PO (12:17)
--- NOTE | 2018-09-07 12:19 | NUR ---
UPDATED MED REC WITH [facility]
--- NOTE | 2018-09-07 16:04 | Diagnostic Imaging Report ---
INDICATION: Partial small bowel obstruction. TECHNIQUE: The patient was administered 240 mL of Gastrografin contrast mixed with 40 mL of water and serial radiography was performed over the abdomen and pelvis. COMPARISON: Correlation is made with the CT abdomen/pelvis study from one day earlier. FINDINGS: The preliminary radiograph shows an NG tube in the stomach. There are some significantly gaseous distended bowel loops in the central abdomen. The initial post injection radiograph does show contrast throughout the stomach which has a normal configuration. There appears to be prompt emptying from the stomach into the proximal small bowel loops. There is progression of contrast through the small bowel loops. There is some moderate small bowel distention. No mass is seen. The mucosal fold pattern is unremarkable. No definite obstructing lesion is seen. The patient appears to have had a colectomy. IMPRESSION: There are some moderately distended small bowel loops but no definite obstruction is seen. Dictated by: Dictated on workstation # [id number]
[2018-09-07] MEDS: cefTRIAXone 1,000 MG/SWFI 10 ML IV PUSH IV SCH ×2 (23:11)
[2018-09-08] MEDS: morphine INJ 4 MG/ML 1 ML (VIAL/SYRINGE) IVP PRN ×2 (00:15→06:18)
[2018-09-08] MEDS: LACTATED RINGERS 1,000 ML IV SCH ×2 (00:17→08:35)
[2018-09-08] MEDS: D5 1/2 NS W/KCL 20 MEQ/L 1,000 ML IV SCH ×4 (00:17→19:57)
[2018-09-08 03:59] VITALS: BP 126/78
[2018-09-08 08:00] VITALS: BP 156/92
[2018-09-08] MEDS: PANTOPRAZOLE 40 MG (PROTONIX) VIAL IV SCH (08:35)
--- NOTE | 2018-09-08 09:01 | Progress Note ---
Subjective Date Seen by a Provider: Sep 08, 2018 Time Seen by a Provider: 08:45 Subjective/Events-last exam PT REPORTS THAT HE IS FEELING BETTER, HE IS HUNGRY AND WOULD LIKE TO EAT TODAY - HE STATES THAT HE IS NOT SURE HOW HIS NG TUBE CAME OUT. HE DENIES ABDOMINAL PAIN, NAUSEA, DIARRHEA Review of Systems General: Fatigue HEENT: No Head Aches Pulmonary: No Dyspnea, No Cough Cardiovascular: No: Chest Pain, Palpitations Gastrointestinal: Abdominal Pain; No: Nausea Genitourinary: Other (CHRONIC DAVID) Neurological: Weakness; No: Confusion Focused Exam Lactate Level 09/06/18 18:14: Lactic Acid Level 1.53 Objective Exam Last Set of Vital Signs Vital Signs Date Time Temp Pulse Resp B/P (MAP) Pulse Ox O2 Delivery O2 Flow Rate FiO2 09/08/18 08:00 97.2 100 18 156/92 (113) 96 Room Air Capillary Refill : Less Than 3 Seconds I&O Intake and Output 09/08/18 00:00 Intake Total 2020 ml Output Total 4600 ml Balance -2580 ml Intake Oral 0 ml IV Total 2020 ml Output Urine Total 2125 ml Stool Total 2025 ml Gastric Drainage Total 450 ml General: Alert, Oriented X3, Cooperative, No Acute Distress HEENT: Atraumatic, PERRLA Neck: Supple Lungs: Clear to Auscultation Heart: Regular Rate Abdomen: Normal Bowel Sounds, Soft Extremities: No Cyanosis Neuro: Normal Speech, Cranial Nerves 3-12 NL Psych/Mental Status: Mental Status NL, Mood NL Results Lab Microbiology 09/06/18 Blood Culture - Preliminary, Resulted No growth 09/06/18 Urine Culture - Preliminary, Resulted Gram Negative Uma Assessment/Plan Assessment/Plan Assess & Plan/Chief Complaint SMALL BOWEL ILEUS URINARY TRACT INFECTION - GRAM NEGATIVE UMA SEIZURE DISORDER LARGE VENTRAL HERNIA HYDROCEPHALUS WITH SHUNT HYPERTENSION COLOSTOMY STATUS GENERAL DEBILITY MORBID OBESITY MILD LEUKOCYTOSIS CHRONIC INDWELLING DAVID CATHETER GOUT ESOPHAGEAL REFLUX SMALL BOWEL ILEUS - - IMPROVED - PT PULLED HIS NG TUBE OUT - IS DOING WELL. URINARY TRACT INFECTION - GRAM NEGATIVE UMA - PT HAD UA WITH MORGANELLA MORGANII - WITH BROAD RESISTANCE PATTERN - THEREFORE - CHANGE FROM ROCEPHIN TO MEROPENEM SINCE THIS WAS THE ONLY ANTIBIOTIC CHOICE ON HIS LAST URINE CULTURE SENSITIVITY REPORT. SEIZURE DISORDER - RESTART KEPPRA TODAY LARGE VENTRAL HERNIA - SUPPORTIVE CARE ONLY AT THIS TIME HYDROCEPHALUS WITH SHUNT - MONITOR SYMPTOMS - PT RECENTLY HAD TO HAVE SHUNT REPLACED - HAS BEEN FUNCTIONING WELL HYPERTENSION - RESTART ON TOPROL COLOSTOMY STATUS - SUPPORTIVE CARE ONLY AT THIS TIME GENERAL DEBILITY WITH MORBID OBESITY - SUPPORTIVE CARE, DECREASE CALORIC INTAKE SEIZURE DISORDER - RESTART KEPPRA HYPERTENSION - RESTART TOPROL GOUT - WILL EVENTUALLY RESTART ALLOPURINOL ESOPHAGEAL REFLUX - PT ON PROTONIX AT FACILITY - RESTART LATER IN THE WEEK Clinical Quality Measures DVT/VTE Risk/Contraindication: Risk Factor Score Per Nursin RFS Level Per Nursing on Admit: 4+=Very High MIRIAM SIERRA MD Sep 08, 2018 09:01
[2018-09-08] MEDS ORDERED: DICLOFENAC 1% GEL 100 GM (VOLTAREN) TUBE TOP PRN ×2 (09:15)
[2018-09-08] MEDS ORDERED: ACETAMINOPHEN 500 MG TAB (TYLENOL) PO NR (09:30)
--- NOTE | 2018-09-08 09:50 | NUR ---
TYLENOL 1000MG PO FOR HEADACHE.
[2018-09-08] MEDS: MEROPENEM 500 MG in WATER (STERILE) FOR INJECTION 10 ML IV SCH ×3 (09:58→20:32)
[2018-09-08] MEDS: meTOprolol TARTRATE 25 MG (LOPRESSOR) TABLET PO SCH ×2 (10:00→20:32)
[2018-09-08] MEDS: LEVETIRACETAM 1,000 MG (KEPPRA) TABLET PO SCH ×2 (10:00→20:32)
[2018-09-08] MEDS: DULoxetine 30 MG (CYMBALTA) CAP PO SCH (10:02)
[2018-09-08 12:00] VITALS: BP 146/84
--- NOTE | 2018-09-08 14:39 | NUR ---
Initial visit: pt is [place] and shared that the past year of serious illness helped him become closer to friends who are health-giving and spiritually encouraging.
--- NOTE | 2018-09-08 15:09 | Progress Note ---
Subjective Date Seen by a Provider: Sep 08, 2018 Time Seen by a Provider: 15:04 Subjective/Events-last exam Patient feeling better. Not having any nausea or emesis. No abdominal pain. Output from ostomy. Small bowel follow through with slight distention of small bowel, no evidence of obstruction Focused Exam Lactate Level 09/06/18 18:14: Lactic Acid Level 1.53 Objective Exam Vital Signs Date Time Temp Pulse Resp B/P (MAP) Pulse Ox O2 Delivery O2 Flow Rate FiO2 09/08/18 12:00 96.8 91 18 146/84 (104) 99 Room Air 09/08/18 08:00 96 Room Air 09/08/18 08:00 97.2 100 18 156/92 (113) 96 Room Air 09/08/18 03:59 98.5 110 18 126/78 (94) 96 Room Air 09/07/18 23:30 97.9 108 18 124/71 (88) 95 Room Air 09/07/18 20:30 Room Air 09/07/18 20:00 97.3 112 18 130/81 (97) 96 Room Air 09/07/18 18:00 97.5 112 20 141/87 (105) 94 Room Air 09/07/18 15:40 97.2 104 20 139/82 (101) 96 Room Air I & O 09/08/18 07:00 Intake Total 3010 ml Output Total 4000 ml Balance -990 ml Capillary Refill : Less Than 3 SecondsLess Than 3 Seconds General Appearance: No Apparent Distress HEENT: PERRL/EOMI Neck: Non Tender, Supple Respiratory: Chest Non Tender, No Accessory Muscle Use, No Respiratory Distress Cardiovascular: Regular Rate, Rhythm Gastrointestinal: non tender (suprapubic catheter, ostomy right lower quadrant , large ventral hernia), soft Extremity: Non Tender Neurologic/Psychiatric: Alert, Oriented x3, No Motor/Sensory Deficits Skin: Normal Color, Warm/Dry Lymphatic: No Adenopathy Results Lab Microbiology 09/06/18 Blood Culture - Preliminary, Resulted No growth 09/06/18 Urine Culture - Preliminary, Resulted Gram Negative Uma Assessment/Plan Assessment/Plan Assessment/Plan PARTIAL SMALL BOWEL OBSTRUCTION URINARY TRACT INFECTION - GRAM NEGATIVE UMA SEIZURE DISORDER LARGE VENTRAL HERNIA HYDROCEPHALUS WITH SHUNT HYPERTENSION GENERAL DEBILITY MORBID OBESITY Abx switched to Meropenem for UTI. small bowel obstruction resolved has output from ostomy no surgical intervention start clears. Clinical Quality Measures DVT/VTE Risk/Contraindication: Risk Factor Score Per Nursin RFS Level Per Nursing on Admit: 4+=Very High MONTY STANLEY DO Sep 08, 2018 15:09
[2018-09-08 16:01] VITALS: BP 147/79
[2018-09-08] MEDS: ACETAMINOPHEN 500 MG TAB (TYLENOL) PO PRN (16:39)
--- NOTE | 2018-09-08 16:40 | NUR ---
TYLENOL 500MG PO FOR HEADACHE.
[2018-09-08 20:24] VITALS: BP 164/83
[2018-09-08] MEDS ORDERED: DICLOFENAC 1% GEL 100 GM (VOLTAREN) TUBE TOP SCH (21:00)
[2018-09-09] VITALS: BP 133/75
[2018-09-09] MEDS: ACETAMINOPHEN 500 MG TAB (TYLENOL) PO PRN ×2 (00:26→08:20)
[2018-09-09] MEDS: D5 1/2 NS W/KCL 20 MEQ/L 1,000 ML IV SCH (02:48)
[2018-09-09] MEDS: MEROPENEM 500 MG in WATER (STERILE) FOR INJECTION 10 ML IV SCH ×2 (03:50→08:20)
[2018-09-09 04:50] VITALS: BP 139/82
--- NOTE | 2018-09-09 07:49 | Progress Note ---
Subjective Date Seen by a Provider: Sep 09, 2018 Time Seen by a Provider: 07:44 Subjective/Events-last exam Patient feeling good. Tolerating clears liquid diet. No abdominal pain. Denies nausea or emesis. No fever sweats chills shortness of breath or chest pain. Focused Exam Lactate Level 09/06/18 18:14: Lactic Acid Level 1.53 Objective Exam Vital Signs Date Time Temp Pulse Resp B/P (MAP) Pulse Ox O2 Delivery O2 Flow Rate FiO2 09/09/18 04:50 97.8 86 18 139/82 (101) 97 Room Air 09/09/18 00:00 98.6 76 16 133/75 (94) 99 Room Air 09/08/18 20:24 97.6 89 20 164/83 (110) 98 Room Air 09/08/18 20:00 Room Air 09/08/18 16:01 96.5 87 18 147/79 (101) 98 Room Air 09/08/18 12:00 96.8 91 18 146/84 (104) 99 Room Air 09/08/18 08:00 96 Room Air 09/08/18 08:00 97.2 100 18 156/92 (113) 96 Room Air I & O 09/09/18 07:00 Intake Total 6690 ml Output Total 6950 ml Balance -260 ml Capillary Refill : Less Than 3 SecondsLess Than 3 Seconds General Appearance: No Apparent Distress HEENT: PERRL/EOMI Neck: Non Tender, Supple Respiratory: Chest Non Tender, No Accessory Muscle Use, No Respiratory Distress Cardiovascular: Regular Rate, Rhythm Gastrointestinal: non tender (suprapubic catheter, ostomy right lower quadrant , large ventral hernia), soft Extremity: Non Tender Neurologic/Psychiatric: Alert, Oriented x3, No Motor/Sensory Deficits Skin: Normal Color, Warm/Dry Lymphatic: No Adenopathy Results Lab Microbiology 09/06/18 Blood Culture - Preliminary, Resulted No growth 09/06/18 Urine Culture - Preliminary, Resulted Gram Negative Uma Assessment/Plan Assessment/Plan Assessment/Plan PARTIAL SMALL BOWEL OBSTRUCTION URINARY TRACT INFECTION - GRAM NEGATIVE UMA SEIZURE DISORDER LARGE VENTRAL HERNIA HYDROCEPHALUS WITH SHUNT HYPERTENSION GENERAL DEBILITY MORBID OBESITY Abx switched to Meropenem for UTI awaiting cultures. small bowel obstruction resolved has output from ostomy, advance diet, discussed not over eating. no surgical intervention Clinical Quality Measures DVT/VTE Risk/Contraindication: Risk Factor Score Per Nursin RFS Level Per Nursing on Admit: 4+=Very High MONTY STANLEY DO Sep 09, 2018 07:49
[2018-09-09 08:00] VITALS: BP 142/86
[2018-09-09] MEDS: LEVETIRACETAM 1,000 MG (KEPPRA) TABLET PO SCH (08:20)
[2018-09-09] MEDS: meTOprolol TARTRATE 25 MG (LOPRESSOR) TABLET PO SCH (08:20)
[2018-09-09] MEDS: PANTOPRAZOLE 40 MG (PROTONIX) VIAL IV SCH (08:21)
[2018-09-09] MEDS: DULoxetine 30 MG (CYMBALTA) CAP PO SCH (08:21)
--- NOTE | 2018-09-09 08:51 | Progress Note ---
Subjective Date Seen by a Provider: Sep 09, 2018 Time Seen by a Provider: 08:51 Focused Exam Lactate Level 09/06/18 18:14: Lactic Acid Level 1.53 Objective Exam Last Set of Vital Signs Vital Signs Date Time Temp Pulse Resp B/P (MAP) Pulse Ox O2 Delivery O2 Flow Rate FiO2 09/09/18 08:00 97.7 75 20 142/86 (104) 98 Room Air Capillary Refill : Less Than 3 SecondsLess Than 3 Seconds I&O Intake and Output 09/09/18 00:00 Intake Total 8590 ml Output Total 5775 ml Balance 2815 ml Intake Oral 3330 ml IV Total 5260 ml Output Urine Total 4575 ml Stool Total 1200 ml General: Alert Results Lab Microbiology 09/06/18 Blood Culture - Preliminary, Resulted No growth 09/06/18 Urine Culture - Preliminary, Resulted Gram Negative Girma Assessment/Plan Assessment/Plan Assess & Plan/Chief Complaint SEE DC SUMMARY Clinical Quality Measures DVT/VTE Risk/Contraindication: Risk Factor Score Per Nursin RFS Level Per Nursing on Admit: 4+=Very High MIRIAM SIERRA MD Sep 09, 2018 08:51
--- NOTE | 2018-09-09 09:51 | NUR ---
CM/SS patient will return to [facility] this [facility]. They will transport at 1300. Will fax the discharge information when it is available.
--- NOTE | 2018-09-09 10:05 | Discharge Summary ---
Diagnosis/Chief Complaint Date of Admission Sep 06, 2018 at 20:15 Date of Discharge 09/09/18 Discharge Date: Sep 09, 2018 Discharge Time: 10:00 Admission Diagnosis Admission Diagnosis SMALL BOWEL OBSTRUCTION URINARY TRACT INFECTION SEIZURE DISORDER LARGE VENTRAL HERNIA HYDROCEPHALUS WITH SHUNT HYPERTENSION COLOSTOMY STATUS GENERAL DEBILITY MORBID OBESITY MILD LEUKOCYTOSIS CHRONIC INDWELLING DAVID CATHETER GOUT ESOPHAGEAL REFLUX Discharge Diagnosis SMALL BOWEL ILEUS URINARY TRACT INFECTION - GRAM NEGATIVE UMA SEIZURE DISORDER LARGE VENTRAL HERNIA HYDROCEPHALUS WITH SHUNT HYPERTENSION COLOSTOMY STATUS GENERAL DEBILITY MORBID OBESITY MILD LEUKOCYTOSIS CHRONIC INDWELLING DAVID CATHETER GOUT ESOPHAGEAL REFLUX Reason Hospital Visit PT IS A 32 Y/O MALE WHO IS WELL KNOWN TO ME FROM CLINIC. HE PRESENTS TO THE HOSPITAL WITH OVER 24 HOURS OF VOMITING. APPARENTLY IT STARTED LATE ON WEDNESDAY EVENING AND THE NURSING STAFF WAITED TO CALL THE OFFICE UNTIL 3PM ON WEDNESDAY TO INFORM MY OFFICE THAT HE WAS HAVING SUCH EXCESSIVE EMESIS. HIS FAMILY REPORTS THAT HE HAD APPARENTLY BEEN TO A PENTECOSTALISM DINNER ON WEDNESDAY AND HE OVERATE TO AN EXTREME AMOUNT. Discharge Summary Discharge Physical Examination Allergies: Coded Allergies: latex (Verified Allergy, Unknown, 09/06/18) Vitals & I&Os Vital Signs Date Time Temp Pulse Resp B/P (MAP) Pulse Ox O2 Delivery O2 Flow Rate FiO2 09/09/18 08:00 97.7 75 20 142/86 (104) 98 Room Air General Appearance: Alert HEENT: Atraumatic, PERRLA Respiratory: Clear to Auscultation Cardiovascular: Regular Rate Abdominal: Normal Bowel Sounds, Soft Extremities: No Cyanosis Neuro: Normal Speech, Cranial Nerves 3-12 NL Psych/Mental Status: Mental Status NL, Mood NL Hospital Course Was the Problem List Reviewed?: Yes SMALL BOWEL ILEUS URINARY TRACT INFECTION - GRAM NEGATIVE UMA SEIZURE DISORDER LARGE VENTRAL HERNIA HYDROCEPHALUS WITH SHUNT HYPERTENSION COLOSTOMY STATUS GENERAL DEBILITY MORBID OBESITY MILD LEUKOCYTOSIS CHRONIC INDWELLING DAVID CATHETER GOUT ESOPHAGEAL REFLUX SMALL BOWEL ILEUS - - IMPROVED - PT PULLED HIS NG TUBE OUT - IS DOING WELL WITH ORAL INTAKE - MONITOR SYMPTOMS AT FACILITY CLOSELY - I HAVE DECREASED HIS DIET TO REGULAR BREAKFAST AND 1/2 PORTIONS AT LUNCH AND SUPPER. I HAVE HAD A LONG AND JANET DISCUSSION WITH SHELIA ABOUT HIS EXCESSIVE INTAKE OF FOODS - HE VOCALIZED HIS UNDERSTANDING OF THIS RECOMMENDATION AND THE RISK OT HIS LIFE OF EXCESSIVE FOOD INTAKE. URINARY TRACT INFECTION - PSEUDOMONAS AND ENTEROBACTER - DISCUSSED WITH PHARMACY AND MICROBIOLOGY - PT HAS CHRONIC INDWELLING DAVID CATHETER - WILL SEND PT OUT WITH A NEW CATHETER AND ORAL CIPROFLOXACIN. SEIZURE DISORDER - RESTARTED KEPPRA. LARGE VENTRAL HERNIA - SUPPORTIVE CARE ONLY AT THIS TIME HYDROCEPHALUS WITH SHUNT - MONITOR SYMPTOMS - PT RECENTLY HAD TO HAVE SHUNT REPLACED - HAS BEEN FUNCTIONING WELL HYPERTENSION - RESTARTED ON TOPROL COLOSTOMY STATUS - SUPPORTIVE CARE ONLY AT THIS TIME GENERAL DEBILITY WITH MORBID OBESITY - SUPPORTIVE CARE, DECREASE CALORIC INTAKE SEIZURE DISORDER - RESTART KEPPRA HYPERTENSION - RESTART TOPROL GOUT - WILL EVENTUALLY RESTART ALLOPURINOL ESOPHAGEAL REFLUX - PT ON PROTONIX AT FACILITY - RESTART ON DISCHARGE Discharge Condition at discharge IMPROVED Instructions to patient/family Please see electronic discharge instructions given to patient. Discharge Medications Reviewed and agree with Discharge Medication list on patient's Discharge Instruction sheet Clinical Quality Measures DVT/VTE Risk/Contraindication: Risk Factor Score Per Nursin RFS Level Per Nursing on Admit: 4+=Very High MIRIAM SIERRA MD Sep 09, 2018 10:05
[2018-09-09] MEDS ORDERED: METO-310 PO (10:12)
[2018-09-09] MEDS ORDERED: CIPR500T21 PO (10:12)
[2018-09-09] MEDS ORDERED: CIPROFLOXACIN 500 MG (CIPRO) TABLET PO NR (10:15)
--- NOTE | 2018-09-09 10:18 | Discharge Inst-Skilled Nursing ---
Discharge Inst-Skilled NF Patient Instructions Patient Problems: SMALL BOWEL ILEUS URINARY TRACT INFECTION - GRAM NEGATIVE UMA SEIZURE DISORDER LARGE VENTRAL HERNIA HYDROCEPHALUS WITH SHUNT HYPERTENSION COLOSTOMY STATUS GENERAL DEBILITY MORBID OBESITY MILD LEUKOCYTOSIS CHRONIC INDWELLING DAVID CATHETER GOUT ESOPHAGEAL REFLUX Consult/Follow Up/Orders Follow Up Appt.: [facility] Skilled NF Admit to: [facility] Certification (SNF) I certify that SNF services are required to be given on an inpatient basis because of the above named patient's need for intermediate care on a continuing basis for the conditions(s) for which he/she was receiving inpatient hospital services prior to his/her transfer to the SNF. Care Home Facility Order: Nursing Services, Voice Studies Director-Evaluate & Treat, Physical Therapy-Evaluate & Treat Oxygen Delivery Method: Room Air Discharge Diet: Other Diet (REGULAR BREAKFAST AND 1/2 PORTION FOR LUNCH AND SUPPER) Daily Activity as Tolerated: Yes New & Resume Previous Orders Miriam Nuñez Sep 09, 2018 10:17 MIRIAM NUÑEZ MD Sep 09, 2018 10:18
--- NOTE | 2018-09-09 10:35 | NUR ---
Important Message from Medicare presented/reviewed/signed and placed in patient's chart. Patient voiced no intention to appeal and deny any needs or further questions at this time.
--- NOTE | 2018-09-09 10:54 | NUR ---
CM/[facility] needed to spanish moss picker patient earlier if possible, earliest RNing could do is 12pm. Discharge information sent to facility.
--- NOTE | 2018-09-09 11:45 | NUR ---
SUPRAPUBIC CHANGED WITH REBECA BELTRAN. 16 [place] CATHETER PLACED WITH 25ML OF NS. SCANT AMOUNT OF BLEEDING AROUND SITE. DR SIERRA PREVIOUSLY NOTIFIED. PT TOLERATED WELL.
[2018-09-09 12:00] VITALS: BP 134/84
--- NOTE | 2018-09-09 13:00 | NUR ---
CHRISTEN CHRISTIANSON discharged to [facility]. notified of discharge and report given to . CHRISTEN CHRISTIANSON belongings sent with . CHRISTEN CHRISTIANSON discharged with SUPRAPUBIC catheter, Vital signs are stable at time of discharge. Condition is stable at time of discharge. Discharge instructions and copies of H&P, discharge summary, physician's order, lab reports, consultation reports, other dictated reports, diagnostic imaging reports, Advance Directive, eMAR, vital signs, intake and output sent with . Patient discharged at 1300 . CHRISTEN CHRISTIANSON left floor via , accompanied by STAFF AND .
[2018-09-09 13:24] VITALS: BP 134/84
--- NOTE | 2018-09-12 15:34 | Physician Query Clarification ---
PQ-Link Infection to Dev/Proc Admission/Discharge Admission Date: Sep 06, 2018 at 20:15 Discharge Date: Sep 09, 2018 at 13:00 The medical record reflects the following clinical scenario: History/Risk Factors: SUPRAPUBIC CATHETER FOR NEUROGENIC BLADDER Clinical Findings: SUPRAPUBIC CATHETER FOR NEUROGENIC BLADDER Treatment: ROCEPHIN 1 gm IV Question: Can you specify if the UTI is due to/associated with SUPRAPUBIC CATHETER? Please document a response below. PHYSICIAN RESPONSE Specify if infection: Yes,due to/associated with device In responding to this query, please exercise your independent professional judgment. The purpose of this communication is to more accurately reflect the complexity of your patients condition. The fact that a question is asked does not imply that any particular answer is desired or expected. Thank you for your timely response to this clarification. Requestors name: Kisha Pena THIS PHYSICIAN QUERY FORM IS A PERMANENT PART OF THE MEDICAL RECORD PUJA PENA Sep 12, 2018 15:34 MIRIAM SIERRA MD Sep 13, 2018 13:12
== END 2018-09-09 13:00 | DRG 389 ==
LOC: EDUNIT# 17:10 → ER 17:11 → 4TH 20:15
PROVIDERS: ADMIT Family Medicine; ATTEND Family Medicine
PROC: 0D9670Z Drainage of Stomach with Drainage Device, Via Natural or Artificial Opening (ICD-10-PCS; principal; 2018-09-06)
DX: K56.7 Ileus, unspecified (principal); T83.510A Infection and inflammatory reaction due to cystostomy catheter, initial encounter; N39.0 Urinary tract infection, site not specified; Q05.4 Unspecified spina bifida with hydrocephalus; E66.01 Morbid (severe) obesity due to excess calories; Z68.42 Body mass index [BMI] 45.0-49.9, adult; K43.9 Ventral hernia without obstruction or gangrene; N31.9 Neuromuscular dysfunction of bladder, unspecified; J45.909 Unspecified asthma, uncomplicated; I10 Essential (primary) hypertension; E11.9 Type 2 diabetes mellitus without complications; F32.9 Major depressive disorder, single episode, unspecified; G40.909 Epilepsy, unspecified, not intractable, without status epilepticus; K21.9 Gastro-esophageal reflux disease without esophagitis; M10.9 Gout, unspecified; R53.81 Other malaise; B96.5 Pseudomonas (aeruginosa) (mallei) (pseudomallei) as the cause of diseases classified elsewhere; B96.89 Other specified bacterial agents as the cause of diseases classified elsewhere; Z93.3 Colostomy status; Z93.50 Unspecified cystostomy status; Z98.2 Presence of cerebrospinal fluid drainage device
CPT/HCPCS: 36415; 71045; 74176; 74250; 80053; 81000; 82150; 83605; 83690; 83735; 84484; 85025; 85610; 85730; 87040; 87077; 87088; 87186; 93005; 93041; 96374; 96375

== ENCOUNTER → 2019-01-20 | Outpatient (CLI) | payer MEDICARE, MEDICAID ==
[~2019-01-20] MED LIST changes: +BETA15CR3 TP; +CIPR500T21 PO; +HYDR28.3 TP; +KETO15CR2 TP; +MENT118G TP; +MULT-633 PO; +NAPR-915 PO; +POVI30SO TOP
== END ==
LOC: WOUNDCARE 08:41
PROVIDERS: ATTEND Surgery
DX: L97.411 Non-pressure chronic ulcer of right heel and midfoot limited to breakdown of skin (principal); G82.21 Paraplegia, complete; Q05.7 Lumbar spina bifida without hydrocephalus; E11.621 Type 2 diabetes mellitus with foot ulcer
CPT/HCPCS: 99213

== ENCOUNTER → 2019-01-27 | Outpatient (CLI) | payer MEDICARE, MEDICAID | LOC: WOUNDCARE 08:58 | PROVIDERS: ATTEND Surgery | DX: L97.411 Non-pressure chronic ulcer of right heel and midfoot limited to breakdown of skin (principal); G82.21 Paraplegia, complete; Q05.7 Lumbar spina bifida without hydrocephalus; E11.621 Type 2 diabetes mellitus with foot ulcer | CPT/HCPCS: 99212 ==

== ENCOUNTER → 2019-06-01 | Outpatient (CLI) | payer MEDICARE, MEDICAID | LOC: WOUNDCARE 13:12 | PROVIDERS: ATTEND Orthopaedic Surgery Hand Surgery | DX: L98.492 Non-pressure chronic ulcer of skin of other sites with fat layer exposed (principal); L30.4 Erythema intertrigo; E66.01 Morbid (severe) obesity due to excess calories | CPT/HCPCS: 11042 ==

== ENCOUNTER → 2019-06-06 | Outpatient (CLI) | payer MEDICARE, MEDICAID | LOC: WOUNDCARE 09:34 | PROVIDERS: ATTEND Orthopaedic Surgery Hand Surgery | DX: L98.492 Non-pressure chronic ulcer of skin of other sites with fat layer exposed (principal); L30.4 Erythema intertrigo; E66.01 Morbid (severe) obesity due to excess calories | CPT/HCPCS: 11042 ==

== ENCOUNTER → 2019-06-13 | Outpatient (CLI) | payer MEDICARE, MEDICAID | LOC: WOUNDCARE 09:56 | PROVIDERS: ATTEND Orthopaedic Surgery Hand Surgery | DX: L98.492 Non-pressure chronic ulcer of skin of other sites with fat layer exposed (principal); L30.4 Erythema intertrigo; E66.01 Morbid (severe) obesity due to excess calories | CPT/HCPCS: 11042 ==

== ENCOUNTER → 2019-06-20 | Outpatient (CLI) | payer MEDICARE, MEDICAID | LOC: WOUNDCARE 09:56 | PROVIDERS: ATTEND Orthopaedic Surgery Hand Surgery | DX: L98.492 Non-pressure chronic ulcer of skin of other sites with fat layer exposed (principal); L30.4 Erythema intertrigo; E66.01 Morbid (severe) obesity due to excess calories | CPT/HCPCS: 11042 ==

== ENCOUNTER → 2019-06-27 | Outpatient (CLI) | payer MEDICARE, MEDICAID | LOC: WOUNDCARE 10:10 | PROVIDERS: ATTEND Orthopaedic Surgery Hand Surgery | DX: L98.492 Non-pressure chronic ulcer of skin of other sites with fat layer exposed (principal); L30.4 Erythema intertrigo; E66.01 Morbid (severe) obesity due to excess calories | CPT/HCPCS: 99213 ==

== ENCOUNTER → 2019-07-04 | Outpatient (CLI) | payer MEDICARE, MEDICAID | LOC: WOUNDCARE 10:12 | PROVIDERS: ATTEND Orthopaedic Surgery Hand Surgery | DX: L98.492 Non-pressure chronic ulcer of skin of other sites with fat layer exposed (principal); L30.4 Erythema intertrigo; E66.01 Morbid (severe) obesity due to excess calories | CPT/HCPCS: 97597 ==

== ENCOUNTER → 2019-07-11 | Outpatient (CLI) | payer MEDICARE, MEDICAID ==
[~2019-07-11] MED LIST changes: -CETI10TA20 PO; +CETI10TA21 PO
== END ==
LOC: WOUNDCARE 09:43
PROVIDERS: ATTEND Orthopaedic Surgery Hand Surgery
DX: L98.492 Non-pressure chronic ulcer of skin of other sites with fat layer exposed (principal); L30.4 Erythema intertrigo; E66.01 Morbid (severe) obesity due to excess calories; I96 Gangrene, not elsewhere classified
CPT/HCPCS: 11042

== ENCOUNTER → 2019-07-18 | Outpatient (CLI) | payer MEDICARE, MEDICAID ==
[~2019-07-18] MED LIST changes: +ACHD5005 PO; -HYDR-3812 PO
== END ==
LOC: WOUNDCARE 10:14
PROVIDERS: ATTEND Surgery
DX: L98.492 Non-pressure chronic ulcer of skin of other sites with fat layer exposed (principal); L98.491 Non-pressure chronic ulcer of skin of other sites limited to breakdown of skin; L30.4 Erythema intertrigo; G82.21 Paraplegia, complete; E66.01 Morbid (severe) obesity due to excess calories; I96 Gangrene, not elsewhere classified
CPT/HCPCS: 99213

== ENCOUNTER → 2019-07-25 | Outpatient (CLI) | payer MEDICARE, MEDICAID | LOC: WOUNDCARE 10:27 | PROVIDERS: ATTEND Surgery | DX: I96 Gangrene, not elsewhere classified (principal); L98.492 Non-pressure chronic ulcer of skin of other sites with fat layer exposed; G82.20 Paraplegia, unspecified; E66.01 Morbid (severe) obesity due to excess calories; L30.4 Erythema intertrigo | CPT/HCPCS: 99213 ==

== ENCOUNTER 2021-01-14 05:42 | Outpatient (CLI) | payer MEDICARE, MEDICAID ==
[~2021-01-14] VITALS: Ht 162.6 cm; Wt 134.5 kg
[~2021-01-14 05:42] MED LIST changes: -CETI10TA21 PO; +CETI10TA49 PO; -OLOP2.5D OU; +OLOP2.5D12 OU; -PHEN28OI6 RC; +PHEN28OI9 RC
[2021-01-15] MEDS ORDERED: DIPH25CA79 PO (09:18)
[2021-01-15] MEDS ORDERED: GBPN600T PO (09:18)
== END 2021-01-15 13:55 ==
LOC: PREOP 05:42
PROVIDERS: ATTEND Surgery
DX: Z01.818 Encounter for other preprocedural examination (principal)

== ENCOUNTER 2021-01-21 10:57 | Day surgery (SDC) | payer MEDICARE, MEDICAID ==
[~2021-01-21] VITALS: Ht 162.6 cm; Wt 134.5 kg
[~2021-01-21 10:57] MED LIST changes: +DIPH25CA79 PO; +GBPN600T PO
[2021-01-21] MEDS ORDERED: LACTATED RINGERS 1,000 ML IV STA (11:03)
[2021-01-21] MEDS ORDERED: HURRICAINE EXT TUBE (BENZOCAINE) XX PRN (11:15)
[2021-01-21 11:32] VITALS: BP 152/103
[2021-01-21] MEDS ORDERED: proPOfol 200 MG/20 ML (DIPRIVAN) VIAL IV ONE (11:47)
[2021-01-21] MEDS ORDERED: MIDAZOLAM 2 MG/2 ML (VERSED) VIAL ONE (11:47)
[2021-01-21] MEDS ORDERED: PROPOFOL INJECTION 50 ML IV ONE (11:56)
--- NOTE | 2021-01-21 12:45 | Anesthesia-General Post-Op ---
MAC Patient Condition Mental Status/LOC: Same as Preop Cardiovascular: Satisfactory Nausea/Vomiting: Absent Respiratory: Satisfactory Pain: Controlled Complications: Absent Post Op Complications Complications None Follow Up Care/Instructions Patient Instructions None needed. Anesthesiology Discharge Order Discharge Order Patient is doing well, no complaints, stable vital signs, no apparent adverse anesthesia problems. No complications reported per nursing. GASPER ALTAMIRANO CRNA Jan 21, 2021 12:45
[2021-01-21 12:50] VITALS: BP 146/96
[2021-01-21 12:55] VITALS: BP 146/96
--- NOTE | 2021-01-21 13:21 | Discharge Inst-Simple/Standard ---
Discharge Inst-Standard Discharge Medications New, Converted or Re-Newed RX: RX on Chart Patient Instructions/Follow Up Plan of Care/Instructions/FU: 2 weeks columba Activity as Tolerated: Yes Discharge Diet: Regular Diet MONTY STANLEY DO Jan 21, 2021 13:21
--- NOTE | 2021-01-21 13:27 | Progress Note-Post Operative ---
Post-Operative Progess Note Surgeon (s)/Custom Grinder (s) Surgeon MONTY STANLEY DO Custom Grinder: na Pre-Operative Diagnosis anemia, occult + stool, gerd Post-Operative Diagnosis rectal polyp, diversion colitis, gerd Procedure & Operative Findings Date of Procedure 01/21/21 Procedure Performed/Findings egd c biopsies, proctoscopy c snare polypectomy x 1, ileoscopy Anesthesia Type per cross country/track and field coach Estimated Blood Loss Estimated blood loss (mL): none Specimens/Packing Specimens Removed antrum, ge, rectal polyp MONTY STANLEY DO Jan 21, 2021 13:27
[2021-01-21 13:37] VITALS: BP 140/95
--- NOTE | 2021-01-21 15:06 | OPERATIVE REPORT ---
DATE OF SERVICE: 01/21/2021 PREOPERATIVE DIAGNOSES: Anemia, occult positive stool, gastroesophageal reflux disease. POSTOPERATIVE DIAGNOSES: Rectal polyp, diversion colitis, gastroesophageal reflux disease. PROCEDURE: EGD with biopsies, proctoscopy with snare polypectomy x1 and ileoscopy. SURGEON: Monty Harden DO ANESTHESIA: Per HYDRO TECHNICIAN. ESTIMATED BLOOD LOSS: None. SPECIMENS: Antrum, GE junction and rectal polyp. INDICATIONS: The patient is a 35-year-old male, who was found to be anemic, had occult positive stool and having reflux symptoms. He understands risks and benefits of procedure and wished to proceed with procedure. Consent was signed in the chart. DESCRIPTION OF PROCEDURE: The patient was taken to the endoscopy suite, placed in left lateral recumbent position. Timeout was performed. Scope was inserted in mouth, down the esophagus, stomach and into the duodenum without difficulty. There were no polyps, masses or ulcerations. Scope was slowly retracted back into the stomach where it was further insufflated. No polyps, masses or ulcerations. Biopsy of the antrum was obtained. Scope was retroflexed noting no other pathology. Scope was returned to its normal position, slowly withdrawn into the distal esophagus. Biopsy of the GE junction was obtained. No polyps, masses or ulcerations. Scope was slowly retracted back to completely remove, noting no other pathology. Digital rectal exam was performed noting mucus stool within the rectal vault. This was evacuated. Scope was inserted and diversion colitis apparent. Still some stool, which lots of irrigation was used to start to irrigate and then manually disimpact. Once all that could be was evacuated, the scope was inserted into the rectum again noting some diversion colitis changes. There was one rectal polyp, which snare polypectomy was performed. This was obtained for pathology. There was still a significant amount of mucus stool within this area. Therefore, the scope was then slowly retracted back and completely removed. Scope was then inserted into the stoma in the right lower quadrant, I believe this to be an ileostomy, but there is question the patient believed this to be a colostomy. The scope was inserted through the stoma and inserted as far as I could be without any evidence of finding the ileocolonic or the ileocecal valve. There was a hernia present, which did make scoping difficulty, but was unable to find the ileocecal valve. Therefore, scope was then continued to be slowly retracted, no polyps, masses or ulcerations visualized through the portion of bowel visualized. RECOMMENDATIONS: The patient will follow up in the office in 2 weeks. We will obtain operative records from outside facility. We would recommend repeating the evaluation of the rectal stump in about 3 to 6 months for reevaluation and performed further enemas to clean out. Job ID: [id number] DocumentID: [id number] Dictated Date: 01/21/2021 13:47:52 Electric Motor Winders Assembler Date: 01/21/2021 15:05:26 Dictated By: MONTY HARDEN DO
== END 2021-01-21 13:45 | disposition home or self-care (01) ==
LOC: ENDO 10:57
PROVIDERS: ATTEND Surgery
DX: K62.1 Rectal polyp (principal); K31.89 Other diseases of stomach and duodenum; K52.89 Other specified noninfective gastroenteritis and colitis; K21.9 Gastro-esophageal reflux disease without esophagitis; D50.9 Iron deficiency anemia, unspecified; R19.5 Other fecal abnormalities; I10 Essential (primary) hypertension; E66.01 Morbid (severe) obesity due to excess calories; E11.9 Type 2 diabetes mellitus without complications; Q05.9 Spina bifida, unspecified; F32.9 Major depressive disorder, single episode, unspecified; Z68.43 Body mass index [BMI] 50.0-59.9, adult; Z79.899 Other long term (current) drug therapy; Z87.891 Personal history of nicotine dependence; E78.00 Pure hypercholesterolemia, unspecified; Z82.49 Family history of ischemic heart disease and other diseases of the circulatory system
CPT/HCPCS: 88305

== ENCOUNTER 2022-01-16 13:26 | Outpatient (CLI) | payer MEDICARE, MEDICAID ==
[~2022-01-16] VITALS: Ht 162.6 cm; Wt 122.9 kg
[~2022-01-16 13:26] MED LIST changes: -NYST15CR TP; +NYST15CR35 TP
== END 2022-01-16 14:15 | disposition home or self-care (01) ==
LOC: PREOP 13:26
PROVIDERS: ATTEND Surgery
DX: Z01.818 Encounter for other preprocedural examination (principal)

== ENCOUNTER 2022-01-23 12:12 | Day surgery (SDC) | payer MEDICARE, MEDICAID ==
[~2022-01-23] VITALS: Ht 162.6 cm; Wt 122.9 kg
[2022-01-23] MEDS ORDERED: LACTATED RINGERS 1,000 ML IV STA (12:27)
[2022-01-23 13:56] VITALS: BP 177/109
--- NOTE | 2022-01-23 14:07 | Progress Note-Pre Operative ---
Pre-Operative Progress Note Date of Available H&P: Jan 12, 2022 Date H&P Reviewed: Jan 23, 2022 Time H&P Reviewed: 14:07 History & Physical: H&P Reviewed, Patient Examed, No changes noted Pre-Operative Diagnosis: painless rectal bleeding MONTY STANLEY DO Jan 23, 2022 14:07
[2022-01-23] MEDS ORDERED: PROPOFOL INJECTION 50 ML IV ONE (14:49)
[2022-01-23] MEDS ORDERED: MIDAZOLAM 2 MG/2 ML (VERSED) VIAL ONE (14:49)
[2022-01-23 15:25] VITALS: BP 188/95
--- NOTE | 2022-01-23 15:29 | Discharge Inst-Simple/Standard ---
Discharge Inst-Standard Patient Instructions/Follow Up Plan of Care/Instructions/FU: 2 weeks columba Activity as Tolerated: Yes Discharge Diet: Regular Diet MONTY STANLEY DO Jan 23, 2022 15:29
[2022-01-23 15:30] VITALS: BP 191/104
[2022-01-23 15:35] VITALS: BP 189/113
--- NOTE | 2022-01-23 15:37 | Progress Note-Post Operative ---
Post-Operative Progess Note Surgeon (s)/Marine Engine Machinist Apprentice (s) Surgeon MONTY STANLEY DO Marine Engine Machinist Apprentice: na Pre-Operative Diagnosis painless rectal bleeding Post-Operative Diagnosis proctitis Procedure & Operative Findings Date of Procedure 01/23/22 Procedure Performed/Findings flex sig c cold biopsies Anesthesia Type per slipman Estimated Blood Loss Estimated blood loss (mL): scant Specimens/Packing Specimens Removed rectal cold biopsies MONTY STANLEY DO Jan 23, 2022 15:37
--- NOTE | 2022-01-23 15:55 | Anesthesia-General Post-Op ---
MAC Patient Condition Mental Status/LOC: Same as Preop Cardiovascular: Satisfactory Nausea/Vomiting: Absent Respiratory: Satisfactory Pain: Controlled Complications: Absent Post Op Complications Complications None Follow Up Care/Instructions Patient Instructions None needed. Anesthesiology Discharge Order Discharge Order Patient is doing well, no complaints, stable vital signs, no apparent adverse anesthesia problems. No complications reported per nursing. LINDA HECK CRNA Jan 23, 2022 15:55
[2022-01-23 16:05] VITALS: BP 194/120
[2022-01-23 16:50] VITALS: BP 194/120
--- NOTE | 2022-01-23 23:41 | OPERATIVE REPORT ---
DATE OF SERVICE: 01/23/2022 PREOPERATIVE DIAGNOSIS: Rectal bleeding. POSTOPERATIVE DIAGNOSIS: Proctitis or nonuse proctitis. PROCEDURE: Flexible sigmoidoscopy with cold biopsies. SURGEON: Monty Harden DO ANESTHESIA: Per FIRST BEATER. ESTIMATED BLOOD LOSS: Scant. COMPLICATIONS: None. SPECIMENS: Rectal cold biopsies. INDICATIONS: The patient is a 36-year-old male, who has been having some painless rectal bleeding. He understands risks and benefits of procedure and wishes to proceed. Consent was signed in the chart. DESCRIPTION OF PROCEDURE: The patient was taken to the endoscopy suite, placed in left lateral recumbent position. Timeout was performed. Digital rectal exam was performed demonstrating hard petros like stool within the rectal vault. This was continued to be evacuated by digital rectal exam. Scope was inserted in the rectum and irrigation and suction was used to continue to help evacuate the stool load. This was able to be evacuated. Scope was continued to be inserted into the rectum until it advanced all the way to the end of the stump. The scope was then slowly retracted back. No polyps or masses present within the rectal stump. There were significant erythematous changes appeared to be proctitis or nonuse colitis. Couple cold biopsies were obtained. Scope was then slowly retracted back to completely remove, noting no other pathology. The patient tolerated procedure well without any complications, taken to recovery room in stable condition. RECOMMENDATIONS: The patient will follow up on biopsies. We will await biopsy results and then further recommendations pending results. Job ID: [id number] DocumentID: [id number] Dictated Date: 01/23/2022 15:41:03 Port Cdl A Driver Date: 01/23/2022 23:40:38 Dictated By: MONTY HARDEN DO
== END 2022-01-23 16:49 ==
LOC: ENDO 12:12
PROVIDERS: ATTEND Surgery
DX: K62.89 Other specified diseases of anus and rectum (principal); Z87.891 Personal history of nicotine dependence; Z90.49 Acquired absence of other specified parts of digestive tract; Z93.2 Ileostomy status; E66.01 Morbid (severe) obesity due to excess calories; Z68.42 Body mass index [BMI] 45.0-49.9, adult; Z91.040 Latex allergy status
CPT/HCPCS: 82947

== ENCOUNTER → 2022-01-29 | Outpatient (CLI) | payer MEDICARE, MEDICAID ==
--- NOTE | 2022-01-29 14:16 | Diagnostic Imaging Report ---
PROCEDURE: CT head without contrast. TECHNIQUE: Multiple contiguous axial images were obtained through the brain without the use of intravenous contrast. Auto Exposure Controls were utilized during the CT exam to meet ALARA standards for radiation dose reduction. INDICATION: Indwelling JAVA SUPPORT ENGINEER shunt. Pain at shunt site. COMPARISON: None. FINDINGS: Indwelling JAVA SUPPORT ENGINEER shunt catheter is identified entering via a right frontal approach and terminating near the interventricular septum. Ventricles and cortical sulci are within normal limits. There is no evidence of obstructive hydrocephalus. There is no mass effect or midline shift. Foramen magnum is moderately enlarged. This is presumed secondary to previous suboccipital craniectomy for Chiari I malformation. There is inferior displacement of the tonsils of the cerebellum. There is no prior available for comparison. No intra or extra-axial intracranial hemorrhage is seen. There is no loss of normal alas-white matter junction differentiation to suggest evolving acute territorial infarct. IMPRESSION: 1. No acute intracranial abnormality is seen. There is no CT evidence of acute infarct, mass, nor hemorrhage. 2. Postoperative changes as described above. Dictated by: Dictated on workstation # [id number]
== END ==
LOC: RAD 12:08
PROVIDERS: ATTEND Family Medicine
DX: R51.9 Headache, unspecified (principal); Z98.2 Presence of cerebrospinal fluid drainage device
CPT/HCPCS: 70450

== ENCOUNTER 2022-02-03 23:04 | Emergency (ER) | payer MEDICARE, MEDICAID ==
[~2022-02-03] VITALS: Ht 163 cm; Wt 127.0 kg
[2022-02-03] MEDS ORDERED: hydrALAZINE (APESOLINE) 20 MG/ML VIAL IV ONE (23:15)
--- NOTE | 2022-02-03 23:24 | ED General ---
General Stated Complaint: HIGH BLOOD PRESSURE,RT SIDE OF HEAD SWELLING Source of Information: Patient Exam Limitations: No Limitations History of Present Illness Date Seen by Provider: Feb 03, 2022 Time Seen by Provider: 23:05 Initial Comments 36-year-old male presents the emergency department today for headache, hypertension. He has a history of spina bifida and has a CSF shunt. He feels symptoms of swelling in the right side of his head near the bladder for the shunt. No blurred or double vision. No upper extremity weakness numbness or tingling. He does have chronic bilateral lower extremity weakness and is paralyzed below the waist secondary to spina bifida. He is chronically wheelchair-bound. Denies any fevers or chills. His headache is diffuse throbbing no obvious aggravating or alleviating factors. He has nausea without vomiting. Found to be hypertensive at the nursing facility in the 200s systolic range. Allergies and Home Medications Allergies Coded Allergies: latex (Verified Allergy, Unknown, 09/06/18) Patient Home Medication List Home Medication List Reviewed: Yes Acetaminophen (Tylenol Extra Strength) 500 Mg Tablet, 500 MG PO HS, (Reported) Entered as Reported by: ESTEBAN WHITING on 05/13/18 0935 Acetaminophen (Tylenol Extra Strength) 500 Mg Tablet, 1,000 MG PO Q8H PRN for PAIN-MILD, (Reported) Entered as Reported by: ESTEBAN WHITING on 09/07/18 1210 Allopurinol (Allopurinol) 100 Mg Tablet, 100 MG PO DAILY, (Reported) Entered as Reported by: ESTEBAN WHITING on 05/13/18 09 Cetirizine HCl (Zyrtec) 10 Mg Tablet, 10 MG PO DAILY PRN for ALLERGIES, (Reported) Entered as Reported by: ESTEBAN WHITING on 05/13/18 0935 Diclofenac Sodium (Voltaren) 100 Gm Gel..gram., 4 GM TP Q4H PRN for BACK/SHOULDER PAIN, (Reported) Entered as Reported by: ESTEBAN WHITING on 05/13/18 09 Diphenhydramine HCl (Benadryl) 25 Mg Capsule, 25 MG PO HS, (Reported) Entered as Reported by: JOSE A ANNE on 01/15/21 0918 Duloxetine HCl (Cymbalta) 30 Mg Capsule.dr, 90 MG PO DAILY, (Reported) Entered as Reported by: ESTEBAN WHITING on 05/13/18 09 Fluticasone Propionate (Fluticasone Propionate) 16 Gm Belle.susp, 1 SPRAY NS HS, (Reported) Entered as Reported by: ESTEBAN WHITING on 05/13/18 09 Gabapentin (Gabapentin) 600 Mg Tablet, 600 MG PO TID, (Reported) Entered as Reported by: JOSE A ANNE on 01/15/21917 Hydrocodone Bit/Acetaminophen (Lortab 5 Mg Tablet) 1 Each Tablet, 1-2 TAB PO Q6H PRN for PAIN-MODERATE, (Reported) Entered as Reported by: ESTEBAN WHITING on 05/13/18 09 Hydrocortisone (Hydrocortisone) 28.35 Gm Cream..g., TP BID, (Reported) Entered as Reported by: ESTEBAN WHITING on 09/07/18 120 L. Acidophilus/L.bulgaricus (Lactobacillus Tablet) 1 Each Tablet, 1 TAB PO BID, (Reported) Entered as Reported by: ESTEBAN WHITING on 05/13/18934 Levetiracetam (Keppra) 500 Mg Tablet, 1,500 MG PO BID, (Reported) Entered as Reported by: ESTEBAN WHITING on 05/13/18 09 Menthol (Biofreeze) 118 Ml Gel..ml., TP Q4H PRN for MUSCLE PAIN, (Reported) Entered as Reported by: ETSEBAN WHITING on 09/07/18 1210 Metoclopramide HCl (Reglan) 10 Mg Tablet, 5 MG PO BID PRN Prescribed by: MIRIAM SIERRA on 09/09/18 1012 Metoprolol Tartrate (Metoprolol Tartrate) 25 Mg Tablet, 12.5 MG PO BID, (Reported) Entered as Reported by: ESTEBAN WHITING on 05/13/18 09 Multivitamin (Daily Value) 1 Each Tablet, 1 TAB PO DAILY, (Reported) Entered as Reported by: ESTEBAN WHITING on 09/07/18 1209 Ondansetron HCl (Zofran) 4 Mg Tab, 4 MG PO Q8H PRN for NAUSEA/VOMITING-1ST LINE, (Reported) Entered as Reported by: ESTEBAN WHITING on 09/07/18 1217 Pantoprazole Sodium (Protonix) 40 Mg Tablet.dr, 40 MG PO DAILY, (Reported) Entered as Reported by: ESTEBAN WHITING on 05/13/18 0935 Review of Systems Review of Systems Constitutional: no symptoms reported EENTM: no symptoms reported Respiratory: no symptoms reported Cardiovascular: no symptoms reported Gastrointestinal: nausea Genitourinary: no symptoms reported Musculoskeletal: no symptoms reported Skin: no symptoms reported Psychiatric/Neurological: Headache Hematologic/Lymphatic: No Symptoms Reported Immunological/Allergic: no symptoms reported Past Cyshlrl-Sshhjh-Ionnue Hx Patient Social History Tobacco Use?: No Use of E-Cig and/or Vaping dev: No Substance use?: No Alcohol Use?: No Immunizations Up To Date Tetanus Booster (TDap): Unknown PED Vaccines UTD: Yes First/Initial COVID19 Vaccinat: 05/31/2020 Second COVID19 Vaccination Dieudonne: 06/20/2020 Third COVID19 Vaccination Date: N/A Seasonal Allergies Seasonal Allergies: Yes Past Medical History Surgeries: Yes Abdominal, Bladder Surgery, Brain Shunt, Neurological Respiratory: Yes Asthma Cardiac: Yes Hypertension Neurological: Yes (SPINA BIFIDA--NON-AMBULATORY; HYDRCEPHALUS WITH GLUE SPREADING MACHINE OPERATOR SHUNT) Genitourinary: Yes (SUPRAPUBIC CATHETER; RENAL FAILURE WITH BOWEL PERFORATION) Renal Failure, Neurogenic Bladder Gastrointestinal: Yes (COLOSTOMY FOR BOWEL PERFORATION; MULTIPLE ABDOMINAL SURGERIES) Abdominal Hernia Musculoskeletal: Yes (SPINA BIFIDA; CHRONIC RIGHT HIP DISLOCATION NOTED ON CT; ) Endocrine: Yes (MORBID OBESITY) Diabetes, Non-Insulin dep HEENT: No Cancer: No Psychosocial: Yes Depression Integumentary: No Blood Disorders: No Family Medical History Patient reports no known family medical history. No Pertinent Family Hx, Other Conditions/Hx Physical Exam Vital Signs Vital Signs - First Documented 02/03/22 23:04 Temp 37.0 Pulse 78 Resp 18 B/P (MAP) 209/122 (151) Pulse Ox 97 O2 Delivery Room Air Capillary Refill : Height, Weight, BMI Height: 5'4.00" Weight: 278lbs. 11.2oz. 126.100373bi; 46.48 BMI Method:Stated General Appearance: No Apparent Distress, WD/WN HEENT: PERRL/EOMI, TMs Normal, Normal ENT Inspection, Pharynx Normal Neck: Full Range of Motion, Normal Inspection, Non Tender, Supple Respiratory: Chest Non Tender, Lungs Clear, Normal Breath Sounds, No Accessory Muscle Use, No Respiratory Distress Cardiovascular: Regular Rate, Rhythm, No Edema, No Gallop, No JVD, No Murmur, Normal Peripheral Pulses, Other (Hypertension) Gastrointestinal: Normal Bowel Sounds, No Organomegaly, Soft, Other (Colostomy right lower abdomen) Extremity: Normal Capillary Refill, Other (Normal strength bilateral upper extremities. Cachexia bilateral lower extremities.) Neurologic/Psychiatric: Alert, Oriented x3, No Motor/Sensory Deficits, Normal Mood/Affect, Other (Patient has chronic scarring to the right lateral scalp, skull.) Skin: Normal Color, Warm/Dry Lymphatic: No Adenopathy Progress/Results/Core Measures Suspected Sepsis SIRS Temperature: Pulse: Respiratory Rate: Laboratory Tests 02/03/22 23:32: White Blood Count 7.8 Blood Pressure / Mean: Laboratory Tests 02/03/22 23:18: Creatinine 0.74, Total Bilirubin 0.2 02/03/22 23:32: Platelet Count 239 Results/Orders Lab Results Laboratory Tests Test 02/03/22 23:18 02/03/22 23:32 Range/Units Sodium Level 138 135-145 MMOL/L Potassium Level 4.3 3.6-5.0 MMOL/L Chloride Level 100 98-107 MMOL/L Carbon Dioxide Level 22 21-32 MMOL/L Anion Gap 16 H 5-14 MMOL/L Blood Urea Nitrogen 8 7-18 MG/DL Creatinine 0.74 0.60-1.30 MG/DL Estimat Glomerular Filtration Rate 122 BUN/Creatinine Ratio 11 Glucose Level 108 H 70-105 MG/DL Calcium Level 8.9 8.5-10.1 MG/DL Corrected Calcium 9.3 8.5-10.1 MG/DL Total Bilirubin 0.2 0.1-1.0 MG/DL Aspartate Amino Transf (AST/SGOT) 27 5-34 U/L Alanine Aminotransferase (ALT/SGPT) 32 0-55 U/L Alkaline Phosphatase 80 40-136 U/L Total Protein 6.6 6.4-8.2 GM/DL Albumin 3.5 3.2-4.5 GM/DL White Blood Count 7.8 4.3-11.0 10^3/uL Red Blood Count 4.90 4.30-5.52 10^6/uL Hemoglobin 13.2 L 13.3-17.7 g/dL Hematocrit 40 40-54 % Mean Corpuscular Volume 81 80-99 fL Mean Corpuscular Hemoglobin 27 25-34 pg Mean Corpuscular Hemoglobin Concent 33 32-36 g/dL Red Cell Distribution Width 13.5 10.0-14.5 % Platelet Count 239 130-400 10^3/uL Mean Platelet Volume 8.4 L 9.0-12.2 fL Immature Granulocyte % (Auto) 1 % Neutrophils (%) (Auto) 69 42-75 % Lymphocytes (%) (Auto) 22 12-44 % Monocytes (%) (Auto) 6 0-12 % Eosinophils (%) (Auto) 2 0-10 % Basophils (%) (Auto) 0 0-10 % Neutrophils # (Auto) 5.4 1.8-7.8 10^3/uL Lymphocytes # (Auto) 1.8 1.0-4.0 10^3/uL Monocytes # (Auto) 0.5 0.0-1.0 10^3/uL Eosinophils # (Auto) 0.2 0.0-0.3 10^3/uL Basophils # (Auto) 0.0 0.0-0.1 10^3/uL Immature Granulocyte # (Auto) 0.0 0.0-0.1 10^3/uL My Orders Orders - ARIA MIRAMONTES DO Cbc With Automated Diff (02/03/22 23:12) Comprehensive Metabolic Panel (02/03/22 23:12) Hydralazine Injection (Apresoline Inject (02/03/22 23:15) Ct Chest/Abdomen/Pelvis Wo (02/03/22 23:30) Ct Head/Neck Wo (02/03/22 23:13) Clonidine Tablet (Catapres Tablet) (02/04/22 00:00) Ns (Ivpb) (Sodium C... W/Nicardipine Iv (02/04/22 01:15) Medications Given in ED Current Medications Medications Dose Ordered Sig/Sridevi Route Start Time Stop Time Status Last Admin Dose Admin Clonidine HCl 0.4 mg ONCE ONCE PO 02/04/22 00:00 02/04/22 00:01 DC 02/04/22 00:04 0.4 MG Hydralazine HCl 10 mg ONCE ONCE IV 02/03/22 23:15 02/03/22 23:16 DC 02/03/22 23:23 10 MG Vital Signs/I&O 02/03/22 02/04/22 02/04/22 02/04/22 23:04 01:16 01:40 02:53 Temp 37.0 Pulse 78 93 85 81 Resp 18 20 B/P (MAP) 209/122 (151) 189/119 118/85 118/81 Pulse Ox 97 99 O2 Delivery Room Air Capillary Refill : Critical Care Note Critical Care Start Time: 22:05 Stop Time: 01:18 Departure Communication (Admissions) Time/Spoke to Consulting Phy: 01:00 Dr Ching, [facility], accepts admission to ICU. Pending transport. Pt is stable but BP remains high despite hydralazine and clonidine. Started on cardene. No neurologic deficit. Shunt intact with no obvious hydrocephalus. Spoke to SALLY, Dr ching at [facility] who accepts admission to their ICU. Impression Primary Impression: Headache Qualified Codes: R51.9 - Headache, unspecified Additional Impressions: HTN (hypertension) Qualified Codes: I10 - Essential (primary) hypertension GLUE SPREADING MACHINE OPERATOR (ventriculoperitoneal) shunt status Disposition: XFER SHT-TRM HOSP Condition: Stable Transfer Transfer Reason: Exceeds level of care Time Spoke to Accepting Phy: 01:10 Transfer Progress Notes Spoke to Dr Ching (neurosurgeon) accepts patient in transfer. Pending ICU bed assignment. Departure-Patient Inst. Referrals: MIRIAM SIERRA MD (PCP/Family) Primary Care Physician ARIA MIRAMONTES DO Feb 03, 2022 23:23
[2022-02-03 23:36] LABS: ALBUMIN 3.5 GM/DL (3.2-4.5)
[2022-02-03 23:37] LABS: POTASSIUM 4.3 MMOL/L (3.6-5.0)
[2022-02-03 23:38] LABS: CALCIUM 8.9 MG/DL (8.5-10.1)
[2022-02-03 23:39] LABS: TOTAL PROTEIN 6.6 GM/DL (6.4-8.2)
[2022-02-03 23:41] LABS: BILIRUBIN,TOTAL 0.2 MG/DL (0.1-1.0)
[2022-02-03 23:42] LABS: CREATININE SERUM 0.74 MG/DL (0.60-1.30)
[2022-02-03 23:43] LABS: BASOPHILS % (AUTO) 0 % (0-10); EOSINOPHILS # (AUTO) 0.2 10^3/uL (0.0-0.3); EOSINOPHILS % (AUTO) 2 % (0-10); HEMATOCRIT 40 % (40-54); HEMOGLOBIN 13.2 g/dL (13.3-17.7); LYMPHOCYTES # (AUTO) 1.8 10^3/uL (1.0-4.0); LYMPHOCYTES % (AUTO) 22 % (12-44); MEAN CORPUSCULAR HEMOGLOBIN 27 pg (25-34); MEAN CORPUSCULAR HGB CONC 33 g/dL (32-36); MEAN CORPUSCULAR VOLUME 81 fL (80-99); MEAN PLATELET VOLUME 8.4 fL (9.0-12.2); MONOCYTES # (AUTO) 0.5 10^3/uL (0.0-1.0); MONOCYTES % (AUTO) 6 % (0-12); NEUTROPHILS # (AUTO) 5.4 10^3/uL (1.8-7.8); NEUTROPHILS % (AUTO) 69 % (42-75); PLATELET COUNT 239 10^3/uL (130-400); WHITE BLOOD COUNT 7.8 10^3/uL (4.3-11.0)
[2022-02-04] MEDS ORDERED: cloNIDine 0.2 MG (CATAPRES) TAB PO ONE
[2022-02-04] MEDS ORDERED: niCARdipine IV (Pyxis drip kit 50 MG in NS (IVPB) 230 ML IV SCH (01:15)
[2022-02-04 02:53] VITALS: BP 118/81
--- NOTE | 2022-02-04 07:20 | Diagnostic Imaging Report ---
PROCEDURE: CT head and neck without contrast. TECHNIQUE: Contiguous axial images were obtained from the skull base through the vertex. Noncontrast axial images were then obtained of the soft tissue of the neck. Auto Exposure Controls were utilized during the CT exam to meet ALARA standards for radiation dose reduction. INDICATION: Headache and hypertension There are postsurgical changes from occipital craniotomy. There is a ventricular shunt entering the right frontal horn. Ventricles are nondilated. There are no extra-axial fluid collections. There are no masses or hemorrhages. There is an area of encephalomalacia in the left posterior parietal lobe. IMPRESSION: No acute abnormality seen in the head. I agree with preliminary interpretation. Dictated by: Dictated on workstation # [id number]
--- NOTE | 2022-02-04 07:23 | Diagnostic Imaging Report ---
PROCEDURE: CT chest, abdomen, and pelvis without contrast. TECHNIQUE: Multiple contiguous axial images were obtained through the chest, abdomen, and pelvis without the use of intravenous contrast. Auto Exposure Controls were utilized during the CT exam to meet ALARA standards for radiation dose reduction. INDICATION: Headache, hypotension, abdominal pain CT CHEST: Lungs are clear. There are no effusions or pneumothoraces. There is no hilar or mediastinal lymphadenopathy. Aorta is normal. IMPRESSION: Unremarkable chest CT abdomen pelvis: Liver appears normal. Gallbladder is normal. Spleen is mildly enlarged measuring 15.6 cm. Adrenals are normal. Renal cortex is multi lobulated. Aorta and IVC are unremarkable. There is a Goncalves catheter in urinary bladder. There is a large ventral hernia within a pannus in the lower abdomen containing multiple loops of colon and small bowel. There is no evidence of obstruction. IMPRESSION: Splenomegaly. Large paracentral ventral hernia containing small bowel loops without evidence of obstruction. Patient has a colostomy in the right lower quadrant. No acute abnormality seen. I agree with preliminary interpretation. Dictated by: Dictated on workstation # [id number]
== END 2022-02-04 03:02 | disposition short-term general hospital (02) ==
LOC: EDUNIT# 23:11 → ER 23:12
DX: I10 Essential (primary) hypertension (principal); E66.01 Morbid (severe) obesity due to excess calories; Z98.2 Presence of cerebrospinal fluid drainage device; Z68.42 Body mass index [BMI] 45.0-49.9, adult; Z91.040 Latex allergy status
CPT/HCPCS: 36415; 70450; 70490; 71250; 74176; 80053; 85025

== ENCOUNTER 2022-02-09 22:58 | Emergency (ER) | payer MEDICARE, MEDICAID ==
[~2022-02-09] VITALS: Ht 163 cm; Wt 127.0 kg
--- NOTE | 2022-02-09 23:02 | ED GU-Male ---
General Chief Complaint: Catheter/Drain/Tube Problems Stated Complaint: CATHETER REPLACEMENT Source: patient, [facility] records History of Present Illness Date Seen by Provider: Feb 09, 2022 Time Seen by Provider: 22:59 Initial Comments PT ARRIVES VIA EMS FROM [facility] PT HAS CHRONIC INDWELLING SUPRAPUBIC CATHETER, AND NURSING STAFF WERE DOING RO UTINE MONTHLY REPLACEMENT OF CATHETER TONIGHT, AND WERE UNABLE TO REPLACE IT X 2 ATTEMPTS, SO CALLED EMS. PT WITH SPINA BIFIDA, AND HAS CHRONIC INDWELLING SUPRAPUBIC CATHETER, AND PERMANENT COLOSTOMY PCP: DR. SIERRA Allergies and Home Medications Allergies Coded Allergies: latex (Verified Allergy, Unknown, 09/06/18) Patient Home Medication List Home Medication List Reviewed: Yes Acetaminophen (Tylenol Extra Strength) 500 Mg Tablet, 500 MG PO HS, (Reported) Entered as Reported by: ESTEBAN WHITING on 05/13/18 09 Acetaminophen (Tylenol Extra Strength) 500 Mg Tablet, 1,000 MG PO Q8H PRN for PAIN-MILD, (Reported) Entered as Reported by: ESTEBAN WHITING on 09/07/18 1210 Allopurinol (Allopurinol) 100 Mg Tablet, 100 MG PO DAILY, (Reported) Entered as Reported by: ESTEBAN WHITING on 05/13/18934 Cetirizine HCl (Zyrtec) 10 Mg Tablet, 10 MG PO DAILY PRN for ALLERGIES, (Reported) Entered as Reported by: ESTEBAN WHITING on 05/13/18934 Diclofenac Sodium (Voltaren) 100 Gm Gel..gram., 4 GM TP Q4H PRN for BACK/SHOULDER PAIN, (Reported) Entered as Reported by: ESTEBAN WHITING on 05/13/18934 Diphenhydramine HCl (Benadryl) 25 Mg Capsule, 25 MG PO HS, (Reported) Entered as Reported by: JOSE A ANNE on 01/15/21917 Duloxetine HCl (Cymbalta) 30 Mg Capsule.dr, 90 MG PO DAILY, (Reported) Entered as Reported by: ESTEBAN WHITING on 05/13/18 09 Fluticasone Propionate (Fluticasone Propionate) 16 Gm Mcdaniels.susp, 1 SPRAY NS HS, (Reported) Entered as Reported by: ESTEBAN WHITING on 05/13/18 09 Gabapentin (Gabapentin) 600 Mg Tablet, 600 MG PO TID, (Reported) Entered as Reported by: JOSE A ANNE on 01/15/21 0918 Hydrocodone Bit/Acetaminophen (Lortab 5 Mg Tablet) 1 Each Tablet, 1-2 TAB PO Q6H PRN for PAIN-MODERATE, (Reported) Entered as Reported by: ESTEBAN WHITING on 05/13/18 09 Hydrocortisone (Hydrocortisone) 28.35 Gm Cream..g., TP BID, (Reported) Entered as Reported by: ESTEBAN WHITING on 09/07/18 1209 L. Acidophilus/L.bulgaricus (Lactobacillus Tablet) 1 Each Tablet, 1 TAB PO BID, (Reported) Entered as Reported by: ESTEBAN WHITING on 05/13/18 09 Levetiracetam (Keppra) 500 Mg Tablet, 1,500 MG PO BID, (Reported) Entered as Reported by: ESTEBAN WHITING on 05/13/18 09 Menthol (Biofreeze) 118 Ml Gel..ml., TP Q4H PRN for MUSCLE PAIN, (Reported) Entered as Reported by: ESTEBAN WHITING on 09/07/18 1210 Metoclopramide HCl (Reglan) 10 Mg Tablet, 5 MG PO BID PRN Prescribed by: MIRIAM SIERRA on 09/09/18 1012 Metoprolol Tartrate (Metoprolol Tartrate) 25 Mg Tablet, 12.5 MG PO BID, (Reported) Entered as Reported by: ESTEBAN WHITING on 05/13/18 09 Multivitamin (Daily Value) 1 Each Tablet, 1 TAB PO DAILY, (Reported) Entered as Reported by: ESTEBAN WHITING on 09/07/18 1209 Ondansetron HCl (Zofran) 4 Mg Tab, 4 MG PO Q8H PRN for NAUSEA/VOMITING-1ST LINE, (Reported) Entered as Reported by: ESTEBAN WHITING on 09/07/18 1217 Pantoprazole Sodium (Protonix) 40 Mg Tablet.dr, 40 MG PO DAILY, (Reported) Entered as Reported by: ESTEBAN WHITING on 05/13/18 09 Review of Systems Review of Systems Constitutional: no symptoms reported Genitourinary: see HPI Past [facility] Hx Immunizations Up To Date Tetanus Booster (TDap): Unknown PED Vaccines UTD: Yes First/Initial COVID19 Vaccinat: 05/31/2020 Second COVID19 Vaccination Dieudonne: 06/20/2020 Third COVID19 Vaccination Date: N/A Seasonal Allergies Seasonal Allergies: Yes Past Medical History Surgery/Hospitalization HX: [employer] SHUNT, COLOSTOMY, SUPRAPUBIC CATHETER, MULTIPLE ABDOMINAL SX. SPINABIFIDA, GOUT, HTN, SEIZURES, HRN, NEUROGENIC BLADDER, NIDDM, NON-AMBULATORY, DEPRESSION. Surgeries: Yes Abdominal, Bladder Surgery, Brain Shunt, Neurological Respiratory: Yes Asthma Cardiac: Yes Hypertension Neurological: Yes (SPINA BIFIDA--NON-AMBULATORY; HYDRCEPHALUS WITH [employer] TECHN[employer]IAN SHUNT) Genitourinary: Yes (SUPRAPUBIC CATHETER; RENAL FAILURE WITH BOWEL PERFORATION) Renal Failure, Neurogenic Bladder Gastrointestinal: Yes (COLOSTOMY FOR BOWEL PERFORATION; MULTIPLE ABDOMINAL SURGERIES) Abdominal Hernia Musculoskeletal: Yes (SPINA BIFIDA; CHRONIC RIGHT HIP DISLOCATION NOTED ON CT; ) Endocrine: Yes (MORBID OBESITY) Diabetes, Non-Insulin dep HEENT: No Cancer: No Psychosocial: Yes Depression Integumentary: No Blood Disorders: No Family Medical History Patient reports no known family medical history. No Pertinent Family Hx, Other Conditions/Hx Physical Exam Vital Signs Vital Signs - First Documented 02/09/22 23:00 Temp 35.6 Pulse 81 Resp 16 B/P (MAP) 202/126 (151) Pulse Ox 98 O2 Delivery Room Air Capillary Refill : Height, Weight, BMI Height: 5'4.00" Weight: 278lbs. 11.2oz. [id number]; 47.00 BMI Method:Stated General Appearance: WD/WN, no apparent distress, obese Gastrointestinal: non tender, soft, other (COLOSTOMY IN RIGHT MID ABDOMEN; SUPRAPUBIC SITE WITH MODERATE AMOUNT OF BLEEDING FROM THE SITE. ) Neurologic/Psychiatric: alert, normal mood/affect Skin: normal color, warm/dry Procedures/Interventions Progress SUPRAPUBIC CATHETER REPLACED, WITH #16 LATEX-FREE DAVID, WITH SOME DIFFICULTY Progress/Results/Core Measures Suspected Sepsis SIRS Temperature: Pulse: Respiratory Rate: Blood Pressure / Mean: Results/Orders My Orders Orders - KARUNA ALCOCER DO Lidocaine 2% (Urojet) (Xylocaine Urojet) (02/09/22 23:15) Medications Given in ED Current Medications Medications Dose Ordered Sig/Sridevi Route Start Time Stop Time Status Last Admin Dose Admin Lidocaine HCl 10 ml ONCE ONCE TOP 02/09/22 23:15 02/09/22 23:17 DC 02/09/22 23:14 10 ML Vital Signs/I&O 02/09/22 23:00 Temp 35.6 Pulse 81 Resp 16 B/P (MAP) 202/126 (151) Pulse Ox 98 O2 Delivery Room Air Capillary Refill : Departure Impression Primary Impression: SUPRAPUBIC CATHETER REPLACEMENT Disposition: 03 XFER SNF Condition: Stable Departure-Patient Inst. Decision time for Depature: 23:33 Referrals: MIRIAM SIERRA MD (PCP/Family) Primary Care Physician Patient Instructions: How to Care for Your Suprapubic Urinary Catheter Add. Discharge Instructions: CONTINUE ALL YOUR REGULAR ORDERS FOLLOW UP WITH YOUR DR NEEDED RETURN TO ER IF PROBLEMS All discharge instructions reviewed with patient and/or family. Voiced understanding. KARUNA ALCOCER DO Feb 09, 2022 23:02
[2022-02-09] MEDS ORDERED: LIDOCAINE UROJET 2% GEL 10 ML PKG TOP ONE (23:15)
[2022-02-10 00:25] VITALS: BP 181/115
== END 2022-02-10 00:49 ==
LOC: EDUNIT# 22:58 → ER 23:00
DX: Z44.8 Encounter for fitting and adjustment of other external prosthetic devices (principal); E66.01 Morbid (severe) obesity due to excess calories; Z68.42 Body mass index [BMI] 45.0-49.9, adult
CPT/HCPCS: 51702

== ENCOUNTER 2022-06-14 14:14 | Inpatient (IN) | payer MEDICARE, MEDICAID ==
[~2022-06-14] VITALS: Ht 157 cm; Wt 136.3 kg
[~2022-06-14 14:14] MED LIST changes: -FLUT16SP22 NS; +FLUT16SP22 NSEACH
[2022-06-14] MEDS ORDERED: CEFEPIME INJECTION 1,000 MG in NS (IVPB) 50 ML IV ONE (14:30)
--- NOTE | 2022-06-14 14:41 | ED General ---
General Stated Complaint: WEAKNESS Source of Information: Patient (POOR HISTORIAN), Custodial Records, Old Records History of Present Illness Date Seen by Provider: Jun 14, 2022 Time Seen by Provider: 14:18 Initial Comments PT AR[facility] VIA [facility] PT HAS SPINA BIFIDA WITH PARAPLEGIA, HE HAS A PERMANENT ILEOSTOMY/COLOSTOMY AND SUPRAPUBIC CATHETER. HE WAS ADMITTED TO 06/11-06/12/22 FOR SUPRAPUBIC CATH REPLACEMENT. PT HAS HAD PROGRESSIVE GENERALIZED WEAKNESS SINCE HE WAS AT PT HAS A TEMP OF 100.5 TODAY SLIGHT COUGH WAS REPORTED O2 SATS 85% ON ROOM AIR AT ASSISTED. O2 SATS UP TO 96% ON O2 AT 2L/NC PT IS UNABLE TO PROVIDE OR VOLUNTEER ANY INFORMATION. ALL HISTORY IS FROM ASSISTED REPORT, AND EMS REPORT PCP: DR. SIERRA Allergies and Home Medications Allergies Coded Allergies: latex (Verified Allergy, Unknown, 09/06/18) Patient Home Medication List Home Medication List Reviewed: Yes Acetaminophen (Tylenol Extra Strength) 500 Mg Tablet, 500 MG PO HS, (Reported) Entered as Reported by: ESTEBAN WHITING on 05/13/18934 Last Action: Reviewed Acetaminophen (Tylenol Extra Strength) 500 Mg Tablet, 1,000 MG PO Q8H PRN for PAIN-MILD (1-4), (Reported) Entered as Reported by: BENI CRAFT on 06/15/221122 Last Action: Reviewed Allopurinol (Allopurinol) 100 Mg Tablet, 100 MG PO DAILY, (Reported) Entered as Reported by: ESTEBAN WHITING on 05/13/18934 Last Action: Reviewed Alprazolam (Alprazolam) 0.5 Mg Tablet, 0.5 MG PO TID PRN for ANXIETY, (Reported) Entered as Reported by: BENI CRAFT on 06/15/221122 Last Action: Reviewed Amitriptyline HCl (Amitriptyline HCl) 10 Mg Tablet, 5 MG PO 0600,1800, (Reported) Entered as Reported by: BENI CRAFT on 06/15/221122 Last Action: Reviewed Cetirizine HCl (Zyrtec) 10 Mg Tablet, 10 MG PO DAILY PRN for ALLERGY SYMPTOMS, (Reported) Entered as Reported by: ESTEBAN WHITING on 05/13/18934 Last Action: Reviewed D-Methorphan/Acetamin/Doxylamn (Vicks Nyquil Liquicaps) 15 Mg-325 Mg-6.25 Mg Capsule, 1 EACH PO HS PRN for SINUS CONGESTION, (Reported) Entered as Reported by: BENI CRAFT on 06/15/221122 Last Action: Reviewed Diclofenac Sodium (Diclofenac Sodium) 1 % Gel..gram., 2 GM TP 1000,1400,2000, (Reported) Entered as Reported by: BENI CRAFT on 06/15/221122 Last Action: Reviewed Diclofenac Sodium (Diclofenac Sodium) 1 % Gel..gram., 4 GM TP Q4H PRN for PAIN- BREAKTHROUGH, (Reported) Entered as Reported by: BENI CRAFT on 06/15/221122 Last Action: Reviewed Dm/PE/Acetaminophen/Doxylamine (Vicks Dayquil-Nyquil Cold-Flu) 10-5-325MG Cap.seq, 1 EACH PO EVERY 20 HOURS, (Reported) Entered as Reported by: BENI CRAFT on 06/15/221122 Last Action: Reviewed Duloxetine HCl (Cymbalta) 30 Mg Capsule.dr, 30 MG PO DAILY, (Reported) Entered as Reported by: ESTEBAN WHITING on 05/13/18934 Last Action: Reviewed Ferrous Sulfate (Ferrous Sulfate) 325 Mg (65 Mg Iron) Tablet, 325 MG PO BID, (Reported) Entered as Reported by: BENI CRAFT on 06/15/221122 Last Action: Reviewed Fluticasone Propionate (Fluticasone Propionate) 50 Mcg/Actuation [place].susp, 1 SPRAY NSEACH Q12H PRN for ALLERGY SYMPTOMS, (Reported) Entered as Reported by: ESTEBAN WHITING on 05/13/18934 Last Action: Reviewed Gabapentin (Gabapentin) 800 Mg Tablet, 800 MG PO 0600,1000,1400, (Reported) Entered as Reported by: BENI CRAFT on 06/15/221122 Last Action: Reviewed Hydralazine HCl (Hydralazine HCl) 25 Mg Tablet, 25 MG PO TID, (Reported) Entered as Reported by: BENI CRAFT on 06/15/221122 Last Action: Reviewed Hydrocodone/Acetaminophen (Hydrocodone-Acetamin 5-325 mg) 5 Mg-325 Mg Tablet, 1 EA PO 1700, (Reported) Entered as Reported by: BENI CRAFT on 06/15/221122 Last Action: Reviewed Hydrocodone/Acetaminophen (Hydrocodone-Acetamin 5-325 mg) 5 Mg-325 Mg Tablet, 1- 2 EA PO Q6H PRN for PAIN-MODERATE (5-7), (Reported) Entered as Reported by: BENI CRAFT on 06/15/221122 Last Action: Reviewed Hydrocortisone (Hydrocortisone) 1 % Cream..g., 1 APPLIC TP DAILY PRN for ITCHING, (Reported) Entered as Reported by: BENI CRAFT on 06/15/221122 Last Action: Reviewed L. Acidophilus/L.bulgaricus (Lactobacillus Tablet) 1 Million Cell Tablet, 1 TAB PO 0600,1400, (Reported) Entered as Reported by: ESTEBAN WHITING on 05/13/18934 Last Action: Reviewed Levetiracetam (Keppra) 500 Mg Tablet, 1,500 MG PO BID, (Reported) Entered as Reported by: ESTEBAN WHITING on 05/13/18934 Last Action: Reviewed Lidocaine/Menthol (Lidocaine-Menthol 4%-1% Gel) 4 %-1 % Gel..gram., 1 APPLIC TP 0600,1000,1400, (Reported) Entered as Reported by: BENI CRAFT on 06/15/221122 Last Action: Reviewed Losartan Potassium (Losartan Potassium) 100 Mg Tablet, 100 MG PO DAILY, (Reported) Entered as Reported by: BENI CRAFT on 06/15/221122 Last Action: Reviewed Menthol (Biofreeze) 4 % Gel..ml., 1 APPLIC TP Q4H PRN for PAIN-BREAKTHROUGH, (Reported) Entered as Reported by: BENI CRAFT on 06/15/221122 Last Action: Reviewed Metoclopramide HCl (Metoclopramide HCl) 5 Mg Tablet, 5 MG PO BID, (Reported) Entered as Reported by: BENI CRAFT on 06/15/221122 Last Action: Reviewed Metoclopramide HCl (Metoclopramide HCl) 5 Mg Tablet, 2.5 MG PO BID PRN for GERD, (Reported) Entered as Reported by: BENI CRAFT on 06/15/221122 Last Action: Reviewed Metoprolol Tartrate (Metoprolol Tartrate) 50 Mg Tablet, 125 MG PO BID, (Reported) Entered as Reported by: BENI CRAFT on 06/15/221122 Last Action: Reviewed Miconazole Nitrate (Remedy Antifungal) 2 % Powder, 1 APPLIC TP BID, (Reported) Entered as Reported by: BENI CRAFT on 06/15/221122 Last Action: Reviewed Multivitamin (Daily Value) 1 Each Tablet, 1 EA PO DAILY, (Reported) Entered as Reported by: ESTEBAN WHITING on 09/07/18 1209 Last Action: Reviewed Center Oil (Sweet Oil) 30 Ml Oil, 2 DROP OU ROSALINO, (Reported) Entered as Reported by: BENI CRAFT on 06/15/221122 Last Action: Reviewed Ondansetron HCl (Ondansetron HCl) 4 Mg Tablet, 4 MG PO Q8H PRN for NAUSEA/VOMITING-1ST LINE, (Reported) Entered as Reported by: BENI CRAFT on 06/15/221122 Last Action: Reviewed Pantoprazole Sodium (Protonix) 40 Mg Tablet.dr, 40 MG PO BID, (Reported) Entered as Reported by: ESTEBAN WHITING on 05/13/18 0935 Last Action: Reviewed Pectin (Throat Drops) 2.8 Mg Lozenge, 2.8 MG MM EVERY 2 HOURS PRN for SORE THROAT, (Reported) Entered as Reported by: BENI CRAFT on 06/15/221122 Last Action: Reviewed Simethicone (Gas-X) 125 Mg Capsule, 125 MG PO TID PRN for GAS, (Reported) Entered as Reported by: BENI CRAFT on 06/15/221122 Last Action: Reviewed Sulfamethoxazole/Trimethoprim (Bactrim Ds Tablet) 1 Each Tablet, 1 EACH PO BID, (Reported) Entered as Reported by: BENI CRAFT on 06/15/221122 Last Action: Reviewed Trazodone HCl (Trazodone HCl) 50 Mg Tablet, 50 MG PO HS, (Reported) Entered as Reported by: BENI CRAFT on 06/15/221122 Last Action: Reviewed Discontinued Medications Acetaminophen (Tylenol Extra Strength) 500 Mg Tablet, 1,000 MG PO Q8H PRN for PAIN-MILD, (Reported) Discontinued Reason: Duplicate Order Entered as Reported by: ESTEBAN WHITING on 09/07/18 1210 Last Action: Discontinued Diclofenac Sodium (Voltaren) 100 Gm Gel..gram., 4 GM TP Q4H PRN for BACK/SHOUL JOSE PAIN, (Reported) Discontinued Reason: Duplicate Order Entered as Reported by: ESTEBAN WHITING on 05/13/18934 Last Action: Discontinued Diphenhydramine HCl (Benadryl) 25 Mg Capsule, 25 MG PO HS, (Reported) Discontinued Reason: Duplicate Order Entered as Reported by: JOSE A ANNE on 01/15/21917 Last Action: Discontinued Gabapentin (Gabapentin) 600 Mg Tablet, 600 MG PO TID, (Reported) Discontinued Reason: Duplicate Order Entered as Reported by: JOSE A ANNE on 01/15/21917 Last Action: Discontinued Hydrocodone Bit/Acetaminophen (Lortab 5 Mg Tablet) 1 Each Tablet, 1-2 TAB PO Q6H PRN for PAIN-MODERATE, (Reported) Discontinued Reason: Duplicate Order Entered as Reported by: ESTEBAN WHITING on 05/13/18934 Last Action: Discontinued Hydrocortisone (Hydrocortisone) 28.35 Gm Cream..g., TP BID, (Reported) Discontinued Reason: Duplicate Order Entered as Reported by: ESTEBAN WHITING on 09/07/18 1209 Last Action: Discontinued Menthol (Biofreeze) 118 Ml Gel..ml., TP Q4H PRN for MUSCLE PAIN, (Reported) Discontinued Reason: Duplicate Order Entered as Reported by: ESTEBAN WHITING on 09/07/18 1210 Last Action: Discontinued Metoclopramide HCl (Reglan) 10 Mg Tablet, 5 MG PO BID PRN Discontinued Reason: Duplicate Order Prescribed by: MIRIAM SIERRA on 09/09/18 1012 Last Action: Discontinued Metoprolol Tartrate (Metoprolol Tartrate) 25 Mg Tablet, 12.5 MG PO BID, (Reported) Discontinued Reason: Duplicate Order Entered as Reported by: ESTEBAN WHITING on 05/13/18934 Last Action: Discontinued Ondansetron HCl (Zofran) 4 Mg Tab, 4 MG PO Q8H PRN for NAUSEA/VOMITING-1ST LINE, (Reported) Discontinued Reason: Duplicate Order Entered as Reported by: ESTEBAN WHITING on 09/07/18 121 Last Action: Discontinued Review of Systems Review of Systems Constitutional: fever Respiratory: cough Gastrointestinal: see HPI Genitourinary: see HPI Psychiatric/Neurological: See HPI Past Tnoclql-Tdmbbp-Hcpfvw Hx Patient Social History Tobacco Use?: No Substance use?: No Alcohol Use?: Yes Alcohol type: Beer, Wine Alcohol Frequency: Once in a while Immunizations Up To Date Tetanus Booster (TDap): Unknown PED Vaccines UTD: Yes First/Initial COVID19 Vaccinat: 05/31/2020 Second COVID19 Vaccination [place]: 06/20/2020 Third COVID19 Vaccination Date: N/A Seasonal Allergies Seasonal Allergies: Yes Past Medical History Surgery/Hospitalization HX: DROP FORGER SHUNT, COLOSTOMY, SUPRAPUBIC CATHETER, MULTIPLE ABDOMINAL SX. SPINABIFIDA, GOUT, HTN, SEIZURES, HRN, NEUROGENIC BLADDER, NIDDM, NON-AMBULATORY, DEPRESSION. Surgeries: Yes Abdominal, Bladder Surgery, Brain Shunt, Neurological Respiratory: Yes Asthma Cardiac: Yes Hypertension Neurological: Yes (SPINA BIFIDA--NON-AMBULATORY; HYDRCEPHALUS WITH DROP FORGER SHUNT) Seizure Disorder Genitourinary: Yes (SUPRAPUBIC CATHETER; RENAL FAILURE WITH BOWEL PERFORATION) Renal Failure, Neurogenic Bladder Gastrointestinal: Yes (ILEOSTOMY/COLOSTOMY FOR BOWEL PERFORATION; MULTIPLE ABDOMINAL SURGERIES) Abdominal Hernia Musculoskeletal: Yes (SPINA BIFIDA WITH PARAPLEGIA; CHRONIC RIGHT HIP DISLOCATION NOTED ON CT; ) Endocrine: Yes (MORBID OBESITY) Diabetes, Non-Insulin dep HEENT: No Cancer: No Psychosocial: Yes Depression Integumentary: Yes (DECUBITUS ULCERS;HX CHRONIC ABD WOUNDS POST OP) Blood Disorders: Yes (ANEMIA) Family Medical History Patient reports no known family medical history. No Pertinent Family Hx, Other Conditions/Hx SOCIAL HISTORY: -DENIES SMOKING -DENIES DRUG USE -OCCASIONAL ALCOHOL USE PAST SURGICAL HISTORY: -MULTIPLE ABDOMINAL SURGERIES FOR BOWEL OBSTRUCTIONS, CHRONIC ABDOMINAL WOUNDS, BOWEL PERFORATION -PERMANENT ILEOSTOMY/COLOSTOMY FOR BOWEL PERFORATION -PERMANENT SUPRAPUBIC CATHETER -DROP FORGER SHUNT FOR HYDROCEPHALUS - Physical Exam Vital Signs Vital Signs - First Documented 06/14/22 06/14/22 06/14/22 14:17 14:24 15:02 Temp 38.9 Pulse 98 Resp 20 B/P (MAP) 102/61 (75) Pulse Ox 92 O2 Delivery Room Air O2 Flow Rate 2.00 Capillary Refill : Height, Weight, BMI Height: 5'4.00" Weight: 278lbs. 11.2oz. 126.558549jx; 47.00 BMI Method:Stated General Appearance: No Apparent Distress, Obese HEENT: PERRL/EOMI Neck: Normal Inspection Respiratory: Normal Breath Sounds, No Accessory Muscle Use, No Respiratory Distress Cardiovascular: Regular Rate, Rhythm, No Murmur Gastrointestinal: Non Tender, Soft, Other (COLOSTOMY IN RIGHT MID ABDOMEN; SUPRAPUBIC CATH IN PLACE. NO SIGNS OF INFECTION OR BLEEDING ) Extremity: Normal Capillary Refill Neurologic/Psychiatric: Alert, Other (PT IS NOT WANTING TO TALK ON ARRIVAL. ANXIOUS ABOUT IV STICKS AND IS FOCUSED ON THAT ON ARRIVAL; PARAPLEGIA. ) Skin: Normal Color, Warm/Dry; No Rash Focused Exam Sepsis Stage: Sepsis Possible Source: Genitouriary Lactate Level 06/14/22 15:40: Lactic Acid Level 1.30 Time of Focused Exam: 16:10 Respiratory: Normal Breath Sounds, No Accessory Muscle Use, No Respiratory Distress Cardiovascular: Regular Rate, Rhythm Capillary Refill: Less Than 3 Seconds Lactic Acid Level Laboratory Tests Test 06/14/22 15:40 Lactic Acid Level 1.30 MMOL/L (0.50-2.00) Within 3hrs of presentation: Admin fluids, Admin ABX, Blood cultures prior to ABX's, Focus exam, Lactate level Progress/Results/Core Measures Suspected Sepsis SIRS Temperature: Pulse: Respiratory Rate: Laboratory Tests 06/14/22 15:40: White Blood Count 12.9H Blood Pressure / Mean: 06/14/22 15:40: Lactic Acid Level 1.30 Laboratory Tests 06/14/22 15:40: Creatinine 2.79H, INR Comment 1.1, Platelet Count 214, Total Bilirubin 0.4 Results/Orders Lab Results Laboratory Tests Test 06/14/22 14:32 06/14/22 14:38 06/14/22 15:40 Range/Units Influenza Type A (RT-PCR) Not Detected Not Detecte Influenza Type B (RT-PCR) Not Detected Not Detecte SARS-CoV-2 RNA (RT-PCR) Not Detected Not Detecte Urine Color YELLOW Urine Clarity CLOUDY Urine pH 5.5 5-9 Urine Specific [place] 1.020 1.016-1.022 Urine Protein 2+ H NEGATIVE Urine Glucose (UA) NEGATIVE NEGATIVE Urine Ketones NEGATIVE NEGATIVE Urine Nitrite NEGATIVE NEGATIVE Urine Bilirubin NEGATIVE NEGATIVE Urine Urobilinogen 0.2 < = 1.0 MG/DL Urine Leukocyte Esterase 3+ H NEGATIVE Urine RBC (Auto) 2+ H NEGATIVE Urine RBC 25-50 H /HPF Urine WBC >100 H /HPF Urine Squamous Epithelial Cells 10-25 H /HPF Urine Crystals PRESENT H /LPF Urine Amorphous Sediment MOD ANNALISA URATES H /LPF Urine Bacteria MODERATE H /HPF Urine Casts NONE /LPF Urine Mucus SMALL H /LPF Urine Culture Indicated CULTURE PENDING White Blood Count 12.9 H 4.3-11.0 10^3/uL Red Blood Count 4.38 4.30-5.52 10^6/uL Hemoglobin 12.5 L 13.3-17.7 g/dL Hematocrit 38 L 40-54 % Mean Corpuscular Volume 87 80-99 fL Mean Corpuscular Hemoglobin 29 25-34 pg Mean Corpuscular Hemoglobin Concent 33 32-36 g/dL Red Cell Distribution Width 14.2 10.0-14.5 % Platelet Count 214 130-400 10^3/uL Mean Platelet Volume 9.8 9.0-12.2 fL Immature Granulocyte % (Auto) 1 % Neutrophils (%) (Auto) 80 H 42-75 % Lymphocytes (%) (Auto) 11 L 12-44 % Monocytes (%) (Auto) 8 0-12 % Eosinophils (%) (Auto) 0 0-10 % Basophils (%) (Auto) 0 0-10 % Neutrophils # (Auto) 10.4 H 1.8-7.8 X 10^3 Lymphocytes # (Auto) 1.4 1.0-4.0 X 10^3 Monocytes # (Auto) 1.0 0.0-1.0 X 10^3 Eosinophils # (Auto) 0.0 0.0-0.3 10^3/uL Basophils # (Auto) 0.0 0.0-0.1 10^3/uL Immature Granulocyte # (Auto) 0.1 0.0-0.1 10^3/uL Erythrocyte Sedimentation Rate 89 H 0-15 MM/HR Prothrombin Time 14.3 12.2-14.7 SEC INR Comment 1.1 0.8-1.4 Activated Partial Thromboplast Time 38 H 24-35 SEC D-Dimer 0.79 H 0.00-0.49 UG/ML Sodium Level 129 L 135-145 MMOL/L Potassium Level 4.3 3.6-5.0 MMOL/L Chloride Level 99 98-107 MMOL/L Carbon Dioxide Level 17 L 21-32 MMOL/L Anion Gap 13 5-14 MMOL/L Blood Urea Nitrogen 35 H 7-18 MG/DL Creatinine 2.79 H 0.60-1.30 MG/DL Estimat Glomerular Filtration Rate 30 BUN/Creatinine Ratio 13 Glucose Level 136 H 70-105 MG/DL Lactic Acid Level 1.30 0.50-2.00 MMOL/L Calcium Level 8.9 8.5-10.1 MG/DL Corrected Calcium 9.5 8.5-10.1 MG/DL Magnesium Level 2.0 1.6-2.4 MG/DL Total Bilirubin 0.4 0.1-1.0 MG/DL Aspartate Amino Transf (AST/SGOT) 32 5-34 U/L Alanine Aminotransferase (ALT/SGPT) 40 0-55 U/L Alkaline Phosphatase 86 40-136 U/L Myoglobin 129.7 H 10.0-92.0 NG/ML Troponin I 0.084 H <0.028 NG/ML C-Reactive Protein High Sensitivity 34.90 H 0.00-0.50 MG/DL B-Type Natriuretic Peptide 55.8 <100.0 PG/ML Total Protein 7.0 6.4-8.2 GM/DL Albumin 3.3 3.2-4.5 GM/DL Amylase Level 46 25-125 U/L Lipase 40 8-78 U/L Micro Results Microbiology 06/14/22 Blood Culture - Preliminary, Resulted No growth 06/14/22 Blood Culture - Preliminary, Resulted No growth 06/14/22 Urine Culture - Preliminary, Resulted Escherichia coli Strep agalactiae Group B See Comments My Orders Orders - KARUNA ALCOCER DO Ed Iv/Invasive Line Start (06/14/22 14:18) Ekg Tracing (06/14/22 14:18) O2 (06/14/22 14:18) Monitor-Rhythm Ecg Trace Only (06/14/22 14:18) Chest 1 View, Ap/Pa Only (06/14/22 14:18) Amylase (06/14/22 14:18) Bnp [place] (06/14/22 14:18) Cbc With Automated Diff (06/14/22 14:18) Comprehensive Metabolic Panel (06/14/22 14:18) Hs C Reactive Protein (06/14/22 14:18) Fibrin Degradation Products (06/14/22 14:18) Lactic Acid Analyzer (06/14/22 14:18) Lipase (06/14/22 14:18) Magnesium (06/14/22 14:18) Protime With Inr (06/14/22 14:18) Partial Thromboplastin Time (06/14/22 14:18) Ua Culture If Indicated (06/14/22 14:18) Blood Culture (06/14/22 14:18) Erythrocyte Sedimentation Rate (06/14/22 14:18) Myoglobin Serum (06/14/22 14:18) Troponin I Remy (06/14/22 14:18) Covid 19 Inhouse Test (06/14/22 14:18) Sputum Culture (06/14/22 14:18) Urine Culture (06/14/22 14:18) Ed Iv/Invasive Line Start (06/14/22 14:18) Ed Iv/Invasive Line Start (06/14/22 14:18) Vital Signs Adult Sepsis Patie Q15M (06/14/22 14:18) O2 (06/14/22 14:18) Remove Rings In Anticipation O (06/14/22 14:18) Cefepime Injection (Maxipime Injection) (06/14/22 14:30) Influenza A And B By Pcr (06/14/22 14:18) Isolation Central Supply Req (06/14/22 14:18) Acetaminophen Tablet (Tylenol Tablet) (06/14/22 16:00) Ibuprofen Tablet (Motrin Tablet) (06/14/22 16:00) Medications Given in ED Vital Signs/I&O 06/14/22 06/14/22 06/14/22 06/14/22 14:17 14:24 14:56 15:02 Temp 38.9 Pulse 98 92 Resp 20 17 B/P (MAP) 102/61 (75) Pulse Ox 92 94 97 O2 Delivery Room Air Nasal Cannula Nasal Cannula Nasal Cannula O2 Flow Rate 2.00 2.00 2.00 06/14/22 16:00 Temp 38.9 Capillary Refill : Progress Note : Progress Note PPE WORN COVID AND FLU TESTING DONE SEPSIS PROTOCOL INITIATED BASED ON PT'S SYMPTOMS OF FEVER, COUGH AND HYPOXIA PT MEETS SEPSIS CRITERIA BASED ON FEVER OF 102, WBC 12.9, HYPOXIA, WITH UTI SOURCE. VERY DIFFICULT IV ACCESS GIVEN: -IV FLUIDS -ANTIBIOTICS -TYLENOL AND MOTRIN FOR FEVER NO DETERIORATION IN PT'S CONDITION DURING ER STAY VITALS STABLE--NO HYPOTENSION OR TACHYCARDIA PT VOICED NO COMPLAINTS FOR ENTIRE ER STAY. AT TIME OF ADMIT, PT IS NOW TALKING AND ANSWERING QUESTIONS NORMALLY, IS NO LONGER ANXIOUS NO COUGH NO DYSPNEA INIITAL O2 SATS 91% ON ROOM AIR--UP TO 96-98% ON 2L/NC. REVIEWED OLD RECORDS, INCLUDING ER VISITS, ADMITS, H&P'S, CONSULTS, TESTS/PROCEDURES AND DISCHARGE SUMMARIES REVIEWED ALL TEST RESULTS WITH PATIENT, AND PT IS AGREEABLE TO ADMIT. COMPLEX MANAGEMENT DUE TO MULTIPLE CO-MORBIDITIES INCLUDING: IMMOBILIZATION DUE TO PARALYSIS SECONDARY TO SPINA BIFIDA, OBESITY, NIDDM, HTN, PERMANENT SUPRAPUBIC CATHETER AND PERMANENT ILEOSTOMY/COLOSTOMY, WITH PERMANENT DROP FORGER SHUNT IN PLACE, IN SETTING OF SEPSIS, UTI, WITH ACUTE RENAL FAILURE/ACUTE KIDNEY INJURY, WITH HYPOXIA, ELEVATED TROPONIN, ELEVATED D-DIMER. UNABLE TO DO CT CHEST ANGIOGRAM AT THIS TIME DUE TO POOR RENAL FUNCTION WILL START ON FULL DOSE LOVENOX AND OBTAIN V/Q SCAN IN AM WILL ALSO ORDER ECHOCARDIOGRAM IN AM, WELL SERIAL EKG'S AND TROPONIN'S. WILL CONTINUE SEPSIS PROTOCOL WITH IV FLUIDS AND ANTIBIOTICS. URINE CULTURE IS PENDING DISCUSSED POSSIBLE NEED FOR PORT PLACEMENT DUE TO VERY POOR IV ACCESS, WITH DR. SALINAS AT TIME OF ADMIT ECG Initial ECG Impression Date: Jun 14, 2022 Initial ECG Impression Time: 14:33 Initial ECG Rate: 95 Initial ECG Rhythm: Normal Sinus Comment INTERPRETED BY ME Diagnostic Imaging Comments CXR--PER RADIOLOGIST REPORT AT 1511 Findings: No focal airspace disease in the visualized lungs. No pleural effusion or pneumothorax. Normal cardiomediastinal silhouette. Impression: 1. No acute cardiopulmonary process by portable radiography. Reviewed: Reviewed by Me Departure Communication (Admissions) Family Conversation 1654--SPOKE WITH PT'S MOTHER AT PT'S REQUEST, AND UPDATED HER ON PT'S CONDITION. 1637--SPOKE WITH DR. SALINAS, HOSPITALIST, ACCEPTS PT FOR ADMIT. 1644--SPOKE WITH DR. GARCIA FOR CARDIOLOGY CONSULT. Impression Primary Impression: Sepsis Additional Impressions: UTI (urinary tract infection) Hypoxia ACUTE RENAL FAILURE/ACUTE KINDEY INJURY NIDDM PARAPLEGA DUE TO SPINA BIFIDA History of hypertension Elevated troponin Elevated d-dimer Hyponatremia Disposition: ADMITTED INPATIENT Condition: Stable Admissions Decision to Admit Reason: Admit from ER (General) Decision to Admit/Date: Jun 14, 2022 Time/Decision to Admit Time: 16:40 Departure-Patient Inst. Referrals: MIRIAM SIERRA MD (PCP/Family) Primary Care Physician KARUNA ALCOCER DO Jun 14, 2022 14:41
[2022-06-14 14:47] LABS: BILIRUBIN,URINE NEGATIVE (NEGATIVE); CLARITY,URINE CLOUDY; COLOR,URINE YELLOW; GLUCOSE, URINE (UA) NEGATIVE (NEGATIVE); KETONES,URINE NEGATIVE (NEGATIVE); LEUKOCYTE ESTERASE ,URINE 3+ (NEGATIVE); NITRITE,URINE NEGATIVE (NEGATIVE); PH,URINE 5.5 (5-9); PROTEIN,URINE 2+ (NEGATIVE)
[2022-06-14 14:59] LABS: AMORPHOUS SEDIMENT,UR MOD AMOR URATES /LPF; BACTERIA,URINE MODERATE /HPF; RBC,URINE 25-50 /HPF; WBC,URINE >100 /HPF
--- NOTE | 2022-06-14 14:59 | Diagnostic Imaging Report ---
CHEST 1 VIEW, AP/PA ONLY Indication: Hypoxia Comparison: 09/06/2018 Findings: No focal airspace disease in the visualized lungs. No pleural effusion or pneumothorax. Normal cardiomediastinal silhouette. Impression: 1. No acute cardiopulmonary process by portable radiography. Dictated by: Dictated on workstation # [id number]
[2022-06-14] MEDS ORDERED: ACETAMINOPHEN 500 MG TAB (TYLENOL) PO ONE ×2 (16:00→19:45)
[2022-06-14] MEDS ORDERED: IBUPROFEN 800 MG (MOTRIN) TAB PO ONE (16:00)
[2022-06-14 16:08] LABS: BASOPHILS % (AUTO) 0 % (0-10); EOSINOPHILS % (AUTO) 0 % (0-10); HEMATOCRIT 38 % (40-54); HEMOGLOBIN 12.5 g/dL (13.3-17.7); LYMPHOCYTES # (AUTO) 1.4 X 10^3 (1.0-4.0); LYMPHOCYTES % (AUTO) 11 % (12-44); MEAN CORPUSCULAR HEMOGLOBIN 29 pg (25-34); MEAN CORPUSCULAR HGB CONC 33 g/dL (32-36); MEAN CORPUSCULAR VOLUME 87 fL (80-99); MEAN PLATELET VOLUME 9.8 fL (9.0-12.2); MONOCYTES % (AUTO) 8 % (0-12); NEUTROPHILS # (AUTO) 10.4 X 10^3 (1.8-7.8); NEUTROPHILS % (AUTO) 80 % (42-75); PLATELET COUNT 214 10^3/uL (130-400); WHITE BLOOD COUNT 12.9 10^3/uL (4.3-11.0)
[2022-06-14 16:19] LABS: FIBRIN DEGRADATION PRODUCTS 0.79 UG/ML (0.00-0.49); INR 1.1 (0.8-1.4); PROTHROMBIN TIME PATIENT 14.3 SEC (12.2-14.7)
[2022-06-14 16:29] LABS: ERYTHROCYTE SEDIMENTATION RATE 89 MM/HR (0-15)
[2022-06-14 16:32] LABS: ALBUMIN 3.3 GM/DL (3.2-4.5); BILIRUBIN,TOTAL 0.4 MG/DL (0.1-1.0); CALCIUM 8.9 MG/DL (8.5-10.1); CREATININE SERUM 2.79 MG/DL (0.60-1.30); POTASSIUM 4.3 MMOL/L (3.6-5.0)
[2022-06-14] MEDS ORDERED: ENOXAPARIN 60 MG/0.6 ML (LOVENOX) SYR SC ONE (16:45)
[2022-06-14] MEDS ORDERED: ENOXAPARIN 80 MG/0.8 ML (LOVENOX) SYR SC ONE (16:45)
[2022-06-14] MEDS ORDERED: NS IV 1000 ML 1,000 ML IV SCH (17:15)
[2022-06-14 18:39] VITALS: BP 126/79
[2022-06-14] MEDS ORDERED: NITROGLYCERIN 2% OINT 1 GM UNIT DOSE PACKET TOP ONE (19:00)
[2022-06-14] MEDS ORDERED: NITROGLYCERIN 0.4 MG SL TABS BTL 25'S SL PRN (19:00)
[2022-06-14] MEDS ORDERED: NS IV 1000 ML 1,000 ML ONE (19:27)
[2022-06-14 19:31] VITALS: BP 126/79
[2022-06-14 19:34] VITALS: BP 116/76
[2022-06-14] MEDS ORDERED: IBUPROFEN 600 MG (MOTRIN) TAB PO PRN (19:45)
[2022-06-14] MEDS ORDERED: RT-ALBUTEROL SULF 2.5 MG/3 ML PRE-MIX VIAL INH PRN (19:45)
[2022-06-14] MEDS ORDERED: ACETAMINOPHEN 500 MG TAB (TYLENOL) ONE (19:47)
[2022-06-14 21:18] VITALS: BP 120/75
[2022-06-14] MEDS ORDERED: ACETAMINOPHEN 500 MG TAB (TYLENOL) PO PRN (21:30)
[2022-06-14] MEDS ORDERED: ONDANSETRON 4 MG/2 ML (SDV) Z0FRAN IV PRN (21:30)
[2022-06-14] MEDS: NS IV 1000 ML 1,000 ML IV SCH (23:07)
[2022-06-14] MEDS: NITROGLYCERIN 2% OINT 1 GM UNIT DOSE PACKET TOP SCH (23:15)
[2022-06-14 23:20] VITALS: BP 122/58
[2022-06-15] MEDS ORDERED: CEFEPIME 1,000 MG/NS 50 ML IVPB IV SCH ×2
[2022-06-15 03:52] VITALS: BP 147/85
[2022-06-15 05:53] LABS: BASOPHILS % (AUTO) 0 % (0-10); EOSINOPHILS # (AUTO) 0.1 10^3/uL (0.0-0.3); EOSINOPHILS % (AUTO) 2 % (0-10); HEMATOCRIT 33 % (40-54); HEMOGLOBIN 10.8 g/dL (13.3-17.7); LYMPHOCYTES # (AUTO) 0.8 10^3/uL (1.0-4.0); LYMPHOCYTES % (AUTO) 10 % (12-44); MEAN CORPUSCULAR HEMOGLOBIN 29 pg (25-34); MEAN CORPUSCULAR HGB CONC 33 g/dL (32-36); MEAN CORPUSCULAR VOLUME 88 fL (80-99); MEAN PLATELET VOLUME 10.2 fL (9.0-12.2); MONOCYTES # (AUTO) 0.7 10^3/uL (0.0-1.0); MONOCYTES % (AUTO) 9 % (0-12); NEUTROPHILS # (AUTO) 5.9 10^3/uL (1.8-7.8); NEUTROPHILS % (AUTO) 78 % (42-75); PLATELET COUNT 157 10^3/uL (130-400); WHITE BLOOD COUNT 7.6 10^3/uL (4.3-11.0)
[2022-06-15] MEDS: NITROGLYCERIN 2% OINT 1 GM UNIT DOSE PACKET TOP SCH ×4 (05:56→23:24)
[2022-06-15] MEDS ORDERED: ENOXAPARIN 150 MG/ML (LOVENOX) SYR SQ SCH (06:00)
[2022-06-15] MEDS: NS IV 1000 ML 1,000 ML IV SCH ×4 (06:02→20:47)
[2022-06-15 06:09] LABS: ALBUMIN 2.8 GM/DL (3.2-4.5); POTASSIUM 4.5 MMOL/L (3.6-5.0)
[2022-06-15 06:11] LABS: CALCIUM 8.3 MG/DL (8.5-10.1)
[2022-06-15 06:12] LABS: TOTAL PROTEIN 6.1 GM/DL (6.4-8.2)
[2022-06-15 06:14] LABS: BILIRUBIN,TOTAL 0.2 MG/DL (0.1-1.0)
[2022-06-15 06:16] LABS: CREATININE SERUM 2.43 MG/DL (0.60-1.30)
[2022-06-15] MEDS: inSUlin ASPART (NovoLOG) 1 UNIT/0.01 ML (CHARGE PER UNIT) SC SCH ×4 (06:30→20:42)
--- NOTE | 2022-06-15 07:54 | Diagnostic Imaging Report ---
INDICATION: Sepsis AP view of the chest is obtained with comparison made to study of one day earlier. FINDINGS: Heart size and pulmonary vascularity are within normal limits, and the lungs are clear, bilaterally. IMPRESSION: Unremarkable chest. Dictated by: Dictated on workstation # [id number]
[2022-06-15 08:00] VITALS: BP 140/83
[2022-06-15] MEDS: CEFEPIME 1,000 MG/NS 50 ML IVPB IV SCH ×6 (08:41→21:29)
--- NOTE | 2022-06-15 08:47 | History & Physical ---
History of Present Illness History of Present Illness Reason for visit/HPI Jon is a 36 y/o male who is well known to me from clinic. 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 Jon resides at [facility] and rehab with his spouse and was in his usual state of health until his catheter was changed last week. The staff changed his catheter in the middle of the night, was unable to replace the catheter, he was sent to [facility] and then up to when the suprapubic catheter could not be appropriately replaced at the local ER. At the catheter was successfully placed and Jon was transferred back to [facility] and rehab. He started to have symptoms of illness, fever, confusion, and lethargy, was transferred to the ER at [facility] on 06/14/22, and found to have acute renal failure and UTI with need for IV antibiotics. Date of Admission Jun 14, 2022 at 16:38 Date Seen by a Provider: Jun 15, 2022 Time Seen by a Provider: 08:40 Attending Physician Miriam Nuñez MD Admitting Physician Admitting Physician: Lexie Gr MD Attending Physician: Miriam Nuñez MD Consult Allergies and Home Medications Allergies Coded Allergies: latex (Verified Allergy, Unknown, 09/06/18) Patient Home Medication List Home Medication List Reviewed: Yes Acetaminophen (Tylenol Extra Strength) 500 Mg Tablet, 500 MG PO HS, (Reported) Entered as Reported by: ESTEBAN WHITING on 05/13/18934 Last Action: Continued Acetaminophen (Tylenol Extra Strength) 500 Mg Tablet, 1,000 MG PO Q8H PRN for PAIN-MILD (1-4), (Reported) Entered as Reported by: BENI CRAFT on 06/15/221122 Last Action: Reviewed Allopurinol (Allopurinol) 100 Mg Tablet, 100 MG PO DAILY, (Reported) Entered as Reported by: ESTEBAN WHITING on 05/13/18934 Last Action: Continued Alprazolam (Alprazolam) 0.5 Mg Tablet, 0.5 MG PO TID PRN for ANXIETY, (Reported) Entered as Reported by: BENI CRAFT on 06/15/221122 Last Action: Reviewed Amitriptyline HCl (Amitriptyline HCl) 10 Mg Tablet, 5 MG PO 0600,1800, (Reported) Entered as Reported by: BENI CRAFT on 06/15/221122 Last Action: Continued Cetirizine HCl (Zyrtec) 10 Mg Tablet, 10 MG PO DAILY PRN for ALLERGY SYMPTOMS, (Reported) Entered as Reported by: ESTEBAN WHITING on 05/13/18934 Last Action: Reviewed D-Methorphan/Acetamin/Doxylamn (Vicks Nyquil Liquicaps) 15 Mg-325 Mg-6.25 Mg Capsule, 1 EACH PO HS PRN for SINUS CONGESTION, (Reported) Entered as Reported by: BENI CRAFT on 06/15/221122 Last Action: Held Diclofenac Sodium (Diclofenac Sodium) 1 % Gel..gram., 2 GM TP 1000,1400,2000, (Reported) Entered as Reported by: BENI CRAFT on 06/15/221122 Last Action: Continued Diclofenac Sodium (Diclofenac Sodium) 1 % Gel..gram., 4 GM TP Q4H PRN for PAIN- BREAKTHROUGH, (Reported) Entered as Reported by: BENI CRAFT on 06/15/221122 Last Action: Reviewed Dm/PE/Acetaminophen/Doxylamine (Vicks Dayquil-Nyquil Cold-Flu) 10-5-325MG Cap.seq, 1 EACH PO EVERY 20 HOURS, (Reported) Entered as Reported by: BENI CRAFT on 06/15/221122 Last Action: Held Duloxetine HCl (Cymbalta) 30 Mg Capsule.dr, 30 MG PO DAILY, (Reported) Entered as Reported by: ESTEBAN WHITING on 05/13/18934 Last Action: Reviewed Ferrous Sulfate (Ferrous Sulfate) 325 Mg (65 Mg Iron) Tablet, 325 MG PO BID, (Reported) Entered as Reported by: BENI CRAFT on 06/15/221122 Last Action: Held Fluticasone Propionate (Fluticasone Propionate) 50 Mcg/Actuation [place].susp, 1 SPRAY NSEACH Q12H PRN for ALLERGY SYMPTOMS, (Reported) Entered as Reported by: ESTEBAN WHITING on 05/13/18934 Last Action: Held Gabapentin (Gabapentin) 800 Mg Tablet, 800 MG PO 0600,1000,1400, (Reported) Entered as Reported by: BENI CRAFT on 06/15/221122 Last Action: Reviewed Hydralazine HCl (Hydralazine HCl) 25 Mg Tablet, 25 MG PO TID, (Reported) Entered as Reported by: BENI CRAFT on 06/15/221122 Last Action: Continued Hydrocodone/Acetaminophen (Hydrocodone-Acetamin 5-325 mg) 5 Mg-325 Mg Tablet, 1 EA PO 1700, (Reported) Entered as Reported by: BENI CRAFT on 06/15/221122 Last Action: Reviewed Hydrocodone/Acetaminophen (Hydrocodone-Acetamin 5-325 mg) 5 Mg-325 Mg Tablet, 1- 2 EA PO Q6H PRN for PAIN-MODERATE (5-7), (Reported) Entered as Reported by: BENI CRAFT on 06/15/221122 Last Action: Continued Hydrocortisone (Hydrocortisone) 1 % Cream..g., 1 APPLIC TP DAILY PRN for ITCHING, (Reported) Entered as Reported by: BENI CRAFT on 06/15/221122 Last Action: Held L. Acidophilus/L.bulgaricus (Lactobacillus Tablet) 1 Million Cell Tablet, 1 TAB PO 0600,1400, (Reported) Entered as Reported by: ESTEBAN WHITING on 05/13/18934 Last Action: Converted Levetiracetam (Keppra) 500 Mg Tablet, 1,500 MG PO BID, (Reported) Entered as Reported by: ESTEBAN WHITING on 05/13/18934 Last Action: Reviewed Lidocaine/Menthol (Lidocaine-Menthol 4%-1% Gel) 4 %-1 % Gel..gram., 1 APPLIC TP 0600,1000,1400, (Reported) Entered as Reported by: BENI CRAFT on 06/15/221122 Last Action: Reviewed Losartan Potassium (Losartan Potassium) 100 Mg Tablet, 100 MG PO DAILY, (Reported) Entered as Reported by: BENI CRAFT on 06/15/221122 Last Action: Reviewed Menthol (Biofreeze) 4 % Gel..ml., 1 APPLIC TP Q4H PRN for PAIN-BREAKTHROUGH, (Reported) Entered as Reported by: BENI CRAFT on 06/15/221122 Last Action: Held Metoclopramide HCl (Metoclopramide HCl) 5 Mg Tablet, 5 MG PO BID, (Reported) Entered as Reported by: BENI CRAFT on 06/15/221122 Last Action: Continued Metoclopramide HCl (Metoclopramide HCl) 5 Mg Tablet, 2.5 MG PO BID PRN for GERD, (Reported) Entered as Reported by: BENI CRAFT on 06/15/221122 Last Action: Reviewed Metoprolol Tartrate (Metoprolol Tartrate) 50 Mg Tablet, 125 MG PO BID, (Reported) Entered as Reported by: BENI CRAFT on 06/15/221122 Last Action: Held Miconazole Nitrate (Remedy Antifungal) 2 % Powder, 1 APPLIC TP BID, (Reported) Entered as Reported by: BENI CRAFT on 06/15/221122 Last Action: Continued Multivitamin (Daily Value) 1 Each Tablet, 1 EA PO DAILY, (Reported) Entered as Reported by: ESTEBAN WHITING on 09/07/18 1209 Last Action: Reviewed [place] Oil (Sweet Oil) 30 Ml Oil, 2 DROP OU ROSALINO, (Reported) Entered as Reported by: BENI CRAFT on 06/15/221122 Last Action: Held Ondansetron HCl (Ondansetron HCl) 4 Mg Tablet, 4 MG PO Q8H PRN for NAUSEA/VOMITING-1ST LINE, (Reported) Entered as Reported by: BENI CRAFT on 06/15/221122 Last Action: Reviewed Pantoprazole Sodium (Protonix) 40 Mg Tablet.dr, 40 MG PO BID, (Reported) Entered as Reported by: ESTEBAN WHITING on 05/13/18 0935 Last Action: Continued Pectin (Throat Drops) 2.8 Mg Lozenge, 2.8 MG MM EVERY 2 HOURS PRN for SORE THROAT, (Reported) Entered as Reported by: BENI RCAFT on 06/15/221122 Last Action: Held Simethicone (Gas-X) 125 Mg Capsule, 125 MG PO TID PRN for GAS, (Reported) Entered as Reported by: BENI CRAFT on 06/15/221122 Last Action: Held Trazodone HCl (Trazodone HCl) 50 Mg Tablet, 50 MG PO HS, (Reported) Entered as Reported by: BENI CRAFT on 1/30/23 1123 Last Action: Reviewed Discontinued Medications Acetaminophen (Tylenol Extra Strength) 500 Mg Tablet, 1,000 MG PO Q8H PRN for PAIN-MILD, (Reported) Discontinued Reason: Duplicate Order Entered as Reported by: ESTEBAN WHITING on 09/07/18 1210 Last Action: Discontinued Diclofenac Sodium (Voltaren) 100 Gm Gel..gram., 4 GM TP Q4H PRN for BACK/SHOULDER PAIN, (Reported) Discontinued Reason: Duplicate Order Entered as Reported by: ESTEBAN WHITING on 05/13/18934 Last Action: Discontinued Diphenhydramine HCl (Benadryl) 25 Mg Capsule, 25 MG PO HS, (Reported) Discontinued Reason: Duplicate Order Entered as Reported by: JOSE A ANNE on 01/15/21917 Last Action: Discontinued Gabapentin (Gabapentin) 600 Mg Tablet, 600 MG PO TID, (Reported) Discontinued Reason: Duplicate Order Entered as Reported by: JOSE A ANNE on 01/15/21917 Last Action: Discontinued Hydrocodone Bit/Acetaminophen (Lortab 5 Mg Tablet) 1 Each Tablet, 1-2 TAB PO Q6H PRN for PAIN-MODERATE, (Reported) Discontinued Reason: Duplicate Order Entered as Reported by: ESTEBAN WHITING on 05/13/18934 Last Action: Discontinued Hydrocortisone (Hydrocortisone) 28.35 Gm Cream..g., TP BID, (Reported) Discontinued Reason: Duplicate Order Entered as Reported by: ESTEBAN WHITING on 09/07/18 1209 Last Action: Discontinued Menthol (Biofreeze) 118 Ml Gel..ml., TP Q4H PRN for MUSCLE PAIN, (Reported) Discontinued Reason: Duplicate Order Entered as Reported by: ESTEBAN WHITING on 09/07/18 1210 Last Action: Discontinued Metoclopramide HCl (Reglan) 10 Mg Tablet, 5 MG PO BID PRN Discontinued Reason: Duplicate Order Prescribed by: MIRIAM NUÑEZ on 09/09/18 1012 Last Action: Discontinued Metoprolol Tartrate (Metoprolol Tartrate) 25 Mg Tablet, 12.5 MG PO BID, (Report ed) Discontinued Reason: Duplicate Order Entered as Reported by: ESTEBAN WHITING on 05/13/18934 Last Action: Discontinued Ondansetron HCl (Zofran) 4 Mg Tab, 4 MG PO Q8H PRN for NAUSEA/VOMITING-1ST LINE, (Reported) Discontinued Reason: Duplicate Order Entered as Reported by: ESTEBAN WHITING on 09/07/18 1217 Last Action: Discontinued Sulfamethoxazole/Trimethoprim (Bactrim Ds Tablet) 1 Each Tablet, 1 EACH PO BID, (Reported) Entered as Reported by: BENI CRAFT on 06/15/22 1123 Last Action: Discontinued Past Seuskkr-Otffsu-Ymcyli Hx Patient Social History Marrital Status: Number of Children: 0 Number of living children: 0 Living Status: lives at [facility] and [facility] Employed/Student: unemployed (on Disability) Tobacco Use?: No Smoking Status: Never a Smoker Smokeless Tobacco Frequency: Never a User Use of E-Cig and/or Vaping dev: No Use of E-Cig and/or Vaping Landen: Never a User Substance use?: No Alcohol Use?: Yes Alcohol type: Beer, Wine Alcohol Frequency: Once in a while Pt feels they are or have been: No Immunizations Up To Date Date of Influenza Vaccine: Feb 14, 2021 First/Initial COVID19 Vaccinat: 05/31/2020 Second COVID19 Vaccination Dieudonne: 06/20/2020 Tetanus Booster (TDap): Unknown PED Vaccines UTD: Yes Seasonal Allergies Seasonal Allergies: Yes Current Status Advance Directives: Yes Communicates: Verbally Primary Language: Citizen Of [place] Preferred Spoken Language: Citizen Of [place] Is interpretation needed?: No Past Medical History Surgeries: Abdominal, Bladder Surgery, Brain Shunt, Neurological Asthma Currently Using CPAP: No Currently Using BIPAP: No Hypertension Seizure Disorder Sexually Transmitted Disease: No HIV/AIDS: No Renal Failure, Neurogenic Bladder Abdominal Hernia Diabetes, Non-Insulin dep Are Your Blood Sugars Over 250: No Loss of Vision: Denies Hearing Impairment: Denies Anxiety, Depression Blood Disorders: Yes (ANEMIA) Family Medical History Reviewed Nursing Family Hx Patient reports no known family medical history. No Pertinent Family Hx, Other Conditions/Hx SOCIAL HISTORY: -DENIES SMOKING -DENIES DRUG USE -OCCASIONAL ALCOHOL USE PAST SURGICAL HISTORY: -MULTIPLE ABDOMINAL SURGERIES FOR BOWEL OBSTRUCTIONS, CHRONIC ABDOMINAL WOUNDS, BOWEL PERFORATION -PERMANENT ILEOSTOMY/COLOSTOMY FOR BOWEL PERFORATION -PERMANENT SUPRAPUBIC CATHETER -TOLL GATE KEEPER SHUNT FOR HYDROCEPHALUS - Review of Systems Constitutional: No chills; fever, malaise, weakness EENTM: No hearing loss, No hoarseness, No throat pain Respiratory: No cough, No dyspnea on exertion, No short of breath Cardiovascular: No edema, No palpitations Gastrointestinal: No abdominal pain, No loss of appetite, No nausea, No vomiting Genitourinary: other (suprapubic catheter) Musculoskeletal: no symptoms reported Skin: no symptoms reported Psychiatric/Neurological: Denies Anxiety, Denies Depressed; Weakness, Other (confusion) All Other Systems Reviewed Negative Unless Noted: Yes Physical Exam Vital Signs Vital Signs - First Documented 06/14/22 06/14/22 06/14/22 14:17 14:24 15:02 Temp 38.9 Pulse 98 Resp 20 B/P (MAP) 102/61 (75) Pulse Ox 92 O2 Delivery Room Air O2 Flow Rate 2.00 Capillary Refill : NONE Height, Weight, BMI Height: 5'4.00" Weight: 278lbs. 11.2oz. [id number]; 55.29 BMI Method:Stated General Appearance: No Apparent Distress, WD/WN HEENT: PERRL/EOMI, Pharynx Normal Neck: Full Range of Motion, Non Tender, Supple Respiratory: Chest Non Tender, Lungs Clear, Normal Breath Sounds, No Accessory Muscle Use, No Respiratory Distress Cardiovascular: Regular Rate, Rhythm Gastrointestinal: Normal Bowel Sounds, Non Tender, Soft Rectal: Deferred Extremity: Normal Capillary Refill, Non Tender, No Calf Tenderness, No Pedal Edema Neurologic/Psychiatric: Alert, Other (oriented to self) Skin: Normal Color, Warm/Dry Lymphatic: No Adenopathy Assessment/Plan Assessment and Plan Acute renal failure Acute Urinary Tract infection Chronic Urinary retention with Suprapubic Catheter in place Colostomy status Paraplegia Spinabifida Hypertension Neuropathy Gastroparesis Chronic Seizure Disorder Morbid Obesity Anemia Leukocytosis Chronic Depression and Anxiety GERD Acute renal failure with Acute Urinary Tract infection Chronic Urinary retention with Suprapubic Catheter in place - pt is status post replacement of Catheter in the past week with urinary retention as a result of delayed placement of catheter - this likely let to current infection - pt on IV antibiotics - will wait on culture report. 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 Yin - pt on lovenox Neuropathy - resume gabapentin Gastroparesis - monitor symptoms, restart low dose reglan once medication reconciled. Chronic Seizure Disorder - check keppra level, resume medication to prevent recurrent seizures Morbid Obesity Anemia - monitor labs - pt on routine iron supplementation Leukocytosis - should improve with hydration and treatment of infection Chronic Depression and Anxiety - resume cymbalta GERD - resume ppi dvt prohpylaxis with scd's and lovenox gi prophylaxis with ppi Admission Diagnosis Acute renal failure Acute Urinary Tract infection Chronic Urinary retention with Suprapubic Catheter in place Colostomy status Paraplegia Spinabifida Hypertension Neuropathy Gastroparesis Chronic Seizure Disorder Morbid Obesity Anemia Leukocytosis Chronic Depression and Anxiety GERD Admission Status: Inpatient Order (span 2 midnights) Reason for Inpatient Admission: inpt admission for urinary tract infection - in a complicated case of pt with multiple co-morbid diseases - will require at least 3-4 days in the hospital MIRIAM NUÑEZ MD Jun 15, 2022 08:46
[2022-06-15] MEDS ORDERED: DULoxetine 30 MG (CYMBALTA) CAP PO SCH (09:30)
--- NOTE | 2022-06-15 09:53 | Consultation-Cardiology ---
HPI-Cardiology Cardiology Consultation Date of Consultation 06/15/22 Date of Admission Time Seen by Provider: 09:48 Indication: Chest pain HPI 36-year-old gentleman with history of spina bifida, patient is a [facility] resident, paraplegic. Admitted for fever and urinary tract infection, had troponin level evaluated and appeared to be elevated. Patient reported occasional episodes of chest pain on and off. No shortness of breath. No palpitation. No syncope or near syncopal episodes. No known previous cardiac issues Home Medications & Allergies Allergies: Coded Allergies: latex (Verified Allergy, Unknown, 09/06/18) Home Medication List Reviewed: Yes LOR-Cdcbaz-Lkxlpn Hx Patient Social History Marital Status: single Employed/Student: unemployed 2nd Hand Smoke Exposure: No Recent Hopitalizations: No Alcohol Use?: Yes Immunizations Up To Date Tetanus Booster (TDap): Unknown Date of Influenza Vaccine: Feb 14, 2021 Past Medical History Discussed below Family Medical History Significant Family History: No Pertinent Family Hx, Other Conditions/Hx Family History: Patient reports no known family medical history. Review of Systems-General Review of Systems Constitutional: see HPI, fever, malaise, weakness EENTM: see HPI Respiratory: see HPI, cough Cardiovascular: see HPI, chest pain Gastrointestinal: see HPI Genitourinary: see HPI Musculoskeletal: see HPI Skin: see HPI Psychiatric/Neurological: See HPI Reviewed Test Results Reviewed Test Results Lab Laboratory Tests Test 06/14/22 14:32 06/14/22 14:38 06/14/22 15:40 06/14/22 19:02 Range/Units Influenza Type A (RT-PCR) Not Detected Not Detecte Influenza Type B (RT-PCR) Not Detected Not Detecte SARS-CoV-2 RNA (RT-PCR) Not Detected Not Detecte Urine Color YELLOW Urine Clarity CLOUDY Urine pH 5.5 5-9 Urine Specific Burt 1.020 1.016-1.022 Urine Protein 2+ H NEGATIVE Urine Glucose (UA) NEGATIVE NEGATIVE Urine Ketones NEGATIVE NEGATIVE Urine Nitrite NEGATIVE NEGATIVE Urine Bilirubin NEGATIVE NEGATIVE Urine Urobilinogen 0.2 < = 1.0 MG/DL Urine Leukocyte Esterase 3+ H NEGATIVE Urine RBC (Auto) 2+ H NEGATIVE Urine RBC 25-50 H /HPF Urine WBC >100 H /HPF Urine Squamous Epithelial Cells 10-25 H /HPF Urine Crystals PRESENT H /LPF Urine Amorphous Sediment MOD ANNALISA URATES H /LPF Urine Bacteria MODERATE H /HPF Urine Casts NONE /LPF Urine Mucus SMALL H /LPF Urine Culture Indicated CULTURE PENDING White Blood Count 12.9 H 4.3-11.0 10^3/uL Red Blood Count 4.38 4.30-5.52 10^6/uL Hemoglobin 12.5 L 13.3-17.7 g/dL Hematocrit 38 L 40-54 % Mean Corpuscular Volume 87 80-99 fL Mean Corpuscular Hemoglobin 29 25-34 pg Mean Corpuscular Hemoglobin Concent 33 32-36 g/dL Red Cell Distribution Width 14.2 10.0-14.5 % Platelet Count 214 130-400 10^3/uL Mean Platelet Volume 9.8 9.0-12.2 fL Immature Granulocyte % (Auto) 1 % Neutrophils (%) (Auto) 80 H 42-75 % Lymphocytes (%) (Auto) 11 L 12-44 % Monocytes (%) (Auto) 8 0-12 % Eosinophils (%) (Auto) 0 0-10 % Basophils (%) (Auto) 0 0-10 % Neutrophils # (Auto) 10.4 H 1.8-7.8 X 10^3 Lymphocytes # (Auto) 1.4 1.0-4.0 X 10^3 Monocytes # (Auto) 1.0 0.0-1.0 X 10^3 Eosinophils # (Auto) 0.0 0.0-0.3 10^3/uL Basophils # (Auto) 0.0 0.0-0.1 10^3/uL Immature Granulocyte # (Auto) 0.1 0.0-0.1 10^3/uL Erythrocyte Sedimentation Rate 89 H 0-15 MM/HR Prothrombin Time 14.3 12.2-14.7 SEC INR Comment 1.1 0.8-1.4 Activated Partial Thromboplast Time 38 H 24-35 SEC D-Dimer 0.79 H 0.00-0.49 UG/ML Sodium Level 129 L 135-145 MMOL/L Potassium Level 4.3 3.6-5.0 MMOL/L Chloride Level 99 98-107 MMOL/L Carbon Dioxide Level 17 L 21-32 MMOL/L Anion Gap 13 5-14 MMOL/L Blood Urea Nitrogen 35 H 7-18 MG/DL Creatinine 2.79 H 0.60-1.30 MG/DL Estimat Glomerular Filtration Rate 30 BUN/Creatinine Ratio 13 Glucose Level 136 H 70-105 MG/DL Lactic Acid Level 1.30 0.50-2.00 MMOL/L Calcium Level 8.9 8.5-10.1 MG/DL Corrected Calcium 9.5 8.5-10.1 MG/DL Magnesium Level 2.0 1.6-2.4 MG/DL Total Bilirubin 0.4 0.1-1.0 MG/DL Aspartate Amino Transf (AST/SGOT) 32 5-34 U/L Alanine Aminotransferase (ALT/SGPT) 40 0-55 U/L Alkaline Phosphatase 86 40-136 U/L Myoglobin 129.7 H 10.0-92.0 NG/ML Troponin I 0.084 H 0.086 H <0.028 NG/ML C-Reactive Protein High Sensitivity 34.90 H 0.00-0.50 MG/DL B-Type Natriuretic Peptide 55.8 <100.0 PG/ML Total Protein 7.0 6.4-8.2 GM/DL Albumin 3.3 3.2-4.5 GM/DL Amylase Level 46 25-125 U/L Lipase 40 8-78 U/L Test 06/14/22 21:24 06/14/22 21:53 06/15/22 05:20 Range/Units Glucometer 125 H 70-110 MG/DL Troponin I 0.070 H <0.028 NG/ML White Blood Count 7.6 4.3-11.0 10^3/uL Red Blood Count 3.76 L 4.30-5.52 10^6/uL Hemoglobin 10.8 L 13.3-17.7 g/dL Hematocrit 33 L 40-54 % Mean Corpuscular Volume 88 80-99 fL Mean Corpuscular Hemoglobin 29 25-34 pg Mean Corpuscular Hemoglobin Concent 33 32-36 g/dL Red Cell Distribution Width 14.1 10.0-14.5 % Platelet Count 157 130-400 10^3/uL Mean Platelet Volume 10.2 9.0-12.2 fL Immature Granulocyte % (Auto) 1 % Neutrophils (%) (Auto) 78 H 42-75 % Lymphocytes (%) (Auto) 10 L 12-44 % Monocytes (%) (Auto) 9 0-12 % Eosinophils (%) (Auto) 2 0-10 % Basophils (%) (Auto) 0 0-10 % Neutrophils # (Auto) 5.9 1.8-7.8 10^3/uL Lymphocytes # (Auto) 0.8 L 1.0-4.0 10^3/uL Monocytes # (Auto) 0.7 0.0-1.0 10^3/uL Eosinophils # (Auto) 0.1 0.0-0.3 10^3/uL Basophils # (Auto) 0.0 0.0-0.1 10^3/uL Immature Granulocyte # (Auto) 0.1 0.0-0.1 10^3/uL Sodium Level 135 135-145 MMOL/L Potassium Level 4.5 3.6-5.0 MMOL/L Chloride Level 107 98-107 MMOL/L Carbon Dioxide Level 17 L 21-32 MMOL/L Anion Gap 11 5-14 MMOL/L Blood Urea Nitrogen 35 H 7-18 MG/DL Creatinine 2.43 H 0.60-1.30 MG/DL Estimat Glomerular Filtration Rate 35 BUN/Creatinine Ratio 14 Glucose Level 184 H 70-105 MG/DL Calcium Level 8.3 L 8.5-10.1 MG/DL Corrected Calcium 9.3 8.5-10.1 MG/DL Total Bilirubin 0.2 0.1-1.0 MG/DL Aspartate Amino Transf (AST/SGOT) 18 5-34 U/L Alanine Aminotransferase (ALT/SGPT) 32 0-55 U/L Alkaline Phosphatase 79 40-136 U/L Total Protein 6.1 L 6.4-8.2 GM/DL Albumin 2.8 L 3.2-4.5 GM/DL Physical Exam Physical Exam Vital Signs Vital Signs - First Documented 06/14/22 06/14/22 06/14/22 14:17 14:24 15:02 Temp 38.9 Pulse 98 Resp 20 B/P (MAP) 102/61 (75) Pulse Ox 92 O2 Delivery Room Air O2 Flow Rate 2.00 Capillary Refill : NONE Height, Weight, BMI Height: 5'4.00" Weight: 278lbs. 11.2oz. 126.384230cq; 55.29 BMI Method:Stated General Appearance: No Apparent Distress, Obese HEENT: PERRL/EOMI Neck: Normal Inspection Respiratory: Normal Breath Sounds, No Accessory Muscle Use, No Respiratory Distress Cardiovascular: Regular Rate, Rhythm Gastrointestinal: Non Tender, Soft, Other (COLOSTOMY IN RIGHT MID ABDOMEN; SUPRAPUBIC CATH IN PLACE. NO SIGNS OF INFECTION OR BLEEDING ) Extremity: Normal Capillary Refill Neurologic/Psychiatric: Alert, Other (PT IS NOT WANTING TO TALK ON ARRIVAL. ANXIOUS ABOUT IV STICKS AND IS FOCUSED ON THAT ON ARRIVAL; PARAPLEGIA. ) Skin: Normal Color, Warm/Dry; No Rash A/P-Cardiology Admission Diagnosis Chest pain Type II myocardial infarction UTI Acute renal failure Assessment/Plan Urinary tract infection, status post recent placement of suprapubic catheter Receiving antibiotics. Managed by medical team Chest pain, minimal elevation in troponin, type II myocardial infarction. Probably secondary to renal failure and left ventricular hypertrophy. EKG did not show any acute changes. Troponin level is flat. Continue to monitor at this point. Conservative management is recommended 2D echo was done on June 15, 2022 showing moderate LVH, EF 55 to 60%, grade 1 diastolic dysfunction, PA pressure 25 to 30 mmHg. Acute on chronic renal failure, receiving IV fluid, monitor renal function Hypertension, controlled, monitor blood pressure Diabetes mellitus, managed by primary care physician Spina bifida, paraplegia. BECKY GARCIA MD Jun 15, 2022 09:53
[2022-06-15] MEDS: PANTOPRAZOLE 40 MG (PROTONIX) TAB PO SCH (10:53)
[2022-06-15] MEDS ORDERED: MENT118G TP (11:23)
[2022-06-15] MEDS ORDERED: LOSA100T57 PO (11:23)
[2022-06-15] MEDS ORDERED: METO5TAB2 PO (11:23)
[2022-06-15] MEDS ORDERED: ONDA-105 PO (11:23)
[2022-06-15] MEDS ORDERED: PECT2.8L4 MM (11:23)
[2022-06-15] MEDS ORDERED: [UNRECOGNIZED DRUG - CODE] TP (11:23)
[2022-06-15] MEDS ORDERED: MICO85PO4 TP (11:23)
[2022-06-15] MEDS ORDERED: D ME PO (11:23)
[2022-06-15] MEDS ORDERED: TRZ50T PO (11:23)
[2022-06-15] MEDS ORDERED: ALPR0.5T7 PO (11:23)
[2022-06-15] MEDS ORDERED: OLIV30OI OU (11:23)
[2022-06-15] MEDS ORDERED: GABA800T10 PO (11:23)
[2022-06-15] MEDS ORDERED: DICL100G13 TP ×2 (11:23)
[2022-06-15] MEDS ORDERED: ACHD5005 PO ×2 (11:23)
[2022-06-15] MEDS ORDERED: ACET-2267 PO (11:23)
[2022-06-15] MEDS ORDERED: AMT10T PO (11:23)
[2022-06-15] MEDS ORDERED: [UNRECOGNIZED DRUG - OTHER] PO (11:23)
[2022-06-15] MEDS ORDERED: SIME125C PO (11:23)
[2022-06-15] MEDS ORDERED: SULF1TAB38 PO (11:23)
[2022-06-15] MEDS ORDERED: FERR-74 PO (11:23)
[2022-06-15] MEDS ORDERED: HYDR-3923 PO (11:23)
[2022-06-15] MEDS ORDERED: HYDR453. TP (11:23)
[2022-06-15] MEDS ORDERED: METO50TA15 PO (11:23)
[2022-06-15 11:32] VITALS: BP 116/57
[2022-06-15] MEDS ORDERED: FLU QUADRIvalent (6 months+) 60 mcg/0.5 ml 2022-23 (Fluzone) IM ONE (12:00)
[2022-06-15] MEDS: DULoxetine 30 MG (CYMBALTA) CAP PO SCH (12:38)
[2022-06-15] MEDS: GABAPENTIN 400 MG (NEURONTIN) CAP PO SCH (12:39)
--- NOTE | 2022-06-15 12:53 | Diagnostic Imaging Report ---
INDICATION: Elevated D-dimer. Patient was administered 5.5 mCi technetium 99m MAA intravenously and imaging over the chest was performed from an anterior approach. Additional views cannot be obtained due to patient body habitus. Correlation is made with chest x-ray from earlier the same day. Both lungs show fairly homogeneous perfusion. Left base is somewhat obscured by the heart. No pleural-based perfusion defects are seen. IMPRESSION: Findings suggestive of low probability for pulmonary embolus. Dictated by: Dictated on workstation # [id number]
[2022-06-15 15:34] VITALS: BP 133/63
[2022-06-15] MEDS ORDERED: ENOXAPARIN 300 MG/3 ML (LOVENOX) MULTI-DOSE VIAL SQ SCH (18:00)
[2022-06-15 19:26] VITALS: BP 146/67
[2022-06-15] MEDS: ENOXAPARIN 60 MG/0.6 ML (LOVENOX) SYR SC SCH (21:27)
[2022-06-15 23:20] VITALS: BP 165/81
[2022-06-16] VITALS (7 sets, daily range): BP systolic 143–180; BP diastolic 65–95
[2022-06-16] MEDS: CEFEPIME 1,000 MG/NS 50 ML IVPB IV SCH ×8 (03:18→20:13)
[2022-06-16 05:37] LABS: BASOPHILS % (AUTO) 0 % (0-10); EOSINOPHILS # (AUTO) 0.1 10^3/uL (0.0-0.3); EOSINOPHILS % (AUTO) 3 % (0-10); HEMATOCRIT 30 % (40-54); HEMOGLOBIN 9.6 g/dL (13.3-17.7); LYMPHOCYTES # (AUTO) 0.9 10^3/uL (1.0-4.0); LYMPHOCYTES % (AUTO) 20 % (12-44); MEAN CORPUSCULAR HEMOGLOBIN 28 pg (25-34); MEAN CORPUSCULAR HGB CONC 32 g/dL (32-36); MEAN CORPUSCULAR VOLUME 89 fL (80-99); MONOCYTES # (AUTO) 0.5 10^3/uL (0.0-1.0); MONOCYTES % (AUTO) 11 % (0-12); NEUTROPHILS # (AUTO) 2.9 10^3/uL (1.8-7.8); NEUTROPHILS % (AUTO) 63 % (42-75); PLATELET COUNT 154 10^3/uL (130-400); WHITE BLOOD COUNT 4.5 10^3/uL (4.3-11.0)
[2022-06-16] MEDS: inSUlin ASPART (NovoLOG) 1 UNIT/0.01 ML (CHARGE PER UNIT) SC SCH ×4 (05:47→21:55)
[2022-06-16] MEDS: NITROGLYCERIN 2% OINT 1 GM UNIT DOSE PACKET TOP SCH ×4 (05:50→23:42)
[2022-06-16] MEDS: GABAPENTIN 400 MG (NEURONTIN) CAP PO SCH ×3 (05:51→13:41)
[2022-06-16] MEDS: NS IV 1000 ML 1,000 ML IV SCH ×3 (05:53→17:33)
[2022-06-16 06:56] LABS: ALBUMIN 2.6 GM/DL (3.2-4.5); POTASSIUM 4.5 MMOL/L (3.6-5.0)
[2022-06-16 06:57] LABS: CALCIUM 8.5 MG/DL (8.5-10.1)
[2022-06-16 07:00] LABS: BILIRUBIN,TOTAL 0.2 MG/DL (0.1-1.0)
[2022-06-16 07:02] LABS: CREATININE SERUM 1.42 MG/DL (0.60-1.30)
[2022-06-16] MEDS: PANTOPRAZOLE 40 MG (PROTONIX) TAB PO SCH ×3 (08:22→20:13)
[2022-06-16] MEDS: DULoxetine 30 MG (CYMBALTA) CAP PO SCH (08:22)
--- NOTE | 2022-06-16 08:35 | Progress Note ---
Subjective Subjective Date Seen by Provider: Jun 16, 2022 Time Seen by Provider: 08:45 Jon reports that he did not recall this publications writer seeing him yesterday morning. He states that he is fatigued, but feels better today - he ate breakfast, slept okay last night. He denies chest pain, shortness of breath, or other acute concerns. Review of Systems General: No Chills; Fatigue, Malaise Pulmonary: No Dyspnea, No Cough Cardiovascular: No: Chest Pain, Palpitations Gastrointestinal: No: Nausea, Abdominal Pain Genitourinary: Other (suprapubic catheter in place) Neurological: Weakness, Confusion All Other Systems Reviewed All Other Systems Reviewed: Yes Objective Exam Vital Signs Vital Signs Date Time Temp Pulse Resp B/P (MAP) Pulse Ox O2 Delivery O2 Flow Rate FiO2 06/16/22 08:00 96 Nasal Cannula 2.00 06/16/22 07:26 158/82 (107) 06/16/22 07:23 107 06/16/22 07:01 36.1 107 20 180/95 (123) 96 Nasal Cannula 2.00 06/16/22 03:28 36.3 106 20 143/92 (109) 95 Nasal Cannula 2.00 2.00 06/16/22 01:00 104 06/15/22 23:20 36.8 104 20 165/81 (109) 98 Nasal Cannula 2.00 2.00 06/15/22 20:00 Nasal Cannula 3.00 06/15/22 19:39 Nasal Cannula 2.00 06/15/22 19:38 Nasal Cannula 3.00 06/15/22 19:26 37.2 107 20 146/67 (93) 97 Nasal Cannula 3.00 06/15/22 19:00 107 06/15/22 15:34 36.9 96 20 133/63 (86) 96 Nasal Cannula 3.00 06/15/22 12:35 100 06/15/22 11:32 36.6 103 21 116/57 (76) 96 Nasal Cannula 3.00 I & O 06/16/22 07:00 Intake Total 5080 ml Output Total 5800 ml Balance -720 ml General Appearance: No Apparent Distress, Obese HEENT: PERRL/EOMI Neck: Normal Inspection Respiratory: Chest Non Tender, Lungs Clear, Normal Breath Sounds, No Accessory Muscle Use, No Respiratory Distress Cardiovascular: Regular Rate, Rhythm Gastrointestinal: Normal Bowel Sounds, Non Tender, Soft, Other (COLOSTOMY IN RIGHT MID ABDOMEN; SUPRAPUBIC CATH IN PLACE. NO SIGNS OF INFECTION OR BLEEDING ) Extremity: Normal Capillary Refill Neurologic/Psychiatric: Alert, Oriented x3, Other (initially flat affect, improved once pt recognized this publications writer) Skin: Normal Color, Warm/Dry; No Rash Results Lab Laboratory Tests 06/15/22 11:24: Glucometer 186H 06/15/22 15:37: Glucometer 145H 06/15/22 20:13: Glucometer 124H 06/16/22 05:02: Glucometer 112H 06/16/22 05:05: White Blood Count 4.5, Red Blood Count 3.42L, Hemoglobin 9.6L, Hematocrit 30L, Mean Corpuscular Volume 89, Mean Corpuscular Hemoglobin 28, Mean Corpuscular Hemoglobin Concent 32, Red Cell Distribution Width 14.3, Platelet Count 154, Mean Platelet Volume 10.0, Immature Granulocyte % (Auto) 2, Neutrophils (%) (Auto) 63, Lymphocytes (%) (Auto) 20, Monocytes (%) (Auto) 11, Eosinophils (%) (Auto) 3, Basophils (%) (Auto) 0, Neutrophils # (Auto) 2.9, Lymphocytes # (Auto) 0.9L, Monocytes # (Auto) 0.5, Eosinophils # (Auto) 0.1, Basophils # (Auto) 0.0, Immature Granulocyte # (Auto) 0.1 06/16/22 06:37: Sodium Level 144, Potassium Level 4.5, Chloride Level 119H, Carbon Dioxide Level 17L, Anion Gap 8, Blood Urea Nitrogen 21H, Creatinine 1.42H, Estimat Glomerular Filtration Rate 66, BUN/Creatinine Ratio 15, Glucose Level 111H, Calcium Level 8.5, Corrected Calcium 9.6, Total Bilirubin 0.2, Aspartate Amino Transf (AST/SGOT) 10, Alanine Aminotransferase (ALT/SGPT) 28, Alkaline Phosphatase 77, Total Protein 6.0L, Albumin 2.6L Microbiology 06/14/22 Blood Culture - Preliminary, Resulted No growth 06/14/22 Urine Culture - Preliminary, Resulted Escherichia coli Strep agalactiae Group B See Comments Assessment/Plan Assessment/Plan Assessment and Plan Acute renal failure Acute Urinary Tract infection Chronic Urinary retention with Suprapubic Catheter in place Colostomy status Paraplegia Spinabifida Hypertension Neuropathy Gastroparesis Chronic Seizure Disorder Morbid Obesity Anemia Leukocytosis Chronic Depression and Anxiety GERD Acute renal failure with Acute Urinary Tract infection Chronic Urinary retention with Suprapubic Catheter in place - pt is status post replacement of Catheter in the past week with urinary retention as a result of delayed placement of catheter - this likely let to current infection - pt on IV antibiotics - will wait on culture report. 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 Yin - pt on lovenox Neuropathy - resumed gabapentin Gastroparesis - monitor symptoms, restarted low dose Reglan, monitor symptoms Chronic Seizure Disorder - checked keppra level, resumed medication to prevent recurrent seizures Morbid Obesity Anemia - monitor labs - pt on routine iron supplementation Leukocytosis - improved with hydration and treatment of infection Chronic Depression and Anxiety - resumed cymbalta GERD - resumed ppi dvt prohpylaxis with scd's and lovenox gi prophylaxis with ppi MIRIAM SIERRA MD Jun 16, 2022 08:35
--- NOTE | 2022-06-16 08:47 | Diagnostic Imaging Report ---
INDICATION: Sepsis. Frontal chest obtained at 5:47 a.m. compared to 06/15/2022 FINDINGS: There is mild cardiomegaly. There is poor inspiration. There is no focal infiltrate or pneumothorax or pleural fluid. IMPRESSION: Poor inspiration with mild cardiomegaly and no acute pulmonary infiltrate. Dictated by: Dictated on workstation # [id number]
[2022-06-16] MEDS: METOCLOPRAMIDE 5 MG (REGLAN) TAB PO SCH ×2 (09:12→20:13)
[2022-06-16] MEDS: hydrALAZINE (APRESOLINE) 25 MG TAB PO SCH ×3 (09:12→20:15)
[2022-06-16] MEDS: ALLOPURINOL 100 MG (ZYLOPRIM) TAB PO SCH (09:12)
[2022-06-16] MEDS: ENOXAPARIN 60 MG/0.6 ML (LOVENOX) SYR SC SCH ×2 (09:12→21:20)
[2022-06-16] MEDS: MICONAZOLE 2% POWDER (DESENEX AF) 90 GM TP SCH ×2 (09:13→20:14)
[2022-06-16] MEDS: DICLOFENAC 1% GEL 100 GM (VOLTAREN) TUBE TP SCH ×3 (09:13→20:14)
[2022-06-16] MEDS: HYDROcodone/APAP 5 MG/325 MG (LORTAB) TAB PO PRN (11:24)
--- NOTE | 2022-06-16 12:30 | Cardiology Progress Note ---
Subjective Date Seen by Provider: Jun 16, 2022 Time Seen by Provider: 12:28 Subjective/Events-last exam Patient was seen at bedside, laying down comfortably, still having mild chest discomfort Review of Systems General: No Chills, No Night Sweats; Fatigue; No Malaise, No Appetite, No Other HEENT: No Head Aches, No Visual Changes, No Eye Pain, No Ear Pain, No Dysphas ia, No Sinus Congestion, No Post Nasal Drip, No Sore Throat, No Other Pulmonary: Dyspnea; No Cough, No Pleuritic Chest Pain, No Other Cardiovascular: No: Chest Pain, Palpitations, Orthopnea, Paroxysmal Noc. Dyspnea, Edema, Lt Headedness, Other Focused Exam Lactate Level 06/14/22 15:40: Lactic Acid Level 1.30 Time of Focused Exam: 16:10 Objective-Cardiology Exam Last Set of Vital Signs Vital Signs 06/16/22 06/16/22 11:11 11:13 Temp 36.6 Pulse 108 Resp 18 B/P (MAP) 164/88 (113) Pulse Ox 98 O2 Delivery Nasal Cannula O2 Flow Rate 2.00 I&O Intake and Output 06/16/22 00:00 Intake Total 5780 ml Output Total 6150 ml Balance -370 ml Intake Oral 3680 ml IV Total 2100 ml Output Urine Total 5850 ml Stool Total 300 ml # Bowel Movements 3 General: Alert, Oriented X3, Cooperative HEENT: Atraumatic, PERRLA Neck: Supple, No JVD Lungs: Clear to Auscultation Heart: Regular Rate, Normal S1, Normal S2 Abdomen: Normal Bowel Sounds Extremities: No Clubbing, No Cyanosis Skin: No Rashes, No Breakdown Neuro: Normal Speech Psych/Mental Status: Mood NL Results Lab Laboratory Tests 06/16/22 05:05 06/16/22 06:37 A/P-Cardiology Admission Diagnosis Chest pain Type II myocardial infarction UTI Acute renal failure Assessment/Plan Urinary tract infection, status post recent placement of suprapubic catheter Receiving antibiotics. Managed by medical team Chest pain, minimal elevation in troponin, type II myocardial infarction. Probably secondary to renal failure and left ventricular hypertrophy. EKG did not show any acute changes. Troponin level is flat. Continue to monitor at this point. Conservative m anagement is recommended 2D echo was done on June 15, 2022 showing moderate LVH, EF 55 to 60%, grade 1 diastolic dysfunction, PA pressure 25 to 30 mmHg. Acute on chronic renal failure, receiving IV fluid, monitor renal function Hypertension, controlled, monitor blood pressure Diabetes mellitus, managed by primary care physician Spina bifida, paraplegia. BECKY GARCIA MD Jun 16, 2022 12:30
[2022-06-16] MEDS: LACTOBACILLUS ACIDOPHILUS (PROBIOTIC) CAPSULE PO SCH (13:41)
[2022-06-16] MEDS: AMITRIPTYLINE 10 MG (ELAVIL) TAB PO SCH (17:34)
--- NOTE | 2022-06-16 18:24 | Physician Query Clarification ---
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 Shelli Deleon? 1. Yes; will document Sepsis, present on admission in the Progress Notes 2. No; will continue current documentation in the Progress Notes 3. Other; will document explanation of clinical findings 4. Clinically undetermined; no explanation for clinical findings Please clarify and document your clinical opinion in the Progress Notes and Discharge Summary including the definitive and/or presumptive diagnosis, (suspected or probable), related to the above clinical findings. Please include clinical findings supporting your diagnosis. In responding to this query, please exercise your independent professional judgment. The purpose of this communication is to more accurately reflect the complexity of your patients condition. The fact that a question is asked does not imply that any particular answer is desired or expected. Thank you for timely response to this clarification. Antonella Bteancur, MSN, RN Clinical Military Logistics Specialist [phone] [email or web address] PHYSICIAN RESPONSE: Based on the clinical findings in the record, please respond to the query above on this document as an addendum. Physician Response: Physician Response yes If you have questions please contact: Substitute School Nurse: Ext: Thank you for your time and cooperation. Clinical Military Logistics Specialist/Substitute School Nurse This is a permanent part of the medical record ANTONELLA BETANCUR Jun 16, 2022 18:24 MIRIAM SIERRA MD Jun 18, 2022 08:57
--- NOTE | 2022-06-16 18:34 | Physician Query Clarification ---
Physician Query-General Query to Physician: The medical record reflects the following clinical scenario: The patient, in the setting of History/Risk factors, Renal Failure, UTI with fever lethargy Clinical Findings Per Dr. Yin " Chest pain, minimal elevation in troponin, type II myocardial infarction". Troponin I 0.084, 0.086, then 0.070, Myoglobin 129, "EKG did not show any acute changes". Treatment Lovenox subcu, Nitro-Bid ointment, nitroglycerin SL as needed, Cardiology consult plan for conservative management at this time Question: Do you agree with the impression of Type II Myocardial Infarction per Dr. Cookie Yin? 1. Yes; will document Type II Myocardial Infarction in the Progress Notes, present on admission 2. No; will continue current documentation in the Progress Notes 3. Other; will document explanation of clinical findings 4. Clinically undetermined; no explanation for clinical findings Please clarify and document your clinical opinion in the Progress Notes and Discharge Summary including the definitive and/or presumptive diagnosis, (suspected or probable), related to the above clinical findings. Please include clinical findings supporting your diagnosis. In responding to this query, please exercise your independent professional judgment. The purpose of this communication is to more accurately reflect the complexity of your patients condition. The fact that a question is asked does not imply that any particular answer is desired or expected. Thank you for timely response to this clarification. Antonella Wellington, MSN, RN Clinical Inpatient Auditor [phone] [email or web address] PHYSICIAN RESPONSE: Based on the clinical findings in the record, please respond to the query above on this document as an addendum. Physician Response: Physician Response yes If you have questions please contact: [employer]: Ext: Thank you for your time and cooperation. Clinical Inpatient Auditor/[employer] This is a permanent part of the medical record* ANTONELLA WELLINGTON Jun 16, 2022 18:34 MIRIAM SIERRA MD Jun 18, 2022 08:57
[2022-06-16] MEDS: ACETAMINOPHEN 500 MG TAB (TYLENOL) PO SCH (20:13)
[2022-06-17] VITALS (7 sets, daily range): BP systolic 155–201; BP diastolic 70–114
[2022-06-17] MEDS: CEFEPIME 1,000 MG/NS 50 ML IVPB IV SCH ×8 (02:26→19:51)
[2022-06-17] MEDS: NS IV 1000 ML 1,000 ML IV SCH ×3 (02:26→09:12)
[2022-06-17 05:35] LABS: BASOPHILS % (AUTO) 1 % (0-10); EOSINOPHILS # (AUTO) 0.1 10^3/uL (0.0-0.3); EOSINOPHILS % (AUTO) 4 % (0-10); HEMATOCRIT 30 % (40-54); HEMOGLOBIN 9.7 g/dL (13.3-17.7); LYMPHOCYTES # (AUTO) 0.8 10^3/uL (1.0-4.0); LYMPHOCYTES % (AUTO) 23 % (12-44); MEAN CORPUSCULAR HEMOGLOBIN 28 pg (25-34); MEAN CORPUSCULAR HGB CONC 32 g/dL (32-36); MEAN CORPUSCULAR VOLUME 89 fL (80-99); MEAN PLATELET VOLUME 9.4 fL (9.0-12.2); MONOCYTES # (AUTO) 0.4 10^3/uL (0.0-1.0); MONOCYTES % (AUTO) 11 % (0-12); NEUTROPHILS # (AUTO) 2.1 10^3/uL (1.8-7.8); NEUTROPHILS % (AUTO) 59 % (42-75); PLATELET COUNT 162 10^3/uL (130-400); WHITE BLOOD COUNT 3.5 10^3/uL (4.3-11.0)
[2022-06-17 06:03] LABS: ALBUMIN 2.7 GM/DL (3.2-4.5); BILIRUBIN,TOTAL 0.2 MG/DL (0.1-1.0); CREATININE SERUM 1.26 MG/DL (0.60-1.30); TOTAL PROTEIN 6.2 GM/DL (6.4-8.2)
[2022-06-17] MEDS: GABAPENTIN 400 MG (NEURONTIN) CAP PO SCH ×3 (06:06→14:27)
[2022-06-17] MEDS: LACTOBACILLUS ACIDOPHILUS (PROBIOTIC) CAPSULE PO SCH ×2 (06:06→14:27)
[2022-06-17] MEDS: NITROGLYCERIN 2% OINT 1 GM UNIT DOSE PACKET TOP SCH ×2 (06:08→11:58)
[2022-06-17] MEDS: AMITRIPTYLINE 10 MG (ELAVIL) TAB PO SCH ×2 (06:08→18:16)
[2022-06-17] MEDS: inSUlin ASPART (NovoLOG) 1 UNIT/0.01 ML (CHARGE PER UNIT) SC SCH ×4 (06:20→20:58)
--- NOTE | 2022-06-17 07:24 | Diagnostic Imaging Report ---
CHEST 1 VIEW, AP/PA ONLY Indication: Sepsis Comparison: 06/16/2022 Findings: No focal airspace disease in the visualized lungs. No pleural effusion or pneumothorax. Normal cardiomediastinal silhouette. Impression: 1. No acute cardiopulmonary process by portable radiography. Dictated by: Dictated on workstation # [id number]
[2022-06-17] MEDS: PANTOPRAZOLE 40 MG (PROTONIX) TAB PO SCH ×3 (08:21→19:51)
[2022-06-17] MEDS: DULoxetine 30 MG (CYMBALTA) CAP PO SCH (08:21)
[2022-06-17] MEDS: METOCLOPRAMIDE 5 MG (REGLAN) TAB PO SCH ×2 (08:22→19:51)
[2022-06-17] MEDS: hydrALAZINE (APRESOLINE) 25 MG TAB PO SCH ×3 (08:22→19:52)
[2022-06-17] MEDS: ALLOPURINOL 100 MG (ZYLOPRIM) TAB PO SCH (08:22)
[2022-06-17] MEDS: ENOXAPARIN 60 MG/0.6 ML (LOVENOX) SYR SC SCH ×2 (08:22→21:13)
[2022-06-17] MEDS: MICONAZOLE 2% POWDER (DESENEX AF) 90 GM TP SCH ×2 (08:23→19:53)
[2022-06-17] MEDS: DICLOFENAC 1% GEL 100 GM (VOLTAREN) TUBE TP SCH ×3 (08:23→19:52)
--- NOTE | 2022-06-17 08:43 | Progress Note ---
Subjective Subjective Date Seen by Provider: Jun 17, 2022 Time Seen by Provider: 08:30 Pt is a 36 y/o male who is known to me from clinic. He was admitted with urinary tract infection, weakness, lethargy and recent urinary retention due to inability to replace suprapubic catheter. He reports that he is feeling fatigued, did not sleep well last night - has been napping off and on over the past day or so. His mom is in the room - reports that Jon's spouse has had covid fairly recently but Jon has never tested positive. Review of Systems General: No Chills, No Night Sweats; Fatigue, Malaise; No Appetite, No Other HEENT: No Head Aches, No Visual Changes, No Eye Pain, No Ear Pain, No Dysphasia, No Sinus Congestion, No Post Nasal Drip, No Sore Throat, No Other Pulmonary: Dyspnea, Cough; No Pleuritic Chest Pain, No Other Cardiovascular: No: Chest Pain, Palpitations, Orthopnea, Paroxysmal Noc. Dyspnea, Edema, Lt Headedness, Other Gastrointestinal: No: Nausea, Abdominal Pain Genitourinary: Other (suprapubic catheter in place) Neurological: Weakness, Confusion All Other Systems Reviewed All Other Systems Reviewed: Yes Objective Exam Vital Signs Vital Signs Date Time Temp Pulse Resp B/P (MAP) Pulse Ox O2 Delivery O2 Flow Rate FiO2 06/17/22 08:12 36.7 101 19 165/72 (103) 97 Nasal Cannula 3.00 06/17/22 07:21 Nasal Cannula 1.00 06/17/22 07:12 103 06/17/22 03:39 37.0 104 20 165/70 (101) 97 Nasal Cannula 1.00 1.00 06/17/22 01:00 111 06/16/22 23:20 37.0 104 20 170/65 (100) 97 Nasal Cannula 1.00 1.00 06/16/22 20:12 36.2 105 20 145/82 (103) 98 Nasal Cannula 1.00 06/16/22 20:10 Nasal Cannula 1.00 06/16/22 19:54 Nasal Cannula 1.00 06/16/22 19:44 98 Nasal Cannula 2.00 06/16/22 19:00 104 06/16/22 16:28 36.5 106 20 147/85 (105) 98 Nasal Cannula 2.00 06/16/22 13:10 107 06/16/22 11:13 Nasal Cannula 2.00 06/16/22 11:11 36.6 108 18 164/88 (113) 98 Nasal Cannula 2.00 I & O 06/17/22 07:00 Intake Total 3840 ml Output Total 8900 ml Balance -5060 ml General Appearance: No Apparent Distress, Obese HEENT: PERRL/EOMI Respiratory: Chest Non Tender, Lungs Clear, Normal Breath Sounds, No Accessory Muscle Use, No Respiratory Distress Cardiovascular: Regular Rate, Rhythm Gastrointestinal: Normal Bowel Sounds, Non Tender, Soft, Other (COLOSTOMY IN RIGHT MID ABDOMEN; SUPRAPUBIC CATH IN PLACE. NO SIGNS OF INFECTION OR BLEEDING ) Extremity: No Pedal Edema Neurologic/Psychiatric: Alert, Oriented x3, Other (fatigued, slower to answer questions compared to his usual demeanor/reactions) Skin: Normal Color, Warm/Dry; No Rash Lymphatic: No Adenopathy Results Lab Laboratory Tests 06/16/22 10:21: Glucometer 106 06/16/22 15:48: Glucometer 125H 06/16/22 20:37: Glucometer 104 06/17/22 05:08: White Blood Count 3.5L, Red Blood Count 3.43L, Hemoglobin 9.7L, Hematocrit 30L, Mean Corpuscular Volume 89, Mean Corpuscular Hemoglobin 28, Mean Corpuscular Hemoglobin Concent 32, Red Cell Distribution Width 14.0, Platelet Count 162, Mean Platelet Volume 9.4, Immature Granulocyte % (Auto) 3, Neutrophils (%) (Auto) 59, Lymphocytes (%) (Auto) 23, Monocytes (%) (Auto) 11, Eosinophils (%) (Auto) 4, Basophils (%) (Auto) 1, Neutrophils # (Auto) 2.1, Lymphocytes # (Auto) 0.8L, Monocytes # (Auto) 0.4, Eosinophils # (Auto) 0.1, Basophils # (Auto) 0.0, Immature Granulocyte # (Auto) 0.1, Sodium Level 145, Potassium Level 4.0, Chloride Level 119H, Carbon Dioxide Level 17L, Anion Gap 9, Blood Urea Nitrogen 16, Creatinine 1.26, Estimat Glomerular Filtration Rate 77, BUN/Creatinine Ratio 13, Glucose Level 106H, Calcium Level 9.0, Corrected Calcium 10.0, Total Bilirubin 0.2, Aspartate Amino Transf (AST/SGOT) 13, Alanine Aminotransferase (ALT/SGPT) 25, Alkaline Phosphatase 73, Total Protein 6.2L, Albumin 2.7L 06/17/22 05:43: Glucometer 92 Microbiology 06/14/22 Blood Culture - Preliminary, Resulted No growth 06/14/22 Urine Culture - Preliminary, Resulted Escherichia coli Strep agalactiae Group B See Comments Pseudomonas species Assessment/Plan Assessment/Plan Admission Dx Acute renal failure Acute Urinary Tract infection Chronic Urinary retention with Suprapubic Catheter in place Colostomy status Paraplegia Spinabifida Hypertension Neuropathy Gastroparesis Chronic Seizure Disorder Morbid Obesity Anemia Leukocytosis Chronic Depression and Anxiety GERD Assessment and Plan Acute renal failure Acute Urinary Tract infection with ecoli and pseudomonas Chronic Urinary retention with Suprapubic Catheter in place Colostomy status Paraplegia Spinabifida Hypertension Neuropathy Gastroparesis Chronic Seizure Disorder Morbid Obesity Anemia Leukocytosis Chronic Depression and Anxiety GERD Acute renal failure with Acute Urinary Tract infection with ecoli and pseudomonas Chronic Urinary retention with Suprapubic Catheter in place - pt is status post replacement of Catheter in the past week with urinary retention as a result of delayed placement of catheter - this likely let to current infection - pt on IV antibiotics Cefepime- will wait on culture report. 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 Yin - pt on lovenox Neuropathy - resumed gabapentin Gastroparesis - monitor symptoms, restarted low dose Reglan, monitor symptoms Chronic Seizure Disorder - checked keppra level, resumed medication to prevent recurrent seizures Morbid Obesity Anemia - monitor labs - pt on routine iron supplementation Leukocytosis - improved with hydration and treatment of infection Chronic Depression and Anxiety - resumed cymbalta GERD - resumed ppi Due to lethargy - and cough - recheck covid (there is an outbreak at the local nursing homes) dvt prohpylaxis with scd's and lovenox gi prophylaxis with ppi Admission Dx Acute renal failure Acute Urinary Tract infection Chronic Urinary retention with Suprapubic Catheter in place Colostomy status Paraplegia Spinabifida Hypertension Neuropathy Gastroparesis Chronic Seizure Disorder Morbid Obesity Anemia Leukocytosis Chronic Depression and Anxiety GERD Clinical Quality Measures Admission Status Admission Dx Acute renal failure Acute Urinary Tract infection Chronic Urinary retention with Suprapubic Catheter in place Colostomy status Paraplegia Spinabifida Hypertension Neuropathy Gastroparesis Chronic Seizure Disorder Morbid Obesity Anemia Leukocytosis Chronic Depression and Anxiety GERD MIRIAM SIERRA MD Jun 17, 2022 08:43
[2022-06-17] MEDS: LOSARTAN 100 MG (COZAAR) TABLET PO SCH (09:11)
--- NOTE | 2022-06-17 11:11 | Cardiology Progress Note ---
Subjective Date Seen by Provider: Jun 17, 2022 Time Seen by Provider: 08:50 Subjective/Events-last exam Patient is in bed, complaining of fatigue and loss of energy. Denies any chest pain Focused Exam Lactate Level 06/14/22 15:40: Lactic Acid Level 1.30 Time of Focused Exam: 16:10 Objective-Cardiology Exam Last Set of Vital Signs Vital Signs 06/17/22 06/17/22 08:12 11:46 Temp 36.3 Pulse 103 Resp 22 B/P (MAP) 180/92 (121) Pulse Ox 97 O2 Delivery Nasal Cannula O2 Flow Rate 3.00 I&O Intake and Output 06/17/22 00:00 Intake Total 4140 ml Output Total 8150 ml Balance -4010 ml Intake Oral 4140 ml Output Urine Total 7400 ml Stool Total 750 ml General: Alert, Oriented X3, Cooperative HEENT: Atraumatic, PERRLA Neck: Supple, No JVD Lungs: Clear to Auscultation Heart: Regular Rate, Normal S1, Normal S2 Abdomen: Normal Bowel Sounds Extremities: No Clubbing, No Cyanosis Skin: No Rashes, No Breakdown Neuro: Normal Speech Psych/Mental Status: Mood NL Results Lab Laboratory Tests 06/17/22 05:08 A/P-Cardiology Admission Diagnosis Chest pain Type II myocardial infarction UTI Acute renal failure Assessment/Plan Urinary tract infection, status post recent placement of suprapubic catheter Receiving antibiotics. Managed by medical team Chest pain, minimal elevation in troponin, type II myocardial infarction. Probably secondary to renal failure and left ventricular hypertrophy. EKG did not show any acute changes. Troponin level is flat. Continue to monitor at this point. Conservative manag ement is recommended 2D echo was done on June 15, 2022 showing moderate LVH, EF 55 to 60%, grade 1 diastolic dysfunction, PA pressure 25 to 30 mmHg. Acute on chronic renal failure, receiving IV fluid, monitor renal function Hypertension, mildly elevated. Home dose of losartan restarted this morning. I will increase beta neva and continue to monitor Sinus tachycardia, increase beta neva and continue to monitor. Diabetes mellitus, managed by primary care physician Spina bifida, paraplegia. Supervisory-Addendum Brief Supervisory Addendum Participated in pt care: history, MDM, physical Personally performed: exam, history, MDM Care discussed with: SUSHANT Results interpretation: Verified all documentation Notes: Patient was seen and evaluated with Danae, examination performed, management plan was discussed, agree with the current scribed note, I made few changes to the note using Italic font Patient was seen at bedside, laying down comfortably, feeling better No further episodes of chest pain I will DC Nitropatch. Okay for discharge and follow-up as an outpatient. DANAE FORD Jun 17, 2022 11:11 BECKY GARCIA MD Jun 17, 2022 13:17
[2022-06-17] MEDS: HYDROcodone/APAP 5 MG/325 MG (LORTAB) TAB PO PRN (11:58)
[2022-06-17] MEDS: meTOprolol TARTRATE 50 MG (LOPRESSOR) TAB PO SCH (19:51)
[2022-06-17] MEDS: ACETAMINOPHEN 500 MG TAB (TYLENOL) PO SCH (19:51)
[2022-06-17] MEDS ORDERED: hydrALAZINE (APRESOLINE) 25 MG TAB PO ONE (21:00)
[2022-06-18] VITALS (8 sets, daily range): BP systolic 163–199; BP diastolic 88–100
[2022-06-18] MEDS: NS IV 1000 ML 1,000 ML IV SCH ×2 (00:55→08:58)
[2022-06-18] MEDS: CEFEPIME 1,000 MG/NS 50 ML IVPB IV SCH ×2 (01:53)
[2022-06-18] MEDS ORDERED: hydrALAZINE (APRESOLINE) 25 MG TAB PO ONE ×2 (04:00→23:45)
[2022-06-18] MEDS: inSUlin ASPART (NovoLOG) 1 UNIT/0.01 ML (CHARGE PER UNIT) SC SCH ×4 (05:14→20:54)
[2022-06-18] MEDS: AMITRIPTYLINE 10 MG (ELAVIL) TAB PO SCH ×2 (05:17→18:10)
[2022-06-18] MEDS: GABAPENTIN 400 MG (NEURONTIN) CAP PO SCH ×5 (05:17→14:08)
[2022-06-18] MEDS: LACTOBACILLUS ACIDOPHILUS (PROBIOTIC) CAPSULE PO SCH ×2 (05:17→13:56)
--- NOTE | 2022-06-18 08:31 | Progress Note ---
Subjective Subjective Date Seen by Provider: Jun 18, 2022 Time Seen by Provider: 08:30 Pt is a 36 y/o male who is known to me from clinic. He was admitted with urinary tract infection, weakness, lethargy and recent urinary retention due to inability to replace suprapubic catheter. Jon states that he is tired, does not feel good, but feels better than on admission, in fact, he reports he does not remember being admitted to the hospital. Review of Systems General: No Chills, No Night Sweats; Fatigue, Malaise; No Appetite, No Other HEENT: No Head Aches, No Dysphasia, No Sinus Congestion Pulmonary: Dyspnea, Cough Cardiovascular: No: Chest Pain, Palpitations, Orthopnea, Edema Gastrointestinal: No: Nausea, Vomiting, Abdominal Pain Genitourinary: Other (suprapubic catheter in place) Neurological: Weakness; No: Confusion All Other Systems Reviewed All Other Systems Reviewed: Yes Objective Exam Vital Signs Vital Signs Date Time Temp Pulse Resp B/P (MAP) Pulse Ox O2 Delivery O2 Flow Rate FiO2 06/18/22 07:24 36.1 84 18 175/100 (125) 98 Nasal Cannula 1.00 06/18/22 07:07 82 06/18/22 05:15 77 170/88 (115) 06/18/22 03:48 36.2 75 20 199/98 (131) 98 Nasal Cannula 1.00 06/18/22 01:00 80 06/18/22 00:00 36.2 82 20 173/95 (121) 98 Nasal Cannula 1.00 06/17/22 22:54 97 Nasal Cannula 1.00 06/17/22 22:21 77 155/80 (105) 06/17/22 21:01 170/85 (113) 06/17/22 19:55 Nasal Cannula 1.00 06/17/22 19:36 36.8 84 20 195/100 (131) 98 Nasal Cannula 1.00 06/17/22 19:00 90 06/17/22 16:12 36.1 99 20 184/81 (115) 97 Nasal Cannula 3.00 06/17/22 13:14 103 06/17/22 11:46 36.3 103 22 180/92 (121) Nasal Cannula 3.00 I & O 06/18/22 07:00 Intake Total 2390 ml Output Total 6425 ml Balance -4035 ml General Appearance: No Apparent Distress, Obese HEENT: PERRL/EOMI Respiratory: Chest Non Tender, Lungs Clear, Normal Breath Sounds, No Accessory Muscle Use, No Respiratory Distress Cardiovascular: Regular Rate, Rhythm Gastrointestinal: Normal Bowel Sounds, Non Tender, Soft, Other (COLOSTOMY IN RIGHT MID ABDOMEN; SUPRAPUBIC CATH IN PLACE. NO SIGNS OF INFECTION OR BLEEDING ) Extremity: No Pedal Edema Neurologic/Psychiatric: Alert, Oriented x3, Other (fatigued, slower to answer questions compared to his usual demeanor/reactions) Skin: Normal Color, Warm/Dry; No Rash Lymphatic: No Adenopathy Results Lab Laboratory Tests 06/17/22 09:16: Influenza Type A (RT-PCR) Not Detected, Influenza Type B (RT-PCR) Not Detected, SARS-CoV-2 RNA (RT-PCR) Not Detected 06/17/22 11:13: Glucometer 102 06/17/22 20:53: Glucometer 100 06/18/22 05:13: Glucometer 97 Microbiology 06/14/22 Blood Culture - Preliminary, Resulted No growth 06/14/22 Urine Culture - Final, Complete Escherichia coli Strep agalactiae Group B See Comments Pseudomonas aeruginosa Assessment/Plan Assessment/Plan Admission Dx Acute renal failure Acute Urinary Tract infection Chronic Urinary retention with Suprapubic Catheter in place Colostomy status Paraplegia Spinabifida Hypertension Neuropathy Gastroparesis Chronic Seizure Disorder Morbid Obesity Anemia Leukocytosis Chronic Depression and Anxiety GERD Assessment and Plan Acute renal failure Acute Urinary Tract infection with ecoli and pseudomonas Chronic Urinary retention with Suprapubic Catheter in place Colostomy status Paraplegia Spinabifida Hypertension Neuropathy Gastroparesis Chronic Seizure Disorder Morbid Obesity Anemia Leukocytosis Chronic Depression and Anxiety GERD Acute renal failure with Acute Urinary Tract infection with ecoli and pseudomonas Chronic Urinary retention with Suprapubic Catheter in place - pt is status post replacement of Catheter in the past week with urinary retention as a result of delayed placement of catheter - this likely let to current infection - pt on IV antibiotics Cefepime- - STOPPING TODAY AND STARTING ON Levofloxacin as sensitivity profile showed that both ecoli and pseudomonas are sensitive and this can be given orally as outpatient on dc - renal failure now resolved stopping fluids today Colostomy status - supportive care 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 Yin - pt on lovenox Neuropathy - resumed gabapentin Gastroparesis - monitor symptoms, restarted low dose Reglan, monitor symptoms Chronic Seizure Disorder - checked keppra level, resumed medication to prevent recurrent seizures Morbid Obesity Anemia - monitor labs - pt on routine iron supplementation Leukocytosis - improved with hydration and treatment of infection Chronic Depression and Anxiety - resumed cymbalta GERD - resumed ppi Due to lethargy - and cough - rechecked covid (there is an outbreak at the local nursing homes) - negative dvt prohpylaxis with scd's and lovenox gi prophylaxis with ppi Admission Dx Acute renal failure Acute Urinary Tract infection Chronic Urinary retention with Suprapubic Catheter in place Colostomy status Paraplegia Spinabifida Hypertension Neuropathy Gastroparesis Chronic Seizure Disorder Morbid Obesity Anemia Leukocytosis Chronic Depression and Anxiety GERD Clinical Quality Measures Admission Status Admission Dx Acute renal failure Acute Urinary Tract infection Chronic Urinary retention with Suprapubic Catheter in place Colostomy status Paraplegia Spinabifida Hypertension Neuropathy Gastroparesis Chronic Seizure Disorder Morbid Obesity Anemia Leukocytosis Chronic Depression and Anxiety GERD MIRIAM SIERRA MD Jun 18, 2022 08:31
--- NOTE | 2022-06-18 08:46 | Cardiology Progress Note ---
Subjective Date Seen by Provider: Jun 18, 2022 Time Seen by Provider: 09:00 Subjective/Events-last exam Patient in bed, no new complaints. Focused Exam Time of Focused Exam: 16:10 Objective-Cardiology Exam Last Set of Vital Signs Vital Signs 06/18/22 11:36 Temp 36.6 Pulse 75 Resp 18 B/P (MAP) 163/88 (113) Pulse Ox 96 O2 Delivery Nasal Cannula O2 Flow Rate 1.00 I&O Intake and Output 06/18/22 00:00 Intake Total 2190 ml Output Total 7000 ml Balance -4810 ml Intake Oral 2140 ml IV Total 50 ml Output Urine Total 6400 ml Stool Total 600 ml General: Alert, Oriented X3, Cooperative HEENT: Atraumatic, PERRLA Neck: Supple, No JVD Lungs: Clear to Auscultation Heart: Regular Rate, Normal S1, Normal S2 Abdomen: Normal Bowel Sounds Extremities: No Clubbing, No Cyanosis Skin: No Rashes, No Breakdown Neuro: Normal Speech Psych/Mental Status: Mood NL A/P-Cardiology Admission Diagnosis Chest pain Type II myocardial infarction UTI Acute renal failure Assessment/Plan Urinary tract infection, status post recent placement of suprapubic catheter Receiving antibiotics. Managed by medical team Chest pain, minimal elevation in troponin, type II myocardial infarction. Probably secondary to renal failure and left ventricular hypertrophy. EKG did not show any acute changes. Troponin level is flat. Continue to monitor at this point. Conservative management is recommended 2D echo was done on June 15, 2022 showing moderate LVH, EF 55 to 60%, grade 1 diastolic dysfunction, PA pressure 25 to 30 mmHg. Acute on chronic renal failure, receiving IV fluid, monitor renal function Hypertension, mildly elevated. Amlodipine added, continue to monitor. Sinus tachycardia, improved after increasing beta neva, continue to monitor. Diabetes mellitus, managed by primary care physician Spina bifida, paraplegia. Supervisory-Addendum Brief Supervisory Addendum Participated in pt care: history, MDM, physical Personally performed: exam, history, MDM Care discussed with: SUSHANT Results interpretation: Verified all documentation Notes: Patient was seen and evaluated with Danae, examination performed, management plan was discussed, agree with the current scribed note, I made few changes to the note using Italic font Patient was seen at bedside, laying down comfortably, blood pressure is poorly controlled, added amlodipine Continue to monitor blood pressure Okay for discharge from cardiology standpoint DANAE FORD Jun 18, 2022 08:46 BECKY GARCIA MD Jun 18, 2022 12:27
[2022-06-18] MEDS: PANTOPRAZOLE 40 MG (PROTONIX) TAB PO SCH ×3 (08:51→20:53)
[2022-06-18] MEDS: ALLOPURINOL 100 MG (ZYLOPRIM) TAB PO SCH (08:51)
[2022-06-18] MEDS: LOSARTAN 100 MG (COZAAR) TABLET PO SCH (08:51)
[2022-06-18] MEDS: meTOprolol TARTRATE 50 MG (LOPRESSOR) TAB PO SCH ×2 (08:52→20:54)
[2022-06-18] MEDS: DULoxetine 30 MG (CYMBALTA) CAP PO SCH (08:52)
[2022-06-18] MEDS: hydrALAZINE (APRESOLINE) 25 MG TAB PO SCH ×3 (08:52→20:53)
[2022-06-18] MEDS: METOCLOPRAMIDE 5 MG (REGLAN) TAB PO SCH ×2 (08:52→20:54)
[2022-06-18] MEDS: MICONAZOLE 2% POWDER (DESENEX AF) 90 GM TP SCH ×2 (08:53→20:54)
[2022-06-18] MEDS ORDERED: amLODIPine 5 MG (NORVASC) TAB PO SCH (09:00)
[2022-06-18] MEDS: HYDROcodone/APAP 5 MG/325 MG (LORTAB) TAB PO PRN ×2 (09:01→23:47)
[2022-06-18] MEDS: DICLOFENAC 1% GEL 100 GM (VOLTAREN) TUBE TP SCH ×3 (13:57→20:54)
[2022-06-18] MEDS: ENOXAPARIN 60 MG/0.6 ML (LOVENOX) SYR SC SCH ×2 (13:57→21:03)
--- NOTE | 2022-06-18 17:44 | Diagnostic Imaging Report ---
INDICATION: Uncontrolled hypertension. COMPARISON: None. TECHNIQUE: Routine grayscale and color flow evaluation of the bilateral kidneys was performed. Duplex evaluation of both kidneys was also performed. FINDINGS: Performing cobbler upper reports limited exam due to patient body habitus and patient difficulty with breathing instructions. Right kidney measures 13.1 cm in length and left measures 11.6 cm. Cortical thickness and corticomedullary differentiation are maintained. Anechoic benign-appearing cyst is present within the inferior pole of the right kidney and measures 2.6 x 2.3 x 2.4 cm. There is nodular area within the mid region near the inferior pole of the left kidney that measures 3.9 x 2.1 x 3.3 cm and is concerning for potential solid mass. There is no evidence of calculus or hydronephrosis on either side. There is no ascites. Suprapubic catheter is in place. Note is made of cholelithiasis. Doppler evaluation of the renal arteries was also performed. On the right, main renal artery peak systolic velocities range from 53 to 73 cm/s. On the left, these range from 43 to 92 cm/s. Abdominal aorta peak systolic velocity measures 101 cm/s. Ratios are within normal limits. Peak systolic velocities show normal brisk upstroke. Arcuate artery resistive index on the right ranges from 0.57 to 0.68 and on the left from 0.53 to 0.71. IMPRESSION: 1. No duplex evidence of renal artery stenosis on either side. 2. Possible solid mass of the left kidney. Correlation with pre and post contrast CT is advised. 3. Cholelithiasis. Dictated by: Dictated on workstation # [id number]
[2022-06-18] MEDS: ACETAMINOPHEN 500 MG TAB (TYLENOL) PO SCH (20:54)
[2022-06-19] VITALS (9 sets, daily range): BP systolic 121–196; BP diastolic 70–99
[2022-06-19] MEDS: GABAPENTIN 400 MG (NEURONTIN) CAP PO SCH ×3 (05:36→13:14)
[2022-06-19] MEDS: inSUlin ASPART (NovoLOG) 1 UNIT/0.01 ML (CHARGE PER UNIT) SC SCH ×4 (05:36→22:17)
[2022-06-19] MEDS: LACTOBACILLUS ACIDOPHILUS (PROBIOTIC) CAPSULE PO SCH ×2 (05:36→12:35)
[2022-06-19 05:40] LABS: BASOPHILS % (AUTO) 1 % (0-10); EOSINOPHILS # (AUTO) 0.2 10^3/uL (0.0-0.3); EOSINOPHILS % (AUTO) 3 % (0-10); HEMATOCRIT 32 % (40-54); HEMOGLOBIN 10.2 g/dL (13.3-17.7); LYMPHOCYTES # (AUTO) 1.2 10^3/uL (1.0-4.0); LYMPHOCYTES % (AUTO) 21 % (12-44); MEAN CORPUSCULAR HEMOGLOBIN 28 pg (25-34); MEAN CORPUSCULAR HGB CONC 32 g/dL (32-36); MEAN CORPUSCULAR VOLUME 87 fL (80-99); MEAN PLATELET VOLUME 9.4 fL (9.0-12.2); MONOCYTES # (AUTO) 0.3 10^3/uL (0.0-1.0); MONOCYTES % (AUTO) 6 % (0-12); NEUTROPHILS # (AUTO) 3.5 10^3/uL (1.8-7.8); NEUTROPHILS % (AUTO) 63 % (42-75); PLATELET COUNT 223 10^3/uL (130-400); WHITE BLOOD COUNT 5.6 10^3/uL (4.3-11.0)
[2022-06-19] MEDS: AMITRIPTYLINE 10 MG (ELAVIL) TAB PO SCH ×2 (05:46→18:29)
[2022-06-19 06:04] LABS: ALBUMIN 2.9 GM/DL (3.2-4.5); BILIRUBIN,TOTAL 0.2 MG/DL (0.1-1.0); CALCIUM 9.5 MG/DL (8.5-10.1); CREATININE SERUM 1.16 MG/DL (0.60-1.30); POTASSIUM 3.8 MMOL/L (3.6-5.0); TOTAL PROTEIN 6.5 GM/DL (6.4-8.2)
--- NOTE | 2022-06-19 08:07 | Progress Note ---
Subjective Subjective Date Seen by Provider: Jun 19, 2022 Time Seen by Provider: 08:00 Pt is a 36 y/o male who is known to me from clinic. He was admitted with urinary tract infection, weakness, lethargy and recent urinary retention due to inability to replace suprapubic catheter. Pt doing well this morning, sleepy but feeling better today staff notes elevated blood pressures overnight Review of Systems General: No Chills, No Night Sweats; Fatigue, Malaise; No Appetite, No Other HEENT: No Head Aches, No Dysphasia, No Sinus Congestion Pulmonary: Dyspnea, Cough Cardiovascular: No: Chest Pain, Palpitations, Orthopnea, Edema Gastrointestinal: No: Nausea, Vomiting, Abdominal Pain Genitourinary: Other (suprapubic catheter in place) Neurological: Weakness; No: Confusion All Other Systems Reviewed All Other Systems Reviewed: Yes Objective Exam Vital Signs Vital Signs Date Time Temp Pulse Resp B/P (MAP) Pulse Ox O2 Delivery O2 Flow Rate FiO2 06/19/22 07:03 35.8 81 18 176/94 (121) 98 Nasal Cannula 1.00 06/19/22 07:00 79 06/19/22 03:40 36.8 72 20 173/92 (119) 96 Nasal Cannula 1.00 06/19/22 01:00 170/92 (118) 06/19/22 01:00 80 06/18/22 23:32 36.8 92 20 179/88 (118) 98 Nasal Cannula 1.00 06/18/22 20:55 Nasal Cannula 1.00 06/18/22 19:29 Nasal Cannula 1.00 06/18/22 19:26 36.3 89 20 173/95 (121) 98 Nasal Cannula 1.00 06/18/22 19:00 90 06/18/22 15:25 37.3 78 20 173/90 (117) 97 Nasal Cannula 1.00 06/18/22 13:14 73 06/18/22 11:36 36.6 75 18 163/88 (113) 96 Nasal Cannula 1.00 I & O 06/19/22 07:00 Intake Total 2920 ml Output Total 5725 ml Balance -2805 ml General Appearance: No Apparent Distress, Obese HEENT: PERRL/EOMI Respiratory: Chest Non Tender, Lungs Clear, Normal Breath Sounds, No Accessory Muscle Use, No Respiratory Distress Cardiovascular: Regular Rate, Rhythm Gastrointestinal: Normal Bowel Sounds, Non Tender, Soft, Other (COLOSTOMY IN RIGHT MID ABDOMEN; SUPRAPUBIC CATH IN PLACE. NO SIGNS OF INFECTION OR BLEEDING ) Extremity: No Pedal Edema Neurologic/Psychiatric: Alert, Oriented x3, Other (fatigued, slower to answer questions compared to his usual demeanor/reactions) Skin: Normal Color, Warm/Dry; No Rash Lymphatic: No Adenopathy Results Lab Laboratory Tests 06/18/22 11:04: Glucometer 100 06/18/22 15:14: Glucometer 91 06/18/22 20:08: Glucometer 113H 06/19/22 05:20: White Blood Count 5.6, Red Blood Count 3.64L, Hemoglobin 10.2L, Hematocrit 32L, Mean Corpuscular Volume 87, Mean Corpuscular Hemoglobin 28, Mean Corpuscular Hemoglobin Concent 32, Red Cell Distribution Width 13.4, Platelet Count 223, Mean Platelet Volume 9.4, Immature Granulocyte % (Auto) 6, Neutrophils (%) (Auto) 63, Lymphocytes (%) (Auto) 21, Monocytes (%) (Auto) 6, Eosinophils (%) (Auto) 3, Basophils (%) (Auto) 1, Neutrophils # (Auto) 3.5, Lymphocytes # (Auto) 1.2, Monocytes # (Auto) 0.3, Eosinophils # (Auto) 0.2, Basophils # (Auto) 0.0, Immature Granulocyte # (Auto) 0.3H, Sodium Level 144, Potassium Level 3.8, Chloride Level 112H, Carbon Dioxide Level 19L, Anion Gap 13, Blood Urea Nitrogen 21H, Creatinine 1.16, Estimat Glomerular Filtration Rate 85, BUN/Creatinine Ratio 18, Glucose Level 96, Calcium Level 9.5, Corrected Calcium 10.4H, Total Bilirubin 0.2, Aspartate Amino Transf (AST/SGOT) 20, Alanine Aminotransferase (ALT/SGPT) 25, Alkaline Phosphatase 81, Total Protein 6.5, Albumin 2.9L 06/19/22 05:35: Glucometer 92 Microbiology 06/14/22 Blood Culture - Preliminary, Resulted No growth 06/14/22 Urine Culture - Final, Complete Escherichia coli Strep agalactiae Group B See Comments Pseudomonas aeruginosa Assessment/Plan Assessment/Plan Admission Dx Acute renal failure Acute Urinary Tract infection Chronic Urinary retention with Suprapubic Catheter in place Colostomy status Paraplegia Spinabifida Hypertension Neuropathy Gastroparesis Chronic Seizure Disorder Morbid Obesity Anemia Leukocytosis Chronic Depression and Anxiety GERD Assessment and Plan Acute renal failure Acute Urinary Tract infection with ecoli and pseudomonas Chronic Urinary retention with Suprapubic Catheter in place MASS in left kidney Colostomy status Paraplegia Spinabifida Hypertension Neuropathy Gastroparesis Chronic Seizure Disorder Morbid Obesity Anemia Leukocytosis Chronic Depression and Anxiety GERD Acute renal failure with Acute Urinary Tract infection with ecoli and pseudomonas Chronic Urinary retention with Suprapubic Catheter in place - pt is status post replacement of Catheter in the past week with urinary retention as a result of delayed placement of catheter - this likely let to current infection - pt on IV antibiotics Cefepime- - STOPPED ON 06/18/22 AND STARTED Levofloxacin as sensitivity profile showed that both ecoli and pseudomonas are sensitive and this can be given orally as outpatient on dc - renal failure now resolved stoped fluids US RENAL ART DOPPLER TIMMY COMP INDICATION: Uncontrolled hypertension. FINDINGS: Performing wagon person reports limited exam due to patient body habitus and patient difficulty with breathing instructions. Right kidney measures 13.1 cm in length and left measures 11.6 cm. Cortical thickness and corticomedullary differentiation are maintained. Anechoic benign- appearing cyst is present within the inferior pole of the right kidney and measures 2.6 x 2.3 x 2.4 cm. There is nodular area within the mid region near the inferior pole of the left kidney that measures 3.9 x 2.1 x 3.3 cm and is concerning for potential solid mass. There is no evidence of calculus or hydronephrosis on either side. There is no ascites. Suprapubic catheter is in place. Note is made of cholelithiasis. Doppler evaluation of the renal arteries was also performed. On the right, main renal artery peak systolic velocities range from 53 to 73 cm/s. On the left, these range from 43 to 92 cm/s. Abdominal aorta peak systolic velocity measures 101 cm/s. Ratios are within normal limits. Peak systolic velocities show normal brisk upstroke. Arcuate artery resistive index on the right ranges from 0.57 to 0.68 and on the left from 0.53 to 0.71. IMPRESSION: 1. No duplex evidence of renal artery stenosis on either side. 2. Possible solid mass of the left kidney. Correlation with pre and post contrast CT is advised. 3. Cholelithiasis. (niece Verito Navarro in the room today as I discussed CT findings with oJn - I also placed a call to his [id number] Bertrand Savage - call pending to Jon's mother) MASS in left kidney - CT of abd/pelvis today Colostomy status - supportive care Paraplegia due to Spinabifida - supportive care Hypertension - resumed some of his home medications (pt on hydralazine and losartan - cardiology to adjust metoprolol dosing due to persistent elevation of blood pressure) - dosing of metoprolol increased with several spikes in his bp overnight - cardiology added CLONIDINE 0.1mg on 06/19/22 - renal artery doppler report as above - negative for high resistive indexes - increased hydralazine from 25mg tid to 50mg tid - consult to cardiology Elevated Troponin - consult to Dr. Yin - pt on lovenox Neuropathy - resumed gabapentin Gastroparesis - monitor symptoms, restarted low dose Reglan, monitor symptoms Chronic Seizure Disorder - checked keppra level, resumed medication to prevent recurrent seizures Morbid Obesity Anemia - monitor labs - pt on routine iron supplementation Leukocytosis - improved with hydration and treatment of infection Chronic Depression and Anxiety - resumed cymbalta GERD - resumed ppi Due to lethargy - and cough - rechecked covid (there is an outbreak at the local nursing homes) - negative dvt prohpylaxis with scd's and lovenox gi prophylaxis with ppi Admission Dx Acute renal failure Acute Urinary Tract infection Chronic Urinary retention with Suprapubic Catheter in place Colostomy status Paraplegia Spinabifida Hypertension Neuropathy Gastroparesis Chronic Seizure Disorder Morbid Obesity Anemia Leukocytosis Chronic Depression and Anxiety GERD Clinical Quality Measures Admission Status Admission Dx Acute renal failure Acute Urinary Tract infection Chronic Urinary retention with Suprapubic Catheter in place Colostomy status Paraplegia Spinabifida Hypertension Neuropathy Gastroparesis Chronic Seizure Disorder Morbid Obesity Anemia Leukocytosis Chronic Depression and Anxiety GERD MIRIAM SIERRA MD Jun 19, 2022 08:06
[2022-06-19] MEDS: ALLOPURINOL 100 MG (ZYLOPRIM) TAB PO SCH (08:30)
[2022-06-19] MEDS: LOSARTAN 100 MG (COZAAR) TABLET PO SCH (08:30)
[2022-06-19] MEDS: ENOXAPARIN 60 MG/0.6 ML (LOVENOX) SYR SC SCH ×2 (08:30→21:40)
[2022-06-19] MEDS: DULoxetine 30 MG (CYMBALTA) CAP PO SCH (08:30)
[2022-06-19] MEDS: hydrALAZINE (APRESOLINE) 25 MG TAB PO SCH ×3 (08:31→21:39)
[2022-06-19] MEDS: METOCLOPRAMIDE 5 MG (REGLAN) TAB PO SCH ×2 (08:31→21:39)
[2022-06-19] MEDS: meTOprolol TARTRATE 50 MG (LOPRESSOR) TAB PO SCH ×2 (08:31→21:39)
[2022-06-19] MEDS: amLODIPine 10 MG (NORVASC) TAB PO SCH (08:31)
[2022-06-19] MEDS: PANTOPRAZOLE 40 MG (PROTONIX) TAB PO SCH ×3 (08:32→21:39)
[2022-06-19] MEDS: MICONAZOLE 2% POWDER (DESENEX AF) 90 GM TP SCH ×2 (08:36→22:17)
[2022-06-19] MEDS: DICLOFENAC 1% GEL 100 GM (VOLTAREN) TUBE TP SCH ×3 (08:44→21:38)
[2022-06-19] MEDS ORDERED: NS 100 ML (IVPB) BAG IV ONE (09:00)
[2022-06-19] MEDS ORDERED: HOLD METFORMIN - RECEIVED CONTRAST 20 ML VIAL IV SCH (09:00)
[2022-06-19] MEDS ORDERED: IOHEXOL 350 MG/ML 100 ML (OMNIPAQUE 350) VIAL IV ONE (09:00)
[2022-06-19] MEDS ORDERED: cloNIDine 0.1 MG (CATAPRES) TAB PO SCH (09:00)
--- NOTE | 2022-06-19 11:25 | Diagnostic Imaging Report ---
PROCEDURE: CT abdomen and pelvis with and without contrast. TECHNIQUE: Precontrast acquisitions were acquired through the abdomen and pelvis. Multiple contiguous axial images were obtained through the abdomen and pelvis after the administration of intravenous contrast. Auto Exposure Controls were utilized during the CT exam to meet ALARA standards for radiation dose reduction. INDICATION: Renal mass. Patient had abnormal renal ultrasound one day earlier. Comparison is made with renal ultrasound one day earlier. FINDINGS: Imaging through lung bases does show trace bilateral pleural effusions. Liver demonstrates some mild generalized low attenuation consistent with hepatic steatosis. No liver mass is detected. Gallbladder is unremarkable. No biliary ductal dilatation is seen. The pancreas is unremarkable. Spleen is mildly enlarged. No adrenal mass is detected. Both kidneys demonstrate significant lobular contour, likely owing to cortical scarring. There are small low-attenuation lesions within both kidneys suggestive of cysts. No definite solid renal mass is identified. There does appear to be questionable filling defect within the infundibulum in the midportion of the left kidney. In addition, there appears to be some katia-ureteral inflammatory stranding at the level of the junction of the proximal to mid left ureter. No definite contrast within the left ureter is seen to further characterize this finding but urothelial process such as neoplasm cannot be entirely excluded. No significant hydronephrosis is seen. Aorta is nonaneurysmal. There are some prominent lymph nodes in the central retroperitoneum. A left para-aortic node at the level of the renal hilum measures 16 mm x 16 mm. No definite pelvic lymphadenopathy is seen. Patient does have right lower quadrant ostomy. Bowel loops appear to be nondilated. A large ventral hernia within the patient's pannus is again noted containing small and large bowel loops. Bladder is decompressed by catheter. Patient does have a large spina bifida defect in the sacrum. IMPRESSION: 1. Small bilateral pleural effusions. 2. Renal cortical scarring bilaterally but no discrete solid renal mass is identified. There are small bilateral renal cysts. There is, however abnormal appearance to the left ureter near the junction of the proximal and mid 3rd where there is moderate thickening and mild surrounding stranding. While this could be on infectious/inflammatory basis, urothelial neoplasm cannot be entirely excluded. Patient does have multiple prominence central retroperitoneal lymph nodes and metastatic disease cannot be excluded. Urologic consult would be useful. No other significant abnormality is detected. Dictated by: Dictated on workstation # [id number]
--- NOTE | 2022-06-19 12:53 | Cardiology Progress Note ---
Subjective Date Seen by Provider: Jun 19, 2022 Time Seen by Provider: 12:52 Subjective/Events-last exam Patient was seen at bedside, laying down comfortably. No new complaint Review of Systems General: No Chills, No Night Sweats, No Fatigue, No Malaise, No Appetite, No Other HEENT: No Head Aches, No Visual Changes, No Eye Pain, No Ear Pain, No Dysphasia, No Sinus Congestion, No Post Nasal Drip, No Sore Throat, No Other Pulmonary: No Dyspnea, No Cough, No Pleuritic Chest Pain, No Other Cardiovascular: No: Chest Pain, Palpitations, Orthopnea, Paroxysmal Noc. Dyspnea, Edema, Lt Headedness, Other Focused Exam Time of Focused Exam: 16:10 Objective-Cardiology Exam Last Set of Vital Signs Vital Signs 06/19/22 06/19/22 12:36 12:49 Temp 36.7 Pulse 80 Resp 18 B/P (MAP) 188/88 (121) Pulse Ox 98 O2 Delivery Nasal Cannula O2 Flow Rate 1.00 I&O Intake and Output0 06/19/22 00:00 Intake Total 2820 ml Output Total 5825 ml Balance -3005 ml Intake Oral 2820 ml Output Urine Total 5625 ml Stool Total 200 ml # Bowel Movements 1 General: Alert, Oriented X3, Cooperative HEENT: Atraumatic, PERRLA Neck: Supple, No JVD Lungs: Clear to Auscultation Heart: Regular Rate, Normal S1, Normal S2 Abdomen: Normal Bowel Sounds Extremities: No Clubbing, No Cyanosis Skin: No Rashes, No Breakdown Neuro: Normal Speech Psych/Mental Status: Mood NL Results Lab Laboratory Tests 06/19/22 05:20 A/P-Cardiology Admission Diagnosis Chest pain Type II myocardial infarction UTI Acute renal failure Assessment/Plan Urinary tract infection, status post recent placement of suprapubic catheter Receiving antibiotics. Managed by medical team Chest pain, minimal elevation in troponin, type II myocardial infarction. Probably secondary to renal failure and left ventricular hypertrophy. EKG did not show any acute changes. Troponin level is flat. Continue to monitor at this point. Conservative management is recommended 2D echo was done on June 15, 2022 showing moderate LVH, EF 55 to 60%, grade 1 diastolic dysfunction, PA pressure 25 to 30 mmHg. Acute on chronic renal failure, receiving IV fluid, monitor renal function Hypertension, resistant to multiple medication Add clonidine and monitor tolerance and response Sinus tachycardia, improved after increasing beta neva, continue to monitor. Diabetes mellitus, managed by primary care physician Spina bifida, paraplegia. BECKY GARCIA MD Jun 19, 2022 12:53
[2022-06-19] MEDS: cloNIDine 0.1 MG (CATAPRES) TAB PO SCH ×2 (12:58→21:39)
[2022-06-19] MEDS ORDERED: cloNIDine 0.1 MG (CATAPRES) TAB PO NR (13:00)
[2022-06-19] MEDS: ACETAMINOPHEN 500 MG TAB (TYLENOL) PO SCH (21:38)
[2022-06-20] VITALS (7 sets, daily range): BP systolic 111–146; BP diastolic 71–86
[2022-06-20] MEDS: inSUlin ASPART (NovoLOG) 1 UNIT/0.01 ML (CHARGE PER UNIT) SC SCH ×4 (05:25→20:27)
[2022-06-20] MEDS: LACTOBACILLUS ACIDOPHILUS (PROBIOTIC) CAPSULE PO SCH ×2 (05:36→13:44)
[2022-06-20] MEDS: GABAPENTIN 400 MG (NEURONTIN) CAP PO SCH ×3 (05:36→13:44)
[2022-06-20] MEDS: AMITRIPTYLINE 10 MG (ELAVIL) TAB PO SCH ×2 (05:38→17:12)
[2022-06-20] MEDS: cloNIDine 0.1 MG (CATAPRES) TAB PO SCH ×3 (08:11→20:35)
[2022-06-20] MEDS: DULoxetine 30 MG (CYMBALTA) CAP PO SCH (08:11)
[2022-06-20] MEDS: hydrALAZINE (APRESOLINE) 25 MG TAB PO SCH ×3 (08:11→20:35)
[2022-06-20] MEDS: amLODIPine 10 MG (NORVASC) TAB PO SCH (08:11)
[2022-06-20] MEDS: ALLOPURINOL 100 MG (ZYLOPRIM) TAB PO SCH (08:11)
[2022-06-20] MEDS: meTOprolol TARTRATE 50 MG (LOPRESSOR) TAB PO SCH ×2 (08:12→20:35)
[2022-06-20] MEDS: PANTOPRAZOLE 40 MG (PROTONIX) TAB PO SCH ×2 (08:12→20:35)
[2022-06-20] MEDS: LOSARTAN 100 MG (COZAAR) TABLET PO SCH (08:13)
--- NOTE | 2022-06-20 09:33 | Progress Note ---
Subjective Subjective Date Seen by Provider: Jun 20, 2022 Time Seen by Provider: 08:50 Pt is a 36 y/o male who is known to me from clinic. He was admitted with urinary tract infection, weakness, lethargy and recent urinary retention due to inability to replace suprapubic catheter. Jon denies chest pain, shortness of breath, dizziness. He does not remember our conversation last night about his CT scan findings. However he reports that he is feeling better than on admission. Review of Systems General: No Chills, No Night Sweats, No Fatigue, No Malaise, No Appetite, No Other HEENT: No Head Aches, No Visual Changes, No Eye Pain, No Ear Pain, No Dysphasia, No Sinus Congestion, No Post Nasal Drip, No Sore Throat, No Other Pulmonary: No Dyspnea, No Cough, No Pleuritic Chest Pain, No Other Cardiovascular: No: Chest Pain, Palpitations, Orthopnea, Paroxysmal Noc. Dyspnea, Edema, Lt Headedness, Other Gastrointestinal: No: Nausea, Vomiting, Abdominal Pain Genitourinary: Other (suprapubic catheter in place) Neurological: Weakness; No: Confusion All Other Systems Reviewed All Other Systems Reviewed: Yes Objective Exam Vital Signs Vital Signs Date Time Temp Pulse Resp B/P (MAP) Pulse Ox O2 Delivery O2 Flow Rate FiO2 06/20/22 08:10 36.4 70 18 135/85 (102) 98 Nasal Cannula 0.50 06/20/22 07:00 70 06/20/22 07:00 98 Nasal Cannula 0.50 06/20/22 03:43 36.1 69 18 130/85 (100) 98 Nasal Cannula 0.50 06/20/22 01:00 70 06/19/22 23:40 36.5 70 18 156/87 (110) 98 Nasal Cannula 0.50 06/19/22 21:40 84 161/80 (107) 06/19/22 20:55 96 Nasal Cannula 0.50 06/19/22 20:20 36.8 85 18 141/79 (99) 97 Nasal Cannula 0.50 06/19/22 19:00 81 06/19/22 15:25 36.0 75 19 121/70 (87) 97 Nasal Cannula 1.00 06/19/22 12:49 80 06/19/22 12:36 36.7 80 18 188/88 (121) 98 Nasal Cannula 1.00 06/19/22 11:17 36.9 81 18 196/99 (131) 98 Nasal Cannula 1.00 I & O 06/20/22 06:59 Intake Total 2790 ml Output Total 4800 ml Balance -2010 ml General Appearance: No Apparent Distress, Obese HEENT: PERRL/EOMI Respiratory: Chest Non Tender, Lungs Clear, Normal Breath Sounds, No Accessory Muscle Use, No Respiratory Distress Cardiovascular: Regular Rate, Rhythm Gastrointestinal: Normal Bowel Sounds, Non Tender, Soft, Other (COLOSTOMY IN RIGHT MID ABDOMEN; SUPRAPUBIC CATH IN PLACE. NO SIGNS OF INFECTION OR BLEEDING ) Extremity: No Pedal Edema Neurologic/Psychiatric: Alert, Oriented x3, Other (fatigued, slower to answer questions compared to his usual demeanor/reactions) Skin: Normal Color, Warm/Dry; No Rash Lymphatic: No Adenopathy Results Lab Laboratory Tests 06/19/22 11:20: Glucometer 155H 06/19/22 15:28: Glucometer 80 06/19/22 16:35: 06/19/22 20:19: Glucometer 110 06/20/22 05:13: Glucometer 103 Microbiology 06/14/22 Blood Culture - Preliminary, Resulted No growth 06/14/22 Urine Culture - Final, Complete Escherichia coli Strep agalactiae Group B See Comments Pseudomonas aeruginosa Assessment/Plan Assessment/Plan Admission Dx Acute renal failure Acute Urinary Tract infection Chronic Urinary retention with Suprapubic Catheter in place Colostomy status Paraplegia Spinabifida Hypertension Neuropathy Gastroparesis Chronic Seizure Disorder Morbid Obesity Anemia Leukocytosis Chronic Depression and Anxiety GERD Assessment and Plan Acute renal failure Acute Urinary Tract infection with ecoli and pseudomonas Chronic Urinary retention with Suprapubic Catheter in place Left ureteral inflammation vs infection vs mass Colostomy status Paraplegia Spinabifida Hypertension Neuropathy Gastroparesis Chronic Seizure Disorder Morbid Obesity Anemia Leukocytosis Chronic Depression and Anxiety GERD Acute renal failure with Acute Urinary Tract infection with ecoli and pseudomo tracey Chronic Urinary retention with Suprapubic Catheter in place - pt is status post replacement of Catheter in the past week with urinary retention as a result of delayed placement of catheter - this likely let to current infection - pt on IV antibiotics Cefepime- - STOPPED ON 06/18/22 AND STARTED Levofloxacin as sensitivity profile showed that both ecoli and pseudomonas are sensitive and this can be given orally as outpatient on dc - renal failure now resolved stoped fluids US RENAL ART DOPPLER TIMMY COMP INDICATION: Uncontrolled hypertension. FINDINGS: Performing triage technician reports limited exam due to patient body habitus and patient difficulty with breathing instructions. Right kidney measures 13.1 cm in length and left measures 11.6 cm. Cortical thi ckness and corticomedullary differentiation are maintained. Anechoic benign- appearing cyst is present within the inferior pole of the right kidney and measures 2.6 x 2.3 x 2.4 cm. There is nodular area within the mid region near the inferior pole of the left kidney that measures 3.9 x 2.1 x 3.3 cm and is concerning for potential solid mass. There is no evidence of calculus or hydronephrosis on either side. There is no ascites. Suprapubic catheter is in place. Note is made of cholelithiasis. Doppler evaluation of the renal arteries was also performed. On the right, main renal artery peak systolic velocities range from 53 to 73 cm/s. On the left, these range from 43 to 92 cm/s. Abdominal aorta peak systolic velocity measures 101 cm/s. Ratios are within normal limits. Peak systolic velocities show normal brisk upstroke. Arcuate artery resistive index on the right ranges from 0.57 to 0.68 and on the left from 0.53 to 0.71. IMPRESSION: 1. No duplex evidence of renal artery stenosis on either side. 2. Possible solid mass of the left kidney. Correlation with pre and post contrast CT is advised. 3. Cholelithiasis. (niece Verito Navarro in the room today as I discussed CT findings with Jon - I also placed a call to his [id number] Bertrand Savage - call pending to Geno conley's mother) Left ureteral inflammation vs infection vs mass MASS in left kidney - CT of abd/pelvis was negative for mass of Kidney - as I discussed yesterday with Jon and his [id number] - Bertrand Savage. - Our plan right now will be to repeat a CT scan in 3 weeks to see if the area of concern in the left ureter is resolved after treatment for infection. 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 Yin - pt on lovenox Neuropathy - resumed gabapentin Gastroparesis - monitor symptoms, restarted low dose Reglan, monitor symptoms Chronic Seizure Disorder - checked keppra level, resumed medication to prevent recurrent seizures Morbid Obesity Anemia - monitor labs - pt on routine iron supplementation Leukocytosis - improved with hydration and treatment of infection Chronic Depression and Anxiety - resumed cymbalta GERD - resumed ppi Due to lethargy - and cough - rechecked covid (there is an outbreak at the local nursing homes) - negative dvt prohpylaxis with scd's and lovenox gi prophylaxis with ppi Admission Dx Acute renal failure Acute Urinary Tract infection Chronic Urinary retention with Suprapubic Catheter in place Colostomy status Paraplegia Spinabifida Hypertension Neuropathy Gastroparesis Chronic Seizure Disorder Morbid Obesity Anemia Leukocytosis Chronic Depression and Anxiety GERD Clinical Quality Measures Admission Status Admission Dx Acute renal failure Acute Urinary Tract infection Chronic Urinary retention with Suprapubic Catheter in place Colostomy status Paraplegia Spinabifida Hypertension Neuropathy Gastroparesis Chronic Seizure Disorder Morbid Obesity Anemia Leukocytosis Chronic Depression and Anxiety GERD MIRIAM SIERRA MD Jun 20, 2022 09:33
[2022-06-20] MEDS: METOCLOPRAMIDE 5 MG (REGLAN) TAB PO SCH ×2 (10:21→20:35)
[2022-06-20] MEDS: MICONAZOLE 2% POWDER (DESENEX AF) 90 GM TP SCH ×2 (10:21→20:34)
[2022-06-20] MEDS: ENOXAPARIN 60 MG/0.6 ML (LOVENOX) SYR SC SCH ×2 (10:22→20:34)
[2022-06-20] MEDS: DICLOFENAC 1% GEL 100 GM (VOLTAREN) TUBE TP SCH ×3 (10:22→20:34)
--- NOTE | 2022-06-20 17:22 | Cardiology Progress Note ---
Subjective Date Seen by Provider: Jun 20, 2022 Time Seen by Provider: 16:30 Subjective/Events-last exam No acute issues overnight. BPs improved- 110-130s systolic on four agents. Focused Exam Time of Focused Exam: 16:10 Objective-Cardiology Exam Last Set of Vital Signs Vital Signs 06/20/22 16:00 Temp 36.5 Pulse 71 Resp 18 B/P (MAP) 134/86 (102) Pulse Ox 97 O2 Delivery Nasal Cannula O2 Flow Rate 0.50 I&O Intake and Output 06/20/22 00:00 Intake Total 3190 ml Output Total 4925 ml Balance -1735 ml Intake Oral 3190 ml Output Urine Total 4650 ml Stool Total 275 ml General: Alert, Oriented X3, Cooperative HEENT: Atraumatic, PERRLA Neck: Supple, No JVD Lungs: Clear to Auscultation Heart: Regular Rate, Normal S1, Normal S2 Abdomen: Normal Bowel Sounds Extremities: No Clubbing, No Cyanosis Skin: No Rashes, No Breakdown Neuro: Normal Speech Psych/Mental Status: Mood NL A/P-Cardiology Admission Diagnosis Chest pain Type II myocardial infarction UTI Acute renal failure Assessment/Plan ## Urinary tract infection, status post recent placement of suprapubic catheter - cont Levoflox (E.coli and Pseudomonas) - further plans per hospitalist team ## NSTEMI; Tn flat at 0.07 and 0.08; Likely type II NSTEMI in setting of UTI. EKG without acute changes. ECHO without any regional wall motion abnormalities (moderate LVH, EF 55 to 60%, grade 1 diastolic dysfunction, PA pressure 25 to 30 mmHg.). No active complaints currently - f/u with Dr. Yin as outpt in cardiology clinic (for HTN and NsTEMI)- consider stress test as outpatient - conservative management for now. ## Acute on chronic renal failure, resolved - cont to monitor ## Hypertension, On 5 meds (clonidine 0.1mg po TID, norvasc 10mg po QD, losartan 100mg po QD, hydralazine 50mg po TID, metoprolol 100mg po BID). BPs currently stable 110-130s systolic - renal U/S negative for CHANDU ## Sinus tachycardia, resolved; HRs 60-70 after increase in beta blockade - continue to monitor. ## Diabetes mellitus - as per hospitalist team ## Spina bifida, paraplegia. RAMÍREZ CESPEDES MD Jun 20, 2022 17:22
[2022-06-20] MEDS: ACETAMINOPHEN 500 MG TAB (TYLENOL) PO SCH (20:35)
[2022-06-21 03:41] VITALS: BP 121/79
[2022-06-21 05:51] LABS: BASOPHILS % (AUTO) 0 % (0-10); EOSINOPHILS # (AUTO) 0.2 10^3/uL (0.0-0.3); EOSINOPHILS % (AUTO) 3 % (0-10); HEMATOCRIT 32 % (40-54); HEMOGLOBIN 10.2 g/dL (13.3-17.7); LYMPHOCYTES # (AUTO) 1.3 10^3/uL (1.0-4.0); LYMPHOCYTES % (AUTO) 23 % (12-44); MEAN CORPUSCULAR HEMOGLOBIN 28 pg (25-34); MEAN CORPUSCULAR HGB CONC 32 g/dL (32-36); MEAN CORPUSCULAR VOLUME 88 fL (80-99); MEAN PLATELET VOLUME 9.5 fL (9.0-12.2); MONOCYTES # (AUTO) 0.3 10^3/uL (0.0-1.0); MONOCYTES % (AUTO) 6 % (0-12); NEUTROPHILS # (AUTO) 3.4 10^3/uL (1.8-7.8); NEUTROPHILS % (AUTO) 60 % (42-75); PLATELET COUNT 241 10^3/uL (130-400); WHITE BLOOD COUNT 5.6 10^3/uL (4.3-11.0)
[2022-06-21] MEDS: inSUlin ASPART (NovoLOG) 1 UNIT/0.01 ML (CHARGE PER UNIT) SC SCH ×4 (05:54→21:31)
[2022-06-21] MEDS: AMITRIPTYLINE 10 MG (ELAVIL) TAB PO SCH ×2 (05:59→17:04)
[2022-06-21] MEDS: LACTOBACILLUS ACIDOPHILUS (PROBIOTIC) CAPSULE PO SCH ×2 (05:59→13:20)
[2022-06-21] MEDS: GABAPENTIN 400 MG (NEURONTIN) CAP PO SCH ×3 (05:59→13:20)
[2022-06-21 06:20] LABS: ALBUMIN 3.2 GM/DL (3.2-4.5); BILIRUBIN,TOTAL 0.1 MG/DL (0.1-1.0); CALCIUM 9.3 MG/DL (8.5-10.1); CREATININE SERUM 1.03 MG/DL (0.60-1.30); POTASSIUM 4.2 MMOL/L (3.6-5.0); TOTAL PROTEIN 6.7 GM/DL (6.4-8.2)
[2022-06-21 06:39] LABS: SMEAR SCAN COMMENT YES
[2022-06-21 07:13] VITALS: BP 131/88
--- NOTE | 2022-06-21 08:17 | Progress Note ---
Subjective Subjective Date Seen by Provider: Jun 21, 2022 Time Seen by Provider: 08:00 Pt is a 36 y/o male who is known to me from clinic. He was admitted with urinary tract infection, weakness, lethargy and recent urinary retention due to inability to replace suprapubic catheter. Jon denies chest pain, shortness of breath, dizziness. Jon reports feeling good, feels ready to go home to [facility] and rehab. Review of Systems General: No Chills, No Night Sweats, No Fatigue, No Malaise, No Appetite, No Other HEENT: No Head Aches, No Visual Changes, No Eye Pain, No Ear Pain, No Dysphasia, No Sinus Congestion, No Post Nasal Drip, No Sore Throat, No Other Pulmonary: No Dyspnea, No Cough, No Pleuritic Chest Pain, No Other Cardiovascular: No: Chest Pain, Palpitations, Orthopnea, Paroxysmal Noc. Dyspnea, Edema, Lt Headedness, Other Gastrointestinal: No: Nausea, Vomiting, Abdominal Pain Genitourinary: Other (suprapubic catheter in place) Neurological: Weakness; No: Confusion All Other Systems Reviewed All Other Systems Reviewed: Yes Objective Exam Vital Signs Vital Signs Date Time Temp Pulse Resp B/P (MAP) Pulse Ox O2 Delivery O2 Flow Rate FiO2 06/21/22 07:13 35.8 71 18 131/88 (102) 96 Nasal Cannula 0.50 0.50 06/21/22 07:00 63 06/21/22 03:41 36.2 65 16 121/79 (93) 98 Nasal Cannula 0.50 06/21/22 01:00 70 06/20/22 23:06 36.2 79 16 146/72 (96) 98 Nasal Cannula 0.50 06/20/22 22:57 36.6 77 97 06/20/22 20:00 98 Nasal Cannula 0.50 06/20/22 19:50 97 Nasal Cannula 0.50 06/20/22 19:14 36.6 80 18 134/80 (98) 96 Nasal Cannula 0.50 06/20/22 19:00 80 06/20/22 16:00 36.5 71 18 134/86 (102) 97 Nasal Cannula 0.50 06/20/22 13:00 74 06/20/22 11:20 36.4 72 20 111/71 (84) 94 Nasal Cannula 0.50 I & O 06/21/22 07:00 Intake Total 5150 ml Output Total 4375 ml Balance 775 ml General Appearance: No Apparent Distress, WD/WN, Obese HEENT: PERRL/EOMI Respiratory: Chest Non Tender, Lungs Clear, Normal Breath Sounds, No Accessory Muscle Use, No Respiratory Distress Cardiovascular: Regular Rate, Rhythm Gastrointestinal: Normal Bowel Sounds, Non Tender, Soft, Other (COLOSTOMY IN RIGHT MID ABDOMEN; SUPRAPUBIC CATH IN PLACE. NO SIGNS OF INFECTION OR BLEEDING ) Extremity: No Pedal Edema Neurologic/Psychiatric: Alert, Oriented x3, Other (fatigued, slower to answer questions compared to his usual demeanor/reactions) Skin: Normal Color, Warm/Dry; No Rash Lymphatic: No Adenopathy Results Lab Laboratory Tests 06/20/22 11:18: Glucometer 100 06/20/22 15:27: Glucometer 136H 06/20/22 19:47: Glucometer 121H 06/21/22 05:37: Glucometer 99, White Blood Count 5.6, Red Blood Count 3.60L, Hemoglobin 10.2L, Hematocrit 32L, Mean Corpuscular Volume 88, Mean Corpuscular Hemoglobin 28, Mean Corpuscular Hemoglobin Concent 32, Red Cell Distribution Width 13.2, Platelet Count 241, Mean Platelet Volume 9.5, Immature Granulocyte % (Auto) 8, Neutrophils (%) (Auto) 60, Lymphocytes (%) (Auto) 23, Monocytes (%) (Auto) 6, Eosinophils (%) (Auto) 3, Basophils (%) (Auto) 0, Neutrophils # (Auto) 3.4, Lymphocytes # (Auto) 1.3, Monocytes # (Auto) 0.3, Eosinophils # (Auto) 0.2, Basophils # (Auto) 0.0, Immature Granulocyte # (Auto) 0.4H, Sodium Level 142, Potassium Level 4.2, Chloride Level 111H, Carbon Dioxide Level 21, Anion Gap 10, Blood Urea Nitrogen 26H, Creatinine 1.03, Estimat Glomerular Filtration Rate 98, BUN/Creatinine Ratio 25, Glucose Level 109H, Calcium Level 9.3, Corrected Calcium 9.9, Total Bilirubin 0.1, Aspartate Amino Transf (AST/SGOT) 18, Alanine Aminotransferase (ALT/SGPT) 26, Alkaline Phosphatase 72, Total Protein 6.7, Albumin 3.2, Smear Scan YES Microbiology 06/14/22 Blood Culture - Final, Complete No growth 06/14/22 Urine Culture - Final, Complete Escherichia coli Strep agalactiae Group B See Comments Pseudomonas aeruginosa Assessment/Plan Assessment/Plan Admission Dx Acute renal failure Acute Urinary Tract infection Chronic Urinary retention with Suprapubic Catheter in place Colostomy status Paraplegia Spinabifida Hypertension Neuropathy Gastroparesis Chronic Seizure Disorder Morbid Obesity Anemia Leukocytosis Chronic Depression and Anxiety GERD Assessment and Plan Acute renal failure Acute Urinary Tract infection with ecoli and pseudomonas Chronic Urinary retention with Suprapubic Catheter in place Left ureteral inflammation vs infection vs mass Colostomy status Paraplegia Spinabifida Hypertension Neuropathy Gastroparesis Chronic Seizure Disorder Morbid Obesity Anemia Leukocytosis Chronic Depression and Anxiety GERD Acute renal failure with Acute Urinary Tract infection with ecoli and pseudomonas Chronic Urinary retention with Suprapubic Catheter in place - pt is status post replacement of Catheter in the past week with urinary r etention as a result of delayed placement of catheter - this likely let to current infection - pt on IV antibiotics Cefepime- - STOPPED ON 06/18/22 AND STARTED Levofloxacin as sensitivity profile showed that both ecoli and pseudomonas are sensitive and this can be given orally as outpatient on dc - renal failure now resolved stoped fluids US RENAL ART DOPPLER TIMMY COMP INDICATION: Uncontrolled hypertension. FINDINGS: Performing venetian blind machine operator reports limited exam due to patient body habitus and patient difficulty with breathing instructions. Right kidney measures 13.1 cm in length and left measures 11.6 cm. Cortical thickness and corticomedullary differentiation are maintained. Anechoic benign- appearing cyst is present within the inferior pole of the right kidney and measures 2.6 x 2.3 x 2.4 cm. There is nodular area within the mid region near the inferior pole of the left kidney that measures 3.9 x 2.1 x 3.3 cm and is concerning for potential solid mass. There is no evidence of calculus or hydronephrosis on either side. There is no ascites. Suprapubic catheter is in place. Note is made of cholelithiasis. Doppler evaluation of the renal arteries was also performed. On the right, main renal artery peak systolic velocities range from 53 to 73 cm/s. On the left, these range from 43 to 92 cm/s. Abdominal aorta peak systolic velocity measures 101 cm/s. Ratios are within normal limits. Peak systolic velocities show normal brisk upstroke. Arcuate artery resistive index on the right ranges from 0.57 to 0.68 and on the left from 0.53 to 0.71. IMPRESSION: 1. No duplex evidence of renal artery stenosis on either side. 2. Possible solid mass of the left kidney. Correlation with pre and post contrast CT is advised. 3. Cholelithiasis. (niece Verito Navarro in the room today as I discussed CT findings with Jon - I also placed a call to his [id number] Bertrand Savage - call pending to Jon's mother) Left ureteral inflammation vs infection vs mass MASS in left kidney - CT of abd/pelvis was negative for mass of Kidney - again discussed plan with Jon was discussed with his [id number] - Bertrand Savage on 06/19/22. - Our plan right now will be to repeat a CT scan in 3 weeks to see if the area of concern in the left ureter is resolved after treatment for infection. Colostomy status - supportive care Paraplegia due to Spinabifida - supportive care Hypertension - resumed some of his home medications (pt on hydralazine and losartan - cardiology to adjust metoprolol dosing due to persistent elevation of blood pressure) - dosing of metoprolol increased with several spikes in his bp overnight - cardiology added CLONIDINE 0.1mg on 06/19/22 - renal artery doppler report as above - negative for high resistive indexes - increased hydralazine from 25mg tid to 50mg tid - consult to cardiology - - - BP's significantly improved on clonidine added to current regimen. Elevated Troponin - consult to Dr. Yin - pt on lovenox Neuropathy - resumed gabapentin Gastroparesis - monitor symptoms, restarted low dose Reglan, monitor symptoms Chronic Seizure Disorder - checked keppra level, resumed medication to prevent recurrent seizures Morbid Obesity Anemia - monitor labs - pt on routine iron supplementation Leukocytosis - improved with hydration and treatment of infection Chronic Depression and Anxiety - resumed cymbalta GERD - resumed ppi Due to lethargy - and cough - rechecked covid (there is an outbreak at the local nursing homes) - negative dvt prohpylaxis with scd's and lovenox gi prophylaxis with ppi Admission Dx Acute renal failure Acute Urinary Tract infection Chronic Urinary retention with Suprapubic Catheter in place Colostomy status Paraplegia Spinabifida Hypertension Neuropathy Gastroparesis Chronic Seizure Disorder Morbid Obesity Anemia Leukocytosis Chronic Depression and Anxiety GERD Clinical Quality Measures Admission Status Admission Dx Acute renal failure Acute Urinary Tract infection Chronic Urinary retention with Suprapubic Catheter in place Colostomy status Paraplegia Spinabifida Hypertension Neuropathy Gastroparesis Chronic Seizure Disorder Morbid Obesity Anemia Leukocytosis Chronic Depression and Anxiety GERD MIRIAM SIERRA MD Jun 21, 2022 08:16
[2022-06-21] MEDS: PANTOPRAZOLE 40 MG (PROTONIX) TAB PO SCH ×2 (08:44→21:27)
[2022-06-21] MEDS: METOCLOPRAMIDE 5 MG (REGLAN) TAB PO SCH ×2 (08:44→21:30)
[2022-06-21] MEDS: ALLOPURINOL 100 MG (ZYLOPRIM) TAB PO SCH (08:44)
[2022-06-21] MEDS: DULoxetine 30 MG (CYMBALTA) CAP PO SCH (08:44)
[2022-06-21] MEDS: cloNIDine 0.1 MG (CATAPRES) TAB PO SCH ×3 (08:44→21:27)
[2022-06-21] MEDS: LOSARTAN 100 MG (COZAAR) TABLET PO SCH (08:45)
[2022-06-21] MEDS: meTOprolol TARTRATE 50 MG (LOPRESSOR) TAB PO SCH ×2 (08:45→21:27)
[2022-06-21] MEDS: MICONAZOLE 2% POWDER (DESENEX AF) 90 GM TP SCH ×2 (08:45→21:27)
[2022-06-21] MEDS: amLODIPine 10 MG (NORVASC) TAB PO SCH (08:45)
[2022-06-21] MEDS: hydrALAZINE (APRESOLINE) 25 MG TAB PO SCH ×3 (08:45→21:27)
[2022-06-21] MEDS: ENOXAPARIN 60 MG/0.6 ML (LOVENOX) SYR SC SCH ×2 (10:23→21:28)
[2022-06-21] MEDS: DICLOFENAC 1% GEL 100 GM (VOLTAREN) TUBE TP SCH ×3 (10:24→21:27)
[2022-06-21 11:33] VITALS: BP 132/84
--- NOTE | 2022-06-21 12:29 | Cardiology Progress Note ---
Subjective Date Seen by Provider: Jun 21, 2022 Time Seen by Provider: 10:45 Subjective/Events-last exam no acute issues overnight. BPs stable : 120-140s systolic. Focused Exam Time of Focused Exam: 16:10 Objective-Cardiology Exam Last Set of Vital Signs Vital Signs 06/21/22 06/21/22 08:00 11:33 Temp 36.4 Pulse 74 Resp 20 B/P (MAP) 132/84 (100) Pulse Ox 96 O2 Delivery Room Air O2 Flow Rate 0.50 I&O Intake and Output 06/21/22 00:00 Intake Total 5150 ml Output Total 4125 ml Balance 1025 ml Intake Oral 5150 ml Output Urine Total 3450 ml Stool Total 675 ml General: Alert, Oriented X3, Cooperative HEENT: Atraumatic, PERRLA Neck: Supple, No JVD Lungs: Clear to Auscultation Heart: Regular Rate, Normal S1, Normal S2 Abdomen: Normal Bowel Sounds Extremities: No Clubbing, No Cyanosis Skin: No Rashes, No Breakdown Neuro: Normal Speech Psych/Mental Status: Mood NL Results Lab Laboratory Tests 06/21/22 05:37 A/P-Cardiology Admission Diagnosis Chest pain Type II myocardial infarction UTI Acute renal failure Assessment/Plan ## Urinary tract infection, status post recent placement of suprapubic catheter - cont Levoflox (E.coli and Pseudomonas) - further plans per hospitalist team ## NSTEMI; Tn flat at 0.07 and 0.08; Likely type II NSTEMI in setting of UTI. EKG without acute changes. ECHO without any regional wall motion abnormalities (moderate LVH, EF 55 to 60%, grade 1 diastolic dysfunction, PA pressure 25 to 30 mmHg.). No active complaints currently - f/u with Dr. Yin as outpt in cardiology clinic (for HTN and NsTEMI)- consider stress test as outpatient - conservative management for now. ## Acute on chronic renal failure, resolved - cont to monitor ## Hypertension, On 5 meds (clonidine 0.1mg po TID, norvasc 10mg po QD, losartan 100mg po QD, hydralazine 50mg po TID, metoprolol 100mg po BID). BPs currently stable 110-130s systolic - renal U/S negative for CHANDU - will send off secondary HTN workup (renin/dionicio ratio, urine-serum metanephrines, TSH/FT4, and urine cortisol ordered) - pt states has RYAN and had a CPAP before but insurance wont pay for appropriate mask and tubing- will need to revisit this as this may also be driving his HTN ## Sinus tachycardia, resolved; HRs 60-70 after increase in beta blockade - continue to monitor. ## Diabetes mellitus - as per hospitalist team ## Spina bifida, paraplegia. RAMÍREZ CESPEDES MD Jun 21, 2022 12:29
[2022-06-21 15:19] VITALS: BP 148/86
[2022-06-21 19:42] VITALS: BP 145/87
[2022-06-21] MEDS: ACETAMINOPHEN 500 MG TAB (TYLENOL) PO SCH (21:27)
[2022-06-21 23:26] VITALS: BP 169/81
[2022-06-22 03:33] VITALS: BP 128/85
[2022-06-22] MEDS: inSUlin ASPART (NovoLOG) 1 UNIT/0.01 ML (CHARGE PER UNIT) SC SCH ×2 (05:11→13:09)
[2022-06-22 05:14] LABS: BASOPHILS % (AUTO) 1 % (0-10); EOSINOPHILS # (AUTO) 0.2 10^3/uL (0.0-0.3); EOSINOPHILS % (AUTO) 3 % (0-10); HEMATOCRIT 34 % (40-54); HEMOGLOBIN 11.1 g/dL (13.3-17.7); LYMPHOCYTES # (AUTO) 1.4 10^3/uL (1.0-4.0); LYMPHOCYTES % (AUTO) 22 % (12-44); MEAN CORPUSCULAR HEMOGLOBIN 28 pg (25-34); MEAN CORPUSCULAR HGB CONC 33 g/dL (32-36); MEAN CORPUSCULAR VOLUME 87 fL (80-99); MEAN PLATELET VOLUME 9.3 fL (9.0-12.2); MONOCYTES # (AUTO) 0.3 10^3/uL (0.0-1.0); MONOCYTES % (AUTO) 4 % (0-12); NEUTROPHILS % (AUTO) 62 % (42-75); PLATELET COUNT 272 10^3/uL (130-400); WHITE BLOOD COUNT 6.5 10^3/uL (4.3-11.0)
[2022-06-22] MEDS: AMITRIPTYLINE 10 MG (ELAVIL) TAB PO SCH (05:18)
[2022-06-22] MEDS: GABAPENTIN 400 MG (NEURONTIN) CAP PO SCH ×3 (05:18→13:17)
[2022-06-22] MEDS: LACTOBACILLUS ACIDOPHILUS (PROBIOTIC) CAPSULE PO SCH ×2 (05:18→13:16)
[2022-06-22 05:44] LABS: ALBUMIN 3.5 GM/DL (3.2-4.5); BILIRUBIN,TOTAL 0.1 MG/DL (0.1-1.0); CALCIUM 9.6 MG/DL (8.5-10.1); CREATININE SERUM 1.17 MG/DL (0.60-1.30); POTASSIUM 4.1 MMOL/L (3.6-5.0); TOTAL PROTEIN 7.3 GM/DL (6.4-8.2)
[2022-06-22 07:17] VITALS: BP 129/84
--- NOTE | 2022-06-22 09:00 | Discharge Summary ---
Diagnosis/Chief Complaint Date of Admission Jun 14, 2022 at 16:38 Date of Discharge Discharge Date: Jun 22, 2022 Discharge Time: 09:30 Admission Diagnosis Admission Diagnosis Sepsis Acute renal failure Acute Urinary Tract infection with ecoli and pseudomonas Chronic Urinary retention with Suprapubic Catheter in place Left ureteral inflammation vs infection vs mass Colostomy status Paraplegia Spinabifida Hypertension Neuropathy Gastroparesis Chronic Seizure Disorder Morbid Obesity Anemia Leukocytosis Chronic Depression and Anxiety GERD Discharge Diagnosis Sepsis Acute renal failure Acute Urinary Tract infection with ecoli and pseudomonas Chronic Urinary retention with Suprapubic Catheter in place Left ureteral inflammation vs infection vs mass Colostomy status Paraplegia Spinabifida Hypertension Neuropathy Gastroparesis Chronic Seizure Disorder Morbid Obesity Anemia Leukocytosis Chronic Depression and Anxiety GERD Reason Hospital Visit Jon is a 36 y/o male who is well known to me from clinic. 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 Jon resides at [facility] and rehab with his spouse and was in his usual state of health until his catheter was changed last week. The staff changed his catheter in the middle of the night, was unable to replace the catheter, he was sent to [place] ER and then up to when the suprapubic catheter could not be appropriately replaced at the local ER. At the catheter was successfully placed and Jon was transferred back to [facility] and rehab. He started to have symptoms of illness, fever, confusion, and lethargy, was transferred to the ER at [facility] on 06/14/22, and found to have acute renal failure and UTI with need for IV antibiotics. Discharge Summary Consultations Dr. Yin Discharge Physical Examination Allergies: Coded Allergies: latex (Verified Allergy, Unknown, 09/06/18) Vitals & I&Os Vital Signs Date Time Temp Pulse Resp B/P (MAP) Pulse Ox O2 Delivery O2 Flow Rate FiO2 06/22/22 07:17 37.4 64 18 129/84 (99) 98 Room Air 06/22/22 03:33 0.00 0.00 General Appearance: Alert, Oriented X3, Cooperative, No Acute Distress HEENT: PERRLA, Mucous Memb Moist/[place], Other (surgical scars on scalp) Respiratory: Clear to Auscultation, Normal Air Movement Cardiovascular: Regular Rate Abdominal: Normal Bowel Sounds, Soft, No Tenderness Extremities: No Cyanosis Skin: No Breakdown Neuro: Normal Speech Psych/Mental Status: Mental Status NL, Mood NL Hospital Course Was the Problem List Reviewed?: Yes Acute renal failure Acute Urinary Tract infection with ecoli and pseudomonas Chronic Urinary retention with Suprapubic Catheter in place Left ureteral inflammation vs infection vs mass Colostomy status Paraplegia Spinabifida Hypertension Neuropathy Gastroparesis Chronic Seizure Disorder Morbid Obesity Anemia Leukocytosis Chronic Depression and Anxiety GERD Acute renal failure with Sepsis from Acute Urinary Tract infection with ecoli and pseudomonas Chronic Urinary retention with Suprapubic Catheter in place - pt is status post replacement of Catheter in the past week with urinary retention as a result of delayed placement of catheter - this likely let to current infection - pt on IV antibiotics Cefepime- - STOPPED ON 06/18/22 AND STARTED Levofloxacin as sensitivity profile showed that both ecoli and pseudomonas are sensitive and this can be given orally as outpatient on dc - renal failure now resolved stopped fluids US RENAL ART DOPPLER TIMMY COMP INDICATION: Uncontrolled hypertension. FINDINGS: Performing management trainee reports limited exam due to patient body habitus and patient difficulty with breathing instructions. Right kidney measures 13.1 cm in length and left measures 11.6 cm. Cortical thickness and corticomedullary differentiation are maintained. Anechoic benign- appearing cyst is present within the inferior pole of the right kidney and measures 2.6 x 2.3 x 2.4 cm. There is nodular area within the mid region near the inferior pole of the left kidney that measures 3.9 x 2.1 x 3.3 cm and is concerning for potential solid mass. There is no evidence of calculus or hydronephrosis on either side. There is no ascites. Suprapubic catheter is in place. Note is made of cholelithiasis. Doppler evaluation of the renal arteries was also performed. On the right, main renal artery peak systolic velocities range from 53 to 73 cm/s. On the left, the se range from 43 to 92 cm/s. Abdominal aorta peak systolic velocity measures 101 cm/s. Ratios are within normal limits. Peak systolic velocities show normal brisk upstroke. Arcuate artery resistive index on the right ranges from 0.57 to 0.68 and on the left from 0.53 to 0.71. IMPRESSION: 1. No duplex evidence of renal artery stenosis on either side. 2. Possible solid mass of the left kidney. Correlation with pre and post contrast CT is advised. 3. Cholelithiasis. (niece Verito Navarro in the room today as I discussed CT findings with Jon - I also placed a call to his [id number] Bertrand Savage - call pending to Jon's mother) Left ureteral inflammation vs infection vs mass MASS in left kidney - CT of abd/pelvis was negative for mass of Kidney - again discussed plan with Jon and the plan was discussed with his [id number] - Bertrand Savage on 06/19/22. - Our plan right now will be to repeat a CT scan in 3 weeks to see if the area of concern in the left ureter is resolved after treatment for infection. Colostomy status - supportive care Paraplegia due to Spinabifida - supportive care Hypertension - resumed some of his home medications (pt on hydralazine and losartan - cardiology to adjust metoprolol dosing due to persistent elevation of blood pressure) - dosing of metoprolol increased with several spikes in his bp overnight - cardiology added CLONIDINE 0.1mg on 06/19/22 - renal artery doppler report as above - negative for high resistive indexes - increased hydralazine from 25mg tid to 50mg tid - consult to cardiology - - - BP's significantly improved on clonidine added to current regimen. Elevated Troponin type II AZ - consult to Dr. Yin - pt on lovenox Neuropathy - resumed gabapentin Gastroparesis - monitor symptoms, restarted low dose Reglan, monitor symptoms Chronic Seizure Disorder - checked keppra level, resumed medication to prevent recurrent seizures Morbid Obesity Anemia - stable monitor labs as outpatient - pt on routine iron supplementation Leukocytosis - resolved with hydration and treatment of infection Chronic Depression and Anxiety - resumed cymbalta GERD - resumed ppi Pending Labs Laboratory Tests 06/22/22 05:06: Glucometer 100 06/22/22 05:07: White Blood Count 6.5, Red Blood Count 3.93, Hemoglobin 11.1, Hematocrit 34, Mean Corpuscular Volume 87, Mean Corpuscular Hemoglobin 28, Mean Corpuscular Hemoglobin Concent 33, Red Cell Distribution Width 13.2, Platelet Count 272, Mean Platelet Volume 9.3, Immature Granulocyte % (Auto) 8, Neutrophils (%) (Auto) 62, Lymphocytes (%) (Auto) 22, Monocytes (%) (Auto) 4, Eosinophils (%) (Auto) 3, Basophils (%) (Auto) 1, Neutrophils # (Auto) 4.0, Lymphocytes # (Auto) 1.4, Monocytes # (Auto) 0.3, Eosinophils # (Auto) 0.2, Basophils # (Auto) 0.0, Immature Granulocyte # (Auto) 0.5, Sodium Level 143, Potassium Level 4.1, Chloride Level 110, Carbon Dioxide Level 21, Anion Gap 12, Blood Urea Nitrogen 25, Creatinine 1.17, Estimat Glomerular Filtration Rate 84, BUN/Creatinine Ratio 21, Glucose Level 104, Calcium Level 9.6, Corrected Calcium 10.0, Total Bilirubin 0.1, Aspartate Amino Transf (AST/SGOT) 16, Alanine Aminotransferase (ALT/SGPT) 23, Alkaline Phosphatase 75, Total Protein 7.3, Albumin 3.5 Discharge Condition at discharge improved Instructions to patient/family Please see electronic discharge instructions given to patient. Discharge Medications Reviewed and agree with Discharge Medication list on patient's Discharge Instruction sheet MIRIAM SIERRA MD Jun 22, 2022 09:00
[2022-06-22] MEDS ORDERED: HYDR-3924 PO (09:09)
[2022-06-22] MEDS ORDERED: LEVO750T PO (09:09)
[2022-06-22] MEDS ORDERED: AMLO-251 PO (09:09)
[2022-06-22] MEDS ORDERED: CLN.1T PO (09:09)
[2022-06-22] MEDS ORDERED: METO100T12 PO (09:09)
[2022-06-22] MEDS ORDERED: ACHD5005 PO (09:09)
--- NOTE | 2022-06-22 09:12 | Discharge Inst-Skilled Nursing ---
Discharge Inst-Skilled NF Reconcile Patient Problems Problems Reviewed?: Yes Patient Instructions Patient Problems: Sepsis Acute renal failure Acute Urinary Tract infection with ecoli and pseudomonas Chronic Urinary retention with Suprapubic Catheter in place Left ureteral inflammation vs infection vs mass Colostomy status Paraplegia Spinabifida Hypertension Neuropathy Gastroparesis Chronic Seizure Disorder Morbid Obesity Anemia Leukocytosis Chronic Depression and Anxiety GERD Goal: increased strength Consult/Follow Up/Orders Skilled NF Admit to: [facility] Certification (SNF) I certify that SNF services are required to be given on an inpatient basis because of the above named patient's need for snf care on a continuing basis for the conditions(s) for which he/she was receiving inpatient hospital services prior to his/her transfer to the SNF. [facility] Facility Order: Nursing Services, Obstetrical Nurse-Evaluate & Treat, Physical Therapy-Evaluate & Treat Oxygen Delivery Method: Room Air Discharge Diet: Regular Diet Daily Activity as Tolerated: Yes Resuscitation Status: Full Code New & Resume Previous Orders New & Resume Previous Orders cbc, cmp in 1 wk from discharge plan will be for a repeat CT scan in 3 weeks from discharge, order written, Chika will need to schedule Anila Nuñez Jun 22, 2022 09:11 ANILA NUÑEZ MD Jun 22, 2022 09:12
[2022-06-22] MEDS: meTOprolol TARTRATE 50 MG (LOPRESSOR) TAB PO SCH (10:10)
[2022-06-22] MEDS: DULoxetine 30 MG (CYMBALTA) CAP PO SCH (10:10)
[2022-06-22] MEDS: METOCLOPRAMIDE 5 MG (REGLAN) TAB PO SCH (10:11)
[2022-06-22] MEDS: LOSARTAN 100 MG (COZAAR) TABLET PO SCH (10:11)
[2022-06-22] MEDS: cloNIDine 0.1 MG (CATAPRES) TAB PO SCH (10:11)
[2022-06-22] MEDS: hydrALAZINE (APRESOLINE) 25 MG TAB PO SCH ×2 (10:11→13:17)
[2022-06-22] MEDS: amLODIPine 10 MG (NORVASC) TAB PO SCH (10:11)
[2022-06-22] MEDS: PANTOPRAZOLE 40 MG (PROTONIX) TAB PO SCH (10:11)
[2022-06-22] MEDS: ALLOPURINOL 100 MG (ZYLOPRIM) TAB PO SCH (10:11)
[2022-06-22] MEDS: ENOXAPARIN 60 MG/0.6 ML (LOVENOX) SYR SC SCH (10:12)
[2022-06-22] MEDS: DICLOFENAC 1% GEL 100 GM (VOLTAREN) TUBE TP SCH ×2 (10:19→14:56)
[2022-06-22] MEDS: MICONAZOLE 2% POWDER (DESENEX AF) 90 GM TP SCH (10:19)
[2022-06-22 12:02] VITALS: BP 140/77
[2022-06-22] MEDS ORDERED: cloNIDine 0.1 MG (CATAPRES) TAB PO SCH (13:00)
[2022-06-22] MEDS ORDERED: cloNIDine 0.2 MG (CATAPRES) TAB PO SCH (13:00)
--- NOTE | 2022-06-22 13:21 | Cardiology Progress Note ---
Subjective Date Seen by Provider: Jun 22, 2022 Time Seen by Provider: 10:30 Subjective/Events-last exam No acute issues overnight. Pt being discharged today. SBP slightly higher today up to 160s/high 80s Focused Exam Time of Focused Exam: 16:10 Objective-Cardiology Exam Last Set of Vital Signs Vital Signs 06/22/22 06/22/22 03:33 12:02 Temp 36.4 Pulse 68 Resp 18 B/P (MAP) 140/77 (98) Pulse Ox 96 O2 Delivery Room Air O2 Flow Rate 0.00 0.00 I&O Intake and Output 06/22/22 00:00 Intake Total 3200 ml Output Total 5200 ml Balance -2000 ml Intake Oral 3200 ml Output Urine Total 4300 ml Stool Total 900 ml General: Alert, Oriented X3, Cooperative, No Acute Distress HEENT: PERRLA, Mucous Memb Moist/[place], Other (surgical scars on scalp) Neck: Supple, No JVD Lungs: Clear to Auscultation, Normal Air Movement Heart: Regular Rate Abdomen: Normal Bowel Sounds, Soft, No Tenderness Extremities: No Cyanosis Skin: No Breakdown Neuro: Normal Speech Psych/Mental Status: Mental Status NL, Mood NL Results Lab Laboratory Tests 06/22/22 05:07 A/P-Cardiology Admission Diagnosis Chest pain Type II myocardial infarction UTI Acute renal failure Assessment/Plan ## Urinary tract infection, status post recent placement of suprapubic catheter - cont Levoflox (E.coli and Pseudomonas) - further plans per hospitalist team ## NSTEMI; Tn flat at 0.07 and 0.08; Likely type II NSTEMI in setting of UTI. EKG without acute changes. ECHO without any regional wall motion abnormalities (moderate LVH, EF 55 to 60%, grade 1 diastolic dysfunction, PA pressure 25 to 30 mmHg.). No active complaints currently - f/u with Dr. Yin as outpt in cardiology clinic (for HTN and NsTEMI)- consider stress test as outpatient - conservative management for now. ## Acute on chronic renal failure, resolved - cont to monitor ## Hypertension, On 5 meds (clonidine 0.1mg po TID, norvasc 10mg po QD, losartan 100mg po QD, hydralazine 50mg po TID, metoprolol 100mg po BID). BPs up from 110-130s systolic yesterday to 120-160/high 80s over past 24 hours. - increase clonidine to 0.2mg po TID - renal U/S negative for CHANDU - f/u secondary HTN workup (renin/dionicio ratio, urine-serum metanephrines, TSH/FT4, and urine cortisol ordered) - pt states has RYAN and had a CPAP before but insurance wont pay for appropriate mask and tubing- will need to revisit this as this may also be driving his HTN ## Sinus tachycardia, resolved; HRs 60-70 after increase in beta blockade - continue to monitor. ## Diabetes mellitus - as per hospitalist team ## Spina bifida, paraplegia. RAMÍREZ CESPEDES MD Jun 22, 2022 13:20
== END 2022-06-22 14:15 | DRG 871 ==
LOC: EDUNIT# 14:14 → ER 14:15 → 4TH 16:38
PROVIDERS: ADMIT Family Medicine; ATTEND Family Medicine
DX: A41.51 Sepsis due to Escherichia coli [E. coli] (principal); I21.A1 Myocardial infarction type 2; N39.0 Urinary tract infection, site not specified; N17.9 Acute kidney failure, unspecified; G82.20 Paraplegia, unspecified; E87.1 Hypo-osmolality and hyponatremia; Z68.43 Body mass index [BMI] 50.0-59.9, adult; Q05.4 Unspecified spina bifida with hydrocephalus; A41.52 Sepsis due to Pseudomonas; Z20.822 Contact with and (suspected) exposure to COVID-19; R33.9 Retention of urine, unspecified; R09.02 Hypoxemia; N31.9 Neuromuscular dysfunction of bladder, unspecified; I12.9 Hypertensive chronic kidney disease with stage 1 through stage 4 chronic kidney disease, or unspecified chronic kidney disease; E11.22 Type 2 diabetes mellitus with diabetic chronic kidney disease; N18.9 Chronic kidney disease, unspecified; E11.40 Type 2 diabetes mellitus with diabetic neuropathy, unspecified; E11.43 Type 2 diabetes mellitus with diabetic autonomic (poly)neuropathy; K31.84 Gastroparesis; G40.909 Epilepsy, unspecified, not intractable, without status epilepticus; M10.9 Gout, unspecified; F32.A Depression, unspecified; J45.909 Unspecified asthma, uncomplicated; E66.01 Morbid (severe) obesity due to excess calories; R00.0 Tachycardia, unspecified; N28.89 Other specified disorders of kidney and ureter; Z93.3 Colostomy status; Z93.2 Ileostomy status; Z98.2 Presence of cerebrospinal fluid drainage device
CPT/HCPCS: 36415; 71045; 74178; 76770; 80053; 80177; 81000; 82088; 82150; 82947; 83605; 83690; 83735; 83835; 83874; 83880; 84244; 84439; 84443; 84484; 84585; 85025; 85379; 85610; 85652; 85730; 86141; 87040; 87077; 87088; 87186; 87636; 93005; 93041; 93306; 93975; 94664; 94760

== ENCOUNTER → 2022-07-13 | Outpatient (CLI) | payer MEDICARE, MEDICAID ==
[~2022-07-13] MED LIST changes: +ALPR0.5T7 PO; +AMLO-251 PO; +AMT10T PO; +CATHETER FLUSH 10 ML SYR IV PRN; +CLN.1T PO; +D ME PO; +DICL100G13 TP; +FERR-74 PO; +GABA800T10 PO; +HOLD METFORMIN - RECEIVED CONTRAST 20 ML VIAL IV SCH; +HYDR-3923 PO; +HYDR-3924 PO; +HYDR453. TP; +IOHEXOL 350 MG/ML 100 ML (OMNIPAQUE 350) VIAL IV ONE; +LEVO750T PO; +LOSA100T57 PO; +METO100T12 PO; +METO50TA15 PO; +METO5TAB2 PO; +MICO85PO4 TP; +NS 100 ML (IVPB) BAG IV ONE; +OLIV30OI OU; +ONDA-105 PO; +PECT2.8L4 MM; +SIME125C PO; +SULF1TAB38 PO; +TRZ50T PO; +[UNRECOGNIZED DRUG - CODE] TP; +[UNRECOGNIZED DRUG - OTHER] PO
--- NOTE | 2022-07-13 14:11 | Diagnostic Imaging Report ---
EXAMINATION: CT abdomen and pelvis with intravenous contrast. TECHNIQUE: Multiple contiguous axial images were obtained through the abdomen and pelvis after the uneventful administration of intravenous contrast. All CT scans use one or more of the following dose optimizing techniques: automated exposure control, MA and/or KvP adjustment based on patient size and exam type or iterative reconstruction. HISTORY: Other specified disorders of kidney and ureter COMPARISON: 06/19/2022 FINDINGS: Lung bases: Bibasilar dependent atelectasis. Solid organs: The liver is normal without focal lesion. The gallbladder is normal. There is no biliary ductal dilation. Pancreas is normal. Spleen is normal. Adrenal glands are normal. The kidneys have a nodular contour which may be secondary to combination of lobulation and superimposed cortical scarring. No hydronephrosis. Bowel: Surgical changes of the stomach and small bowel. Multiple loops of bowel are present in the large ventral abdominal wall hernia. There are mildly dilated loops of small bowel within the hernia measuring up to 3.4 cm. Surgical changes of the colon with a right lower quadrant ostomy. Peritoneum: There is no intraperitoneal free fluid or free air. There are a few redemonstrated prominent retroperitoneal lymph nodes present with the largest measuring 1.3 x 1.2 cm (previous 1.6 x 1.6 cm). This is slightly decreased in size from prior exam. There is mild haziness of the mesentery with a few prominent lymph nodes. Vasculature: Normal without aneurysm. Musculoskeletal: Degenerative changes of the spine without suspicious osseous lesion or compression fracture. Pelvis: The prostate gland is normal. A suprapubic catheter is present within the urinary bladder. IMPRESSION: 1. Surgical changes of the small bowel and colon with multiple loops of bowel present within the large ventral abdominal wall hernia. Mild dilation of a few of the loops within the hernia could be seen with a partial small bowel obstruction. 2. Haziness of the mesentery which is increased from prior exam with multiple small mesenteric and retroperitoneal lymph nodes. These findings are nonspecific. Dictated by: Dictated on workstation # [id number]
== END ==
LOC: RAD 11:15
PROVIDERS: ATTEND Family Medicine
DX: N28.89 Other specified disorders of kidney and ureter (principal)
CPT/HCPCS: 74177

== ENCOUNTER 2022-09-08 12:33 | Emergency (ER) | payer MEDICARE, MEDICAID ==
[~2022-09-08 12:33] MED LIST changes: -CATHETER FLUSH 10 ML SYR IV PRN; -HOLD METFORMIN - RECEIVED CONTRAST 20 ML VIAL IV SCH; -IOHEXOL 350 MG/ML 100 ML (OMNIPAQUE 350) VIAL IV ONE; -NS 100 ML (IVPB) BAG IV ONE
[2022-09-08] MEDS ORDERED: LIDOCAINE 2% VISCOUS 15 ML UDC ONE (16:32)
[2022-09-08] MEDS ORDERED: CIPROFLOXACIN 500 MG (CIPRO) TABLET PO STA (16:58)
--- NOTE | 2022-09-08 17:06 | ED GU-Male ---
General Chief Complaint: Catheter/Drain/Tube Problems Stated Complaint: CATHETER ISSUE Nursing Triage Note: PT TO ED IN [facility] FROM [facility]. PT HAS SUPRAPUBIC CATHETER AND NURSE WAS UNABLE TO PLACE IT WHILE DOING A ROUTINE CHANGE SHORTLY AFTER 1100 TODAY. Source: patient Exam Limitations: no limitations Allergies and Home Medications Allergies Coded Allergies: latex (Verified Allergy, Unknown, 09/06/18) Patient Home Medication List Acetaminophen (Tylenol Extra Strength) 500 Mg Tablet, 500 MG PO HS, (Reported) Entered as Reported by: ESTEBAN WHITING on 05/13/18 0935 Acetaminophen (Tylenol Extra Strength) 500 Mg Tablet, 1,000 MG PO Q8H PRN for PAIN-MILD (1-4), (Reported) Entered as Reported by: BENI CRAFT on 06/15/22 112 Allopurinol (Allopurinol) 100 Mg Tablet, 100 MG PO DAILY, (Reported) Entered as Reported by: ESTEBAN WHITING on 05/13/18 0935 Alprazolam (Alprazolam) 0.5 Mg Tablet, 0.5 MG PO TID PRN for ANXIETY, (Reported) Entered as Reported by: BENI CRAFT on 06/15/22 112 Amitriptyline HCl (Amitriptyline HCl) 10 Mg Tablet, 5 MG PO 0600,1800, (Reported) Entered as Reported by: BENI CRAFT on 06/15/22 1123 Amlodipine Besylate (Amlodipine Besylate) 10 Mg Tablet, 10 MG PO DAILY Prescribed by: MIRIAM SIERRA on 06/22/22 09 Cetirizine HCl (Zyrtec) 10 Mg Tablet, 10 MG PO DAILY PRN for ALLERGY SYMPTOMS, (Reported) Entered as Reported by: ESTEBAN WHITING on 05/13/18 0935 Ciprofloxacin HCl (Ciprofloxacin HCl) 500 Mg Tablet, 500 MG PO BID Prescribed by: SANIYA ROSADO on 09/08/22 1707 Clonidine HCl (Clonidine HCl) 0.1 Mg Tablet, 0.1 MG PO TID Prescribed by: MIRIAM SIERRA on 06/22/22 09 D-Methorphan/Acetamin/Doxylamn (Vicks Nyquil Liquicaps) 15 Mg-325 Mg-6.25 Mg Capsule, 1 EACH PO HS PRN for SINUS CONGESTION, (Reported) Entered as Reported by: BENI CRAFT on 06/15/22 112 Diclofenac Sodium (Diclofenac Sodium) 1 % Gel..gram., 2 GM TP 1000,1400,2000, (Reported) Entered as Reported by: BENI CRAFT on 06/15/22 112 Diclofenac Sodium (Diclofenac Sodium) 1 % Gel..gram., 4 GM TP Q4H PRN for PAIN- BREAKTHROUGH, (Reported) Entered as Reported by: BENI CRAFT on 06/15/22 112 Dm/PE/Acetaminophen/Doxylamine (Vicks Dayquil-Nyquil Cold-Flu) 10-5-325MG Cap.seq, 1 EACH PO EVERY 20 HOURS, (Reported) Entered as Reported by: BENI CRAFT on 06/15/22 112 Duloxetine HCl (Cymbalta) 30 Mg Capsule.dr, 30 MG PO DAILY, (Reported) Entered as Reported by: ESTEBAN WHITING on 05/13/18 0935 Ferrous Sulfate (Ferrous Sulfate) 325 Mg (65 Mg Iron) Tablet, 325 MG PO BID, (Reported) Entered as Reported by: BENI CRAFT on 06/15/22 112 Fluticasone Propionate (Fluticasone Propionate) 50 Mcg/Actuation [place].susp, 1 SPRAY NSEACH Q12H PRN for ALLERGY SYMPTOMS, (Reported) Entered as Reported by: ESTEBAN WHITING on 05/13/18 0935 Gabapentin (Gabapentin) 800 Mg Tablet, 800 MG PO 0600,1000,1400, (Reported) Entered as Reported by: BENI CRAFT on 06/15/22 112 Hydralazine HCl (Hydralazine HCl) 50 Mg Tablet, 50 MG PO TID Prescribed by: MIRIAM SIERRA on 06/22/22 0909 Hydrocodone/Acetaminophen (Hydrocodone-Acetamin 5-325 mg) 5 Mg-325 Mg Tablet, 1- 2 EA PO Q6H PRN for PAIN-MODERATE (5-7), (Reported) Entered as Reported by: BENI CRAFT on 06/15/22 112 Hydrocodone/Acetaminophen (Hydrocodone-Acetamin 5-325 mg) 5 Mg-325 Mg Tablet, 1 EA PO 1700 Prescribed by: MIRIAM SIERRA on 06/22/22 0910 Hydrocortisone (Hydrocortisone) 1 % Cream..g., 1 APPLIC TP DAILY PRN for ITCHING, (Reported) Entered as Reported by: BENI CRAFT on 06/15/22 1123 L. Acidophilus/L.bulgaricus (Lactobacillus Tablet) 1 Million Cell Tablet, 1 TAB PO 0600,1400, (Reported) Entered as Reported by: ESTEBAN WHITING on 05/13/18 0935 Levetiracetam (Keppra) 500 Mg Tablet, 1,500 MG PO BID, (Reported) Entered as Reported by: ESTEBAN WHITING on 05/13/18 0935 Levofloxacin (Levofloxacin) 750 Mg Tablet, 750 MG PO DAILY@0900 Prescribed by: MIRIAM SIERRA on 06/22/22 0909 Lidocaine/Menthol (Lidocaine-Menthol 4%-1% Gel) 4 %-1 % Gel..gram., 1 APPLIC TP 0600,1000,1400, (Reported) Entered as Reported by: BENI CRAFT on 06/15/22 1123 Losartan Potassium (Losartan Potassium) 100 Mg Tablet, 100 MG PO DAILY, (Reported) Entered as Reported by: BENI CRAFT on 06/15/22 112 Menthol (Biofreeze) 4 % Gel..ml., 1 APPLIC TP Q4H PRN for PAIN-BREAKTHROUGH, (Reported) Entered as Reported by: BENI CRAFT on 06/15/22 1123 Metoclopramide HCl (Metoclopramide HCl) 5 Mg Tablet, 5 MG PO BID, (Reported) Entered as Reported by: BENI CRAFT on 06/15/22 112 Metoclopramide HCl (Metoclopramide HCl) 5 Mg Tablet, 2.5 MG PO BID PRN for GERD, (Reported) Entered as Reported by: BENI CRAFT on 06/15/22 1123 Metoprolol Tartrate (Metoprolol Tartrate) 100 Mg Tablet, 100 MG PO BID Prescribed by: MIRIAM SIERRA on 06/22/22 0909 Miconazole Nitrate (Remedy Antifungal) 2 % Powder, 1 APPLIC TP BID, (Reported) Entered as Reported by: BENI CRAFT on 06/15/22 1123 Multivitamin (Daily Value) 1 Each Tablet, 1 EA PO DAILY, (Reported) Entered as Reported by: ESTEBAN WHITING on 09/07/18 1209 [place] Oil (Sweet Oil) 30 Ml Oil, 2 DROP OU ROSALINO, (Reported) Entered as Reported by: BENI CRAFT on 06/15/22 1123 Ondansetron HCl (Ondansetron HCl) 4 Mg Tablet, 4 MG PO Q8H PRN for NAUSEA/VOMITING-1ST LINE, (Reported) Entered as Reported by: BENI CRAFT on 06/15/22 1123 Pantoprazole Sodium (Protonix) 40 Mg Tablet.dr, 40 MG PO BID, (Reported) Entered as Reported by: ESTEBAN WHITING on 05/13/18 0935 Pectin (Throat Drops) 2.8 Mg Lozenge, 2.8 MG MM EVERY 2 HOURS PRN for SORE THROAT, (Reported) Entered as Reported by: BENI CRAFT on 06/15/22 1123 Simethicone (Gas-X) 125 Mg Capsule, 125 MG PO TID PRN for GAS, (Reported) Entered as Reported by: BENI CRAFT on 06/15/22 1123 Trazodone HCl (Trazodone HCl) 50 Mg Tablet, 50 MG PO HS, (Reported) Entered as Reported by: BENI CRAFT on 06/15/22 1123 Past Gwxtrno-Rslcpy-Vnuxfj Hx Patient Social History Tobacco Use?: No Use of E-Cig and/or Vaping dev: No Substance use?: No Alcohol Use?: No Pt feels they are or have been: No Immunizations Up To Date Tetanus Booster (TDap): Unknown PED Vaccines UTD: Yes Influenza Vaccine Up-to-Date: Yes; Up-to-Date First/Initial COVID19 Vaccinat: 05/31/2020 Second COVID19 Vaccination [place]: 06/20/2020 Third COVID19 Vaccination Date: 05/31/2020 Seasonal Allergies Seasonal Allergies: Yes Past Medical History Surgery/Hospitalization HX: GAME ADVISOR SHUNT, COLOSTOMY, SUPRAPUBIC CATHETER, MULTIPLE ABDOMINAL SX. SPINABIFIDA, GOUT, HTN, SEIZURES, HRN, NEUROGENIC BLADDER, NIDDM, NON-AMBULATORY, DEPRESSION. Surgeries: Yes Abdominal, Bladder Surgery, Brain Shunt, Neurological Respiratory: Yes Asthma Currently Using CPAP: No Currently Using BIPAP: No Cardiac: Yes Hypertension Neurological: Yes (SPINA BIFIDA--NON-AMBULATORY; HYDRCEPHALUS WITH GAME ADVISOR SHUNT) Seizure Disorder Sexually Transmitted Disease: No HIV/AIDS: No Genitourinary: Yes (SUPRAPUBIC CATHETER; RENAL FAILURE WITH BOWEL PERFORATION) Renal Failure, Neurogenic Bladder Gastrointestinal: Yes (ILEOSTOMY/COLOSTOMY FOR BOWEL PERFORATION; MULTIPLE ABDOMINAL SURGERIES) Abdominal Hernia Musculoskeletal: Yes (SPINA BIFIDA WITH PARAPLEGIA; CHRONIC RIGHT HIP DISLOCATION NOTED ON CT; ) Endocrine: Yes (MORBID OBESITY) Diabetes, Non-Insulin dep HEENT: No Loss of Vision: Denies Hearing Impairment: Denies Cancer: No Psychosocial: Yes Anxiety, Depression Integumentary: Yes (DECUBITUS ULCERS;HX CHRONIC ABD WOUNDS POST OP) Blood Disorders: Yes (ANEMIA) Family Medical History Patient reports no known family medical history. No Pertinent Family Hx, Other Conditions/Hx SOCIAL HISTORY: -DENIES SMOKING -DENIES DRUG USE -OCCASIONAL ALCOHOL USE PAST SURGICAL HISTORY: -MULTIPLE ABDOMINAL SURGERIES FOR BOWEL OBSTRUCTIONS, CHRONIC ABDOMINAL WOUNDS, BOWEL PERFORATION -PERMANENT ILEOSTOMY/COLOSTOMY FOR BOWEL PERFORATION -PERMANENT SUPRAPUBIC CATHETER -GAME ADVISOR SHUNT FOR HYDROCEPHALUS - Physical Exam Vital Signs Vital Signs - First Documented 09/08/22 12:38 Temp 36.5 Pulse 81 Resp 16 B/P (MAP) 154/108 (123) Pulse Ox 96 O2 Delivery Room Air Capillary Refill : Less Than 3 Seconds Height, Weight, BMI Height: 5'4.00" Weight: 278lbs. 11.2oz. 126.582224ne; 55.29 BMI Method:Stated Progress/Results/Core Measures Suspected Sepsis SIRS Temperature: Pulse: 81 Respiratory Rate: 16 Blood Pressure 154 /108 Mean: 123 Results/Orders My Orders Orders - SANIYA JEFF MD Lidocaine 2% Viscous 15 Ml (Xylocaine Vi (09/08/22 16:32) Ciprofloxacin Tablet (Cipro Tablet) (09/08/22 16:58) Vital Signs/I&O 09/08/22 12:38 Temp 36.5 Pulse 81 Resp 16 B/P (MAP) 154/108 (123) Pulse Ox 96 O2 Delivery Room Air Capillary Refill : Less Than 3 Seconds Blood Pressure Mean: 123 Departure Impression Primary Impression: Mechanical complication of suprapubic catheter Qualified Codes: T83.090A - Other mechanical complication of cystostomy catheter, initial encounter Disposition: 01 HOME, SELF-CARE Condition: Stable Departure-Patient Inst. Referrals: MIRIAM SIERRA MD (PCP/Family) Primary Care Physician Patient Instructions: How to Care for Your Suprapubic Urinary Catheter Add. Discharge Instructions: You are being prescribed 3 days of antibiotics to help prevent infection because of the disruption to your suprapubic catheter site and irritation of the skin. Please complete antibiotics as prescribed. New catheters are being ordered for you and arrangements will be made to have catheter replaced in outpatient surgery on Wednesday or when the catheters arrive. Until then, keep the current catheter in place and empty the catheter bag frequently. Return to the emergency room if you have further complications with the catheter such as blockage, pain, etc.. All discharge instructions reviewed with patient and/or family. Voiced understanding. Scripts Ciprofloxacin HCl (Ciprofloxacin HCl) 500 Mg Tablet 500 MG PO BID, #6 TAB Prov: SANIYA JEFF MD 09/08/22 SANIYA JEFF MD Sep 08, 2022 17:06
[2022-09-08] MEDS ORDERED: CIPR500T5 PO (17:07)
[2022-09-08 19:00] VITALS: BP 154/108
== END 2022-09-08 19:00 | disposition home or self-care (01) ==
LOC: EDUNIT# 12:33 → ER 12:35
DX: T83.090A Other mechanical complication of cystostomy catheter, initial encounter (principal); E66.01 Morbid (severe) obesity due to excess calories; Z68.43 Body mass index [BMI] 50.0-59.9, adult; Z91.040 Latex allergy status
CPT/HCPCS: 51702

== ENCOUNTER 2022-09-09 13:16 | Outpatient (CLI) | payer MEDICARE, MEDICAID ==
[~2022-09-09] VITALS: Ht 157.5 cm; Wt 127.3 kg
[~2022-09-09 13:16] MED LIST changes: +CIPR500T5 PO; -LIDO76.5 TP; +LIDO76.56 TP
[2022-09-09 13:48] VITALS: BP 163/116
--- NOTE | 2022-09-09 15:56 | History & Physical-Surgical ---
History of Present Illness History of Present Illness Reason for visit/HPI CC: suprapubic catheter dislodged. Patient is a 36 year old male with suprapubic cathter. Was having it exchanged at his facility yesterday and was unable to get new one placed. He went to ED yesterday and was not able to place have one replaced that had a balloon due to availability of latex free catheter. They were able to place one without balloon and had it secured. Patient had appropriate catheter obtained. Here to have it replaced. Denies any complaints at this time. Denies n/v fever sweats chills shortness of breath or chest pain. Date of Admission T Date Seen by a Provider: Sep 09, 2022 Time Seen by a Provider: 13:58 I consulted on this patient on 09/09/22 15:51 Attending Physician Miriam Nuñez MD Admitting Physician Admitting Physician: Attending Physician: Monty Stanley DO Consult Allergies and Home Medications Allergies Coded Allergies: latex (Verified Allergy, Unknown, 09/06/18) Patient Home Medication List Home Medication List Reviewed: Yes Acetaminophen (Tylenol Extra Strength) 500 Mg Tablet, 500 MG PO HS, (Reported) Entered as Reported by: ESTEBAN WHITING on 05/13/18 0935 Acetaminophen (Tylenol Extra Strength) 500 Mg Tablet, 1,000 MG PO Q8H PRN for PAIN-MILD (1-4), (Reported) Entered as Reported by: BENI CRAFT on 06/15/22 1123 Allopurinol (Allopurinol) 100 Mg Tablet, 100 MG PO DAILY, (Reported) Entered as Reported by: ESTEBAN WHITING on 05/13/18 0935 Alprazolam (Alprazolam) 0.5 Mg Tablet, 0.5 MG PO TID PRN for ANXIETY, (Reported) Entered as Reported by: BENI CRAFT on 06/15/22 1123 Amitriptyline HCl (Amitriptyline HCl) 10 Mg Tablet, 5 MG PO 0600,1800, (Reported) Entered as Reported by: BENI CRAFT on 06/15/22 1123 Amlodipine Besylate (Amlodipine Besylate) 10 Mg Tablet, 10 MG PO DAILY Prescribed by: MIRIAM NUÑEZ on 06/22/22 0909 Cetirizine HCl (Zyrtec) 10 Mg Tablet, 10 MG PO DAILY PRN for ALLERGY SYMPTOMS, (Reported) Entered as Reported by: ESTEBAN WHITING on 05/13/18 09 Ciprofloxacin HCl (Ciprofloxacin HCl) 500 Mg Tablet, 500 MG PO BID Prescribed by: SANIYA ROSADO on 09/08/22 1707 Clonidine HCl (Clonidine HCl) 0.1 Mg Tablet, 0.1 MG PO TID Prescribed by: MIRIAM NUÑEZ on 06/22/22 0909 D-Methorphan/Acetamin/Doxylamn (Vicks Nyquil Liquicaps) 15 Mg-325 Mg-6.25 Mg Capsule, 1 EACH PO HS PRN for SINUS CONGESTION, (Reported) Entered as Reported by: BENI CRAFT on 06/15/22 112 Diclofenac Sodium (Diclofenac Sodium) 1 % Gel..gram., 2 GM TP 1000,1400,2000, (Reported) Entered as Reported by: BENI CRAFT on 06/15/22 112 Diclofenac Sodium (Diclofenac Sodium) 1 % Gel..gram., 4 GM TP Q4H PRN for PAIN- BREAKTHROUGH, (Reported) Entered as Reported by: BENI CRAFT on 06/15/22 112 Dm/PE/Acetaminophen/Doxylamine (Vicks Dayquil-Nyquil Cold-Flu) 10-5-325MG Cap.seq, 1 EACH PO EVERY 20 HOURS, (Reported) Entered as Reported by: BENI CRAFT on 06/15/22 112 Duloxetine HCl (Cymbalta) 30 Mg Capsule.dr, 30 MG PO DAILY, (Reported) Entered as Reported by: ESTEBAN WHITING on 05/13/18 09 Ferrous Sulfate (Ferrous Sulfate) 325 Mg (65 Mg Iron) Tablet, 325 MG PO BID, (Reported) Entered as Reported by: BENI CRAFT on 06/15/22 112 Fluticasone Propionate (Fluticasone Propionate) 50 Mcg/Actuation [place].susp, 1 SPRAY NSEACH Q12H PRN for ALLERGY SYMPTOMS, (Reported) Entered as Reported by: ESTEBAN WHITING on 05/13/18 09 Gabapentin (Gabapentin) 800 Mg Tablet, 800 MG PO 0600,1000,1400, (Reported) Entered as Reported by: BENI CRAFT on 06/15/22 112 Hydralazine HCl (Hydralazine HCl) 50 Mg Tablet, 50 MG PO TID Prescribed by: MIRIAM NUÑEZ on 06/22/22 0909 Hydrocodone/Acetaminophen (Hydrocodone-Acetamin 5-325 mg) 5 Mg-325 Mg Tablet, 1- 2 EA PO Q6H PRN for PAIN-MODERATE (5-7), (Reported) Entered as Reported by: BENI CRAFT on 06/15/22 112 Hydrocodone/Acetaminophen (Hydrocodone-Acetamin 5-325 mg) 5 Mg-325 Mg Tablet, 1 EA PO 1700 Prescribed by: MIRIAM NUÑEZ on 06/22/22 0910 Hydrocortisone (Hydrocortisone) 1 % Cream..g., 1 APPLIC TP DAILY PRN for ITCHING, (Reported) Entered as Reported by: BENI CRAFT on 06/15/22 112 L. Acidophilus/L.bulgaricus (Lactobacillus Tablet) 1 Million Cell Tablet, 1 TAB PO 0600,1400, (Reported) Entered as Reported by: ESTEBAN WHITING on 05/13/18 0935 Levetiracetam (Keppra) 500 Mg Tablet, 1,500 MG PO BID, (Reported) Entered as Reported by: ESTEBAN WHITING on 05/13/18 0935 Levofloxacin (Levofloxacin) 750 Mg Tablet, 750 MG PO DAILY@0900 Prescribed by: MIRIAM NUÑEZ on 06/22/22 09 Lidocaine/Menthol (Lidocaine-Menthol 4%-1% Gel) 4 %-1 % Gel..gram., 1 APPLIC TP 0600,1000,1400, (Reported) Entered as Reported by: BENI CRAFT on 06/15/22 112 Losartan Potassium (Losartan Potassium) 100 Mg Tablet, 100 MG PO DAILY, (Reported) Entered as Reported by: BENI CRAFT on 06/15/22 112 Menthol (Biofreeze) 4 % Gel..ml., 1 APPLIC TP Q4H PRN for PAIN-BREAKTHROUGH, (Reported) Entered as Reported by: BENI CRAFT on 06/15/22 112 Metoclopramide HCl (Metoclopramide HCl) 5 Mg Tablet, 5 MG PO BID, (Reported) Entered as Reported by: BENI CRAFT on 06/15/22 112 Metoclopramide HCl (Metoclopramide HCl) 5 Mg Tablet, 2.5 MG PO BID PRN for GERD, (Reported) Entered as Reported by: BENI CRAFT on 06/15/22 112 Metoprolol Tartrate (Metoprolol Tartrate) 100 Mg Tablet, 100 MG PO BID Prescribed by: MIRIAM NUÑEZ on 06/22/22 0909 Miconazole Nitrate (Remedy Antifungal) 2 % Powder, 1 APPLIC TP BID, (Reported) Entered as Reported by: BENI CRAFT on 06/15/22 112 Multivitamin (Daily Value) 1 Each Tablet, 1 EA PO DAILY, (Reported) Entered as Reported by: ESTEBAN WHITING on 09/07/18 1209 [place] Oil (Sweet Oil) 30 Ml Oil, 2 DROP OU ROSALINO, (Reported) Entered as Reported by: BENI CRAFT on 06/15/22 112 Ondansetron HCl (Ondansetron HCl) 4 Mg Tablet, 4 MG PO Q8H PRN for NAUSEA/VOMITING-1ST LINE, (Reported) Entered as Reported by: BENI CRAFT on 06/15/22 112 Pantoprazole Sodium (Protonix) 40 Mg Tablet.dr, 40 MG PO BID, (Reported) Entered as Reported by: ESTEBAN WHITING on 05/13/18 0935 Pectin (Throat Drops) 2.8 Mg Lozenge, 2.8 MG MM EVERY 2 HOURS PRN for SORE THROAT, (Reported) Entered as Reported by: BENI CRAFT on 06/15/22 112 Simethicone (Gas-X) 125 Mg Capsule, 125 MG PO TID PRN for GAS, (Reported) Entered as Reported by: BENI CRAFT on 06/15/22 112 Trazodone HCl (Trazodone HCl) 50 Mg Tablet, 50 MG PO HS, (Reported) Entered as Reported by: BENI CRAFT on 06/15/22 112 Past Fjsocoy-Lfpcqi-Cdqcit Hx Patient Social History Smoking Status: Never a Smoker 2nd Hand Smoke Exposure: No Recent Hopitalizations: No Immunizations Up To Date Tetanus Booster (TDap): Unknown PED Vaccines UTD: Yes Date of Influenza Vaccine: Feb 14, 2021 Seasonal Allergies Seasonal Allergies: Yes Surgeries History of Surgeries: Yes Surgeries: Abdominal, Bladder Surgery, Brain Shunt, Neurological Respiratory History of Respiratory Disorde: Yes Respiratory Disorders: Asthma Cardiovascular History of Cardiac Disorders: Yes Cardiac Disorders: Hypertension Neurological History of Neurological Disord: Yes (SPINA BIFIDA--NON-AMBULATORY; HYDRCEPHALUS WITH CAR SEAT UPHOLSTERER SHUNT) Neurological Disorders: Seizure Disorder Reproductive System Sexually Transmitted Disease: No HIV/AIDS: No Genitourinary History of Genitourinary Disor: Yes (SUPRAPUBIC CATHETER; RENAL FAILURE WITH BOWEL PERFORATION) Genitourinary Disorders: Renal Failure, Neurogenic Bladder Gastrointestinal History of Gastrointestinal Di: Yes (ILEOSTOMY/COLOSTOMY FOR BOWEL PERFORATION; MULTIPLE ABDOMINAL SURGERIES) Gastrointestinal Disorders: Abdominal Hernia Musculoskeletal History of Musculoskeletal Dis: Yes (SPINA BIFIDA WITH PARAPLEGIA; CHRONIC RIGHT HIP DISLOCATION NOTED ON CT; ) Endocrine History of Endocrine Disorders: Yes (MORBID OBESITY) Endocrine Disorders: Diabetes, Non-Insulin dep HEENT History of HEENT Disorders: No Loss of Vision: Denies Hearing Impairment: Denies Cancer History of Cancer: No Psychosocial History of Psychiatric Problem: Yes Behavioral Health Disorders: Anxiety, Depression Integumentary History of Skin or Integumenta: Yes (DECUBITUS ULCERS;HX CHRONIC ABD WOUNDS POST OP) Blood Transfusions History of Blood Disorders: Yes (ANEMIA) Family Medical History Significant Family History: No Pertinent Family Hx, Other Conditions/Hx Family Medial History: Patient reports no known family medical history. Review of Systems Constitutional: No chills, No diaphoresis EENTM: No blurred vision, No double vision Respiratory: No cough, No dyspnea on exertion Cardiovascular: No chest pain, No palpitations Gastrointestinal: No abdominal pain, No nausea, No vomiting Genitourinary: No decreased output, No discharge Musculoskeletal: No back pain, No joint pain Skin: No change in color, No change in hair/nails Psychiatric/Neurological: Denies Anxiety, Denies Depressed, Denies Emotional Problems All Other Systems Reviewed Negative Unless Noted: Yes (Negative excepted noted.) Physical Exam Vital Signs Vital Signs - First Documented 09/09/22 13:48 Temp 37.1 Pulse 85 Resp 18 B/P (MAP) 163/116 Pulse Ox 94 O2 Delivery Room Air Capillary Refill : Less Than 3 Seconds Height, Weight, BMI Height: 5'4.00" Weight: 278lbs. 11.2oz. 126.199889qs; 55.29 BMI Method:Stated General Appearance: No Apparent Distress, Obese HEENT: PERRL/EOMI, Normal ENT Inspection Neck: Normal Inspection, Non Tender Respiratory: Chest Non Tender, No Accessory Muscle Use, No Respiratory Distress Cardiovascular: Regular Rate, Rhythm, No JVD Gastrointestinal: Non Tender, Soft, Other (ileostomy functinoing) Rectal: Deferred Genital/Rectal: Other (suprapubic catheter) Back: Normal Inspection, No CVA Tenderness Extremity: Non Tender, No Calf Tenderness Neurologic/Psychiatric: Alert, Oriented x3 Skin: Normal Color, Warm/Dry Lymphatic: No Adenopathy Assessment/Plan Assessment/Plan Admission Diagonsis Neurogenic bladder Suprapubic catheter malfunction Admission Status: Other (Same Day Surgery) Assessment/Plan Neurogenic bladder Suprapubic catheter malfunction Patient understands need for exchange. Will have him proceed with further exchanges in the hospital. PROCEDURE: Suprapubic catheter exchange. Patient was prepped and draped in sterile fashion. Catheter was removed. A 14 Fr balloon catheter was inserted without difficulty. Good urine return. Ballon was filled with 10mL of saline. Sterile bandage ap plied. Tolerated without difficulty. MONTY STANLEY DO Sep 09, 2022 15:56
== END 2022-09-09 15:05 | disposition home or self-care (01) ==
LOC: SDC 13:16
PROVIDERS: ATTEND Surgery
DX: N31.9 Neuromuscular dysfunction of bladder, unspecified (principal); T83.198A Other mechanical complication of other urinary devices and implants, initial encounter

== ENCOUNTER → 2022-10-09 | Outpatient (CLI) | payer MEDICARE, MEDICAID ==
[~2022-10-09] VITALS: Ht 157.5 cm; Wt 126.0 kg
[2022-10-09 13:20] VITALS: BP 168/108
== END ==
LOC: SDC 12:17
PROVIDERS: ATTEND Surgery
DX: N31.9 Neuromuscular dysfunction of bladder, unspecified (principal)

== ENCOUNTER → 2022-11-10 | Outpatient (CLI) | payer MEDICARE, MEDICAID ==
[~2022-11-10] MED LIST changes: -LOSA100T57 PO; +LOSA100T58 PO
[2022-11-10 11:55] VITALS: BP 173/109
--- NOTE | 2022-11-10 13:52 | Progress Note-Post Operative ---
Post-Operative Progess Note Surgeon (s)/Culinary Manager (s) Surgeon MONTY HARDEN DO Culinary Manager: na Pre-Operative Diagnosis Suprapubic catheter exchange needed. Post-Operative Diagnosis Suprapubic catheter exchange needed Procedure & Operative Findings Date of Procedure 11/10/22 Procedure Performed/Findings PROCEDURE: Exchange of 14-Lithuanian suprapubic catheter. SURGEON: Monty Harden DO ANESTHESIA: None. COMPLICATIONS: None. INDICATIONS: The patient is a 36-year-old male with a suprapubic catheter and needing exchange. He has had difficulty having this exchanged previously and understands risks and benefits and wishes to proceed. DESCRIPTION OF PROCEDURE: The suprapubic area was prepped and draped in sterile fashion. The catheter existing was removed. A 14-Lithuanian catheter was inserted without difficulty, got urine returned and the balloon was expanded with 10 mL of saline. Area was washed and dried and a catheter was secured. He tolerated the procedure well without complications. Anesthesia Type none Estimated Blood Loss Estimated blood loss (mL): none Specimens/Packing Specimens Removed MONTY Joseph DO Nov 10, 2022 13:52
== END | disposition home or self-care (01) ==
LOC: SDC 11:40
PROVIDERS: ATTEND Surgery
DX: N31.9 Neuromuscular dysfunction of bladder, unspecified (principal); T83.018A Breakdown (mechanical) of other urinary catheter, initial encounter; Z91.040 Latex allergy status

== ENCOUNTER → 2022-12-08 | Outpatient (CLI) | payer MEDICARE, MEDICAID ==
[~2022-12-08] VITALS: Wt 126.0 kg
[2022-12-08 12:15] VITALS: BP 168/102
== END ==
LOC: SDC 12:09
PROVIDERS: ATTEND Surgery
DX: N31.9 Neuromuscular dysfunction of bladder, unspecified (principal)

== ENCOUNTER 2023-01-03 23:01 | Emergency (ER) | payer MEDICARE, MEDICAID ==
[~2023-01-03] VITALS: Ht 157.5 cm; Wt 136.1 kg
[2023-01-03 23:05] VITALS: BP 201/114
[2023-01-04] MEDS ORDERED: DOCUSATE SODIUM 100 MG/10 ML UDC ORAL SOLN RIGHT EAR ONE (00:15)
--- NOTE | 2023-01-04 02:40 | ED General ---
General Chief Complaint: Ear Problems Stated Complaint: HYPERTENSION,EAR PROBLEMS Nursing Triage Note: PT TO [facility]IA [facility] FROM [facility] W C/O RIGHT EAR RINGING AND ECHO. PT DENIES PAIN, A&OX4. HTN NOTED BY [facility] SUPERVISOR, RN STATES PT HAS HX OF HTN AND TAKES MULTIPLE HTN MEDS. Source of Information: Patient, EMS Exam Limitations: No Limitations History of Present Illness Date Seen by Provider: Jan 04, 2023 Time Seen by Provider: 00:03 Initial Comments This 37-year-old gentleman is a resident of the halfway in [place] where he reportedly developed right ear irritation and ringing that was disturbing him this evening. He also reports a decrease of hearing in the right ear first noted this evening. He is also notably quite hypertensive. However, this is a chronic problem for him and the staff present a long log of blood pressures to demonstrate that this is a chronic issue and relatively unchanged today. Karishma forbes has chronic debility due to spina bifida. Allergies and Home Medications Allergies Coded Allergies: latex (Verified Allergy, Unknown, 09/06/18) Patient Home Medication List Home Medication List Reviewed: Yes Acetaminophen (Tylenol Extra Strength) 500 Mg Tablet, 500 MG PO HS, (Reported) Entered as Reported by: ESTEBAN WHITING on 05/13/18 0935 Acetaminophen (Tylenol Extra Strength) 500 Mg Tablet, 1,000 MG PO Q8H PRN for PAIN-MILD (1-4), (Reported) Entered as Reported by: BENI CRAFT on 06/15/22 1123 Allopurinol (Allopurinol) 100 Mg Tablet, 100 MG PO DAILY, (Reported) Entered as Reported by: ESTEBAN WHITING on 05/13/18 0935 Alprazolam (Alprazolam) 0.5 Mg Tablet, 0.5 MG PO TID PRN for ANXIETY, (Reported) Entered as Reported by: BENI CRAFT on 06/15/22 1123 Amitriptyline HCl (Amitriptyline HCl) 10 Mg Tablet, 5 MG PO 0600,1800, (Reported) Entered as Reported by: BENI CRAFT on 06/15/22 1123 Amlodipine Besylate (Amlodipine Besylate) 10 Mg Tablet, 10 MG PO DAILY Prescribed by: MIRIAM SIERRA on 06/22/22 0909 Cetirizine HCl (Zyrtec) 10 Mg Tablet, 10 MG PO DAILY PRN for ALLERGY SYMPTOMS, (Reported) Entered as Reported by: ESTEBAN WHITING on 05/13/18 09 Ciprofloxacin HCl (Ciprofloxacin HCl) 500 Mg Tablet, 500 MG PO BID Prescribed by: SANIYA ROSADO on 09/08/22 1707 Clonidine HCl (Clonidine HCl) 0.1 Mg Tablet, 0.1 MG PO TID Prescribed by: MIRIAM SIERRA on 06/22/22 0909 D-Methorphan/Acetamin/Doxylamn (Vicks Nyquil Liquicaps) 15 Mg-325 Mg-6.25 Mg Capsule, 1 EACH PO HS PRN for SINUS CONGESTION, (Reported) Entered as Reported by: BENI CRAFT on 06/15/22 112 Diclofenac Sodium (Diclofenac Sodium) 1 % Gel..gram., 2 GM TP 1000,1400,2000, (Reported) Entered as Reported by: BENI CRAFT on 06/15/22 112 Diclofenac Sodium (Diclofenac Sodium) 1 % Gel..gram., 4 GM TP Q4H PRN for PAIN-BREAKTHROUGH, (Reported) Entered as Reported by: BENI CRAFT on 06/15/22 112 Dm/PE/Acetaminophen/Doxylamine (Vicks Dayquil-Nyquil Cold-Flu) 10-5-325MG Cap.seq, 1 EACH PO EVERY 20 HOURS, (Reported) Entered as Reported by: BENI CRAFT on 06/15/22 112 Duloxetine HCl (Cymbalta) 30 Mg Capsule.dr, 30 MG PO DAILY, (Reported) Entered as Reported by: ESTEBAN WHITING on 05/13/18 09 Ferrous Sulfate (Ferrous Sulfate) 325 Mg (65 Mg Iron) Tablet, 325 MG PO BID, (Reported) Entered as Reported by: BENI CRAFT on 06/15/22 112 Fluticasone Propionate (Fluticasone Propionate) 50 Mcg/Actuation [place]y.susp, 1 SPRAY NSEACH Q12H PRN for ALLERGY SYMPTOMS, (Reported) Entered as Reported by: ESTEBAN WHITING on 05/13/18 09 Gabapentin (Gabapentin) 800 Mg Tablet, 800 MG PO 0600,1000,1400, (Reported) Entered as Reported by: BENI CRAFT on 06/15/22 112 Hydralazine HCl (Hydralazine HCl) 50 Mg Tablet, 50 MG PO TID Prescribed by: MIRIAM SIERRA on 06/22/22 0909 Hydrocodone/Acetaminophen (Hydrocodone-Acetamin 5-325 mg) 5 Mg-325 Mg Tablet, 1- 2 EA PO Q6H PRN for PAIN-MODERATE (5-7), (Reported) Entered as Reported by: BENI CRAFT on 06/15/22 112 Hydrocodone/Acetaminophen (Hydrocodone-Acetamin 5-325 mg) 5 Mg-325 Mg Tablet, 1 EA PO 1700 Prescribed by: MIRIAM SIERRA on 06/22/22 0910 Hydrocortisone (Hydrocortisone) 1 % Cream..g., 1 APPLIC TP DAILY PRN for ITCHING , (Reported) Entered as Reported by: BENI CRAFT on 06/15/22 112 L. Acidophilus/L.bulgaricus (Lactobacillus Tablet) 1 Million Cell Tablet, 1 TAB PO 0600,1400, (Reported) Entered as Reported by: ESTEBAN WHITING on 05/13/18 0935 Levetiracetam (Keppra) 500 Mg Tablet, 1,500 MG PO BID, (Reported) Entered as Reported by: ESTEBAN WHITING on 05/13/18 0935 Levofloxacin (Levofloxacin) 750 Mg Tablet, 750 MG PO DAILY@0900 Prescribed by: MIRIAM SIERRA on 06/22/22 09 Lidocaine/Menthol (Lidocaine-Menthol 4%-1% Gel) 4 %-1 % Gel..gram., 1 APPLIC TP 0600,1000,1400, (Reported) Entered as Reported by: BENI CRAFT on 06/15/22 112 Losartan Potassium (Losartan Potassium) 100 Mg Tablet, 100 MG PO DAILY, (Reported) Entered as Reported by: BENI CRAFT on 06/15/22 112 Menthol (Biofreeze) 4 % Gel..ml., 1 APPLIC TP Q4H PRN for PAIN-BREAKTHROUGH, (Reported) Entered as Reported by: BENI CRAFT on 06/15/22 112 Metoclopramide HCl (Metoclopramide HCl) 5 Mg Tablet, 5 MG PO BID, (Reported) Entered as Reported by: BENI CRAFT on 06/15/22 112 Metoclopramide HCl (Metoclopramide HCl) 5 Mg Tablet, 2.5 MG PO BID PRN for GERD, (Reported) Entered as Reported by: BENI CRAFT on 06/15/22 112 Metoprolol Tartrate (Metoprolol Tartrate) 100 Mg Tablet, 100 MG PO BID Prescribed by: MIRIAM SIERRA on 06/22/22 0909 Miconazole Nitrate (Remedy Antifungal) 2 % Powder, 1 APPLIC TP BID, (Reported) Entered as Reported by: BENI CRAFT on 06/15/22 112 Multivitamin (Daily Value) 1 Each Tablet, 1 EA PO DAILY, (Reported) Entered as Reported by: ESTEBAN WHITING on 09/07/18 1209 [place] Oil (Sweet Oil) 30 Ml Oil, 2 DROP OU ROSALINO, (Reported) Entered as Reported by: BENI CRAFT on 06/15/22 112 Ondansetron HCl (Ondansetron HCl) 4 Mg Tablet, 4 MG PO Q8H PRN for NAUSEA/VOMITING-1ST LINE, (Reported) Entered as Reported by: BENI CRAFT on 06/15/22 112 Pantoprazole Sodium (Protonix) 40 Mg Tablet.dr, 40 MG PO BID, (Reported) Entered as Reported by: ESTEBAN WHITING on 05/13/18 0935 Pectin (Throat Drops) 2.8 Mg Lozenge, 2.8 MG MM EVERY 2 HOURS PRN for SORE THRO AT, (Reported) Entered as Reported by: BENI CRAFT on 06/15/22 112 Simethicone (Gas-X) 125 Mg Capsule, 125 MG PO TID PRN for GAS, (Reported) Entered as Reported by: BENI CRAFT on 06/15/22 112 Trazodone HCl (Trazodone HCl) 50 Mg Tablet, 50 MG PO HS, (Reported) Entered as Reported by: BENI CRAFT on 06/15/221122 Review of Systems Review of Systems Constitutional: no symptoms reported EENTM: see HPI Respiratory: no symptoms reported Cardiovascular: see HPI Gastrointestinal: no symptoms reported Genitourinary: no symptoms reported Musculoskeletal: no symptoms reported Skin: no symptoms reported Psychiatric/Neurological: See HPI Hematologic/Lymphatic: No Symptoms Reported Immunological/Allergic: no symptoms reported Past Hdejelp-Djvmiv-Ikealy Hx Patient Social History Tobacco Use?: No Use of E-Cig and/or Vaping dev: No Substance use?: No Alcohol Use?: No Immunizations Up To Date Tetanus Booster (TDap): Unknown PED Vaccines UTD: Yes First/Initial COVID19 Vaccinat: 05/31/2020 Second COVID19 Vaccination Dieudonne: 06/20/2020 Third COVID19 Vaccination Date: 05/31/2020 Seasonal Allergies Seasonal Allergies: Yes Past Medical History Surgery/Hospitalization HX: 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 SPINABIFIDA, GOUT, HTN, SEIZURES, HRN, NEUROGENIC BLADDER, NIDDM, NON-AMBULATORY, DEPRESSION. 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 SHUNT) Seizure Disorder Sexually Transmitted Disease: No HIV/AIDS: No Genitourinary: Yes (SUPRAPUBIC CATHETER; RENAL FAILURE WITH BOWEL PERFORATION) Renal Failure, Neurogenic Bladder Gastrointestinal: Yes (ILEOSTOMY/COLOSTOMY FOR BOWEL PERFORATION; MULTIPLE ABDOMINAL SURGERIES) Abdominal Hernia Musculoskeletal: Yes (SPINA BIFIDA WITH PARAPLEGIA; CHRONIC RIGHT HIP DISLOCATION NOTED ON CT; ) Endocrine: Yes (MORBID OBESITY) Diabetes, Non-Insulin dep HEENT: No Loss of Vision: Denies Hearing Impairment: Denies Cancer: No Psychosocial: Yes Anxiety, Depression Integumentary: Yes (DECUBITUS ULCERS;HX CHRONIC ABD WOUNDS POST OP) Blood Disorders: Yes (ANEMIA) Family Medical History Patient reports no known family medical history. 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 11.2oz. 126.191010vx; 54.00 BMI Method:Stated General Appearance: No Apparent Distress, WD/WN HEENT: PERRL/EOMI, Normal ENT Inspection, TM Abnormal (R) (Obscured by cerumen impaction), Other (Left TM normal) Neck: Normal Inspection Respiratory: Lungs Clear, Normal Breath Sounds Cardiovascular: Regular Rate, Rhythm, No Murmur, Other (Chronic lower extremity edema noted) Extremity: Non Tender Neurologic/Psychiatric: Alert, Oriented x3, Normal Mood/Affect Skin: Normal Color, Warm/Dry Progress/Results/Core Measures Suspected Sepsis SIRS Temperature: Pulse: 86 Respiratory Rate: 20 Blood Pressure 201 /114 Mean: 143 Results/Orders My Orders Orders - SANIYA JEFF MD Docusate Sodium Oral Solution (Docusate (01/04/23 00:15) Medications Given in ED Current Medications Medications Dose Ordered Sig/Sridevi Route Start Time Stop Time Status Last Admin Dose Admin Docusate Sodium 50 mg ONCE ONCE RIGHT EAR 01/04/23 00:15 01/04/23 00:16 DC 01/04/23 00:35 50 MG Vital Signs/I&O 01/03/23 23:05 Temp 36.2 Pulse 86 Resp 20 B/P (MAP) 201/114 (143) Pulse Ox 95 O2 Delivery Room Air Capillary Refill : Less Than 3 Seconds Blood Pressure Mean: 143 Progress Note : Progress Note Right ear cerumen impaction was noted. Ear was pretreated with liquid Colace. Was then irrigated with warm water with a small quantity of peroxide and some chlorhexidine soap. A large wax ball was flushed out followed by more waxy debris. Examination of the ear after irrigation demonstrated no significant inflammation, perforation of the tympanic membrane, retained rinse solution, or other abnormalities. However, patient was still unable to hear on the right. This hearing deficit was not explainable based on his exam. I have advised him to follow-up with an ENT provider should this hearing not returned to baseline within the next day or 2. Departure Impression Primary Impression: Right ear impacted cerumen Additional Impressions: Hearing loss in right ear Qualified Codes: H91.91 - Unspecified hearing loss, right ear Chronic hypertension Disposition: 01 HOME, SELF-CARE Condition: Improved Departure-Patient Inst. Decision time for Depature: 02:38 Referrals: MIRIAM SIERRA MD (PCP/Family) Primary Care Physician Patient Instructions: Ear Wax Impaction ED, Hearing Loss in Adults Add. Discharge Instructions: The earwax impaction in your right ear was resolved in the emergency room. The cause of your hearing loss is uncertain. If hearing does not return within a day or two, please follow-up with your primary care provider and discuss referral to an ENT provider for further evaluation. Continue to work with your primary care provider on blood pressure control. Return to care if you have worsening symptoms despite following these instructions. All discharge instructions reviewed with patient and/or family. Voiced understanding. Copy Copies To 1: MIRIAM SIERRA MD, JOSHUA T MD Jan 04, 2023 02:40
== END 2023-01-04 02:47 | disposition home or self-care (01) ==
LOC: EDUNIT# 23:01 → ER 23:03
DX: H61.21 Impacted cerumen, right ear (principal); I10 Essential (primary) hypertension; E66.01 Morbid (severe) obesity due to excess calories; Z68.43 Body mass index [BMI] 50.0-59.9, adult; Z91.040 Latex allergy status
CPT/HCPCS: 99283

== ENCOUNTER 2023-01-05 13:06 | Outpatient (RCR) | payer MEDICARE, MEDICAID ==
[2023-01-05 15:03] VITALS: BP 146/94
--- NOTE | 2023-01-06 14:14 | Progress Note-Post Operative ---
Post-Operative Progess Note Surgeon (s)/Hydrotreater Operator (s) Surgeon MONTY HARDEN DO Hydrotreater Operator: na Pre-Operative Diagnosis neurogenic bladder Post-Operative Diagnosis same Procedure & Operative Findings Date of Procedure 01/06/23 Procedure Performed/Findings PROCEDURE: Exchange of 14-Kittitian suprapubic catheter. SURGEON: Monty Harden DO ANESTHESIA: None. COMPLICATIONS: None. INDICATIONS: The patient is a 36-year-old male with neurogenic bladder has suprapubic catheter and needing exchange. He has had difficulty having this exchanged previously and understands risks and benefits and wishes to proceed. DESCRIPTION OF PROCEDURE: The suprapubic area was prepped and draped in sterile fashion. The catheter existing was removed. A 14-Kittitian catheter was inserted without difficulty, got urine returned and the balloon was expanded with 10 mL of saline. Area was washed and dried and a catheter was secured. He tolerated the procedure well without complications. Anesthesia Type none Estimated Blood Loss Estimated blood loss (mL): none Specimens/Packing Specimens Removed none MONTY HARDEN DO Jan 06, 2023 14:14
== END 2023-01-05 15:03 | disposition home or self-care (01) ==
LOC: SDC 13:06
PROVIDERS: ATTEND Surgery
DX: N31.9 Neuromuscular dysfunction of bladder, unspecified (principal)

== ENCOUNTER → 2023-03-16 | Outpatient (CLI) | payer MEDICARE, MEDICAID ==
[~2023-03-16] VITALS: Wt 136.1 kg
[~2023-03-16] MED LIST changes: -DICL100G13 TP; +DICL100G60 TP
[2023-03-16 12:25] VITALS: BP 184/111
--- NOTE | 2023-03-17 10:48 | Progress Note-Post Operative ---
Post-Operative Progess Note Surgeon (s)/Casing Puller (s) Surgeon MONTY STANLEY DO Casing Puller: na Pre-Operative Diagnosis neurogenic bladder Post-Operative Diagnosis same Procedure & Operative Findings Date of Procedure 03/17/23 Procedure Performed/Findings INDICATIONS: The patient is a 37-year-old male with neurogenic bladder has suprapubic catheter and needing exchange. He has had difficulty having this exchanged previously and understands risks and benefits and wishes to proceed. DESCRIPTION OF PROCEDURE: The suprapubic area was prepped and draped in sterile fashion. The catheter existing was removed. A 14-Stateless catheter was inserted without difficulty, got urine returned and the balloon was expanded with 10 mL of saline. Area was washed and dried and a catheter was secured. He tolerated the procedure well without complications. Anesthesia Type none Estimated Blood Loss Estimated blood loss (mL): none Specimens/Packing Specimens Removed none MONTY STANLEY DO Mar 17, 2023 10:48
== END ==
LOC: SDC 12:13
PROVIDERS: ATTEND Surgery
DX: N31.9 Neuromuscular dysfunction of bladder, unspecified (principal)

== ENCOUNTER → 2023-04-13 | Outpatient (CLI) | payer MEDICARE, MEDICAID ==
[~2023-04-13] VITALS: Wt 136.1 kg
[2023-04-13 12:35] VITALS: BP 155/100
--- NOTE | 2023-04-13 14:30 | Progress Note-Post Operative ---
Post-Operative Progess Note Surgeon (s)/Spring Up Supervisor (s) Surgeon MONTY STANLEY DO Spring Up Supervisor: n/a Pre-Operative Diagnosis neurogenic bladder Post-Operative Diagnosis same Procedure & Operative Findings Date of Procedure 04/13/23 Procedure Performed/Findings Surgeon MONTY STANLEY DO Procedure & Operative Findings Date of Procedure 04/13/2023 Procedure Performed/Findings INDICATIONS: The patient is a 37-year-old male with neurogenic bladder has suprapubic catheter and needing exchange. He has had difficulty having this exchanged previously and understands risks and benefits and wishes to proceed. DESCRIPTION OF PROCEDURE: The suprapubic area was prepped and draped in sterile fashion. The catheter existing was removed. A 14-Maori catheter was inserted without difficulty, got urine returned and the balloon was expanded with 10 mL of saline. Area was washed and dried and a catheter was secured. He tolerated the procedure well without complications. Anesthesia Type none Estimated Blood Loss Estimated blood loss (mL): none Specimens/Packing Specimens Removed none MONTY STANLEY DO Apr 13, 2023 14:30
== END ==
LOC: SDC 12:34
PROVIDERS: ATTEND Surgery
DX: N31.9 Neuromuscular dysfunction of bladder, unspecified (principal)